=== PATIENT | male | born 1935 | race Caucasian/White ===

== ENCOUNTER 2018-03-12 13:23 | Inpatient (IN) | payer OTHER, BC ==
--- NOTE | 2018-03-12 14:11 | PDOC ---
History of Present Illness <Elysia Thompson - Last Filed: 03/12/18 18:00> - History of Present Illness Initial Comments: Patient is a 82 yo male, with a significant past medical history of GERD, BPH, who presents to the emergency department complaining of one days of myalgias, N/ V and abdominal pain. Pt complaining yesterday of generalized fatigue, poor PO intake. This AM, pt ate eggs for breakfast and after began have multiple episode of NBNB emesis with nausea and persistent midline burning abdominal pain with no radiation. Pt with no hx of other GI conditions, except GERD for which he takes antacid. No other medical conditions. No recent diet changes, sick contact, travel, trauma. Endorses occasional palpitations this AM. Denies f /c, CP, SOB, back pain, dysuria, cough, melena, hematochezia, rashe, LE swelling. Last BM yesterday, normal color and caliber with no blood. Seen at [facility] for symptoms, sent to ED due to elevated WBC 18, hematocrit elevated. Allergies: none Past surgical history: none Social History: No toxic habits PMD: None currently 03/12/18 14:19 <Ken Chowdary - Last Filed: 03/15/18 17:18> - General Chief Complaint: Pain Stated Complaint: NAUSEA Time Seen by Provider: 03/12/18 13:56 Past History <Elysia Thompson - Last Filed: 03/12/18 18:00> - Past Medical History Anemia: No Asthma: No Cancer: No Cardiac Disorders: No CVA: No COPD: No CHF: No Dementia: No Diabetes: No GI Disorders: Yes (acid reflux) Disorders: No HTN: No Hypercholesterolemia: No Liver Disease: No Seizures: No Thyroid Disease: No - Suicide/Smoking/Psychosocial Hx Smoking History: Never smoked Have you smoked in the past 12 months: No Information on smoking cessation initiated: No Hx Alcohol Use: No Drug/Substance Use Hx: No Substance Use Type: None <Ken Chowdary - Last Filed: 03/15/18 17:18> - Past Medical History Allergies/Adverse Reactions: Allergies Allergy/AdvReac Type Severity Reaction Status Date / Time Fish Containing Products Allergy Verified 03/12/18 13:39 Home Medications: Ambulatory Orders Finasteride 5 mg PO DAILY 03/12/18 Omeprazole 20 mg PO DAILY 03/12/18 Tamsulosin HCl 0.4 mg PO DAILY 03/12/18 Review of Systems - Review of Systems Comments:: 03/12/18 14:43 GENERAL/CONSTITUTIONAL: No fever or chills. +weakness. HEAD, EYES, EARS, NOSE AND THROAT: No change in vision. No ear pain or discharge. No sore throat. CARDIOVASCULAR: +palpitations. No chest pain or shortness of breath RESPIRATORY: No cough, wheezing, or hemoptysis. GASTROINTESTINAL: +N/V. No diarrhea or constipation. GENITOURINARY: No dysuria, frequency, or change in urination. MUSCULOSKELETAL: +Diffuse myalgias. No joint pain. No neck or back pain. SKIN: No rash NEUROLOGIC: No headache, vertigo, loss of consciousness, or change in strength/ sensation. ENDOCRINE: No increased thirst. No abnormal weight change HEMATOLOGIC/LYMPHATIC: No anemia, easy bleeding, or history of blood clots. ALLERGIC/IMMUNOLOGIC: No hives or skin allergy. <Ken Chowdary - Last Filed: 03/15/18 17:18> *Physical Exam - Vital Signs Last Vital Signs Temp Pulse Resp BP Pulse Ox 97.8 F 84 18 120/64 92 L 03/12/18 13:39 03/12/18 14:17 03/12/18 13:39 03/12/18 13:39 03/12/18 14:17 <Elysia Thompson - Last Filed: 03/12/18 18:00> - Vital Signs Last Vital Signs Temp Pulse Resp BP Pulse Ox 97.8 F 106 H 18 120/64 84 L 03/12/18 13:39 03/12/18 13:39 03/12/18 13:39 03/12/18 13:39 03/12/18 13:39 - Physical Exam Comments: GENERAL: Eldelry man, Awake, alert, and fully oriented, in mild distress, constant retching during interview HEAD: No signs of trauma, normocephalic, atraumatic EYES: PERRLA, EOMI, sclera anicteric, conjunctiva clear ENT: Auricles normal inspection, hearing grossly normal, nares patent, oropharynx clear without exudates. Moist mucosa NECK: Normal ROM, supple, no lymphadenopathy, JVD, or masses LUNGS: +Bibasilar crackles. No distress, speaks full sentences HEART: Regular rate and rhythm, normal S1 and S2, no murmurs, rubs or gallops, peripheral pulses normal and equal bilaterally. ABDOMEN: Distended, diffusely tender to palpation, primarily in the epigastric region. + murphys. normoactive bowel sounds. voluntary guarding, no rebound. No masses EXTREMITIES : Normal inspection, Normal range of motion, no edema. No clubbing or cyanosis. NEUROLOGICAL: Cranial nerves II through XII grossly intact. Normal speech, normal gait, no focal sensorimotor deficits SKIN: Warm, Dry, normal turgor, no rashes or lesions noted 03/12/18 14:44 <Ken Chowdary - Last Filed: 03/15/18 17:18> ED Treatment Course - LABORATORY CBC & Chemistry Diagram: 03/12/18 14:45 03/12/18 14:45 - ADDITIONAL ORDERS Additional order review: Laboratory Results 03/12/18 03/12/18 03/12/18 15:13 14:45 14:45 Anticoagulation Therapy No Result Required. Puncture Site Right radial ABG pH 7.53 H ABG pCO2 at Pt Temp 44.2 ABG pO2 at Pt Temp 62.5 L ABG HCO3 36.8 H ABG O2 Sat (Measured) 93.2 ABG O2 Content 23.5 H ABG Base Excess 12.2 H Fernando Test Positive Carboxyhemoglobin 1.8 Methemoglobin 1.2 O2 Delivery Device Non-rebreather Oxygen Flow Rate Yes Vent Mode No Result Required. Vent Rate No Result Required. Mechanical Rate No Result Required. Pressure Support Vent No Result Required. Sodium 132 L Potassium 4.1 Chloride 85 L D Carbon Dioxide 35 H D Anion Gap 12 BUN 26 H D Creatinine 1.5 H D Creat Clearance w eGFR 45.03 Random Glucose 191 H D Lactic Acid 3.4 H* Calcium 10.1 Total Bilirubin 3.3 H D AST 79 H D ALT 67 D Alkaline Phosphatase 98 D Creatine Kinase 527 H Creatine Kinase Index 1.0 CK-MB (CK-2) 5.556 H Troponin I 0.02 Total Protein 7.5 Albumin 3.5 Lipase 84 03/12/18 14:45 RBC 6.09 H D MCV 89.7 MCHC 33.7 RDW 12.8 MPV 8.9 Neutrophils % 87.5 H D Lymphocytes % 5.9 L D Monocytes % 6.3 Eosinophils % 0.0 D Basophils % 0.3 - Medications Given in the ED: ED Medications Discontinued Medications Generic Name Dose Route Start Last Admin Trade Name Tushar PRN Reason Stop Dose Admin Ondansetron HCl 4 mg 03/12/18 14:18 03/12/18 15:19 Zofran Injection IVPUSH 03/12/18 14:19 4 mg ONCE ONE Administration <Elysia Thompson - Last Filed: 03/12/18 18:00> - LABORATORY CBC & Chemistry Diagram: 03/15/18 05:55 03/15/18 05:55 <Ken Chowdary - Last Filed: 03/15/18 17:18> Medical Decision Making - Medical Decision Making 82 yo male, with a significant past medical history of GERD, BPH, who presents to the emergency department complaining of one days of myalgias, N/V and abdominal pain. Pt satting 84% on 4LC. PE noted as above. Ddx included PUD, gastritis, SBO, constipation, ileus, boerhaves, ACS, pancreatitis, PE. Plan: - EKG, CXR, ABG - CMP, CBC, lipase, lactid acid, trops, blood cultures - methhemoglobin, carboxyhemoglobin - UA - Will send stool culture, GE panel, O+P - Likely admission - Will order for zofran IV and NRB for O2. 03/12/18 14:49 Pt satting 92% on 100% NRB. No acute respiratory distress at this time. Lung exam notable for BL decreased breath sounds at bases. ABG notable for 7.53/64/ 36. Must consider PE at this point, consider tachycardia and hypoxia on admission, although more likely hypoxia secondary to atelectasis and poor air entry secondary to abdominal distension, splinting, retching. Will bolus 1L given Cr 1.5, consider starting anticoagulation. 03/12/18 17:00 CT confirmed SBO secondary to incarcerated bowel in L inguinal hernia. Pt made NPO, NG tube placed, drained 5L gastric fluid initially. General surgery consulted, spoke with Dr. Clement to discuss case. Surgery recommended icing and attempt at reduction at bedside. Also, mentioned he had two surgeries pending and was over 30 minutes away. Rediscussed case with Attending Dr. Thompson. Given acuity of presentation and imaging results, consulted Dr. Manpreet Fox for surgical consult. Pt seen by Dr. fox, recommend IVF bolus, abx coverage admission to Telemetry and likely OR. [employer] microblog sent, awaiting callback 03/12/18 19:29 <Ken Chowdary - Last Filed: 03/15/18 17:18> *DC/Admit/Observation/Transfer <Elysia Thompson - Last Filed: 03/12/18 18:00> <Ken Chowdary - Last Filed: 03/15/18 17:18> Diagnosis at time of Disposition: Incarcerated left inguinal hernia - Discharge Dispostion Condition at time of disposition: Critical
[2018-03-12] MEDS ORDERED: ONDANSETRON 4 MG/2 ML VIAL IVPUSH PRN ×2 (14:18→21:15)
[2018-03-12] MEDS ORDERED: ONDANSETRON 4 MG/2 ML VIAL IVPUSH ONE ×2 (14:18→22:21)
[2018-03-12 14:58] LABS: BASO % 0.3 % (0-2.0); HEMATOCRIT 54.6 % (35.4-49); HEMOGLOBIN 18.4 GM/dL (11.7-16.9); LYMPH % 5.9 % (8-40); MCH 30.2 pg (25.7-33.7); MCHC 33.7 g/dl (32.0-35.9); MEAN CELL VOLUME 89.7 fl (80-96); MEAN PLT VOLUME 8.9 fl (7.5-11.1); MONO % 6.3 % (3.8-10.2); NEUT % 87.5 % (42.8-82.8); PLATELET COUNT 276 K/MM3 (134-434); RBC 6.09 M/mm3 (4.00-5.60); RDW 12.8 % (11.9-15.9)
[2018-03-12] MEDS ORDERED: ONDANSETRON 4 MG/2 ML VIAL ONE ×3 (15:03→22:05)
[2018-03-12 15:19] LABS: ALBUMIN 3.5 g/dl (3.4-5.0); ANION GAP 12 (8-16); BILIRUBIN,TOTAL 3.3 mg/dL (0.2-1.0); BLOOD UREA NITROGEN 26 mg/dL (7-18); CALCIUM 10.1 mg/dL (8.5-10.1); CHLORIDE 85 mmol/L (98-107); CO2 35 mmol/L (21-32); CREATININE 1.5 mg/dL (0.7-1.3); GLUCOSE,RANDOM 191 mg/dL (74-106); LIPASE 84 U/L (73-393); SGPT/ALT 67 U/L (12-78); SODIUM 132 mmol/L (136-145); TOT PROT 7.5 g/dl (6.4-8.2)
[2018-03-12 15:22] LABS: ALK PHOS 98 U/L (45-117)
[2018-03-12 15:24] LABS: POTASSIUM 4.1 mmol/L (3.5-5.1); SGOT/AST 79 U/L (15-37)
[2018-03-12 16:31] LABS: ARTERIAL BLD GAS O2 SATURATION 93.2 % (90-98.9); ARTERIAL BLOOD GAS BASE EXCESS 12.2 meq/l (-2-2); ARTERIAL BLOOD GAS PCO2 44.2 mmHg (35-45); ARTERIAL BLOOD GAS PO2 62.5 mmHg (68-100); ARTERIAL BLOOD GAS pH 7.53 (7.35-7.45); CARBOXYHEMOGLOBIN 1.8 gm% (0.5-2.0)
[2018-03-12 16:33] LABS: ALLENS TEST POSITIVE
[2018-03-12] MEDS ORDERED: LACTATED RINGERS SOLUTION 1,000 ML/1,000 ML INFUS.BAG IV STA ×2 (17:04→19:49)
[2018-03-12] MEDS ORDERED: PIPERACILLIN/TAZOB 4.5 GM 4.5 GM in DEXTROSE 5%-WATER - 100 ML IVPB ONE (17:46)
[2018-03-12] MEDS ORDERED: PIPERACILLIN/TAZOB 4.5 GM 4.5 GM/100 ML BAG IVPB ONE (17:51)
[2018-03-12] MEDS ORDERED: morphine SULFATE 4 MG/ML VIAL IVPUSH ONE (18:17)
[2018-03-12] MEDS ORDERED: LIDOCAINE HCL 2% JELLY (5 ML/TUBE) ONE (18:22)
--- NOTE | 2018-03-12 19:04 | PDOC ---
Attending Attestation - Resident Resident Name: Ken Chowdary - ED Attending Attestation I have performed the following: I have examined & evaluated the patient, The case was reviewed & discussed with the resident, I agree w/resident's findings & plan, Exceptions are as noted - HPI HPI: 03/12/18 18:52 Mr Guido is a 82-year-old male who presents emergency department from [facility] due to hypoxia, abdominal distention. Patient's states that his symptoms began this morning. He was noted to have epigastric pain, was examined multiple episodes of emesis. His notes that his abdomen is distended. Patient's thought he was suffering from an upper respiratory infection. On examination: Patient is noted to be hypoxic. Decreased breath sounds at the bases. Patient's abdomen is distended, tender to palpation. - Physicial Exam PE: 03/12/18 19:04 GENERAL: The patient is in no acute distress. LUNGS: Decreased breath sounds at the bases. HEART:Regular rate and rhythm, normal S1 and S2 without murmur, rub or gallop. ABDOMEN: Soft, abd distention, epigastric trenderness to palpation EXTREMITIES: Normal range of motion, no edema. NEUROLOGICAL: Cranial nerves II through XII grossly intact. Normal speech. No focal neurological deficits. MUSCULOSKELETAL: Back non-tender to palpation, no CVA tenderness SKIN: Warm, Dry, normal turgor, no rashes or lesions noted. - Medical Decision Making 03/12/18 19:04 Laboratory Tests 03/12/18 03/12/18 03/12/18 14:45 14:45 14:45 WBC 17.0 H D Hgb 18.4 H D Hct 54.6 H D Plt Count 276 D Neutrophils % 87.5 H D Lymphocytes % 5.9 L D ABG pH ABG pCO2 at Pt Temp ABG pO2 at Pt Temp ABG HCO3 Sodium 132 L Potassium 4.1 Chloride 85 L D Carbon Dioxide 35 H D Anion Gap 12 BUN 26 H D Creatinine 1.5 H D Random Glucose 191 H D Lactic Acid 3.4 H* Creatine Kinase 527 H Creatine Kinase Index 1.0 CK-MB (CK-2) 5.556 H Troponin I 0.02 03/12/18 15:13 WBC Hgb Hct Plt Count Neutrophils % Lymphocytes % ABG pH 7.53 H ABG pCO2 at Pt Temp 44.2 ABG pO2 at Pt Temp 62.5 L ABG HCO3 36.8 H Sodium Potassium Chloride Carbon Dioxide Anion Gap BUN Creatinine Random Glucose Lactic Acid Creatine Kinase Creatine Kinase Index CK-MB (CK-2) Troponin I CT unofficially read Demonstrates: Bibasilar infiltrates SBO ? incarcerated left inguinal hernia Pt likely with incarcerated hernia with resulting SBO, emesis with aspiration Critical Care Time/MDM Note Total Critical Care Time: 120 Critical Care Statement: The care of this patient involved high complexity decision making to prevent further life threatening deterioration of the patient 's condition and/or to evaluate & treat vital organ system(s) failure or risk of failure.
[2018-03-12] MEDS ORDERED: CLINDAMYCIN 600MG PREMIX IVPB 600 MG/50 ML BAG IVPB ONE ×2 (19:15→20:44)
[2018-03-12 19:35] LABS: BASO % 0.2 % (0-2.0); EOS % 0.1 % (0-4.5); HEMATOCRIT 52.4 % (35.4-49); HEMOGLOBIN 17.7 GM/dL (11.7-16.9); LYMPH % 25.5 % (8-40); MCH 30.2 pg (25.7-33.7); MCHC 33.7 g/dl (32.0-35.9); MEAN CELL VOLUME 89.7 fl (80-96); MEAN PLT VOLUME 8.6 fl (7.5-11.1); MONO % 9.2 % (3.8-10.2); PLATELET COUNT 214 K/MM3 (134-434); RBC 5.84 M/mm3 (4.00-5.60); RDW 12.8 % (11.9-15.9)
--- NOTE | 2018-03-12 19:55 | CONSULT ---
Consult Consult Specialty:: general surgery Referred by:: Elysia Thompson MD Reason for Consultation:: SBO with incarcerated LIH - History of Present Illness Chief Complaint: abdominal distension and vomiting History of Present Illness: 82 yo male PMH BPH, degernerative disc disease (cervical), diverticulosis, hemorrhoids presented to the ED with abdominal pain and vomiting for on day. He reports that he was weight training yesterday and developed some left groin pain. He awoke this morning with hoarseness and significant abdominal distension. He did not have a history of groin hernia, but may have had an umbilical hernia repair. He reports several episodes of bilious emesis 10 since morning and he has not been passing flatus. Last BM was yesterday and was normal. Previous colonoscopy and EGD revealing diverticulum and a hiatal hernia. No recent weight loss, family history of cancer. In the ED he has been tachycardic 104, had a CT scan that shows a SBO with unclear transition point, His lactic acid on triage was 3.4. He has an NGT (55cm) that put out 5 liters of output since placement. We were called as a second career development consultant, after the other surgeon was unavailable. We were asked to assess. - History Source History Provided By: Patient, Medical Record Limitations to Obtaining History: No Limitations - Past Medical History Renal/: Yes: BPH Musculoskeletal: Yes: Osteoarthritis - Past Surgical History Past Surgical History: Yes: Hernia Repair (umbilcal?) - Alcohol/Substance Use Hx Alcohol Use: No History of Substance Use: reports: None - Smoking History Smoking history: Never smoked Have you smoked in the past 12 months: No - Social History Usual Living Arrangement: With Spouse (49yrs) Occupation: retired [employer] Place of : [facility] History of Recent Travel: No Home Medications - Allergies Allergies/Adverse Reactions: Allergies Allergy/AdvReac Type Severity Reaction Status Date / Time Fish Containing Products Allergy Verified 03/12/18 13:39 - Home Medications Home Medications: Ambulatory Orders Finasteride 5 mg PO DAILY 03/12/18 Omeprazole 20 mg PO DAILY 03/12/18 Tamsulosin HCl 0.4 mg PO DAILY 03/12/18 Review of Systems - Review of Systems Constitutional: denies: Chills, Fever, Unintentional Wgt. Loss, Weakness Eyes: denies: Blind Spots, Recent Change in Vision Neck: reports: Pain on Movement, Stiffness Cardiovascular: denies: Chest Pain, Palpitations Respiratory: denies: Cough, SOB Gastrointestinal: reports: Abdominal Pain, Bloating, Indigestion, Vomiting Genitourinary: reports: Frequency. denies: Burning, Discharge Breasts: reports: No Symptoms Reported. denies: Pain Musculoskeletal: reports: Back Pain Integumentary: denies: Lesions, Rash Neurological: denies: Seizure, Syncope Endocrine: denies: Unexplained Weight Gain, Unexplained Weight Loss Hematology/Lymphatic: denies: Easily Bruised, Excessive Bleeding Psychiatric: denies: Anxiety, Depression Physical Exam Vital Signs: Vital Signs Temperature 97.8 F 03/12/18 13:39 Pulse Rate 84 03/12/18 14:17 Respiratory Rate 18 03/12/18 13:39 Blood Pressure 120/64 03/12/18 13:39 O2 Sat by Pulse Oximetry (%) 92 L 03/12/18 14:17 Vital Signs Period Temp Pulse Resp BP Sys/Ceballos Pulse Ox Last 24 Hr 97.8 F-98.2 F 82-106 16-98 77-142/52-66 84-98 Constitutional: Yes: Well Nourished, No Distress, Calm Eyes: Yes: Conjunctiva Clear, EOM Intact HENT: Yes: Atraumatic, Normocephalic Neck: Yes: Supple, Trachea Midline, Other (NGT left nare) Cardiovascular: Yes: Tachycardia, S1, S2 Respiratory: Yes: Regular, On Nasal O2, Rales (posterolaterally bilaterally) Gastrointestinal: Yes: Normal Bowel Sounds, Soft, Distention, Tenderness, Other (non reducible LIH). No: Tenderness, Epigastrium, Tenderness, Rebound ...Rectal Exam: Yes: Sphincter Tone Normal. No: Hemorrhoids/External, Mass Renal/: No: CVA Tenderness - Left, CVA Tenderness - Right Musculoskeletal: No: Muscle Pain, Muscle Weakness Extremities: No: Calf Tenderness, Cool, Cyanosis Edema: No Peripheral Pulses WNL: Yes Integumentary: No: Jaundice, Rash Neurological: Yes: Alert, Oriented Psychiatric: Yes: Alert, Oriented Labs: CBC, BMP 03/12/18 19:26 Imaging - Results Chest X-ray: Report Reviewed, Image Reviewed (bilateral pleural effusions, RIJ TLC) Cat Scan: Report Reviewed (Transition unclear, bilateral IH, possible bilateral pneumonitis), Image Reviewed Problem List - Problems (1) Incarcerated left inguinal hernia Assessment/Plan: 82yo male MMP relatively healthy with SBO abdominal pain non reducible LIH, Lactic acid 3.4->6.9, Tbili >3, WBC 17->2, CTscan with SBO, unclear transition point and no clear bowel ischemia identified (reviewed in the phone with Dr. Torres). Bibasilar consolidation and hoarsness may be a sequela of an aspiration. Given this presentation decision to proceed with surgical exploration was made, and discussed at length with the patient and family. NPO and IVF hydration NGT decompression empiric IV antibiotics trend lactic acid Discussed with patient risks, benefits and alternatives of exploratory laparotomy, possible bowel ressection, possible ostomy, including but not limited to bleeding, infection, injury to abdominal structures, leak or injury, intraabdominal abscess, need for further procedures, sepsis, ; alternatives include antibiotics, delayed or no surgery - risks of this include failure of nonoperative therapy, perforation, sepsis, recurrence, . Patient desires to proceed with operation - will take to OR for above. Informed consent signed for same. Code(s): K40.30 - UNIL INGUINAL HERNIA, W OBST, W/O GANGR, NOT SPCF RECUR (2) BPH (benign prostatic hyperplasia) Code(s): N40.0 - BENIGN PROSTATIC HYPERPLASIA WITHOUT LOWER URINRY TRACT SYMP Qualifiers: Lower urinary tract symptom presence: symptoms present Lower urinary tract symptom detail: urinary frequency Qualified Code(s): N40.1 - Benign prostatic hyperplasia with lower urinary tract symptoms; R35.0 - Frequency of micturition ; R35.0 - Frequency of micturition (3) DDD (degenerative disc disease), cervical Code(s): M50.30 - OTHER CERVICAL DISC DEGENERATION, UNSP CERVICAL REGION (4) SBO (small bowel obstruction) Code(s): K56.609 - UNSP INTESTNL OBST, UNSP TO PARTIAL VERSUS COMPLETE OBST (5) Aspiration pneumonia of both lower lobes due to gastric secretions Code(s): J69.0 - PNEUMONITIS DUE TO INHALATION OF FOOD AND VOMIT
[2018-03-12 20:04] LABS: ALBUMIN 2.9 g/dl (3.4-5.0); ANION GAP 14 (8-16); BILIRUBIN,TOTAL 3.6 mg/dL (0.2-1.0); BLOOD UREA NITROGEN 33 mg/dL (7-18); CALCIUM 9.9 mg/dL (8.5-10.1); CHLORIDE 88 mmol/L (98-107); CO2 33 mmol/L (21-32); CREATININE 1.9 mg/dL (0.7-1.3); GLUCOSE,RANDOM 160 mg/dL (74-106); POTASSIUM 3.6 mmol/L (3.5-5.1); SGOT/AST 54 U/L (15-37); SGPT/ALT 61 U/L (12-78); SODIUM 135 mmol/L (136-145)
[2018-03-12 20:05] LABS: ALK PHOS 76 U/L (45-117)
[2018-03-12] MEDS ORDERED: ceFAZolin SODIUM 1 GM VIAL ONE (20:26)
[2018-03-12] MEDS ORDERED: VANCOMYCIN 1,000 MG in DEXTROSE 5%-WATER - 250 ML IVPB ONE (20:34)
[2018-03-12] MEDS ORDERED: VANCOMYCIN 1 GRAM (PRE-DOCKED) 1,000 MG/250 ML BAG IVPB ONE (20:44)
[2018-03-12] MEDS ORDERED: PIPERACILLIN/TAZOB 2.25 GM 2.25 GM in DEXTROSE 5%-WATER - 50 ML IVPB SCH (21:00)
--- NOTE | 2018-03-12 21:07 | PDOC ---
*Physical Exam - Vital Signs Last Vital Signs Temp Pulse Resp BP Pulse Ox 98.2 F 84 98 H 99/52 96 03/12/18 13:48 03/12/18 14:17 03/12/18 20:54 03/12/18 20:54 03/12/18 20:54 ED Treatment Course - LABORATORY CBC & Chemistry Diagram: 03/19/18 05:20 03/19/18 05:20 - ADDITIONAL ORDERS Additional order review: Laboratory Results 03/12/18 03/12/18 03/12/18 19:26 19:26 15:13 Anticoagulation Therapy No Result Required. Puncture Site Right radial ABG pH 7.53 H ABG pCO2 at Pt Temp 44.2 ABG pO2 at Pt Temp 62.5 L ABG HCO3 36.8 H ABG O2 Sat (Measured) 93.2 ABG O2 Content 23.5 H ABG Base Excess 12.2 H Fernando Test Positive Carboxyhemoglobin 1.8 Methemoglobin 1.2 O2 Delivery Device Non-rebreather Oxygen Flow Rate Yes Vent Mode No Result Required. Vent Rate No Result Required. Mechanical Rate No Result Required. Pressure Support Vent No Result Required. Sodium 135 L Potassium 3.6 Chloride 88 L Carbon Dioxide 33 H Anion Gap 14 BUN 33 H D Creatinine 1.9 H D Creat Clearance w eGFR 34.28 Random Glucose 160 H Lactic Acid 6.6 H* Calcium 9.9 Total Bilirubin 3.6 H AST 54 H D ALT 61 Alkaline Phosphatase 76 D Creatine Kinase Creatine Kinase Index CK-MB (CK-2) Troponin I Total Protein 6.0 L Albumin 2.9 L Lipase 03/12/18 03/12/18 14:45 14:45 Anticoagulation Therapy Puncture Site ABG pH ABG pCO2 at Pt Temp ABG pO2 at Pt Temp ABG HCO3 ABG O2 Sat (Measured) ABG O2 Content ABG Base Excess Fernando Test Carboxyhemoglobin Methemoglobin O2 Delivery Device Oxygen Flow Rate Vent Mode Vent Rate Mechanical Rate Pressure Support Vent Sodium 132 L Potassium 4.1 Chloride 85 L D Carbon Dioxide 35 H D Anion Gap 12 BUN 26 H D Creatinine 1.5 H D Creat Clearance w eGFR 45.03 Random Glucose 191 H D Lactic Acid 3.4 H* Calcium 10.1 Total Bilirubin 3.3 H D AST 79 H D ALT 67 D Alkaline Phosphatase 98 D Creatine Kinase 527 H Creatine Kinase Index 1.0 CK-MB (CK-2) 5.556 H Troponin I 0.02 Total Protein 7.5 Albumin 3.5 Lipase 84 03/12/18 03/12/18 19:26 14:45 RBC 5.84 H 6.09 H D MCV 89.7 89.7 MCHC 33.7 33.7 RDW 12.8 12.8 MPV 8.6 8.9 Neutrophils % 65.0 D 87.5 H D Lymphocytes % 25.5 D 5.9 L D Monocytes % 9.2 6.3 Eosinophils % 0.1 D 0.0 D Basophils % 0.2 0.3 - Medications Given in the ED: ED Medications Discontinued Medications Generic Name Dose Route Start Last Admin Trade Name Freq PRN Reason Stop Dose Admin Lactated Ringer's 1,000 ml in 1,000 mls @ 1,000 mls/hr 03/12/18 17:04 17:48 Lactated Ringers Solution IV 03/12/18 18:03 1,000 mls/hr ONCE STA Administration Piperacillin Sod/Tazobactam 100 mls @ 200 mls/hr 03/12/18 17:46 03/12/18 18: 00 Sod 4.5 gm/ Dextrose IVPB 03/12/18 18:15 200 mls/hr ONCE ONE Administration Protocol Clindamycin Phosphate 600 mg in 50 mls @ 100 mls/hr 03/12/18 19:15 03/12/18 20:51 Cleocin 600 Mg Premix Ivpb - IVPB 03/12/18 19:44 100 mls/hr ONCE ONE Administration Protocol Lactated Ringer's 1,000 ml in 1,000 mls @ 1,000 mls/hr 03/12/18 19:49 20:51 Lactated Ringers Solution IV 03/12/18 20:48 1,000 mls/hr ONCE STA Administration Morphine Sulfate 2 mg 03/12/18 18:17 03/12/18 19:15 Morphine Sulfate IVPUSH 03/12/18 18:18 Not Given ONCE ONE Ondansetron HCl 4 mg 03/12/18 14:18 03/12/18 15:19 Zofran Injection IVPUSH 03/12/18 14:19 4 mg ONCE ONE Administration Medical Decision Making - Medical Decision Making 03/12/18 21:06 The patient is an 82M who presented with nausea, vomiting and abdominal pain. He 's found to have a high grade obstruction with an incarcerated hernia. WBC initially was 17, now 2.0. Lactate 3.4 and now 6.6. BP is 77/55, 2 fluid boluses are running. Will repeat. Vanc/zosyn ordered. Dr. Fox states he will operate on the patient tonight. Dr. Irwin accepts admission. [employer] Brandi accepts to ICU. Will place central line for pressors and fluids. Consent received from pt and family. 03/12/18 21:54 BP is 110/75. Consent obtained for CL. 03/12/18 22:24 Pt is continuing to spit up. I do not want to lay him flat for a procedure if he is nauseous. Giving 8 of zofran for nausea control. Will assess and monitor closely. 03/12/18 23:21 Central line placed at R IJ at 15 cm. Good blood return was noted on 1 of 3 ports. All ports flushed nicely. Procedure done in sterile technique and pt tolerated the procedure very well. 03/12/18 23:43 Pt set to go to OR with Dr. Fox. *DC/Admit/Observation/Transfer Diagnosis at time of Disposition: Incarcerated left inguinal hernia - Discharge Dispostion Condition at time of disposition: Critical Decision to Admit order: Yes - Referrals - Patient Instructions - Post Discharge Activity Procedures - Central Line Central Line Lumen: triple Central Line Position: internal jugular (R) Anesthesia: 1% Lidocaine Complications: none Post Central Line Insertion: sutured, good blood return (in 1/3 ports)
--- NOTE | 2018-03-12 21:15 | HP ---
CHIEF COMPLAINT: nausea Urology: Dr. Garrett HISTORY OF PRESENT ILLNESS: 82yo man with PMH of GERD, BPH, degenerative disc disease (cervical), diverticulosis, hemorrhoids who p/w abdominal pain and vomiting x 1 day after developing left groin pain during weight training. Following morning (AM of admission), pt woke-up with vocal hoarseness and developed non-radiating, burning, midline abd pain along with nausea and at least 10 episodes of bilious emesis. Aslo endorses productive cough and generalized fatigue for past 2 days. Patient's last meal was breakfast this morning. Reports last BM yesterday , +flatus while in ED. No recent diet changes, sick contact, travel, trauma. Denies fever, chills, and urinary symptoms. No chest pain or chest discomfort. ED course was notable for VS: T 97.8, HR 106, BP 120/64, pSaO2 84% on RA --> 97 % on NRB (1) CXR- bilateral lung infiltrates in bases (2) CT abdomen -SBO, b/l inguinal hernias with left sided hernia with part of sigmoid colon (3) NGT drained 5L bilious fluid (4) s/p 1 x dose Vanco, Zosyn, Clindamycin (5) Lactate 3.4 --> 6 (6) Surgery consulted (Dr. Fox) --> planing for OR tonight Recent Travel: none PAST MEDICAL HISTORY: see HPI PAST SURGICAL HISTORY: ? 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 Smoking: never Alcohol: none Drugs: none Family History: non-contributory Allergies: Fish Containing Products Allergy (Verified 03/12/18 13:39) HOME MEDICATIONS: Home Medications Medication Instructions Recorded Calcium Carbonate [Tums] 1 tab PO DAILY 03/25/13 Multivitamins [Multivit ([facility] 1 each PO DAILY 03/25/13 Formulary)] Psyllium Seed [Metamucil] 1 each PO DAILY 03/25/13 REVIEW OF SYSTEMS CONSTITUTIONAL: +generalized weakness, malaise Absent: fever, chills, diaphoresis, , loss of appetite, weight change HEENT: Absent: rhinorrhea, nasal congestion, throat pain, throat swelling, difficulty swallowing, mouth swelling, ear pain, eye pain, visual changes CARDIOVASCULAR: Absent: chest pain, syncope, palpitations, irregular heart rate, lightheadedness , peripheral edema RESPIRATORY: +cough Absent: , shortness of breath, dyspnea with exertion, orthopnea, wheezing, stridor, hemoptysis GASTROINTESTINAL: +abdominal pain, abdominal distension, nausea, vomiting Absent: diarrhea, constipation, melena, hematochezia GENITOURINARY: Absent: dysuria, frequency, urgency, hesitancy, hematuria, flank pain, genital pain MUSCULOSKELETAL: Absent: myalgia, arthralgia, joint swelling, back pain, neck pain SKIN: Absent: rash, itching, pallor HEMATOLOGIC/IMMUNOLOGIC: Absent: easy bleeding, easy bruising, lymphadenopathy, frequent infections ENDOCRINE: Absent: unexplained weight gain, unexplained weight loss, heat intolerance, cold intolerance NEUROLOGIC: Absent: headache, focal weakness or paresthesias, dizziness, unsteady gait, seizure, mental status changes, bladder or bowel incontinence PSYCHIATRIC: Absent: anxiety, depression, suicidal or homicidal ideation, hallucinations. PHYSICAL EXAMINATION Vital Signs - 24 hr 03/12/18 03/12/18 03/12/18 13:39 13:48 14:00 Temperature 97.8 F 98.2 F Pulse Rate 106 H 82 Pulse Rate [ 102 H Apical] Respiratory 18 25 H 30 H Rate Blood Pressure 120/64 Blood Pressure 142/62 [Right Arm] O2 Sat by Pulse 84 L 84 L 92 L Oximetry (%) 03/12/18 03/12/18 03/12/18 14:17 15:25 20:54 Temperature Pulse Rate 84 Pulse Rate [ Apical] Respiratory 24 98 H Rate Blood Pressure Blood Pressure 99/52 [Right Arm] O2 Sat by Pulse 92 L 91 L 96 Oximetry (%) GENERAL: aaox3, nad, non-toxic, on NRB, +voice hoarseness HEENT: sclera anicteric, conjunctiva clear, oropharynx clear without exudates, + NGT draining bilious fluid, +b/l hearing aids NECK: supple, no cervical LAD LUNGS: bibasilar crackles, no wheezing or rhonchi appreciated, no accessory muscle use HEART: RRR, normal s1/s2, no m/r/g ABDOMEN: soft, distended, ttp in epigastrum, +positive bowel sounds, non- reducible LIH, +umbilical scar UPPER EXTREMITIES: 2+ radial pulses, wwp, no cyanosis, no peripheral edema LOWER EXTREMITIES: 2+ DP pulses, wwp, no calf tenderness, no peripheral edema NEUROLOGICAL: Cranial nerves II-XII intact. Normal speech, +hoarseness PSYCHIATRIC: Cooperative. Good eye contact. Appropriate mood and affect. SKIN: Warm, dry, normal turgor, no rashes or lesions noted, normal capillary refill. CBC, BMP 03/12/18 19:26 03/12/18 19:26 Hepatic Panel Total Bilirubin 3.6 mg/dL (0.2-1.0) H 03/12/18 19:26 AST 54 U/L (15-37) H D 03/12/18 19:26 ALT 61 U/L (12-78) 03/12/18 19: Alkaline Phosphatase 76 U/L (45-117) D 03/12/18 19: Albumin 2.9 g/dl (3.4-5.0) L 03/12/18 19: Troponin, BNP 03/12/18 14:45 Troponin I 0.02 INR, PTT INR 1.19 (0.82-1.09) H 03/12/18 20:01 Urine Test Results Urine Color Liza 03/12/18 22:12 Urine Appearance Slcloudy 03/12/18 22:12 Urine pH 5.0 (5.0-8.0) 03/12/18 22:12 Ur Specific [place] 1.027 (1.001-1.035) 03/12/18 22:12 Urine Protein 1+ (NEGATIVE) H 03/12/18 22:12 Urine Glucose (UA) Negative (NEGATIVE) 03/12/18 22:12 Urine Ketones Negative (NEGATIVE) 03/12/18 22:12 Urine Blood 2+ (NEGATIVE) H 03/12/18 22:12 Urine Nitrite Negative (NEGATIVE) 03/12/18 22:12 Urine Bilirubin Negative (<2.0 mg/dL) 03/12/18 22:12 Ur Leukocyte Esterase Negative (NEGATIVE) 03/12/18 22:12 Ur Epithelial Cells Rare /HPF (FEW) 03/12/18 22:12 Urine Mucus Rare 03/12/18 22:12 EKG: Sinus tachycardia, rate 101, normal axis and internals, no ST/T wave changes, QTc [address]: bilateral consolidation in lower lobes CT A/P: high grade SBO, b/l inguinal hernias, LIH with bowel contents ASSESSMENT/PLAN: 82yo man with PMH of GERD, BPH, degenerative disc disease (cervical), diverticulosis, hemorrhoids who presented with 1 day of abdominal pain with bilious emesis and found to have severe sepsis 2/2 incarcerated LIH, SBO and bilateral PNA. #severe sepsis, likely multifactorial: incarcerated LIH with suspected ischemia (rising lactate), B/L aspiration PNA vs B/L CAP -ID consulted (Dr. Galvan) -Empiric coverage Vanc/Zosyn/Clinda -IVF (s/p 4L LR with 150cc/hr maintenance) -RIJ placed in ED due to concern for developing shock (BP 76/55, but responded to IVF resuscitation) -consider pressor support to maintain MAPs > 60 -Trend Lactate -Trend CBC -F/u Cultures, Urine Legionella #incarcerated L inguinal hernia, SBO -surgery consulted - plan for emergency ex-lap this evening -T&S, coags, EKG -NPO -Trend lactate #acute hypoxic respiratory failure, DDX: PNA vs PE (cannot due CTA due Cr function) -Pulm/Crit care consulted -O2 therapy to maintain SpaO2>90% -aspiration precautions -Empiric antibiotics #ANATOLIY, possibly 2/2 sepsis -Scott, Strict I&Os -Urine studies to calculate FeNa -consider renal u/s -renally dose meds -IVFs #FEN LR @ 150 lytes repleted NPO #PPX DVT - SCD's - hold anticoagulation pre-operatively GI - home PPI #DISPO: admit to ICU FULL code, confirmed with patient in ED, present d/w Dr. Dc Cantrell MD PGY1 - Internal Medicine, Night Sagger Filler Visit type - Emergency Visit Emergency Visit: Yes ED Registration Date: 03/12/18 Care time: The patient presented to the Emergency Department on the above date and was hospitalized for further evaluation of their emergent condition. - New Patient This patient is new to me today: Yes Date on this admission: 03/12/18 - Critical Care Critical Care patient: Yes Total Critical Care Time (in minutes): 60 Critical Care Statement: The care of this patient involved high complexity decision making to prevent further life threatening deterioration of the patient 's condition and/or to evaluate & treat vital organ system(s) failure or risk of failure. Hospitalist Screening - Colonoscopy Questionnaire Colonoscopy Questionnaire: Colonoscopy Questionnaire - Patient: 50 - 75 years old and never had a screening colonoscopy: No History of colon or rectal polyps, or CA: Unknown History of IBD, Crohn's disease or UC: Unknown History of abdominal radiation therapy as a child: Unknown - Relative: 1 with colon or rectal CA, or polyps at age 60 or younger: Unknown Colon or rectal CA diagnosed at age 45 or younger: Unknown Multiple relatives with colon or rectal CA: Unknown - Outcome: Screening Result: Negative Screen
[2018-03-12 21:26] LABS: INR 1.19 (0.82-1.09); PROTHROMBIN TIME (PATIENT) 13.5 SEC (9.7-13.0)
--- NOTE | 2018-03-12 21:27 | PN ---
Teaching Attending Note Name of Resident: Zulay Cantrell ATTENDING PHYSICIAN STATEMENT I saw and evaluated the patient. Chart, data, imaging reviewed. I reviewed the resident's note and discussed the case with the resident. I agree with the resident's findings and plan as documented. SUBJECTIVE: 82 yo male PMH BPH, degernerative disc disease (cervical), diverticulosis, hemorrhoids c/o abdominal pain and vomiting for one day. He also developed productive cough and hoarseness about 2 days ago, associated with some shortness of breath. Patient was found to have b/l lower lung infiltrates on his chest CT. On abdominal CT had SBO, and b/l inguinal hernias with left sided hernia with part of sigmoid colon in it. Pt with BM today. He is passing gas. Received at least 3L IV fluid in ER, clindamycin, and zosyn. Lactic acidosis+. Dr. Fox(surgery) was consulted and is aware of patient. OBJECTIVE: Last Vital Signs Temp Pulse Resp BP Pulse Ox 98.2 F 102 H 20 77/56 94 L 03/12/18 13:48 03/12/18 21:31 03/12/18 21:31 03/12/18 21:31 03/12/18 21:31 general -nad, nontoxic, aaox3 HEENT- ng tube draining green fluid neck- supple cv-s1+s2+ tachycardia chest- b/l lower lung crackles appreciated abdomen -soft, BS+, nt skin -no rashes seen Abnormal Lab Results 03/12/18 03/12/18 03/12/18 14:45 14:45 14:45 WBC 17.0 H D RBC 6.09 H D Hgb 18.4 H D Hct 54.6 H D Neutrophils % 87.5 H D Lymphocytes % 5.9 L D PT with INR INR ABG pH ABG pO2 at Pt Temp ABG HCO3 ABG O2 Content ABG Base Excess Sodium 132 L Chloride 85 L D Carbon Dioxide 35 H D BUN 26 H D Creatinine 1.5 H D Random Glucose 191 H D Lactic Acid 3.4 H* Total Bilirubin 3.3 H D AST 79 H D Creatine Kinase 527 H CK-MB (CK-2) 5.556 H Total Protein Albumin 03/12/18 03/12/18 03/12/18 15:13 19:26 19:26 WBC 2.0 L D RBC 5.84 H Hgb 17.7 H Hct 52.4 H Neutrophils % Lymphocytes % PT with INR INR ABG pH 7.53 H ABG pO2 at Pt Temp 62.5 L ABG HCO3 36.8 H ABG O2 Content 23.5 H ABG Base Excess 12.2 H Sodium 135 L Chloride 88 L Carbon Dioxide 33 H BUN 33 H D Creatinine 1.9 H D Random Glucose 160 H Lactic Acid Total Bilirubin 3.6 H AST 54 H D Creatine Kinase CK-MB (CK-2) Total Protein 6.0 L Albumin 2.9 L 03/12/18 03/12/18 19:26 20:01 WBC RBC Hgb Hct Neutrophils % Lymphocytes % PT with INR 13.50 H INR 1.19 H ABG pH ABG pO2 at Pt Temp ABG HCO3 ABG O2 Content ABG Base Excess Sodium Chloride Carbon Dioxide BUN Creatinine Random Glucose Lactic Acid 6.6 H* Total Bilirubin AST Creatine Kinase CK-MB (CK-2) Total Protein Albumin CT of chest reviewed- bibasilar lung infiltrates Abdomen CT -SBO, b/l inguinal hernias with larger left sided hernia with sigmoid colon caught in it ASSESSMENT AND PLAN: 82yo man with serve sepsis secondary to Community acquired pneumonia with hypoxemic resp failure with incarcerated left inguinal hernia. #Sepsis secondary multilobar PNA with lactic acidosis. -admit to MICU -IV fluid hydration -zosyn -vancomycin IV -sputum culture -blood cultures x2 -urine legionella ag -supplemental oxygen via NR mask -consult Bipap -advanced directives discussed, patient wishes to be full code -if hypotension develops, will place central line #incarcerated left inguinal hernia -surgery consulted -Dr. Fox, aware of case, scheduled for urgent surgery for hernia correction -NPO -intermittent suctioning via NG tube -IV fluid hydration -correct electrolytes -trend lactate level -pain control with IV morphine -PT, PTT, type and screen #ANATOLIY -may be 2/2 sepsis -send urine lytes, osm, serum osm -UA -renal u/s -avoid nephrotoxic meds -i/o -daily weights -quintero catheter #Leukocytosis/leukopenia- may be 2/2 sepsis -trend cbc -antibiotics as above DVT ppx- heparin sc
[2018-03-12] MEDS ORDERED: LACTATED RINGERS SOLUTION 1,000 ML/1,000 ML INFUS.BAG IV SCH (21:30)
[2018-03-12] MEDS ORDERED: SODIUM CHLORIDE 0.9% 1000 ML INFUS.BAG IV ONE (21:33)
[2018-03-12] MEDS ORDERED: MUPIROCIN 2% TOPICAL OINTMENT FOR DECOLONIZATION NS SCH (22:00)
[2018-03-12] MEDS ORDERED: CHLORHEXIDINE GLUCONATE 4% CLEANSER FOR DECOLONIZATION TP SCH (22:00)
[2018-03-12 23:31] LABS: URINE APPEARANCE SLCLOUDY; URINE BILIRUBIN NEGATIVE (<2.0 mg/dL); URINE COLOR AMBER; URINE GLUCOSE (UA) NEGATIVE (NEGATIVE); URINE KETONE NEGATIVE (NEGATIVE); URINE LEUK ESTERASE NEGATIVE (NEGATIVE); URINE NITRITE NEGATIVE (NEGATIVE); URINE UROBILINOGEN NEGATIVE mg/dL (0.2-1.0)
[2018-03-12 23:42] LABS: URINE PROTEIN 1+ (NEGATIVE)
[2018-03-12 23:43] LABS: EPI CELLS RARE /HPF (FEW); URINE HYALINE CAST 9 /lpf; URINE MUCUS RARE
[2018-03-13] MEDS ORDERED: PIPERACILLIN/TAZOB 2.25 GM 2.25 GM in DEXTROSE 5%-WATER - 50 ML IVPB SCH
[2018-03-13] MEDS ORDERED: SUCCINYLCHOLINE CHLORIDE 200 MG/10 ML VIAL ONE (01:36)
[2018-03-13] MEDS ORDERED: ROCURONIUM BROMIDE 50 MG/5 ML VIAL ONE (01:37)
[2018-03-13] MEDS ORDERED: DESFLURANE GAS 240 ML BOTTLE IH ONE (02:02)
[2018-03-13] MEDS ORDERED: PHENYLEPHRINE HCL 10 MG/1 ML SINGLE DOSE VIAL ONE (02:04)
[2018-03-13] MEDS ORDERED: DEXAMETHASONE SOD PHOSPHATE 4 MG/1 ML VIAL ONE (02:35)
--- NOTE | 2018-03-13 03:37 | OP ---
Operative Note - Note: Operative Date: 03/13/18 Pre-Operative Diagnosis: Small Bowel obstruction Operation: Exploratory Laparotomy, segmental terminal ileum ressection with primary anastomosis Findings: infarcted segment of mesentery terminal ileum, right inguinal hernia defect small 1cm, left inguinal hernia defect large 3cm, neither was repared acutely, colon was pale but viable with scattered diverticular disease Post-Operative Diagnosis: Same as Pre-op Surgeon: Manpreet Fox Senior Project Controls Specialist: Devonte Butcher Anesthesiologist/CHAIN SAW OPERATOR: Liz Esteban Anesthesia: General Specimens Removed: segment of terminal ileum Estimated Blood Loss (mls): 10 Drains & Tubes with Location: quintero, NGT Fluid Volume Replaced (mls): 1,000 Operative Report Dictated: Yes
[2018-03-13] MEDS ORDERED: fentaNYL CITRATE 250 MCG/5 ML VIAL ONE ×2 (03:46→13:00)
--- NOTE | 2018-03-13 03:51 | PN ---
Progress Note, Physician Chief Complaint: SBO History of Present Illness: 82 yo male PMH BPH, degernerative disc disease (cervical), diverticulosis, hemorrhoids presented to the ED with abdominal pain and vomiting for on day. He reports that he was weight training yesterday and developed some groin pain. He remains sedated and intubated in the ICU post op give poor saturation preop. He on low dose vasopressor support overnight. - Current Medication List Current Medications: Active Medications Chlorhexidine Gluconate (Hibiclens For Decolonization -) 1 applic TP HS JUDY Chlorhexidine Gluconate (Hibiclens For Decolonization -) 1 applic TP HS JUDY Piperacillin Sod/Tazobactam (Sod 2.25 gm/ Dextrose) 50 mls @ 100 mls/hr IVPB Q6H-IV JUDY PRN Reason: Protocol Piperacillin Sod/Tazobactam (Sod 2.25 gm/ Dextrose) 50 mls @ 100 mls/hr IVPB Q6H-IV JUDY Stop: 03/13/18 06:29 Lactated Ringer's (Lactated Ringers Solution) 1,000 ml in 1,000 mls @ 150 mls/ hr IV ASDIR JUDY Last Admin: 03/12/18 21:31 Dose: 1,000 mls/hr Mupirocin (Bactroban Ointment (For Decolonization) -) 1 applic NS BID JUDY Stop: 03/17/18 21:59 Mupirocin (Bactroban Ointment (For Decolonization) -) 1 applic NS BID JUDY Stop: 03/18/18 09:59 Ondansetron HCl (Zofran Injection) 4 mg IVPUSH Q6H PRN PRN Reason: NAUSEA Last Admin: 03/12/18 22:03 Dose: 4 mg - Objective Vital Signs: Vital Signs Temperature 98.2 F 03/12/18 13:48 Pulse Rate 82 03/12/18 22:02 Respiratory Rate 16 03/13/18 03:35 Blood Pressure 109/66 03/12/18 22:02 O2 Sat by Pulse Oximetry (%) 98 03/12/18 22:02 Vital Signs Period Temp Pulse Resp BP Sys/Ceballos Pulse Ox Last 24 Hr 97.8 F-99.2 F 77-106 13-98 77-142/14-69 84-98 Intake & Output 03/12/18 03/12/18 03/13/18 15:59 23:59 07:59 Intake Total 3057.5 Output Total 4000 835 Balance -4000 2222.5 Weight 174 lb 179 lb 177 lb Intake: IV 2987.5 DIPRIVAN - 1,000,000 mcg 50 In 100 ml @ 10 MCG/KG/MIN 4.736 mls/hr IV TITR JUDY Rx#:[id number] LACTATED RINGERS SOLUTION 1000 1,000 ml In 1,000 ml @ 150 mls/hr IV ASDIR JUDY Rx#:[id number] LACTATED RINGERS SOLUTION 300 1,000 ml In 1,000 ml @ 150 mls/hr IV ASDIR JUDY Rx#:[id number] Levophed - 8,000 Mcg In 37.5 D5w - 492 ml @ 5 MCG/MIN 18.75 mls/hr IV ASDIR JUDY Rx#:[id number] IVPB 70 Output: Gastric Drainage 3500 Urine 500 825 Quintero 500 600 Estimated Blood Loss 10 Other: Bowel Movement No Height 5 ft 9 in 5 ft 9 in Body Mass Index (BMI) 25.7 26.4 Weight Measurement Method Built in [facility] Built in [facility] Weight Measurement Method Est/Stated by Patient Constitutional: Yes: Well Nourished, No Distress, Calm Eyes: Yes: Conjunctiva Clear, EOM Intact HENT: Yes: Atraumatic, Normocephalic, Other (NGT present) Cardiovascular: Yes: Regular Rate and Rhythm, S1, S2, Other (Levophed low dose) Respiratory: Yes: Regular, Diminished, Mechanically Ventilated, Rales Gastrointestinal: Yes: Soft, Distention, Hypoactive Bowel Sounds ...Rectal Exam: Yes: Deferred Genitourinary: Yes: Quintero Present. No: CVA Tenderness - Left, CVA Tenderness - Right Musculoskeletal: No: Muscle Pain, Muscle Weakness Extremities: No: Cool, Cyanosis Edema: No Peripheral Pulses WNL: Yes Peripheral Pulses: Left Doralis Pedis: 2+, Right Dorsalis Pedis: 2+ Wound/Incision: Yes: Clean/Dry, Well Approximated, Dressing Dry and Intact. No : Draining Neurological: Yes: Alert, Oriented Psychiatric: Yes: Alert, Oriented Labs: CBC, BMP 03/12/18 19:26 03/12/18 19:26 INR, PTT INR 1.19 (0.82-1.09) H 03/12/18 20:01 Problem List - Problems (1) Strangulated inguinal hernia Assessment/Plan: 82yo male MMP relatively healthy with SBO abdominal pain non reducible LIH, Lactic acid 3.4->6.9->4.5, Tbili >3, WBC 17->2, CTscan with SBO, unclear transition point and no clear bowel ischemia identified (reviewed in the phone with Dr. Torres). Bibasilar pulmonary consolidation and hoarsness may be a sequela of an aspiration. POD#1 s/p Exploratory Laparotomy, segmental ressection of SB and primary stapled anastomosis for strangulated RIH. He will eventually need elective repair of bilateral inguinal hernia. ICU management NPO and IVF hydration NGT decompression continue quintero empiric IV antibiotics trend lactic acid GI and DVT prophylaxsis Pulmonary evaluation - weaning today? GI Evaluation - Tbili 3.5, 3.6 BP goal MAP 65-70, has a stapled small bowel anastomosis avoid lwo flow states will follow This patient is critically ill. Time spent reviewing chart, examining patient, talking with providers and/or family and documentation is 45 minutes Code(s): K40.30 - UNIL INGUINAL HERNIA, W OBST, W/O GANGR, NOT SPCF RECUR (2) Incarcerated left inguinal hernia Code(s): K40.30 - UNIL INGUINAL HERNIA, W OBST, W/O GANGR, NOT SPCF RECUR (3) BPH (benign prostatic hyperplasia) Code(s): N40.0 - BENIGN PROSTATIC HYPERPLASIA WITHOUT LOWER URINRY TRACT SYMP Qualifiers: Lower urinary tract symptom presence: symptoms present Lower urinary tract symptom detail: urinary frequency Qualified Code(s): N40.1 - Benign prostatic hyperplasia with lower urinary tract symptoms; R35.0 - Frequency of micturition ; R35.0 - Frequency of micturition (4) DDD (degenerative disc disease), cervical Code(s): M50.30 - OTHER CERVICAL DISC DEGENERATION, UNSP CERVICAL REGION (5) SBO (small bowel obstruction) Code(s): K56.609 - UNSP INTESTNL OBST, UNSP TO PARTIAL VERSUS COMPLETE OBST (6) Aspiration pneumonia of both lower lobes due to gastric secretions Code(s): J69.0 - PNEUMONITIS DUE TO INHALATION OF FOOD AND VOMIT
[2018-03-13] MEDS: PROPOFOL 1,000,000 MCG/100 ML VIAL IV SCH ×3 (04:00→12:00)
--- NOTE | 2018-03-13 04:02 | PROC ---
Procedure Note Procedure: Arterial Line Insertion Indication: BP monitoring, routine ABG In OR, pt. under general anesthesia. Sterile prep with chlorhexidine to right wrist. Radial pulse palpated. #20 Arrow catheter inserted over guidewire smoothly, without resistance after pulsatile blood noted in catheter. Transducer line attached, line zeroed, good waveform noted on monitor. Sterile dressing placed. No apparent complications.
[2018-03-13 04:04] LABS: ARTERIAL BLD GAS O2 SATURATION 93.7 % (90-98.9); ARTERIAL BLOOD GAS BASE EXCESS 8.8 meq/l (-2-2); ARTERIAL BLOOD GAS PCO2 46.2 mmHg (35-45); ARTERIAL BLOOD GAS PO2 68.4 mmHg (68-100); ARTERIAL BLOOD GAS pH 7.47 (7.35-7.45)
[2018-03-13 04:05] LABS: ALLENS TEST POSITIVE
--- NOTE | 2018-03-13 04:17 | CONSULT ---
Consult Consult Specialty:: Pulm/CCM Reason for Consultation:: Incarcerated hernia s/p exp lap - History of Present Illness History of Present Illness: 82 yom with PMHx BPH, degenerative disc disease (cervical), diverticulosis, hemorrhoids presented to the ED with abdominal pain and vomiting x1 day after developing left groin pain when weight training. Pt states he woke the next morning with hoarseness, abd distention, N/V x10 bilious fluid. In the ED T 97.8, HR 106, BP 120/64, O2 sat 84% on room air. Labs notable for lactate 3.4->6.6. Placed on 100% NRB. NGT to LWS drained ~5L bilious fluid. On exam had non reducible Lt inguinal hernia. CXR with BLL consolidations c/f aspiration pneumonitis. CTAP showed SBO. Surgery consulted who recommended emergency exp lap. 3L fluid bolus given for hypotension. Zosyn, clindamycin and vanco given empirically. In the OR exp lap done with resection of terminal ileum. 2L fluid for hypotension. EBL 50cc, UOP 75cc. Remained intubated d/t hypoxia. Transferred to ICU for post-op management. Rec'd in ICU intubated and sedated on Propofol and fent drip. HR 88, BP 91/53, O2 sat 92% on 100% FiO2. ABG 7.47, 46,68 on AC/VC 12, 500, 100% PEEP 0. Plt 20. Started on Levo drip for MAP 57. increased PEEP. - History Source History Provided By: Medical Record - Past Medical History Renal/: Yes: BPH Musculoskeletal: Yes: Osteoarthritis - Past Surgical History Past Surgical History: Yes: Hernia Repair (umbilcal?) - Alcohol/Substance Use Hx Alcohol Use: No History of Substance Use: reports: None - Smoking History Smoking history: Never smoked Have you smoked in the past 12 months: No - Social History Usual Living Arrangement: With Spouse (49yrs) Occupation: retired [employer] History of Recent Travel: No Home Medications - Allergies Allergies/Adverse Reactions: Allergies Allergy/AdvReac Type Severity Reaction Status Date / Time Fish Containing Products Allergy Verified 03/12/18 13:39 - Home Medications Home Medications: Ambulatory Orders Finasteride 5 mg PO DAILY 03/12/18 Omeprazole 20 mg PO DAILY 03/12/18 Tamsulosin HCl 0.4 mg PO DAILY 03/12/18 Family Disease History - Family Disease History Family History: Unable to Obtain Review of Systems Unable to obtain ROS, reason: intubated Physical Exam Vital Signs: Vital Signs Temperature 98.3 F 03/12/18 21:11 Pulse Rate 82 03/12/18 22:02 Respiratory Rate 16 03/13/18 03:35 Blood Pressure 109/66 03/12/18 22:02 O2 Sat by Pulse Oximetry (%) 98 03/12/18 22:02 Constitutional: Yes: Well Nourished, Calm Eyes: Yes: WNL, PERRL HENT: Yes: Atraumatic, Normocephalic Neck: Yes: Supple, Trachea Midline Cardiovascular: Yes: Regular Rate and Rhythm, S1, S2 Respiratory: Yes: Regular, CTA Bilaterally, Intubated, Mechanically Ventilated Gastrointestinal: Yes: Soft, Hypoactive Bowel Sounds Renal/: Yes: Quintero Present Extremities: Yes: WNL Edema: No Peripheral Pulses WNL: Yes Wound/Incision: Yes: Dressing Dry and Intact (midline adb incision) Neurological: Yes: Other (sedated) Labs: CBC, BMP 03/12/18 19:26 03/12/18 19:26 CBC,CMP WBC 7.2 K/mm3 (4.0-10.0) D 03/13/18 04:00 RBC 4.76 M/mm3 (4.00-5.60) 03/13/18 04:00 Hgb 14.5 GM/dL (11.7-16.9) D 03/13/18 04:00 Hct 43.2 % (35.4-49) D 03/13/18 04:00 MCV 90.7 fl (80-96) 03/13/18 04:00 MCH 30.5 pg (25.7-33.7) 03/13/18 04:00 MCHC 33.6 g/dl (32.0-35.9) 03/13/18 04:00 RDW 12.9 % (11.9-15.9) 03/13/18 04:00 Plt Count 165 K/MM3 (134-434) D 03/13/18 04:00 MPV 8.9 fl (7.5-11.1) 03/13/18 04:00 Neutrophils % 83.6 % (42.8-82.8) H D 03/13/18 04:00 Lymphocytes % 11.9 % (8-40) D 03/13/18 04:00 Monocytes % 4.4 % (3.8-10.2) 03/13/18 04:00 Eosinophils % 0.0 % (0-4.5) D 03/13/18 04:00 Basophils % 0.1 % (0-2.0) 03/13/18 04:00 Sodium 135 mmol/L (136-145) L 03/12/18 19:26 Potassium 3.6 mmol/L (3.5-5.1) 03/12/18 19:26 Chloride 88 mmol/L (98-107) L 03/12/18 19:26 Carbon Dioxide 33 mmol/L (21-32) H 03/12/18 19:26 Anion Gap 14 (8-16) 03/12/18 19:26 BUN 33 mg/dL (7-18) H D 03/12/18 19:26 Creatinine 1.9 mg/dL (0.7-1.3) H D 03/12/18 19:26 Creat Clearance w eGFR 34.28 (>60) 03/12/18 19:26 Random Glucose 160 mg/dL (74-106) H 03/12/18 19:26 Lactic Acid 6.6 mmol/L (0.0-2.0) H* 03/12/18 19:26 Calcium 9.9 mg/dL (8.5-10.1) 03/12/18 19:26 Total Bilirubin 3.6 mg/dL (0.2-1.0) H 03/12/18 19:26 AST 54 U/L (15-37) H D 03/12/18 19:26 ALT 61 U/L (12-78) 03/12/18 19:26 Alkaline Phosphatase 76 U/L (45-117) D 03/12/18 19:26 Creatine Kinase 527 IU/L (39-308) H 03/12/18 14:45 Creatine Kinase Index 1.0 % (0.0-5.0) 03/12/18 14:45 CK-MB (CK-2) 5.556 ng/mL (0.5-3.6) H 03/12/18 14:45 Troponin I 0.02 ng/ml (0.00-0.05) 03/12/18 14:45 Total Protein 6.0 g/dl (6.4-8.2) L 03/12/18 19:26 Albumin 2.9 g/dl (3.4-5.0) L 03/12/18 19:26 Lipase 84 U/L (73-393) 03/12/18 14:45 Current Medications Chlorhexidine Gluconate (Peridex -) 15 ml MM BID JUDY Chlorhexidine Gluconate (Hibiclens For Decolonization -) 1 applic TP HS JUDY Propofol (Diprivan -) 1,000,000 mcg in 100 mls @ 4.736 mls/hr IV TITR JUDY; 10 MCG/KG/MIN PRN Reason: Protocol Lactated Ringer's (Lactated Ringers Solution) 1,000 ml in 1,000 mls @ 150 mls/ hr IV ASDIR JUDY Last Admin: 03/13/18 04:32 Dose: 150 mls/hr Piperacillin Sod/Tazobactam (Sod 2.25 gm/ Dextrose) 50 mls @ 100 mls/hr IVPB Q6H-IV JUDY Stop: 03/13/18 15:29 Mupirocin (Bactroban Ointment (For Decolonization) -) 1 applic NS BID JUDY Stop: 03/17/18 21:59 Ondansetron HCl (Zofran Injection) 4 mg IVPUSH Q6H PRN PRN Reason: NAUSEA Pneumococcal 13-Valent Conj Vacc (Prevnar 13 Syringe -) 0.5 ml IM .ONCE ONE Stop: 03/13/18 04:25 Imaging - Results Chest X-ray: Report Reviewed Cat Scan: Report Reviewed Problem List - Problems (1) Aspiration pneumonia of both lower lobes due to gastric secretions Code(s): J69.0 - PNEUMONITIS DUE TO INHALATION OF FOOD AND VOMIT (2) Incarcerated left inguinal hernia Code(s): K40.30 - UNIL INGUINAL HERNIA, W OBST, W/O GANGR, NOT SPCF RECUR (3) SBO (small bowel obstruction) Code(s): K56.609 - UNSP INTESTNL OBST, UNSP TO PARTIAL VERSUS COMPLETE OBST (4) Strangulated inguinal hernia Code(s): K40.30 - UNIL INGUINAL HERNIA, W OBST, W/O GANGR, NOT SPCF RECUR Assessment/Plan 82 yom with PMHx BPH, degenerative disc disease, diverticulosis, hemorrhoids admitted with incarcerated LIH and aspiration pneumonitis now in ICU s/p exp lap with resection of terminal ileum and intubated with hypoxic respiratory failure Plan: Pulm/ID: Hypoxic respiratory faulre 2/2 aspiration pneumonitis -LTVV ARDSnet protocol for goal plat,30, ph 7.35-7.45; O2 sat.92 -Pulm toilet -Aspiration precautions -CXR, ABG -Wean FiO2 -Sedation for vent synchrony -Cont Zosyn for empiric coverage -f/u cultures CV: Shock vasodilatory/septic +/- hypovolemic -Fluid boluses -Vasopressor support for MAP>60 -CVP monitoring -MVO2 -TTE -Trend lactate -CBC monitor for post-op bleeding GI: S/p exp lap, incarcerated inguinal hernia -NPO -NGT to int LWS -Monitor for bleeding -PPI proph -Pain management Renal: ANATOLIY m/l pre-renal+/- ATN from sepsis and meds; mixed metabolic alkalosis and acidosis in setting of GI output and lactic acid -Monitor BMP and UOP -IVF -Renal dose meds -replete electrolytes -quintero cath DVT and GI prophylaxis Cleo Paz, RADHAP CC time 35mins
[2018-03-13 04:24] LABS: MCH 30.5 pg (25.7-33.7); MEAN PLT VOLUME 8.9 fl (7.5-11.1); RDW 12.9 % (11.9-15.9)
[2018-03-13] MEDS ORDERED: PIPERACILLIN/TAZOBACTAM 2.25 GM VIAL IVPB ONE ×3 (04:26→15:08)
[2018-03-13] MEDS ORDERED: DEXTROSE 5%-WATER - 50 ML IVPB ONE ×4 (04:26→17:23)
[2018-03-13 04:27] LABS: BASO % 0.1 % (0-2.0); HEMATOCRIT 43.2 % (35.4-49); HEMOGLOBIN 14.5 GM/dL (11.7-16.9); LYMPH % 11.9 % (8-40); MCHC 33.6 g/dl (32.0-35.9); MEAN CELL VOLUME 90.7 fl (80-96); MONO % 4.4 % (3.8-10.2); NEUT % 83.6 % (42.8-82.8); PLATELET COUNT 165 K/MM3 (134-434); RBC 4.76 M/mm3 (4.00-5.60); WHITE BLOOD COUNT 7.2 K/mm3 (4.0-10.0)
[2018-03-13] MEDS ORDERED: ONDANSETRON 4 MG/2 ML VIAL IVPUSH PRN (04:30)
[2018-03-13] MEDS ORDERED: LACTATED RINGERS SOLUTION 1,000 ML/1,000 ML INFUS.BAG IV SCH (04:30)
[2018-03-13] MEDS: PIPERACILLIN/TAZOB 2.25 GM 2.25 GM in DEXTROSE 5%-WATER - 50 ML IVPB SCH ×3 (04:46→15:11)
[2018-03-13 04:52] LABS: ALBUMIN 2.1 g/dl (3.4-5.0); ANION GAP 10 (8-16); BILIRUBIN,TOTAL 3.7 mg/dL (0.2-1.0); BLOOD UREA NITROGEN 34 mg/dL (7-18); CALCIUM 8.3 mg/dL (8.5-10.1); CHLORIDE 93 mmol/L (98-107); CO2 34 mmol/L (21-32); CREATININE 1.5 mg/dL (0.7-1.3); GLUCOSE,RANDOM 167 mg/dL (74-106); POTASSIUM 3.5 mmol/L (3.5-5.1); SGOT/AST 47 U/L (15-37); SGPT/ALT 52 U/L (12-78); SODIUM 137 mmol/L (136-145); TOT PROT 4.5 g/dl (6.4-8.2)
[2018-03-13] MEDS ORDERED: NOREPINEPHRINE BITARTRATE 4 MG/4 ML ML IV ONE (04:52)
[2018-03-13 04:53] LABS: ALK PHOS 52 U/L (45-117)
[2018-03-13] MEDS: FENTANYL INJECTION 500 MCG in DEXTROSE 5%-WATER - 90 ML IVPB SCH ×2 (05:09→13:03)
[2018-03-13] MEDS: NOREPINEPHRINE BITARTRATE 8,000 MCG in DEXTROSE 5%-WATER - 492 ML IV SCH ×2 (05:10→22:11)
[2018-03-13] MEDS ORDERED: NOREPINEPHRINE BITARTRATE 8,000 MCG in DEXTROSE 5%-WATER - 492 ML IV SCH (05:15)
[2018-03-13 05:35] LABS: ARTERIAL BLD GAS O2 SATURATION 97.5 % (90-98.9); ARTERIAL BLOOD GAS BASE EXCESS 9.4 meq/l (-2-2); ARTERIAL BLOOD GAS PCO2 45.9 mmHg (35-45); ARTERIAL BLOOD GAS PO2 90.8 mmHg (68-100); ARTERIAL BLOOD GAS pH 7.48 (7.35-7.45)
[2018-03-13] MEDS ORDERED: PNEUMOC 13-VAL CONJ-DIP CRM/PF 0.5 ML DISP.SYRIN IM ONE (09:00)
[2018-03-13] MEDS: MUPIROCIN 2% TOPICAL OINTMENT FOR DECOLONIZATION NS SCH ×2 (09:20→22:16)
[2018-03-13] MEDS: CHLORHEXIDINE GLUCONATE 0.12% 15ML CUP MM SCH ×2 (09:21→22:16)
[2018-03-13 09:25] LABS: MAGNESIUM 3.6 mg/dL (1.8-2.4); PHOSPHOROUS 4.3 mg/dL (2.5-4.9)
--- NOTE | 2018-03-13 09:57 | PN ---
Progress Note (short form) - Note Progress Note: Anesthesia postop note 82 y/o M s/p GA for emergency exploratory laparotomy, small bowel resection for incarcerated hernia. POD#1, in icu, intubated, vs marginal on pressors, aspiration pneumonia preop. No anesthesia complications.
[2018-03-13] MEDS ORDERED: MUPIROCIN 2% TOPICAL OINTMENT FOR DECOLONIZATION NS SCH (10:00)
--- NOTE | 2018-03-13 10:08 | OP ---
DATE OF OPERATION: 03/13/2018 PREOPERATIVE DIAGNOSIS: Small bowel obstruction. POSTOPERATIVE DIAGNOSIS: Small bowel obstruction secondary to incarcerated and strangulated right inguinal hernia, indirect. PROCEDURE: Exploratory laparotomy, segmental resection of terminal ileum with primary stabled anastomosis. ATTENDING SURGEON: Manpreet Fox MD GREY WASHER: Devonte Butcher MD ANESTHESIOLOGIST: Liz Esteban DO ANESTHESIA: General. ESTIMATED BLOOD LOSS: 10 mL. INTRAVENOUS FLUID: 1000 mL. DRAINS: Remaining Scott and NG tube postoperatively. SPECIMEN: Segment of terminal ileum, 4-5 cm. FINDINGS: Patient had an infarcted segment of mesentery at the terminal ileum which was resected with a wedge. The right inguinal hernia defect was small, narrow-mouthed, approximately 1 cm. He also had a left inguinal hernia which had a large defect, wide-mouthed, approximately 3 cm. Neither hernia was repaired in the acute setting given the bowel resection. Colon appeared pale but viable with scattered diverticular disease. The remainder of the intraabdominal viscera appeared atraumatic and normal. INDICATION: Patient is an 82-year-old male with history of bilateral inguinal hernias, have never been symptomatic. He was weight training 1 day prior, developed some groin pain and abdominal distention overnight. When he awoke, he had hoarse voice and a distended abdomen. He came in for evaluation. A CAT scan reviewed that he had a small bowel obstruction pattern with an unclear transition point but 2 obvious inguinal hernias. He was taken for exploratory laparotomy after being explained the risks, benefits, and alternatives, he signed informed consent and was taken for the precedent procedure. DESCRIPTION OF PROCEDURE: Patient was taken to the operating room, placed in supine position on the operating table with the left arm tucked and right arm extended in 90 degrees perpendicular to the body's axis. Patient had bilateral SCDs placed to compression. Patient was induced with general anesthesia and endotracheally intubated. He received preoperative antibiotics including Zosyn, clindamycin, vancomycin. A formal timeout was completed identifying the procedure. With all parties in agreement, we began with a midline laparotomy entry into the abdomen, was scribed on the skin and opened with a 10 blade scalpel. It was deepened and widened through subcutaneous tissue. That was after clipping, sterile prep and drape of the anterior abdominal wall. After identifying the midline fascia, after deepening and widening incision with Bovie cautery, we were able to identify the median fascia of the rectus. It was entered with Bovie cautery, and then the preperitoneal fat was elevated with clamps and entered with Metzenbaum scissors. Once a finger could be inserted into the abdomen, there was small amount of acidic fluid which a culture was sent. We then opened the remainder of the abdominal wound revealing distended loops of small bowel which immediately became apparent. We, at this time, began with a systematic exploration of the abdomen. The small bowel was eviscerated and protected out of the surgical field. Upon eviscerating the small bowel, we could see that there was an incarcerated loop of small bowel in the right lower quadrant. It appeared to be an indirect inguinal hernia with a narrow mouth of approximately 1 cm. This was reduced. The contents of this inguinal was mid portion of the terminal ileum mesentery which appeared infarcted and black. The bowel above this segment appeared viable. We took care then to explore the remainder of the small bowel and colon. The colon appeared pale but viable with scattered diverticular disease which appeared not acutely inflamed. The remainder of the bowel was ran proximally and appeared to have no additional traumatic site but was dilated. We ran this to the ligament of Trietz. The remainder of the transverse colon and right descending colon and sigmoid colon were also identified as it coursed. The rectum appeared uninvolved with the process. The stomach was slightly distended. The NG tube was checked for position. The liver appeared to have a small cystic mass on the dome. It was palpated but did not appear to be involved in the process. The gallbladder itself appeared long and collapsed and was dana egg blue. The remainder of the abdominal exploration appeared relatively normal except for a large left inguinal hernia, a 3-cm, broad-based, indirect hernia as well. We decided to forego repair of these hernia defects given the fact that we would require segmental resection of small bowel. We turned our attention then to the area of terminal ileum which had compromised mesentery. A section proximal and distal was selected for stapled resection. NANETTE size 60 was used to transect the bowel proximally and distally to the segment, and a wedge of mesentery including the infarcted segment was taken along with its arcade with a LigaSure device. Once it was resected, the specimen was passed for pathologic diagnosis. We then proceed with primary stapled anastomosis of the terminal ileum. Stapled anastomosis was fashioned with a NANETTE-60 and a TA-60 in standard fashion after approximating the arms of the small bowel. The anastomosis was fashioned without incident. The rent in the mesentery of the terminal ileum was then closed with 3-0 Vicryl. The crotch of the anastomosis was protected with additional 3-0 silk stitches. We then proceeded with irrigation of the entire site. We returned the small bowel to the abdomen in anatomic position and covered it with omentum. We then proceeded with closure of the abdomen. The closure of the abdomen in the midline fascia was done with number 1 looped PDS from the cranial and caudal poles of the midline laparotomy incision in standard running fashion and tied just above the umbilicus. The knot was buried, and after irrigation of the incision, skin was closed with panda. The skin was cleaned. Sterile dressings were placed. The patient had the NG tube secured, and Scott remained in place. Plan was to return the patient to ICU for precaution given his preoperative poor saturations and abdominal distention for weaning overnight. He was stable throughout the procedure. Did require some vasopressor support. He was returned to ICU in stable condition. MD CONCEPCION Cotton/[id number]
[2018-03-13] MEDS: PANTOPRAZOLE SODIUM 40 MG VIAL IVPUSH SCH (11:03)
--- NOTE | 2018-03-13 11:18 | EKG ---
Test Reason : Blood Pressure : / mmHG Vent. Rate : 101 BPM Atrial Rate : 101 BPM P-R Int : 180 ms QRS Dur : 080 ms QT Int : 336 ms P-R-T Axes : 053 -16 038 degrees QTc Int : 435 ms SINUS TACHYCARDIA WHEN COMPARED WITH ECG OF 17-NOV-2004 08:52, T WAVE AMPLITUDE HAS DECREASED IN ANTEROLATERAL LEADS Confirmed by JOSE IQBAL MD ([id number]) on 03/13/2018 11:18:23 AM Referred By: Confirmed By:JOSE IQBAL MD
[2018-03-13] MEDS ORDERED: DEXTROSE 5%-NORMAL SALINE 1,000 ML IV SCH (11:45)
--- NOTE | 2018-03-13 12:08 | PN ---
Teaching Attending Note Name of Resident: Luke Drake ATTENDING PHYSICIAN STATEMENT I saw and evaluated the patient. I reviewed the resident's note and discussed the case with the resident. I agree with the resident's findings and plan as documented. SUBJECTIVE: Patient seen and examined in the ICU. Remains intubated and sedated. AC Mode of vent, 80% FiO2. 5 meq NE for hemodynamic support. Poor UO. CXR: bilateral pleural effusions Intake & Output 03/10/18 03/11/18 03/12/18 03/13/18 23:59 23:59 23:59 23:59 Intake Total 3057.5 Output Total 4000 835 Balance -4000 2222.5 Weight 179 lb 177 lb Last Vital Signs Temp Pulse Resp BP Pulse Ox 97.8 F 78 13 107/54 96 03/13/18 10:00 03/13/18 10:00 03/13/18 11:15 03/13/18 10:00 03/13/18 09:00 Active Medications Chlorhexidine Gluconate (Peridex -) 15 ml MM BID JUDY Last Admin: 03/13/18 09:21 Dose: 15 ml Chlorhexidine Gluconate (Hibiclens For Decolonization -) 1 applic TP HS JUDY Propofol (Diprivan -) 1,000,000 mcg in 100 mls @ 4.736 mls/hr IV TITR JUDY; 10 MCG/KG/MIN PRN Reason: Protocol Last Admin: 03/13/18 11:18 Dose: 45 mcg/kg/min, 21.31 mls/hr Piperacillin Sod/Tazobactam (Sod 2.25 gm/ Dextrose) 50 mls @ 100 mls/hr IVPB Q6H-IV JUDY Stop: 03/13/18 15:29 Last Admin: 03/13/18 09:21 Dose: 100 mls/hr Fentanyl 500 mcg/ Dextrose 100 mls @ 10 mls/hr IVPB TITR JUDY; 50 MCG/HR PRN Reason: Protocol Last Admin: 03/13/18 05:09 Dose: 10 mls/hr Norepinephrine Bitartrate 8, (000 mcg/ Dextrose) 500 mls @ 18.75 mls/hr IV ASDIR JUDY; 5 MCG/MIN PRN Reason: Protocol Last Admin: 03/13/18 05:10 Dose: 5 mcg/min, 18.75 mls/hr Dextrose/Sodium Chloride (D5-Ns -) 1,000 mls @ 150 mls/hr IV ASDIR [facility] Mupirocin (Bactroban Ointment (For Decolonization) -) 1 applic NS BID [facility] Stop: 03/17/18 21:59 Last Admin: 03/13/18 09:20 Dose: 1 applic Ondansetron HCl (Zofran Injection) 4 mg IVPUSH Q6H PRN PRN Reason: NAUSEA Pantoprazole Sodium (Protonix Iv) 40 mg IVPUSH DAILY [facility] Last Admin: 03/13/18 11:03 Dose: 40 mg Constitutional: Yes: Intubated and sedated Eyes: Yes: WNL, PERRL HENT: Yes: Atraumatic, Normocephalic Neck: Yes: Supple, Trachea Midline Cardiovascular: Yes: Regular Rate and Rhythm, S1, S2 Respiratory: Yes: Intubated, Mechanically Ventilated, bilateral rhonchi Gastrointestinal: Yes: Soft, Hypoactive Bowel Sounds Renal/: Yes: Scott Present Extremities: Yes: WNL Edema: No Peripheral Pulses WNL: Yes Wound/Incision: Yes: Dressing Dry and Intact (midline abdominal incision) Neurological: Yes: Other (sedated) Labs: Laboratory Results - last 24 hr 03/12/18 03/12/18 03/12/18 14:45 14:45 14:45 WBC 17.0 H D RBC 6.09 H D Hgb 18.4 H D Hct 54.6 H D MCV 89.7 MCH 30.2 MCHC 33.7 RDW 12.8 Plt Count 276 D MPV 8.9 Neutrophils % 87.5 H D Lymphocytes % 5.9 L D Monocytes % 6.3 Eosinophils % 0.0 D Basophils % 0.3 PT with INR INR PTT (Actin FS) Anticoagulation Therapy Puncture Site ABG pH ABG pCO2 at Pt Temp ABG pO2 at Pt Temp ABG HCO3 ABG O2 Sat (Measured) ABG O2 Content ABG Base Excess Fernando Test Carboxyhemoglobin Methemoglobin O2 Delivery Device Oxygen Flow Rate Vent Mode Vent Rate Mechanical Rate PEEP Pressure Support Vent Sodium 132 L Potassium 4.1 Chloride 85 L D Carbon Dioxide 35 H D Anion Gap 12 BUN 26 H D Creatinine 1.5 H D Creat Clearance w eGFR 45.03 Random Glucose 191 H D Lactic Acid 3.4 H* Calcium 10.1 Phosphorus Magnesium Total Bilirubin 3.3 H D AST 79 H D ALT 67 D Alkaline Phosphatase 98 D Creatine Kinase 527 H Creatine Kinase Index 1.0 CK-MB (CK-2) 5.556 H Troponin I 0.02 Total Protein 7.5 Albumin 3.5 Lipase 84 Urine Color Urine Appearance Urine pH Ur Specific Simpson Urine Protein Urine Glucose (UA) Urine Ketones Urine Blood Urine Nitrite Urine Bilirubin Urine Urobilinogen Ur Leukocyte Esterase Urine WBC (Auto) Urine RBC (Auto) Ur Epithelial Cells Hyaline Casts Urine Mucus Ur Random Sodium Urine Creatinine Blood Type Antibody Screen 03/12/18 03/12/18 03/12/18 15:13 19:26 19:26 WBC 2.0 L D RBC 5.84 H Hgb 17.7 H Hct 52.4 H MCV 89.7 MCH 30.2 MCHC 33.7 RDW 12.8 Plt Count 214 D MPV 8.6 Neutrophils % 65.0 D Lymphocytes % 25.5 D Monocytes % 9.2 Eosinophils % 0.1 D Basophils % 0.2 PT with INR INR PTT (Actin FS) Anticoagulation Therapy No Result Required. Puncture Site Right radial ABG pH 7.53 H ABG pCO2 at Pt Temp 44.2 ABG pO2 at Pt Temp 62.5 L ABG HCO3 36.8 H ABG O2 Sat (Measured) 93.2 ABG O2 Content 23.5 H ABG Base Excess 12.2 H Fernando Test Positive Carboxyhemoglobin 1.8 Methemoglobin 1.2 O2 Delivery Device Non-rebreather Oxygen Flow Rate Yes Vent Mode No Result Required. Vent Rate No Result Required. Mechanical Rate No Result Required. PEEP Pressure Support Vent No Result Required. Sodium 135 L Potassium 3.6 Chloride 88 L Carbon Dioxide 33 H Anion Gap 14 BUN 33 H D Creatinine 1.9 H D Creat Clearance w eGFR 34.28 Random Glucose 160 H Lactic Acid Calcium 9.9 Phosphorus Magnesium Total Bilirubin 3.6 H AST 54 H D ALT 61 Alkaline Phosphatase 76 D Creatine Kinase Creatine Kinase Index CK-MB (CK-2) Troponin I Total Protein 6.0 L Albumin 2.9 L Lipase Urine Color Urine Appearance Urine pH Ur Specific Simpson Urine Protein Urine Glucose (UA) Urine Ketones Urine Blood Urine Nitrite Urine Bilirubin Urine Urobilinogen Ur Leukocyte Esterase Urine WBC (Auto) Urine RBC (Auto) Ur Epithelial Cells Hyaline Casts Urine Mucus Ur Random Sodium Urine Creatinine Blood Type Antibody Screen 03/12/18 03/12/18 03/12/18 19:26 20:01 20:01 WBC RBC Hgb Hct MCV MCH MCHC RDW Plt Count MPV Neutrophils % Lymphocytes % Monocytes % Eosinophils % Basophils % PT with INR 13.50 H INR 1.19 H PTT (Actin FS) Anticoagulation Therapy Puncture Site ABG pH ABG pCO2 at Pt Temp ABG pO2 at Pt Temp ABG HCO3 ABG O2 Sat (Measured) ABG O2 Content ABG Base Excess Fernando Test Carboxyhemoglobin Methemoglobin O2 Delivery Device Oxygen Flow Rate Vent Mode Vent Rate Mechanical Rate PEEP Pressure Support Vent Sodium Potassium Chloride Carbon Dioxide Anion Gap BUN Creatinine Creat Clearance w eGFR Random Glucose Lactic Acid 6.6 H* Calcium Phosphorus Magnesium Total Bilirubin AST ALT Alkaline Phosphatase Creatine Kinase Creatine Kinase Index CK-MB (CK-2) Troponin I Total Protein Albumin Lipase Urine Color Urine Appearance Urine pH Ur Specific Simpson Urine Protein Urine Glucose (UA) Urine Ketones Urine Blood Urine Nitrite Urine Bilirubin Urine Urobilinogen Ur Leukocyte Esterase Urine WBC (Auto) Urine RBC (Auto) Ur Epithelial Cells Hyaline Casts Urine Mucus Ur Random Sodium Urine Creatinine Blood Type AB POSITIVE Antibody Screen Negative 03/12/18 03/12/18 03/12/18 21:01 22:12 22:12 WBC RBC Hgb Hct MCV MCH MCHC RDW Plt Count MPV Neutrophils % Lymphocytes % Monocytes % Eosinophils % Basophils % PT with INR INR PTT (Actin FS) 27.3 Anticoagulation Therapy Puncture Site ABG pH ABG pCO2 at Pt Temp ABG pO2 at Pt Temp ABG HCO3 ABG O2 Sat (Measured) ABG O2 Content ABG Base Excess Fernando Test Carboxyhemoglobin Methemoglobin O2 Delivery Device Oxygen Flow Rate Vent Mode Vent Rate Mechanical Rate PEEP Pressure Support Vent Sodium Potassium Chloride Carbon Dioxide Anion Gap BUN Creatinine Creat Clearance w eGFR Random Glucose Lactic Acid Calcium Phosphorus Magnesium Total Bilirubin AST ALT Alkaline Phosphatase Creatine Kinase Creatine Kinase Index CK-MB (CK-2) Troponin I Total Protein Albumin Lipase Urine Color Liza Urine Appearance Slcloudy Urine pH 5.0 Ur Specific Simpson 1.027 Urine Protein 1+ H Urine Glucose (UA) Negative Urine Ketones Negative Urine Blood 2+ H Urine Nitrite Negative Urine Bilirubin Negative Urine Urobilinogen Negative Ur Leukocyte Esterase Negative Urine WBC (Auto) 2 Urine RBC (Auto) 8 Ur Epithelial Cells Rare Hyaline Casts 9 Urine Mucus Rare Ur Random Sodium 6 Urine Creatinine 221.0 Blood Type Antibody Screen 03/12/18 03/13/18 03/13/18 23:51 03:45 04:00 WBC RBC Hgb Hct MCV MCH MCHC RDW Plt Count MPV Neutrophils % Lymphocytes % Monocytes % Eosinophils % Basophils % PT with INR INR PTT (Actin FS) Anticoagulation Therapy No Result Required. Puncture Site Arterial line ABG pH 7.47 H ABG pCO2 at Pt Temp 46.2 H ABG pO2 at Pt Temp 68.4 ABG HCO3 33.5 H ABG O2 Sat (Measured) 93.7 ABG O2 Content 19.5 ABG Base Excess 8.8 H Fernando Test Positive Carboxyhemoglobin Methemoglobin O2 Delivery Device No Result Required. Oxygen Flow Rate 100% Vent Mode Vent Vent Rate 12 Mechanical Rate No Result Required. PEEP Pressure Support Vent 500 Sodium Cancelled Potassium Cancelled Chloride Cancelled Carbon Dioxide Cancelled Anion Gap Cancelled BUN Cancelled Creatinine Cancelled Creat Clearance w eGFR Random Glucose Cancelled Lactic Acid Calcium Cancelled Phosphorus 4.3 Magnesium 3.6 H Total Bilirubin AST ALT Alkaline Phosphatase Creatine Kinase Creatine Kinase Index CK-MB (CK-2) Troponin I Total Protein Albumin Lipase Urine Color Urine Appearance Urine pH Ur Specific Simpson Urine Protein Urine Glucose (UA) Urine Ketones Urine Blood Urine Nitrite Urine Bilirubin Urine Urobilinogen Ur Leukocyte Esterase Urine WBC (Auto) Urine RBC (Auto) Ur Epithelial Cells Hyaline Casts Urine Mucus Ur Random Sodium Urine Creatinine Blood Type AB POSITIVE Antibody Screen 03/13/18 03/13/18 03/13/18 04:00 04:00 04:00 WBC 7.2 D RBC 4.76 Hgb 14.5 D Hct 43.2 D MCV 90.7 MCH 30.5 MCHC 33.6 RDW 12.9 Plt Count 165 D MPV 8.9 Neutrophils % 83.6 H D Lymphocytes % 11.9 D Monocytes % 4.4 Eosinophils % 0.0 D Basophils % 0.1 PT with INR INR PTT (Actin FS) Anticoagulation Therapy Puncture Site ABG pH ABG pCO2 at Pt Temp ABG pO2 at Pt Temp ABG HCO3 ABG O2 Sat (Measured) ABG O2 Content ABG Base Excess Fernando Test Carboxyhemoglobin Methemoglobin O2 Delivery Device Oxygen Flow Rate Vent Mode Vent Rate Mechanical Rate PEEP Pressure Support Vent Sodium 137 Potassium 3.5 Chloride 93 L Carbon Dioxide 34 H Anion Gap 10 BUN 34 H Creatinine 1.5 H D Creat Clearance w eGFR 45.03 Random Glucose 167 H Lactic Acid 4.5 H* Calcium 8.3 L Phosphorus Magnesium Total Bilirubin 3.7 H AST 47 H ALT 52 Alkaline Phosphatase 52 D Creatine Kinase Creatine Kinase Index CK-MB (CK-2) Troponin I Total Protein 4.5 L D Albumin 2.1 L D Lipase Urine Color Urine Appearance Urine pH Ur Specific Simpson Urine Protein Urine Glucose (UA) Urine Ketones Urine Blood Urine Nitrite Urine Bilirubin Urine Urobilinogen Ur Leukocyte Esterase Urine WBC (Auto) Urine RBC (Auto) Ur Epithelial Cells Hyaline Casts Urine Mucus Ur Random Sodium Urine Creatinine Blood Type Antibody Screen 03/13/18 05:30 WBC RBC Hgb Hct MCV MCH MCHC RDW Plt Count MPV Neutrophils % Lymphocytes % Monocytes % Eosinophils % Basophils % PT with INR INR PTT (Actin FS) Anticoagulation Therapy No Result Required. Puncture Site Arterial line ABG pH 7.48 H ABG pCO2 at Pt Temp 45.9 H ABG pO2 at Pt Temp 90.8 D ABG HCO3 34.0 H ABG O2 Sat (Measured) 97.5 ABG O2 Content 19.4 ABG Base Excess 9.4 H Fernando Test Not applicable Carboxyhemoglobin Methemoglobin O2 Delivery Device Vent Oxygen Flow Rate 100% Vent Mode No Result Required. Vent Rate 12 Mechanical Rate No Result Required. PEEP 7.5 Pressure Support Vent 500 Sodium Potassium Chloride Carbon Dioxide Anion Gap BUN Creatinine Creat Clearance w eGFR Random Glucose Lactic Acid Calcium Phosphorus Magnesium Total Bilirubin AST ALT Alkaline Phosphatase Creatine Kinase Creatine Kinase Index CK-MB (CK-2) Troponin I Total Protein Albumin Lipase Urine Color Urine Appearance Urine pH Ur Specific Simpson Urine Protein Urine Glucose (UA) Urine Ketones Urine Blood Urine Nitrite Urine Bilirubin Urine Urobilinogen Ur Leukocyte Esterase Urine WBC (Auto) Urine RBC (Auto) Ur Epithelial Cells Hyaline Casts Urine Mucus Ur Random Sodium Urine Creatinine Blood Type Antibody Screen Problem List - Problems (1) Aspiration pneumonia of both lower lobes due to gastric secretions Code(s): J69.0 - PNEUMONITIS DUE TO INHALATION OF FOOD AND VOMIT (2) Incarcerated left inguinal hernia Code(s): K40.30 - UNIL INGUINAL HERNIA, W OBST, W/O GANGR, NOT SPCF RECUR (3) SBO (small bowel obstruction) Code(s): K56.609 - UNSP INTESTNL OBST, UNSP TO PARTIAL VERSUS COMPLETE OBST (4) Strangulated inguinal hernia Code(s): K40.30 - UNIL INGUINAL HERNIA, W OBST, W/O GANGR, NOT SPCF RECUR Assessment/Plan Acute Respiratory Failure due to Aspiration Pneumonitis At high risk for ARDS POD #1 Exploratory Laparotomy, 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
--- NOTE | 2018-03-13 12:54 | PN ---
Teaching Attending Note Name of Resident: Mukul White ATTENDING PHYSICIAN STATEMENT I saw and evaluated the patient. I reviewed the resident's note and discussed the case with the resident. I agree with the resident's findings and plan as documented. SUBJECTIVE: unable to obtain hx . OBJECTIVE: Intubated , sedated, comfortable., round equal pupils, reactive to light CV: RRR. Lungs; clear anterirly, decreased breath sounds at bases Abd: absent BS. mid line clean surgical dressing. L inguinal hernia with no skin changes , no extension of content to scrotum. Ext: no edema or erythema ASSESSMENT AND PLAN: 82 y/o gentleman with h/o DJD, GERD, diverticulosis and other medical problems who presented with abd pain and was found to have SBO with bowel ischemia and developed acute resp failure and septic shock. 1- Acute hypoxic resp failure. due to severe sepsis and b/l PNA (? aspiration ) - cont zosyn. - follow blood cx - mechanical ventilation and sedation - follow legionella 2- Septic shock form bowel ischemia and PNA . - cont levophed support , rate increased this am - cont zosyn - follow ID Recs - repat lactic acid - cont IVF 3- SBO and bowel ischemia : unclear etiology. - POD0 s/p explaratory laparotomy and partial small bowel resection. - f/u with surgical recs - L inguinal hernia to be repaired at a later time 4- ANATOLIY: likely prerenal due to shock, can't r/o ATN. - cont IVF - urine lytes for FeNA 5- PX: add PPI start heparin SQ if no objection by Surgeon .
--- NOTE | 2018-03-13 13:00 | MSN ---
Progress Note (SOAP) - Subjective Chief Complaint: Severe Sepsis History of Present Illness: Patient is a 82 year old male with past medical hx of GERD, BPH, degenerative joint disease, diverticulitis, and hemorrhoids that presented to the ER after 1 day of n/v, abdominal pain and myalgias. The patient reports that two day prior to presentation he was weight training when he felt a pain in his left lower quadrant. His symptoms progressed yesterday to include as many as ten boughts of NBNB vomiting and abdominal pain. In the ER the patient was not able to maintain O2 saturation (84% on RA), was tachycardia and was found to have a WBC of 2. Abdominal CT imaging that time showed a left SBO in the RLQ secondary to inguinal hernia and chest CT imaging showed extensive bilateral pulmonary consolidation in the lungs. An NG tube was placed (draining 5L of fluid), bolus of of fluid was given, and patient was given a dose of vanc + zosyn + clinda. Surgery was consulted and patient was taken for emergent exploratory laboratory. Today the patient is post op day 0, sedated and intubate in the ICU. The vent is set to FiO2 of 80% and the patient is receiving 7 mcg/min of lephophed to maintain MAP. - Current Medications Current Medications: Active Medications Chlorhexidine Gluconate (Peridex -) 15 ml MM BID JUDY Last Admin: 03/13/18 09:21 Dose: 15 ml Chlorhexidine Gluconate (Hibiclens For Decolonization -) 1 applic TP HS JUDY Propofol (Diprivan -) 1,000,000 mcg in 100 mls @ 4.736 mls/hr IV TITR JUDY; 10 MCG/KG/MIN PRN Reason: Protocol Last Admin: 03/13/18 11:18 Dose: 45 mcg/kg/min, 21.31 mls/hr Piperacillin Sod/Tazobactam (Sod 2.25 gm/ Dextrose) 50 mls @ 100 mls/hr IVPB Q6H-IV JUDY Stop: 03/13/18 15:29 Last Admin: 03/13/18 09:21 Dose: 100 mls/hr Fentanyl 500 mcg/ Dextrose 100 mls @ 10 mls/hr IVPB TITR JUDY; 50 MCG/HR PRN Reason: Protocol Last Admin: 03/13/18 05:09 Dose: 10 mls/hr Norepinephrine Bitartrate 8, (000 mcg/ Dextrose) 500 mls @ 18.75 mls/hr IV ASDIR JUDY; 5 MCG/MIN PRN Reason: Protocol Last Admin: 03/13/18 05:10 Dose: 5 mcg/min, 18.75 mls/hr Dextrose/Sodium Chloride (D5-Ns -) 1,000 mls @ 150 mls/hr IV ASDIR JUDY Mupirocin (Bactroban Ointment (For Decolonization) -) 1 applic NS BID [facility] Stop: 03/17/18 21:59 Last Admin: 03/13/18 09:20 Dose: 1 applic Ondansetron HCl (Zofran Injection) 4 mg IVPUSH Q6H PRN PRN Reason: NAUSEA Pantoprazole Sodium (Protonix Iv) 40 mg IVPUSH DAILY [facility] Last Admin: 03/13/18 11:03 Dose: 40 mg - Objective Vital Signs: Vital Signs Temperature 97.8 F 03/13/18 10:00 Pulse Rate 78 03/13/18 10:00 Respiratory Rate 13 03/13/18 11:15 Blood Pressure 107/54 03/13/18 10:00 O2 Sat by Pulse Oximetry (%) 96 03/13/18 09:00 Constitutional: Yes: Well Nourished, No Distress, Other (Medically sedated ) Eyes: Yes: Other (eyes closed with no reaction to light o accomadation ) Neck: Yes: Supple, Trachea Midline. No: Lymphadenopathy, Thyromegaly Cardiovascular: Yes: Regular Rate and Rhythm, S1, S2 Respiratory: Yes: Diminished (breath sounds diminshed at the bases ), Mechanically Ventilated Gastrointestinal: Yes: Hypoactive Bowel Sounds, Other (midline incisional scar covered with dressing. Serosanguinous discharge draining through the dressing. No signs of infection noted around the dressing ) Peripheral Pulses WNL: Yes Peripheral Pulses: Left Radial: 2+, Right Radial: 2+, Left Doralis Pedis: 2+, Right Dorsalis Pedis: 2+ Edema: No Wound/Incision: Yes: Other (serosanguinous fluid noted through the dressing ) Neurological: Yes: Unresponsive Labs Lab Results: CBC, BMP 03/13/18 04:00 03/13/18 04:00 Assessment/Plan Assessment/Plan: Patient is an 82 year old male with past medical hx of GERD, BPH, degenerative joint disease, diverticulosis, and hemorrhoids that is post op day 0 after an exploratory laporatomy for SBO due two inguinal hernia, that is currently being treated in the ICU for sever sepsis and possible b/l pneumonia. # Severe Sepsis with respiratory failure - Most likely secondary to b/l lower lobe pneumonia vs SBO from right inguinal henria - improving, WBC 7 - monitored in the ICU - Vital signs WNL, O2 sat of 95% on vent and and MAP >60 - ID Dr. Lopez Consulted - Until further recommendation from ID will continue to treat with Zosyn 2.5gm. May need to consider increased aerobic coverage due bowel pathology - continue norepi for BP support with goal of map >70 (due to primary anastomotic site in the bowel) - Continue sedation with Fentyl and propafol for sedation until patient can maintain BP with out pressers - consider weening off of vent ounce patient is showing signs of being able to protect his own airway - continue LR fluid 150 cc/hr - follow up on blood cultures, negative for strep pneumo and legionella antigen # Possible b/l lower lobe pneumonia - possibly secondary to aspiration given the patients precluding symptoms - will continue empiric antibiotics and await ID consultation - continue sedation and intubation at this time # SBO with ischenic segment - post op day 0 - General surgery Dr. sotelo on the case - b/l inguinal hernias present with right incarcerated hernia causing SBO of terminal ilium - removed ischemic terminal ilium segment and primary anastamosis was created - inguinal hernias were not repaired at this time - continue to follow the recommendations of general surgery # ANATOLIY - improving, creatinine 1.5 - most likely secondary to septic shock causing pre-renal ANATOLIY with ATN being possible but less likely - will continue to trend cr, calculated FeNa less than 1% consistent with pre- renal etiology F/E/N - LR fluid 150 cc/hr - electrolytes WNL - NPO DVT - heparin SQ - PPI DISPO- - monitor in ICU
[2018-03-13] MEDS: HEPARIN NA (PORCINE) 5,000 UNITS/ML 1ML VIAL SQ SCH ×2 (13:18→22:14)
--- NOTE | 2018-03-13 13:31 | PN ---
Physical Exam: SUBJECTIVE: Pt currently intubated and sedated. POD 0-1 of hernia reduction with small bowel resection and primary anastomsis. OBJECTIVE: Vital Signs Period Temp Pulse Resp BP Sys/Ceballos Pulse Ox Last 24 Hr 97.8 F-99.2 F 71-106 13-98 77-142/14-69 84-98 GENERAL: NAD, intubated and sedated. HEENT: NC/AT, pinpoint pupils noted, OG and ETT in place, No JVD noted LUNGS: Rhonchorous breath sounds bibasilar, no wheezes, no crackles, AC mode: TV 500/rate 12/PEEP 7.5 HEART: RRR, S1, S2 without murmur ABDOMEN: Soft, nondistended, hypoactive bowel sounds, no hepatosplenomegaly, no masses. Incision with bandage with minimal let-through. No extension of bowel into L or R hernia sac EXTREMITIES: 2+ DP pulses, warm, no edema. NEUROLOGICAL: Could not assess due to sedation SKIN: Warm, dry, no rashes or lesions noted Laboratory Results - last 24 hr 03/12/18 03/12/18 03/12/18 14:45 14:45 14:45 WBC 17.0 H D RBC 6.09 H D Hgb 18.4 H D Hct 54.6 H D MCV 89.7 MCH 30.2 MCHC 33.7 RDW 12.8 Plt Count 276 D MPV 8.9 Neutrophils % 87.5 H D Lymphocytes % 5.9 L D Monocytes % 6.3 Eosinophils % 0.0 D Basophils % 0.3 PT with INR INR PTT (Actin FS) Anticoagulation Therapy Puncture Site ABG pH ABG pCO2 at Pt Temp ABG pO2 at Pt Temp ABG HCO3 ABG O2 Sat (Measured) ABG O2 Content ABG Base Excess Fernando Test Carboxyhemoglobin Methemoglobin O2 Delivery Device Oxygen Flow Rate Vent Mode Vent Rate Mechanical Rate PEEP Pressure Support Vent Sodium 132 L Potassium 4.1 Chloride 85 L D Carbon Dioxide 35 H D Anion Gap 12 BUN 26 H D Creatinine 1.5 H D Creat Clearance w eGFR 45.03 Random Glucose 191 H D Lactic Acid 3.4 H* Calcium 10.1 Phosphorus Magnesium Total Bilirubin 3.3 H D AST 79 H D ALT 67 D Alkaline Phosphatase 98 D Creatine Kinase 527 H Creatine Kinase Index 1.0 CK-MB (CK-2) 5.556 H Troponin I 0.02 Total Protein 7.5 Albumin 3.5 Lipase 84 Urine Color Urine Appearance Urine pH Ur Specific [place] Urine Protein Urine Glucose (UA) Urine Ketones Urine Blood Urine Nitrite Urine Bilirubin Urine Urobilinogen Ur Leukocyte Esterase Urine WBC (Auto) Urine RBC (Auto) Ur Epithelial Cells Hyaline Casts Urine Mucus Ur Random Sodium Urine Creatinine Blood Type Antibody Screen 03/12/18 03/12/18 03/12/18 15:13 19:26 19:26 WBC 2.0 L D RBC 5.84 H Hgb 17.7 H Hct 52.4 H MCV 89.7 MCH 30.2 MCHC 33.7 RDW 12.8 Plt Count 214 D MPV 8.6 Neutrophils % 65.0 D Lymphocytes % 25.5 D Monocytes % 9.2 Eosinophils % 0.1 D Basophils % 0.2 PT with INR INR PTT (Actin FS) Anticoagulation Therapy No Result Required. Puncture Site Right radial ABG pH 7.53 H ABG pCO2 at Pt Temp 44.2 ABG pO2 at Pt Temp 62.5 L ABG HCO3 36.8 H ABG O2 Sat (Measured) 93.2 ABG O2 Content 23.5 H ABG Base Excess 12.2 H Fernando Test Positive Carboxyhemoglobin 1.8 Methemoglobin 1.2 O2 Delivery Device Non-rebreather Oxygen Flow Rate Yes Vent Mode No Result Required. Vent Rate No Result Required. Mechanical Rate No Result Required. PEEP Pressure Support Vent No Result Required. Sodium 135 L Potassium 3.6 Chloride 88 L Carbon Dioxide 33 H Anion Gap 14 BUN 33 H D Creatinine 1.9 H D Creat Clearance w eGFR 34.28 Random Glucose 160 H Lactic Acid Calcium 9.9 Phosphorus Magnesium Total Bilirubin 3.6 H AST 54 H D ALT 61 Alkaline Phosphatase 76 D Creatine Kinase Creatine Kinase Index CK-MB (CK-2) Troponin I Total Protein 6.0 L Albumin 2.9 L Lipase Urine Color Urine Appearance Urine pH Ur Specific [place] Urine Protein Urine Glucose (UA) Urine Ketones Urine Blood Urine Nitrite Urine Bilirubin Urine Urobilinogen Ur Leukocyte Esterase Urine WBC (Auto) Urine RBC (Auto) Ur Epithelial Cells Hyaline Casts Urine Mucus Ur Random Sodium Urine Creatinine Blood Type Antibody Screen 03/12/18 03/12/18 03/12/18 19:26 20:01 20:01 WBC RBC Hgb Hct MCV MCH MCHC RDW Plt Count MPV Neutrophils % Lymphocytes % Monocytes % Eosinophils % Basophils % PT with INR 13.50 H INR 1.19 H PTT (Actin FS) Anticoagulation Therapy Puncture Site ABG pH ABG pCO2 at Pt Temp ABG pO2 at Pt Temp ABG HCO3 ABG O2 Sat (Measured) ABG O2 Content ABG Base Excess Fernando Test Carboxyhemoglobin Methemoglobin O2 Delivery Device Oxygen Flow Rate Vent Mode Vent Rate Mechanical Rate PEEP Pressure Support Vent Sodium Potassium Chloride Carbon Dioxide Anion Gap BUN Creatinine Creat Clearance w eGFR Random Glucose Lactic Acid 6.6 H* Calcium Phosphorus Magnesium Total Bilirubin AST ALT Alkaline Phosphatase Creatine Kinase Creatine Kinase Index CK-MB (CK-2) Troponin I Total Protein Albumin Lipase Urine Color Urine Appearance Urine pH Ur Specific [place] Urine Protein Urine Glucose (UA) Urine Ketones Urine Blood Urine Nitrite Urine Bilirubin Urine Urobilinogen Ur Leukocyte Esterase Urine WBC (Auto) Urine RBC (Auto) Ur Epithelial Cells Hyaline Casts Urine Mucus Ur Random Sodium Urine Creatinine Blood Type AB POSITIVE Antibody Screen Negative 03/12/18 03/12/18 03/12/18 21:01 22:12 22:12 WBC RBC Hgb Hct MCV MCH MCHC RDW Plt Count MPV Neutrophils % Lymphocytes % Monocytes % Eosinophils % Basophils % PT with INR INR PTT (Actin FS) 27.3 Anticoagulation Therapy Puncture Site ABG pH ABG pCO2 at Pt Temp ABG pO2 at Pt Temp ABG HCO3 ABG O2 Sat (Measured) ABG O2 Content ABG Base Excess Fernando Test Carboxyhemoglobin Methemoglobin O2 Delivery Device Oxygen Flow Rate Vent Mode Vent Rate Mechanical Rate PEEP Pressure Support Vent Sodium Potassium Chloride Carbon Dioxide Anion Gap BUN Creatinine Creat Clearance w eGFR Random Glucose Lactic Acid Calcium Phosphorus Magnesium Total Bilirubin AST ALT Alkaline Phosphatase Creatine Kinase Creatine Kinase Index CK-MB (CK-2) Troponin I Total Protein Albumin Lipase Urine Color Liza Urine Appearance Slcloudy Urine pH 5.0 Ur Specific [place] 1.027 Urine Protein 1+ H Urine Glucose (UA) Negative Urine Ketones Negative Urine Blood 2+ H Urine Nitrite Negative Urine Bilirubin Negative Urine Urobilinogen Negative Ur Leukocyte Esterase Negative Urine WBC (Auto) 2 Urine RBC (Auto) 8 Ur Epithelial Cells Rare Hyaline Casts 9 Urine Mucus Rare Ur Random Sodium 6 Urine Creatinine 221.0 Blood Type Antibody Screen 03/12/18 03/13/18 03/13/18 23:51 03:45 04:00 WBC RBC Hgb Hct MCV MCH MCHC RDW Plt Count MPV Neutrophils % Lymphocytes % Monocytes % Eosinophils % Basophils % PT with INR INR PTT (Actin FS) Anticoagulation Therapy No Result Required. Puncture Site Arterial line ABG pH 7.47 H ABG pCO2 at Pt Temp 46.2 H ABG pO2 at Pt Temp 68.4 ABG HCO3 33.5 H ABG O2 Sat (Measured) 93.7 ABG O2 Content 19.5 ABG Base Excess 8.8 H Fernando Test Positive Carboxyhemoglobin Methemoglobin O2 Delivery Device No Result Required. Oxygen Flow Rate 100% Vent Mode Vent Vent Rate 12 Mechanical Rate No Result Required. PEEP Pressure Support Vent 500 Sodium Cancelled Potassium Cancelled Chloride Cancelled Carbon Dioxide Cancelled Anion Gap Cancelled BUN Cancelled Creatinine Cancelled Creat Clearance w eGFR Random Glucose Cancelled Lactic Acid Calcium Cancelled Phosphorus 4.3 Magnesium 3.6 H Total Bilirubin AST ALT Alkaline Phosphatase Creatine Kinase Creatine Kinase Index CK-MB (CK-2) Troponin I Total Protein Albumin Lipase Urine Color Urine Appearance Urine pH Ur Specific [place] Urine Protein Urine Glucose (UA) Urine Ketones Urine Blood Urine Nitrite Urine Bilirubin Urine Urobilinogen Ur Leukocyte Esterase Urine WBC (Auto) Urine RBC (Auto) Ur Epithelial Cells Hyaline Casts Urine Mucus Ur Random Sodium Urine Creatinine Blood Type AB POSITIVE Antibody Screen 03/13/18 03/13/18 03/13/18 04:00 04:00 04:00 WBC 7.2 D RBC 4.76 Hgb 14.5 D Hct 43.2 D MCV 90.7 MCH 30.5 MCHC 33.6 RDW 12.9 Plt Count 165 D MPV 8.9 Neutrophils % 83.6 H D Lymphocytes % 11.9 D Monocytes % 4.4 Eosinophils % 0.0 D Basophils % 0.1 PT with INR INR PTT (Actin FS) Anticoagulation Therapy Puncture Site ABG pH ABG pCO2 at Pt Temp ABG pO2 at Pt Temp ABG HCO3 ABG O2 Sat (Measured) ABG O2 Content ABG Base Excess Fernando Test Carboxyhemoglobin Methemoglobin O2 Delivery Device Oxygen Flow Rate Vent Mode Vent Rate Mechanical Rate PEEP Pressure Support Vent Sodium 137 Potassium 3.5 Chloride 93 L Carbon Dioxide 34 H Anion Gap 10 BUN 34 H Creatinine 1.5 H D Creat Clearance w eGFR 45.03 Random Glucose 167 H Lactic Acid 4.5 H* Calcium 8.3 L Phosphorus Magnesium Total Bilirubin 3.7 H AST 47 H ALT 52 Alkaline Phosphatase 52 D Creatine Kinase Creatine Kinase Index CK-MB (CK-2) Troponin I Total Protein 4.5 L D Albumin 2.1 L D Lipase Urine Color Urine Appearance Urine pH Ur Specific [place] Urine Protein Urine Glucose (UA) Urine Ketones Urine Blood Urine Nitrite Urine Bilirubin Urine Urobilinogen Ur Leukocyte Esterase Urine WBC (Auto) Urine RBC (Auto) Ur Epithelial Cells Hyaline Casts Urine Mucus Ur Random Sodium Urine Creatinine Blood Type Antibody Screen 03/13/18 05:30 WBC RBC Hgb Hct MCV MCH MCHC RDW Plt Count MPV Neutrophils % Lymphocytes % Monocytes % Eosinophils % Basophils % PT with INR INR PTT (Actin FS) Anticoagulation Therapy No Result Required. Puncture Site Arterial line ABG pH 7.48 H ABG pCO2 at Pt Temp 45.9 H ABG pO2 at Pt Temp 90.8 D ABG HCO3 34.0 H ABG O2 Sat (Measured) 97.5 ABG O2 Content 19.4 ABG Base Excess 9.4 H Fernando Test Not applicable Carboxyhemoglobin Methemoglobin O2 Delivery Device Vent Oxygen Flow Rate 100% Vent Mode No Result Required. Vent Rate 12 Mechanical Rate No Result Required. PEEP 7.5 Pressure Support Vent 500 Sodium Potassium Chloride Carbon Dioxide Anion Gap BUN Creatinine Creat Clearance w eGFR Random Glucose Lactic Acid Calcium Phosphorus Magnesium Total Bilirubin AST ALT Alkaline Phosphatase Creatine Kinase Creatine Kinase Index CK-MB (CK-2) Troponin I Total Protein Albumin Lipase Urine Color Urine Appearance Urine pH Ur Specific [place] Urine Protein Urine Glucose (UA) Urine Ketones Urine Blood Urine Nitrite Urine Bilirubin Urine Urobilinogen Ur Leukocyte Esterase Urine WBC (Auto) Urine RBC (Auto) Ur Epithelial Cells Hyaline Casts Urine Mucus Ur Random Sodium Urine Creatinine Blood Type Antibody Screen Active Medications Generic Name Dose Route Start Last Admin Trade Name Freq PRN Reason Stop Dose Admin Chlorhexidine Gluconate 15 ml 03/13/18 10:00 03/13/18 09:21 Peridex - MM 15 ml BID JUDY Administration Chlorhexidine Gluconate 1 applic 03/13/18 22:00 Hibiclens For Decolonization - TP HS JUDY Heparin Sodium (Porcine) 5,000 unit 03/13/18 14:00 03/13/18 13:18 Heparin - SQ 5,000 unit TID JUDY Administration Propofol 1,000,000 mcg in 100 mls @ 4.736 mls/hr 03/13/18 04:00 03/13/18 11: 18 Diprivan - IV 45 mcg/kg/min TITR JUDY 21.31 mls/hr Protocol Administration 10 MCG/KG/MIN Piperacillin Sod/Tazobactam 50 mls @ 100 mls/hr 03/13/18 09:00 03/13/18 09:21 Sod 2.25 gm/ Dextrose IVPB 03/13/18 15:29 100 mls/hr Q6H-IV JUDY Administration Fentanyl 500 mcg/ Dextrose 100 mls @ 10 mls/hr 03/13/18 05:15 03/13/18 13:03 IVPB 10 mls/hr TITR JUDY Administration Protocol 50 MCG/HR Norepinephrine Bitartrate 8, 500 mls @ 18.75 mls/hr 03/13/18 05:15 03/13/18 05:10 000 mcg/ Dextrose IV 5 mcg/min ASDIR JUDY 18.75 mls/hr Protocol Administration 5 MCG/MIN Dextrose/Sodium Chloride 1,000 mls @ 150 mls/hr 03/13/18 11:45 03/13/18 13:07 D5-Ns - IV 150 mls/hr ASDIR JUDY Administration Mupirocin 1 applic 03/13/18 10:00 03/13/18 09:20 Bactroban Ointment (For Decolonization) - NS 03/17/18 21:59 1 applic BID JUDY Administration Ondansetron HCl 4 mg 03/13/18 04:30 Zofran Injection IVPUSH Q6H PRN NAUSEA Pantoprazole Sodium 40 mg 03/13/18 10:00 03/13/18 11:03 Protonix Iv IVPUSH 40 mg DAILY JUDY Administration ASSESSMENT/PLAN: 1) Septic shock 2/2 to bowel ischemia in addition to PNA --Increased levophed to 7mcg/min (from 5mcg); keep MAP goal 65-70 due to anastomosis --PNA suspected to be aspiration from obstruction --Continue Zosyn 2.25gm q6h --ID on board --F/u blood cultures --Repeat lactic acid --IVF - D5LR due to npo and post surgical 2) Acute hypoxic respiratory failure --Likely PNA etiology --Continue AC mode of vent --Not currently a candidate for wean trials --Continue sedation with propofol 3) ANATOLIY --Prerenal in etiology --FENa 0.0% --Continue IVF FEN: Fluids: D5LR @150cc/hr Electrolyte abnormalities: None today Nutrition: NPO; I&S currently PPX: DVT - Heparin Sq GI - Protonix 40mg IVP daily Dispo: Continue ICU monitoring Case discussed with Dr. Mati White, DO - IM PGY-1 Visit type - Emergency Visit Emergency Visit: No - New Patient This patient is new to me today: Yes Date on this admission: 03/13/18 - Critical Care Critical Care patient: Yes Total Critical Care Time (in minutes): 40 Critical Care Statement: The care of this patient involved high complexity decision making to prevent further life threatening deterioration of the patient 's condition and/or to evaluate & treat vital organ system(s) failure or risk of failure.
--- NOTE | 2018-03-13 14:31 | PN ---
Physical Exam: SUBJECTIVE: Patient seen and examined. Intubated and sedated. Levophed 7mcgs, Propofol 45mcgs, Fentanyl 50mcg POD0 s/p explaratory laparotomy and partial small bowel resection. OBJECTIVE: Vital Signs Period Temp Pulse Resp BP Sys/Ceballos Pulse Ox Last 24 Hr 97.8 F-99.2 F 71-102 13-98 77-119/14-69 91-98 GENERAL: intubated, sedated EYES: PERRL,sclera anicteric, conjunctiva clear ENT: oropharynx clear without exudates, moist mucous membranes. LUNGS: mechanically vented, diminished bs bases HEART: Regular rate and rhythm ABDOMEN: midline incisional scar covered with dressing, hypoactive bowel sounds. EXTREMITIES: 2+ pulses, warm, well-perfused, no edema. NEUROLOGICAL: unable to assess cranial nerves Laboratory Results - last 24 hr 03/12/18 03/12/18 03/12/18 14:45 14:45 14:45 WBC 17.0 H D RBC 6.09 H D Hgb 18.4 H D Hct 54.6 H D MCV 89.7 MCH 30.2 MCHC 33.7 RDW 12.8 Plt Count 276 D MPV 8.9 Neutrophils % 87.5 H D Lymphocytes % 5.9 L D Monocytes % 6.3 Eosinophils % 0.0 D Basophils % 0.3 PT with INR INR PTT (Actin FS) Anticoagulation Therapy Puncture Site ABG pH ABG pCO2 at Pt Temp ABG pO2 at Pt Temp ABG HCO3 ABG O2 Sat (Measured) ABG O2 Content ABG Base Excess Fernando Test Carboxyhemoglobin Methemoglobin O2 Delivery Device Oxygen Flow Rate Vent Mode Vent Rate Mechanical Rate PEEP Pressure Support Vent Sodium 132 L Potassium 4.1 Chloride 85 L D Carbon Dioxide 35 H D Anion Gap 12 BUN 26 H D Creatinine 1.5 H D Creat Clearance w eGFR 45.03 Random Glucose 191 H D Lactic Acid 3.4 H* Calcium 10.1 Phosphorus Magnesium Total Bilirubin 3.3 H D AST 79 H D ALT 67 D Alkaline Phosphatase 98 D Creatine Kinase 527 H Creatine Kinase Index 1.0 CK-MB (CK-2) 5.556 H Troponin I 0.02 Total Protein 7.5 Albumin 3.5 Lipase 84 Urine Color Urine Appearance Urine pH Ur Specific [place] Urine Protein Urine Glucose (UA) Urine Ketones Urine Blood Urine Nitrite Urine Bilirubin Urine Urobilinogen Ur Leukocyte Esterase Urine WBC (Auto) Urine RBC (Auto) Ur Epithelial Cells Hyaline Casts Urine Mucus Ur Random Sodium Urine Creatinine Blood Type Antibody Screen 03/12/18 03/12/18 03/12/18 15:13 19:26 19:26 WBC 2.0 L D RBC 5.84 H Hgb 17.7 H Hct 52.4 H MCV 89.7 MCH 30.2 MCHC 33.7 RDW 12.8 Plt Count 214 D MPV 8.6 Neutrophils % 65.0 D Lymphocytes % 25.5 D Monocytes % 9.2 Eosinophils % 0.1 D Basophils % 0.2 PT with INR INR PTT (Actin FS) Anticoagulation Therapy No Result Required. Puncture Site Right radial ABG pH 7.53 H ABG pCO2 at Pt Temp 44.2 ABG pO2 at Pt Temp 62.5 L ABG HCO3 36.8 H ABG O2 Sat (Measured) 93.2 ABG O2 Content 23.5 H ABG Base Excess 12.2 H Fernando Test Positive Carboxyhemoglobin 1.8 Methemoglobin 1.2 O2 Delivery Device Non-rebreather Oxygen Flow Rate Yes Vent Mode No Result Required. Vent Rate No Result Required. Mechanical Rate No Result Required. PEEP Pressure Support Vent No Result Required. Sodium 135 L Potassium 3.6 Chloride 88 L Carbon Dioxide 33 H Anion Gap 14 BUN 33 H D Creatinine 1.9 H D Creat Clearance w eGFR 34.28 Random Glucose 160 H Lactic Acid Calcium 9.9 Phosphorus Magnesium Total Bilirubin 3.6 H AST 54 H D ALT 61 Alkaline Phosphatase 76 D Creatine Kinase Creatine Kinase Index CK-MB (CK-2) Troponin I Total Protein 6.0 L Albumin 2.9 L Lipase Urine Color Urine Appearance Urine pH Ur Specific [place] Urine Protein Urine Glucose (UA) Urine Ketones Urine Blood Urine Nitrite Urine Bilirubin Urine Urobilinogen Ur Leukocyte Esterase Urine WBC (Auto) Urine RBC (Auto) Ur Epithelial Cells Hyaline Casts Urine Mucus Ur Random Sodium Urine Creatinine Blood Type Antibody Screen 03/12/18 03/12/18 03/12/18 19:26 20:01 20:01 WBC RBC Hgb Hct MCV MCH MCHC RDW Plt Count MPV Neutrophils % Lymphocytes % Monocytes % Eosinophils % Basophils % PT with INR 13.50 H INR 1.19 H PTT (Actin FS) Anticoagulation Therapy Puncture Site ABG pH ABG pCO2 at Pt Temp ABG pO2 at Pt Temp ABG HCO3 ABG O2 Sat (Measured) ABG O2 Content ABG Base Excess Fernando Test Carboxyhemoglobin Methemoglobin O2 Delivery Device Oxygen Flow Rate Vent Mode Vent Rate Mechanical Rate PEEP Pressure Support Vent Sodium Potassium Chloride Carbon Dioxide Anion Gap BUN Creatinine Creat Clearance w eGFR Random Glucose Lactic Acid 6.6 H* Calcium Phosphorus Magnesium Total Bilirubin AST ALT Alkaline Phosphatase Creatine Kinase Creatine Kinase Index CK-MB (CK-2) Troponin I Total Protein Albumin Lipase Urine Color Urine Appearance Urine pH Ur Specific [place] Urine Protein Urine Glucose (UA) Urine Ketones Urine Blood Urine Nitrite Urine Bilirubin Urine Urobilinogen Ur Leukocyte Esterase Urine WBC (Auto) Urine RBC (Auto) Ur Epithelial Cells Hyaline Casts Urine Mucus Ur Random Sodium Urine Creatinine Blood Type AB POSITIVE Antibody Screen Negative 03/12/18 03/12/18 03/12/18 21:01 22:12 22:12 WBC RBC Hgb Hct MCV MCH MCHC RDW Plt Count MPV Neutrophils % Lymphocytes % Monocytes % Eosinophils % Basophils % PT with INR INR PTT (Actin FS) 27.3 Anticoagulation Therapy Puncture Site ABG pH ABG pCO2 at Pt Temp ABG pO2 at Pt Temp ABG HCO3 ABG O2 Sat (Measured) ABG O2 Content ABG Base Excess Fernando Test Carboxyhemoglobin Methemoglobin O2 Delivery Device Oxygen Flow Rate Vent Mode Vent Rate Mechanical Rate PEEP Pressure Support Vent Sodium Potassium Chloride Carbon Dioxide Anion Gap BUN Creatinine Creat Clearance w eGFR Random Glucose Lactic Acid Calcium Phosphorus Magnesium Total Bilirubin AST ALT Alkaline Phosphatase Creatine Kinase Creatine Kinase Index CK-MB (CK-2) Troponin I Total Protein Albumin Lipase Urine Color Liza Urine Appearance Slcloudy Urine pH 5.0 Ur Specific [place] 1.027 Urine Protein 1+ H Urine Glucose (UA) Negative Urine Ketones Negative Urine Blood 2+ H Urine Nitrite Negative Urine Bilirubin Negative Urine Urobilinogen Negative Ur Leukocyte Esterase Negative Urine WBC (Auto) 2 Urine RBC (Auto) 8 Ur Epithelial Cells Rare Hyaline Casts 9 Urine Mucus Rare Ur Random Sodium 6 Urine Creatinine 221.0 Blood Type Antibody Screen 03/12/18 03/13/18 03/13/18 23:51 03:45 04:00 WBC RBC Hgb Hct MCV MCH MCHC RDW Plt Count MPV Neutrophils % Lymphocytes % Monocytes % Eosinophils % Basophils % PT with INR INR PTT (Actin FS) Anticoagulation Therapy No Result Required. Puncture Site Arterial line ABG pH 7.47 H ABG pCO2 at Pt Temp 46.2 H ABG pO2 at Pt Temp 68.4 ABG HCO3 33.5 H ABG O2 Sat (Measured) 93.7 ABG O2 Content 19.5 ABG Base Excess 8.8 H Fernando Test Positive Carboxyhemoglobin Methemoglobin O2 Delivery Device No Result Required. Oxygen Flow Rate 100% Vent Mode Vent Vent Rate 12 Mechanical Rate No Result Required. PEEP Pressure Support Vent 500 Sodium Cancelled Potassium Cancelled Chloride Cancelled Carbon Dioxide Cancelled Anion Gap Cancelled BUN Cancelled Creatinine Cancelled Creat Clearance w eGFR Random Glucose Cancelled Lactic Acid Calcium Cancelled Phosphorus 4.3 Magnesium 3.6 H Total Bilirubin AST ALT Alkaline Phosphatase Creatine Kinase Creatine Kinase Index CK-MB (CK-2) Troponin I Total Protein Albumin Lipase Urine Color Urine Appearance Urine pH Ur Specific [place] Urine Protein Urine Glucose (UA) Urine Ketones Urine Blood Urine Nitrite Urine Bilirubin Urine Urobilinogen Ur Leukocyte Esterase Urine WBC (Auto) Urine RBC (Auto) Ur Epithelial Cells Hyaline Casts Urine Mucus Ur Random Sodium Urine Creatinine Blood Type AB POSITIVE Antibody Screen 03/13/18 03/13/18 03/13/18 04:00 04:00 04:00 WBC 7.2 D RBC 4.76 Hgb 14.5 D Hct 43.2 D MCV 90.7 MCH 30.5 MCHC 33.6 RDW 12.9 Plt Count 165 D MPV 8.9 Neutrophils % 83.6 H D Lymphocytes % 11.9 D Monocytes % 4.4 Eosinophils % 0.0 D Basophils % 0.1 PT with INR INR PTT (Actin FS) Anticoagulation Therapy Puncture Site ABG pH ABG pCO2 at Pt Temp ABG pO2 at Pt Temp ABG HCO3 ABG O2 Sat (Measured) ABG O2 Content ABG Base Excess Fernando Test Carboxyhemoglobin Methemoglobin O2 Delivery Device Oxygen Flow Rate Vent Mode Vent Rate Mechanical Rate PEEP Pressure Support Vent Sodium 137 Potassium 3.5 Chloride 93 L Carbon Dioxide 34 H Anion Gap 10 BUN 34 H Creatinine 1.5 H D Creat Clearance w eGFR 45.03 Random Glucose 167 H Lactic Acid 4.5 H* Calcium 8.3 L Phosphorus Magnesium Total Bilirubin 3.7 H AST 47 H ALT 52 Alkaline Phosphatase 52 D Creatine Kinase Creatine Kinase Index CK-MB (CK-2) Troponin I Total Protein 4.5 L D Albumin 2.1 L D Lipase Urine Color Urine Appearance Urine pH Ur Specific [place] Urine Protein Urine Glucose (UA) Urine Ketones Urine Blood Urine Nitrite Urine Bilirubin Urine Urobilinogen Ur Leukocyte Esterase Urine WBC (Auto) Urine RBC (Auto) Ur Epithelial Cells Hyaline Casts Urine Mucus Ur Random Sodium Urine Creatinine Blood Type Antibody Screen 03/13/18 05:30 WBC RBC Hgb Hct MCV MCH MCHC RDW Plt Count MPV Neutrophils % Lymphocytes % Monocytes % Eosinophils % Basophils % PT with INR INR PTT (Actin FS) Anticoagulation Therapy No Result Required. Puncture Site Arterial line ABG pH 7.48 H ABG pCO2 at Pt Temp 45.9 H ABG pO2 at Pt Temp 90.8 D ABG HCO3 34.0 H ABG O2 Sat (Measured) 97.5 ABG O2 Content 19.4 ABG Base Excess 9.4 H Fernando Test Not applicable Carboxyhemoglobin Methemoglobin O2 Delivery Device Vent Oxygen Flow Rate 100% Vent Mode No Result Required. Vent Rate 12 Mechanical Rate No Result Required. PEEP 7.5 Pressure Support Vent 500 Sodium Potassium Chloride Carbon Dioxide Anion Gap BUN Creatinine Creat Clearance w eGFR Random Glucose Lactic Acid Calcium Phosphorus Magnesium Total Bilirubin AST ALT Alkaline Phosphatase Creatine Kinase Creatine Kinase Index CK-MB (CK-2) Troponin I Total Protein Albumin Lipase Urine Color Urine Appearance Urine pH Ur Specific [place] Urine Protein Urine Glucose (UA) Urine Ketones Urine Blood Urine Nitrite Urine Bilirubin Urine Urobilinogen Ur Leukocyte Esterase Urine WBC (Auto) Urine RBC (Auto) Ur Epithelial Cells Hyaline Casts Urine Mucus Ur Random Sodium Urine Creatinine Blood Type Antibody Screen Active Medications Generic Name Dose Route Start Last Admin Trade Name Freq PRN Reason Stop Dose Admin Chlorhexidine Gluconate 15 ml 03/13/18 10:00 03/13/18 09:21 Peridex - MM 15 ml BID JUDY Administration Chlorhexidine Gluconate 1 applic 03/13/18 22:00 Hibiclens For Decolonization - TP HS JUDY Heparin Sodium (Porcine) 5,000 unit 03/13/18 14:00 03/13/18 13:18 Heparin - SQ 5,000 unit TID JUDY Administration Propofol 1,000,000 mcg in 100 mls @ 4.736 mls/hr 03/13/18 04:00 03/13/18 11: 18 Diprivan - IV 45 mcg/kg/min TITR JUDY 21.31 mls/hr Protocol Administration 10 MCG/KG/MIN Piperacillin Sod/Tazobactam 50 mls @ 100 mls/hr 03/13/18 09:00 03/13/18 09:21 Sod 2.25 gm/ Dextrose IVPB 03/13/18 15:29 100 mls/hr Q6H-IV JUDY Administration Fentanyl 500 mcg/ Dextrose 100 mls @ 10 mls/hr 03/13/18 05:15 03/13/18 13:03 IVPB 10 mls/hr TITR JUDY Administration Protocol 50 MCG/HR Norepinephrine Bitartrate 8, 500 mls @ 18.75 mls/hr 03/13/18 05:15 03/13/18 05:10 000 mcg/ Dextrose IV 5 mcg/min ASDIR JUDY 18.75 mls/hr Protocol Administration 5 MCG/MIN Dextrose/Sodium Chloride 1,000 mls @ 150 mls/hr 03/13/18 11:45 03/13/18 13:07 D5-Ns - IV 150 mls/hr ASDIR JUDY Administration Mupirocin 1 applic 03/13/18 10:00 03/13/18 09:20 Bactroban Ointment (For Decolonization) - NS 03/17/18 21:59 1 applic BID JUDY Administration Ondansetron HCl 4 mg 03/13/18 04:30 Zofran Injection IVPUSH Q6H PRN NAUSEA Pantoprazole Sodium 40 mg 03/13/18 10:00 03/13/18 11:03 Protonix Iv IVPUSH 40 mg DAILY JUDY Administration ASSESSMENT/PLAN: 82 year old male with past medical hx of GERD, BPH, degenerative joint disease, presented after an exploratory laporatomy for SBO due to incarcerated inguinal hernia, and is currently being treated in the ICU for sever sepsis and possible b/l pneumonia. #Neuro -sedated for vent synchrony -Propofol, Fentanyl -wean off sedation #Pulm -Acute hypoxic respiratory failure -likely secondary to severe sepsis and aspiration Pneumonitis -FU cultures -ID consulted: Dr. Galvan -IV abx Day 2: Zosyn -Intubated #CV -Septic shock from bowel ischemia and PNA -A-line in place, on pressors: Levophed 7mcg -wean off pressors -FU ID reccs -IV abx -repeat LA -IV fluids #GI -SBO and bowel ischemia -post op day 0 exploratory laporotomy -sx on board -fu sx reccs -L Inguinal hernia to be addressed at a later time once patient is stable. -IV fluids # -ANATOLIY -IV fluids -urine lytes #FEN -IV Fluids d5-LR @125 -replete as needed -NPO PPx: Hep SQ Visit type - Emergency Visit Emergency Visit: Yes ED Registration Date: 03/12/18 Care time: The patient presented to the Emergency Department on the above date and was hospitalized for further evaluation of their emergent condition. - New Patient This patient is new to me today: Yes Date on this admission: 03/13/18 - Critical Care Critical Care patient: Yes Total Critical Care Time (in minutes): 40 Critical Care Statement: The care of this patient involved high complexity decision making to prevent further life threatening deterioration of the patient 's condition and/or to evaluate & treat vital organ system(s) failure or risk of failure.
--- NOTE | 2018-03-13 16:33 | CON.ID ---
Consult Consult Specialty:: infectious diseases Referred by:: Reason for Consultation:: post op - History of Present Illness Chief Complaint: incarcerated hernia History of Present Illness: 82 yo male PMH BPH, degenerative disc disease , diverticulosis, hemorrhoids who was admitted with abd pain and vomiting He reports that he was weight training yesterday and developed some left groin pain. He awoke this morning with hoarseness and significant abdominal distension. patient was worked up and found to have sbo patient was seen by surgery and taken to the operating room and patient underwent surgery and currently is intubated and sedated. patient on abx - History Source History Provided By: Medical Record Limitations to Obtaining History: Clinical Condition - Past Medical History Renal/: Yes: BPH Musculoskeletal: Yes: Osteoarthritis - Past Surgical History Past Surgical History: Yes: Hernia Repair (umbilcal?) - Alcohol/Substance Use Hx Alcohol Use: No History of Substance Use: reports: None - Smoking History Smoking history: Never smoked Have you smoked in the past 12 months: No - Social History Usual Living Arrangement: With Spouse (49yrs) Occupation: retired [employer] History of Recent Travel: No Home Medications - Allergies Allergies/Adverse Reactions: Allergies Allergy/AdvReac Type Severity Reaction Status Date / Time Fish Containing Products Allergy Verified 03/12/18 13:39 - Home Medications Home Medications: Ambulatory Orders Finasteride 5 mg PO DAILY 03/12/18 Omeprazole 20 mg PO DAILY 03/12/18 Tamsulosin HCl 0.4 mg PO DAILY 03/12/18 Review of Systems Unable to obtain ROS, reason: unable intubated Physical Exam Vital Signs: Vital Signs Temperature 98 F 03/13/18 14:00 Pulse Rate 66 03/13/18 16:00 Respiratory Rate 12 03/13/18 16:03 Blood Pressure 99/53 03/13/18 16:00 O2 Sat by Pulse Oximetry (%) 96 03/13/18 09:40 Constitutional: Yes: Calm Cardiovascular: Yes: Regular Rate and Rhythm Respiratory: Yes: Intubated, Mechanically Ventilated Renal/: Yes: Scott Present Musculoskeletal: Yes: WNL Extremities: Yes: WNL Wound/Incision: Yes: Dressing Dry and Intact Neurological: Yes: Other Labs: CBC, BMP 03/13/18 04:00 03/13/18 04:00 Imaging - Results Chest X-ray: Report Reviewed, Image Reviewed Cat Scan: Report Reviewed, Image Reviewed Assessment/Plan Problem List - Problems (1) Strangulated inguinal hernia Pulmonary evaluation - weaning today? GI Evaluation - Tbili 3.5, 3.6 BP goal MAP 65-70, has a stapled small bowel anastomosis avoid lwo flow states will follow Code(s): K40.30 - UNIL INGUINAL HERNIA, W OBST, W/O GANGR, NOT SPCF RECUR (2) Incarcerated left inguinal hernia Code(s): K40.30 - UNIL INGUINAL HERNIA, W OBST, W/O GANGR, NOT SPCF RECUR (3) BPH (benign prostatic hyperplasia) Code(s): N40.0 - BENIGN PROSTATIC HYPERPLASIA WITHOUT LOWER URINRY TRACT SYMP Qualifiers: Lower urinary tract symptom presence: symptoms present Lower urinary tract symptom detail: urinary frequency Qualified Code(s): N40.1 - Benign prostatic hyperplasia with lower urinary tract symptoms; R35.0 - Frequency of micturition ; R35.0 - Frequency of micturition (4) DDD (degenerative disc disease), cervical Code(s): M50.30 - OTHER CERVICAL DISC DEGENERATION, UNSP CERVICAL REGION (5) SBO (small bowel obstruction) Code(s): K56.609 - UNSP INTESTNL OBST, UNSP TO PARTIAL VERSUS COMPLETE OBST (6) Aspiration pneumonia of both lower lobes due to gastric secretions Code(s): J69.0 - PNEUMONITIS DUE TO INHALATION OF FOOD AND VOMIT plan continue close monitoring resp support vent support wean as tolerated continue abx rest as per icu await for final cx report cc time 40 min
[2018-03-13] MEDS ORDERED: PIPERACILLIN/TAZOBACTAM 3.375 GM VIAL IVPB ONE (17:23)
[2018-03-13] MEDS: PIPERACILLIN/TAZOB 3.375 GM 3.375 GM in DEXTROSE 5%-WATER - 50 ML IVPB SCH (18:10)
[2018-03-13] MEDS: DEXTROSE 5%-LACTATED RINGERS 1,000 ML IV SCH (19:00)
[2018-03-13] MEDS ORDERED: CHLORHEXIDINE GLUCONATE 4% CLEANSER FOR DECOLONIZATION TP SCH (22:00)
[2018-03-13] MEDS: CHLORHEXIDINE GLUCONATE 4% CLEANSER FOR DECOLONIZATION TP SCH (22:16)
[2018-03-14] MEDS ORDERED: fentaNYL CITRATE 250 MCG/5 ML VIAL ONE ×2 (01:59→13:58)
[2018-03-14] MEDS ORDERED: DEXTROSE 5%-WATER - 50 ML IVPB ONE ×4 (02:00→18:02)
[2018-03-14] MEDS ORDERED: PIPERACILLIN/TAZOBACTAM 3.375 GM VIAL IVPB ONE ×4 (02:00→18:02)
[2018-03-14] MEDS: PIPERACILLIN/TAZOB 3.375 GM 3.375 GM in DEXTROSE 5%-WATER - 50 ML IVPB SCH ×3 (02:12→18:03)
[2018-03-14] MEDS: FENTANYL INJECTION 500 MCG in DEXTROSE 5%-WATER - 90 ML IVPB SCH ×2 (02:13→05:17)
[2018-03-14] MEDS: PROPOFOL 1,000,000 MCG/100 ML VIAL IV SCH ×2 (05:16→19:00)
[2018-03-14] MEDS: NOREPINEPHRINE BITARTRATE 8,000 MCG in DEXTROSE 5%-WATER - 492 ML IV SCH (05:17)
[2018-03-14] MEDS: HEPARIN NA (PORCINE) 5,000 UNITS/ML 1ML VIAL SQ SCH ×3 (05:47→21:25)
[2018-03-14 06:04] LABS: HEMATOCRIT 40.2 % (35.4-49); HEMOGLOBIN 13.7 GM/dL (11.7-16.9); MCH 31.2 pg (25.7-33.7); MCHC 34.1 g/dl (32.0-35.9); MEAN CELL VOLUME 91.5 fl (80-96); PLATELET COUNT 172 K/MM3 (134-434); RDW 13.1 % (11.9-15.9)
[2018-03-14 06:35] LABS: CALCIUM 7.8 mg/dL (8.5-10.1); CHLORIDE 98 mmol/L (98-107); POTASSIUM 3.6 mmol/L (3.5-5.1); SODIUM 138 mmol/L (136-145)
[2018-03-14 06:40] LABS: ALK PHOS 52 U/L (45-117); ANION GAP 4 (8-16); BILIRUBIN,TOTAL 1.8 mg/dL (0.2-1.0); BLOOD UREA NITROGEN 22 mg/dL (7-18); CO2 36 mmol/L (21-32); CREATININE 1.1 mg/dL (0.7-1.3); GLUCOSE,RANDOM 190 mg/dL (74-106); MAGNESIUM 2.8 mg/dL (1.8-2.4); PHOSPHOROUS 2.2 mg/dL (2.5-4.9); SGOT/AST 31 U/L (15-37); SGPT/ALT 40 U/L (12-78); TOT PROT 4.8 g/dl (6.4-8.2)
--- NOTE | 2018-03-14 08:16 | PN ---
Teaching Attending Note Name of Resident: Norris Lee ATTENDING PHYSICIAN STATEMENT I saw and evaluated the patient. I reviewed the resident's note and discussed the case with the resident. I agree with the resident's findings and plan as documented. SUBJECTIVE: No events over night. unable to obtain hx OBJECTIVE: Intubated , sedated, comfortable., round equal pupils, minimally reactive to light CV: RRR. Lungs; clear anteriorly, decreased breath sounds at bases Abd: absent BS. mid line clean surgical dressing. L inguinal hernia with no skin changes. no extension of content to scrotum. Ext: no edema or erythema ASSESSMENT AND PLAN: 82 y/o gentleman with h/o DJD, GERD, diverticulosis and other medical problems who presented with abd pain and was found to have SBO with bowel ischemia and developed acute resp failure and septic shock. 1- Acute hypoxic resp failure. due to severe sepsis and b/l PNA (? aspiration ) - cont zosyn. - no growth to date on blood and sputum cx, neg legionella and pneumococcal Ag . - mechanical ventilation and sedation ( still requiring 80% FIO2 and 7.5 PEEP) 2- Septic shock form bowel ischemia and PNA . - cont levophed support - cont zosyn -follow lactic 2.4 this am - cont IVF , D5-LR @ 125 cc/hr 3- SBO and bowel ischemia : unclear etiology. - POD 1 s/p exploratory laparotomy and partial small bowel resection. - L inguinal hernia to be repaired at a later time 4- ANATOLIY: likely prerenal due to shock. improved - cont IVF - replete Phos 5- PX: PPI and SQ heparin
[2018-03-14] MEDS ORDERED: POTASSIUM PHOSPHATE 30 MM in SODIUM CHLORIDE 250 ML IVPB ONE (08:30)
[2018-03-14] MEDS: CHLORHEXIDINE GLUCONATE 0.12% 15ML CUP MM SCH ×2 (09:03→21:25)
[2018-03-14] MEDS: PANTOPRAZOLE SODIUM 40 MG VIAL IVPUSH SCH (09:03)
--- NOTE | 2018-03-14 09:24 | PN ---
Physical Exam: SUBJECTIVE: Patient seen and examined at bedside. No events overnight Remains intubated and sedated OBJECTIVE: Vital Signs Period Temp Pulse Resp BP Sys/Ceballos Pulse Ox Last 24 Hr 97.8 F-98.6 F 61-78 12-16 98-149/53-73 96-99 GENERAL: Intubated and sedated EYES: pupils reactive to light NECK: Trachea midline LUNGS: Bronchial breath sounds transmitted from mechanical ventilation HEART: Regular rate and rhythm, S1, S2 without murmur ABDOMEN: Soft, incision C/D/I. no erythema or fluctuance EXTREMITIES: warm, well-perfused, 1+ DP bilaterally, no edema. Laboratory Results - last 24 hr 03/13/18 03/13/18 03/13/18 04:00 13:26 19:30 WBC RBC Hgb Hct MCV MCH MCHC RDW Plt Count MPV Sodium Cancelled Potassium Cancelled Chloride Cancelled Carbon Dioxide Cancelled Anion Gap Cancelled BUN Cancelled Creatinine Cancelled Creat Clearance w eGFR Random Glucose Cancelled Lactic Acid 2.2 H* Calcium Cancelled Phosphorus 4.3 Magnesium 3.6 H Total Bilirubin Direct Bilirubin 0.5 H AST ALT Alkaline Phosphatase Total Protein Albumin 03/13/18 03/14/18 03/14/18 19:30 05:50 05:50 WBC 12.0 H D RBC 4.40 Hgb 13.7 Hct 40.2 MCV 91.5 MCH 31.2 MCHC 34.1 RDW 13.1 Plt Count 172 MPV 9.0 Sodium 138 Potassium 3.6 Chloride 98 Carbon Dioxide 36 H Anion Gap 4 L BUN 22 H D Creatinine 1.1 D Creat Clearance w eGFR > 60 Random Glucose 190 H Lactic Acid 2.6 H* Calcium 7.8 L Phosphorus 2.2 L D Magnesium 2.8 H D Total Bilirubin 1.8 H D Direct Bilirubin AST 31 D ALT 40 D Alkaline Phosphatase 52 Total Protein 4.8 L Albumin 2.0 L 03/14/18 05:50 WBC RBC Hgb Hct MCV MCH MCHC RDW Plt Count MPV Sodium Potassium Chloride Carbon Dioxide Anion Gap BUN Creatinine Creat Clearance w eGFR Random Glucose Lactic Acid 2.4 H* Calcium Phosphorus Magnesium Total Bilirubin Direct Bilirubin AST ALT Alkaline Phosphatase Total Protein Albumin Active Medications Generic Name Dose Route Start Last Admin Trade Name Freq PRN Reason Stop Dose Admin Chlorhexidine Gluconate 15 ml 03/13/18 10:00 03/14/18 09:03 Peridex - MM 15 ml BID JUDY Administration Chlorhexidine Gluconate 1 applic 03/13/18 22:00 03/13/18 22:16 Hibiclens For Decolonization - TP 1 applic HS JUDY Administration Heparin Sodium (Porcine) 5,000 unit 03/13/18 14:00 03/14/18 05:47 Heparin - SQ 5,000 unit TID JUDY Administration Propofol 1,000,000 mcg in 100 mls @ 4.736 mls/hr 03/13/18 04:00 03/14/18 05: 16 Diprivan - IV Not Given TITR JUDY Protocol 10 MCG/KG/MIN Fentanyl 500 mcg/ Dextrose 100 mls @ 10 mls/hr 03/13/18 05:15 03/14/18 05:17 IVPB Not Given TITR JUDY Protocol 50 MCG/HR Norepinephrine Bitartrate 8, 500 mls @ 18.75 mls/hr 03/13/18 05:15 03/14/18 05:17 000 mcg/ Dextrose IV Not Given ASDIR JUDY Protocol 5 MCG/MIN Dextrose/Lactated Ringer's 1,000 mls @ 125 mls/hr 03/13/18 14:30 03/13/18 19: 00 D5-Lr - IV 125 mls/hr ASDIR JUDY Administration Piperacillin Sod/Tazobactam 50 mls @ 100 mls/hr 03/13/18 18:00 03/14/18 09:04 Sod 3.375 gm/ Dextrose IVPB 100 mls/hr Q8H-IV JUDY Administration Protocol Potassium Phosphate 30 mm/ 260 mls @ 43.333 mls/hr 03/14/18 08:30 Sodium Chloride IVPB 03/14/18 14:29 ONCE ONE Mupirocin 1 applic 03/13/18 10:00 03/13/18 22:16 Bactroban Ointment (For Decolonization) - NS 03/17/18 21:59 1 applic BID JUDY Administration Ondansetron HCl 4 mg 03/13/18 04:30 Zofran Injection IVPUSH Q6H PRN NAUSEA Pantoprazole Sodium 40 mg 03/13/18 10:00 03/14/18 09:03 Protonix Iv IVPUSH 40 mg DAILY JUDY Administration ASSESSMENT/PLAN: 82 y/o gentleman with multiple medical problems presents to the hospital with SBO and bowel ischemia s/p ex-lap small bowel resection. Septic shock: secondary to a combination of bowel ischemia and pneumonia POD#1 s /p ex-lap small bowel resection continue Zosyn day 3 f/u Cx- no growth to date f/u surgery service continue levophed currently at 10mcg-wean as tolerated continue ventilatory support still on high ventilatory settings continue IVF trend lactic acid strict I/Os f/u Echo Pneumonia: See above plan ANATOLIY:secondary to hypoperfusion from shock state improved continue IVF treat sepsis BPH: hold flomax and finasteride for now FEN: D5LR @ 125ml/hr replete potassium and phosphorus-hypokalemia and hypophosphatemia NPO PPx: HSQ/SCDs Protonix PT when able to participate Case discussed with attending Dr. Thorne Visit type - Emergency Visit Emergency Visit: Yes ED Registration Date: 03/12/18 Care time: The patient presented to the Emergency Department on the above date and was hospitalized for further evaluation of their emergent condition. - New Patient This patient is new to me today: Yes Date on this admission: 03/14/18 - Critical Care Critical Care patient: Yes Total Critical Care Time (in minutes): 35 Critical Care Statement: The care of this patient involved high complexity decision making to prevent further life threatening deterioration of the patient 's condition and/or to evaluate & treat vital organ system(s) failure or risk of failure.
[2018-03-14] MEDS: MUPIROCIN 2% TOPICAL OINTMENT FOR DECOLONIZATION NS SCH ×2 (09:29→21:24)
--- NOTE | 2018-03-14 10:25 | PN ---
Progress Note (short form) - Note Progress Note: PULMONARY/CCM Pt seen and examined in the ICU. Remains intubated, sedated on levophed gtt. Vented on volume assist control with 80% FiO2, PEEP 7.5. Last Vital Signs Temp Pulse Resp BP Pulse Ox 98.4 F 62 15 116/62 96 03/14/18 08:00 03/14/18 09:30 03/14/18 09:30 03/14/18 08:00 03/14/18 09:30 Intake & Output 03/11/18 03/12/18 03/13/18 03/14/18 23:59 23:59 23:59 23:59 Intake Total 5437.5 2565 Output Total 4000 5435 1100 Balance -4000 2.5 1465 Weight 81.193 kg 80.286 kg 81.193 kg Gen: intubated, sedated Heart: RRR Lung: scattered rhonchi Abd: soft, dressings intact Ext: no edema CBC, BMP 03/14/18 05:50 03/14/18 05:50 ABG Results ABG pH 7.48 (7.35-7.45) H 03/13/18 05:30 ABG pCO2 at Pt Temp 45.9 mmHg (35-45) H 03/13/18 05:30 ABG pO2 at Pt Temp 90.8 mmHg (68-100) D 03/13/18 05:30 ABG HCO3 34.0 meq/L (22-26) H 03/13/18 05:30 ABG O2 Sat (Measured) 97.5 % (90-98.9) 03/13/18 05:30 ABG O2 Content 19.4 % vol (15-22) 03/13/18 05:30 ABG Base Excess 9.4 meq/l (-2-2) H 03/13/18 05:30 Active Medications Chlorhexidine Gluconate (Peridex -) 15 ml MM BID [facility] Last Admin: 03/14/18 09:03 Dose: 15 ml Chlorhexidine Gluconate (Hibiclens For Decolonization -) 1 applic TP HS [facility] Last Admin: 03/13/18 22:16 Dose: 1 applic Heparin Sodium (Porcine) (Heparin -) 5,000 unit SQ TID JUDY Last Admin: 03/14/18 05:47 Dose: 5,000 unit Propofol (Diprivan -) 1,000,000 mcg in 100 mls @ 4.736 mls/hr IV TITR JUDY; 10 MCG/KG/MIN PRN Reason: Protocol Last Admin: 03/14/18 05:16 Dose: Not Given Fentanyl 500 mcg/ Dextrose 100 mls @ 10 mls/hr IVPB TITR JUDY; 50 MCG/HR PRN Reason: Protocol Last Admin: 03/14/18 05:17 Dose: Not Given Norepinephrine Bitartrate 8, (000 mcg/ Dextrose) 500 mls @ 18.75 mls/hr IV ASDIR JUDY; 5 MCG/MIN PRN Reason: Protocol Last Admin: 03/14/18 05:17 Dose: Not Given Dextrose/Lactated Ringer's (D5-Lr -) 1,000 mls @ 125 mls/hr IV ASDIR JUDY Last Admin: 03/13/18 19:00 Dose: 125 mls/hr Piperacillin Sod/Tazobactam (Sod 3.375 gm/ Dextrose) 50 mls @ 100 mls/hr IVPB Q8H-IV JUDY PRN Reason: Protocol Last Admin: 03/14/18 09:04 Dose: 100 mls/hr Potassium Phosphate 30 mm/ (Sodium Chloride) 260 mls @ 43.333 mls/hr IVPB ONCE ONE Stop: 03/14/18 14:29 Last Admin: 03/14/18 10:17 Dose: 43.333 mls/hr Mupirocin (Bactroban Ointment (For Decolonization) -) 1 applic NS BID JUDY Stop: 03/17/18 21:59 Last Admin: 03/14/18 09:29 Dose: 1 applic Ondansetron HCl (Zofran Injection) 4 mg IVPUSH Q6H PRN PRN Reason: NAUSEA Pantoprazole Sodium (Protonix Iv) 40 mg IVPUSH DAILY [facility] Last Admin: 03/14/18 09:03 Dose: 40 mg A/P Acute Hypoxic Respiratory Failure Pneumonia - ?Aspiration ARDS Incarcerated Inguinal Hernia s/p ex-lap/segmental terminal ileum resection/primary anastamosis 03/13 Septic Shock Acute Kidney Injury Lactic Acidosis Diverticulosis BPH - continue antibiotics - f/u cultures - IVF to keep CVP 8-12 - titrate pressors to maintain MAP >65 - adjusted vent settings - low tidal volume ventilation - keep Pplat <30 - replete lytes - trend lactate - monitor urine output, creatinine - sedate for vent synchrony - DVT/GI prophylaxis - continue ICU monitoring - discussed with family at bedside critical care time spent in reviewing chart, evaluating patient and formulating plan 35 min
--- NOTE | 2018-03-14 14:09 | PN ---
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, possibly secondary to incarcerated RIGHT inguinal hernia also with likely aspiration pre-hospital, now with ARDS left intubated postoperatively, in ICU, sedated and on norepinephrine for BP support - not responsive no overnight events CVP 8 yesterday am, 10 this am UOP in [place] decreasing - last 3 recorded 700 (9hrs), 400 (6hrs), 350 (7hrs) NG with 3600ml yesterday Pt's and [id number] in room, answered questions - Current Medication List Current Medications: Active Medications Chlorhexidine Gluconate (Peridex -) 15 ml MM BID [facility]Y Last Admin: 03/14/18 09:03 Dose: 15 ml Chlorhexidine Gluconate (Hibiclens For Decolonization -) 1 applic TP HS [facility] Last Admin: 03/13/18 22:16 Dose: 1 applic Heparin Sodium (Porcine) (Heparin -) 5,000 unit SQ TID [facility] Last Admin: 03/14/18 05:47 Dose: 5,000 unit Propofol (Diprivan -) 1,000,000 mcg in 100 mls @ 4.736 mls/hr IV TITR JUDY; 10 MCG/KG/MIN PRN Reason: Protocol Last Admin: 03/14/18 05:16 Dose: Not Given Fentanyl 500 mcg/ Dextrose 100 mls @ 10 mls/hr IVPB TITR JUDY; 50 MCG/HR PRN Reason: Protocol Last Admin: 03/14/18 05:17 Dose: Not Given Norepinephrine Bitartrate 8, (000 mcg/ Dextrose) 500 mls @ 18.75 mls/hr IV ASDIR JUDY; 5 MCG/MIN PRN Reason: Protocol Last Titration: 03/14/18 07:00 Dose: 10 mcg/min, 37.5 mls/hr Dextrose/Lactated Ringer's (D5-Lr -) 1,000 mls @ 125 mls/hr IV ASDIR JUDY Last Admin: 03/13/18 19:00 Dose: 125 mls/hr Piperacillin Sod/Tazobactam (Sod 3.375 gm/ Dextrose) 50 mls @ 100 mls/hr IVPB Q8H-IV JUDY PRN Reason: Protocol Last Admin: 03/14/18 09:04 Dose: 100 mls/hr Potassium Phosphate 30 mm/ (Sodium Chloride) 260 mls @ 43.333 mls/hr IVPB ONCE ONE Stop: 03/14/18 14:29 Last Admin: 03/14/18 10:17 Dose: 43.333 mls/hr Mupirocin (Bactroban Ointment (For Decolonization) -) 1 applic NS BID [facility] Stop: 03/17/18 21:59 Last Admin: 03/14/18 09:29 Dose: 1 applic Ondansetron HCl (Zofran Injection) 4 mg IVPUSH Q6H PRN PRN Reason: NAUSEA Pantoprazole Sodium (Protonix Iv) 40 mg IVPUSH DAILY [facility] Last Admin: 03/14/18 09:03 Dose: 40 mg - Objective Vital Signs: Vital Signs Temperature 98 F 03/14/18 12:00 Pulse Rate 64 03/14/18 12:00 Respiratory Rate 12 03/14/18 12:00 Blood Pressure 119/59 03/14/18 12:00 O2 Sat by Pulse Oximetry (%) 96 03/14/18 09:30 Vital Signs Period Temp Pulse Resp BP Sys/Ceballos Pulse Ox Last 24 Hr 98 F-98.6 F 61-69 11-16 98-149/53-73 96-99 Intake & Output 03/13/18 03/14/18 03/14/18 23:59 07:59 15:59 Intake Total 2380 2565 Output Total 3600 1100 350 Balance -1220 1465 -350 Weight 179 lb Intake: IV 2160 2465 D5-Lr - 1,000 ml @ 125 1700 mls/hr IV ASDIR JUDY Rx#: [id number] D5-Ns - 1,000 ml @ 150 600 mls/hr IV ASDIR JUDY Rx#: [id number] DIPRIVAN - 1,000,000 mcg 210 245 In 100 ml @ 10 MCG/KG/MIN 4.736 mls/hr IV TITR JUDY Rx#:[id number] LACTATED RINGERS SOLUTION 600 1,000 ml In 1,000 ml @ 150 mls/hr IV ASDIR JUDY Rx#:[id number] LACTATED RINGERS SOLUTION 300 1,000 ml In 1,000 ml @ 150 mls/hr IV ASDIR JUDY Rx#:[id number] Levophed - 8,000 Mcg In 450 400 D5w - 492 ml @ 5 MCG/MIN 18.75 mls/hr IV ASDIR JUDY Rx#:[id number] fentanyl 120 IVPB 220 100 Output: Gastric Drainage 3600 Urine 1100 350 Scott 1100 350 Other: Voiding Method Indwelling Catheter Indwelling Catheter Indwelling Catheter Bowel Movement No No Weight Measurement Method Built in [facility] Constitutional: Yes: Well Nourished, No Distress, Calm HENT: Yes: Other (NG in place with clear/yellowish output) Cardiovascular: Yes: Regular Rate and Rhythm. No: Murmur Respiratory: Yes: Regular, Diminished, Intubated, Mechanically Ventilated, Rhonchi (few scattered? difficult to hear) Gastrointestinal: Yes: Soft, Distention (mild), Hypoactive Bowel Sounds. No: Tenderness (sedated, no response to palpation) Genitourinary: Yes: Scott Present. No: Hematuria Extremities: No: Cool, Cyanosis Integumentary: Yes: Incision (midline, dressed). No: Jaundice, Rash Wound/Incision: Yes: Dressing Dry and Intact (small dried bloody spot visible at edge of lower portion, no strikethrough). No: Dressing Removed Neurological: Yes: Unresponsive. No: Alert (sedated on vent) Labs: CBC, BMP 03/14/18 05:50 03/14/18 05:50 CMP Sodium 138 mmol/L (136-145) 03/14/18 05:50 Potassium 3.6 mmol/L (3.5-5.1) 03/14/18 05:50 Chloride 98 mmol/L (98-107) 03/14/18 05:50 Carbon Dioxide 36 mmol/L (21-32) H 03/14/18 05:50 Anion Gap 4 (8-16) L 03/14/18 05:50 BUN 22 mg/dL (7-18) H D 03/14/18 05:50 Creatinine 1.1 mg/dL (0.7-1.3) D 03/14/18 05:50 Creat Clearance w eGFR > 60 (>60) 03/14/18 05:50 Random Glucose 190 mg/dL (74-106) H 03/14/18 05:50 Lactic Acid 2.4 mmol/L (0.0-2.0) H* 03/14/18 05:50 Calcium 7.8 mg/dL (8.5-10.1) L 03/14/18 05:50 Phosphorus 2.2 mg/dL (2.5-4.9) L D 03/14/18 05:50 Magnesium 2.8 mg/dL (1.8-2.4) H D 03/14/18 05:50 Total Bilirubin 1.8 mg/dL (0.2-1.0) H D 03/14/18 05:50 Direct Bilirubin 0.5 mg/dL (0.0-0.2) H 03/13/18 19:30 AST 31 U/L (15-37) D 03/14/18 05:50 ALT 40 U/L (12-78) D 03/14/18 05:50 Alkaline Phosphatase 52 U/L (45-117) 03/14/18 05:50 Creatine Kinase 527 IU/L (39-308) H 03/12/18 14:45 Creatine Kinase Index 1.0 % (0.0-5.0) 03/12/18 14:45 CK-MB (CK-2) 5.556 ng/mL (0.5-3.6) H 03/12/18 14:45 Troponin I 0.02 ng/ml (0.00-0.05) 03/12/18 14:45 Total Protein 4.8 g/dl (6.4-8.2) L 03/14/18 05:50 Albumin 2.0 g/dl (3.4-5.0) L 03/14/18 05:50 Lipase 84 U/L (73-393) 03/12/18 14:45 lactate down but still 2.4 BUN/Cr coming down K, Phos being replaced Microbiology 03/13/18 02:25 Gram Stain - Final Peritoneal Fluid Body Fluid Culture - Preliminary NO AEROBIC GROWTH, 24 HRS 03/12/18 14:51 Blood Culture - Preliminary Blood - Peripheral Venous NO GROWTH OBTAINED AFTER 24 HOURS, INCUBATION TO CONTINUE FOR 4 DAYS. 03/12/18 14:51 Blood Culture - Preliminary Blood - Peripheral Venous NO GROWTH OBTAINED AFTER 24 HOURS, INCUBATION TO CONTINUE FOR 4 DAYS. 03/12/18 22:12 Legionella Antigen - Final Urine For Antigen Detection Streptococcus pneumoniae Antigen (M - Final GS with no org's, no PMNs - ....Imaging Chest X-ray: Report Reviewed (persistent bilateral pulmonary, pleural changes), Image Reviewed (image personally reviewed, increasing fluffiness in lower lobes , ETT, NG in place, RIJ line in place) Problem List - Problems (1) Aspiration pneumonia of both lower lobes due to gastric secretions Assessment/Plan: remains intubated and sedated postoperatively in ICU with ARDS picture vent support decreasing, now 60% with P10 septic/SIRS with negative blood cultures and negative peritoneal fluid culture on norepinephrine 10mcg/kg - wean as able Scott with UOP decreasing, not in positive fluid balance - will trend CVP q2H and increase IVF continue vent support, sedation with daily holiday antibiotics per ID Code(s): J69.0 - PNEUMONITIS DUE TO INHALATION OF FOOD AND VOMIT (2) Strangulated inguinal hernia Assessment/Plan: POD1 s/p laparotomy with 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, possibly secondary to incarcerated RIGHT inguinal hernia dressing c/d/i NGT/NPO/IVF Code(s): K40.30 - UNIL INGUINAL HERNIA, W OBST, W/O GANGR, NOT SPCF RECUR (3) SBO (small bowel obstruction) Assessment/Plan: secondary to terminal ileal mesenteric infarction, possibly RIGHT inguinal hernia with incarceration of this segment NGT in place continue NPO/IVF no bowel sounds yet await bowel function remains intubated, sedated on pressor Code(s): K56.609 - UNSP INTESTNL OBST, UNSP TO PARTIAL VERSUS COMPLETE OBST (4) Incarcerated left inguinal hernia Assessment/Plan: LEFT inguinal hernia with larger defect/internal ring contents (sigmoid colon by CT) reduced on table after induction of anesthesia not related to small bowel obstruction Code(s): K40.30 - UNIL INGUINAL HERNIA, W OBST, W/O GANGR, NOT SPCF RECUR Assessment/Plan This patient is critically ill. Time spent reviewing chart, examining patient, talking with providers and/or family and documentation is 35 minutes
[2018-03-14] MEDS: DEXTROSE 5%-LACTATED RINGERS 1,000 ML IV SCH (14:23)
[2018-03-14] MEDS ORDERED: SODIUM CHLORIDE 1,000 ML IV STA (14:48)
--- NOTE | 2018-03-14 14:48 | PN ---
Progress Note, Physician History of Present Illness: continues to be sedated and intubated does respond still on levaphed ng tube still draining - Current Medication List Current Medications: Active Medications Chlorhexidine Gluconate (Peridex -) 15 ml MM BID [facility] Last Admin: 03/14/18 09:03 Dose: 15 ml Chlorhexidine Gluconate (Hibiclens For Decolonization -) 1 applic TP HS [facility] Last Admin: 03/13/18 22:16 Dose: 1 applic Heparin Sodium (Porcine) (Heparin -) 5,000 unit SQ TID [facility]Y Last Admin: 03/14/18 14:23 Dose: 5,000 unit Propofol (Diprivan -) 1,000,000 mcg in 100 mls @ 4.736 mls/hr IV TITR JUDY; 10 MCG/KG/MIN PRN Reason: Protocol Last Admin: 03/14/18 05:16 Dose: Not Given Fentanyl 500 mcg/ Dextrose 100 mls @ 10 mls/hr IVPB TITR JUDY; 50 MCG/HR PRN Reason: Protocol Last Admin: 03/14/18 05:17 Dose: Not Given Norepinephrine Bitartrate 8, (000 mcg/ Dextrose) 500 mls @ 18.75 mls/hr IV ASDIR JUDY; 5 MCG/MIN PRN Reason: Protocol Last Titration: 03/14/18 07:00 Dose: 10 mcg/min, 37.5 mls/hr Dextrose/Lactated Ringer's (D5-Lr -) 1,000 mls @ 125 mls/hr IV ASDIR JUDY Last Admin: 03/14/18 14:23 Dose: 125 mls/hr Piperacillin Sod/Tazobactam (Sod 3.375 gm/ Dextrose) 50 mls @ 100 mls/hr IVPB Q8H-IV JUDY PRN Reason: Protocol Last Admin: 03/14/18 09:04 Dose: 100 mls/hr Sodium Chloride (Normal Saline -) 1,000 mls @ 1,000 mls/hr IV ASDIR STA Stop: 03/14/18 15:46 Mupirocin (Bactroban Ointment (For Decolonization) -) 1 applic NS BID JUDY Stop: 03/17/18 21:59 Last Admin: 03/14/18 09:29 Dose: 1 applic Ondansetron HCl (Zofran Injection) 4 mg IVPUSH Q6H PRN PRN Reason: NAUSEA Pantoprazole Sodium (Protonix Iv) 40 mg IVPUSH DAILY [facility] Last Admin: 03/14/18 09:03 Dose: 40 mg - Objective Vital Signs: Vital Signs Temperature 98 F 03/14/18 12:00 Pulse Rate 64 03/14/18 14:00 Respiratory Rate 15 03/14/18 14:00 Blood Pressure 110/59 03/14/18 14:00 O2 Sat by Pulse Oximetry (%) 96 03/14/18 09:30 Constitutional: Yes: No Distress, Other Cardiovascular: Yes: Regular Rate and Rhythm Respiratory: Yes: Intubated, Mechanically Ventilated Gastrointestinal: Yes: Soft, Other (ng tube in place absent bowel sounds) Genitourinary: Yes: Scott Present Musculoskeletal: Yes: WNL Extremities: Yes: WNL Wound/Incision: Yes: Clean/Dry Neurological: Yes: Other Labs: CBC, BMP 03/14/18 05:50 03/14/18 05:50 INR, PTT INR 1.19 (0.82-1.09) H 03/12/18 20:01 Assessment/Plan Problem List - Problems (1) Strangulated inguinal hernia Pulmonary evaluation - weaning today? GI Evaluation - Tbili 3.5, 3.6 BP goal MAP 65-70, has a stapled small bowel anastomosis avoid lwo flow states will follow Code(s): K40.30 - UNIL INGUINAL HERNIA, W OBST, W/O GANGR, NOT SPCF RECUR (2) Incarcerated left inguinal hernia Code(s): K40.30 - UNIL INGUINAL HERNIA, W OBST, W/O GANGR, NOT SPCF RECUR (3) BPH (benign prostatic hyperplasia) Code(s): N40.0 - BENIGN PROSTATIC HYPERPLASIA WITHOUT LOWER URINRY TRACT SYMP Qualifiers: Lower urinary tract symptom presence: symptoms present Lower urinary tract symptom detail: urinary frequency Qualified Code(s): N40.1 - Benign prostatic hyperplasia with lower urinary tract symptoms; R35.0 - Frequency of micturition ; R35.0 - Frequency of micturition (4) DDD (degenerative disc disease), cervical Code(s): M50.30 - OTHER CERVICAL DISC DEGENERATION, UNSP CERVICAL REGION (5) SBO (small bowel obstruction) Code(s): K56.609 - UNSP INTESTNL OBST, UNSP TO PARTIAL VERSUS COMPLETE OBST (6) Aspiration pneumonia of both lower lobes due to gastric secretions Code(s): J69.0 - PNEUMONITIS DUE TO INHALATION OF FOOD AND VOMIT plan continue close monitoring resp support vent support wean as tolerated continue abx rest as per icu await for final cx report continue pressors for now cc time 40 min
[2018-03-14] MEDS: CHLORHEXIDINE GLUCONATE 4% CLEANSER FOR DECOLONIZATION TP SCH (21:25)
--- NOTE | 2018-03-14 22:39 | PN ---
Progress Note, Physician Chief Complaint: SBO History of Present Illness: 82 yo male PMH BPH, degernerative disc disease (cervical), diverticulosis, hemorrhoids presented to the ED with abdominal pain and vomiting for on day. He reports that he was weight training yesterday and developed some groin pain. He remains sedated and intubated in the ICU post op give poor saturation preop. He on low dose vasopressor support overnight. - Current Medication List Current Medications: Active Medications Chlorhexidine Gluconate (Peridex -) 15 ml MM BID JUDY Last Admin: 03/14/18 21:25 Dose: 15 ml Chlorhexidine Gluconate (Hibiclens For Decolonization -) 1 applic TP HS JUDY Last Admin: 03/14/18 21:25 Dose: 1 applic Heparin Sodium (Porcine) (Heparin -) 5,000 unit SQ TID JUDY Last Admin: 03/14/18 21:25 Dose: 5,000 unit Propofol (Diprivan -) 1,000,000 mcg in 100 mls @ 4.736 mls/hr IV TITR JUDY; 10 MCG/KG/MIN PRN Reason: Protocol Last Admin: 03/14/18 19:00 Dose: 35 mcg/kg/min, 16.574 mls/hr Fentanyl 500 mcg/ Dextrose 100 mls @ 10 mls/hr IVPB TITR JUDY; 50 MCG/HR PRN Reason: Protocol Last Admin: 03/14/18 05:17 Dose: Not Given Norepinephrine Bitartrate 8, (000 mcg/ Dextrose) 500 mls @ 18.75 mls/hr IV ASDIR JUDY; 5 MCG/MIN PRN Reason: Protocol Last Titration: 03/14/18 22:13 Dose: 6 mcg/min, 22.5 mls/hr Dextrose/Lactated Ringer's (D5-Lr -) 1,000 mls @ 125 mls/hr IV ASDIR JUDY Last Admin: 03/14/18 14:23 Dose: 125 mls/hr Piperacillin Sod/Tazobactam (Sod 3.375 gm/ Dextrose) 50 mls @ 100 mls/hr IVPB Q8H-IV JUDY PRN Reason: Protocol Last Admin: 03/14/18 18:03 Dose: 100 mls/hr Mupirocin (Bactroban Ointment (For Decolonization) -) 1 applic NS BID JUDY Stop: 03/17/18 21:59 Last Admin: 03/14/18 21:24 Dose: 1 applic Ondansetron HCl (Zofran Injection) 4 mg IVPUSH Q6H PRN PRN Reason: NAUSEA Pantoprazole Sodium (Protonix Iv) 40 mg IVPUSH DAILY [facility] Last Admin: 03/14/18 09:03 Dose: 40 mg - Objective Vital Signs: Vital Signs Temperature 99 F 03/14/18 16:00 Pulse Rate 82 03/14/18 22:13 Respiratory Rate 12 03/14/18 22:00 Blood Pressure 109/57 03/14/18 22:13 O2 Sat by Pulse Oximetry (%) 96 03/14/18 09:30 Vital Signs Period Temp Pulse Resp BP Sys/Ceballos Pulse Ox Last 24 Hr 98 F-99 F 61-83 11-17 102-131/54-69 96-99 Intake & Output 03/14/18 03/14/18 03/14/18 07:59 15:59 23:59 Intake Total 2565 3619 Output Total 1100 350 575 Balance 1465 -350 3044 Weight 179 lb 179 lb Intake: IV 2465 3269 D5-Lr - 1,000 ml @ 125 1700 1500 mls/hr IV ASDIR JUDY Rx#: [id number] DIPRIVAN - 1,000,000 mcg 245 199 In 100 ml @ 10 MCG/KG/MIN 4.736 mls/hr IV TITR JUDY Rx#:[id number] Levophed - 8,000 Mcg In 400 450 D5w - 492 ml @ 5 MCG/MIN 18.75 mls/hr IV ASDIR JUDY Rx#:[id number] Normal Saline - 1,000 ml 1000 @ 1000 mls/hr IV ASDIR STA Rx#:[id number] fentanyl 120 120 IVPB 100 350 Output: Gastric Drainage 100 Urine 1100 350 475 [place] 1100 350 475 Other: Voiding Method Indwelling Catheter Indwelling Catheter Bowel Movement No No Height 5 ft 9 in Body Mass Index (BMI) 26.4 Weight Measurement Method Built in [facility] Constitutional: Yes: Well Nourished, No Distress, Calm Eyes: Yes: Conjunctiva Clear, EOM Intact HENT: Yes: Atraumatic, Normocephalic Neck: Yes: Supple, Trachea Midline Cardiovascular: Yes: Regular Rate and Rhythm, S1, S2 Respiratory: Yes: Regular, CTA Bilaterally, Mechanically Ventilated Gastrointestinal: Yes: Normal Bowel Sounds, Soft. No: Ascites, Distention, Tenderness ...Rectal Exam: Yes: Deferred Genitourinary: No: CVA Tenderness - Left, CVA Tenderness - Right Musculoskeletal: No: Muscle Pain, Muscle Weakness Extremities: No: Cool, Cyanosis Edema: Yes Peripheral Pulses WNL: No Peripheral Pulses: Left Doralis Pedis: 2+, Right Dorsalis Pedis: 2+ Wound/Incision: Yes: Clean/Dry, Well Approximated, [place] Intact. No: Draining , Reddened, Bleeding Neurological: Yes: Alert, Oriented Psychiatric: Yes: Alert, Oriented Labs: CBC, BMP 03/14/18 05:50 03/14/18 05:50 INR, PTT INR 1.19 (0.82-1.09) H 03/12/18 20:01 Problem List - Problems (1) Strangulated inguinal hernia Assessment/Plan: 82yo male MMP relatively healthy with SBO abdominal pain non reducible LIH, Lactic acid 3.4->6.9->1.8, Tbili >3, WBC 17->13, CTscan with SBO, unclear transition point and no clear bowel ischemia identified. Bibasilar pulmonary consolidation and hoarsness may be a sequela of an aspiration. POD#2 s/p Exploratory Laparotomy, segmental ressection of SB and primary stapled anastomosis for strangulated RIH. ICU management Agree with repeat scan of Chest/ Abdomen and pelvis NPO and IVF hydration NGT decompression continue quintero empiric IV antibiotics GI and DVT prophylaxsis will follow This patient is critically ill. Time spent reviewing chart, examining patient, talking with providers and/or family and documentation is 45 minutes Code(s): K40.30 - UNIL INGUINAL HERNIA, W OBST, W/O GANGR, NOT SPCF RECUR (2) Incarcerated left inguinal hernia Code(s): K40.30 - UNIL INGUINAL HERNIA, W OBST, W/O GANGR, NOT SPCF RECUR (3) BPH (benign prostatic hyperplasia) Code(s): N40.0 - BENIGN PROSTATIC HYPERPLASIA WITHOUT LOWER URINRY TRACT SYMP Qualifiers: Lower urinary tract symptom presence: symptoms present Lower urinary tract symptom detail: urinary frequency Qualified Code(s): N40.1 - Benign prostatic hyperplasia with lower urinary tract symptoms; R35.0 - Frequency of micturition ; R35.0 - Frequency of micturition (4) DDD (degenerative disc disease), cervical Code(s): M50.30 - OTHER CERVICAL DISC DEGENERATION, UNSP CERVICAL REGION (5) SBO (small bowel obstruction) Code(s): K56.609 - UNSP INTESTNL OBST, UNSP TO PARTIAL VERSUS COMPLETE OBST (6) Aspiration pneumonia of both lower lobes due to gastric secretions Code(s): J69.0 - PNEUMONITIS DUE TO INHALATION OF FOOD AND VOMIT
[2018-03-14] MEDS ORDERED: ACETAMINOPHEN 1000 MG/100 ML VIAL (NON FORMULARY) IVPB ONE (22:48)
[2018-03-15] MEDS ORDERED: DEXTROSE 5%-WATER - 50 ML IVPB ONE ×3 (00:05→17:28)
[2018-03-15] MEDS ORDERED: PIPERACILLIN/TAZOBACTAM 3.375 GM VIAL IVPB ONE ×3 (00:05→17:28)
[2018-03-15] MEDS ORDERED: fentaNYL CITRATE 250 MCG/5 ML VIAL ONE ×3 (02:10→21:38)
[2018-03-15] MEDS: PIPERACILLIN/TAZOB 3.375 GM 3.375 GM in DEXTROSE 5%-WATER - 50 ML IVPB SCH ×3 (02:53→17:29)
[2018-03-15] MEDS: PROPOFOL 1,000,000 MCG/100 ML VIAL IV SCH ×4 (02:54→22:44)
[2018-03-15] MEDS: FENTANYL INJECTION 500 MCG in DEXTROSE 5%-WATER - 90 ML IVPB SCH ×3 (02:55→12:20)
[2018-03-15] MEDS ORDERED: PROPOFOL 1,000,000 MCG/100 ML VIAL ONE (02:58)
[2018-03-15] MEDS: NOREPINEPHRINE BITARTRATE 8,000 MCG in DEXTROSE 5%-WATER - 492 ML IV SCH (05:00)
[2018-03-15 06:00] LABS: ARTERIAL BLOOD GAS BASE EXCESS 4.6 meq/l (-2-2); ARTERIAL BLOOD GAS PCO2 50.9 mmHg (35-45); ARTERIAL BLOOD GAS PO2 88.7 mmHg (68-100); ARTERIAL BLOOD GAS pH 7.39 (7.35-7.45)
[2018-03-15 06:01] LABS: ALLENS TEST POSITIVE
[2018-03-15 06:07] LABS: HEMATOCRIT 37.9 % (35.4-49); HEMOGLOBIN 12.6 GM/dL (11.7-16.9); MCH 30.8 pg (25.7-33.7); MCHC 33.3 g/dl (32.0-35.9); MEAN CELL VOLUME 92.5 fl (80-96); MEAN PLT VOLUME 9.4 fl (7.5-11.1); PLATELET COUNT 158 K/MM3 (134-434); RBC 4.09 M/mm3 (4.00-5.60); RDW 13.2 % (11.9-15.9); WHITE BLOOD COUNT 11.3 K/mm3 (4.0-10.0)
[2018-03-15] MEDS: HEPARIN NA (PORCINE) 5,000 UNITS/ML 1ML VIAL SQ SCH ×3 (06:21→22:42)
[2018-03-15 06:39] LABS: CHLORIDE 103 mmol/L (98-107); POTASSIUM 3.7 mmol/L (3.5-5.1); SODIUM 140 mmol/L (136-145)
[2018-03-15 06:47] LABS: ALBUMIN 1.8 g/dl (3.4-5.0); ALK PHOS 57 U/L (45-117); ANION GAP 4 (8-16); BILIRUBIN,TOTAL 1.3 mg/dL (0.2-1.0); BLOOD UREA NITROGEN 20 mg/dL (7-18); CALCIUM 7.2 mg/dL (8.5-10.1); CO2 33 mmol/L (21-32); GLUCOSE,RANDOM 124 mg/dL (74-106); MAGNESIUM 2.5 mg/dL (1.8-2.4); PHOSPHOROUS 2.4 mg/dL (2.5-4.9); SGOT/AST 35 U/L (15-37); SGPT/ALT 34 U/L (12-78); TOT PROT 4.5 g/dl (6.4-8.2)
[2018-03-15] MEDS: PANTOPRAZOLE SODIUM 40 MG VIAL IVPUSH SCH (09:12)
[2018-03-15] MEDS: MUPIROCIN 2% TOPICAL OINTMENT FOR DECOLONIZATION NS SCH ×2 (09:13→22:42)
[2018-03-15] MEDS: CHLORHEXIDINE GLUCONATE 0.12% 15ML CUP MM SCH ×2 (09:13→22:43)
[2018-03-15] MEDS ORDERED: ACETAMINOPHEN 1000 MG/100 ML VIAL (NON FORMULARY) IVPB ONE (09:15)
--- NOTE | 2018-03-15 09:50 | PN ---
Progress Note (short form) - Note Progress Note: PULMONARY/CCM Pt seen and examined in the ICU. Remains intubated, sedated on levophed gtt but on lower dose. Vented on volume assist control with 60% FiO2, PEEP 10. CVP this AM 13. Last Vital Signs Temp Pulse Resp BP Pulse Ox 101.2 F H 73 15 95/56 94 L 03/15/18 08:00 03/15/18 08:57 03/15/18 08:57 03/15/18 08:00 03/15/18 08:57 Intake & Output 03/12/18 03/13/18 03/14/18 03/15/18 23:59 23:59 23:59 23:59 Intake Total 5437.5 7025.4 1380.3 Output Total 4000 5435 2085 350 Balance -4000 2.5 4940.4 1030.3 Weight 81.193 kg 80.286 kg 81.193 kg 81.102 kg Gen: intubated, sedated Heart: RRR Lung: scattered rhonchi Abd: soft, dressings intact Ext: + edema CBC, BMP 03/15/18 05:55 03/15/18 05:55 Active Medications Chlorhexidine Gluconate (Peridex -) 15 ml MM BID JUDY Last Admin: 03/15/18 09:13 Dose: 15 ml Chlorhexidine Gluconate (Hibiclens For Decolonization -) 1 applic TP HS JUDY Last Admin: 03/14/18 21:25 Dose: 1 applic Heparin Sodium (Porcine) (Heparin -) 5,000 unit SQ TID JUDY Last Admin: 03/15/18 06:21 Dose: 5,000 unit Propofol (Diprivan -) 1,000,000 mcg in 100 mls @ 4.736 mls/hr IV TITR JUDY; 10 MCG/KG/MIN PRN Reason: Protocol Last Admin: 03/15/18 04:00 Dose: Not Given Fentanyl 500 mcg/ Dextrose 100 mls @ 10 mls/hr IVPB TITR JUDY; 50 MCG/HR PRN Reason: Protocol Last Admin: 03/15/18 06:21 Dose: 10 mls/hr Norepinephrine Bitartrate 8, (000 mcg/ Dextrose) 500 mls @ 18.75 mls/hr IV ASDIR JUDY; 5 MCG/MIN PRN Reason: Protocol Last Admin: 03/15/18 05:00 Dose: Not Given Dextrose/Lactated Ringer's (D5-Lr -) 1,000 mls @ 125 mls/hr IV ASDIR [facility] Last Admin: 03/14/18 14:23 Dose: 125 mls/hr Piperacillin Sod/Tazobactam (Sod 3.375 gm/ Dextrose) 50 mls @ 100 mls/hr IVPB Q8H-IV JUDY PRN Reason: Protocol Last Admin: 03/15/18 09:12 Dose: 100 mls/hr Potassium Phosphate 30 mm/ (Sodium Chloride) 260 mls @ 62.5 mls/hr IVPB ONCE ONE Stop: 03/15/18 14:09 Mupirocin (Bactroban Ointment (For Decolonization) -) 1 applic NS BID [facility] Stop: 03/17/18 21:59 Last Admin: 03/15/18 09:13 Dose: 1 applic Ondansetron HCl (Zofran Injection) 4 mg IVPUSH Q6H PRN PRN Reason: NAUSEA Pantoprazole Sodium (Protonix Iv) 40 mg IVPUSH DAILY [facility] Last Admin: 03/15/18 09:12 Dose: 40 mg A/P Acute Hypoxic Respiratory Failure Pneumonia - ?Aspiration ARDS Incarcerated Inguinal Hernia s/p ex-lap/segmental terminal ileum resection/primary anastamosis 03/13 Septic Shock Acute Kidney Injury improving Lactic Acidosis Diverticulosis BPH - continue antibiotics - f/u cultures - IVF to keep CVP 8-12 - taper pressors to maintain MAP >65 - will likely need lasix once hemodynamically stable - monitor urine output, creatinine - low tidal volume ventilation - keep Pplat <30 - taper FiO2, PEEP to keep SpO2 >90% - DVT/GI prophylaxis - continue ICU monitoring critical care time spent in reviewing chart, evaluating patient and formulating plan 35 min
[2018-03-15] MEDS ORDERED: POTASSIUM PHOSPHATE 30 MM in SODIUM CHLORIDE 250 ML IVPB ONE (10:00)
--- NOTE | 2018-03-15 10:59 | PN ---
Progress Note (short form) - Note Progress Note: Subjective: fever this am. no other events Objective: Vital Signs: Last Vital Signs Temp Pulse Resp BP Pulse Ox 101.2 F H 73 15 95/56 94 L 03/15/18 08:00 03/15/18 08:57 03/15/18 08:57 03/15/18 08:00 03/15/18 08:57 Laboratory Results - last 24 hr 03/14/18 03/15/18 03/15/18 18:00 05:45 05:55 WBC 11.3 H RBC 4.09 Hgb 12.6 Hct 37.9 MCV 92.5 MCH 30.8 MCHC 33.3 RDW 13.2 Plt Count 158 MPV 9.4 Anticoagulation Therapy No Result Required. Puncture Site Arterial line ABG pH 7.39 ABG pCO2 at Pt Temp 50.9 H ABG pO2 at Pt Temp 88.7 ABG HCO3 30.2 H ABG O2 Sat (Measured) 97.0 ABG O2 Content 18.4 ABG Base Excess 4.6 H Fernando Test Positive O2 Delivery Device Mech vent Oxygen Flow Rate 60 Vent Mode No Result Required. Vent Rate 12 Mechanical Rate Yes PEEP 10.0 Pressure Support Vent 420 Sodium Potassium Chloride Carbon Dioxide Anion Gap BUN Creatinine Creat Clearance w eGFR Random Glucose Lactic Acid 1.8 Calcium Phosphorus Magnesium Total Bilirubin AST ALT Alkaline Phosphatase Total Protein Albumin 03/15/18 03/15/18 05:55 05:55 WBC RBC Hgb Hct MCV MCH MCHC RDW Plt Count MPV Anticoagulation Therapy Puncture Site ABG pH ABG pCO2 at Pt Temp ABG pO2 at Pt Temp ABG HCO3 ABG O2 Sat (Measured) ABG O2 Content ABG Base Excess Fernando Test O2 Delivery Device Oxygen Flow Rate Vent Mode Vent Rate Mechanical Rate PEEP Pressure Support Vent Sodium 140 Potassium 3.7 Chloride 103 Carbon Dioxide 33 H Anion Gap 4 L BUN 20 H Creatinine 1.0 Creat Clearance w eGFR > 60 Random Glucose 124 H D Lactic Acid 1.5 Calcium 7.2 L Phosphorus 2.4 L Magnesium 2.5 H Total Bilirubin 1.3 H D AST 35 ALT 34 Alkaline Phosphatase 57 Total Protein 4.5 L Albumin 1.8 L Physical Exam: Intubated , sedated, comfortable., round equal pupils, minimally reactive to light CV: RRR. Lungs; clear anteriorly, decreased breath sounds at bases Abd: absent BS. mid line clean surgical dressing. L inguinal hernia with no skin changes. no extension of content to scrotum. Ext: no edema or erythema ASSESSMENT AND PLAN: 82 y/o gentleman with h/o DJD, GERD, diverticulosis and other medical problems who presented with abd pain and was found to have SBO with bowel ischemia and developed acute resp failure and septic shock. 1- Acute hypoxic resp failure. due to severe sepsis and b/l PNA /ARDS - cont Abx - mechanical ventilation and sedation ( still requiring 60% FIO2 and 10 of PEEP ) 2- Septic shock. currently on 4 mcg of levophed . Map 59-61 . has fevers today - increase Levophed. - send repeat blood cx from central line and periphery - will check US of LE to r/o DVT as cause of fever - co nt zosyn, for now - will ask ID if Abx coverage should be broader. ( ? vanco, meropenema ) - COnt IVF 3- SBO and bowel ischemia: unclear etiology. - POD 2 s/p exploratory laparotomy and partial small bowel resection. - L inguinal hernia to be repaired at a later time - no growth form peritoneal fluid 4- ANATOLIY: likely prerenal due to shock. improved - cont IVF - replete Phos 5- PX: PPI and SQ heparin above d/w family at bed side ( and daughter in law ) Visit type - Emergency Visit Emergency Visit: Yes ED Registration Date: 03/12/18 Care time: The patient presented to the Emergency Department on the above date and was hospitalized for further evaluation of their emergent condition. - New Patient This patient is new to me today: No - Critical Care Critical Care patient: Yes Total Critical Care Time (in minutes): 30 Critical Care Statement: The care of this patient involved high complexity decision making to prevent further life threatening deterioration of the patient 's condition and/or to evaluate & treat vital organ system(s) failure or risk of failure.
--- NOTE | 2018-03-15 12:52 | PN ---
Progress Note, Physician Chief Complaint: SBO History of Present Illness: 82 yo male PMH BPH, degernerative disc disease (cervical), diverticulosis, hemorrhoids presented to the ED with abdominal pain and vomiting for on day. He reports that he was weight training yesterday and developed some groin pain. He remains sedated and intubated in the ICU post op give poor saturation preop. He on low dose vasopressor support overnight. - Current Medication List Current Medications: Active Medications Acetaminophen (Ofirmev Injection -) 1,000 mg IVPB Q8H PRN PRN Reason: FEVER Chlorhexidine Gluconate (Peridex -) 15 ml MM BID JUDY Last Admin: 03/15/18 09:13 Dose: 15 ml Chlorhexidine Gluconate (Hibiclens For Decolonization -) 1 applic TP HS JUDY Last Admin: 03/14/18 21:25 Dose: 1 applic Heparin Sodium (Porcine) (Heparin -) 5,000 unit SQ TID JUDY Last Admin: 03/15/18 06:21 Dose: 5,000 unit Propofol (Diprivan -) 1,000,000 mcg in 100 mls @ 4.736 mls/hr IV TITR JUDY; 10 MCG/KG/MIN PRN Reason: Protocol Last Admin: 03/15/18 09:00 Dose: 35 mcg/kg/min, 16.574 mls/hr Fentanyl 500 mcg/ Dextrose 100 mls @ 10 mls/hr IVPB TITR JUDY; 50 MCG/HR PRN Reason: Protocol Last Admin: 03/15/18 12:20 Dose: 10 mls/hr Norepinephrine Bitartrate 8, (000 mcg/ Dextrose) 500 mls @ 18.75 mls/hr IV ASDIR JUDY; 5 MCG/MIN PRN Reason: Protocol Last Admin: 03/15/18 05:00 Dose: Not Given Dextrose/Lactated Ringer's (D5-Lr -) 1,000 mls @ 125 mls/hr IV ASDIR JUDY Last Admin: 03/14/18 14:23 Dose: 125 mls/hr Piperacillin Sod/Tazobactam (Sod 3.375 gm/ Dextrose) 50 mls @ 100 mls/hr IVPB Q8H-IV JUDY PRN Reason: Protocol Last Admin: 03/15/18 09:12 Dose: 100 mls/hr Potassium Phosphate 30 mm/ (Sodium Chloride) 260 mls @ 62.5 mls/hr IVPB ONCE ONE Stop: 03/15/18 14:09 Last Admin: 03/15/18 10:48 Dose: 62.5 mls/hr Mupirocin (Bactroban Ointment (For Decolonization) -) 1 applic NS BID [facility] Stop: 03/17/18 21:59 Last Admin: 03/15/18 09:13 Dose: 1 applic Ondansetron HCl (Zofran Injection) 4 mg IVPUSH Q6H PRN PRN Reason: NAUSEA Pantoprazole Sodium (Protonix Iv) 40 mg IVPUSH DAILY [facility] Last Admin: 03/15/18 09:12 Dose: 40 mg - Objective Vital Signs: Vital Signs Temperature 100.7 F H 03/15/18 10:00 Pulse Rate 72 03/15/18 10:00 Respiratory Rate 14 03/15/18 11:36 Blood Pressure 94/54 03/15/18 10:00 O2 Sat by Pulse Oximetry (%) 94 L 03/15/18 08:57 Vital Signs Period Temp Pulse Resp BP Sys/Ceballos Pulse Ox Last 24 Hr 99 F-101.5 F 64-83 11-17 94-131/54-69 94-97 Intake & Output 03/14/18 03/15/18 03/15/18 23:59 07:59 15:59 Intake Total 4460.4 1380.3 Output Total 635 350 Balance 3825.4 1030.3 Weight 179 lb 178 lb 12.8 oz Intake: IV 4010.4 1330.3 D5-Lr - 1,000 ml @ 125 2000 937.5 mls/hr IV ASDIR JUDY Rx#: [id number] DIPRIVAN - 1,000,000 mcg 265.4 132.8 In 100 ml @ 10 MCG/KG/MIN 4.736 mls/hr IV TITR JUDY Rx#:[id number] Levophed - 8,000 Mcg In 585 180 D5w - 492 ml @ 5 MCG/MIN 18.75 mls/hr IV ASDIR JUDY Rx#:[id number] Normal Saline - 1,000 ml 1000 @ 1000 mls/hr IV ASDIR STA Rx#:[id number] fentanyl 160 80 IVPB 450 50 Output: Gastric Drainage 100 0 Urine 535 350 Quintero 535 350 Other: Voiding Method Indwelling Catheter Bowel Movement No No Height 5 ft 9 in Body Mass Index (BMI) 26.4 Weight Measurement Method Built in [facility] Constitutional: Yes: Well Nourished, No Distress, Calm Eyes: Yes: Conjunctiva Clear, EOM Intact HENT: Yes: Atraumatic, Normocephalic Neck: Yes: Supple, Trachea Midline Cardiovascular: Yes: Regular Rate and Rhythm, S1, S2 Respiratory: Yes: Regular, CTA Bilaterally, Mechanically Ventilated Gastrointestinal: Yes: Soft, Hypoactive Bowel Sounds. No: Distention ...Rectal Exam: Yes: Deferred Genitourinary: No: CVA Tenderness - Left, CVA Tenderness - Right Extremities: No: Cool, Cyanosis Edema: LUE: 1+, RUE: 1+, LLE: 1+, RLE: 1+ Peripheral Pulses WNL: Yes Peripheral Pulses: Left Radial: 2+, Right Radial: 2+, Left Doralis Pedis: 2+, Right Dorsalis Pedis: 2+, Left Femoral: 2+, Right Femoral: 2+ Integumentary: No: Jaundice, Rash Wound/Incision: Yes: Clean/Dry, Well Approximated, Albino Intact Neurological: Yes: Alert, Oriented Psychiatric: Yes: Alert, Oriented Labs: CBC, BMP 03/15/18 05:55 03/15/18 05:55 INR, PTT INR 1.19 (0.82-1.09) H 03/12/18 20:01 Problem List - Problems (1) Strangulated inguinal hernia Assessment/Plan: 82yo male MMP relatively healthy with SBO abdominal pain non reducible LIH, Lactic acid 3.4->6.9->1.8, Tbili >3, WBC 17->13, CTscan with SBO, unclear transition point and no clear bowel ischemia identified. Bibasilar pulmonary consolidation and hoarsness may be a sequela of an aspiration. POD#3 s/p Exploratory Laparotomy, segmental ressection of SB and primary stapled anastomosis for strangulated RIH. spiking fevers 101, likely worsening pneumonia. ICU management Agree with repeat scan of Chest/ Abdomen and pelvis NPO and IVF hydration NGT decompression continue quintero empiric IV antibiotics GI and DVT prophylaxsis will follow This patient is critically ill. Time spent reviewing chart, examining patient, talking with providers and/or family and documentation is 45 minutes Code(s): K40.30 - UNIL INGUINAL HERNIA, W OBST, W/O GANGR, NOT SPCF RECUR (2) Incarcerated left inguinal hernia Code(s): K40.30 - UNIL INGUINAL HERNIA, W OBST, W/O GANGR, NOT SPCF RECUR (3) BPH (benign prostatic hyperplasia) Code(s): N40.0 - BENIGN PROSTATIC HYPERPLASIA WITHOUT LOWER URINRY TRACT SYMP Qualifiers: Lower urinary tract symptom presence: symptoms present Lower urinary tract symptom detail: urinary frequency Qualified Code(s): N40.1 - Benign prostatic hyperplasia with lower urinary tract symptoms; R35.0 - Frequency of micturition ; R35.0 - Frequency of micturition (4) DDD (degenerative disc disease), cervical Code(s): M50.30 - OTHER CERVICAL DISC DEGENERATION, UNSP CERVICAL REGION (5) SBO (small bowel obstruction) Code(s): K56.609 - UNSP INTESTNL OBST, UNSP TO PARTIAL VERSUS COMPLETE OBST (6) Aspiration pneumonia of both lower lobes due to gastric secretions Code(s): J69.0 - PNEUMONITIS DUE TO INHALATION OF FOOD AND VOMIT
[2018-03-15] MEDS: DEXTROSE 5%-LACTATED RINGERS 1,000 ML IV SCH (14:45)
[2018-03-15] MEDS: ACETAMINOPHEN 1000 MG/100 ML VIAL (NON FORMULARY) IVPB PRN (17:48)
[2018-03-15] MEDS: CHLORHEXIDINE GLUCONATE 4% CLEANSER FOR DECOLONIZATION TP SCH (22:43)
[2018-03-16] MEDS ORDERED: DEXTROSE 5%-WATER - 50 ML IVPB ONE ×4 (00:18→22:58)
[2018-03-16] MEDS ORDERED: PIPERACILLIN/TAZOBACTAM 3.375 GM VIAL IVPB ONE ×4 (00:18→22:58)
[2018-03-16] MEDS: PIPERACILLIN/TAZOB 3.375 GM 3.375 GM in DEXTROSE 5%-WATER - 50 ML IVPB SCH ×3 (01:55→17:11)
[2018-03-16] MEDS: PROPOFOL 1,000,000 MCG/100 ML VIAL IV SCH ×3 (04:00→19:00)
[2018-03-16] MEDS: FENTANYL INJECTION 500 MCG in DEXTROSE 5%-WATER - 90 ML IVPB SCH ×2 (05:00→19:00)
[2018-03-16] MEDS: HEPARIN NA (PORCINE) 5,000 UNITS/ML 1ML VIAL SQ SCH ×2 (06:07→14:20)
[2018-03-16] MEDS: NOREPINEPHRINE BITARTRATE 8,000 MCG in DEXTROSE 5%-WATER - 492 ML IV SCH (06:08)
[2018-03-16 06:11] LABS: ARTERIAL BLD GAS O2 SATURATION 97.3 % (90-98.9); ARTERIAL BLOOD GAS BASE EXCESS 4.1 meq/l (-2-2); ARTERIAL BLOOD GAS PCO2 52.7 mmHg (35-45); ARTERIAL BLOOD GAS PO2 87.7 mmHg (68-100); ARTERIAL BLOOD GAS pH 7.37 (7.35-7.45)
[2018-03-16 06:22] LABS: BASO % 0.2 % (0-2.0); EOS % 2.8 % (0-4.5); HEMATOCRIT 38.8 % (35.4-49); HEMOGLOBIN 12.9 GM/dL (11.7-16.9); LYMPH % 8.3 % (8-40); MCH 30.7 pg (25.7-33.7); MCHC 33.3 g/dl (32.0-35.9); MEAN CELL VOLUME 92.3 fl (80-96); MEAN PLT VOLUME 9.2 fl (7.5-11.1); MONO % 9.1 % (3.8-10.2); NEUT % 79.6 % (42.8-82.8); PLATELET COUNT 157 K/MM3 (134-434); RDW 13.5 % (11.9-15.9); WHITE BLOOD COUNT 13.7 K/mm3 (4.0-10.0)
[2018-03-16] MEDS: ACETAMINOPHEN 1000 MG/100 ML VIAL (NON FORMULARY) IVPB PRN (06:29)
--- NOTE | 2018-03-16 06:34 | PN ---
Physical Exam: SUBJECTIVE: Weekend events: Pt has been spiking fevers to a max of 100.9 over the weekend. Pt's blood cultures from both peripheral and central line sites were drawn. In addition, vascular duplex studies were ordered with report pending to r/o DVT as a cause of fevers. Pt also had an AXR done showing partial SBO patterning remaining. Currently pt is intubated and sedated with propofol and fentanyl and currently remains on pressors. OBJECTIVE: Vital Signs Period Temp Pulse Resp BP Sys/Ceballos Pulse Ox Last 24 Hr 99.9 F-101.2 F 69-78 12-18 93-114/47-63 94-96 GENERAL: NAD, intubated and sedated HEENT: Pupils decreased in size with minimal reactivity, NG in place with draining fluid, dry-moist mucous membranes, ETT noted Neck: R IJ line site C/D/I, minimal JVD noted LUNGS: Vent sounds transmitted with crackles and rhonchi at b/l bases. Air leak noted with each automatic breath. AC mode: TV 450, PEEP 9, FiO2 60%, RR 12 HEART: RRR, S1, S2 without murmur ABDOMEN: Soft, hypoactive BS, nondistended, midline incision C/D/I with closing panda, tenderness could not be assessed, no masses palpated, no bladder distention percussed. EXTREMITIES: 2+ DP pulses, warm, trace ankle edema. SKIN: Warm, dry, no rashes noted Laboratory Results - last 24 hr 03/15/18 03/15/18 03/16/18 05:55 05:55 05:25 WBC 13.7 H RBC 4.20 Hgb 12.9 Hct 38.8 MCV 92.3 MCH 30.7 MCHC 33.3 RDW 13.5 Plt Count 157 MPV 9.2 Neutrophils % 79.6 Lymphocytes % 8.3 D Monocytes % 9.1 D Eosinophils % 2.8 D Basophils % 0.2 Puncture Site ABG pH ABG pCO2 at Pt Temp ABG pO2 at Pt Temp ABG HCO3 ABG O2 Sat (Measured) ABG O2 Content ABG Base Excess Fernando Test O2 Delivery Device Oxygen Flow Rate Vent Rate Mechanical Rate PEEP Pressure Support Vent Sodium 140 Potassium 3.7 Chloride 103 Carbon Dioxide 33 H Anion Gap 4 L BUN 20 H Creatinine 1.0 Creat Clearance w eGFR > 60 Random Glucose 124 H D Lactic Acid 1.5 Calcium 7.2 L Phosphorus 2.4 L Magnesium 2.5 H Total Bilirubin 1.3 H D AST 35 ALT 34 Alkaline Phosphatase 57 Total Protein 4.5 L Albumin 1.8 L 03/16/18 06:00 WBC RBC Hgb Hct MCV MCH MCHC RDW Plt Count MPV Neutrophils % Lymphocytes % Monocytes % Eosinophils % Basophils % Puncture Site Arterial line ABG pH 7.37 ABG pCO2 at Pt Temp 52.7 H ABG pO2 at Pt Temp 87.7 ABG HCO3 30.0 H ABG O2 Sat (Measured) 97.3 ABG O2 Content 18.1 ABG Base Excess 4.1 H Fernando Test No Result Required. O2 Delivery Device Mech vent Oxygen Flow Rate 60 Vent Rate 12 Mechanical Rate Yes PEEP 9.0 Pressure Support Vent 420 Sodium Potassium Chloride Carbon Dioxide Anion Gap BUN Creatinine Creat Clearance w eGFR Random Glucose Lactic Acid Calcium Phosphorus Magnesium Total Bilirubin AST ALT Alkaline Phosphatase Total Protein Albumin Active Medications Generic Name Dose Route Start Last Admin Trade Name Freq PRN Reason Stop Dose Admin Acetaminophen 1,000 mg 03/15/18 10:50 03/16/18 06:29 Ofirmev Injection - IVPB 1,000 mg Q8H PRN Administration FEVER Chlorhexidine Gluconate 15 ml 03/13/18 10:00 03/15/18 22:43 Peridex - MM 15 ml BID JUDY Administration Chlorhexidine Gluconate 1 applic 03/13/18 22:00 03/15/18 22:43 Hibiclens For Decolonization - TP 1 applic HS JUDY Administration Heparin Sodium (Porcine) 5,000 unit 03/13/18 14:00 03/16/18 06:07 Heparin - SQ 5,000 unit TID JUDY Administration Propofol 1,000,000 mcg in 100 mls @ 4.736 mls/hr 03/13/18 04:00 03/16/18 06: 09 Diprivan - IV 30 mcg/kg/min TITR JUDY 14.207 mls/hr Protocol Titration 10 MCG/KG/MIN Fentanyl 500 mcg/ Dextrose 100 mls @ 10 mls/hr 03/13/18 05:15 03/16/18 05:00 IVPB 10 mls/hr TITR JUDY Administration Protocol 50 MCG/HR Norepinephrine Bitartrate 8, 500 mls @ 18.75 mls/hr 03/13/18 05:15 03/16/18 06:08 000 mcg/ Dextrose IV 6 mcg/min ASDIR JUDY 22.5 mls/hr Protocol Administration 5 MCG/MIN Dextrose/Lactated Ringer's 1,000 mls @ 125 mls/hr 03/13/18 14:30 03/15/18 14: 45 D5-Lr - IV 125 mls/hr ASDIR JUDY Administration Piperacillin Sod/Tazobactam 50 mls @ 100 mls/hr 03/13/18 18:00 03/16/18 01:55 Sod 3.375 gm/ Dextrose IVPB 100 mls/hr Q8H-IV JUDY Administration Protocol Mupirocin 1 applic 03/13/18 10:00 03/15/18 22:42 Bactroban Ointment (For Decolonization) - NS 03/17/18 21:59 1 applic BID JUDY Administration Ondansetron HCl 4 mg 03/13/18 04:30 Zofran Injection IVPUSH Q6H PRN NAUSEA Pantoprazole Sodium 40 mg 03/13/18 10:00 03/15/18 09:12 Protonix Iv IVPUSH 40 mg DAILY JUDY Administration ASSESSMENT/PLAN: 1) Septic shock 2/2 to bowel ischemia in addition to PNA --Suspected aspiration PNA as evident from sore throat upon admission --Levophed currently 8mcg/min; MAP goal still 65-70 to prevent relative hypotension --Continue Zosyn 3.375gm q8h (Day 4) --ID on board --F/u repeat cultures --CVP currently high at 16-17 2) Acute hypoxic respiratory failure --3/4 criteria for ARDS met (no echo thus far) --Decrease LR rate; CVP goal should shift lower than 8 at this point --Continue intubation with AC mode vent; would decrease PEEP and TV as tolerated due to increased risk of barotrauma (goal Plateau pressures <30) --SpO2 to be maintained >90% --Not a candidate for wean trials; continue sedation with propofol and fentanyl --Possibility for sedation vacations when more stable 3) Fevers --Recent fever spikes suggesting another infectious process is occurring --f/u Vascular duplex report to r/o DVT --CTAP and CT chest with IV and oral contrast to be performed (r/o pericolonic abscess or anastomosis leak) --f/u repeat peripheral blood cultures and central line cultures --[facility] 3) ANATOLIY --Prerenal in etiology --FENa 0.0% --RESOLVED (BUN/Cr 18/0.9) FEN: Fluids: D5LR @50cc/hr Electrolyte abnormalities: None today Nutrition: NPO; I&S currently PPX: DVT - Heparin Sq GI - Protonix 40mg IVP daily Dispo: Continue ICU monitoring Case discussed with Dr. Thorne and ICU team Mukul White DO - IM PGY-1 Visit type - Emergency Visit Emergency Visit: No - New Patient This patient is new to me today: No - Critical Care Critical Care patient: Yes Total Critical Care Time (in minutes): 35 Critical Care Statement: The care of this patient involved high complexity decision making to prevent further life threatening deterioration of the patient 's condition and/or to evaluate & treat vital organ system(s) failure or risk of failure.
[2018-03-16 06:42] LABS: ALBUMIN 1.7 g/dl (3.4-5.0); ANION GAP 4 (8-16); BILIRUBIN,TOTAL 1.5 mg/dL (0.2-1.0); BLOOD UREA NITROGEN 18 mg/dL (7-18); CALCIUM 7.2 mg/dL (8.5-10.1); CHLORIDE 104 mmol/L (98-107); CO2 32 mmol/L (21-32); CREATININE 0.9 mg/dL (0.7-1.3); GLUCOSE,RANDOM 135 mg/dL (74-106); MAGNESIUM 2.5 mg/dL (1.8-2.4); PHOSPHOROUS 2.7 mg/dL (2.5-4.9); POTASSIUM 3.9 mmol/L (3.5-5.1); SGOT/AST 60 U/L (15-37); SGPT/ALT 57 U/L (12-78); SODIUM 140 mmol/L (136-145); TOT PROT 4.5 g/dl (6.4-8.2)
[2018-03-16 06:43] LABS: ALK PHOS 66 U/L (45-117)
[2018-03-16] MEDS ORDERED: DEXTROSE 5%-LACTATED RINGERS 1,000 ML IV SCH ×2 (08:09→08:12)
--- NOTE | 2018-03-16 08:14 | PN ---
Progress Note (short form) - Note Progress Note: S: -- Low grade temps overnight, will get CT chest/abd -- Readjusted ETT for better seal -- MAP 60s on Levo 8 -- CVP >12 this AM, turned down fluid rate from 125 --> 50 O: Vital Signs Period Temp Pulse Resp BP Sys/Ceballos Pulse Ox Last 24 Hr 99.9 F-100.9 F 69-83 12-18 93-114/47-63 94-96 Tele - No events GEN: Intubated, sedated HEENT: PERRL, no JVD CV: S1, S2, RRR LUNG: CTABL bilateral breath sounds ABD: Soft, NT, ND, normaoctive BS MSK: No edema, no erythema NEURO: Sedated A/P: 82yo relatively healthy M presented w/ SBO from an incarcerated R inguinal hernia after weight training # Septic Shock now w/ recurrent fevers -- Levophed 8. Zosyn day 5 (since ). Sepsis was likely initially caused by infarcted bowel. But continues to have fevers + wbc after surgery. Could be from B/L pna (+sputum cx) vs intra-abdominal collection vs new source like ? line infection. Repeat Bcx. Will get repeat CT abd/chest to check for source. IV Tylenol prn. # Mesenteric Ischemia w/ SBO -- POD2 from partially infarcted terminal ileum resection. This portion of small bowel appears to have indirectly herniated through the R inguinal canal leading to incarceration # Acute Hypoxic RF w/ new ?ARDS -- Presented hypoxic likely from aspiration pneumonia from constant emesis. Has +sputum cx. However, patient continues to require mech vent w/ 60% FiO2. Possible developing ARDS. PF ratio 147. B/L fluffy infiltrate on CXR. Need echo to r/o HF # Prerenal ANATOLIY -- FeNa <0.1 c/w prerenal. Improved w/ IVF. # Indirect Hyperbili -- Likely from low perfusion to liver from hypotension. Will improve w/ IVF and pressors # B/L inguinal hernia -- Likely caused by strenuous activity at home. Avoid this upon d/c to prevent further incarcerations. Hernias were reduced in OR, but will need to fix defect eventually # FEN/PPx -- D5Lr at 50cchr. Can start 10cc/hr feeds if off pressors. HSQ tid. PPI due to septic shock. # Dispo -- Wean off pressors. Remains intubated. Remain in ICU. Hailee Hummel MD pGY1 ICU Resident
[2018-03-16] MEDS: PANTOPRAZOLE SODIUM 40 MG VIAL IVPUSH SCH (09:09)
[2018-03-16] MEDS: CHLORHEXIDINE GLUCONATE 0.12% 15ML CUP MM SCH ×2 (09:14→21:44)
--- NOTE | 2018-03-16 11:19 | PN ---
Teaching Attending Note Name of Resident: Mukul White ATTENDING PHYSICIAN STATEMENT I saw and evaluated the patient. I reviewed the resident's note and discussed the case with the resident. I agree with the resident's findings and plan as documented. SUBJECTIVE: cont to have fevers since yesterday . No events over night . Air leak was fixed this am OBJECTIVE: Intubated, sedated, comfortable., round equal pupils 1 mm in diameter, minimally reactive to light CV: RRR. Lungs; clear anteriorly, decreased breath sounds at bases Abd: absent BS. mid line wound with panda, no discharge. L inguinal hernia with no skin changes. no extension of content to scrotum. Ext: no edema or erythema scrotal edema ASSESSMENT AND PLAN: 82 y/o gentleman with h/o DJD, GERD, diverticulosis and other medical problems who presented with abd pain and was found to have SBO with bowel ischemia and developed acute resp failure and septic shock. 1- Acute hypoxic resp failure. due to severe sepsis and b/l PNA /ARDS - cont Abx - mechanical ventilation and sedation ( still requiring 60% FIO2 and 9 of PEEP ) 2- Septic shock. Currently on 8 mcg of levophed . Map 65. Cont to have fever - check CT of Abd/pelvis with po and IV contrast to r/o leak or abscess - follow repeat blood cx from central line and periphery. - No DVT on US to explain fever - cont zosyn - COnt IVF 3- SBO and bowel ischemia: unclear etiology. - POD 3 s/p exploratory laparotomy and partial small bowel resection. - L inguinal hernia to be repaired at a later time - no growth form peritoneal fluid 4- ANATOLIY:resolved . -monitor renal function with IV contrast. 5- PX: PPI and SQ heparin. Critical Care Total Critical Care Time (in minutes): 30 Critical Care Statement: The care of this patient involved high complexity decision making to prevent further life threatening deterioration of the patient 's condition and/or to evaluate & treat vital organ system(s) failure or risk of failure.
[2018-03-16] MEDS: MUPIROCIN 2% TOPICAL OINTMENT FOR DECOLONIZATION NS SCH ×2 (11:30→21:44)
--- NOTE | 2018-03-16 12:06 | PN ---
Progress Note, Physician Chief Complaint: SBO History of Present Illness: 82 yo male PMH BPH, degernerative disc disease (cervical), diverticulosis, hemorrhoids presented to the ED with abdominal pain and vomiting for on day. He reports that he was weight training yesterday and developed some groin pain. He remains sedated and intubated in the ICU post op give poor saturation preop. He on low dose vasopressor support overnight. - Current Medication List Current Medications: Active Medications Acetaminophen (Ofirmev Injection -) 1,000 mg IVPB Q8H PRN PRN Reason: FEVER Last Admin: 03/16/18 06:29 Dose: 1,000 mg Chlorhexidine Gluconate (Peridex -) 15 ml MM BID JUDY Last Admin: 03/16/18 09:14 Dose: 15 ml Chlorhexidine Gluconate (Hibiclens For Decolonization -) 1 applic TP HS JUDY Last Admin: 03/15/18 22:43 Dose: 1 applic Heparin Sodium (Porcine) (Heparin -) 5,000 unit SQ TID JUDY Last Admin: 03/16/18 06:07 Dose: 5,000 unit Propofol (Diprivan -) 1,000,000 mcg in 100 mls @ 4.736 mls/hr IV TITR JUDY; 10 MCG/KG/MIN PRN Reason: Protocol Last Admin: 03/16/18 10:21 Dose: 25 mcg/kg/min, 11.839 mls/hr Fentanyl 500 mcg/ Dextrose 100 mls @ 10 mls/hr IVPB TITR JUDY; 50 MCG/HR PRN Reason: Protocol Last Admin: 03/16/18 05:00 Dose: 10 mls/hr Norepinephrine Bitartrate 8, (000 mcg/ Dextrose) 500 mls @ 18.75 mls/hr IV ASDIR JUDY; 5 MCG/MIN PRN Reason: Protocol Last Admin: 03/16/18 06:08 Dose: 6 mcg/min, 22.5 mls/hr Piperacillin Sod/Tazobactam (Sod 3.375 gm/ Dextrose) 50 mls @ 100 mls/hr IVPB Q8H-IV JUDY PRN Reason: Protocol Last Admin: 03/16/18 09:13 Dose: 100 mls/hr Dextrose/Lactated Ringer's (D5-Lr -) 1,000 mls @ 100 mls/hr IV ASDIR JUDY Last Admin: 03/16/18 09:03 Dose: 100 mls/hr Mupirocin (Bactroban Ointment (For Decolonization) -) 1 applic NS BID [facility] Stop: 03/17/18 21:59 Last Admin: 03/16/18 11:30 Dose: 1 applic Ondansetron HCl (Zofran Injection) 4 mg IVPUSH Q6H PRN PRN Reason: NAUSEA Pantoprazole Sodium (Protonix Iv) 40 mg IVPUSH DAILY [facility] Last Admin: 03/16/18 09:09 Dose: 40 mg - Objective Vital Signs: Vital Signs Temperature 99.7 F H 03/16/18 10:00 Pulse Rate 69 03/16/18 10:00 Respiratory Rate 14 03/16/18 11:21 Blood Pressure 94/50 03/16/18 10:00 O2 Sat by Pulse Oximetry (%) 94 L 03/16/18 09:14 Vital Signs Period Temp Pulse Resp BP Sys/Ceballos Pulse Ox Last 24 Hr 99.7 F-100.9 F 69-83 11-18 93-114/47-63 94-95 Intake & Output 03/15/18 03/16/18 03/16/18 23:59 07:59 15:59 Intake Total 3049.2 Output Total 750 Balance 2299.2 Weight 183 lb Intake: IV 2699.2 D5-Lr - 1,000 ml @ 125 2000 mls/hr IV ASDIR [facility] Rx#: [id number] DIPRIVAN - 1,000,000 mcg 199.2 In 100 ml @ 10 MCG/KG/MIN 4.736 mls/hr IV TITR [facility] Rx#:[id number] Levophed - 8,000 Mcg In 340 D5w - 492 ml @ 5 MCG/MIN 18.75 mls/hr IV ASDIR [facility] Rx#:[id number] fentanyl 160 IVPB 350 Output: Gastric Drainage 0 Urine 750 Quintero 750 Other: Voiding Method Indwelling Catheter Indwelling Catheter Bowel Movement Yes: soft, small # Bowel Movements 1 Weight Measurement Method Built in Bedscale Constitutional: Yes: Well Nourished, No Distress, Calm Eyes: Yes: Conjunctiva Clear, EOM Intact HENT: Yes: Atraumatic, Normocephalic Neck: Yes: Supple, Trachea Midline Cardiovascular: Yes: Regular Rate and Rhythm, S1, S2 Respiratory: Yes: Regular, Mechanically Ventilated, Rales, Rhonchi Gastrointestinal: Yes: Normal Bowel Sounds, Soft ...Rectal Exam: Yes: Deferred Genitourinary: No: CVA Tenderness - Left, CVA Tenderness - Right Extremities: No: Cool, Cyanosis Edema: Yes Edema: LUE: Trace, RUE: Trace, LLE: 1+, RLE: 1+ Peripheral Pulses WNL: Yes Peripheral Pulses: Left Doralis Pedis: 2+, Right Dorsalis Pedis: 2+ Neurological: Yes: Alert, Oriented Psychiatric: Yes: Alert, Oriented Labs: CBC, BMP 03/16/18 05:25 03/16/18 05:25 INR, PTT INR 1.19 (0.82-1.09) H 03/12/18 20:01 - ....Imaging X-ray: Report Reviewed, Image Reviewed Problem List - Problems (1) Strangulated inguinal hernia Assessment/Plan: 82yo male MMP relatively healthy with SBO abdominal pain non reducible LIH, Lactic acid 3.4->6.9->1.8, Tbili >3, WBC 17->13, CTscan with SBO, unclear transition point and no clear bowel ischemia identified. Bibasilar pulmonary consolidation and hoarsness may be a sequela of an aspiration. POD#4 s/p Exploratory Laparotomy, segmental ressection of SB and primary stapled anastomosis for strangulated RIH. spiking fevers 101, likely worsening pneumonia. Patient had 2 soft bowel movements. ICU management Agree with repeat scan of chest, abdomen and pelvis with PO and IV contrast May trickle feed via NTG after imaging if off vasopressor support continue quintero empiric IV antibiotics GI and DVT prophylaxsis will follow This patient is critically ill. Time spent reviewing chart, examining patient, talking with providers and/or family and documentation is 45 minutes Code(s): K40.30 - UNIL INGUINAL HERNIA, W OBST, W/O GANGR, NOT SPCF RECUR (2) Incarcerated left inguinal hernia Code(s): K40.30 - UNIL INGUINAL HERNIA, W OBST, W/O GANGR, NOT SPCF RECUR (3) BPH (benign prostatic hyperplasia) Code(s): N40.0 - BENIGN PROSTATIC HYPERPLASIA WITHOUT LOWER URINRY TRACT SYMP Qualifiers: Lower urinary tract symptom presence: symptoms present Lower urinary tract symptom detail: urinary frequency Qualified Code(s): N40.1 - Benign prostatic hyperplasia with lower urinary tract symptoms; R35.0 - Frequency of micturition ; R35.0 - Frequency of micturition (4) DDD (degenerative disc disease), cervical Code(s): M50.30 - OTHER CERVICAL DISC DEGENERATION, UNSP CERVICAL REGION (5) SBO (small bowel obstruction) Code(s): K56.609 - UNSP INTESTNL OBST, UNSP TO PARTIAL VERSUS COMPLETE OBST (6) Aspiration pneumonia of both lower lobes due to gastric secretions Code(s): J69.0 - PNEUMONITIS DUE TO INHALATION OF FOOD AND VOMIT
--- NOTE | 2018-03-16 13:49 | PN ---
Teaching Attending Note Name of Resident: Hailee Hummel ATTENDING PHYSICIAN STATEMENT I saw and evaluated the patient. I reviewed the resident's note and discussed the case with the resident. I agree with the resident's findings and plan as documented. SUBJECTIVE: Patient seen and examined in the ICU. Remains intubated, sedated. Currently on NE @ 8 cmq for hemodynamic support. Fevers overnight. For CT evaluation. Intake & Output 03/13/18 03/14/18 03/15/18 03/16/18 23:59 23:59 23:59 23:59 Intake Total 5437.5 7025.4 4429.5 Output Total 5435 2085 1100 Balance 2.5 4940.4 3329.5 Weight 177 lb 179 lb 178 lb 12.8 oz 183 lb Last Vital Signs Temp Pulse Resp BP Pulse Ox 99.5 F 93 H 18 103/53 94 L 03/16/18 12:00 03/16/18 12:00 03/16/18 12:00 03/16/18 12:00 03/16/18 09:14 Active Medications Acetaminophen (Ofirmev Injection -) 1,000 mg IVPB Q8H PRN PRN Reason: FEVER Last Admin: 03/16/18 06:29 Dose: 1,000 mg Chlorhexidine Gluconate (Peridex -) 15 ml MM BID JUDY Last Admin: 03/16/18 09:14 Dose: 15 ml Chlorhexidine Gluconate (Hibiclens For Decolonization -) 1 applic TP HS JUDY Last Admin: 03/15/18 22:43 Dose: 1 applic Heparin Sodium (Porcine) (Heparin -) 5,000 unit SQ TID JUDY Last Admin: 03/16/18 06:07 Dose: 5,000 unit Propofol (Diprivan -) 1,000,000 mcg in 100 mls @ 4.736 mls/hr IV TITR JUDY; 10 MCG/KG/MIN PRN Reason: Protocol Last Admin: 03/16/18 10:21 Dose: 25 mcg/kg/min, 11.839 mls/hr Fentanyl 500 mcg/ Dextrose 100 mls @ 10 mls/hr IVPB TITR JUDY; 50 MCG/HR PRN Reason: Protocol Last Admin: 03/16/18 05:00 Dose: 10 mls/hr Norepinephrine Bitartrate 8, (000 mcg/ Dextrose) 500 mls @ 18.75 mls/hr IV ASDIR JUDY; 5 MCG/MIN PRN Reason: Protocol Last Admin: 03/16/18 06:08 Dose: 6 mcg/min, 22.5 mls/hr Piperacillin Sod/Tazobactam (Sod 3.375 gm/ Dextrose) 50 mls @ 100 mls/hr IVPB Q8H-IV JUDY PRN Reason: Protocol Last Admin: 03/16/18 09:13 Dose: 100 mls/hr Dextrose/Lactated Ringer's (D5-Lr -) 1,000 mls @ 50 mls/hr IV ASDIR JUDY Mupirocin (Bactroban Ointment (For Decolonization) -) 1 applic NS BID [facility] Stop: 03/17/18 21:59 Last Admin: 03/16/18 11:30 Dose: 1 applic Ondansetron HCl (Zofran Injection) 4 mg IVPUSH Q6H PRN PRN Reason: NAUSEA Pantoprazole Sodium (Protonix Iv) 40 mg IVPUSH DAILY [facility] Last Admin: 03/16/18 09:09 Dose: 40 mg Gen: intubated, sedated Heart: RRR Lung: scattered rhonchi Abd: soft, dressings intact, (+) BS Ext: + edema Laboratory Results - last 24 hr 03/16/18 03/16/18 03/16/18 05:25 05:25 06:00 WBC 13.7 H RBC 4.20 Hgb 12.9 Hct 38.8 MCV 92.3 MCH 30.7 MCHC 33.3 RDW 13.5 Plt Count 157 MPV 9.2 Neutrophils % 79.6 Lymphocytes % 8.3 D Monocytes % 9.1 D Eosinophils % 2.8 D Basophils % 0.2 Puncture Site Arterial line ABG pH 7.37 ABG pCO2 at Pt Temp 52.7 H ABG pO2 at Pt Temp 87.7 ABG HCO3 30.0 H ABG O2 Sat (Measured) 97.3 ABG O2 Content 18.1 ABG Base Excess 4.1 H Fernando Test No Result Required. O2 Delivery Device Mech vent Oxygen Flow Rate 60 Vent Rate 12 Mechanical Rate Yes PEEP 9.0 Pressure Support Vent 420 Sodium 140 Potassium 3.9 Chloride 104 Carbon Dioxide 32 Anion Gap 4 L BUN 18 Creatinine 0.9 Creat Clearance w eGFR > 60 Random Glucose 135 H Calcium 7.2 L Phosphorus 2.7 Magnesium 2.5 H Total Bilirubin 1.5 H AST 60 H D ALT 57 D Alkaline Phosphatase 66 Total Protein 4.5 L Albumin 1.7 L IMP: Acute Hypoxic Respiratory Failure Pneumonia - ?Aspiration R/O ARDS Incarcerated Inguinal Hernia s/p ex-lap/segmental terminal ileum resection/primary anastamosis 03/13 Septic Shock Acute Kidney Injury improving Lactic Acidosis Diverticulosis BPH - For CT evaluation - continue antibiotics per ID - f/u cultures - Decrease IVF due to elevated CVP - taper pressors to maintain MAP >65 - will likely need lasix once hemodynamically stable - monitor urine output, creatinine - low tidal volume ventilation - keep Pplat <30 - taper FiO2, PEEP to keep SpO2 >90% - DVT/GI prophylaxis - continue ICU monitoring Dr Moreno Critical care time spent in reviewing chart, evaluating patient and formulating plan 35 min
[2018-03-16] MEDS: DEXTROSE 5%-LACTATED RINGERS 1,000 ML IV SCH (16:20)
--- NOTE | 2018-03-16 17:28 | PN ---
Progress Note, Physician History of Present Illness: patient starting to spike fevers all cx send patient continues to be intubated and sedated moving fevers have been continuos - Current Medication List Current Medications: Active Medications Acetaminophen (Ofirmev Injection -) 1,000 mg IVPB Q8H PRN PRN Reason: FEVER Last Admin: 03/16/18 06:29 Dose: 1,000 mg Chlorhexidine Gluconate (Peridex -) 15 ml MM BID JUDY Last Admin: 03/16/18 09:14 Dose: 15 ml Chlorhexidine Gluconate (Hibiclens For Decolonization -) 1 applic TP HS JUDY Last Admin: 03/15/18 22:43 Dose: 1 applic Heparin Sodium (Porcine) (Heparin -) 5,000 unit SQ TID JUDY Last Admin: 03/16/18 14:20 Dose: 5,000 unit Propofol (Diprivan -) 1,000,000 mcg in 100 mls @ 4.736 mls/hr IV TITR JUDY; 10 MCG/KG/MIN PRN Reason: Protocol Last Admin: 03/16/18 10:21 Dose: 25 mcg/kg/min, 11.839 mls/hr Fentanyl 500 mcg/ Dextrose 100 mls @ 10 mls/hr IVPB TITR JUDY; 50 MCG/HR PRN Reason: Protocol Last Admin: 03/16/18 05:00 Dose: 10 mls/hr Norepinephrine Bitartrate 8, (000 mcg/ Dextrose) 500 mls @ 18.75 mls/hr IV ASDIR JUDY; 5 MCG/MIN PRN Reason: Protocol Last Admin: 03/16/18 06:08 Dose: 6 mcg/min, 22.5 mls/hr Piperacillin Sod/Tazobactam (Sod 3.375 gm/ Dextrose) 50 mls @ 100 mls/hr IVPB Q8H-IV JUDY PRN Reason: Protocol Last Admin: 03/16/18 17:11 Dose: 100 mls/hr Dextrose/Lactated Ringer's (D5-Lr -) 1,000 mls @ 50 mls/hr IV ASDIR JUDY Last Admin: 03/16/18 16:20 Dose: 50 mls/hr Mupirocin (Bactroban Ointment (For Decolonization) -) 1 applic NS BID JUDY Stop: 03/17/18 21:59 Last Admin: 03/16/18 11:30 Dose: 1 applic Ondansetron HCl (Zofran Injection) 4 mg IVPUSH Q6H PRN PRN Reason: NAUSEA Pantoprazole Sodium (Protonix Iv) 40 mg IVPUSH DAILY JUDY Last Admin: 03/16/18 09:09 Dose: 40 mg - Objective Vital Signs: Vital Signs Temperature 99.9 F H 03/16/18 16:00 Pulse Rate 83 03/16/18 16:00 Respiratory Rate 19 03/16/18 16:18 Blood Pressure 86/57 03/16/18 16:00 O2 Sat by Pulse Oximetry (%) 94 L 03/16/18 09:45 Constitutional: Yes: Other Cardiovascular: Yes: Regular Rate and Rhythm, Tachycardia Respiratory: Yes: Intubated, Mechanically Ventilated Gastrointestinal: Yes: Soft, Other (absent bowel sounds) Genitourinary: Yes: Scott Present Musculoskeletal: Yes: WNL Extremities: Yes: WNL Wound/Incision: Yes: Clean/Dry Neurological: Yes: Other Psychiatric: Yes: Other Labs: CBC, BMP 03/16/18 05:25 03/16/18 05:25 INR, PTT INR 1.19 (0.82-1.09) H 03/12/18 20:01 Assessment/Plan Problem List - Problems (1) Strangulated inguinal hernia Pulmonary evaluation - weaning today? GI Evaluation - Tbili 3.5, 3.6 BP goal MAP 65-70, has a stapled small bowel anastomosis avoid lwo flow states will follow Code(s): K40.30 - UNIL INGUINAL HERNIA, W OBST, W/O GANGR, NOT SPCF RECUR (2) Incarcerated left inguinal hernia Code(s): K40.30 - UNIL INGUINAL HERNIA, W OBST, W/O GANGR, NOT SPCF RECUR (3) BPH (benign prostatic hyperplasia) Code(s): N40.0 - BENIGN PROSTATIC HYPERPLASIA WITHOUT LOWER URINRY TRACT SYMP Qualifiers: Lower urinary tract symptom presence: symptoms present Lower urinary tract symptom detail: urinary frequency Qualified Code(s): N40.1 - Benign prostatic hyperplasia with lower urinary tract symptoms; R35.0 - Frequency of micturition ; R35.0 - Frequency of micturition (4) DDD (degenerative disc disease), cervical Code(s): M50.30 - OTHER CERVICAL DISC DEGENERATION, UNSP CERVICAL REGION (5) SBO (small bowel obstruction) Code(s): K56.609 - UNSP INTESTNL OBST, UNSP TO PARTIAL VERSUS COMPLETE OBST (6) Aspiration pneumonia of both lower lobes due to gastric secretions Code(s): J69.0 - PNEUMONITIS DUE TO INHALATION OF FOOD AND VOMIT plan continue close monitoring resp support vent support continue abx rest as per icu await for sputum cx reports if patient continues to spike then tomorrow get a ct scan await for the cx send from today cc time 40 min
--- NOTE | 2018-03-16 17:31 | PN ---
Progress Note, Physician History of Present Illness: patient continues to spike fevers still with intubation and sedation sputum cx noted family in room discussed in detail with the family - Current Medication List Current Medications: Active Medications Acetaminophen (Ofirmev Injection -) 1,000 mg IVPB Q8H PRN PRN Reason: FEVER Last Admin: 03/16/18 06:29 Dose: 1,000 mg Chlorhexidine Gluconate (Peridex -) 15 ml MM BID JUDY Last Admin: 03/16/18 09:14 Dose: 15 ml Chlorhexidine Gluconate (Hibiclens For Decolonization -) 1 applic TP HS JUDY Last Admin: 03/15/18 22:43 Dose: 1 applic Heparin Sodium (Porcine) (Heparin -) 5,000 unit SQ TID JUDY Last Admin: 03/16/18 14:20 Dose: 5,000 unit Propofol (Diprivan -) 1,000,000 mcg in 100 mls @ 4.736 mls/hr IV TITR JUDY; 10 MCG/KG/MIN PRN Reason: Protocol Last Admin: 03/16/18 10:21 Dose: 25 mcg/kg/min, 11.839 mls/hr Fentanyl 500 mcg/ Dextrose 100 mls @ 10 mls/hr IVPB TITR JUDY; 50 MCG/HR PRN Reason: Protocol Last Admin: 03/16/18 05:00 Dose: 10 mls/hr Norepinephrine Bitartrate 8, (000 mcg/ Dextrose) 500 mls @ 18.75 mls/hr IV ASDIR JUDY; 5 MCG/MIN PRN Reason: Protocol Last Admin: 03/16/18 06:08 Dose: 6 mcg/min, 22.5 mls/hr Piperacillin Sod/Tazobactam (Sod 3.375 gm/ Dextrose) 50 mls @ 100 mls/hr IVPB Q8H-IV JUDY PRN Reason: Protocol Last Admin: 03/16/18 17:11 Dose: 100 mls/hr Dextrose/Lactated Ringer's (D5-Lr -) 1,000 mls @ 50 mls/hr IV ASDIR JUDY Last Admin: 03/16/18 16:20 Dose: 50 mls/hr Mupirocin (Bactroban Ointment (For Decolonization) -) 1 applic NS BID JUDY Stop: 03/17/18 21:59 Last Admin: 03/16/18 11:30 Dose: 1 applic Ondansetron HCl (Zofran Injection) 4 mg IVPUSH Q6H PRN PRN Reason: NAUSEA Pantoprazole Sodium (Protonix Iv) 40 mg IVPUSH DAILY JUDY Last Admin: 03/16/18 09:09 Dose: 40 mg - Objective Vital Signs: Vital Signs Temperature 99.9 F H 03/16/18 16:00 Pulse Rate 83 03/16/18 16:00 Respiratory Rate 19 03/16/18 16:18 Blood Pressure 86/57 03/16/18 16:00 O2 Sat by Pulse Oximetry (%) 94 L 03/16/18 09:45 Constitutional: Yes: No Distress Cardiovascular: Yes: Regular Rate and Rhythm, Tachycardia Respiratory: Yes: Intubated, Mechanically Ventilated Gastrointestinal: Yes: Soft, Other (absent bowel sounds) Genitourinary: Yes: Scott Present Musculoskeletal: Yes: WNL Extremities: Yes: WNL Wound/Incision: Yes: Clean/Dry Neurological: Yes: Other (alert when off the sedation) Labs: CBC, BMP 03/16/18 05:25 03/16/18 05:25 INR, PTT INR 1.19 (0.82-1.09) H 03/12/18 20:01 - ....Imaging Cat Scan: Report Reviewed, Image Reviewed Assessment/Plan Problem List - Problems (1) Strangulated inguinal hernia Pulmonary evaluation - weaning today? GI Evaluation - Tbili 3.5, 3.6 BP goal MAP 65-70, has a stapled small bowel anastomosis avoid lwo flow states will follow Code(s): K40.30 - UNIL INGUINAL HERNIA, W OBST, W/O GANGR, NOT SPCF RECUR (2) Incarcerated left inguinal hernia Code(s): K40.30 - UNIL INGUINAL HERNIA, W OBST, W/O GANGR, NOT SPCF RECUR (3) BPH (benign prostatic hyperplasia) Code(s): N40.0 - BENIGN PROSTATIC HYPERPLASIA WITHOUT LOWER URINRY TRACT SYMP Qualifiers: Lower urinary tract symptom presence: symptoms present Lower urinary tract symptom detail: urinary frequency Qualified Code(s): N40.1 - Benign prostatic hyperplasia with lower urinary tract symptoms; R35.0 - Frequency of micturition ; R35.0 - Frequency of micturition (4) DDD (degenerative disc disease), cervical Code(s): M50.30 - OTHER CERVICAL DISC DEGENERATION, UNSP CERVICAL REGION (5) SBO (small bowel obstruction) Code(s): K56.609 - UNSP INTESTNL OBST, UNSP TO PARTIAL VERSUS COMPLETE OBST (6) Aspiration pneumonia of both lower lobes due to gastric secretions Code(s): J69.0 - PNEUMONITIS DUE TO INHALATION OF FOOD AND VOMIT plan continue close monitoring resp support vent support continue abx rest as per icu sputum cx report noted still awaiting identification of the organism rest cx noted cc time [address] scan noted await for final reporting but looking at the ct from before and now patient needs thoracocetesis rest continue current mgmt
[2018-03-16] MEDS ORDERED: fentaNYL CITRATE 250 MCG/5 ML VIAL ONE (20:22)
[2018-03-16] MEDS: CHLORHEXIDINE GLUCONATE 4% CLEANSER FOR DECOLONIZATION TP SCH (21:44)
[2018-03-17] MEDS: PIPERACILLIN/TAZOB 3.375 GM 3.375 GM in DEXTROSE 5%-WATER - 50 ML IVPB SCH ×3 (01:09→12:50)
[2018-03-17] MEDS: ACETAMINOPHEN 1000 MG/100 ML VIAL (NON FORMULARY) IVPB PRN ×3 (01:09→22:39)
[2018-03-17] MEDS: PROPOFOL 1,000,000 MCG/100 ML VIAL IV SCH ×2 (03:00→20:00)
[2018-03-17] MEDS: NOREPINEPHRINE BITARTRATE 8,000 MCG in DEXTROSE 5%-WATER - 492 ML IV SCH ×2 (06:25→09:00)
[2018-03-17] MEDS: FENTANYL INJECTION 500 MCG in DEXTROSE 5%-WATER - 90 ML IVPB SCH (06:26)
[2018-03-17 07:22] LABS: HEMATOCRIT 40.7 % (35.4-49); HEMOGLOBIN 13.5 GM/dL (11.7-16.9); MCH 30.6 pg (25.7-33.7); MCHC 33.1 g/dl (32.0-35.9); MEAN CELL VOLUME 92.2 fl (80-96); MEAN PLT VOLUME 9.2 fl (7.5-11.1); PLATELET COUNT 186 K/MM3 (134-434); RBC 4.41 M/mm3 (4.00-5.60); RDW 13.7 % (11.9-15.9); WHITE BLOOD COUNT 10.9 K/mm3 (4.0-10.0)
[2018-03-17 07:57] LABS: CHLORIDE 105 mmol/L (98-107); POTASSIUM 3.9 mmol/L (3.5-5.1); SODIUM 140 mmol/L (136-145)
[2018-03-17] MEDS ORDERED: DEXTROSE 5%-WATER - 100 ML IVPB ONE (08:00)
[2018-03-17] MEDS ORDERED: PIPERACILLIN/TAZOBACTAM 3.375 GM VIAL IVPB ONE (08:00)
--- NOTE | 2018-03-17 08:12 | PN ---
Progress Note (short form) - Note Progress Note: S: -- Low grade temps continue. -- On low dose levo -- CT chest shows b/l effusions. Going for tap today. 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 POD4 from resection. But continues to have fevers. Repeat CT chest/abd shows likely source is b/l pleural effusions w/ compressed lung. ?Empyema. Plan for pleurocentesis today. IV Tylenol prn. Zosyn day 6 (since ). # Acute Hypoxic RF from bilateral PNA -- Presented hypoxic. Suspected aspiration pneumonia from constant emesis. Has + sputum cx. New CT chest shows possible R sided loculated component. Going for pleural tap today. More likely PNA is bilateral rather than ARDS. # Prerenal ANATOLIY -- FeNa <0.1 c/w prerenal. Improved w/ IVF. # Transaminitis -- Likely from low perfusion to liver. Can get ultrasound of gallbladder to ensure no abnormalities # B/L inguinal hernia -- Likely caused by strenuous activity at home. Avoid this upon d/c to prevent further incarcerations. Hernias were reduced in OR, but will need to fix defect eventually # FEN/PPx -- D5Lr at 50cchr. 10cc/hr feeds. HSQ tid. PPI due to septic shock. # Dispo -- Wean off pressors. Pleural tap. Remain in ICU Hailee Hummel MD [id number] ICU Resident
[2018-03-17 08:25] LABS: ALBUMIN 1.6 g/dl (3.4-5.0); ALK PHOS 69 U/L (45-117); ANION GAP 6 (8-16); BILIRUBIN,TOTAL 1.8 mg/dL (0.2-1.0); BLOOD UREA NITROGEN 23 mg/dL (7-18); CALCIUM 7.1 mg/dL (8.5-10.1); CO2 29 mmol/L (21-32); CREATININE 0.8 mg/dL (0.7-1.3); GLUCOSE,RANDOM 105 mg/dL (74-106); MAGNESIUM 2.3 mg/dL (1.8-2.4); PHOSPHOROUS 2.5 mg/dL (2.5-4.9); SGOT/AST 201 U/L (15-37); SGPT/ALT 147 U/L (12-78); TOT PROT 4.4 g/dl (6.4-8.2)
[2018-03-17 09:22] LABS: URINE APPEARANCE SLCLOUDY; URINE BILIRUBIN NEGATIVE (<2.0 mg/dL); URINE GLUCOSE (UA) NEGATIVE (NEGATIVE); URINE KETONE NEGATIVE (NEGATIVE); URINE LEUK ESTERASE NEGATIVE (NEGATIVE); URINE NITRITE NEGATIVE (NEGATIVE); URINE UROBILINOGEN NEGATIVE mg/dL (0.2-1.0)
[2018-03-17 09:25] LABS: URINE COLOR DK YELLOW; URINE PROTEIN 2+ (NEGATIVE)
[2018-03-17 09:28] LABS: EPI CELLS RARE /HPF (FEW); URINE MUCUS RARE
[2018-03-17] MEDS ORDERED: DEXTROSE 50%-WATER - 25 GM/50 ML VIAL ONE (09:43)
[2018-03-17] MEDS: MUPIROCIN 2% TOPICAL OINTMENT FOR DECOLONIZATION NS SCH (09:46)
[2018-03-17] MEDS: PANTOPRAZOLE SODIUM 40 MG VIAL IVPUSH SCH (09:46)
[2018-03-17] MEDS: CHLORHEXIDINE GLUCONATE 0.12% 15ML CUP MM SCH ×3 (09:47→21:24)
--- NOTE | 2018-03-17 10:43 | PN ---
Progress Note, Physician Chief Complaint: SBO History of Present Illness: 82 yo male PMH BPH, degernerative disc disease (cervical), diverticulosis, hemorrhoids presented to the ED with abdominal pain and vomiting for on day. He reports that he was weight training yesterday and developed some groin pain. He remains sedated and intubated in the ICU post op give poor saturation preop. He on low dose vasopressor support overnight. - Current Medication List Current Medications: Active Medications Acetaminophen (Ofirmev Injection -) 1,000 mg IVPB Q8H PRN PRN Reason: FEVER Last Admin: 03/17/18 01:09 Dose: 1,000 mg Chlorhexidine Gluconate (Peridex -) 15 ml MM BID JUDY Last Admin: 03/17/18 09:48 Dose: 15 ml Chlorhexidine Gluconate (Hibiclens For Decolonization -) 1 applic TP HS JUDY Last Admin: 03/16/18 21:44 Dose: 1 applic Heparin Sodium (Porcine) (Heparin -) 5,000 unit SQ TID JUDY Last Admin: 03/16/18 14:20 Dose: 5,000 unit Propofol (Diprivan -) 1,000,000 mcg in 100 mls @ 4.736 mls/hr IV TITR JUDY; 10 MCG/KG/MIN PRN Reason: Protocol Last Admin: 03/17/18 03:00 Dose: 25 mcg/kg/min, 11.839 mls/hr Fentanyl 500 mcg/ Dextrose 100 mls @ 10 mls/hr IVPB TITR JUDY; 50 MCG/HR PRN Reason: Protocol Last Admin: 03/17/18 06:26 Dose: Not Given Norepinephrine Bitartrate 8, (000 mcg/ Dextrose) 500 mls @ 18.75 mls/hr IV ASDIR JUDY; 5 MCG/MIN PRN Reason: Protocol Last Admin: 03/17/18 09:00 Dose: 6 mcg/min, 22.5 mls/hr Piperacillin Sod/Tazobactam (Sod 3.375 gm/ Dextrose) 50 mls @ 100 mls/hr IVPB Q8H-IV JUDY PRN Reason: Protocol Last Admin: 03/17/18 09:46 Dose: 100 mls/hr Dextrose/Lactated Ringer's (D5-Lr -) 1,000 mls @ 50 mls/hr IV ASDIR JUDY Last Admin: 03/16/18 16:20 Dose: 50 mls/hr Mupirocin (Bactroban Ointment (For Decolonization) -) 1 applic NS BID [facility] Stop: 03/17/18 21:59 Last Admin: 03/17/18 09:46 Dose: 1 applic Ondansetron HCl (Zofran Injection) 4 mg IVPUSH Q6H PRN PRN Reason: NAUSEA Pantoprazole Sodium (Protonix Iv) 40 mg IVPUSH DAILY [facility] Last Admin: 03/17/18 09:46 Dose: 40 mg - Objective Vital Signs: Vital Signs Temperature 100.5 F H 03/17/18 10:00 Pulse Rate 86 03/17/18 10:00 Respiratory Rate 17 03/17/18 10:00 Blood Pressure 92/63 03/17/18 10:00 O2 Sat by Pulse Oximetry (%) 91 L 03/17/18 09:38 Vital Signs Period Temp Pulse Resp BP Sys/Ceballos Pulse Ox Last 24 Hr 99.5 F-100.9 F 71-100 10- 84-116/37-66 91-93 Intake & Output 03/16/18 03/17/18 03/17/18 23:59 07:59 15:59 Intake Total 1488.1 723.7 Output Total 300 200 Balance 1188.1 523.7 Weight 186 lb 8 oz Intake: IV 1328.1 643.7 D5-Lr - 1,000 ml @ 50 mls 200 375 /hr IV ASDIR [facility] Rx#: [id number] DIPRIVAN - 1,000,000 mcg 153.6 95.2 In 100 ml @ 10 MCG/KG/MIN 4.736 mls/hr IV TITR [facility] Rx#:[id number] Levophed - 8,000 Mcg In 78.5 157.5 D5w - 492 ml @ 5 MCG/MIN 18.75 mls/hr IV ASDIR [facility] Rx#:[id number] fentanyl 896 16 IVPB 100 50 Tube Feeding 40 30 Tube Irrigant 20 Output: Urine 300 200 Quintero 300 200 Other: Voiding Method Indwelling Catheter Indwelling Catheter Bowel Movement Yes: moderate Yes: moderate # Bowel Movements 1 1 Weight Measurement Method Built in [facility] Constitutional: Yes: Well Nourished, No Distress, Calm Eyes: Yes: Conjunctiva Clear, EOM Intact HENT: Yes: Atraumatic, Normocephalic Neck: Yes: Supple, Trachea Midline Cardiovascular: Yes: Regular Rate and Rhythm, S1, S2 Respiratory: Yes: Regular, Mechanically Ventilated, Rales, Rhonchi Gastrointestinal: Yes: Normal Bowel Sounds, Soft. No: Tenderness ...Rectal Exam: Yes: Deferred Genitourinary: No: CVA Tenderness - Left, CVA Tenderness - Right Musculoskeletal: No: Muscle Pain, Muscle Weakness Extremities: No: Cool, Cyanosis Edema: Yes Edema: LLE: 2+, RLE: 2+ Peripheral Pulses WNL: Yes Peripheral Pulses: Left Doralis Pedis: 2+, Right Dorsalis Pedis: 2+ Integumentary: No: Jaundice, Rash Wound/Incision: Yes: Clean/Dry, Well Approximated, [place] Intact, Open to air Neurological: Yes: Alert, Oriented Psychiatric: Yes: Alert, Oriented Labs: CBC,CMP WBC 10.9 K/mm3 (4.0-10.0) H 03/17/18 05:40 RBC 4.41 M/mm3 (4.00-5.60) 03/17/18 05:40 Hgb 13.5 GM/dL (11.7-16.9) 03/17/18 05:40 Hct 40.7 % (35.4-49) 03/17/18 05:40 MCV 92.2 fl (80-96) 03/17/18 05:40 MCH 30.6 pg (25.7-33.7) 03/17/18 05:40 MCHC 33.1 g/dl (32.0-35.9) 03/17/18 05:40 RDW 13.7 % (11.9-15.9) 03/17/18 05:40 Plt Count 186 K/MM3 (134-434) 03/17/18 05:40 MPV 9.2 fl (7.5-11.1) 03/17/18 05:40 Neutrophils % 79.6 % (42.8-82.8) 03/16/18 05:25 Lymphocytes % 8.3 % (8-40) D 03/16/18 05:25 Monocytes % 9.1 % (3.8-10.2) D 03/16/18 05:25 Eosinophils % 2.8 % (0-4.5) D 03/16/18 05:25 Basophils % 0.2 % (0-2.0) 03/16/18 05:25 Sodium 140 mmol/L (136-145) 03/17/18 05:40 Potassium 3.9 mmol/L (3.5-5.1) 03/17/18 05:40 Chloride 105 mmol/L (98-107) 03/17/18 05:40 Carbon Dioxide 29 mmol/L (21-32) 03/17/18 05:40 Anion Gap 6 (8-16) L 03/17/18 05:40 BUN 23 mg/dL (7-18) H D 03/17/18 05:40 Creatinine 0.8 mg/dL (0.7-1.3) 03/17/18 05:40 Creat Clearance w eGFR > 60 (>60) 03/17/18 05:40 Random Glucose 105 mg/dL (74-106) D 03/17/18 05:40 Lactic Acid 1.5 mmol/L (0.0-2.0) 03/15/18 05:55 Calcium 7.1 mg/dL (8.5-10.1) L 03/17/18 05:40 Phosphorus 2.5 mg/dL (2.5-4.9) 03/17/18 05:40 Magnesium 2.3 mg/dL (1.8-2.4) 03/17/18 05:40 Total Bilirubin 1.8 mg/dL (0.2-1.0) H 03/17/18 05:40 Direct Bilirubin 0.5 mg/dL (0.0-0.2) H 03/13/18 19:30 AST 201 U/L (15-37) H D 03/17/18 05:40 ALT 147 U/L (12-78) H D 03/17/18 05:40 Alkaline Phosphatase 69 U/L (45-117) 03/17/18 05:40 Creatine Kinase 527 IU/L (39-308) H 03/12/18 14:45 Creatine Kinase Index 1.0 % (0.0-5.0) 03/12/18 14:45 CK-MB (CK-2) 5.556 ng/mL (0.5-3.6) H 03/12/18 14:45 Troponin I 0.02 ng/ml (0.00-0.05) 03/12/18 14:45 Total Protein 4.4 g/dl (6.4-8.2) L 03/17/18 05:40 Albumin 1.6 g/dl (3.4-5.0) L 03/17/18 05:40 Lipase 84 U/L (73-393) 03/12/18 14:45 Microbiology 03/15/18 11:14 Blood - Peripheral Venous Blood Culture - Preliminary NO GROWTH OBTAINED AFTER 48 HOURS, INCUBATION TO CONTINUE FOR 3 DAYS. 03/15/18 11:14 Blood - Peripheral Venous Blood Culture - Preliminary NO GROWTH OBTAINED AFTER 48 HOURS, INCUBATION TO CONTINUE FOR 3 DAYS. 03/15/18 11:00 Sputum - Endotrachea Suction/Ventilator Gram Stain - Final 03/15/18 11:00 Sputum - Endotrachea Suction/Ventilator Sputum Culture - Preliminary Lactose Fermenting Neg Bacilli Non Lactose Fermenting Gnb Pending Organism 03/12/18 14:51 Blood - Peripheral Venous Blood Culture - Preliminary NO GROWTH OBTAINED AFTER 96 HOURS, INCUBATION TO CONTINUE FOR 1 DAYS. 03/12/18 14:51 Blood - Peripheral Venous Blood Culture - Preliminary NO GROWTH OBTAINED AFTER 96 HOURS, INCUBATION TO CONTINUE FOR 1 DAYS. 03/15/18 11:40 Blood - Central Line Blood Culture - Preliminary NO GROWTH OBTAINED AFTER 24 HOURS, INCUBATION TO CONTINUE FOR 4 DAYS. 03/15/18 11:30 Blood - Central Line Blood Culture - Preliminary NO GROWTH OBTAINED AFTER 24 HOURS, INCUBATION TO CONTINUE FOR 4 DAYS. 03/13/18 02:25 Peritoneal Fluid Gram Stain - Final 03/13/18 02:25 Peritoneal Fluid Body Fluid Culture - Final NO GROWTH OF AEROBIC ORGANISMS AFTER 48 HOURS INCUBATION 03/13/18 02:25 Peritoneal Fluid Anaerobic Culture - Final NO ANAEROBES WERE ISOLATED 03/12/18 22:12 Urine For Antigen Detection Legionella Antigen - Final 03/12/18 22:12 Urine For Antigen Detection Streptococcus pneumoniae Antigen (M - Final INR 1.19 (0.82-1.09) H 03/12/18 20:01 Problem List - Problems (1) Strangulated inguinal hernia Assessment/Plan: 82yo male MMP relatively healthy with SBO abdominal pain non reducible LIH, Lactic acid 3.4->6.9->1.8->1.5, Tbili 1.8, WBC 17->10, CTscan with SBO, unclear transition point and no clear bowel ischemia identified. Bibasilar pulmonary consolidation and hoarsness may be a sequela of an aspiration. POD#5 s/p Exploratory Laparotomy, segmental ressection of SB and primary stapled anastomosis for strangulated RIH. spiking fevers 101, likely worsening pneumonia. Patient had [address] scan showed worsening consolidation of the lower lobes, SB anastomosis is intact, obstruction is relieved. IR is considering a thoracentesis. ICU management continue quintero NGT feeds trickle only given vasopressor requirement IV antibiotics per ID GI and DVT prophylaxsis will follow This patient is critically ill. Time spent reviewing chart, examining patient, talking with providers and/or family and documentation is 45 minutes Code(s): K40.30 - UNIL INGUINAL HERNIA, W OBST, W/O GANGR, NOT SPCF RECUR (2) Incarcerated left inguinal hernia Code(s): K40.30 - UNIL INGUINAL HERNIA, W OBST, W/O GANGR, NOT SPCF RECUR (3) BPH (benign prostatic hyperplasia) Code(s): N40.0 - BENIGN PROSTATIC HYPERPLASIA WITHOUT LOWER URINRY TRACT SYMP Qualifiers: Lower urinary tract symptom presence: symptoms present Lower urinary tract symptom detail: urinary frequency Qualified Code(s): N40.1 - Benign prostatic hyperplasia with lower urinary tract symptoms; R35.0 - Frequency of micturition ; R35.0 - Frequency of micturition (4) DDD (degenerative disc disease), cervical Code(s): M50.30 - OTHER CERVICAL DISC DEGENERATION, UNSP CERVICAL REGION (5) SBO (small bowel obstruction) Code(s): K56.609 - UNSP INTESTNL OBST, UNSP TO PARTIAL VERSUS COMPLETE OBST (6) Aspiration pneumonia of both lower lobes due to gastric secretions Code(s): J69.0 - PNEUMONITIS DUE TO INHALATION OF FOOD AND VOMIT
--- NOTE | 2018-03-17 11:56 | PN ---
Teaching Attending Note Name of Resident: Hailee Hummel ATTENDING PHYSICIAN STATEMENT I saw and evaluated the patient. I reviewed the resident's note and discussed the case with the resident. I agree with the resident's findings and plan as documented. SUBJECTIVE: Patient seen and examined in the ICU. Remains intubated, sedated. Currently on NE @ 4 cmq for hemodynamic support. Fevers overnight. Intake & Output 03/14/18 03/15/18 03/16/18 03/17/18 23:59 23:59 23:59 23:59 Intake Total 7025.4 4429.5 2388.1 723.7 Output Total 2085 1100 500 200 Balance 4940.4 3329.5 1888.1 523.7 Weight 179 lb 178 lb 12.8 oz 183 lb 186 lb 8 oz Last Vital Signs Temp Pulse Resp BP Pulse Ox 100.5 F H 86 17 92/63 91 L 03/17/18 10:00 03/17/18 10:00 03/17/18 10:00 03/17/18 10:00 03/17/18 09:38 Active Medications Acetaminophen (Ofirmev Injection -) 1,000 mg IVPB Q8H PRN PRN Reason: FEVER Last Admin: 03/17/18 01:09 Dose: 1,000 mg Chlorhexidine Gluconate (Peridex -) 15 ml MM BID JUDY Last Admin: 03/17/18 09:48 Dose: 15 ml Chlorhexidine Gluconate (Hibiclens For Decolonization -) 1 applic TP HS JUDY Last Admin: 03/16/18 21:44 Dose: 1 applic Heparin Sodium (Porcine) (Heparin -) 5,000 unit SQ TID JUDY Last Admin: 03/16/18 14:20 Dose: 5,000 unit Propofol (Diprivan -) 1,000,000 mcg in 100 mls @ 4.736 mls/hr IV TITR JUDY; 10 MCG/KG/MIN PRN Reason: Protocol Last Admin: 03/17/18 03:00 Dose: 25 mcg/kg/min, 11.839 mls/hr Fentanyl 500 mcg/ Dextrose 100 mls @ 10 mls/hr IVPB TITR JUDY; 50 MCG/HR PRN Reason: Protocol Last Admin: 03/17/18 06:26 Dose: Not Given Norepinephrine Bitartrate 8, (000 mcg/ Dextrose) 500 mls @ 18.75 mls/hr IV ASDIR JUDY; 5 MCG/MIN PRN Reason: Protocol Last Admin: 03/17/18 09:00 Dose: 6 mcg/min, 22.5 mls/hr Piperacillin Sod/Tazobactam (Sod 3.375 gm/ Dextrose) 50 mls @ 100 mls/hr IVPB Q8H-IV JUDY PRN Reason: Protocol Last Admin: 03/17/18 09:46 Dose: 100 mls/hr Dextrose/Lactated Ringer's (D5-Lr -) 1,000 mls @ 50 mls/hr IV ASDIR JUDY Last Admin: 03/16/18 16:20 Dose: 50 mls/hr Mupirocin (Bactroban Ointment (For Decolonization) -) 1 applic NS BID [facility] Stop: 03/17/18 21:59 Last Admin: 03/17/18 09:46 Dose: 1 applic Ondansetron HCl (Zofran Injection) 4 mg IVPUSH Q6H PRN PRN Reason: NAUSEA Pantoprazole Sodium (Protonix Iv) 40 mg IVPUSH DAILY [facility] Last Admin: 03/17/18 09:46 Dose: 40 mg Gen: intubated, sedated Heart: RRR Lung: scattered rhonchi Abd: soft, dressings intact, (+) BS Ext: + edema Laboratory Results - last 24 hr 03/16/18 03/17/18 03/17/18 06:00 05:40 05:40 WBC 10.9 H RBC 4.41 Hgb 13.5 Hct 40.7 MCV 92.2 MCH 30.6 MCHC 33.1 RDW 13.7 Plt Count 186 MPV 9.2 Sodium 140 Potassium 3.9 Chloride 105 Carbon Dioxide 29 Anion Gap 6 L BUN 23 H D Creatinine 0.8 Creat Clearance w eGFR > 60 Random Glucose 105 D Calcium 7.1 L Phosphorus 2.5 Magnesium 2.3 Total Bilirubin 1.8 H AST 201 H D ALT 147 H D Alkaline Phosphatase 69 Total Protein 4.4 L Albumin 1.6 L Urine Color Dk yellow Urine Appearance Slcloudy Urine pH 5.0 Ur Specific [place] 1.056 H Urine Protein 2+ H Urine Glucose (UA) Negative Urine Ketones Negative Urine Blood Negative Urine Nitrite Negative Urine Bilirubin Negative Urine Urobilinogen Negative Ur Leukocyte Esterase Negative Urine WBC (Auto) 7 Urine RBC (Auto) 12 Ur Epithelial Cells Rare Urine Mucus Rare IMP: Acute Hypoxic Respiratory Failure Probable Aspiration Pneumonitis Do not suspect ARDS Incarcerated Inguinal Hernia s/p ex-lap/segmental terminal ileum resection/primary anastamosis 03/13 Septic Shock Acute Kidney Injury improving Lactic Acidosis Diverticulosis BPH - For possible diagnostic thoracentesis - continue antibiotics per ID - f/u cultures - Continue IVF - taper pressors to maintain MAP >65 - monitor urine output, creatinine - low tidal volume ventilation - keep Pplat <30 - taper FiO2, PEEP to keep SpO2 >90% - DVT/GI prophylaxis - continue ICU monitoring Dr Moreno Critical care time spent in reviewing chart, evaluating patient and formulating plan 35 min
[2018-03-17] MEDS: DEXTROSE 5%-LACTATED RINGERS 1,000 ML IV SCH ×2 (12:56→21:28)
--- NOTE | 2018-03-17 13:47 | PN ---
Physical Exam: SUBJECTIVE: Pt remains intubated and sedated. Overnight per staff was able to wean off levophed, however this morning hypotensive and needs more pressor support. pt sedation vacation yesterday was alert and listening to commands OBJECTIVE: Vital Signs Period Temp Pulse Resp BP Sys/Ceballos Pulse Ox Last 24 Hr 99.7 F-100.9 F 71-100 10-21 84-115/37-63 91-93 GENERAL: NAD, intubated and sedated HEENT: Pupils decreased in size with minimal reactivity, NG in place with draining brown fluid, moist mucous membranes, ETT noted Neck: R IJ line site C/D/I, JVD noted LUNGS: Vent sounds transmitted with crackles and rhonchi at b/l bases. AC mode: TV 450, PEEP 9, FiO2 80%?, RR 12 HEART: RRR, S1, S2 without murmur ABDOMEN: Soft, hypoactive BS, nondistended, midline incision C/D/I with closing panda, tenderness could not be assessed, no masses palpated, no bladder distention percussed. EXTREMITIES: 2+ DP pulses, warm, trace ankle and upper extremity edema noted SKIN: Warm, dry, no rashes noted Laboratory Results - last 24 hr 03/16/18 03/17/18 03/17/18 06:00 05:40 05:40 WBC 10.9 H RBC 4.41 Hgb 13.5 Hct 40.7 MCV 92.2 MCH 30.6 MCHC 33.1 RDW 13.7 Plt Count 186 MPV 9.2 Sodium 140 Potassium 3.9 Chloride 105 Carbon Dioxide 29 Anion Gap 6 L BUN 23 H D Creatinine 0.8 Creat Clearance w eGFR > 60 Random Glucose 105 D Calcium 7.1 L Phosphorus 2.5 Magnesium 2.3 Total Bilirubin 1.8 H AST 201 H D ALT 147 H D Alkaline Phosphatase 69 Total Protein 4.4 L Albumin 1.6 L Urine Color Dk yellow Urine Appearance Slcloudy Urine pH 5.0 Ur Specific [place] 1.056 H Urine Protein 2+ H Urine Glucose (UA) Negative Urine Ketones Negative Urine Blood Negative Urine Nitrite Negative Urine Bilirubin Negative Urine Urobilinogen Negative Ur Leukocyte Esterase Negative Urine WBC (Auto) 7 Urine RBC (Auto) 12 Ur Epithelial Cells Rare Urine Mucus Rare Active Medications Generic Name Dose Route Start Last Admin Trade Name Freq PRN Reason Stop Dose Admin Acetaminophen 1,000 mg 03/15/18 10:50 03/17/18 01:09 Ofirmev Injection - IVPB 1,000 mg Q8H PRN Administration FEVER Chlorhexidine Gluconate 15 ml 03/13/18 10:00 03/17/18 09:48 Peridex - MM 15 ml BID JUDY Administration Chlorhexidine Gluconate 1 applic 03/13/18 22:00 03/16/18 21:44 Hibiclens For Decolonization - TP 1 applic HS JUDY Administration Heparin Sodium (Porcine) 5,000 unit 03/13/18 14:00 03/16/18 14:20 Heparin - SQ 5,000 unit TID JUDY Administration Propofol 1,000,000 mcg in 100 mls @ 4.736 mls/hr 03/13/18 04:00 03/17/18 03: 00 Diprivan - IV 25 mcg/kg/min TITR JUDY 11.839 mls/hr Protocol Administration 10 MCG/KG/MIN Fentanyl 500 mcg/ Dextrose 100 mls @ 10 mls/hr 03/13/18 05:15 03/17/18 06:26 IVPB Not Given TITR JUDY Protocol 50 MCG/HR Norepinephrine Bitartrate 8, 500 mls @ 18.75 mls/hr 03/13/18 05:15 03/17/18 09:00 000 mcg/ Dextrose IV 6 mcg/min ASDIR JUDY 22.5 mls/hr Protocol Administration 5 MCG/MIN Piperacillin Sod/Tazobactam 50 mls @ 100 mls/hr 03/13/18 18:00 03/17/18 12:50 Sod 3.375 gm/ Dextrose IVPB 100 mls/hr Q8H-IV JUDY Administration Protocol Dextrose/Lactated Ringer's 1,000 mls @ 50 mls/hr 03/16/18 11:51 03/17/18 12: 56 D5-Lr - IV Not Given ASDIR JUDY Mupirocin 1 applic 03/13/18 10:00 03/17/18 09:46 Bactroban Ointment (For Decolonization) - NS 03/17/18 21:59 1 applic BID JUDY Administration Ondansetron HCl 4 mg 03/13/18 04:30 Zofran Injection IVPUSH Q6H PRN NAUSEA Pantoprazole Sodium 40 mg 03/13/18 10:00 03/17/18 09:46 Protonix Iv IVPUSH 40 mg DAILY JUDY Administration ASSESSMENT/PLAN: 1) Septic shock 2/2 to bowel ischemia in addition to PNA --Suspected aspiration PNA as evident from sore throat upon admission --Levophed tapering up to 4mcg/min this morning; MAP goal still 65-70 to prevent relative hypotension --Increase to Zosyn 4.5gm q8h (Day 5) --ID on board --Adding vancomycin --Spoke with ICU team, Dr. Fox and Dr. Galvan who also spoke to IR - --no thoracentesis; not a large enough collection --chest tube probably too traumatic and pigtail may be clogged with purulence if there --will continue abx for now --cultures showing serratia, group D strep 2) Acute hypoxic respiratory failure --Cont. LR 50cc/hr; CVP goal should shift lower than 8 at this point --Continue intubation with AC mode vent; would decrease PEEP and TV as tolerated due to increased risk of barotrauma (goal Plateau pressures <30) --SpO2 to be maintained >90% --Not a candidate for wean trials; continue sedation with propofol and fentanyl --Possibility for sedation vacations when more stable 3) Fevers --Recent fever spikes suggesting another infectious process is occurring --f/u Vascular duplex report to r/o DVT --CTAP and CT chest with IV and oral contrast to be performed (r/o pericolonic abscess or anastomosis leak) --f/u repeat peripheral blood cultures and central line cultures --Ofirmev on board 4) Elevated LFTs --RUQ US r/o GB process --reveals possibility of acalculous cholecystitis --if LFTs and T. Bili continue to trend up IR can put cholecystostomy 5) ANATOLIY --Prerenal in etiology --FENa 0.0% --RESOLVED (BUN/Cr 18/0.9) FEN: Fluids: D5LR @50cc/hr Electrolyte abnormalities: None today Nutrition: NPO; I&S currently PPX: DVT - Heparin Sq to resume due to no procedures imminent GI - Protonix 40mg IVP daily Dispo: Continue ICU monitoring Case discussed with Dr. Thorne and ICU team Mukul White, DO - IM PGY-1 Visit type - Emergency Visit Emergency Visit: No - New Patient This patient is new to me today: No - Critical Care Critical Care patient: Yes Total Critical Care Time (in minutes): 39 Critical Care Statement: The care of this patient involved high complexity decision making to prevent further life threatening deterioration of the patient 's condition and/or to evaluate & treat vital organ system(s) failure or risk of failure.
--- NOTE | 2018-03-17 14:48 | PATH ---
Surgical Pathology Report Patient Name: BETTY PEDRO [facility]. Rec. #: [id number] /Age/Gender: 1935 (Age: 82) / M Account: [id number] Location: ICU [facility] Taken: 03/13/2018 Received: 03/13/2018 Reported: 03/17/2018 Physicians: Manpreet Fox M.D. Specimen(s) Received BX TERMINAL ILEUM INCARCERATED IN RIGHT INGUINAL HERNIA Clinical History Small bowel obstruction Final Diagnosis TERMINAL ILEUM, RESECTION: PORTION OF TERMINAL ILEUM SHOWING LAMINA PROPRIA HEMORRHAGE, SUPERFICIAL EPITHELIAL NECROSIS, AND VASCULAR CONGESTION. VIABLE MARGINS. COMMENT: FINDINGS ARE CONSISTENT WITH EARLY ISCHEMIC CHANGE OF THE SMALL INTESTINE. Electronically Signed Flakito Angulo M.D. Gross Description Received in formalin labeled "terminal ileum," is an 8.5 cm in length portion of small bowel with 2 stapled mucosal margins and moderate attached fat. The serosa is berry purple and smooth with a dusky appearance. The mucosa is red purple with a dusky appearance and focally flattened folds. No mucosal masses are identified. Churner sections are submitted in 4 cassettes as follows: 6-0-[id number] stapled mucosal margins; 9-9-[id number] mucosa. /03/13/2018 saudi03/13/2018
--- NOTE | 2018-03-17 15:51 | PN ---
Teaching Attending Note Name of Resident: Mukul White ATTENDING PHYSICIAN STATEMENT I saw and evaluated the patient. I reviewed the resident's note and discussed the case with the resident. I agree with the resident's findings and plan as documented. SUBJECTIVE: No events over night seen at 9 :15 am OBJECTIVE: Intubated, sedated, comfortable., round equal pupils 1 mm in diameter, minimally reactive to light CV: RRR. Lungs; clear anteriorly, decreased breath sounds at bases R > L Abd: absent BS. mid line wound with panda, no discharge. Ext: no edema or erythema scrotal edema improved compared to yesterday ASSESSMENT AND PLAN: 82 y/o gentleman with h/o DJD, GERD, diverticulosis and other medical problems who presented with abd pain and was found to have SBO with bowel ischemia and developed acute resp failure and septic shock. 1- Acute hypoxic resp failure. due to severe sepsis and b/l PNA /ARDS - cont Abx - mechanical ventilation and sedation 2- Septic shock. off levo at time of eval. will monitor BP . cont to have fever sputum cx noted - CT Abd/pelvis /chest with loculated R pleural effusion, andno leak in abd \ - order for R paracentesis by IR o r/o empyema - follow repeat blood cx from central line and periphery. - cont zosyn - COnt IVF 3- SBO and bowel ischemia: unclear etiology. - POD 4 s/p exploratory laparotomy and partial small bowel resection. - L inguinal hernia to be repaired at a later time - no growth form peritoneal fluid 4- ANATOLIY:resolved . 5- PX: PPI and SQ heparin.
--- NOTE | 2018-03-17 15:56 | PN ---
Progress Note, Physician History of Present Illness: patient continues to be intubated sedated still with fevers plan is not to tap the patient - Current Medication List Current Medications: Active Medications Chlorhexidine Gluconate (Peridex -) 15 ml MM BID JUDY Last Admin: 03/17/18 09:48 Dose: 15 ml Chlorhexidine Gluconate (Hibiclens For Decolonization -) 1 applic TP HS JUDY Last Admin: 03/16/18 21:44 Dose: 1 applic Heparin Sodium (Porcine) (Heparin -) 5,000 unit SQ TID JUDY Last Admin: 03/16/18 14:20 Dose: 5,000 unit Propofol (Diprivan -) 1,000,000 mcg in 100 mls @ 4.736 mls/hr IV TITR JUDY; 10 MCG/KG/MIN PRN Reason: Protocol Last Admin: 03/17/18 03:00 Dose: 25 mcg/kg/min, 11.839 mls/hr Fentanyl 500 mcg/ Dextrose 100 mls @ 10 mls/hr IVPB TITR JUDY; 50 MCG/HR PRN Reason: Protocol Last Admin: 03/17/18 06:26 Dose: Not Given Norepinephrine Bitartrate 8, (000 mcg/ Dextrose) 500 mls @ 18.75 mls/hr IV ASDIR JUDY; 5 MCG/MIN PRN Reason: Protocol Last Admin: 03/17/18 09:00 Dose: 6 mcg/min, 22.5 mls/hr Dextrose/Lactated Ringer's (D5-Lr -) 1,000 mls @ 50 mls/hr IV ASDIR JUDY Last Admin: 03/17/18 12:56 Dose: Not Given Piperacillin Sod/Tazobactam (Sod 4.5 gm/ Dextrose) 100 mls @ 200 mls/hr IVPB Q8H-IV JUDY PRN Reason: Protocol Vancomycin HCl 1,250 mg/ (Dextrose) 250 mls @ 250 mls/2 hr IVPB Q24H JUDY PRN Reason: Protocol Mupirocin (Bactroban Ointment (For Decolonization) -) 1 applic NS BID [facility] Stop: 03/17/18 21:59 Last Admin: 03/17/18 09:46 Dose: 1 applic Ondansetron HCl (Zofran Injection) 4 mg IVPUSH Q6H PRN PRN Reason: NAUSEA Pantoprazole Sodium (Protonix Iv) 40 mg IVPUSH DAILY JUDY Last Admin: 03/17/18 09:46 Dose: 40 mg - Objective Vital Signs: Vital Signs Temperature 101.3 F H 03/17/18 14:00 Pulse Rate 108 H 03/17/18 14:00 Respiratory Rate 20 03/17/18 14:00 Blood Pressure 110/54 03/17/18 14:00 O2 Sat by Pulse Oximetry (%) 91 L 03/17/18 09:38 Constitutional: Yes: Other Cardiovascular: Yes: Regular Rate and Rhythm Respiratory: Yes: Intubated, Mechanically Ventilated Gastrointestinal: Yes: Soft, Hypoactive Bowel Sounds Musculoskeletal: Yes: WNL Extremities: Yes: WNL Wound/Incision: Yes: Clean/Dry Neurological: Yes: Other Psychiatric: Yes: Alert Labs: CBC, BMP 03/17/18 05:40 03/17/18 05:40 INR, PTT INR 1.19 (0.82-1.09) H 03/12/18 20:01 - ....Imaging Cat Scan: Report Reviewed, Image Reviewed Assessment/Plan Problem List - Problems (1) Strangulated inguinal hernia Pulmonary evaluation - weaning today? GI Evaluation - Tbili 3.5, 3.6 BP goal MAP 65-70, has a stapled small bowel anastomosis avoid lwo flow states will follow Code(s): K40.30 - UNIL INGUINAL HERNIA, W OBST, W/O GANGR, NOT SPCF RECUR (2) Incarcerated left inguinal hernia Code(s): K40.30 - UNIL INGUINAL HERNIA, W OBST, W/O GANGR, NOT SPCF RECUR (3) BPH (benign prostatic hyperplasia) Code(s): N40.0 - BENIGN PROSTATIC HYPERPLASIA WITHOUT LOWER URINRY TRACT SYMP Qualifiers: Lower urinary tract symptom presence: symptoms present Lower urinary tract symptom detail: urinary frequency Qualified Code(s): N40.1 - Benign prostatic hyperplasia with lower urinary tract symptoms; R35.0 - Frequency of micturition ; R35.0 - Frequency of micturition (4) DDD (degenerative disc disease), cervical Code(s): M50.30 - OTHER CERVICAL DISC DEGENERATION, UNSP CERVICAL REGION (5) SBO (small bowel obstruction) Code(s): K56.609 - UNSP INTESTNL OBST, UNSP TO PARTIAL VERSUS COMPLETE OBST (6) Aspiration pneumonia of both lower lobes due to gastric secretions Code(s): J69.0 - PNEUMONITIS DUE TO INHALATION OF FOOD AND VOMIT plan continue close monitoring resp support vent support continue abx rest as per icu sputum cx report noted still awaiting identification of the organism rest cx noted will add vanco to zosyn and increase dose of zosyn cc time 40 min
[2018-03-17] MEDS: VANCOMYCIN 1,250 MG in DEXTROSE 5%-WATER - 250 ML IVPB SCH (17:33)
[2018-03-17] MEDS ORDERED: DEXTROSE 5%-WATER 100 ML IVPB ONE (17:54)
[2018-03-17] MEDS ORDERED: PIPERACILLIN/TAZOBACTAM 4.5 GM VIAL IVPB ONE (17:54)
[2018-03-17] MEDS: PIPERACILLIN/TAZOB 4.5 GM 4.5 GM in DEXTROSE 5%-WATER 100 ML IVPB SCH (19:00)
[2018-03-17] MEDS ORDERED: fentaNYL CITRATE 250 MCG/5 ML VIAL ONE (20:23)
[2018-03-17] MEDS ORDERED: PT OWN MED DRAWER 7, Y5N ONE (21:19)
[2018-03-17] MEDS: CHLORHEXIDINE GLUCONATE 4% CLEANSER FOR DECOLONIZATION TP SCH (21:24)
[2018-03-17] MEDS: HEPARIN NA (PORCINE) 5,000 UNITS/ML 1ML VIAL SQ SCH (21:24)
[2018-03-18] MEDS ORDERED: DEXTROSE 5%-WATER 100 ML IVPB ONE ×4 (01:52→23:52)
[2018-03-18] MEDS ORDERED: PIPERACILLIN/TAZOBACTAM 4.5 GM VIAL IVPB ONE ×4 (01:52→23:52)
[2018-03-18] MEDS: PIPERACILLIN/TAZOB 4.5 GM 4.5 GM in DEXTROSE 5%-WATER 100 ML IVPB SCH ×3 (01:56→18:14)
[2018-03-18] MEDS: PROPOFOL 1,000,000 MCG/100 ML VIAL IV SCH ×3 (02:08→19:30)
[2018-03-18] MEDS: FENTANYL INJECTION 500 MCG in DEXTROSE 5%-WATER - 90 ML IVPB SCH ×3 (02:08→22:57)
[2018-03-18 06:39] LABS: HEMATOCRIT 41.3 % (35.4-49); HEMOGLOBIN 13.6 GM/dL (11.7-16.9); MCH 30.3 pg (25.7-33.7); MCHC 32.9 g/dl (32.0-35.9); MEAN CELL VOLUME 92.2 fl (80-96); MEAN PLT VOLUME 8.9 fl (7.5-11.1); PLATELET COUNT 226 K/MM3 (134-434); RBC 4.48 M/mm3 (4.00-5.60); RDW 13.9 % (11.9-15.9); WHITE BLOOD COUNT 13.2 K/mm3 (4.0-10.0)
[2018-03-18] MEDS: NOREPINEPHRINE BITARTRATE 8,000 MCG in DEXTROSE 5%-WATER - 492 ML IV SCH (06:43)
[2018-03-18] MEDS: HEPARIN NA (PORCINE) 5,000 UNITS/ML 1ML VIAL SQ SCH ×3 (07:00→21:19)
[2018-03-18 07:20] LABS: ALBUMIN 1.3 g/dl (3.4-5.0); ALK PHOS 77 U/L (45-117); ANION GAP 5 (8-16); BILIRUBIN,TOTAL 1.6 mg/dL (0.2-1.0); BLOOD UREA NITROGEN 26 mg/dL (7-18); CHLORIDE 105 mmol/L (98-107); CO2 31 mmol/L (21-32); CREATININE 0.8 mg/dL (0.7-1.3); GLUCOSE,RANDOM 112 mg/dL (74-106); MAGNESIUM 2.4 mg/dL (1.8-2.4); PHOSPHOROUS 3.1 mg/dL (2.5-4.9); POTASSIUM 4.2 mmol/L (3.5-5.1); SGOT/AST 196 U/L (15-37); SGPT/ALT 160 U/L (12-78); SODIUM 141 mmol/L (136-145); TOT PROT 4.1 g/dl (6.4-8.2)
[2018-03-18 07:33] LABS: CALCIUM 6.7 mg/dL (8.5-10.1)
--- NOTE | 2018-03-18 07:35 | PN ---
Progress Note (short form) - Note Progress Note: S: -- Defervesced now after Tylenol and higher dose of Zosyn -- Off levo since 11pm -- Decreased O2 requirement, FiO2 down to 60% but still need high PEEP O: Vital Signs Period Temp Pulse Resp BP Sys/Ceballos Pulse Ox Last 24 Hr 99.9 F-100.9 F 69-83 12-18 93-114/47-63 94-96 Tele - No events GEN: Intubated, sedated HEENT: PERRL, no JVD CV: S1, S2, RRR LUNG: CTABL bilateral breath sounds ABD: Soft, NT, ND, normaoctive BS MSK: No edema, no erythema NEURO: Sedated A/P: 82yo relatively healthy M presented w/ SBO from an incarcerated R inguinal hernia after weight training # Septic 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 POD4 from resection. But continues to have fevers. Repeat CT chest/abd shows likely source is b/l PNA w/ loculated effusion. IR unable to perform pleurocentesis bc loculated R sided effusion is too small. Increased Zosyn (day 7) to 4.5 yesterday w/ improvement in fevers. # Acute Hypoxic RF from bilateral PNA -- Presented hypoxic. Suspected aspiration pneumonia from constant emesis. Has + sputum cx. R sided loculated component on CT. With increased dose of antibiotics , is now requiring less FiO2 # Prerenal ANATOLIY -- FeNa <0.1 c/w prerenal. Improved w/ IVF. # Transaminitis -- Likely from low perfusion to liver. Can get ultrasound of gallbladder to ensure no abnormalities # B/L inguinal hernia -- Likely caused by strenuous activity at home. Avoid this upon d/c to prevent further incarcerations. Hernias were reduced in OR, but will need to fix defect eventually # FEN/PPx -- D5Lr at 50cchr. 10cc/hr feeds. HSQ tid. PPI due to septic shock. # Dispo -- Sedation vacations. Remain in ICU while intubated Hailee Hummel MD [id number] ICU Resident
--- NOTE | 2018-03-18 07:48 | PN ---
Physical Exam: SUBJECTIVE: Overnight events: pt was able to be weaned off of levophed while maintaining MAPs of ~70 due to decreasing sedation with remaining good efficacy. Pt remains intubated and sedated. OBJECTIVE: Vital Signs Period Temp Pulse Resp BP Sys/Ceballos Pulse Ox Last 24 Hr 99 F-101.5 F 78-111 11-23 92-136/50-67 91-99 GENERAL: NAD, intubated and sedated HEENT: Pupils decreased in size with reactivity, NG in place, moist mucous membranes, ETT noted Neck: R IJ line site C/D/I, JVD remains LUNGS: Crackles and rhonchi at b/l bases with diminished breath sounds. AC mode : TV 450, PEEP 11, FiO2 60%, RR 12 HEART: RRR, S1, S2 without murmur ABDOMEN: Soft, hypoactive BS, nondistended, midline incision C/D/I with closing panda, no masses palpated EXTREMITIES: 2+ DP pulses, warm, trace ankle and upper extremity edema noted SKIN: Warm, dry, no rashes noted Laboratory Results - last 24 hr 03/16/18 03/17/18 03/18/18 06:00 05:40 05:00 WBC 13.2 H RBC 4.48 Hgb 13.6 Hct 41.3 MCV 92.2 MCH 30.3 MCHC 32.9 RDW 13.9 Plt Count 226 D MPV 8.9 Sodium 140 Potassium 3.9 Chloride 105 Carbon Dioxide 29 Anion Gap 6 L BUN 23 H D Creatinine 0.8 Creat Clearance w eGFR > 60 Random Glucose 105 D Calcium 7.1 L Phosphorus 2.5 Magnesium 2.3 Total Bilirubin 1.8 H AST 201 H D ALT 147 H D Alkaline Phosphatase 69 Total Protein 4.4 L Albumin 1.6 L Urine Color Dk yellow Urine Appearance Slcloudy Urine pH 5.0 Ur Specific [place] 1.056 H Urine Protein 2+ H Urine Glucose (UA) Negative Urine Ketones Negative Urine Blood Negative Urine Nitrite Negative Urine Bilirubin Negative Urine Urobilinogen Negative Ur Leukocyte Esterase Negative Urine WBC (Auto) 7 Urine RBC (Auto) 12 Ur Epithelial Cells Rare Urine Mucus Rare 03/18/18 05:00 WBC RBC Hgb Hct MCV MCH MCHC RDW Plt Count MPV Sodium 141 Potassium 4.2 Chloride 105 Carbon Dioxide 31 Anion Gap 5 L BUN 26 H Creatinine 0.8 Creat Clearance w eGFR > 60 Random Glucose 112 H Calcium 6.7 L* Phosphorus 3.1 D Magnesium 2.4 Total Bilirubin 1.6 H AST 196 H ALT 160 H Alkaline Phosphatase 77 Total Protein 4.1 L Albumin 1.3 L Urine Color Urine Appearance Urine pH Ur Specific [place] Urine Protein Urine Glucose (UA) Urine Ketones Urine Blood Urine Nitrite Urine Bilirubin Urine Urobilinogen Ur Leukocyte Esterase Urine WBC (Auto) Urine RBC (Auto) Ur Epithelial Cells Urine Mucus Active Medications Generic Name Dose Route Start Last Admin Trade Name Freq PRN Reason Stop Dose Admin Acetaminophen 1,000 mg 03/17/18 18:49 03/17/18 22:39 Ofirmev Injection - IVPB 1,000 mg Q6H PRN Administration FEVER Chlorhexidine Gluconate 15 ml 03/13/18 10:00 03/17/18 21:24 Peridex - MM 15 ml BID JUDY Administration Chlorhexidine Gluconate 1 applic 03/13/18 22:00 03/17/18 21:24 Hibiclens For Decolonization - TP 1 applic HS JUDY Administration Heparin Sodium (Porcine) 5,000 unit 03/13/18 14:00 03/17/18 21:24 Heparin - SQ 5,000 unit TID JUDY Administration Propofol 1,000,000 mcg in 100 mls @ 4.736 mls/hr 03/13/18 04:00 03/18/18 04: 20 Diprivan - IV Not Given TITR JUDY Protocol 10 MCG/KG/MIN Fentanyl 500 mcg/ Dextrose 100 mls @ 10 mls/hr 03/13/18 05:15 03/18/18 06:43 IVPB Not Given TITR JUDY Protocol 50 MCG/HR Norepinephrine Bitartrate 8, 500 mls @ 18.75 mls/hr 03/13/18 05:15 03/18/18 06:43 000 mcg/ Dextrose IV Not Given ASDIR JUDY Protocol 5 MCG/MIN Dextrose/Lactated Ringer's 1,000 mls @ 50 mls/hr 03/16/18 11:51 03/17/18 21: 28 D5-Lr - IV 50 mls/hr ASDIR JUDY Administration Piperacillin Sod/Tazobactam 100 mls @ 200 mls/hr 03/17/18 18:00 03/18/18 01: 56 Sod 4.5 gm/ Dextrose IVPB 200 mls/hr Q8H-IV JUDY Administration Protocol Vancomycin HCl 1,250 mg/ 250 mls @ 250 mls/2 hr 03/17/18 16:00 03/17/18 17:33 Dextrose IVPB 250 mls/2 hr Q24H JUDY Administration Protocol Ondansetron HCl 4 mg 03/13/18 04:30 Zofran Injection IVPUSH Q6H PRN NAUSEA Pantoprazole Sodium 40 mg 03/13/18 10:00 03/17/18 09:46 Protonix Iv IVPUSH 40 mg DAILY JUDY Administration ASSESSMENT/PLAN: 1) Septic shock 2/2 to bowel ischemia in addition to PNA --Suspected aspiration PNA as evident from sore throat upon admission --Off levophed!!; MAP goal still 65-70 to prevent relative hypotension --Most likely due to decreased sedation with good effect still --Continue Zosyn 4.5gm q8h (Day 7) --ID on board --Continue Vancomycin 1.25gm qdaily (day 2) --Afebrile last night; continue antibiotics for now --cultures showing serratia, group D strep 2) Acute hypoxic respiratory failure --Cont. LR 50cc/hr; CVP goal 8-12 --Continue intubation with AC mode vent; would decrease PEEP as tolerated due to increased risk of barotrauma (goal Plateau pressures <30) --SpO2 to be maintained >90% --Sedation vacations to assess mental status and command status 3) Fevers --Chest CT showing R pleural effusion with densities and septum --Not a candidate for thoracentesis per IR --If pt continues to spike fevers will need to assess for possible empyema --Abd CT showing no leak or pericolonic abscess --Rpt cultures negative with continued incubation 4) Elevated LFTs --RUQ US r/o GB process --LFTs trending down --Likely due to relative hypotension to the liver; continue to follow LFTs 5) ANATOLIY --Prerenal in etiology --FENa 0.0% --RESOLVED (BUN/Cr 18/0.9) FEN: Fluids: D5LR @50cc/hr Electrolyte abnormalities: None today Nutrition: Trickle feeds initiated yesterday; to continue PPX: DVT - Heparin Sq GI - Protonix 40mg IVP daily Dispo: Continue ICU monitoring Case discussed with Dr. Madsen and ICU team Mukul White, DO - IM PGY-1 Visit type - Emergency Visit Emergency Visit: No - New Patient This patient is new to me today: No - Critical Care Critical Care patient: Yes Total Critical Care Time (in minutes): 35 Critical Care Statement: The care of this patient involved high complexity decision making to prevent further life threatening deterioration of the patient 's condition and/or to evaluate & treat vital organ system(s) failure or risk of failure.
[2018-03-18] MEDS: PANTOPRAZOLE SODIUM 40 MG VIAL IVPUSH SCH (09:11)
[2018-03-18] MEDS: CHLORHEXIDINE GLUCONATE 0.12% 15ML CUP MM SCH ×2 (09:36→21:19)
--- NOTE | 2018-03-18 11:32 | PN ---
Teaching Attending Note Name of Resident: Hailee Hummel ATTENDING PHYSICIAN STATEMENT I saw and evaluated the patient. I reviewed the resident's note and discussed the case with the resident. I agree with the resident's findings and plan as documented. SUBJECTIVE: Pt seen and examined in the ICU. Remains intubated, sedated. Off pressors. Vented on volume assist control with 60% FiO2, PEEP 11. Persistent fevers overnight but defervesced this AM. OBJECTIVE: Last Vital Signs Temp Pulse Resp BP Pulse Ox 100.0 F H 97 H 22 108/59 92 L 03/18/18 10:00 03/18/18 10:00 03/18/18 11:23 03/18/18 10:00 03/18/18 09:00 Intake & Output 03/15/18 03/16/18 03/17/18 03/18/18 23:59 23:59 23:59 23:59 Intake Total 4429.5 2388.1 2393.6 586.2 Output Total 1100 500 700 300 Balance 3329.5 1888.1 1693.6 286.2 Weight 81.102 kg 83.007 kg 84.595 kg 86.273 kg Gen: intubated, sedated Heart: RRR Lung: scattered rhonchi Abd: soft, nontender Ext: + edema CBC, BMP 03/18/18 05:00 03/18/18 05:00 Active Medications Acetaminophen (Ofirmev Injection -) 1,000 mg IVPB Q6H PRN PRN Reason: FEVER Last Admin: 03/17/18 22:39 Dose: 1,000 mg Chlorhexidine Gluconate (Peridex -) 15 ml MM BID JUDY Last Admin: 03/18/18 09:36 Dose: 15 ml Chlorhexidine Gluconate (Hibiclens For Decolonization -) 1 applic TP HS JUDY Last Admin: 03/17/18 21:24 Dose: 1 applic Heparin Sodium (Porcine) (Heparin -) 5,000 unit SQ TID JUDY Last Admin: 03/18/18 07:00 Dose: 5,000 unit Propofol (Diprivan -) 1,000,000 mcg in 100 mls @ 4.736 mls/hr IV TITR JUDY; Protocol Last Admin: 03/18/18 04:20 Dose: Not Given Fentanyl 500 mcg/ Dextrose 100 mls @ 10 mls/hr IVPB TITR JUDY; Protocol Last Admin: 03/18/18 06:43 Dose: Not Given Norepinephrine Bitartrate 8, (000 mcg/ Dextrose) 500 mls @ 18.75 mls/hr IV ASDIR JUDY; Protocol Last Admin: 03/18/18 06:43 Dose: Not Given Dextrose/Lactated Ringer's (D5-Lr -) 1,000 mls @ 50 mls/hr IV ASDIR JUDY Last Admin: 03/17/18 21:28 Dose: 50 mls/hr Piperacillin Sod/Tazobactam (Sod 4.5 gm/ Dextrose) 100 mls @ 200 mls/hr IVPB Q8H-IV JUDY; Protocol Last Admin: 03/18/18 09:11 Dose: 200 mls/hr Vancomycin HCl 1,250 mg/ (Dextrose) 250 mls @ 250 mls/2 hr IVPB Q24H JUDY; Protocol Last Admin: 03/17/18 17:33 Dose: 250 mls/2 hr Ondansetron HCl (Zofran Injection) 4 mg IVPUSH Q6H PRN PRN Reason: NAUSEA Pantoprazole Sodium (Protonix Iv) 40 mg IVPUSH DAILY [facility] Last Admin: 03/18/18 09:11 Dose: 40 mg ASSESSMENT AND PLAN: Acute Hypoxic Respiratory Failure Pneumonia - ?Aspiration ARDS Incarcerated Inguinal Hernia s/p ex-lap/segmental terminal ileum resection/primary anastamosis 03/13 Septic Shock resolving Acute Kidney Injury improving Lactic Acidosis Diverticulosis BPH - continue antibiotics - f/u cultures - IVF to keep CVP 8-12 - taper pressors to maintain MAP >65 - will likely need lasix once hemodynamically stable - monitor urine output, creatinine - low tidal volume ventilation - keep Pplat <30 - taper FiO2, PEEP to keep SpO2 >90% - DVT/GI prophylaxis - continue ICU monitoring critical care time spent in reviewing chart, evaluating patient and formulating plan 35 min
--- NOTE | 2018-03-18 11:48 | PN ---
Progress Note, Physician Chief Complaint: SBO History of Present Illness: 82 yo male PMH BPH, degernerative disc disease (cervical), diverticulosis, hemorrhoids presented to the ED with abdominal pain and vomiting for on day. He reports that he was weight training yesterday and developed some groin pain. He remains sedated and intubated in the ICU post op give poor saturation preop. He on low dose vasopressor support overnight. - Current Medication List Current Medications: Active Medications Acetaminophen (Ofirmev Injection -) 1,000 mg IVPB Q6H PRN PRN Reason: FEVER Last Admin: 03/17/18 22:39 Dose: 1,000 mg Chlorhexidine Gluconate (Peridex -) 15 ml MM BID JUDY Last Admin: 03/18/18 09:36 Dose: 15 ml Chlorhexidine Gluconate (Hibiclens For Decolonization -) 1 applic TP HS JUDY Last Admin: 03/17/18 21:24 Dose: 1 applic Heparin Sodium (Porcine) (Heparin -) 5,000 unit SQ TID JUDY Last Admin: 03/18/18 07:00 Dose: 5,000 unit Propofol (Diprivan -) 1,000,000 mcg in 100 mls @ 4.736 mls/hr IV TITR JUDY; Protocol Last Admin: 03/18/18 04:20 Dose: Not Given Fentanyl 500 mcg/ Dextrose 100 mls @ 10 mls/hr IVPB TITR JUDY; Protocol Last Admin: 03/18/18 06:43 Dose: Not Given Norepinephrine Bitartrate 8, (000 mcg/ Dextrose) 500 mls @ 18.75 mls/hr IV ASDIR JUDY; Protocol Last Admin: 03/18/18 06:43 Dose: Not Given Dextrose/Lactated Ringer's (D5-Lr -) 1,000 mls @ 50 mls/hr IV ASDIR JUDY Last Admin: 03/17/18 21:28 Dose: 50 mls/hr Piperacillin Sod/Tazobactam (Sod 4.5 gm/ Dextrose) 100 mls @ 200 mls/hr IVPB Q8H-IV JUDY; Protocol Last Admin: 03/18/18 09:11 Dose: 200 mls/hr Vancomycin HCl 1,250 mg/ (Dextrose) 250 mls @ 250 mls/2 hr IVPB Q24H JUDY; Protocol Last Admin: 03/17/18 17:33 Dose: 250 mls/2 hr Ondansetron HCl (Zofran Injection) 4 mg IVPUSH Q6H PRN PRN Reason: NAUSEA Pantoprazole Sodium (Protonix Iv) 40 mg IVPUSH DAILY [facility] Last Admin: 03/18/18 09:11 Dose: 40 mg - Objective Vital Signs: Vital Signs Temperature 100.0 F H 03/18/18 10:00 Pulse Rate 97 H 03/18/18 10:00 Respiratory Rate 22 03/18/18 11:23 Blood Pressure 108/59 03/18/18 10:00 O2 Sat by Pulse Oximetry (%) 92 L 03/18/18 09:00 Vital Signs Period Temp Pulse Resp BP Sys/Ceballos Pulse Ox Last 24 Hr 99 F-101.5 F 79-111 11-26 93-136/50-67 91-99 Intake & Output 03/17/18 03/18/18 03/18/18 23:59 07:59 15:59 Intake Total 993.7 586.2 Output Total 300 300 Balance 693.7 286.2 Weight 190 lb 3.2 oz Intake: IV 593.7 486.2 D5-Lr - 1,000 ml @ 50 mls 400 375 /hr IV ASDIR [facility] Rx#: [id number] DIPRIVAN - 1,000,000 mcg 95.2 95.2 In 100 ml @ 10 MCG/KG/MIN 4.736 mls/hr IV TITR [facility] Rx#:[id number] Levophed - 8,000 Mcg In 82.5 0 D5w - 492 ml @ 5 MCG/MIN 18.75 mls/hr IV ASDIR [facility] Rx#:[id number] fentanyl 16 16 IVPB 400 100 Output: Urine 300 300 Quintero 300 300 Other: Voiding Method Indwelling Catheter Indwelling Catheter Bowel Movement Yes: large, soft Yes: small, soft # Bowel Movements 1 1 Weight Measurement Method Built in [facility] Constitutional: Yes: Well Nourished, No Distress, Calm Eyes: Yes: Conjunctiva Clear, EOM Intact HENT: Yes: Atraumatic, Normocephalic Neck: Yes: Supple, Trachea Midline Cardiovascular: Yes: Regular Rate and Rhythm, S1, S2 Respiratory: Yes: Regular, Diminished, Mechanically Ventilated Gastrointestinal: Yes: Normal Bowel Sounds, Soft, Distention. No: Tenderness ...Rectal Exam: Yes: Deferred Genitourinary: No: CVA Tenderness - Left, CVA Tenderness - Right Musculoskeletal: No: Muscle Pain, Muscle Weakness Extremities: No: Cool, Cyanosis Edema: Yes Edema: LUE: 1+, RUE: 1+, LLE: 1+, RLE: 1+ Peripheral Pulses WNL: Yes Peripheral Pulses: Left Doralis Pedis: 2+, Right Dorsalis Pedis: 2+ Wound/Incision: Yes: Clean/Dry, Well Approximated, [place] Intact, Open to air Neurological: Yes: Alert, Oriented Psychiatric: Yes: Alert, Oriented Labs: CBC, BMP 03/18/18 05:00 03/18/18 05:00 INR, PTT INR 1.19 (0.82-1.09) H 03/12/18 20:01 Problem List - Problems (1) Strangulated inguinal hernia Assessment/Plan: 82yo male MMP relatively healthy with SBO abdominal pain non reducible LIH, Lactic acid 3.4->6.9->1.8->1.5, Tbili 1.8, WBC 17->10, CTscan with SBO, unclear transition point and no clear bowel ischemia identified. Bibasilar pulmonary consolidation and hoarsness may be a sequela of an aspiration. POD#6 s/p Exploratory Laparotomy, segmental ressection of SB and primary stapled anastomosis for strangulated RIH. spiking fevers 101, likely worsening pneumonia. Patient had [address] scan showed worsening consolidation of the lower lobes, SB anastomosis is intact, obstruction is relieved. IR is considering a thoracentesis. ICU management continue quintero NGT feeds trickle IV antibiotics per ID GI and DVT prophylaxsis will follow This patient is critically ill. Time spent reviewing chart, examining patient, talking with providers and/or family and documentation is 45 minutes Code(s): K40.30 - UNIL INGUINAL HERNIA, W OBST, W/O GANGR, NOT SPCF RECUR (2) Incarcerated left inguinal hernia Code(s): K40.30 - UNIL INGUINAL HERNIA, W OBST, W/O GANGR, NOT SPCF RECUR (3) BPH (benign prostatic hyperplasia) Code(s): N40.0 - BENIGN PROSTATIC HYPERPLASIA WITHOUT LOWER URINRY TRACT SYMP Qualifiers: Lower urinary tract symptom presence: symptoms present Lower urinary tract symptom detail: urinary frequency Qualified Code(s): N40.1 - Benign prostatic hyperplasia with lower urinary tract symptoms; R35.0 - Frequency of micturition ; R35.0 - Frequency of micturition (4) DDD (degenerative disc disease), cervical Code(s): M50.30 - OTHER CERVICAL DISC DEGENERATION, UNSP CERVICAL REGION (5) SBO (small bowel obstruction) Code(s): K56.609 - UNSP INTESTNL OBST, UNSP TO PARTIAL VERSUS COMPLETE OBST (6) Aspiration pneumonia of both lower lobes due to gastric secretions Code(s): J69.0 - PNEUMONITIS DUE TO INHALATION OF FOOD AND VOMIT
[2018-03-18] MEDS: DEXTROSE 5%-LACTATED RINGERS 1,000 ML IV SCH (12:00)
[2018-03-18] MEDS: VANCOMYCIN 1,250 MG in DEXTROSE 5%-WATER - 250 ML IVPB SCH (15:36)
--- NOTE | 2018-03-18 15:53 | PN ---
Progress Note, Physician History of Present Illness: patient stable low grade spike but relatively has remained afebrile continues to be intubated and sedated - Current Medication List Current Medications: Active Medications Acetaminophen (Ofirmev Injection -) 1,000 mg IVPB Q6H PRN PRN Reason: FEVER Last Admin: 03/17/18 22:39 Dose: 1,000 mg Chlorhexidine Gluconate (Peridex -) 15 ml MM BID JUDY Last Admin: 03/18/18 09:36 Dose: 15 ml Chlorhexidine Gluconate (Hibiclens For Decolonization -) 1 applic TP HS JUDY Last Admin: 03/17/18 21:24 Dose: 1 applic Heparin Sodium (Porcine) (Heparin -) 5,000 unit SQ TID JUDY Last Admin: 03/18/18 13:31 Dose: 5,000 unit Propofol (Diprivan -) 1,000,000 mcg in 100 mls @ 4.736 mls/hr IV TITR JUDY; Protocol Last Admin: 03/18/18 04:20 Dose: Not Given Fentanyl 500 mcg/ Dextrose 100 mls @ 10 mls/hr IVPB TITR JUDY; Protocol Last Admin: 03/18/18 06:43 Dose: Not Given Norepinephrine Bitartrate 8, (000 mcg/ Dextrose) 500 mls @ 18.75 mls/hr IV ASDIR JUDY; Protocol Last Admin: 03/18/18 06:43 Dose: Not Given Dextrose/Lactated Ringer's (D5-Lr -) 1,000 mls @ 50 mls/hr IV ASDIR JUDY Last Admin: 03/18/18 12:00 Dose: 50 mls/hr Piperacillin Sod/Tazobactam (Sod 4.5 gm/ Dextrose) 100 mls @ 200 mls/hr IVPB Q8H-IV JUDY; Protocol Last Admin: 03/18/18 09:11 Dose: 200 mls/hr Vancomycin HCl 1,250 mg/ (Dextrose) 250 mls @ 250 mls/2 hr IVPB Q24H JUDY; Protocol Last Admin: 03/18/18 15:36 Dose: 250 mls/2 hr Ondansetron HCl (Zofran Injection) 4 mg IVPUSH Q6H PRN PRN Reason: NAUSEA Pantoprazole Sodium (Protonix Iv) 40 mg IVPUSH DAILY JUDY Last Admin: 03/18/18 09:11 Dose: 40 mg - Objective Vital Signs: Vital Signs Temperature 99.0 F 03/18/18 14:00 Pulse Rate 82 03/18/18 14:00 Respiratory Rate 24 03/18/18 15:38 Blood Pressure 120/64 03/18/18 14:00 O2 Sat by Pulse Oximetry (%) 92 L 03/18/18 09:00 Constitutional: Yes: Other Cardiovascular: Yes: Regular Rate and Rhythm Respiratory: Yes: Intubated, Mechanically Ventilated Gastrointestinal: Yes: Soft, Hypoactive Bowel Sounds Musculoskeletal: Yes: WNL Extremities: Yes: WNL Wound/Incision: Yes: Clean/Dry, Other Neurological: Yes: Other Labs: CBC, BMP 03/18/18 05:00 03/18/18 05:00 INR, PTT INR 1.19 (0.82-1.09) H 03/12/18 20:01 Assessment/Plan Problem List - Problems (1) Strangulated inguinal hernia Pulmonary evaluation - weaning today? GI Evaluation - Tbili 3.5, 3.6 BP goal MAP 65-70, has a stapled small bowel anastomosis avoid lwo flow states will follow Code(s): K40.30 - UNIL INGUINAL HERNIA, W OBST, W/O GANGR, NOT SPCF RECUR (2) Incarcerated left inguinal hernia Code(s): K40.30 - UNIL INGUINAL HERNIA, W OBST, W/O GANGR, NOT SPCF RECUR (3) BPH (benign prostatic hyperplasia) Code(s): N40.0 - BENIGN PROSTATIC HYPERPLASIA WITHOUT LOWER URINRY TRACT SYMP Qualifiers: Lower urinary tract symptom presence: symptoms present Lower urinary tract symptom detail: urinary frequency Qualified Code(s): N40.1 - Benign prostatic hyperplasia with lower urinary tract symptoms; R35.0 - Frequency of micturition ; R35.0 - Frequency of micturition (4) DDD (degenerative disc disease), cervical Code(s): M50.30 - OTHER CERVICAL DISC DEGENERATION, UNSP CERVICAL REGION (5) SBO (small bowel obstruction) Code(s): K56.609 - UNSP INTESTNL OBST, UNSP TO PARTIAL VERSUS COMPLETE OBST (6) Aspiration pneumonia of both lower lobes due to gastric secretions Code(s): J69.0 - PNEUMONITIS DUE TO INHALATION OF FOOD AND VOMIT plan continue abx monitor for fevers monitor vent setting rest as per icu patient improving cc 40 min
--- NOTE | 2018-03-18 18:31 | PN ---
Teaching Attending Note Name of Resident: Mukul White ATTENDING PHYSICIAN STATEMENT I saw and evaluated the patient. I reviewed the resident's note and discussed the case with the resident. I agree with the resident's findings and plan as documented. SUBJECTIVE: Patient sedated on vent. OBJECTIVE: Vital Signs Period Temp Pulse Resp BP Sys/Ceballos Pulse Ox Last 24 Hr 99 F-100.6 F 79-111 11-26 93-136/50-67 91-99 HEART: S1S2, RRR LUNGS: Bilateral rhonchi ABDOMEN: Soft, non-distended, normal BS EXTREMITIES: trace edema Laboratory Results - last 24 hr 03/18/18 03/18/18 05:00 05:00 WBC 13.2 H RBC 4.48 Hgb 13.6 Hct 41.3 MCV 92.2 MCH 30.3 MCHC 32.9 RDW 13.9 Plt Count 226 D MPV 8.9 Sodium 141 Potassium 4.2 Chloride 105 Carbon Dioxide 31 Anion Gap 5 L BUN 26 H Creatinine 0.8 Creat Clearance w eGFR > 60 Random Glucose 112 H Calcium 6.7 L* Phosphorus 3.1 D Magnesium 2.4 Total Bilirubin 1.6 H AST 196 H ALT 160 H Alkaline Phosphatase 77 Total Protein 4.1 L Albumin 1.3 L Current Medications Generic Name Dose Route Start Last Admin Trade Name Freq PRN Reason Stop Dose Admin Acetaminophen 1,000 mg 03/17/18 18:49 03/17/18 22:39 Ofirmev Injection - IVPB 1,000 mg Q6H PRN Administration FEVER Chlorhexidine Gluconate 15 ml 03/13/18 10:00 03/18/18 09:36 Peridex - MM 15 ml BID JUDY Administration Chlorhexidine Gluconate 1 applic 03/13/18 22:00 03/17/18 21:24 Hibiclens For Decolonization - TP 1 applic HS JDUY Administration Heparin Sodium (Porcine) 5,000 unit 03/13/18 14:00 03/18/18 13:31 Heparin - SQ 5,000 unit TID JUDY Administration Propofol 1,000,000 mcg in 100 mls @ 4.736 mls/hr 03/13/18 04:00 03/18/18 04: 20 Diprivan - IV Not Given TITR JUDY Protocol 10 MCG/KG/MIN Fentanyl 500 mcg/ Dextrose 100 mls @ 10 mls/hr 03/13/18 05:15 03/18/18 06:43 IVPB Not Given TITR JUDY Protocol 50 MCG/HR Norepinephrine Bitartrate 8, 500 mls @ 18.75 mls/hr 03/13/18 05:15 03/18/18 06:43 000 mcg/ Dextrose IV Not Given ASDIR JUDY Protocol 5 MCG/MIN Dextrose/Lactated Ringer's 1,000 mls @ 50 mls/hr 03/16/18 11:51 03/18/18 12: 00 D5-Lr - IV 50 mls/hr ASDIR JUDY Administration Piperacillin Sod/Tazobactam 100 mls @ 200 mls/hr 03/17/18 18:00 03/18/18 18: 14 Sod 4.5 gm/ Dextrose IVPB 200 mls/hr Q8H-IV JUDY Administration Protocol Vancomycin HCl 1,250 mg/ 250 mls @ 250 mls/2 hr 03/17/18 16:00 03/18/18 15:36 Dextrose IVPB 250 mls/2 hr Q24H JUDY Administration Protocol Ondansetron HCl 4 mg 03/13/18 04:30 Zofran Injection IVPUSH Q6H PRN NAUSEA Pantoprazole Sodium 40 mg 03/13/18 10:00 03/18/18 09:11 Protonix Iv IVPUSH 40 mg DAILY JUDY Administration ASSESSMENT AND PLAN: This is an 82 year old man with a history of DDD, GERD, diverticulosis, BPH who presented to the ED with abdominal pain and vomiting. 1. Acute hypoxic respiratory failure secondary to sepsis, aspiration pneumonia, ARDS - Continue vent support - Continue Zosyn, Vancomycin 2. Septic shock - Resolved - Off pressors - Continue IV fluid 3. SBO with ischemic bowel - s/p exploratory laparotomy, segmental terminal ileum resection with primary anastomosis 03/13 4. Acute kidney injury - Resolved 5. Hypoalbuminemia 6. Hypocalcemia - Corrected calcium is 8.9 7. Stress ulcer prophylaxis - Continue Protonix 8. DVT prophylaxis - Continue heparin subq The care of this patient involved high complexity decision making to prevent further life threatening deterioration of the patient's condition and/or to evaluate & treat vital organ system(s) failure or risk of failure. Critical care time spent in reviewing chart, evaluating patient and formulating plan - 35 minutes.
[2018-03-18] MEDS: CHLORHEXIDINE GLUCONATE 4% CLEANSER FOR DECOLONIZATION TP SCH (21:19)
[2018-03-18] MEDS ORDERED: fentaNYL CITRATE 250 MCG/5 ML VIAL ONE (22:37)
[2018-03-19] MEDS: PIPERACILLIN/TAZOB 4.5 GM 4.5 GM in DEXTROSE 5%-WATER 100 ML IVPB SCH ×3 (01:11→18:08)
[2018-03-19] MEDS: PROPOFOL 1,000,000 MCG/100 ML VIAL IV SCH (04:00)
[2018-03-19] MEDS: FENTANYL INJECTION 500 MCG in DEXTROSE 5%-WATER - 90 ML IVPB SCH ×2 (05:15→20:05)
[2018-03-19] MEDS: HEPARIN NA (PORCINE) 5,000 UNITS/ML 1ML VIAL SQ SCH ×2 (05:39→14:15)
[2018-03-19 06:56] LABS: HEMATOCRIT 39.6 % (35.4-49); HEMOGLOBIN 13.1 GM/dL (11.7-16.9); MCH 30.2 pg (25.7-33.7); MEAN CELL VOLUME 91.6 fl (80-96); MEAN PLT VOLUME 9.2 fl (7.5-11.1); PLATELET COUNT 213 K/MM3 (134-434); RBC 4.33 M/mm3 (4.00-5.60); RDW 13.8 % (11.9-15.9); WHITE BLOOD COUNT 14.9 K/mm3 (4.0-10.0)
[2018-03-19 07:17] LABS: CHLORIDE 104 mmol/L (98-107); POTASSIUM 4.1 mmol/L (3.5-5.1); SODIUM 141 mmol/L (136-145)
--- NOTE | 2018-03-19 07:34 | PN ---
Progress Note (short form) - Note Progress Note: S: -- Continues to have fevers, on high dose abx. Patient not doing well. -- CXR and clinical picture appears to be ARDS -- Going for gallbladder cholecystostomy today O: Vital Signs Period Temp Pulse Resp BP Sys/Ceballos Pulse Ox Last 24 Hr 99.9 F-100.9 F 69-83 12-18 93-114/47-63 94-96 Tele - No events GEN: Intubated, sedated HEENT: PERRL, no JVD CV: S1, S2, RRR LUNG: CTABL bilateral breath sounds ABD: Soft, NT, ND, normaoctive BS MSK: No edema, no erythema NEURO: Sedated A/P: 82yo relatively healthy M presented w/ SBO from an incarcerated R inguinal hernia after weight training # Acute Hypoxic RF from likely ARDS -- Presented hypoxic. Suspected aspiration pneumonia from constant emesis. Has + sputum cx, so was initially treated as bilateral pneumonia. Antibiotics likely improving his PNA, but patient now appears to have ARDS on CXR. [place] body weight is 70kg. Will start TV at 6cc/kg (420). One dose of Lasix 40mg IV. D/c IVF to avoid overflooding lungs. High PEEP. Want some permissive hypercapnea ( CO2 between 60-70). Current ABG is ideal. If respiratory status worsens, consider transfer to tertiary care center for possible ECMO. 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 POD6 from partial resection. -- Off of levophed, but fevers are persisting. Arora scan shows worsening bilateral PNA which was the likely source. On Vanc/Zosyn. Added Meropenem today for double GN coverage. No intraabdominal abscess collection on imaging. Other sources include gallbladder which appears to be distended. Since fevers are persisting, will plan to drain GB today, discussed w/ IR who agrees. # Prerenal ANATOLIY -- Improved w/ IVF # Transaminitis -- Either from low perfusion vs cholestatic from distended gallbladder. Tap GB today # FEN/PPx -- No IVF. Trickle Feeds. HSQ tid. PPI due to septic shock. # Dispo -- Remain in ICU. Prognosis tenuous. Transfer to [facility] if worsens. Hailee Hummel MD [id number] ICU Resident
[2018-03-19 07:35] LABS: ALBUMIN 1.2 g/dl (3.4-5.0); ALK PHOS 81 U/L (45-117); ANION GAP 3 (8-16); BILIRUBIN,TOTAL 1.6 mg/dL (0.2-1.0); BLOOD UREA NITROGEN 29 mg/dL (7-18); CO2 34 mmol/L (21-32); CREATININE 0.7 mg/dL (0.7-1.3); GLUCOSE,RANDOM 104 mg/dL (74-106); MAGNESIUM 2.4 mg/dL (1.8-2.4); PHOSPHOROUS 1.9 mg/dL (2.5-4.9); SGOT/AST 139 U/L (15-37); SGPT/ALT 122 U/L (12-78); TOT PROT 3.8 g/dl (6.4-8.2)
--- NOTE | 2018-03-19 07:50 | PN ---
Progress Note, Physician Chief Complaint: SBO History of Present Illness: 82 yo male PMH BPH, degernerative disc disease (cervical), diverticulosis, hemorrhoids presented to the ED with abdominal pain and vomiting for on day. He reports that he was weight training yesterday and developed some groin pain. He remains sedated and intubated in the ICU post op give poor saturation preop. He on low dose vasopressor support overnight. - Current Medication List Current Medications: Active Medications Acetaminophen (Ofirmev Injection -) 1,000 mg IVPB Q6H PRN PRN Reason: FEVER Last Admin: 03/17/18 22:39 Dose: 1,000 mg Chlorhexidine Gluconate (Peridex -) 15 ml MM BID JUDY Last Admin: 03/18/18 21:19 Dose: 15 ml Chlorhexidine Gluconate (Hibiclens For Decolonization -) 1 applic TP HS JUDY Last Admin: 03/18/18 21:19 Dose: 1 applic Heparin Sodium (Porcine) (Heparin -) 5,000 unit SQ TID JUDY Last Admin: 03/19/18 05:39 Dose: 5,000 unit Propofol (Diprivan -) 1,000,000 mcg in 100 mls @ 4.736 mls/hr IV TITR JUDY; Protocol Last Admin: 03/19/18 04:00 Dose: 25 mcg/kg/min, 11.839 mls/hr Fentanyl 500 mcg/ Dextrose 100 mls @ 10 mls/hr IVPB TITR JUDY; Protocol Last Admin: 03/19/18 05:15 Dose: 10 mls/hr Dextrose/Lactated Ringer's (D5-Lr -) 1,000 mls @ 50 mls/hr IV ASDIR JUDY Last Admin: 03/18/18 12:00 Dose: 50 mls/hr Piperacillin Sod/Tazobactam (Sod 4.5 gm/ Dextrose) 100 mls @ 200 mls/hr IVPB Q8H-IV JUDY; Protocol Last Admin: 03/19/18 01:11 Dose: 200 mls/hr Vancomycin HCl 1,250 mg/ (Dextrose) 250 mls @ 250 mls/2 hr IVPB Q24H JUDY; Protocol Last Admin: 03/18/18 15:36 Dose: 250 mls/2 hr Ondansetron HCl (Zofran Injection) 4 mg IVPUSH Q6H PRN PRN Reason: NAUSEA Pantoprazole Sodium (Protonix Iv) 40 mg IVPUSH DAILY [facility] Last Admin: 03/18/18 09:11 Dose: 40 mg - Objective Vital Signs: Vital Signs Temperature 99.4 F 03/19/18 06:00 Pulse Rate 75 03/19/18 06:00 Respiratory Rate 21 03/19/18 06:51 Blood Pressure 90/54 03/19/18 06:00 O2 Sat by Pulse Oximetry (%) 92 L 03/18/18 21:00 Vital Signs Period Temp Pulse Resp BP Sys/Ceballos Pulse Ox Last 24 Hr 99.0 F-100.5 F 74-105 14-26 90-135/48-67 91-92 Intake & Output 03/18/18 03/18/18 03/19/18 15:59 23:59 07:59 Intake Total 2289.2 742.8 Output Total 300 300 300 Balance -300 1989.2 442.8 Weight 195 lb 3.2 oz Intake: IV 939.2 542.8 D5-Lr - 1,000 ml @ 50 mls 800 400 /hr IV ASDIR JUDY Rx#: [id number] DIPRIVAN - 1,000,000 mcg 139.2 142.8 In 100 ml @ 10 MCG/KG/MIN 4.736 mls/hr IV TITR JUDY Rx#:[id number] Levophed - 8,000 Mcg In 0 D5w - 492 ml @ 5 MCG/MIN 18.75 mls/hr IV ASDIR JUDY Rx#:[id number] IVPB 350 200 Oral 1000 Output: Urine 300 300 300 Quintero 300 300 300 Other: Voiding Method Indwelling Catheter Indwelling Catheter Indwelling Catheter Bowel Movement No No # Bowel Movements 1 Weight Measurement Method Built in [facility] Constitutional: Yes: Well Nourished, No Distress, Calm Eyes: Yes: Conjunctiva Clear, EOM Intact HENT: Yes: Atraumatic, Normocephalic Neck: Yes: Supple, Trachea Midline Cardiovascular: Yes: Regular Rate and Rhythm, S1, S2 Respiratory: Yes: Regular, Diminished, Mechanically Ventilated, Rales, Rhonchi Gastrointestinal: Yes: Normal Bowel Sounds, Soft. No: Tenderness ...Rectal Exam: Yes: Deferred Genitourinary: No: CVA Tenderness - Left, CVA Tenderness - Right Extremities: No: Cool, Cyanosis Edema: Yes Edema: LUE: 1+, RUE: 1+, LLE: 2+, RLE: 2+ Peripheral Pulses WNL: Yes Peripheral Pulses: Left Radial: 2+, Right Radial: 2+, Left Doralis Pedis: 2+, Right Dorsalis Pedis: 2+, Left Femoral: 2+, Right Femoral: 2+ Wound/Incision: Yes: Clean/Dry, Well Approximated, Albino Intact, Open to air Neurological: Yes: Alert, Oriented Psychiatric: Yes: Alert, Oriented Labs: CBC, BMP 03/19/18 05:20 03/19/18 05:20 INR, PTT INR 1.19 (0.82-1.09) H 03/12/18 20:01 Problem List - Problems (1) Strangulated inguinal hernia Assessment/Plan: 82yo male MMP relatively healthy with SBO abdominal pain non reducible LIH, Lactic acid 3.4->6.9->1.8->1.5, Tbili 1.8, WBC 17->10, CTscan with SBO, unclear transition point and no clear bowel ischemia identified. Bibasilar pulmonary consolidation and hoarsness may be a sequela of an aspiration. POD#6 s/p Exploratory Laparotomy, segmental ressection of SB and primary stapled anastomosis for strangulated RIH. spiking fevers 101, likely worsening pneumonia. Patient had [address] scan showed worsening consolidation of the lower lobes, SB anastomosis is intact, obstruction is relieved. IR did a percutaneous cholecystostomy. ICU management continue quintero NGT feeds trickle IV antibiotics per ID GI and DVT prophylaxsis will follow This patient is critically ill. Time spent reviewing chart, examining patient, talking with providers and/or family and documentation is 45 minutes Code(s): K40.30 - UNIL INGUINAL HERNIA, W OBST, W/O GANGR, NOT SPCF RECUR (2) Incarcerated left inguinal hernia Code(s): K40.30 - UNIL INGUINAL HERNIA, W OBST, W/O GANGR, NOT SPCF RECUR (3) BPH (benign prostatic hyperplasia) Code(s): N40.0 - BENIGN PROSTATIC HYPERPLASIA WITHOUT LOWER URINRY TRACT SYMP Qualifiers: Lower urinary tract symptom presence: symptoms present Lower urinary tract symptom detail: urinary frequency Qualified Code(s): N40.1 - Benign prostatic hyperplasia with lower urinary tract symptoms; R35.0 - Frequency of micturition ; R35.0 - Frequency of micturition (4) DDD (degenerative disc disease), cervical Code(s): M50.30 - OTHER CERVICAL DISC DEGENERATION, UNSP CERVICAL REGION (5) SBO (small bowel obstruction) Code(s): K56.609 - UNSP INTESTNL OBST, UNSP TO PARTIAL VERSUS COMPLETE OBST (6) Aspiration pneumonia of both lower lobes due to gastric secretions Code(s): J69.0 - PNEUMONITIS DUE TO INHALATION OF FOOD AND VOMIT
[2018-03-19] MEDS ORDERED: PT OWN MED DRAWER 7, Y5N ONE ×3 (08:17→16:26)
[2018-03-19] MEDS ORDERED: PIPERACILLIN/TAZOBACTAM 4.5 GM VIAL IVPB ONE ×2 (08:18→17:12)
[2018-03-19] MEDS ORDERED: DEXTROSE 5%-WATER 100 ML IVPB ONE ×2 (08:18→17:12)
--- NOTE | 2018-03-19 09:06 | PN ---
Physical Exam: SUBJECTIVE: No acute events overnight. during AM, pt started to develop hypoxia down to 78%. Pt was suctioned and repositioned and had slight increase and ultimately ventilator settings were adjusted to bring pt back to 90% SpO2. Pt currently off levophed gtt at this point; pt remains intubated and sedated. OBJECTIVE: Vital Signs Period Temp Pulse Resp BP Sys/Ceballos Pulse Ox Last 24 Hr 99.0 F-100.5 F 74-105 14-26 90-135/48-64 91-92 GENERAL: NAD, intubated and sedated HEENT: Pupils decreased in size with reactivity, NG in place, moist mucous membranes, ETT noted Neck: R IJ line site C/D/I, JVD remains LUNGS: Crackles and rhonchi at b/l bases with diminished breath sounds. AC mode : TV 450, PEEP 11, FiO2 60%, RR 12 HEART: RRR, S1, S2 without murmur ABDOMEN: Soft, hypoactive BS, nondistended, midline incision C/D/I with closing panda, no masses palpated EXTREMITIES: 2+ DP pulses, warm, trace ankle and upper extremity edema noted SKIN: Warm, dry, no rashes noted Laboratory Results - last 24 hr 03/19/18 03/19/18 05:20 05:20 WBC 14.9 H RBC 4.33 Hgb 13.1 Hct 39.6 MCV 91.6 MCH 30.2 MCHC 33.0 RDW 13.8 Plt Count 213 MPV 9.2 Sodium 141 Potassium 4.1 Chloride 104 Carbon Dioxide 34 H Anion Gap 3 L BUN 29 H Creatinine 0.7 Creat Clearance w eGFR > 60 Random Glucose 104 Calcium 7.0 L Phosphorus 1.9 L D Magnesium 2.4 Total Bilirubin 1.6 H AST 139 H D ALT 122 H D Alkaline Phosphatase 81 Total Protein 3.8 L Albumin 1.2 L Active Medications Generic Name Dose Route Start Last Admin Trade Name Freq PRN Reason Stop Dose Admin Acetaminophen 1,000 mg 03/17/18 18:49 03/17/18 22:39 Ofirmev Injection - IVPB 1,000 mg Q6H PRN Administration FEVER Chlorhexidine Gluconate 15 ml 03/13/18 10:00 03/18/18 21:19 Peridex - MM 15 ml BID JUDY Administration Chlorhexidine Gluconate 1 applic 03/13/18 22:00 03/18/18 21:19 Hibiclens For Decolonization - TP 1 applic HS JUDY Administration Heparin Sodium (Porcine) 5,000 unit 03/13/18 14:00 03/19/18 05:39 Heparin - SQ 5,000 unit TID JUDY Administration Propofol 1,000,000 mcg in 100 mls @ 4.736 mls/hr 03/13/18 04:00 03/19/18 04: 00 Diprivan - IV 25 mcg/kg/min TITR JUDY 11.839 mls/hr Administration Protocol 10 MCG/KG/MIN Fentanyl 500 mcg/ Dextrose 100 mls @ 10 mls/hr 03/13/18 05:15 03/19/18 05:15 IVPB 10 mls/hr TITR JUDY Administration Protocol 50 MCG/HR Dextrose/Lactated Ringer's 1,000 mls @ 50 mls/hr 03/16/18 11:51 03/18/18 12: 00 D5-Lr - IV 50 mls/hr ASDIR JUDY Administration Piperacillin Sod/Tazobactam 100 mls @ 200 mls/hr 03/17/18 18:00 03/19/18 01: 11 Sod 4.5 gm/ Dextrose IVPB 200 mls/hr Q8H-IV JUDY Administration Protocol Vancomycin HCl 1,250 mg/ 250 mls @ 250 mls/2 hr 03/17/18 16:00 03/18/18 15:36 Dextrose IVPB 250 mls/2 hr Q24H JUDY Administration Protocol Ondansetron HCl 4 mg 03/13/18 04:30 Zofran Injection IVPUSH Q6H PRN NAUSEA Pantoprazole Sodium 40 mg 03/13/18 10:00 03/18/18 09:11 Protonix Iv IVPUSH 40 mg DAILY JUDY Administration ASSESSMENT/PLAN: 1) Acute hypoxic respiratory failure --ARDS --CXR showing bilateral patchy infiltrates w/o effusions --Low TV protocol in place; TV 420, PEEP 13 --Maintain SpO2 >90% --Discontinue LR --CVP goal now ~4 2) Septic shock 2/2 to bowel ischemia in addition to PNA --Suspected aspiration PNA as evident from sore throat upon admission -- MAP goal still 65-70 to prevent relative hypotension --Continue Zosyn 4.5gm q8h (Day 8) --ID on board --Continue Vancomycin 1.25gm qdaily (day 3) --cultures showing serratia, group D strep 3) Elevated LFTs --LFTs remain elevated, however given ARDS picture would be prudent to perform percutaneous Cholecystostomy given abnormal GB --Pt received heparin SQ and C-tube could not be placed --Hold heparin overnight --Plan for C-tube tomorrow --Continue to trend 4) ANATOLIY --Prerenal in etiology --FENa 0.0% --RESOLVED (BUN/Cr 18/0.9) FEN: Fluids: None Electrolyte abnormalities: None today Nutrition: Hold feeds PPX: DVT - Heparin Sq on hold GI - Protonix 40mg IVP daily Dispo: Continue ICU monitoring Case discussed with Dr. Madsen and ICU team Mukul White, DO - IM PGY-1 Visit type - Emergency Visit Emergency Visit: No - New Patient This patient is new to me today: No - Critical Care Critical Care patient: Yes Total Critical Care Time (in minutes): 45 Critical Care Statement: The care of this patient involved high complexity decision making to prevent further life threatening deterioration of the patient 's condition and/or to evaluate & treat vital organ system(s) failure or risk of failure.
[2018-03-19] MEDS ORDERED: POTASSIUM PHOSPHATE 20 MM in DEXTROSE 5%-WATER - 250 ML IVPB ONE (09:18)
[2018-03-19] MEDS: PANTOPRAZOLE SODIUM 40 MG VIAL IVPUSH SCH (09:57)
[2018-03-19] MEDS: CHLORHEXIDINE GLUCONATE 0.12% 15ML CUP MM SCH ×2 (09:57→21:36)
[2018-03-19] MEDS: FUROSEMIDE 40 MG/4 ML INJECTABLE VIAL IVPUSH ONE ×2 (12:17→14:12)
[2018-03-19] MEDS: DEXTROSE 5%-LACTATED RINGERS 1,000 ML IV SCH (12:17)
--- NOTE | 2018-03-19 12:24 | PN ---
Teaching Attending Note Name of Resident: Hailee Hummel ATTENDING PHYSICIAN STATEMENT I saw and evaluated the patient. I reviewed the resident's note and discussed the case with the resident. I agree with the resident's findings and plan as documented. SUBJECTIVE: Patient seen and examined in the ICU. Remains intubated, sedated. Off pressors. Increasing oxygenation requirements. CXR: ARDS pattern Intake & Output 03/16/18 03/17/18 03/18/18 03/19/18 23:59 23:59 23:59 23:59 Intake Total 2388.1 2393.6 2875.4 742.8 Output Total 500 700 900 300 Balance 1888.1 1693.6 1975.4 442.8 Weight 183 lb 186 lb 8 oz 190 lb 3.2 oz 195 lb 3.2 oz Last Vital Signs Temp Pulse Resp BP Pulse Ox 99.6 F 85 22 102/52 87 L 03/19/18 10:00 03/19/18 10:59 03/19/18 10:59 03/19/18 10:00 03/19/18 10:59 Active Medications Acetaminophen (Ofirmev Injection -) 1,000 mg IVPB Q6H PRN PRN Reason: FEVER Last Admin: 03/17/18 22:39 Dose: 1,000 mg Chlorhexidine Gluconate (Peridex -) 15 ml MM BID JUDY Last Admin: 03/19/18 09:57 Dose: 15 ml Chlorhexidine Gluconate (Hibiclens For Decolonization -) 1 applic TP HS JUDY Last Admin: 03/18/18 21:19 Dose: 1 applic Furosemide (Lasix Injection -) 40 mg IVPUSH ONCE ONE Stop: 03/19/18 12:13 Heparin Sodium (Porcine) (Heparin -) 5,000 unit SQ TID JUDY Last Admin: 03/19/18 05:39 Dose: 5,000 unit Propofol (Diprivan -) 1,000,000 mcg in 100 mls @ 4.736 mls/hr IV TITR JUDY; Protocol Last Admin: 03/19/18 04:00 Dose: 25 mcg/kg/min, 11.839 mls/hr Fentanyl 500 mcg/ Dextrose 100 mls @ 10 mls/hr IVPB TITR JUDY; Protocol Last Admin: 03/19/18 05:15 Dose: 10 mls/hr Dextrose/Lactated Ringer's (D5-Lr -) 1,000 mls @ 50 mls/hr IV ASDIR JUDY Last Admin: 03/18/18 12:00 Dose: 50 mls/hr Piperacillin Sod/Tazobactam (Sod 4.5 gm/ Dextrose) 100 mls @ 200 mls/hr IVPB Q8H-IV JUDY; Protocol Last Admin: 03/19/18 09:56 Dose: 200 mls/hr Vancomycin HCl 1,250 mg/ (Dextrose) 250 mls @ 250 mls/2 hr IVPB Q24H JUDY; Protocol Last Admin: 03/18/18 15:36 Dose: 250 mls/2 hr Potassium Phosphate 20 mm/ (Dextrose) 256.6667 mls @ 62.5 mls/hr IVPB ONCE ONE Stop: 03/19/18 13:24 Ondansetron HCl (Zofran Injection) 4 mg IVPUSH Q6H PRN PRN Reason: NAUSEA Pantoprazole Sodium (Protonix Iv) 40 mg IVPUSH DAILY [facility] Last Admin: 03/19/18 09:57 Dose: 40 mg Gen: intubated, sedated Heart: RRR Lung: scattered rhonchi Abd: soft, dressings intact, (+) BS Ext: + edema Laboratory Results - last 24 hr 03/19/18 03/19/18 05:20 05:20 WBC 14.9 H RBC 4.33 Hgb 13.1 Hct 39.6 MCV 91.6 MCH 30.2 MCHC 33.0 RDW 13.8 Plt Count 213 MPV 9.2 Sodium 141 Potassium 4.1 Chloride 104 Carbon Dioxide 34 H Anion Gap 3 L BUN 29 H Creatinine 0.7 Creat Clearance w eGFR > 60 Random Glucose 104 Calcium 7.0 L Phosphorus 1.9 L D Magnesium 2.4 Total Bilirubin 1.6 H AST 139 H D ALT 122 H D Alkaline Phosphatase 81 Total Protein 3.8 L Albumin 1.2 L IMP: ARDS Acute Hypoxic Respiratory Failure Probable Aspiration Pneumonitis Incarcerated Inguinal Hernia s/p ex-lap/segmental terminal ileum resection/primary anastamosis 03/13 Septic Shock Acute Kidney Injury improving Lactic Acidosis Diverticulosis BPH (?) Acalculus Cholecystitis - Lung protective ventilation based on 6cc/kg ideal body weight - Lasix - Consult IR for possible perc drain placement - continue antibiotics per ID - f/u cultures - Minimize IVF to avoid worsening capillary leak - Monitor off pressors - monitor urine output, creatinine - keep Pplat <30 - taper FiO2, PEEP to keep SpO2 >90% - DVT/GI prophylaxis - May need to transfer to tertiary care for possible ECMO - continue ICU monitoring Dr Moreno Critical care time spent in reviewing chart, evaluating patient and formulating plan 36 min
[2018-03-19] MEDS ORDERED: fentaNYL CITRATE 250 MCG/5 ML VIAL ONE ×2 (12:28→19:58)
--- NOTE | 2018-03-19 13:17 | PN ---
Progress Note, Physician History of Present Illness: patient not doing well continues to be intubated and sedated requiring a lot of vent support today plan is to to do per cut choley tube family in the room - Current Medication List Current Medications: Active Medications Acetaminophen (Ofirmev Injection -) 1,000 mg IVPB Q6H PRN PRN Reason: FEVER Last Admin: 03/17/18 22:39 Dose: 1,000 mg Chlorhexidine Gluconate (Peridex -) 15 ml MM BID JUDY Last Admin: 03/19/18 09:57 Dose: 15 ml Chlorhexidine Gluconate (Hibiclens For Decolonization -) 1 applic TP HS JUDY Last Admin: 03/18/18 21:19 Dose: 1 applic Heparin Sodium (Porcine) (Heparin -) 5,000 unit SQ TID JUDY Last Admin: 03/19/18 05:39 Dose: 5,000 unit Propofol (Diprivan -) 1,000,000 mcg in 100 mls @ 4.736 mls/hr IV TITR JUDY; Protocol Last Admin: 03/19/18 04:00 Dose: 25 mcg/kg/min, 11.839 mls/hr Fentanyl 500 mcg/ Dextrose 100 mls @ 10 mls/hr IVPB TITR JUDY; Protocol Last Admin: 03/19/18 05:15 Dose: 10 mls/hr Piperacillin Sod/Tazobactam (Sod 4.5 gm/ Dextrose) 100 mls @ 200 mls/hr IVPB Q8H-IV JUDY; Protocol Last Admin: 03/19/18 09:56 Dose: 200 mls/hr Vancomycin HCl 1,250 mg/ (Dextrose) 250 mls @ 250 mls/2 hr IVPB Q24H JUDY; Protocol Last Admin: 03/18/18 15:36 Dose: 250 mls/2 hr Potassium Phosphate 20 mm/ (Dextrose) 256.6667 mls @ 62.5 mls/hr IVPB ONCE ONE Stop: 03/19/18 13:24 Last Admin: 03/19/18 12:52 Dose: 62.5 mls/hr Meropenem 1 gm/ Dextrose 100 mls @ 200 mls/hr IVPB ONCE ONE Stop: 03/19/18 13:41 Ondansetron HCl (Zofran Injection) 4 mg IVPUSH Q6H PRN PRN Reason: NAUSEA Pantoprazole Sodium (Protonix Iv) 40 mg IVPUSH DAILY JUDY Last Admin: 03/19/18 09:57 Dose: 40 mg - Objective Vital Signs: Vital Signs Temperature 99.6 F 03/19/18 10:00 Pulse Rate 95 H 03/19/18 12:00 Respiratory Rate 20 03/19/18 12:00 Blood Pressure 116/57 03/19/18 12:00 O2 Sat by Pulse Oximetry (%) 87 L 03/19/18 10:59 Constitutional: Yes: Other Cardiovascular: Yes: Regular Rate and Rhythm Respiratory: Yes: Intubated, Mechanically Ventilated, Poor Air Entry Gastrointestinal: Yes: Normal Bowel Sounds, Soft Musculoskeletal: Yes: WNL Extremities: Yes: WNL Neurological: Yes: Other Psychiatric: Yes: Other Labs: CBC, BMP 03/19/18 05:20 03/19/18 05:20 INR, PTT INR 1.19 (0.82-1.09) H 03/12/18 20:01 Assessment/Plan Problem List - Problems (1) Strangulated inguinal hernia Pulmonary evaluation - weaning today? GI Evaluation - Tbili 3.5, 3.6 BP goal MAP 65-70, has a stapled small bowel anastomosis avoid lwo flow states will follow Code(s): K40.30 - UNIL INGUINAL HERNIA, W OBST, W/O GANGR, NOT SPCF RECUR (2) Incarcerated left inguinal hernia Code(s): K40.30 - UNIL INGUINAL HERNIA, W OBST, W/O GANGR, NOT SPCF RECUR (3) BPH (benign prostatic hyperplasia) Code(s): N40.0 - BENIGN PROSTATIC HYPERPLASIA WITHOUT LOWER URINRY TRACT SYMP Qualifiers: Lower urinary tract symptom presence: symptoms present Lower urinary tract symptom detail: urinary frequency Qualified Code(s): N40.1 - Benign prostatic hyperplasia with lower urinary tract symptoms; R35.0 - Frequency of micturition ; R35.0 - Frequency of micturition (4) DDD (degenerative disc disease), cervical Code(s): M50.30 - OTHER CERVICAL DISC DEGENERATION, UNSP CERVICAL REGION (5) SBO (small bowel obstruction) Code(s): K56.609 - UNSP INTESTNL OBST, UNSP TO PARTIAL VERSUS COMPLETE OBST (6) Aspiration pneumonia of both lower lobes due to gastric secretions Code(s): J69.0 - PNEUMONITIS DUE TO INHALATION OF FOOD AND VOMIT r/o acalculus choley plan continue abx monitor for fevers monitor vent setting rest as per icu patient improving will give double gram negative coverage for now for choley tube today cc 40 min
[2018-03-19 13:23] LABS: ARTERIAL BLD GAS O2 SATURATION 93.9 % (90-98.9); ARTERIAL BLOOD GAS BASE EXCESS 4.9 meq/l (-2-2); ARTERIAL BLOOD GAS PCO2 62.3 mmHg (35-45); ARTERIAL BLOOD GAS PO2 72.8 mmHg (68-100); ARTERIAL BLOOD GAS pH 7.34 (7.35-7.45)
[2018-03-19 13:25] LABS: ALLENS TEST POSITIVE
[2018-03-19] MEDS ORDERED: MEROPENEM 1 GM in DEXTROSE 5%-WATER 100 ML IVPB ONE (14:00)
[2018-03-19 14:42] LABS: INR 1.36 (0.82-1.09); PROTHROMBIN TIME (PATIENT) 15.4 SEC (9.7-13.0)
[2018-03-19] MEDS: VANCOMYCIN 1,250 MG in DEXTROSE 5%-WATER - 250 ML IVPB SCH (16:28)
--- NOTE | 2018-03-19 17:01 | PROC ---
Central Line Insertion Indication: Poor Venous Access Risks and Benefits Explained: Yes Consent on Chart: Yes Central Line: Triple Lumen Catheter Anesthesia: 1% Lidocaine Sterile Technique: Yes Ultrasound Guided Assistance: Yes Position: Left Internal Jugular Post Insertion: Yes: Chest X-Ray Ordered Sterile Dressing Applied: Yes
[2018-03-19] MEDS ORDERED: MEROPENEM 1 GM in DEXTROSE 5%-WATER 100 ML IVPB SCH ×2 (18:00→22:00)
[2018-03-19] MEDS: MEROPENEM 1 GM in DEXTROSE 5%-WATER 100 ML IVPB SCH (18:08)
--- NOTE | 2018-03-19 18:52 | PN ---
Teaching Attending Note Name of Resident: Mukul White ATTENDING PHYSICIAN STATEMENT I saw and evaluated the patient. I reviewed the resident's note and discussed the case with the resident. I agree with the resident's findings and plan as documented. SUBJECTIVE: Patient is sedated on vent. OBJECTIVE: Vital Signs Period Temp Pulse Resp BP Sys/Ceballos Pulse Ox Last 24 Hr 99.2 F-100.5 F 74-95 14-25 90-123/48-68 87-92 HEART: S1S2, RRR LUNGS: Bilateral rhonchi ABDOMEN: Soft, non-distended, normal BS EXTREMITIES: Trace edema Laboratory Results - last 24 hr 03/19/18 03/19/18 03/19/18 05:20 05:20 13:05 WBC 14.9 H RBC 4.33 Hgb 13.1 Hct 39.6 MCV 91.6 MCH 30.2 MCHC 33.0 RDW 13.8 Plt Count 213 MPV 9.2 PT with INR 15.40 H INR 1.36 H Puncture Site ABG pH ABG pCO2 at Pt Temp ABG pO2 at Pt Temp ABG HCO3 ABG O2 Sat (Measured) ABG O2 Content ABG Base Excess Fernando Test Oxygen Flow Rate Sodium 141 Potassium 4.1 Chloride 104 Carbon Dioxide 34 H Anion Gap 3 L BUN 29 H Creatinine 0.7 Creat Clearance w eGFR > 60 Random Glucose 104 Calcium 7.0 L Phosphorus 1.9 L D Magnesium 2.4 Total Bilirubin 1.6 H AST 139 H D ALT 122 H D Alkaline Phosphatase 81 Total Protein 3.8 L Albumin 1.2 L 03/19/18 13:20 WBC RBC Hgb Hct MCV MCH MCHC RDW Plt Count MPV PT with INR INR Puncture Site Left radial ABG pH 7.34 L ABG pCO2 at Pt Temp 62.3 H* ABG pO2 at Pt Temp 72.8 ABG HCO3 32.6 H ABG O2 Sat (Measured) 93.9 ABG O2 Content 20.6 ABG Base Excess 4.9 H Fernando Test Positive Oxygen Flow Rate Yes Sodium Potassium Chloride Carbon Dioxide Anion Gap BUN Creatinine Creat Clearance w eGFR Random Glucose Calcium Phosphorus Magnesium Total Bilirubin AST ALT Alkaline Phosphatase Total Protein Albumin Current Medications Generic Name Dose Route Start Last Admin Trade Name Freq PRN Reason Stop Dose Admin Acetaminophen 1,000 mg 03/17/18 18:49 03/17/18 22:39 Ofirmev Injection - IVPB 1,000 mg Q6H PRN Administration FEVER Chlorhexidine Gluconate 15 ml 03/13/18 10:00 03/19/18 09:57 Peridex - MM 15 ml BID JUDY Administration Chlorhexidine Gluconate 1 applic 03/13/18 22:00 03/18/18 21:19 Hibiclens For Decolonization - TP 1 applic HS JUDY Administration Heparin Sodium (Porcine) 5,000 unit 03/13/18 14:00 03/19/18 14:15 Heparin - SQ 5,000 unit TID JUDY Administration Propofol 1,000,000 mcg in 100 mls @ 4.736 mls/hr 03/13/18 04:00 03/19/18 04: 00 Diprivan - IV 25 mcg/kg/min TITR JUDY 11.839 mls/hr Administration Protocol 10 MCG/KG/MIN Fentanyl 500 mcg/ Dextrose 100 mls @ 10 mls/hr 03/13/18 05:15 03/19/18 05:15 IVPB 10 mls/hr TITR JUDY Administration Protocol 50 MCG/HR Piperacillin Sod/Tazobactam 100 mls @ 200 mls/hr 03/17/18 18:00 03/19/18 18: 08 Sod 4.5 gm/ Dextrose IVPB 200 mls/hr Q8H-IV JUDY Administration Protocol Vancomycin HCl 1,250 mg/ 250 mls @ 250 mls/2 hr 03/17/18 16:00 03/19/18 16:28 Dextrose IVPB 250 mls/2 hr Q24H JUDY Administration Protocol Meropenem 1 gm/ Dextrose 100 mls @ 200 mls/hr 03/19/18 18:00 03/19/18 18:08 IVPB 200 mls/hr Q8H-IV JUDY Administration Ondansetron HCl 4 mg 03/13/18 04:30 Zofran Injection IVPUSH Q6H PRN NAUSEA Pantoprazole Sodium 40 mg 03/13/18 10:00 03/19/18 09:57 Protonix Iv IVPUSH 40 mg DAILY JUDY Administration ASSESSMENT AND PLAN: This is an 82 year old man with a history of DDD, GERD, diverticulosis, BPH who presented to the ED with abdominal pain and vomiting. 1. Acute hypoxic respiratory failure secondary to sepsis, aspiration pneumonia, ARDS - Continue vent support as per pulmonary/critical care - Continue Zosyn, Vancomycin - Meropenem added - Discontinue IV fluid - Start Lasix 2. Septic shock - Resolved - Off pressors 3. SBO with infarcted bowel - s/p exploratory laparotomy, segmental terminal ileum resection with primary anastomosis 03/13 4. Possible acalculous cholecystitis - Plan for percutaneous drainage by IR 5. Acute kidney injury - Resolved 5. Hypoalbuminemia 6. Pseudohypocalcemia - Corrected calcium is 9.2 7. Hypophosphatemia - Supplement phosphorus 8. Hepatic transaminitis - Improving 9. Stress ulcer prophylaxis - Continue Protonix 10. DVT prophylaxis - Continue heparin subq The care of this patient involved high complexity decision making to prevent further life threatening deterioration of the patient's condition and/or to evaluate & treat vital organ system(s) failure or risk of failure. Critical care time spent in reviewing chart, evaluating patient and formulating plan - 35 minutes.
--- NOTE | 2018-03-19 19:14 | PN ---
Progress Note (short form) - Note Progress Note: Patient with new onset A-fib, rate of 80. currently intubated and sedated. Vital Signs Temperature 99.2 F 03/19/18 14:00 Pulse Rate 84 03/19/18 18:00 Respiratory Rate 20 03/19/18 19:05 Blood Pressure 102/59 03/19/18 18:00 O2 Sat by Pulse Oximetry (%) 87 L 03/19/18 18:00 Orders: Trop EKG ECHO Cardiology consulted. Dr. Nava service called.
[2018-03-19] MEDS ORDERED: NOREPINEPHRINE BITARTRATE 4 MG/4 ML ML IV ONE (21:25)
[2018-03-19] MEDS: NOREPINEPHRINE BITARTRATE 8,000 MCG in DEXTROSE 5%-WATER - 492 ML IV SCH (21:34)
[2018-03-19] MEDS: CHLORHEXIDINE GLUCONATE 4% CLEANSER FOR DECOLONIZATION TP SCH (21:36)
[2018-03-19] MEDS ORDERED: PROPOFOL 1,000,000 MCG/100 ML VIAL ONE (21:51)
[2018-03-20] MEDS ORDERED: PT OWN MED DRAWER 7, Y5N ONE ×3 (00:49→17:31)
[2018-03-20] MEDS ORDERED: PIPERACILLIN/TAZOBACTAM 4.5 GM VIAL IVPB ONE ×3 (00:50→17:31)
[2018-03-20] MEDS ORDERED: DEXTROSE 5%-WATER 100 ML IVPB ONE ×3 (00:50→17:31)
[2018-03-20] MEDS: PIPERACILLIN/TAZOB 4.5 GM 4.5 GM in DEXTROSE 5%-WATER 100 ML IVPB SCH ×4 (01:04→17:38)
[2018-03-20] MEDS: MEROPENEM 1 GM in DEXTROSE 5%-WATER 100 ML IVPB SCH ×3 (01:04→19:57)
[2018-03-20 06:17] LABS: HEMOGLOBIN 14.3 GM/dL (11.7-16.9); MCH 30.6 pg (25.7-33.7); MCHC 33.3 g/dl (32.0-35.9); MEAN CELL VOLUME 91.7 fl (80-96); MEAN PLT VOLUME 8.9 fl (7.5-11.1); PLATELET COUNT 294 K/MM3 (134-434); RBC 4.69 M/mm3 (4.00-5.60); RDW 13.9 % (11.9-15.9); WHITE BLOOD COUNT 25.6 K/mm3 (4.0-10.0)
[2018-03-20 06:23] LABS: INR 1.39 (0.82-1.09); PROTHROMBIN TIME (PATIENT) 15.7 SEC (9.7-13.0)
[2018-03-20 06:30] LABS: ALLENS TEST POSITIVE; ARTERIAL BLD GAS O2 SATURATION 98.4 % (90-98.9); ARTERIAL BLOOD GAS BASE EXCESS 7.4 meq/l (-2-2); ARTERIAL BLOOD GAS PCO2 63.5 mmHg (35-45); ARTERIAL BLOOD GAS pH 7.36 (7.35-7.45)
[2018-03-20 06:38] LABS: ALBUMIN 1.2 g/dl (3.4-5.0); ANION GAP 6 (8-16); BLOOD UREA NITROGEN 26 mg/dL (7-18); CALCIUM 7.1 mg/dL (8.5-10.1); CHLORIDE 99 mmol/L (98-107); CO2 36 mmol/L (21-32); GLUCOSE,RANDOM 128 mg/dL (74-106); MAGNESIUM 2.2 mg/dL (1.8-2.4); POTASSIUM 3.8 mmol/L (3.5-5.1); SODIUM 141 mmol/L (136-145)
[2018-03-20 06:41] LABS: ALK PHOS 100 U/L (45-117); BILIRUBIN,TOTAL 2.3 mg/dL (0.2-1.0); CREATININE 0.8 mg/dL (0.7-1.3); PHOSPHOROUS 2.4 mg/dL (2.5-4.9); SGOT/AST 153 U/L (15-37); SGPT/ALT 114 U/L (12-78); TOT PROT 4.5 g/dl (6.4-8.2)
[2018-03-20] MEDS: FENTANYL INJECTION 500 MCG in DEXTROSE 5%-WATER - 90 ML IVPB SCH ×3 (06:55→17:43)
[2018-03-20] MEDS: PROPOFOL 1,000,000 MCG/100 ML VIAL IV SCH ×4 (06:55→17:35)
--- NOTE | 2018-03-20 06:59 | PN ---
Progress Note (short form) - Note Progress Note: S: -- Still febrile. Restarted levo last night, now up to 14mcg. -- Rhythm Aflutter (new onset) -- De-escalated FiO2 to 90%, still high PEEP -- Going for C tube placement today O: Vital Signs Period Temp Pulse Resp BP Sys/Ceballos Pulse Ox Last 24 Hr 98.9 F-100.0 F 71-95 18-22 74-123/40-68 87-94 Tele - No events GEN: Intubated, sedated HEENT: PERRL, no JVD CV: S1, S2, RRR LUNG: CTABL bilateral breath sounds ABD: Soft, NT, ND, normaoctive BS MSK: No edema, no erythema NEURO: Sedated A/P: 82yo relatively healthy M presented w/ SBO from an incarcerated R inguinal hernia after weight training # Acute Hypoxic RF from likely ARDS -- Presented hypoxic. Suspected aspiration pneumonia from emesis 2/2 strangulated hernia induced SBO. Initially treated as bilateral pna, started on abx. Now appears to have ARDS physiology on CXR. Keep high PEEP, low TV, low CVP , d/c IVF. Want some permissive hypercapnea (CO2 between 60-70). Current ABG shows improvement in oxygenation. 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 POD7 from partial resection. Fevers are persisting postop. Arora scan shows worsening bilateral PNA which was the likely source. On Vanc/Zosyn. Added Meropenem yesterday for double GN coverage. No intraabdominal abscess collection on imaging. Other sources include gallbladder which appears to be distended. GB was drained to r/o as a source. Cultures pending. # New onset Aflutter -- Rate controlled. High CHADSVasc. With cardio approval, will start hep ggt today # Prerenal ANATOLIY -- Improved w/ IVF # Transaminitis -- Likely cholestatic from distended gallbladder. Sludge in LEIF drain. # FEN/PPx -- No IVF. Tube feeds. Hep ggt. PPI # Dispo -- Remain in ICU. Prognosis tenuous. Transfer to [place] if worsens. Hailee Hummel MD pGY1 ICU Resident
[2018-03-20] MEDS ORDERED: NOREPINEPHRINE BITARTRATE 4 MG/4 ML ML IV ONE (08:34)
[2018-03-20] MEDS: NOREPINEPHRINE BITARTRATE 8,000 MCG in DEXTROSE 5%-WATER - 492 ML IV SCH ×3 (08:43→21:41)
[2018-03-20 08:44] LABS: ACANTHOCYTES 1+; PLATELET ESTIMATE NORMAL
[2018-03-20] MEDS ORDERED: fentaNYL CITRATE 250 MCG/5 ML VIAL ONE ×2 (08:49→17:30)
--- NOTE | 2018-03-20 12:00 | PN ---
Teaching Attending Note Name of Resident: Hailee Hummel ATTENDING PHYSICIAN STATEMENT I saw and evaluated the patient. I reviewed the resident's note and discussed the case with the resident. I agree with the resident's findings and plan as documented. SUBJECTIVE: Patient seen and examined in the ICU. New AFlutter overnight, rate controlled. Intubated, sedated. On 14 mcq NE. S/P Perc drain into GB by IR. CXR: Mildly improved ARDS pattern Intake & Output 03/17/18 03/18/18 03/19/18 03/20/18 23:59 23:59 23:59 23:59 Intake Total 2393.6 2875.4 1172.8 336 Output Total 144 791 8976 400 Balance 1693.6 1975.4 -2627.2 -64 Weight 186 lb 8 oz 190 lb 3.2 oz 195 lb 3.2 oz 190 lb 14.4 oz Last Vital Signs Temp Pulse Resp BP Pulse Ox 99.7 F H 95 H 12 125/71 96 03/20/18 10:04 03/20/18 11:27 03/20/18 11:27 03/20/18 11:27 03/20/18 11:27 Active Medications Acetaminophen (Ofirmev Injection -) 1,000 mg IVPB Q6H PRN PRN Reason: FEVER Last Admin: 03/17/18 22:39 Dose: 1,000 mg Chlorhexidine Gluconate (Peridex -) 15 ml MM BID JUDY Last Admin: 03/19/18 21:36 Dose: 15 ml Chlorhexidine Gluconate (Hibiclens For Decolonization -) 1 applic TP HS JUDY Last Admin: 03/19/18 21:36 Dose: 1 applic Heparin Sodium (Porcine) (Heparin -) 5,000 unit SQ TID JUDY Last Admin: 03/19/18 14:15 Dose: 5,000 unit Propofol (Diprivan -) 1,000,000 mcg in 100 mls @ 4.736 mls/hr IV TITR JUDY; Protocol Last Admin: 03/20/18 08:46 Dose: 40 mcg/kg/min, 18.942 mls/hr Fentanyl 500 mcg/ Dextrose 100 mls @ 10 mls/hr IVPB TITR JUDY; Protocol Last Admin: 03/20/18 08:51 Dose: 10 mls/hr Piperacillin Sod/Tazobactam (Sod 4.5 gm/ Dextrose) 100 mls @ 200 mls/hr IVPB Q8H-IV JUDY; Protocol Last Admin: 03/20/18 10:11 Dose: 200 mls/hr Vancomycin HCl 1,250 mg/ (Dextrose) 250 mls @ 250 mls/2 hr IVPB Q24H UJDY; Protocol Last Admin: 03/19/18 16:28 Dose: 250 mls/2 hr Meropenem 1 gm/ Dextrose 100 mls @ 200 mls/hr IVPB Q8H-IV JUDY Last Admin: 03/20/18 09:38 Dose: 200 mls/hr Norepinephrine Bitartrate 8, (000 mcg/ Dextrose) 500 mls @ 18.75 mls/hr IV TITR JUDY; Protocol Last Admin: 03/20/18 08:43 Dose: 14 mcg/min, 52.5 mls/hr Ondansetron HCl (Zofran Injection) 4 mg IVPUSH Q6H PRN PRN Reason: NAUSEA Pantoprazole Sodium (Protonix Iv) 40 mg IVPUSH DAILY JUDY Last Admin: 03/19/18 09:57 Dose: 40 mg Gen: intubated, sedated Heart: RRR Lung: scattered rhonchi Abd: soft, dressings intact, (+) BS Ext: + edema Laboratory Results - last 24 hr 03/19/18 03/19/18 03/19/18 13:05 13:20 20:09 WBC RBC Hgb Hct MCV MCH MCHC RDW Plt Count MPV Neutrophils % (Manual) Band Neutrophils % Lymphocytes % (Manual) Monocytes % (Manual) Eosinophils % (Manual) Basophils % (Manual) Myelocytes % (Man) Promyelocytes % (Man) Blast Cells % (Manual) Nucleated RBC % Metamyelocytes Platelet Estimate Acanthocytes (Spur) PT with INR 15.40 H INR 1.36 H Anticoagulation Therapy Puncture Site Left radial ABG pH 7.34 L ABG pCO2 at Pt Temp 62.3 H* ABG pO2 at Pt Temp 72.8 ABG HCO3 32.6 H ABG O2 Sat (Measured) 93.9 ABG O2 Content 20.6 ABG Base Excess 4.9 H Fernando Test Positive O2 Delivery Device Oxygen Flow Rate Yes Vent Mode Vent Rate Mechanical Rate PEEP Pressure Support Vent Sodium Potassium Chloride Carbon Dioxide Anion Gap BUN Creatinine Creat Clearance w eGFR Random Glucose Calcium Phosphorus Magnesium Total Bilirubin AST ALT Alkaline Phosphatase Creatine Kinase 327 H Creatine Kinase Index 2.0 CK-MB (CK-2) 6.806 H Troponin I 0.03 D Total Protein Albumin Random Vancomycin 03/20/18 03/20/18 03/20/18 05:55 05:55 05:55 WBC 25.6 H D RBC 4.69 Hgb 14.3 Hct 43.0 MCV 91.7 MCH 30.6 MCHC 33.3 RDW 13.9 Plt Count 294 D MPV 8.9 Neutrophils % (Manual) 88.0 H Band Neutrophils % 0.0 Lymphocytes % (Manual) 7.0 L Monocytes % (Manual) 0 L Eosinophils % (Manual) 3.0 Basophils % (Manual) 0.0 Myelocytes % (Man) 1 Promyelocytes % (Man) 0 Blast Cells % (Manual) 0 Nucleated RBC % 0 Metamyelocytes 0 Platelet Estimate Normal Acanthocytes (Spur) 1+ PT with INR INR Anticoagulation Therapy Puncture Site ABG pH ABG pCO2 at Pt Temp ABG pO2 at Pt Temp ABG HCO3 ABG O2 Sat (Measured) ABG O2 Content ABG Base Excess Fernando Test O2 Delivery Device Oxygen Flow Rate Vent Mode Vent Rate Mechanical Rate PEEP Pressure Support Vent Sodium 141 Potassium 3.8 Chloride 99 Carbon Dioxide 36 H Anion Gap 6 L BUN 26 H Creatinine 0.8 Creat Clearance w eGFR > 60 Random Glucose 128 H D Calcium 7.1 L Phosphorus 2.4 L D Magnesium 2.2 Total Bilirubin 2.3 H D AST 153 H ALT 114 H Alkaline Phosphatase 100 D Creatine Kinase Creatine Kinase Index CK-MB (CK-2) Troponin I Total Protein 4.5 L Albumin 1.2 L Random Vancomycin 7.608 03/20/18 03/20/18 05:55 06:15 WBC RBC Hgb Hct MCV MCH MCHC RDW Plt Count MPV Neutrophils % (Manual) Band Neutrophils % Lymphocytes % (Manual) Monocytes % (Manual) Eosinophils % (Manual) Basophils % (Manual) Myelocytes % (Man) Promyelocytes % (Man) Blast Cells % (Manual) Nucleated RBC % Metamyelocytes Platelet Estimate Acanthocytes (Spur) PT with INR 15.70 H INR 1.39 H Anticoagulation Therapy No Result Required. Puncture Site Right radial ABG pH 7.36 ABG pCO2 at Pt Temp 63.5 H* ABG pO2 at Pt Temp 118.0 H D ABG HCO3 34.9 H ABG O2 Sat (Measured) 98.4 ABG O2 Content 20.2 ABG Base Excess 7.4 H Fernando Test Positive O2 Delivery Device Vent Oxygen Flow Rate 100 Vent Mode No Result Required. Vent Rate 12 Mechanical Rate No Result Required. PEEP 13.0 Pressure Support Vent 420 Sodium Potassium Chloride Carbon Dioxide Anion Gap BUN Creatinine Creat Clearance w eGFR Random Glucose Calcium Phosphorus Magnesium Total Bilirubin AST ALT Alkaline Phosphatase Creatine Kinase Creatine Kinase Index CK-MB (CK-2) Troponin I Total Protein Albumin Random Vancomycin IMP: ARDS Acute Hypoxic Respiratory Failure Probable Aspiration Pneumonitis Incarcerated Inguinal Hernia s/p ex-lap/segmental terminal ileum resection/primary anastamosis 03/13 Septic Shock Acute Kidney Injury improving Lactic Acidosis Diverticulosis BPH (?) Acalculus Cholecystitis - Lung protective ventilation based on 6cc/kg ideal body weight (will try to change vent to a device that we can more readily monitor Plateau Pressure) - No further diuresis today - continue antibiotics per ID - Minimize IVF to avoid worsening capillary leak - Wean pressors as tolerated - monitor urine output, creatinine - keep Pplat <30 - taper FiO2, PEEP to keep SpO2 >90% - DVT/GI prophylaxis - May need to transfer to tertiary care for possible ECMO if oxygen requirements worsening - continue ICU monitoring Dr Moreno Critical care time spent in reviewing chart, evaluating patient and formulating plan 36 min
--- NOTE | 2018-03-20 12:15 | CON.CARD ---
Cardiology Consult (text) - Consultation Consultation Note: cc: abd pain , n/v hx from charts, pt intubated, sedated hpi: 82 m hx gerd, bph, here with abd pain. Found to have sbo, now s/p OR. Also with gallstone going for IR today. Has been having septic shock, intubated /pressors and now developed new afib so cardio eval requested. pmh: per hpi psh: per hpi social: no tob fam: unknown ros: unable to obtain 2/2 sedation meds: Home Medications Medication Instructions Recorded Finasteride 5 mg PO DAILY 03/12/18 Omeprazole 20 mg PO DAILY 03/12/18 Tamsulosin HCl 0.4 mg PO DAILY 03/12/18 pe: Vital Signs Temp 99.7 F H 03/20/18 10:04 Pulse 95 H 03/20/18 11:27 Resp 12 03/20/18 11:27 BP 125/71 03/20/18 11:27 Pulse Ox 96 03/20/18 11:27 Intake & Output 03/19/18 03/20/18 03/20/18 23:59 11:59 23:59 Intake Total 430 336 Output Total 3500 400 Balance -3070 -64 Weight 190 lb 14.4 oz Intake: IV 230 336 D5-Lr - 1,000 ml @ 50 mls 25 /hr IV ASDIR JUDY Rx#: [id number] DIPRIVAN - 1,000,000 mcg 95 133 In 100 ml @ 10 MCG/KG/MIN 4.736 mls/hr IV TITR JUDY Rx#:[id number] Levophed - 8,000 Mcg In 60 133 D5w - 492 ml @ 5 MCG/MIN 18.75 mls/hr IV TITR JUDY Rx#:[id number] fentanyl 50 70 IVPB 200 Output: Urine 3500 400 Scott 3500 400 Other: Voiding Method Indwelling Catheter Indwelling Catheter Bowel Movement No No Weight Measurement Method Built in [facility] nad no jvd sedated, intubated irreg, s1s2 no mrg cta bl anteriorly, vented 1+ le edema bl, no c/c pos dp pt no jaundice diaphoresis abd nd pos bs Laboratory Last Values WBC 25.6 K/mm3 (4.0-10.0) H D 03/20/18 05:55 RBC 4.69 M/mm3 (4.00-5.60) 03/20/18 05:55 Hgb 14.3 GM/dL (11.7-16.9) 03/20/18 05:55 Hct 43.0 % (35.4-49) 03/20/18 05:55 MCV 91.7 fl (80-96) 03/20/18 05:55 MCH 30.6 pg (25.7-33.7) 03/20/18 05:55 MCHC 33.3 g/dl (32.0-35.9) 03/20/18 05:55 RDW 13.9 % (11.9-15.9) 03/20/18 05:55 Plt Count 294 K/MM3 (134-434) D 03/20/18 05:55 MPV 8.9 fl (7.5-11.1) 03/20/18 05:55 Neutrophils % 79.6 % (42.8-82.8) 03/16/18 05:25 Neutrophils % (Manual) 88.0 % (42.8-82.8) H 03/20/18 05:55 Band Neutrophils % 0.0 % 03/20/18 05:55 Lymphocytes % 8.3 % (8-40) D 03/16/18 05:25 Lymphocytes % (Manual) 7.0 % (8-40) L 03/20/18 05:55 Monocytes % 9.1 % (3.8-10.2) D 03/16/18 05:25 Monocytes % (Manual) 0 % (3.8-10.2) L 03/20/18 05:55 Eosinophils % 2.8 % (0-4.5) D 03/16/18 05:25 Eosinophils % (Manual) 3.0 % (0-4.5) 03/20/18 05:55 Basophils % 0.2 % (0-2.0) 03/16/18 05:25 Basophils % (Manual) 0.0 % (0-2.0) 03/20/18 05:55 Myelocytes % (Man) 1 % (0-2) 03/20/18 05:55 Promyelocytes % (Man) 0 % (0-2) 03/20/18 05:55 Blast Cells % (Manual) 0 % (0-0) 03/20/18 05:55 Nucleated RBC % 0 % (0-0) 03/20/18 05:55 Metamyelocytes 0 % (0-2) 03/20/18 05:55 Platelet Estimate Normal 03/20/18 05:55 Acanthocytes (Spur) 1+ 03/20/18 05:55 PT with INR 15.70 SEC (9.7-13.0) H 03/20/18 05:55 INR 1.39 (0.82-1.09) H 03/20/18 05:55 PTT (Actin FS) 27.3 SECONDS (26.9-34.4) 03/12/18 21:01 Anticoagulation Therapy No Result Required. 03/20/18 06:15 Puncture Site Right radial 03/20/18 06:15 ABG pH 7.36 (7.35-7.45) 03/20/18 06:15 ABG pCO2 at Pt Temp 63.5 mmHg (35-45) H* 03/20/18 06:15 ABG pO2 at Pt Temp 118.0 mmHg (68-100) H D 03/20/18 06:15 ABG HCO3 34.9 meq/L (22-26) H 03/20/18 06:15 ABG O2 Sat (Measured) 98.4 % (90-98.9) 03/20/18 06:15 ABG O2 Content 20.2 % vol (15-22) 03/20/18 06:15 ABG Base Excess 7.4 meq/l (-2-2) H 03/20/18 06:15 Fernando Test Positive 03/20/18 06:15 Carboxyhemoglobin 1.8 gm% (0.5-2.0) 03/12/18 15:13 Methemoglobin 1.2 % (0.4-1.5) 03/12/18 15:13 O2 Delivery Device Vent 03/20/18 06:15 Oxygen Flow Rate 100 03/20/18 06:15 Vent Mode No Result Required. 03/20/18 06:15 Vent Rate 12 03/20/18 06:15 Mechanical Rate No Result Required. 03/20/18 06:15 PEEP 13.0 cmH2O 03/20/18 06:15 Pressure Support Vent 420 03/20/18 06:15 Sodium 141 mmol/L (136-145) 03/20/18 05:55 Potassium 3.8 mmol/L (3.5-5.1) 03/20/18 05:55 Chloride 99 mmol/L (98-107) 03/20/18 05:55 Carbon Dioxide 36 mmol/L (21-32) H 03/20/18 05:55 Anion Gap 6 (8-16) L 03/20/18 05:55 BUN 26 mg/dL (7-18) H 03/20/18 05:55 Creatinine 0.8 mg/dL (0.7-1.3) 03/20/18 05:55 Creat Clearance w eGFR > 60 (>60) 03/20/18 05:55 Random Glucose 128 mg/dL (74-106) H D 03/20/18 05:55 Lactic Acid 1.5 mmol/L (0.0-2.0) 03/15/18 05:55 Calcium 7.1 mg/dL (8.5-10.1) L 03/20/18 05:55 Phosphorus 2.4 mg/dL (2.5-4.9) L D 03/20/18 05:55 Magnesium 2.2 mg/dL (1.8-2.4) 03/20/18 05:55 Total Bilirubin 2.3 mg/dL (0.2-1.0) H D 03/20/18 05:55 Direct Bilirubin 0.5 mg/dL (0.0-0.2) H 03/13/18 19:30 AST 153 U/L (15-37) H 03/20/18 05:55 ALT 114 U/L (12-78) H 03/20/18 05:55 Alkaline Phosphatase 100 U/L (45-117) D 03/20/18 05:55 Creatine Kinase 327 IU/L (39-308) H 03/19/18 20:09 Creatine Kinase Index 2.0 % (0.0-5.0) 03/19/18 20:09 CK-MB (CK-2) 6.806 ng/mL (0.5-3.6) H 03/19/18 20:09 Troponin I 0.03 ng/ml (0.00-0.05) D 03/19/18 20:09 Total Protein 4.5 g/dl (6.4-8.2) L 03/20/18 05:55 Albumin 1.2 g/dl (3.4-5.0) L 03/20/18 05:55 Lipase 84 U/L (73-393) 03/12/18 14:45 Urine Color Dk yellow 03/16/18 06:00 Urine Appearance Slcloudy 03/16/18 06:00 Urine pH 5.0 (5.0-8.0) 03/16/18 06:00 Ur Specific [place] 1.056 (1.001-1.035) H 03/16/18 06:00 Urine Protein 2+ (NEGATIVE) H 03/16/18 06:00 Urine Glucose (UA) Negative (NEGATIVE) 03/16/18 06:00 Urine Ketones Negative (NEGATIVE) 03/16/18 06:00 Urine Blood Negative (NEGATIVE) 03/16/18 06:00 Urine Nitrite Negative (NEGATIVE) 03/16/18 06:00 Urine Bilirubin Negative (<2.0 mg/dL) 03/16/18 06:00 Urine Urobilinogen Negative mg/dL (0.2-1.0) 03/16/18 06:00 Ur Leukocyte Esterase Negative (NEGATIVE) 03/16/18 06:00 Urine WBC (Auto) 7 /hpf (3-5) 03/16/18 06:00 Urine RBC (Auto) 12 /hpf (0-3) 03/16/18 06:00 Ur Epithelial Cells Rare /HPF (FEW) 03/16/18 06:00 Hyaline Casts 9 /lpf 03/12/18 22:12 Urine Mucus Rare 03/16/18 06:00 Ur Random Sodium 6 MMOL/L 03/12/18 22:12 Urine Creatinine 221.0 mg/dL (20-370) 03/12/18 22:12 Random Vancomycin 7.608 ug/ml 03/20/18 05:55 Blood Type AB POSITIVE 03/12/18 23:51 Antibody Screen Negative 03/12/18 20:01 tele: pafib in 80s, occ sr ecg: sr, nl intervals, no ischemic changes echo 02/2018: nl lv/rv, mild mr/tr/ar cxr: chf, slightly improved est cct 35 mins a/p: 82 m hx gerd, bph, here with abd pain. septic shock: -remains intubated and on levo, titrate off as bp tolerates -cont abx per ID -has signs of vol overload, got lasix iv yesterday and cxr mildly improved today , would give another dose iv lasix later today after ir procedure pafib: -new onset here -rate controlled w/o meds -echo unremarkable -chadsvasc warrants ac. Would start hep gtt if no contraindications -cont tele sbo: -s/p surgery 03/13 -plans per surgery -also with gall stones and having IR drain today
[2018-03-20] MEDS: CHLORHEXIDINE GLUCONATE 0.12% 15ML CUP MM SCH ×2 (12:45→21:54)
[2018-03-20] MEDS: PANTOPRAZOLE SODIUM 40 MG VIAL IVPUSH SCH (13:39)
--- NOTE | 2018-03-20 14:06 | PN ---
Progress Note, Physician History of Present Illness: patient now on pressors though oxygen requirement less had a percut choleycystotomy tube placed still intubated and sedated - Current Medication List Current Medications: Active Medications Acetaminophen (Ofirmev Injection -) 1,000 mg IVPB Q6H PRN PRN Reason: FEVER Last Admin: 03/17/18 22:39 Dose: 1,000 mg Chlorhexidine Gluconate (Peridex -) 15 ml MM BID JUDY Last Admin: 03/20/18 12:45 Dose: 15 ml Chlorhexidine Gluconate (Hibiclens For Decolonization -) 1 applic TP HS JUDY Last Admin: 03/19/18 21:36 Dose: 1 applic Heparin Sodium (Porcine) (Heparin -) 5,000 unit SQ TID JUDY Last Admin: 03/19/18 14:15 Dose: 5,000 unit Propofol (Diprivan -) 1,000,000 mcg in 100 mls @ 4.736 mls/hr IV TITR JUDY; Protocol Last Admin: 03/20/18 13:39 Dose: 40 mcg/kg/min, 18.942 mls/hr Fentanyl 500 mcg/ Dextrose 100 mls @ 10 mls/hr IVPB TITR JUDY; Protocol Last Admin: 03/20/18 08:51 Dose: 10 mls/hr Piperacillin Sod/Tazobactam (Sod 4.5 gm/ Dextrose) 100 mls @ 200 mls/hr IVPB Q8H-IV JUDY; Protocol Last Admin: 03/20/18 10:11 Dose: 200 mls/hr Vancomycin HCl 1,250 mg/ (Dextrose) 250 mls @ 250 mls/2 hr IVPB Q24H JUDY; Protocol Last Admin: 03/19/18 16:28 Dose: 250 mls/2 hr Meropenem 1 gm/ Dextrose 100 mls @ 200 mls/hr IVPB Q8H-IV JUDY Last Admin: 03/20/18 09:38 Dose: 200 mls/hr Norepinephrine Bitartrate 8, (000 mcg/ Dextrose) 500 mls @ 18.75 mls/hr IV TITR JUDY; Protocol Last Admin: 03/20/18 08:43 Dose: 14 mcg/min, 52.5 mls/hr Ondansetron HCl (Zofran Injection) 4 mg IVPUSH Q6H PRN PRN Reason: NAUSEA Pantoprazole Sodium (Protonix Iv) 40 mg IVPUSH DAILY JUDY Last Admin: 03/20/18 13:39 Dose: 40 mg - Objective Vital Signs: Vital Signs Temperature 99.7 F H 03/20/18 10:04 Pulse Rate 95 H 03/20/18 11:27 Respiratory Rate 12 03/20/18 11:27 Blood Pressure 125/71 03/20/18 11:27 O2 Sat by Pulse Oximetry (%) 96 03/20/18 11:27 Constitutional: Yes: Other Cardiovascular: Yes: Pulse Irregular, Other (atrial flutter) Respiratory: Yes: Regular, CTA Bilaterally Gastrointestinal: Yes: Normal Bowel Sounds, Soft, Other (choley tube in place) Musculoskeletal: Yes: Other Extremities: Yes: Other Neurological: Yes: Other Psychiatric: Yes: Other Labs: CBC, BMP 03/20/18 05:55 03/20/18 05:55 INR, PTT INR 1.39 (0.82-1.09) H 03/20/18 05:55 - ....Imaging Chest X-ray: Report Reviewed, Image Reviewed Assessment/Plan Problem List - Problems (1) Strangulated inguinal hernia Pulmonary evaluation - weaning today? GI Evaluation - Tbili 3.5, 3.6 BP goal MAP 65-70, has a stapled small bowel anastomosis avoid lwo flow states will follow Code(s): K40.30 - UNIL INGUINAL HERNIA, W OBST, W/O GANGR, NOT SPCF RECUR (2) Incarcerated left inguinal hernia Code(s): K40.30 - UNIL INGUINAL HERNIA, W OBST, W/O GANGR, NOT SPCF RECUR (3) BPH (benign prostatic hyperplasia) Code(s): N40.0 - BENIGN PROSTATIC HYPERPLASIA WITHOUT LOWER URINRY TRACT SYMP Qualifiers: Lower urinary tract symptom presence: symptoms present Lower urinary tract symptom detail: urinary frequency Qualified Code(s): N40.1 - Benign prostatic hyperplasia with lower urinary tract symptoms; R35.0 - Frequency of micturition ; R35.0 - Frequency of micturition (4) DDD (degenerative disc disease), cervical Code(s): M50.30 - OTHER CERVICAL DISC DEGENERATION, UNSP CERVICAL REGION (5) SBO (small bowel obstruction) Code(s): K56.609 - UNSP INTESTNL OBST, UNSP TO PARTIAL VERSUS COMPLETE OBST (6) Aspiration pneumonia of both lower lobes due to gastric secretions Code(s): J69.0 - PNEUMONITIS DUE TO INHALATION OF FOOD AND VOMIT r/o acalculus choley plan continue abx monitor for fevers monitor vent setting rest as per icu patient improving await for cx reports from the bile suck secretions if any cc 40 min
[2018-03-20] MEDS ORDERED: FUROSEMIDE 40 MG/4 ML INJECTABLE VIAL IVPUSH ONE (14:45)
[2018-03-20] MEDS ORDERED: HEPARIN NA (PORCINE) 5,000 UNITS/ML 1ML VIAL IVPUSH ONE (15:22)
[2018-03-20 15:37] LABS: HEMATOCRIT 45.4 % (35.4-49); HEMOGLOBIN 14.6 GM/dL (11.7-16.9); MCH 29.7 pg (25.7-33.7); MCHC 32.2 g/dl (32.0-35.9); MEAN CELL VOLUME 92.2 fl (80-96); MEAN PLT VOLUME 8.8 fl (7.5-11.1); PLATELET COUNT 309 K/MM3 (134-434); RBC 4.93 M/mm3 (4.00-5.60); RDW 14.1 % (11.9-15.9); WHITE BLOOD COUNT 20.8 K/mm3 (4.0-10.0)
[2018-03-20] MEDS: HEPARIN NA (PORCINE) 5,000 UNITS/ML 1ML VIAL IVPUSH PRN (15:37)
[2018-03-20] MEDS: HEPARIN SOD,PORK IN 0.45% NACL 25,000 UNITS/500 ML INFUS.BAG IVPB SCH (15:39)
--- NOTE | 2018-03-20 16:13 | PN ---
Teaching Attending Note Name of Resident: Mukul White ATTENDING PHYSICIAN STATEMENT I saw and evaluated the patient. I reviewed the resident's note and discussed the case with the resident. I agree with the resident's findings and plan as documented. SUBJECTIVE: Patient sedated. Yesterday, he developed atrial fib/fluter with hypotension. He has been placed back on Levophed. Cholecystostomy tube has been placed by IR and is draining thick dark fluid. OBJECTIVE: Vital Signs Period Temp Pulse Resp BP Sys/Ceballos Pulse Ox Last 24 Hr 98.8 F-100.0 F 71-111 12-22 74-136/40-82 87-96 HEART: Irregular LUNGS: Bilateral rhonchi ABDOMEN: Soft, non-distended, normal BS EXTREMITIES: Trace edema Laboratory Results - last 24 hr 03/19/18 03/20/18 03/20/18 20:09 05:55 05:55 WBC 25.6 H D RBC 4.69 Hgb 14.3 Hct 43.0 MCV 91.7 MCH 30.6 MCHC 33.3 RDW 13.9 Plt Count 294 D MPV 8.9 Neutrophils % (Manual) 88.0 H Band Neutrophils % 0.0 Lymphocytes % (Manual) 7.0 L Monocytes % (Manual) 0 L Eosinophils % (Manual) 3.0 Basophils % (Manual) 0.0 Myelocytes % (Man) 1 Promyelocytes % (Man) 0 Blast Cells % (Manual) 0 Nucleated RBC % 0 Metamyelocytes 0 Platelet Estimate Normal Acanthocytes (Spur) 1+ PT with INR INR Anticoagulation Therapy Puncture Site ABG pH ABG pCO2 at Pt Temp ABG pO2 at Pt Temp ABG HCO3 ABG O2 Sat (Measured) ABG O2 Content ABG Base Excess Fernando Test O2 Delivery Device Oxygen Flow Rate Vent Mode Vent Rate Mechanical Rate PEEP Pressure Support Vent Sodium Potassium Chloride Carbon Dioxide Anion Gap BUN Creatinine Creat Clearance w eGFR Random Glucose Calcium Phosphorus Magnesium Total Bilirubin AST ALT Alkaline Phosphatase Creatine Kinase 327 H Creatine Kinase Index 2.0 CK-MB (CK-2) 6.806 H Troponin I 0.03 D Total Protein Albumin Random Vancomycin 7.608 03/20/18 03/20/18 03/20/18 05:55 05:55 06:15 WBC RBC Hgb Hct MCV MCH MCHC RDW Plt Count MPV Neutrophils % (Manual) Band Neutrophils % Lymphocytes % (Manual) Monocytes % (Manual) Eosinophils % (Manual) Basophils % (Manual) Myelocytes % (Man) Promyelocytes % (Man) Blast Cells % (Manual) Nucleated RBC % Metamyelocytes Platelet Estimate Acanthocytes (Spur) PT with INR 15.70 H INR 1.39 H Anticoagulation Therapy No Result Required. Puncture Site Right radial ABG pH 7.36 ABG pCO2 at Pt Temp 63.5 H* ABG pO2 at Pt Temp 118.0 H D ABG HCO3 34.9 H ABG O2 Sat (Measured) 98.4 ABG O2 Content 20.2 ABG Base Excess 7.4 H Fernando Test Positive O2 Delivery Device Vent Oxygen Flow Rate 100 Vent Mode No Result Required. Vent Rate 12 Mechanical Rate No Result Required. PEEP 13.0 Pressure Support Vent 420 Sodium 141 Potassium 3.8 Chloride 99 Carbon Dioxide 36 H Anion Gap 6 L BUN 26 H Creatinine 0.8 Creat Clearance w eGFR > 60 Random Glucose 128 H D Calcium 7.1 L Phosphorus 2.4 L D Magnesium 2.2 Total Bilirubin 2.3 H D AST 153 H ALT 114 H Alkaline Phosphatase 100 D Creatine Kinase Creatine Kinase Index CK-MB (CK-2) Troponin I Total Protein 4.5 L Albumin 1.2 L Random Vancomycin 03/20/18 15:00 WBC 20.8 H RBC 4.93 Hgb 14.6 Hct 45.4 MCV 92.2 MCH 29.7 MCHC 32.2 RDW 14.1 Plt Count 309 MPV 8.8 Neutrophils % (Manual) Band Neutrophils % Lymphocytes % (Manual) Monocytes % (Manual) Eosinophils % (Manual) Basophils % (Manual) Myelocytes % (Man) Promyelocytes % (Man) Blast Cells % (Manual) Nucleated RBC % Metamyelocytes Platelet Estimate Acanthocytes (Spur) PT with INR INR Anticoagulation Therapy Puncture Site ABG pH ABG pCO2 at Pt Temp ABG pO2 at Pt Temp ABG HCO3 ABG O2 Sat (Measured) ABG O2 Content ABG Base Excess Fernando Test O2 Delivery Device Oxygen Flow Rate Vent Mode Vent Rate Mechanical Rate PEEP Pressure Support Vent Sodium Potassium Chloride Carbon Dioxide Anion Gap BUN Creatinine Creat Clearance w eGFR Random Glucose Calcium Phosphorus Magnesium Total Bilirubin AST ALT Alkaline Phosphatase Creatine Kinase Creatine Kinase Index CK-MB (CK-2) Troponin I Total Protein Albumin Random Vancomycin Current Medications Generic Name Dose Route Start Last Admin Trade Name Freq PRN Reason Stop Dose Admin Acetaminophen 1,000 mg 03/17/18 18:49 03/17/18 22:39 Ofirmev Injection - IVPB 1,000 mg Q6H PRN Administration FEVER Chlorhexidine Gluconate 15 ml 03/13/18 10:00 03/20/18 12:45 Peridex - MM 15 ml BID JUDY Administration Chlorhexidine Gluconate 1 applic 03/13/18 22:00 03/19/18 21:36 Hibiclens For Decolonization - TP 1 applic HS JUDY Administration Heparin Sodium (Porcine) 1,000 unit 03/20/18 14:07 Heparin - IVPUSH PRN PRN Heparin Heparin Sodium (Porcine) 5,000 unit 03/20/18 14:07 Heparin - IVPUSH PRN PRN Heparin Propofol 1,000,000 mcg in 100 mls @ 4.736 mls/hr 03/13/18 04:00 03/20/18 13: 39 Diprivan - IV 40 mcg/kg/min TITR JUDY 18.942 mls/hr Administration Protocol 10 MCG/KG/MIN Fentanyl 500 mcg/ Dextrose 100 mls @ 10 mls/hr 03/13/18 05:15 03/20/18 08:51 IVPB 10 mls/hr TITR JUDY Administration Protocol 50 MCG/HR Piperacillin Sod/Tazobactam 100 mls @ 200 mls/hr 03/17/18 18:00 03/20/18 10: 11 Sod 4.5 gm/ Dextrose IVPB 200 mls/hr Q8H-IV JUDY Administration Protocol Vancomycin HCl 1,250 mg/ 250 mls @ 250 mls/2 hr 03/17/18 16:00 03/19/18 16:28 Dextrose IVPB 250 mls/2 hr Q24H JUDY Administration Protocol Meropenem 1 gm/ Dextrose 100 mls @ 200 mls/hr 03/19/18 18:00 03/20/18 09:38 IVPB 200 mls/hr Q8H-IV JUDY Administration Norepinephrine Bitartrate 8, 500 mls @ 18.75 mls/hr 03/19/18 21:30 03/20/18 08:43 000 mcg/ Dextrose IV 14 mcg/min TITR JUDY 52.5 mls/hr Administration Protocol 5 MCG/MIN HEPARIN SOD,PORK IN 0.45% NACL 25,000 units in 500 mls @ 20 mls/hr 03/20/18 14 :15 03/20/18 15:39 Heparin-1/2ns 25,000 Units/500 IVPB 1,000 units/hr TITR JUDY 20 mls/hr Administration Protocol 1,000 UNITS/HR Ondansetron HCl 4 mg 03/13/18 04:30 Zofran Injection IVPUSH Q6H PRN NAUSEA Pantoprazole Sodium 40 mg 03/13/18 10:00 03/20/18 13:39 Protonix Iv IVPUSH 40 mg DAILY JUDY Administration ASSESSMENT AND PLAN: This is an 82 year old man with a history of DDD, GERD, diverticulosis, BPH who presented to the ED with abdominal pain and vomiting. 1. Acute hypoxic respiratory failure secondary to sepsis, aspiration pneumonia, ARDS - Vent management as per pulmonary/critical care - Continue Zosyn, Merrem, Vancomycin - s/p Lasix and IV fluid has been discontinued 2. Septic shock - Levophed had to be restarted 3. Atrial fibrillation/flutter - Rate is ok - Heparin IV drip started - Echo shows normal LVEF, mild MR, normal RV systolic function 4. SBO with infarcted bowel - s/p exploratory laparotomy, segmental terminal ileum resection with primary anastomosis 03/13 5. Possible acalculous cholecystitis - s/p percutaneous drainage by IR today - Follow up culture 6. Acute kidney injury - Resolved 7. Hypoalbuminemia 8. Pseudohypocalcemia - Corrected calcium is 9.3 9. Hypophosphatemia - Continue to supplement phosphorus 10. Hepatic transaminitis - Total bili and AST increased with hypotension overnight 11. Stress ulcer prophylaxis - Continue Protonix 12. DVT prophylaxis - On heparin IV The care of this patient involved high complexity decision making to prevent further life threatening deterioration of the patient's condition and/or to evaluate & treat vital organ system(s) failure or risk of failure. Critical care time spent in reviewing chart, evaluating patient and formulating plan - 35 minutes.
[2018-03-20] MEDS ORDERED: FUROSEMIDE 40 MG/4 ML INJECTABLE VIAL ONE (17:31)
--- NOTE | 2018-03-20 17:52 | PN ---
Physical Exam: SUBJECTIVE: Overnight pt became tachycardic with atrial flutter rhythm and hypotensive. Levophed gtt was initiated and cardiology was consulted. Pt was givne Remains intubated and sedated and heparin has been held for possible perc. c- tube placement. OBJECTIVE: Vital Signs Period Temp Pulse Resp BP Sys/Ceballos Pulse Ox Last 24 Hr 98.8 F-100.0 F 71-111 12-22 74-136/40-82 87-96 GENERAL: NAD, intubated and sedated HEENT: Pupils decreased in size with reactivity, NG in place, moist mucous membranes, ETT noted Neck: R IJ line site C/D/I, JVD remains LUNGS: Diffuse Crackles with diminished breath sounds. AC mode: TV 450, PEEP 13 , FiO2 100%, RR 12 HEART: RRR, S1, S2 without murmur ABDOMEN: Soft, hypoactive BS, nondistended, midline incision C/D/I with closing panda, no masses palpated EXTREMITIES: 2+ DP pulses, cool, trace ankle and upper extremity edema noted SKIN: Warm, dry, no rashes noted Laboratory Results - last 24 hr 03/19/18 03/20/18 03/20/18 20:09 05:55 05:55 WBC 25.6 H D RBC 4.69 Hgb 14.3 Hct 43.0 MCV 91.7 MCH 30.6 MCHC 33.3 RDW 13.9 Plt Count 294 D MPV 8.9 Neutrophils % (Manual) 88.0 H Band Neutrophils % 0.0 Lymphocytes % (Manual) 7.0 L Monocytes % (Manual) 0 L Eosinophils % (Manual) 3.0 Basophils % (Manual) 0.0 Myelocytes % (Man) 1 Promyelocytes % (Man) 0 Blast Cells % (Manual) 0 Nucleated RBC % 0 Metamyelocytes 0 Platelet Estimate Normal Acanthocytes (Spur) 1+ PT with INR INR Anticoagulation Therapy Puncture Site ABG pH ABG pCO2 at Pt Temp ABG pO2 at Pt Temp ABG HCO3 ABG O2 Sat (Measured) ABG O2 Content ABG Base Excess Fernando Test O2 Delivery Device Oxygen Flow Rate Vent Mode Vent Rate Mechanical Rate PEEP Pressure Support Vent Sodium Potassium Chloride Carbon Dioxide Anion Gap BUN Creatinine Creat Clearance w eGFR Random Glucose Calcium Phosphorus Magnesium Total Bilirubin AST ALT Alkaline Phosphatase Creatine Kinase 327 H Creatine Kinase Index 2.0 CK-MB (CK-2) 6.806 H Troponin I 0.03 D Total Protein Albumin Random Vancomycin 7.608 03/20/18 03/20/18 03/20/18 05:55 05:55 06:15 WBC RBC Hgb Hct MCV MCH MCHC RDW Plt Count MPV Neutrophils % (Manual) Band Neutrophils % Lymphocytes % (Manual) Monocytes % (Manual) Eosinophils % (Manual) Basophils % (Manual) Myelocytes % (Man) Promyelocytes % (Man) Blast Cells % (Manual) Nucleated RBC % Metamyelocytes Platelet Estimate Acanthocytes (Spur) PT with INR 15.70 H INR 1.39 H Anticoagulation Therapy No Result Required. Puncture Site Right radial ABG pH 7.36 ABG pCO2 at Pt Temp 63.5 H* ABG pO2 at Pt Temp 118.0 H D ABG HCO3 34.9 H ABG O2 Sat (Measured) 98.4 ABG O2 Content 20.2 ABG Base Excess 7.4 H Fernando Test Positive O2 Delivery Device Vent Oxygen Flow Rate 100 Vent Mode No Result Required. Vent Rate 12 Mechanical Rate No Result Required. PEEP 13.0 Pressure Support Vent 420 Sodium 141 Potassium 3.8 Chloride 99 Carbon Dioxide 36 H Anion Gap 6 L BUN 26 H Creatinine 0.8 Creat Clearance w eGFR > 60 Random Glucose 128 H D Calcium 7.1 L Phosphorus 2.4 L D Magnesium 2.2 Total Bilirubin 2.3 H D AST 153 H ALT 114 H Alkaline Phosphatase 100 D Creatine Kinase Creatine Kinase Index CK-MB (CK-2) Troponin I Total Protein 4.5 L Albumin 1.2 L Random Vancomycin 03/20/18 15:00 WBC 20.8 H RBC 4.93 Hgb 14.6 Hct 45.4 MCV 92.2 MCH 29.7 MCHC 32.2 RDW 14.1 Plt Count 309 MPV 8.8 Neutrophils % (Manual) Band Neutrophils % Lymphocytes % (Manual) Monocytes % (Manual) Eosinophils % (Manual) Basophils % (Manual) Myelocytes % (Man) Promyelocytes % (Man) Blast Cells % (Manual) Nucleated RBC % Metamyelocytes Platelet Estimate Acanthocytes (Spur) PT with INR INR Anticoagulation Therapy Puncture Site ABG pH ABG pCO2 at Pt Temp ABG pO2 at Pt Temp ABG HCO3 ABG O2 Sat (Measured) ABG O2 Content ABG Base Excess Fernando Test O2 Delivery Device Oxygen Flow Rate Vent Mode Vent Rate Mechanical Rate PEEP Pressure Support Vent Sodium Potassium Chloride Carbon Dioxide Anion Gap BUN Creatinine Creat Clearance w eGFR Random Glucose Calcium Phosphorus Magnesium Total Bilirubin AST ALT Alkaline Phosphatase Creatine Kinase Creatine Kinase Index CK-MB (CK-2) Troponin I Total Protein Albumin Random Vancomycin Active Medications Generic Name Dose Route Start Last Admin Trade Name Freq PRN Reason Stop Dose Admin Acetaminophen 1,000 mg 03/17/18 18:49 03/17/18 22:39 Ofirmev Injection - IVPB 1,000 mg Q6H PRN Administration FEVER Chlorhexidine Gluconate 15 ml 03/13/18 10:00 03/20/18 12:45 Peridex - MM 15 ml BID JUDY Administration Chlorhexidine Gluconate 1 applic 03/13/18 22:00 03/19/18 21:36 Hibiclens For Decolonization - TP 1 applic HS JUDY Administration Heparin Sodium (Porcine) 1,000 unit 03/20/18 14:07 Heparin - IVPUSH PRN PRN Heparin Heparin Sodium (Porcine) 5,000 unit 03/20/18 14:07 Heparin - IVPUSH PRN PRN Heparin Propofol 1,000,000 mcg in 100 mls @ 4.736 mls/hr 03/13/18 04:00 03/20/18 17: 41 Diprivan - IV 0 mcg/kg/min TITR JUDY 0 mls/hr Titration Protocol 10 MCG/KG/MIN Fentanyl 500 mcg/ Dextrose 100 mls @ 10 mls/hr 03/13/18 05:15 03/20/18 17:43 IVPB 10 mls/hr TITR JUDY Administration Protocol 50 MCG/HR Piperacillin Sod/Tazobactam 100 mls @ 200 mls/hr 03/17/18 18:00 03/20/18 17: 38 Sod 4.5 gm/ Dextrose IVPB 200 mls/hr Q8H-IV JUDY Administration Protocol Vancomycin HCl 1,250 mg/ 250 mls @ 250 mls/2 hr 03/17/18 16:00 03/19/18 16:28 Dextrose IVPB 250 mls/2 hr Q24H JUDY Administration Protocol Meropenem 1 gm/ Dextrose 100 mls @ 200 mls/hr 03/19/18 18:00 03/20/18 09:38 IVPB 200 mls/hr Q8H-IV JUDY Administration Norepinephrine Bitartrate 8, 500 mls @ 18.75 mls/hr 03/19/18 21:30 03/20/18 08:43 000 mcg/ Dextrose IV 14 mcg/min TITR JUDY 52.5 mls/hr Administration Protocol 5 MCG/MIN HEPARIN SOD,PORK IN 0.45% NACL 25,000 units in 500 mls @ 20 mls/hr 03/20/18 14 :15 03/20/18 15:39 Heparin-1/2ns 25,000 Units/500 IVPB 1,000 units/hr TITR JUDY 20 mls/hr Administration Protocol 1,000 UNITS/HR Ondansetron HCl 4 mg 03/13/18 04:30 Zofran Injection IVPUSH Q6H PRN NAUSEA Pantoprazole Sodium 40 mg 03/13/18 10:00 03/20/18 13:39 Protonix Iv IVPUSH 40 mg DAILY JUDY Administration ASSESSMENT/PLAN: 1) Acute hypoxic respiratory failure --ARDS --CXR showing bilateral patchy infiltrates w/o effusions --Low TV protocol in place; TV 420, PEEP 13 --Maintain SpO2 >90% --Currently titrated down to 80% --CVP goal now ~4 2) Septic shock 2/2 to bowel ischemia in addition to PNA --Levophed on board; 14mcg/min --titrate for MAP >65 --Suspected aspiration PNA as evident from sore throat upon admission --Continue Zosyn 4.5gm q8h (Day 9) --ID on board --Continue Vancomycin 1.25gm qdaily (day 4) --Meropenem added last night for additional coverage; continue (day 2) --cultures showing serratia, group D strep 3) Elevated LFTs --Increased LFTs today --Perc cholecystostomy performed by IR --Drain with draining black viscous fluid --Monitor outputs --IR okay with hep gtt or AC after procedure for a-flutter 4) Atrial flutter --Cardiology consulted --Heparin gtt initiated post-procedure --Continue to monitor --Currently controlled off of medications --Echo unremarkable 5) Volume overloaded --Lasix 20mg IVP after IR procedure today 6) ANATOLIY --Prerenal in etiology --FENa 0.0% --RESOLVED (BUN/Cr 18/0.9) FEN: Fluids: None Electrolyte abnormalities: Hypophosphatemia; (KPhos repleted) Nutrition: Hold feeds PPX: DVT - Heparin gtt on already GI - Protonix 40mg IVP daily Dispo: Continue ICU monitoring Case discussed with Dr. Madsen and ICU team Mukul White, DO - IM PGY-1 Visit type - Emergency Visit Emergency Visit: No - New Patient This patient is new to me today: No - Critical Care Critical Care patient: Yes Total Critical Care Time (in minutes): 39 Critical Care Statement: The care of this patient involved high complexity decision making to prevent further life threatening deterioration of the patient 's condition and/or to evaluate & treat vital organ system(s) failure or risk of failure.
[2018-03-20] MEDS: VANCOMYCIN 1,250 MG in DEXTROSE 5%-WATER - 250 ML IVPB SCH (18:07)
[2018-03-20] MEDS: CHLORHEXIDINE GLUCONATE 4% CLEANSER FOR DECOLONIZATION TP SCH (21:54)
[2018-03-21] MEDS ORDERED: PT OWN MED DRAWER 7, Y5N ONE ×3 (00:39→17:04)
[2018-03-21] MEDS ORDERED: DEXTROSE 5%-WATER 100 ML IVPB ONE ×2 (00:40→17:05)
[2018-03-21] MEDS ORDERED: PIPERACILLIN/TAZOBACTAM 4.5 GM VIAL IVPB ONE ×2 (00:40→17:05)
[2018-03-21] MEDS: PIPERACILLIN/TAZOB 4.5 GM 4.5 GM in DEXTROSE 5%-WATER 100 ML IVPB SCH ×3 (01:01→17:25)
[2018-03-21] MEDS: MEROPENEM 1 GM in DEXTROSE 5%-WATER 100 ML IVPB SCH ×3 (02:02→17:25)
[2018-03-21] MEDS: ACETAMINOPHEN 1000 MG/100 ML VIAL (NON FORMULARY) IVPB PRN (02:26)
[2018-03-21] MEDS ORDERED: fentaNYL CITRATE 250 MCG/5 ML VIAL ONE (05:48)
[2018-03-21 06:34] LABS: ARTERIAL BLD GAS O2 SATURATION 99.1 % (90-98.9); ARTERIAL BLOOD GAS BASE EXCESS 10.4 meq/l (-2-2); ARTERIAL BLOOD GAS PCO2 50.8 mmHg (35-45)
[2018-03-21 06:35] LABS: ALLENS TEST POSITIVE
[2018-03-21 06:36] LABS: ARTERIAL BLOOD GAS pH 7.46 (7.35-7.45)
[2018-03-21] MEDS: FENTANYL INJECTION 500 MCG in DEXTROSE 5%-WATER - 90 ML IVPB SCH (06:52)
[2018-03-21] MEDS: PROPOFOL 1,000,000 MCG/100 ML VIAL IV SCH (06:52)
[2018-03-21 07:18] LABS: CHLORIDE 97 mmol/L (98-107); POTASSIUM 3.6 mmol/L (3.5-5.1); SODIUM 142 mmol/L (136-145)
[2018-03-21 07:24] LABS: ALK PHOS 91 U/L (45-117); ANION GAP 6 (8-16); BILIRUBIN,TOTAL 2.4 mg/dL (0.2-1.0); BLOOD UREA NITROGEN 23 mg/dL (7-18); CO2 39 mmol/L (21-32); CREATININE 0.7 mg/dL (0.7-1.3); GLUCOSE,RANDOM 136 mg/dL (74-106); MAGNESIUM 2.2 mg/dL (1.8-2.4); PHOSPHOROUS 1.4 mg/dL (2.5-4.9); SGOT/AST 155 U/L (15-37); SGPT/ALT 101 U/L (12-78); TOT PROT 4.1 g/dl (6.4-8.2)
--- NOTE | 2018-03-21 07:47 | PN ---
Progress Note (short form) - Note Progress Note: intubated/sedated levo titrated down to 6mcg Current Medications Generic Name Dose Route Start Last Admin Trade Name Freq PRN Reason Stop Dose Admin Acetaminophen 1,000 mg 03/17/18 18:49 03/21/18 02:26 Ofirmev Injection - IVPB 1,000 mg Q6H PRN Administration FEVER Chlorhexidine Gluconate 15 ml 03/13/18 10:00 03/20/18 21:54 Peridex - MM 15 ml BID JUDY Administration Chlorhexidine Gluconate 1 applic 03/13/18 22:00 03/20/18 21:54 Hibiclens For Decolonization - TP 1 applic HS JUDY Administration Heparin Sodium (Porcine) 1,000 unit 03/20/18 14:07 Heparin - IVPUSH PRN PRN Heparin Heparin Sodium (Porcine) 5,000 unit 03/20/18 14:07 Heparin - IVPUSH PRN PRN Heparin Propofol 1,000,000 mcg in 100 mls @ 4.736 mls/hr 03/13/18 04:00 03/21/18 06: 52 Diprivan - IV 35 mcg/kg/min TITR JUDY 16.574 mls/hr Administration Protocol 10 MCG/KG/MIN Fentanyl 500 mcg/ Dextrose 100 mls @ 10 mls/hr 03/13/18 05:15 03/21/18 06:52 IVPB 10 mls/hr TITR JUDY Administration Protocol 50 MCG/HR Piperacillin Sod/Tazobactam 100 mls @ 200 mls/hr 03/17/18 18:00 03/21/18 01: 01 Sod 4.5 gm/ Dextrose IVPB 200 mls/hr Q8H-IV JUDY Administration Protocol Vancomycin HCl 1,250 mg/ 250 mls @ 250 mls/2 hr 03/17/18 16:00 03/20/18 18:07 Dextrose IVPB 250 mls/2 hr Q24H JUDY Administration Protocol Meropenem 1 gm/ Dextrose 100 mls @ 200 mls/hr 03/19/18 18:00 03/21/18 02:02 IVPB 200 mls/hr Q8H-IV JUDY Administration Norepinephrine Bitartrate 8, 500 mls @ 18.75 mls/hr 03/19/18 21:30 03/21/18 00:37 000 mcg/ Dextrose IV 8 mcg/min TITR JUDY 30 mls/hr Titration Protocol 5 MCG/MIN HEPARIN SOD,PORK IN 0.45% NACL 25,000 units in 500 mls @ 20 mls/hr 03/20/18 14 :15 03/20/18 15:39 Heparin-1/2ns 25,000 Units/500 IVPB 1,000 units/hr TITR JUDY 20 mls/hr Administration Protocol 1,000 UNITS/HR Ondansetron HCl 4 mg 03/13/18 04:30 Zofran Injection IVPUSH Q6H PRN NAUSEA Pantoprazole Sodium 40 mg 03/13/18 10:00 03/20/18 13:39 Protonix Iv IVPUSH 40 mg DAILY JUDY Administration Last Vital Signs Temp Pulse Resp BP Pulse Ox 100.0 F H 68 18 102/48 98 03/21/18 06:00 03/21/18 06:00 03/21/18 07:01 03/21/18 06:00 03/20/18 21:46 Intake & Output 03/18/18 03/19/18 03/20/18 03/21/18 23:59 23:59 23:59 23:59 Intake Total 2875.4 1172.8 336 323 Output Total 900 3800 1440 750 Balance 1975.4 -2627.2 -1104 -427 Weight 190 lb 3.2 oz 195 lb 3.2 oz 190 lb 14.4 oz 191 lb 1.6 oz General resting comfortable CV S1 S2 irregular lungs coarse breath sounds diffusely Abdomen soft NT/ND. midline incision with panda. good approximation. no drainage. +RUQ LEIF drain with black fluid. no BS appreciated Extremities no pedal edema neuro PERRL, no gag reflex CBCD WBC 20.8 K/mm3 (4.0-10.0) H 03/20/18 15:00 RBC 4.93 M/mm3 (4.00-5.60) 03/20/18 15:00 Hgb 14.6 GM/dL (11.7-16.9) 03/20/18 15:00 Hct 45.4 % (35.4-49) 03/20/18 15:00 MCV 92.2 fl (80-96) 03/20/18 15:00 MCHC 32.2 g/dl (32.0-35.9) 03/20/18 15:00 RDW 14.1 % (11.9-15.9) 03/20/18 15:00 Plt Count 309 K/MM3 (134-434) 03/20/18 15:00 MPV 8.8 fl (7.5-11.1) 03/20/18 15:00 CMP Sodium 141 mmol/L (136-145) 03/20/18 05:55 Potassium 3.8 mmol/L (3.5-5.1) 03/20/18 05:55 Chloride 99 mmol/L (98-107) 03/20/18 05:55 Carbon Dioxide 36 mmol/L (21-32) H 03/20/18 05:55 Anion Gap 6 (8-16) L 03/20/18 05:55 BUN 26 mg/dL (7-18) H 03/20/18 05:55 Creatinine 0.8 mg/dL (0.7-1.3) 03/20/18 05:55 Creat Clearance w eGFR > 60 (>60) 03/20/18 05:55 Calcium 7.1 mg/dL (8.5-10.1) L 03/20/18 05:55 Total Bilirubin 2.3 mg/dL (0.2-1.0) H D 03/20/18 05:55 AST 153 U/L (15-37) H 03/20/18 05:55 ALT 114 U/L (12-78) H 03/20/18 05:55 Alkaline Phosphatase 100 U/L (45-117) D 03/20/18 05:55 Total Protein 4.5 g/dl (6.4-8.2) L 03/20/18 05:55 Albumin 1.2 g/dl (3.4-5.0) L 03/20/18 05:55 Microbiology 03/20/18 11:15 LAN Preparation - Preliminary Peritoneal Fluid Fungal Culture - Preliminary 03/15/18 11:40 Blood Culture - Final Blood - Central Line NO GROWTH AFTER 5 DAYS INCUBATION 03/15/18 11:30 Blood Culture - Final Blood - Central Line NO GROWTH AFTER 5 DAYS INCUBATION 03/15/18 11:14 Blood Culture - Final Blood - Peripheral Venous NO GROWTH AFTER 5 DAYS INCUBATION 03/15/18 11:14 Blood Culture - Final Blood - Peripheral Venous NO GROWTH AFTER 5 DAYS INCUBATION Microbiology 03/20/18 11:15 Peritoneal Fluid LAN Preparation - Preliminary 03/20/18 11:15 Peritoneal Fluid Fungal Culture - Preliminary 03/15/18 11:40 Blood - Central Line Blood Culture - Final NO GROWTH AFTER 5 DAYS INCUBATION 03/15/18 11:30 Blood - Central Line Blood Culture - Final NO GROWTH AFTER 5 DAYS INCUBATION 03/15/18 11:14 Blood - Peripheral Venous Blood Culture - Final NO GROWTH AFTER 5 DAYS INCUBATION 03/15/18 11:14 Blood - Peripheral Venous Blood Culture - Final NO GROWTH AFTER 5 DAYS INCUBATION 03/15/18 11:00 Sputum - Endotrachea Suction/Ventilator Gram Stain - Final 03/15/18 11:00 Sputum - Endotrachea Suction/Ventilator Sputum Culture - Final Klebsiella Oxytoca Serratia Marcescens Enterococcus Faecalis 03/16/18 16:00 Urine - Urine Scott Urine Culture - Final NO GROWTH OBTAINED 03/12/18 14:51 Blood - Peripheral Venous Blood Culture - Final NO GROWTH AFTER 5 DAYS INCUBATION 03/12/18 14:51 Blood - Peripheral Venous Blood Culture - Final NO GROWTH AFTER 5 DAYS INCUBATION 03/13/18 02:25 Peritoneal Fluid Gram Stain - Final 03/13/18 02:25 Peritoneal Fluid Body Fluid Culture - Final NO GROWTH OF AEROBIC ORGANISMS AFTER 48 HOURS INCUBATION 03/13/18 02:25 Peritoneal Fluid Anaerobic Culture - Final NO ANAEROBES WERE ISOLATED 03/12/18 22:12 Urine For Antigen Detection Legionella Antigen - Final 03/12/18 22:12 Urine For Antigen Detection Streptococcus pneumoniae Antigen (M - Final Assessment and Plan: 82 year old man with a history of DDD, GERD, diverticulosis, BPH who presented to the ED with abdominal pain and vomiting. 1. Acute hypoxic respiratory failure secondary to sepsis, aspiration pneumonia, ARDS - still on full vent support. further vent management per ICU team. daily sedation vacations. 2 point restraints and sedation. 2. Septic shock due to aspiration PNA- intermittent low grade fevers. lactic acidosis resolved. levo titrated down to 6mcg. on Meropenem/vanco/Zosyn. s/p cholostomy tube placed yesterday draining bile. f/u peritoneal fluid pending. no vegetations seen on echo 3. Atrial fibrillation/flutter- remains in aflutter presently. rate controlled. on heparin ggt. echo reviewed. cardio on board 4. SBO with infarcted bowel- s/p exploratory laparotomy, segmental terminal ileum resection with primary anastomosis 03/13. tolerated Tube feeds. 5. Possible acalculous cholecystitis- s/p percutaneous drainage by IR 03/20. draining bile. does not appear infected. monitor output 50cc 6. Acute kidney injury - Resolved 7. Hypoalbuminemia 8. Pseudohypocalcemia- Corrected calcium is 9.3 9. Hypophosphatemia-labs pending 10. Hepatic transaminitis- total bili increased due to hypotension. awaiting labs for today 11. Stress ulcer prophylaxis- Continue Protonix 12. DVT prophylaxis- On heparin ggt The care of this patient involved high complexity decision making to prevent further life threatening deterioration of the patient's condition and/or to evaluate & treat vital organ system(s) failure or risk of failure. Critical care time spent in reviewing chart, evaluating patient and formulating plan - 38 minutes. Visit type - Emergency Visit Emergency Visit: Yes ED Registration Date: 03/12/18 Care time: The patient presented to the Emergency Department on the above date and was hospitalized for further evaluation of their emergent condition. - New Patient This patient is new to me today: Yes Date on this admission: 03/21/18 - Critical Care Critical Care patient: Yes Total Critical Care Time (in minutes): 38 Critical Care Statement: The care of this patient involved high complexity decision making to prevent further life threatening deterioration of the patient 's condition and/or to evaluate & treat vital organ system(s) failure or risk of failure. - Discharge Referral Referred to [facility] No
--- NOTE | 2018-03-21 08:07 | PN ---
Progress Note (short form) - Note Progress Note: Pulm/CCM Seen and examined in ICU SUBJECTIVE: -no acute events overnight -remains on low dose levophed -Vent requirements slightly downtrending -low grade temp on broad spectrum CXR: R > L diffuse infiltrates c/f ards, small effusions Vital Signs Temp 100.0 F H 03/21/18 06:00 Pulse 68 03/21/18 07:27 Resp 18 03/21/18 07:27 BP 102/48 03/21/18 06:00 Pulse Ox 98 03/21/18 07:27 Intake & Output 03/20/18 03/20/18 03/21/18 11:59 23:59 11:59 Intake Total 336 323 Output Total 400 1040 750 Balance -64 -1040 -427 Weight 86.591 kg 86.682 kg Intake: IV 336 323 DIPRIVAN - 1,000,000 mcg 133 133 In 100 ml @ 10 MCG/KG/MIN 4.736 mls/hr IV TITR JUDY Rx#:[id number] Levophed - 8,000 Mcg In 133 120 D5w - 492 ml @ 5 MCG/MIN 18.75 mls/hr IV TITR JUDY Rx#:[id number] fentanyl 70 70 Output: Drainage 40 50 Right Upper Abdomen 40 50 Urine 400 1000 700 Scott 400 1000 700 Other: Voiding Method Indwelling Catheter Indwelling Catheter Indwelling Catheter Bowel Movement No No Weight Measurement Method Built in Bedscale [facility] Active Medications Acetaminophen (Ofirmev Injection -) 1,000 mg IVPB Q6H PRN PRN Reason: FEVER Last Admin: 03/21/18 02:26 Dose: 1,000 mg Chlorhexidine Gluconate (Peridex -) 15 ml MM BID JUDY Last Admin: 03/20/18 21:54 Dose: 15 ml Chlorhexidine Gluconate (Hibiclens For Decolonization -) 1 applic TP HS JUDY Last Admin: 03/20/18 21:54 Dose: 1 applic Heparin Sodium (Porcine) (Heparin -) 1,000 unit IVPUSH PRN PRN PRN Reason: Heparin Heparin Sodium (Porcine) (Heparin -) 5,000 unit IVPUSH PRN PRN PRN Reason: Heparin Propofol (Diprivan -) 1,000,000 mcg in 100 mls @ 4.736 mls/hr IV TITR JUDY; Protocol Last Admin: 03/21/18 06:52 Dose: 35 mcg/kg/min, 16.574 mls/hr Fentanyl 500 mcg/ Dextrose 100 mls @ 10 mls/hr IVPB TITR JUDY; Protocol Last Admin: 03/21/18 06:52 Dose: 10 mls/hr Piperacillin Sod/Tazobactam (Sod 4.5 gm/ Dextrose) 100 mls @ 200 mls/hr IVPB Q8H-IV JUDY; Protocol Last Admin: 03/21/18 01:01 Dose: 200 mls/hr Vancomycin HCl 1,250 mg/ (Dextrose) 250 mls @ 250 mls/2 hr IVPB Q24H JUDY; Protocol Last Admin: 03/20/18 18:07 Dose: 250 mls/2 hr Meropenem 1 gm/ Dextrose 100 mls @ 200 mls/hr IVPB Q8H-IV JUDY Last Admin: 03/21/18 02:02 Dose: 200 mls/hr Norepinephrine Bitartrate 8, (000 mcg/ Dextrose) 500 mls @ 18.75 mls/hr IV TITR JUDY; Protocol Last Titration: 03/21/18 00:37 Dose: 8 mcg/min, 30 mls/hr HEPARIN SOD,PORK IN 0.45% NACL (Heparin-1/2ns 25,000 Units/500) 25,000 units in 500 mls @ 20 mls/hr IVPB TITR JUDY; Protocol Last Admin: 03/20/18 15:39 Dose: 1,000 units/hr, 20 mls/hr Ondansetron HCl (Zofran Injection) 4 mg IVPUSH Q6H PRN PRN Reason: NAUSEA Pantoprazole Sodium (Protonix Iv) 40 mg IVPUSH DAILY JUDY Last Admin: 03/20/18 13:39 Dose: 40 mg Gen: intubated, sedated Heart: RRR Lung: scattered rhonchi, thin secretions Abd: soft, dressings intact, (+) BS , tolerating feeds Ext: 2+, dependent edema CBCD WBC 20.8 K/mm3 (4.0-10.0) H 03/20/18 15:00 RBC 4.93 M/mm3 (4.00-5.60) 03/20/18 15:00 Hgb 14.6 GM/dL (11.7-16.9) 03/20/18 15:00 Hct 45.4 % (35.4-49) 03/20/18 15:00 MCV 92.2 fl (80-96) 03/20/18 15:00 MCHC 32.2 g/dl (32.0-35.9) 03/20/18 15:00 RDW 14.1 % (11.9-15.9) 03/20/18 15:00 Plt Count 309 K/MM3 (134-434) 03/20/18 15:00 MPV 8.8 fl (7.5-11.1) 03/20/18 15:00 CMP Sodium 141 mmol/L (136-145) 03/20/18 05:55 Potassium 3.8 mmol/L (3.5-5.1) 03/20/18 05:55 Chloride 99 mmol/L (98-107) 03/20/18 05:55 Carbon Dioxide 36 mmol/L (21-32) H 03/20/18 05:55 Anion Gap 6 (8-16) L 03/20/18 05:55 BUN 26 mg/dL (7-18) H 03/20/18 05:55 Creatinine 0.8 mg/dL (0.7-1.3) 03/20/18 05:55 Creat Clearance w eGFR > 60 (>60) 03/20/18 05:55 Random Glucose 128 mg/dL (74-106) H D 03/20/18 05:55 Calcium 7.1 mg/dL (8.5-10.1) L 03/20/18 05:55 Total Bilirubin 2.3 mg/dL (0.2-1.0) H D 03/20/18 05:55 AST 153 U/L (15-37) H 03/20/18 05:55 ALT 114 U/L (12-78) H 03/20/18 05:55 Alkaline Phosphatase 100 U/L (45-117) D 03/20/18 05:55 Total Protein 4.5 g/dl (6.4-8.2) L 03/20/18 05:55 Albumin 1.2 g/dl (3.4-5.0) L 03/20/18 05:55 CARDIAC ENZYMES Creatine Kinase 327 IU/L (39-308) H 03/19/18 20:09 Troponin I 0.03 ng/ml (0.00-0.05) D 03/19/18 20:09 IMP: ARDS Acute Hypoxic Respiratory Failure Probable Aspiration Pneumonitis Incarcerated Inguinal Hernia s/p ex-lap/segmental terminal ileum resection/primary anastamosis 03/13 Septic Shock Acute Kidney Injury improving Lactic Acidosis Diverticulosis BPH (?) Acalculus Cholecystitis - Lung protective ventilation based on 6cc/kg ideal body weight, can try Pressure Control - diuresis as able - continue antibiotics per ID - Minimize IVF to avoid worsening capillary leak - Wean pressors as tolerated - monitor urine output, creatinine - keep Pplat <30 - hep gtt for low therapeutic - taper FiO2, PEEP to keep SpO2 >90% - DVT/GI prophylaxis - continue ICU monitoring Zia Mota ACNP [id number]
--- NOTE | 2018-03-21 08:54 | EKG ---
Test Reason : Blood Pressure : / mmHG Vent. Rate : 080 BPM Atrial Rate : 214 BPM P-R Int : 000 ms QRS Dur : 072 ms QT Int : 358 ms P-R-T Axes : 000 011 025 degrees QTc Int : 412 ms POOR DATA QUALITY, INTERPRETATION MAY BE ADVERSELY AFFECTED ATRIAL FIBRILLATION ABNORMAL ECG WHEN COMPARED WITH ECG OF 12-MAR-2018 15:49, ATRIAL FIBRILLATION HAS REPLACED SINUS RHYTHM Confirmed by JERAMY PEREZ, RM ([id number]) on 03/21/2018 8:54:05 AM Referred By: Confirmed By:RM DESHPANDE MD
[2018-03-21 09:05] LABS: CALCIUM 6.8 mg/dL (8.5-10.1)
[2018-03-21] MEDS: CHLORHEXIDINE GLUCONATE 0.12% 15ML CUP MM SCH ×2 (09:37→21:51)
[2018-03-21] MEDS: PANTOPRAZOLE SODIUM 40 MG VIAL IVPUSH SCH (09:37)
[2018-03-21] MEDS: NOREPINEPHRINE BITARTRATE 8,000 MCG in DEXTROSE 5%-WATER - 492 ML IV SCH ×2 (09:41→21:51)
--- NOTE | 2018-03-21 11:39 | PN ---
Progress Note, Physician Chief Complaint: SBO History of Present Illness: 82 yo male PMH BPH, degernerative disc disease (cervical), diverticulosis, hemorrhoids presented to the ED with abdominal pain and vomiting for on day. He reports that he was weight training yesterday and developed some groin pain. He remains sedated and intubated in the ICU post op give poor saturation preop. He on low dose vasopressor support overnight. - Current Medication List Current Medications: Active Medications Acetaminophen (Ofirmev Injection -) 1,000 mg IVPB Q6H PRN PRN Reason: FEVER Last Admin: 03/21/18 02:26 Dose: 1,000 mg Chlorhexidine Gluconate (Peridex -) 15 ml MM BID JUDY Last Admin: 03/21/18 09:37 Dose: 15 ml Chlorhexidine Gluconate (Hibiclens For Decolonization -) 1 applic TP HS JUDY Last Admin: 03/20/18 21:54 Dose: 1 applic Heparin Sodium (Porcine) (Heparin -) 1,000 unit IVPUSH PRN PRN PRN Reason: Heparin Heparin Sodium (Porcine) (Heparin -) 5,000 unit IVPUSH PRN PRN PRN Reason: Heparin Propofol (Diprivan -) 1,000,000 mcg in 100 mls @ 4.736 mls/hr IV TITR JUDY; Protocol Last Admin: 03/21/18 06:52 Dose: 35 mcg/kg/min, 16.574 mls/hr Fentanyl 500 mcg/ Dextrose 100 mls @ 10 mls/hr IVPB TITR JUDY; Protocol Last Admin: 03/21/18 06:52 Dose: 10 mls/hr Piperacillin Sod/Tazobactam (Sod 4.5 gm/ Dextrose) 100 mls @ 200 mls/hr IVPB Q8H-IV JUDY; Protocol Last Admin: 03/21/18 09:40 Dose: 200 mls/hr Vancomycin HCl 1,250 mg/ (Dextrose) 250 mls @ 250 mls/2 hr IVPB Q24H JUDY; Protocol Last Admin: 03/20/18 18:07 Dose: 250 mls/2 hr Meropenem 1 gm/ Dextrose 100 mls @ 200 mls/hr IVPB Q8H-IV JUDY Last Admin: 03/21/18 09:36 Dose: 200 mls/hr Norepinephrine Bitartrate 8, (000 mcg/ Dextrose) 500 mls @ 18.75 mls/hr IV TITR JUDY; Protocol Last Admin: 03/21/18 09:41 Dose: 6 mcg/min, 22.5 mls/hr HEPARIN SOD,PORK IN 0.45% NACL (Heparin-1/2ns 25,000 Units/500) 25,000 units in 500 mls @ 20 mls/hr IVPB TITR JUDY; Protocol Last Admin: 03/20/18 15:39 Dose: 1,000 units/hr, 20 mls/hr Ondansetron HCl (Zofran Injection) 4 mg IVPUSH Q6H PRN PRN Reason: NAUSEA Pantoprazole Sodium (Protonix Iv) 40 mg IVPUSH DAILY JUDY Last Admin: 03/21/18 09:37 Dose: 40 mg - Objective Vital Signs: Vital Signs Temperature 100.2 F H 03/21/18 10:00 Pulse Rate 77 03/21/18 10:00 Respiratory Rate 19 03/21/18 11:05 Blood Pressure 103/55 03/21/18 10:00 O2 Sat by Pulse Oximetry (%) 96 03/21/18 08:39 Vital Signs Period Temp Pulse Resp BP Sys/Ceballos Pulse Ox Last 24 Hr 98.8 F-100.5 F 67-80 14-21 102-122/42-75 96-98 Intake & Output 03/20/18 03/21/18 03/21/18 23:59 07:59 15:59 Intake Total 323 Output Total 1000 750 Balance -1000 -427 Weight 191 lb 1.6 oz Intake: IV 323 DIPRIVAN - 1,000,000 mcg 133 In 100 ml @ 10 MCG/KG/MIN 4.736 mls/hr IV TITR JUDY Rx#:[id number] Levophed - 8,000 Mcg In 120 D5w - 492 ml @ 5 MCG/MIN 18.75 mls/hr IV TITR JUDY Rx#:[id number] fentanyl 70 Output: Drainage 50 Right Upper Abdomen 50 Urine 1000 700 Scott 1000 700 Other: Voiding Method Indwelling Catheter Indwelling Catheter Bowel Movement No Weight Measurement Method Built in [facility] Constitutional: Yes: Well Nourished, No Distress, Calm Eyes: Yes: Conjunctiva Clear, EOM Intact HENT: Yes: Atraumatic, Normocephalic Neck: Yes: Supple, Trachea Midline Cardiovascular: Yes: Regular Rate and Rhythm, S1, S2 Respiratory: Yes: Regular, Diminished, Dullness (posterolateral bilaterally), Mechanically Ventilated Gastrointestinal: Yes: Normal Bowel Sounds, Soft. No: Tenderness, Tenderness, Epigastrium, Tenderness, Rebound ...Rectal Exam: Yes: Deferred Genitourinary: Yes: Scott Present. No: Bladder Distention, CVA Tenderness - Left, CVA Tenderness - Right Extremities: No: Cool, Cyanosis Edema: Yes Edema: LUE: 1+, RUE: 1+, LLE: 2+, RLE: 2+ Peripheral Pulses WNL: Yes Peripheral Pulses: Left Doralis Pedis: 2+, Right Dorsalis Pedis: 2+ Wound/Incision: Yes: Clean/Dry, Well Approximated, [place] Intact, Open to air. No: Draining, Reddened, Bleeding Neurological: Yes: Alert, Oriented Psychiatric: Yes: Alert, Oriented Labs: CBC, BMP 03/20/18 15:00 03/21/18 05:35 INR, PTT INR 1.39 (0.82-1.09) H 03/20/18 05:55 Microbiology 03/20/18 11:15 Peritoneal Fluid Body Fluid Culture - Preliminary NO AEROBIC GROWTH, 24 HRS 03/20/18 11:15 Peritoneal Fluid LAN Preparation - Preliminary 03/20/18 11:15 Peritoneal Fluid Fungal Culture - Preliminary 03/15/18 11:40 Blood - Central Line Blood Culture - Final NO GROWTH AFTER 5 DAYS INCUBATION 03/15/18 11:30 Blood - Central Line Blood Culture - Final NO GROWTH AFTER 5 DAYS INCUBATION 03/15/18 11:14 Blood - Peripheral Venous Blood Culture - Final NO GROWTH AFTER 5 DAYS INCUBATION 03/15/18 11:14 Blood - Peripheral Venous Blood Culture - Final NO GROWTH AFTER 5 DAYS INCUBATION 03/15/18 11:00 Sputum - Endotrachea Suction/Ventilator Gram Stain - Final 03/15/18 11:00 Sputum - Endotrachea Suction/Ventilator Sputum Culture - Final Klebsiella Oxytoca Serratia Marcescens Enterococcus Faecalis 03/16/18 16:00 Urine - Urine Scott Urine Culture - Final NO GROWTH OBTAINED 03/12/18 14:51 Blood - Peripheral Venous Blood Culture - Final NO GROWTH AFTER 5 DAYS INCUBATION 03/12/18 14:51 Blood - Peripheral Venous Blood Culture - Final NO GROWTH AFTER 5 DAYS INCUBATION 03/13/18 02:25 Peritoneal Fluid Gram Stain - Final 03/13/18 02:25 Peritoneal Fluid Body Fluid Culture - Final NO GROWTH OF AEROBIC ORGANISMS AFTER 48 HOURS INCUBATION 03/13/18 02:25 Peritoneal Fluid Anaerobic Culture - Final NO ANAEROBES WERE ISOLATED 03/12/18 22:12 Urine For Antigen Detection Legionella Antigen - Final 03/12/18 22:12 Urine For Antigen Detection Streptococcus pneumoniae Antigen (M - Final - ....Imaging Chest X-ray: Report Reviewed, Image Reviewed (bilateral consolidation) Problem List - Problems (1) Strangulated inguinal hernia Code(s): K40.30 - UNIL INGUINAL HERNIA, W OBST, W/O GANGR, NOT SPCF RECUR (2) Incarcerated left inguinal hernia Code(s): K40.30 - UNIL INGUINAL HERNIA, W OBST, W/O GANGR, NOT SPCF RECUR (3) BPH (benign prostatic hyperplasia) Code(s): N40.0 - BENIGN PROSTATIC HYPERPLASIA WITHOUT LOWER URINRY TRACT SYMP Qualifiers: Lower urinary tract symptom presence: symptoms present Lower urinary tract symptom detail: urinary frequency Qualified Code(s): N40.1 - Benign prostatic hyperplasia with lower urinary tract symptoms; R35.0 - Frequency of micturition ; R35.0 - Frequency of micturition (4) DDD (degenerative disc disease), cervical Code(s): M50.30 - OTHER CERVICAL DISC DEGENERATION, UNSP CERVICAL REGION (5) SBO (small bowel obstruction) Code(s): K56.609 - UNSP INTESTNL OBST, UNSP TO PARTIAL VERSUS COMPLETE OBST (6) Aspiration pneumonia of both lower lobes due to gastric secretions Code(s): J69.0 - PNEUMONITIS DUE TO INHALATION OF FOOD AND VOMIT
[2018-03-21] MEDS ORDERED: FUROSEMIDE 40 MG/4 ML INJECTABLE VIAL IVPUSH ONE (12:30)
--- NOTE | 2018-03-21 13:35 | PN ---
Progress Note, Physician History of Present Illness: patient stable post choley tube still on vent afebrile o2 requirements lesser - Current Medication List Current Medications: Active Medications Acetaminophen (Ofirmev Injection -) 1,000 mg IVPB Q6H PRN PRN Reason: FEVER Last Admin: 03/21/18 02:26 Dose: 1,000 mg Chlorhexidine Gluconate (Peridex -) 15 ml MM BID JUDY Last Admin: 03/21/18 09:37 Dose: 15 ml Chlorhexidine Gluconate (Hibiclens For Decolonization -) 1 applic TP HS JUDY Last Admin: 03/20/18 21:54 Dose: 1 applic Fentanyl (Sublimaze Injection -) 100 mcg IVPUSH ONCE PRN PRN Reason: PAIN Stop: 03/22/18 12:19 Heparin Sodium (Porcine) (Heparin -) 1,000 unit IVPUSH PRN PRN PRN Reason: Heparin Heparin Sodium (Porcine) (Heparin -) 5,000 unit IVPUSH PRN PRN PRN Reason: Heparin Piperacillin Sod/Tazobactam (Sod 4.5 gm/ Dextrose) 100 mls @ 200 mls/hr IVPB Q8H-IV JUDY; Protocol Last Admin: 03/21/18 09:40 Dose: 200 mls/hr Vancomycin HCl 1,250 mg/ (Dextrose) 250 mls @ 250 mls/2 hr IVPB Q24H JUDY; Protocol Last Admin: 03/20/18 18:07 Dose: 250 mls/2 hr Meropenem 1 gm/ Dextrose 100 mls @ 200 mls/hr IVPB Q8H-IV JUDY Last Admin: 03/21/18 09:36 Dose: 200 mls/hr Norepinephrine Bitartrate 8, (000 mcg/ Dextrose) 500 mls @ 18.75 mls/hr IV TITR JUDY; Protocol Last Admin: 03/21/18 09:41 Dose: 6 mcg/min, 22.5 mls/hr HEPARIN SOD,PORK IN 0.45% NACL (Heparin-1/2ns 25,000 Units/500) 25,000 units in 500 mls @ 20 mls/hr IVPB TITR JUDY; Protocol Last Admin: 03/20/18 15:39 Dose: 1,000 units/hr, 20 mls/hr Midazolam HCl (Versed -) 2 mg IVPUSH Q2H PRN PRN Reason: AGITATION Ondansetron HCl (Zofran Injection) 4 mg IVPUSH Q6H PRN PRN Reason: NAUSEA Pantoprazole Sodium (Protonix Iv) 40 mg IVPUSH DAILY JUDY Last Admin: 03/21/18 09:37 Dose: 40 mg - Objective Vital Signs: Vital Signs Temperature 99.9 F H 03/21/18 12:00 Pulse Rate 86 03/21/18 12:00 Respiratory Rate 16 03/21/18 12:00 Blood Pressure 124/48 03/21/18 12:00 O2 Sat by Pulse Oximetry (%) 96 03/21/18 08:39 Constitutional: Yes: Other Cardiovascular: Yes: Regular Rate and Rhythm Respiratory: Yes: Intubated, Mechanically Ventilated Gastrointestinal: Yes: Soft, Hypoactive Bowel Sounds, Other (choley tube in place) Musculoskeletal: Yes: WNL Extremities: Yes: WNL Neurological: Yes: Other Psychiatric: Yes: Other Labs: CBC, BMP 03/20/18 15:00 03/21/18 05:35 INR, PTT INR 1.39 (0.82-1.09) H 03/20/18 05:55 - ....Imaging Chest X-ray: Report Reviewed, Image Reviewed Assessment/Plan Problem List - Problems (1) Strangulated inguinal hernia Pulmonary evaluation - weaning today? GI Evaluation - Tbili 3.5, 3.6 BP goal MAP 65-70, has a stapled small bowel anastomosis avoid lwo flow states will follow Code(s): K40.30 - UNIL INGUINAL HERNIA, W OBST, W/O GANGR, NOT SPCF RECUR (2) Incarcerated left inguinal hernia Code(s): K40.30 - UNIL INGUINAL HERNIA, W OBST, W/O GANGR, NOT SPCF RECUR (3) BPH (benign prostatic hyperplasia) Code(s): N40.0 - BENIGN PROSTATIC HYPERPLASIA WITHOUT LOWER URINRY TRACT SYMP Qualifiers: Lower urinary tract symptom presence: symptoms present Lower urinary tract symptom detail: urinary frequency Qualified Code(s): N40.1 - Benign prostatic hyperplasia with lower urinary tract symptoms; R35.0 - Frequency of micturition ; R35.0 - Frequency of micturition (4) DDD (degenerative disc disease), cervical Code(s): M50.30 - OTHER CERVICAL DISC DEGENERATION, UNSP CERVICAL REGION (5) SBO (small bowel obstruction) Code(s): K56.609 - UNSP INTESTNL OBST, UNSP TO PARTIAL VERSUS COMPLETE OBST (6) Aspiration pneumonia of both lower lobes due to gastric secretions Code(s): J69.0 - PNEUMONITIS DUE TO INHALATION OF FOOD AND VOMIT r/o acalculus choley plan continue abx monitor for fevers monitor vent setting rest as per icu patient improving await for cx reports from the bile aggressive chest pt cc 40 min
[2018-03-21] MEDS: HEPARIN SOD,PORK IN 0.45% NACL 25,000 UNITS/500 ML INFUS.BAG IVPB SCH ×2 (13:42→17:03)
[2018-03-21] MEDS: VANCOMYCIN 1,250 MG in DEXTROSE 5%-WATER - 250 ML IVPB SCH (16:18)
[2018-03-21] MEDS: MIDAZOLAM HCL 2 MG/2 ML SINGLE DOSE VIAL IVPUSH PRN ×2 (17:35→20:46)
[2018-03-21] MEDS ORDERED: NAPH,MB-DB/K PH,MBDB POWDER PACKET PO ONE (18:52)
--- NOTE | 2018-03-21 19:53 | PN ---
Progress Note (short form) - Note Progress Note: CC: new afib s: remains intubated, off sedation. weaned off levophed today. Current Medications Acetaminophen (Ofirmev Injection -) 1,000 mg IVPB Q6H PRN PRN Reason: FEVER Last Admin: 03/21/18 02:26 Dose: 1,000 mg Chlorhexidine Gluconate (Peridex -) 15 ml MM BID JUDY Last Admin: 03/21/18 09:37 Dose: 15 ml Chlorhexidine Gluconate (Hibiclens For Decolonization -) 1 applic TP HS JUDY Last Admin: 03/20/18 21:54 Dose: 1 applic Fentanyl (Sublimaze Injection -) 100 mcg IVPUSH ONCE PRN PRN Reason: PAIN Stop: 03/22/18 12:19 Last Admin: 03/21/18 17:35 Dose: 100 mcg Heparin Sodium (Porcine) (Heparin -) 1,000 unit IVPUSH PRN PRN PRN Reason: Heparin Heparin Sodium (Porcine) (Heparin -) 5,000 unit IVPUSH PRN PRN PRN Reason: Heparin Piperacillin Sod/Tazobactam (Sod 4.5 gm/ Dextrose) 100 mls @ 200 mls/hr IVPB Q8H-IV JUDY; Protocol Last Admin: 03/21/18 17:25 Dose: 200 mls/hr Vancomycin HCl 1,250 mg/ (Dextrose) 250 mls @ 250 mls/2 hr IVPB Q24H JUDY; Protocol Last Admin: 03/21/18 16:18 Dose: 250 mls/2 hr Meropenem 1 gm/ Dextrose 100 mls @ 200 mls/hr IVPB Q8H-IV JUDY Last Admin: 03/21/18 17:25 Dose: 200 mls/hr Norepinephrine Bitartrate 8, (000 mcg/ Dextrose) 500 mls @ 18.75 mls/hr IV TITR JUDY; Protocol Last Admin: 03/21/18 09:41 Dose: 6 mcg/min, 22.5 mls/hr HEPARIN SOD,PORK IN 0.45% NACL (Heparin-1/2ns 25,000 Units/500) 25,000 units in 500 mls @ 20 mls/hr IVPB TITR JUDY; Protocol Last Admin: 03/21/18 17:03 Dose: Not Given Midazolam HCl (Versed -) 2 mg IVPUSH Q2H PRN PRN Reason: AGITATION Last Admin: 03/21/18 17:35 Dose: 2 mg Ondansetron HCl (Zofran Injection) 4 mg IVPUSH Q6H PRN PRN Reason: NAUSEA Pantoprazole Sodium (Protonix Iv) 40 mg IVPUSH DAILY JUDY Last Admin: 03/21/18 09:37 Dose: 40 mg Vital Signs - 24 hr 03/20/18 03/20/18 03/20/18 19:58 20:05 20:09 Temperature Pulse Rate 71 Respiratory 14 14 Rate Blood Pressure 112/55 O2 Sat by Pulse 97 98 Oximetry (%) 03/20/18 03/20/18 03/21/18 21:41 21:46 00:00 Temperature 100.0 F H Pulse Rate 70 76 69 Respiratory 15 14 Rate Blood Pressure 112/56 106/56 O2 Sat by Pulse 98 Oximetry (%) 03/21/18 03/21/18 03/21/18 00:37 01:00 01:01 Temperature 100.2 F H Pulse Rate 71 76 Respiratory 15 14 Rate Blood Pressure 108/54 107/56 O2 Sat by Pulse Oximetry (%) 03/21/18 03/21/18 03/21/18 02:00 04:00 04:10 Temperature 100.5 F H 100.2 F H Pulse Rate 75 70 Respiratory 18 16 17 Rate Blood Pressure 109/56 102/42 O2 Sat by Pulse Oximetry (%) 03/21/18 03/21/18 03/21/18 06:00 07:00 07:01 Temperature 100.0 F H 100 F H Pulse Rate 68 67 Respiratory 18 16 18 Rate Blood Pressure 102/48 105/54 O2 Sat by Pulse Oximetry (%) 03/21/18 03/21/18 03/21/18 07:27 08:00 08:39 Temperature 100 F H Pulse Rate 68 73 Respiratory 18 21 Rate Blood Pressure 102/49 O2 Sat by Pulse 98 96 96 Oximetry (%) 03/21/18 03/21/18 03/21/18 09:00 09:41 10:00 Temperature 100.2 F H Pulse Rate 72 77 77 Respiratory 16 16 Rate Blood Pressure 104/54 118/55 103/55 O2 Sat by Pulse Oximetry (%) 03/21/18 03/21/18 03/21/18 11:00 11:05 12:00 Temperature 99.9 F H Pulse Rate 85 86 Respiratory 17 19 16 Rate Blood Pressure 121/66 124/48 O2 Sat by Pulse Oximetry (%) 03/21/18 03/21/18 03/21/18 13:00 14:00 14:38 Temperature 100.1 F H 100.3 F H Pulse Rate 93 H 89 Respiratory 17 20 16 Rate Blood Pressure 138/63 138/56 O2 Sat by Pulse Oximetry (%) 03/21/18 03/21/18 03/21/18 15:00 16:00 17:00 Temperature 100.4 F H 100.4 F H Pulse Rate 95 H 97 H 97 H Respiratory 20 20 17 Rate Blood Pressure 119/64 143/60 140/52 O2 Sat by Pulse Oximetry (%) 03/21/18 03/21/18 03/21/18 17:24 18:00 19:00 Temperature Pulse Rate 96 H 97 H Respiratory 16 16 17 Rate Blood Pressure 131/54 138/60 O2 Sat by Pulse Oximetry (%) Intake & Output 03/19/18 03/20/18 03/21/18 03/22/18 07:59 07:59 07:59 07:59 Intake Total 3032.0 766 1577.4 1640 Output Total 900 3900 1790 1400 Balance 2132.0 -3134 -212.6 240 Weight 195 lb 3.2 oz 190 lb 14.4 oz 191 lb 1.6 oz nad no jvd minimally responsive, intubated irreg, s1s2 no mrg cta bl anteriorly, mechanical breath sounds. 1+ le edema bl, no c/c pos dp pt no jaundice diaphoresis abd nd pos bs CBC, BMP 03/20/18 15:00 03/21/18 05:35 tele: rate controlled afib ecg: sr, nl intervals, no ischemic changes echo 02/2018: nl lv/rv, mild mr/tr/ar cxr: chf, slightly improved a/p: 82 m hx gerd, bph, here with abd pain/sepsis - found to have sbo, now s/p OR hospital course c/b new afib. septic shock: -remains intubated, but now off levophed. bp stable. cont abx per ID - + congestion on cxr. s/p IV lasix 03/21 again today. pafib: -new onset here -rate controlled w/o meds -echo unremarkable -chadsvasc warrants ac. on hep gtt -cont tele sbo: -s/p surgery 03/13 -also with gall stones and s/p IR drain 03/20
[2018-03-21] MEDS: CHLORHEXIDINE GLUCONATE 4% CLEANSER FOR DECOLONIZATION TP SCH (21:51)
[2018-03-22] MEDS ORDERED: DEXTROSE 5%-WATER 100 ML IVPB ONE ×3 (02:35→17:02)
[2018-03-22] MEDS ORDERED: PIPERACILLIN/TAZOBACTAM 4.5 GM VIAL IVPB ONE ×3 (02:35→17:01)
[2018-03-22] MEDS ORDERED: PT OWN MED DRAWER 7, Y5N ONE ×3 (02:35→17:01)
[2018-03-22] MEDS: MEROPENEM 1 GM in DEXTROSE 5%-WATER 100 ML IVPB SCH ×3 (02:49→17:09)
[2018-03-22] MEDS: PIPERACILLIN/TAZOB 4.5 GM 4.5 GM in DEXTROSE 5%-WATER 100 ML IVPB SCH ×3 (02:49→17:09)
[2018-03-22] MEDS: MIDAZOLAM HCL 2 MG/2 ML SINGLE DOSE VIAL IVPUSH PRN (03:28)
[2018-03-22 06:34] LABS: BASO % 0.2 % (0-2.0); EOS % 0.3 % (0-4.5); HEMATOCRIT 42.2 % (35.4-49); HEMOGLOBIN 13.8 GM/dL (11.7-16.9); LYMPH % 6.5 % (8-40); MCH 29.6 pg (25.7-33.7); MCHC 32.6 g/dl (32.0-35.9); MEAN CELL VOLUME 90.9 fl (80-96); MEAN PLT VOLUME 9.5 fl (7.5-11.1); PLATELET COUNT 271 K/MM3 (134-434); RBC 4.65 M/mm3 (4.00-5.60); RDW 14.4 % (11.9-15.9); WHITE BLOOD COUNT 18.4 K/mm3 (4.0-10.0)
[2018-03-22 06:52] LABS: CHLORIDE 97 mmol/L (98-107); POTASSIUM 3.7 mmol/L (3.5-5.1); SODIUM 140 mmol/L (136-145)
[2018-03-22 06:58] LABS: ALBUMIN 1.1 g/dl (3.4-5.0); ALK PHOS 116 U/L (45-117); ANION GAP 4 (8-16); BILIRUBIN,TOTAL 3.5 mg/dL (0.2-1.0); BLOOD UREA NITROGEN 27 mg/dL (7-18); CO2 39 mmol/L (21-32); CREATININE 0.8 mg/dL (0.7-1.3); GLUCOSE,RANDOM 275 mg/dL (74-106); PHOSPHOROUS 1.5 mg/dL (2.5-4.9); SGOT/AST 141 U/L (15-37); SGPT/ALT 106 U/L (12-78); TOT PROT 4.8 g/dl (6.4-8.2)
[2018-03-22 07:01] LABS: CALCIUM 6.9 mg/dL (8.5-10.1)
--- NOTE | 2018-03-22 07:22 | PN ---
Teaching Attending Note Name of Resident: Norris Lee ATTENDING PHYSICIAN STATEMENT I saw and evaluated the patient. I reviewed the resident's note and discussed the case with the resident. I agree with the resident's findings and plan as documented. SUBJECTIVE:intubated/sedated OBJECTIVE: Last Vital Signs Temp Pulse Resp BP Pulse Ox 100.1 F H 94 H 14 132/54 95 03/22/18 06:00 03/22/18 06:00 03/22/18 06:08 03/22/18 06:00 03/21/18 22:00 Intake & Output 03/19/18 03/20/18 03/21/18 03/22/18 23:59 23:59 23:59 23:59 Intake Total 1172.8 1590.4 1963 140 Output Total 3800 1440 2850 320 Balance -2627.2 150.4 -887 -180 Weight 195 lb 3.2 oz 190 lb 14.4 oz 191 lb 1.6 oz 192 lb 8 oz General resting comfortable, opens eyes to tactile stimuli CV S1 s2 irregular Lungs CTA anteriorly Abdomen soft distended midline surgical incision with good approximation panda in place. hypoactive BS. RUQ LEIF drain Extremities no pedal edema ASSESSMENT AND PLAN: 82 year old man with a history of DDD, GERD, diverticulosis, BPH who presented to the ED with abdominal pain and vomiting. 1. Acute hypoxic respiratory failure secondary to sepsis, aspiration pneumonia, ARDS - still on full vent support. tolerated cpap trial for 4H yesterday. daily cpap trials, sedation vacation. further vent management per ICU team. 2. Septic shock due to aspiration PNA- intermittent low grade fevers. Tm100.4. lactic acidosis resolved. off pressors since last night. on Meropenem/vanco/ Zosyn. check vanco level. s/p cholostomy tube placed yesterday draining bile. f/ u peritoneal fluid pending. no vegetations seen on echo 3. Atrial fibrillation/flutter- remains in aflutter presently. rate controlled. on heparin ggt. echo reviewed. cardio on board 4. SBO with infarcted bowel- s/p exploratory laparotomy, segmental terminal ileum resection with primary anastomosis 03/13. tolerated Tube feeds. 5. Possible acalculous cholecystitis- s/p percutaneous drainage by IR 03/20. draining bile. does not appear infected. monitor output 50cc 6. Acute kidney injury - Resolved 7. Hypoalbuminemia 8. Pseudohypocalcemia- Corrected calcium is 9.22 9. Hypophosphatemia-kphos IV 10. Hepatic transaminitis- total bili increased due to hypotension. trended up. now off pressors will monitor to see if trends down, has cholostomy in place draining bile. may need to consider stopping zosyn if does not improve. will d/ w ID 11. Stress ulcer prophylaxis- Continue Protonix 12. DVT prophylaxis- On heparin ggt The care of this patient involved high complexity decision making to prevent further life threatening deterioration of the patient's condition and/or to evaluate & treat vital organ system(s) failure or risk of failure. Critical care time spent in reviewing chart, evaluating patient and formulating plan - 35 minutes.
[2018-03-22] MEDS: HEPARIN NA (PORCINE) 5,000 UNITS/ML 1ML VIAL IVPUSH PRN (08:17)
--- NOTE | 2018-03-22 09:35 | PN ---
Progress Note (short form) - Note Progress Note: PULMONARY/CCM Pt seen and examined in the ICU. Remains intubated, sedated. Vented on volume assist control with 60% FiO2, PEEP 12. Vital Signs Period Temp Pulse Resp BP Sys/Ceballos Pulse Ox Last 24 Hr 98.2 F-100.4 F 77-102 12-23 103-144/48-66 95-98 Intake & Output 03/19/18 03/20/18 03/21/18 03/22/18 23:59 23:59 23:59 23:59 Intake Total 1172.8 1590.4 1963 140 Output Total 3800 1440 2850 320 Balance -2627.2 150.4 -887 -180 Weight 88.541 kg 86.591 kg 86.682 kg 87.317 kg Gen: intubated, sedated Heart: RRR Lung: scattered rhonchi Abd: soft, dressings intact Ext: + edema CBC, BMP 03/22/18 05:30 03/22/18 05:30 Active Medications Acetaminophen (Ofirmev Injection -) 1,000 mg IVPB Q6H PRN PRN Reason: FEVER Last Admin: 03/21/18 02:26 Dose: 1,000 mg Chlorhexidine Gluconate (Peridex -) 15 ml MM BID JUDY Last Admin: 03/21/18 21:51 Dose: 15 ml Chlorhexidine Gluconate (Hibiclens For Decolonization -) 1 applic TP HS JUDY Last Admin: 03/21/18 21:51 Dose: 1 applic Fentanyl (Sublimaze Injection -) 100 mcg IVPUSH ONCE PRN PRN Reason: PAIN Stop: 03/22/18 12:19 Last Admin: 03/22/18 04:40 Dose: 100 mcg Heparin Sodium (Porcine) (Heparin -) 1,000 unit IVPUSH PRN PRN PRN Reason: Heparin Last Admin: 03/22/18 08:17 Dose: 1,000 unit Heparin Sodium (Porcine) (Heparin -) 5,000 unit IVPUSH PRN PRN PRN Reason: Heparin Piperacillin Sod/Tazobactam (Sod 4.5 gm/ Dextrose) 100 mls @ 200 mls/hr IVPB Q8H-IV JUDY; Protocol Last Admin: 03/22/18 02:49 Dose: 200 mls/hr Vancomycin HCl 1,250 mg/ (Dextrose) 250 mls @ 250 mls/2 hr IVPB Q24H JUDY; Protocol Last Admin: 03/21/18 16:18 Dose: 250 mls/2 hr Meropenem 1 gm/ Dextrose 100 mls @ 200 mls/hr IVPB Q8H-IV JUDY Last Admin: 03/22/18 02:49 Dose: 200 mls/hr Norepinephrine Bitartrate 8, (000 mcg/ Dextrose) 500 mls @ 18.75 mls/hr IV TITR JUDY; Protocol Last Admin: 03/21/18 21:51 Dose: Not Given HEPARIN SOD,PORK IN 0.45% NACL (Heparin-1/2ns 25,000 Units/500) 25,000 units in 500 mls @ 20 mls/hr IVPB TITR JUDY; Protocol Last Titration: 03/22/18 08:14 Dose: 1,100 units/hr, 22 mls/hr Potassium Phosphate 30 mm/ (Sodium Chloride) 260 mls @ 62.5 mls/hr IVPB ONCE ONE Stop: 03/22/18 14:09 Midazolam HCl (Versed -) 2 mg IVPUSH Q2H PRN PRN Reason: AGITATION Last Admin: 03/22/18 03:28 Dose: 2 mg Ondansetron HCl (Zofran Injection) 4 mg IVPUSH Q6H PRN PRN Reason: NAUSEA Pantoprazole Sodium (Protonix Iv) 40 mg IVPUSH DAILY [facility] Last Admin: 03/21/18 09:37 Dose: 40 mg A/P Acute Hypoxic Respiratory Failure Pneumonia - ?Aspiration ARDS Incarcerated Inguinal Hernia s/p ex-lap/segmental terminal ileum resection/primary anastamosis 03/13 r/o Acalculus Cholecystitis s/p percutaneous cholecystostomy Septic Shock resolving Acute Kidney Injury improving Lactic Acidosis resolved New onset Paroxysmal Atrial Fibrillation Diverticulosis BPH - continue antibiotics - f/u cultures - rate controlled - continue anticoagulation - lasix today - monitor urine output, creatinine - low tidal volume ventilation - keep Pplat <30 - taper FiO2, PEEP to keep SpO2 >90% - enteral feeds - DVT/GI prophylaxis - continue ICU monitoring critical care time spent in reviewing chart, evaluating patient and formulating plan 35 min
[2018-03-22] MEDS ORDERED: FUROSEMIDE 40 MG/4 ML INJECTABLE VIAL IVPUSH ONE (09:38)
[2018-03-22] MEDS ORDERED: POTASSIUM PHOSPHATE 30 MM in SODIUM CHLORIDE 250 ML IVPB ONE (10:00)
[2018-03-22] MEDS: CHLORHEXIDINE GLUCONATE 0.12% 15ML CUP MM SCH ×2 (10:09→21:28)
[2018-03-22] MEDS: PANTOPRAZOLE SODIUM 40 MG VIAL IVPUSH SCH (10:10)
--- NOTE | 2018-03-22 12:16 | PN ---
Physical Exam: SUBJECTIVE: Patient seen and examined at bedside remains intubated and sedated off pressors FiO2 decrease from 100% to 50% and son at bedside- status update given and all questions answered OBJECTIVE: Vital Signs Period Temp Pulse Resp BP Sys/Ceballos Pulse Ox Last 24 Hr 98.2 F-100.4 F 86-102 12-23 119-147/52-64 95-98 GENERAL: Intubated and sedated EYES: PERRLA NECK: Trachea midline. Neck supple. LUNGS: Breath sounds equal, clear to auscultation bilaterally, no wheezes, no crackles, no accessory muscle use. HEART: Irregular S1 S2 soft 3/6 murmur at RUSB ABDOMEN: Soft, no grimace to palpation. slightly distended. staple line C/D/I no drainage, erythema, or fluctuance. cholecystostomy tube drainage dark and bilious EXTREMITIES: warm, well-perfused Laboratory Results - last 24 hr 03/22/18 03/22/18 03/22/18 05:30 05:30 05:30 WBC 18.4 H RBC 4.65 Hgb 13.8 Hct 42.2 MCV 90.9 MCH 29.6 MCHC 32.6 RDW 14.4 Plt Count 271 MPV 9.5 Neutrophils % 88.0 H Lymphocytes % 6.5 L D Monocytes % 5.0 Eosinophils % 0.3 D Basophils % 0.2 Nucleated RBC % 0 PTT (Actin FS) 49.3 H Sodium 140 Potassium 3.7 Chloride 97 L Carbon Dioxide 39 H Anion Gap 4 L BUN 27 H Creatinine 0.8 Creat Clearance w eGFR > 60 Random Glucose 275 H D Calcium 6.9 L* Phosphorus 1.5 L Total Bilirubin 3.5 H D AST 141 H ALT 106 H Alkaline Phosphatase 116 D Total Protein 4.8 L Albumin 1.1 L Active Medications Generic Name Dose Route Start Last Admin Trade Name Freq PRN Reason Stop Dose Admin Acetaminophen 1,000 mg 03/17/18 18:49 03/21/18 02:26 Ofirmev Injection - IVPB 1,000 mg Q6H PRN Administration FEVER Chlorhexidine Gluconate 15 ml 03/13/18 10:00 03/22/18 10:09 Peridex - MM 15 ml BID JUDY Administration Chlorhexidine Gluconate 1 applic 03/13/18 22:00 03/21/18 21:51 Hibiclens For Decolonization - TP 1 applic HS JUDY Administration Fentanyl 100 mcg 03/21/18 12:20 03/22/18 04:40 Sublimaze Injection - IVPUSH 03/22/18 12:19 100 mcg ONCE PRN Administration PAIN Heparin Sodium (Porcine) 1,000 unit 03/20/18 14:07 03/22/18 08:17 Heparin - IVPUSH 1,000 unit PRN PRN Administration Heparin Heparin Sodium (Porcine) 5,000 unit 03/20/18 14:07 Heparin - IVPUSH PRN PRN Heparin Piperacillin Sod/Tazobactam 100 mls @ 200 mls/hr 03/17/18 18:00 03/22/18 10: 10 Sod 4.5 gm/ Dextrose IVPB 200 mls/hr Q8H-IV JUDY Administration Protocol Vancomycin HCl 1,250 mg/ 250 mls @ 250 mls/2 hr 03/17/18 16:00 03/21/18 16:18 Dextrose IVPB 250 mls/2 hr Q24H JUDY Administration Protocol Meropenem 1 gm/ Dextrose 100 mls @ 200 mls/hr 03/19/18 18:00 03/22/18 11:26 IVPB 200 mls/hr Q8H-IV JUDY Administration Norepinephrine Bitartrate 8, 500 mls @ 18.75 mls/hr 03/19/18 21:30 03/21/18 21:51 000 mcg/ Dextrose IV Not Given TITR JUDY Protocol 5 MCG/MIN HEPARIN SOD,PORK IN 0.45% NACL 25,000 units in 500 mls @ 20 mls/hr 03/20/18 14 :15 03/22/18 08:14 Heparin-1/2ns 25,000 Units/500 IVPB 1,100 units/hr TITR JUDY 22 mls/hr Titration Protocol 1,000 UNITS/HR Potassium Phosphate 30 mm/ 260 mls @ 62.5 mls/hr 03/22/18 10:00 03/22/18 10: 09 Sodium Chloride IVPB 03/22/18 14:09 62.5 mls/hr ONCE ONE Administration Midazolam HCl 2 mg 03/21/18 12:20 03/22/18 03:28 Versed - IVPUSH 2 mg Q2H PRN Administration AGITATION Ondansetron HCl 4 mg 03/13/18 04:30 Zofran Injection IVPUSH Q6H PRN NAUSEA Pantoprazole Sodium 40 mg 03/13/18 10:00 03/22/18 10:10 Protonix Iv IVPUSH 40 mg DAILY JUDY Administration ASSESSMENT/PLAN: 82 y/o gentleman with multiple medical problems presents to the hospital with SBO and bowel ischemia s/p ex-lap small bowel resection. Septic shock: secondary to a combination of bowel ischemia. Pneumonia, and acute cholecystitis s/p cholecystosotmy drainage s/p ex-lap small bowel resection septic shock resolved continue vanco meropenem and zosyn f/u vanco level f/u surgery service off levophed continue ventilatory support and wean to minimal vent settings. strict I/Os acute hypoxic respiratory failure: secondary to a combination of ARDS, aspiration PNA, and sepsis. continue ventilatory support low tidal volume with PEEP FiO2 requirement decreased to 50% transaminitis:s/p cholecystotomy tube placement bile is draining pressors stopped will give time for LFTs to eqilibriate from shock and pressor support may be side effect of zosyn. will consider stopping if LFTs and hyperbilirubinemia does not improve. paroxysmal Afib/A flutter: continue heparin gtt currently rate controlled f/u cardiology ANATOLIY:secondary to hypoperfusion from shock state improved lasix for diuresis BPH: hold flomax and finasteride for now FEN: no IVF replete potassium and phosphorus-hypokalemia and hypophosphatemia pseudohypocalcemia corrected is WNL tube feeds PPx: Heparin gtt/SCDs Protonix PT when able to participate case discussed with attending Dr. Jefferson Visit type - Emergency Visit Emergency Visit: Yes ED Registration Date: 03/12/18 Care time: The patient presented to the Emergency Department on the above date and was hospitalized for further evaluation of their emergent condition. - New Patient This patient is new to me today: No - Critical Care Critical Care patient: Yes Total Critical Care Time (in minutes): 35 Critical Care Statement: The care of this patient involved high complexity decision making to prevent further life threatening deterioration of the patient 's condition and/or to evaluate & treat vital organ system(s) failure or risk of failure.
--- NOTE | 2018-03-22 12:17 | PN ---
Progress Note, Physician History of Present Illness: patient stable off of pressors no other issues family in room making good urine still spiking low grade fever - Current Medication List Current Medications: Active Medications Acetaminophen (Ofirmev Injection -) 1,000 mg IVPB Q6H PRN PRN Reason: FEVER Last Admin: 03/21/18 02:26 Dose: 1,000 mg Chlorhexidine Gluconate (Peridex -) 15 ml MM BID JUDY Last Admin: 03/22/18 10:09 Dose: 15 ml Chlorhexidine Gluconate (Hibiclens For Decolonization -) 1 applic TP HS JUDY Last Admin: 03/21/18 21:51 Dose: 1 applic Fentanyl (Sublimaze Injection -) 100 mcg IVPUSH ONCE PRN PRN Reason: PAIN Stop: 03/22/18 12:19 Last Admin: 03/22/18 04:40 Dose: 100 mcg Heparin Sodium (Porcine) (Heparin -) 1,000 unit IVPUSH PRN PRN PRN Reason: Heparin Last Admin: 03/22/18 08:17 Dose: 1,000 unit Heparin Sodium (Porcine) (Heparin -) 5,000 unit IVPUSH PRN PRN PRN Reason: Heparin Piperacillin Sod/Tazobactam (Sod 4.5 gm/ Dextrose) 100 mls @ 200 mls/hr IVPB Q8H-IV JUDY; Protocol Last Admin: 03/22/18 10:10 Dose: 200 mls/hr Vancomycin HCl 1,250 mg/ (Dextrose) 250 mls @ 250 mls/2 hr IVPB Q24H JUDY; Protocol Last Admin: 03/21/18 16:18 Dose: 250 mls/2 hr Meropenem 1 gm/ Dextrose 100 mls @ 200 mls/hr IVPB Q8H-IV JUDY Last Admin: 03/22/18 11:26 Dose: 200 mls/hr Norepinephrine Bitartrate 8, (000 mcg/ Dextrose) 500 mls @ 18.75 mls/hr IV TITR JUDY; Protocol Last Admin: 03/21/18 21:51 Dose: Not Given HEPARIN SOD,PORK IN 0.45% NACL (Heparin-1/2ns 25,000 Units/500) 25,000 units in 500 mls @ 20 mls/hr IVPB TITR JUDY; Protocol Last Titration: 03/22/18 08:14 Dose: 1,100 units/hr, 22 mls/hr Potassium Phosphate 30 mm/ (Sodium Chloride) 260 mls @ 62.5 mls/hr IVPB ONCE ONE Stop: 03/22/18 14:09 Last Admin: 03/22/18 10:09 Dose: 62.5 mls/hr Midazolam HCl (Versed -) 2 mg IVPUSH Q2H PRN PRN Reason: AGITATION Last Admin: 03/22/18 03:28 Dose: 2 mg Ondansetron HCl (Zofran Injection) 4 mg IVPUSH Q6H PRN PRN Reason: NAUSEA Pantoprazole Sodium (Protonix Iv) 40 mg IVPUSH DAILY JUDY Last Admin: 03/22/18 10:10 Dose: 40 mg - Objective Vital Signs: Vital Signs Temperature 99.5 F 03/22/18 10:00 Pulse Rate 96 H 03/22/18 10:00 Respiratory Rate 21 03/22/18 10:00 Blood Pressure 147/59 03/22/18 10:00 O2 Sat by Pulse Oximetry (%) 95 03/22/18 10:00 Constitutional: Yes: Other Cardiovascular: Yes: Tachycardia, S1, S2 Respiratory: Yes: Intubated, Mechanically Ventilated Gastrointestinal: Yes: Normal Bowel Sounds, Soft Musculoskeletal: Yes: Other Extremities: Yes: Other Edema: LLE: Trace, RLE: Trace Neurological: Yes: Other Labs: CBC, BMP 03/22/18 05:30 03/22/18 05:30 INR, PTT INR 1.39 (0.82-1.09) H 03/20/18 05:55 Assessment/Plan Problem List - Problems (1) Strangulated inguinal hernia Pulmonary evaluation - weaning today? GI Evaluation - Tbili 3.5, 3.6 BP goal MAP 65-70, has a stapled small bowel anastomosis avoid lwo flow states will follow Code(s): K40.30 - UNIL INGUINAL HERNIA, W OBST, W/O GANGR, NOT SPCF RECUR (2) Incarcerated left inguinal hernia Code(s): K40.30 - UNIL INGUINAL HERNIA, W OBST, W/O GANGR, NOT SPCF RECUR (3) BPH (benign prostatic hyperplasia) Code(s): N40.0 - BENIGN PROSTATIC HYPERPLASIA WITHOUT LOWER URINRY TRACT SYMP Qualifiers: Lower urinary tract symptom presence: symptoms present Lower urinary tract symptom detail: urinary frequency Qualified Code(s): N40.1 - Benign prostatic hyperplasia with lower urinary tract symptoms; R35.0 - Frequency of micturition ; R35.0 - Frequency of micturition (4) DDD (degenerative disc disease), cervical Code(s): M50.30 - OTHER CERVICAL DISC DEGENERATION, UNSP CERVICAL REGION (5) SBO (small bowel obstruction) Code(s): K56.609 - UNSP INTESTNL OBST, UNSP TO PARTIAL VERSUS COMPLETE OBST (6) Aspiration pneumonia of both lower lobes due to gastric secretions Code(s): J69.0 - PNEUMONITIS DUE TO INHALATION OF FOOD AND VOMIT r/o acalculus choley plan continue abx monitor for fevers monitor vent setting rest as per icu patient improving await for cx reports from the bile aggressive chest pt continue suctioning cc 40 min
--- NOTE | 2018-03-22 15:40 | PN ---
Progress Note, Physician Chief Complaint: SBO History of Present Illness: 82 yo male PMH BPH, degernerative disc disease (cervical), diverticulosis, hemorrhoids presented to the ED with abdominal pain and vomiting for on day. He reports that he was weight training yesterday and developed some groin pain. He remains sedated and intubated in the ICU post op give poor saturation preop. He on low dose vasopressor support overnight. - Current Medication List Current Medications: Active Medications Acetaminophen (Ofirmev Injection -) 1,000 mg IVPB Q6H PRN PRN Reason: FEVER Last Admin: 03/21/18 02:26 Dose: 1,000 mg Chlorhexidine Gluconate (Peridex -) 15 ml MM BID JUDY Last Admin: 03/22/18 10:09 Dose: 15 ml Chlorhexidine Gluconate (Hibiclens For Decolonization -) 1 applic TP HS JUDY Last Admin: 03/21/18 21:51 Dose: 1 applic Heparin Sodium (Porcine) (Heparin -) 1,000 unit IVPUSH PRN PRN PRN Reason: Heparin Last Admin: 03/22/18 08:17 Dose: 1,000 unit Heparin Sodium (Porcine) (Heparin -) 5,000 unit IVPUSH PRN PRN PRN Reason: Heparin Piperacillin Sod/Tazobactam (Sod 4.5 gm/ Dextrose) 100 mls @ 200 mls/hr IVPB Q8H-IV JUDY; Protocol Last Admin: 03/22/18 10:10 Dose: 200 mls/hr Vancomycin HCl 1,250 mg/ (Dextrose) 250 mls @ 250 mls/2 hr IVPB Q24H JUDY; Protocol Last Admin: 03/21/18 16:18 Dose: 250 mls/2 hr Meropenem 1 gm/ Dextrose 100 mls @ 200 mls/hr IVPB Q8H-IV JUDY Last Admin: 03/22/18 11:26 Dose: 200 mls/hr Norepinephrine Bitartrate 8, (000 mcg/ Dextrose) 500 mls @ 18.75 mls/hr IV TITR JUDY; Protocol Last Admin: 03/21/18 21:51 Dose: Not Given HEPARIN SOD,PORK IN 0.45% NACL (Heparin-1/2ns 25,000 Units/500) 25,000 units in 500 mls @ 20 mls/hr IVPB TITR JUDY; Protocol Last Titration: 03/22/18 08:14 Dose: 1,100 units/hr, 22 mls/hr Midazolam HCl (Versed -) 2 mg IVPUSH Q2H PRN PRN Reason: AGITATION Last Admin: 03/22/18 03:28 Dose: 2 mg Ondansetron HCl (Zofran Injection) 4 mg IVPUSH Q6H PRN PRN Reason: NAUSEA Pantoprazole Sodium (Protonix Iv) 40 mg IVPUSH DAILY [facility] Last Admin: 03/22/18 10:10 Dose: 40 mg - Objective Vital Signs: Vital Signs Temperature 99.7 F H 03/22/18 13:58 Pulse Rate 114 H 03/22/18 13:58 Respiratory Rate 21 03/22/18 13:58 Blood Pressure 151/83 03/22/18 13:58 O2 Sat by Pulse Oximetry (%) 95 03/22/18 10:00 Vital Signs Period Temp Pulse Resp BP Sys/Ceballos Pulse Ox Last 24 Hr 98.2 F-100.4 F 86-114 12-23 123-154/52-83 95-98 Intake & Output 03/21/18 03/22/18 03/22/18 23:59 07:59 15:59 Intake Total 738 140 Output Total 739 204 1472 Balance 38 -180 -2300 Weight 192 lb 8 oz Intake: IV 80 140 HEPARIN-1/2NS 25,000 80 140 UNITS/500 25,000 units In 500 ml @ 1,000 UNITS/HR 20 mls/hr IVPB TITR JUDY Rx#:[id number] Levophed - 8,000 Mcg In 0 D5w - 492 ml @ 5 MCG/MIN 18.75 mls/hr IV TITR JUDY Rx#:[id number] IVPB 450 Tube Feeding 168 Tube Irrigant 40 Output: Drainage 20 Right Upper Abdomen 20 Urine 664 508 0637 Quintero [phone] Other: Voiding Method Indwelling Catheter Indwelling Catheter Bowel Movement Yes # Bowel Movements 1 Weight Measurement Method Built in [facility] Constitutional: Yes: Well Nourished, No Distress, Calm Eyes: Yes: Conjunctiva Clear, EOM Intact HENT: Yes: Atraumatic, Normocephalic Neck: Yes: Supple, Trachea Midline Cardiovascular: Yes: Regular Rate and Rhythm, S1, S2 Respiratory: Yes: Regular, Diminished, Mechanically Ventilated Gastrointestinal: Yes: Normal Bowel Sounds, Soft. No: Distention ...Rectal Exam: Yes: Deferred Genitourinary: No: CVA Tenderness - Left, CVA Tenderness - Right Musculoskeletal: No: Muscle Pain, Muscle Weakness Extremities: No: Cool, Cyanosis Edema: Yes Edema: LUE: 1+, RUE: 1+, LLE: 1+, RLE: 1+ Peripheral Pulses WNL: Yes Peripheral Pulses: Left Radial: 2+, Right Radial: 2+, Left Doralis Pedis: 2+, Right Dorsalis Pedis: 2+ Integumentary: No: Jaundice, Rash Wound/Incision: Yes: Clean/Dry, Well Approximated, [place] Intact. No: Draining , Reddened, Bleeding Neurological: Yes: Alert, Oriented Psychiatric: Yes: Alert, Oriented Labs: CBC, BMP 03/22/18 05:30 03/22/18 05:30 INR, PTT INR 1.39 (0.82-1.09) H 03/20/18 05:55 Microbiology 03/20/18 11:15 Peritoneal Fluid Gram Stain - Final 03/20/18 11:15 Peritoneal Fluid Body Fluid Culture - Final NO GROWTH OF AEROBIC ORGANISMS AFTER 48 HOURS INCUBATION 03/20/18 11:15 Peritoneal Fluid Anaerobic Culture - Final NO ANAEROBES WERE ISOLATED 03/20/18 11:15 Peritoneal Fluid LAN Preparation - Preliminary 03/20/18 11:15 Peritoneal Fluid Fungal Culture - Preliminary 03/15/18 11:40 Blood - Central Line Blood Culture - Final NO GROWTH AFTER 5 DAYS INCUBATION 03/15/18 11:30 Blood - Central Line Blood Culture - Final NO GROWTH AFTER 5 DAYS INCUBATION 03/15/18 11:14 Blood - Peripheral Venous Blood Culture - Final NO GROWTH AFTER 5 DAYS INCUBATION 03/15/18 11:14 Blood - Peripheral Venous Blood Culture - Final NO GROWTH AFTER 5 DAYS INCUBATION 03/15/18 11:00 Sputum - Endotrachea Suction/Ventilator Gram Stain - Final 03/15/18 11:00 Sputum - Endotrachea Suction/Ventilator Sputum Culture - Final Klebsiella Oxytoca Serratia Marcescens Enterococcus Faecalis 03/16/18 16:00 Urine - Urine Quintero Urine Culture - Final NO GROWTH OBTAINED 03/12/18 14:51 Blood - Peripheral Venous Blood Culture - Final NO GROWTH AFTER 5 DAYS INCUBATION 03/12/18 14:51 Blood - Peripheral Venous Blood Culture - Final NO GROWTH AFTER 5 DAYS INCUBATION 03/13/18 02:25 Peritoneal Fluid Gram Stain - Final 03/13/18 02:25 Peritoneal Fluid Body Fluid Culture - Final NO GROWTH OF AEROBIC ORGANISMS AFTER 48 HOURS INCUBATION 03/13/18 02:25 Peritoneal Fluid Anaerobic Culture - Final NO ANAEROBES WERE ISOLATED 03/12/18 22:12 Urine For Antigen Detection Legionella Antigen - Final 03/12/18 22:12 Urine For Antigen Detection Streptococcus pneumoniae Antigen (M - Final - ....Imaging Chest X-ray: Report Reviewed, Image Reviewed (no interval change, but extensive consolidation bilaterally) Problem List - Problems (1) Strangulated inguinal hernia Assessment/Plan: 82yo male MMP relatively healthy with SBO abdominal pain non reducible LIH, unclear transition point and no clear bowel ischemia identified. Bibasilar pulmonary consolidation and hoarsness may be a sequela of an aspiration. POD#8 s /p Exploratory Laparotomy, segmental ressection of SB and primary stapled anastomosis for strangulated RIH. low grade fevers persists, pneumonia PF Ratio 300. Patient has soft bowel movements. CT scan showed worsening consolidation of the lower lobes, SB anastomosis is intact, obstruction is relieved. S/p percutaneous cholecystostomy in IR. ICU management continue quintero for I&O NGT feeds to goal for IBW IV antibiotics per ID GI and DVT prophylaxsis will follow This patient is critically ill. Time spent reviewing chart, examining patient, talking with providers and/or family and documentation is 45 minutes Code(s): K40.30 - UNIL INGUINAL HERNIA, W OBST, W/O GANGR, NOT SPCF RECUR (2) Incarcerated left inguinal hernia Code(s): K40.30 - UNIL INGUINAL HERNIA, W OBST, W/O GANGR, NOT SPCF RECUR (3) BPH (benign prostatic hyperplasia) Code(s): N40.0 - BENIGN PROSTATIC HYPERPLASIA WITHOUT LOWER URINRY TRACT SYMP Qualifiers: Lower urinary tract symptom presence: symptoms present Lower urinary tract symptom detail: urinary frequency Qualified Code(s): N40.1 - Benign prostatic hyperplasia with lower urinary tract symptoms; R35.0 - Frequency of micturition ; R35.0 - Frequency of micturition (4) DDD (degenerative disc disease), cervical Code(s): M50.30 - OTHER CERVICAL DISC DEGENERATION, UNSP CERVICAL REGION (5) SBO (small bowel obstruction) Code(s): K56.609 - UNSP INTESTNL OBST, UNSP TO PARTIAL VERSUS COMPLETE OBST (6) Aspiration pneumonia of both lower lobes due to gastric secretions Code(s): J69.0 - PNEUMONITIS DUE TO INHALATION OF FOOD AND VOMIT
[2018-03-22] MEDS: HEPARIN SOD,PORK IN 0.45% NACL 25,000 UNITS/500 ML INFUS.BAG IVPB SCH (15:46)
[2018-03-22] MEDS: VANCOMYCIN 1,250 MG in DEXTROSE 5%-WATER - 250 ML IVPB SCH (15:47)
[2018-03-22] MEDS: ACETAMINOPHEN 1000 MG/100 ML VIAL (NON FORMULARY) IVPB PRN (17:09)
--- NOTE | 2018-03-22 21:10 | PN ---
Progress Note (short form) - Note Progress Note: CC: new afib s: remains intubated, off sedation. off levophed. Current Medications Acetaminophen (Ofirmev Injection -) 1,000 mg IVPB Q6H PRN PRN Reason: FEVER Last Admin: 03/22/18 17:09 Dose: 1,000 mg Chlorhexidine Gluconate (Peridex -) 15 ml MM BID JUDY Last Admin: 03/22/18 10:09 Dose: 15 ml Chlorhexidine Gluconate (Hibiclens For Decolonization -) 1 applic TP HS JUDY Last Admin: 03/21/18 21:51 Dose: 1 applic Heparin Sodium (Porcine) (Heparin -) 1,000 unit IVPUSH PRN PRN PRN Reason: Heparin Last Admin: 03/22/18 08:17 Dose: 1,000 unit Heparin Sodium (Porcine) (Heparin -) 5,000 unit IVPUSH PRN PRN PRN Reason: Heparin Piperacillin Sod/Tazobactam (Sod 4.5 gm/ Dextrose) 100 mls @ 200 mls/hr IVPB Q8H-IV JUDY; Protocol Last Admin: 03/22/18 17:09 Dose: 200 mls/hr Vancomycin HCl 1,250 mg/ (Dextrose) 250 mls @ 250 mls/2 hr IVPB Q24H JUDY; Protocol Last Admin: 03/22/18 15:47 Dose: 250 mls/2 hr Meropenem 1 gm/ Dextrose 100 mls @ 200 mls/hr IVPB Q8H-IV JUDY Last Admin: 03/22/18 17:09 Dose: 200 mls/hr Norepinephrine Bitartrate 8, (000 mcg/ Dextrose) 500 mls @ 18.75 mls/hr IV TITR JUDY; Protocol Last Admin: 03/21/18 21:51 Dose: Not Given HEPARIN SOD,PORK IN 0.45% NACL (Heparin-1/2ns 25,000 Units/500) 25,000 units in 500 mls @ 20 mls/hr IVPB TITR JUDY; Protocol Last Admin: 03/22/18 15:46 Dose: 1,100 units/hr, 22 mls/hr Midazolam HCl (Versed -) 2 mg IVPUSH Q2H PRN PRN Reason: AGITATION Last Admin: 03/22/18 03:28 Dose: 2 mg Ondansetron HCl (Zofran Injection) 4 mg IVPUSH Q6H PRN PRN Reason: NAUSEA Pantoprazole Sodium (Protonix Iv) 40 mg IVPUSH DAILY JUDY Last Admin: 03/22/18 10:10 Dose: 40 mg Vital Signs - 24 hr 03/21/18 03/21/18 03/22/18 22:00 23:51 00:00 Temperature 99.7 F H Pulse Rate 87 98 H Respiratory 18 22 21 Rate Blood Pressure 134/62 137/62 O2 Sat by Pulse 95 Oximetry (%) 03/22/18 03/22/18 03/22/18 02:00 02:39 03:00 Temperature 98.2 F 100.3 F H Pulse Rate 102 H 94 H Respiratory 23 19 20 Rate Blood Pressure 143/58 144/57 O2 Sat by Pulse Oximetry (%) 03/22/18 03/22/18 03/22/18 04:00 06:00 06:08 Temperature 100.1 F H Pulse Rate 93 H 94 H Respiratory 16 14 14 Rate Blood Pressure 123/58 132/54 O2 Sat by Pulse Oximetry (%) 03/22/18 03/22/18 03/22/18 07:00 08:00 09:00 Temperature Pulse Rate 95 H 91 H Respiratory 23 23 Rate Blood Pressure 139/61 136/64 O2 Sat by Pulse 97 97 Oximetry (%) 03/22/18 03/22/18 03/22/18 09:40 10:00 12:00 Temperature 99.5 F Pulse Rate 96 H 98 H Respiratory 21 21 23 Rate Blood Pressure 147/59 154/76 O2 Sat by Pulse 95 Oximetry (%) 03/22/18 03/22/18 03/22/18 12:16 13:58 14:30 Temperature 99.7 F H Pulse Rate 114 H Respiratory 22 21 19 Rate Blood Pressure 151/83 O2 Sat by Pulse Oximetry (%) 03/22/18 03/22/18 03/22/18 15:00 16:00 16:10 Temperature Pulse Rate 112 H Respiratory 22 23 Rate Blood Pressure 145/76 O2 Sat by Pulse 96 Oximetry (%) 03/22/18 03/22/18 03/22/18 18:00 18:26 20:00 Temperature 98.8 F 98.7 F Pulse Rate 102 H 85 Respiratory 21 17 20 Rate Blood Pressure 139/70 159/76 O2 Sat by Pulse Oximetry (%) 03/22/18 03/22/18 20:44 20:48 Temperature Pulse Rate Respiratory 14 Rate Blood Pressure O2 Sat by Pulse 96 96 Oximetry (%) Intake & Output 03/20/18 03/21/18 03/22/18 03/23/18 07:59 07:59 07:59 07:59 Intake Total 766 1577.4 1780 1634 Output Total 3900 1790 2420 2315 Balance -3134 -212.6 -640 -681 Weight 190 lb 14.4 oz 191 lb 1.6 oz 192 lb 8 oz nad no jvd minimally responsive, intubated irreg, s1s2 no mrg cta bl anteriorly, mechanical breath sounds. 1+ le edema bl, no c/c pos dp pt no jaundice diaphoresis abd nd pos bs CBC, BMP 03/22/18 05:30 03/22/18 05:30 tele: rate controlled afib ecg: sr, nl intervals, no ischemic changes echo 02/2018: nl lv/rv, mild mr/tr/ar cxr: chf, slightly improved a/p: 82 m hx gerd, bph, here with abd pain/sepsis - found to have sbo, now s/p OR hospital course c/b new afib. septic shock: -remains intubated, but now off levophed. bp stable. cont abx per ID - s/p IV lasix 03/21, con't again today pafib: -new onset here -rate controlled w/o meds -echo unremarkable -chadsvasc warrants ac. on hep gtt -cont tele, lyte repletion prn. sbo: -s/p surgery 03/13 -also with gall stones and s/p IR drain 03/20
[2018-03-22] MEDS: CHLORHEXIDINE GLUCONATE 4% CLEANSER FOR DECOLONIZATION TP SCH (21:28)
[2018-03-23] MEDS ORDERED: DEXTROSE 5%-WATER 100 ML IVPB ONE (02:41)
[2018-03-23] MEDS ORDERED: PIPERACILLIN/TAZOBACTAM 4.5 GM VIAL IVPB ONE (02:41)
[2018-03-23] MEDS ORDERED: PT OWN MED DRAWER 7, Y5N ONE ×5 (02:41→16:58)
[2018-03-23] MEDS: MEROPENEM 1 GM in DEXTROSE 5%-WATER 100 ML IVPB SCH ×3 (02:46→17:01)
[2018-03-23] MEDS: NOREPINEPHRINE BITARTRATE 8,000 MCG in DEXTROSE 5%-WATER - 492 ML IV SCH (02:46)
[2018-03-23] MEDS: PIPERACILLIN/TAZOB 4.5 GM 4.5 GM in DEXTROSE 5%-WATER 100 ML IVPB SCH (02:46)
[2018-03-23 06:44] LABS: BASO % 0.3 % (0-2.0); EOS % 0.3 % (0-4.5); HEMATOCRIT 40.7 % (35.4-49); HEMOGLOBIN 13.7 GM/dL (11.7-16.9); MCH 30.4 pg (25.7-33.7); MCHC 33.5 g/dl (32.0-35.9); MEAN CELL VOLUME 90.8 fl (80-96); MEAN PLT VOLUME 9.7 fl (7.5-11.1); MONO % 5.7 % (3.8-10.2); NEUT % 87.7 % (42.8-82.8); PLATELET COUNT 311 K/MM3 (134-434); RBC 4.48 M/mm3 (4.00-5.60); WHITE BLOOD COUNT 18.9 K/mm3 (4.0-10.0)
[2018-03-23 07:10] LABS: ALBUMIN 1.2 g/dl (3.4-5.0); ANION GAP 5 (8-16); BLOOD UREA NITROGEN 31 mg/dL (7-18); CHLORIDE 96 mmol/L (98-107); CO2 37 mmol/L (21-32); SODIUM 138 mmol/L (136-145)
[2018-03-23 07:16] LABS: ALK PHOS 129 U/L (45-117); BILIRUBIN,TOTAL 3.7 mg/dL (0.2-1.0); CREATININE 0.7 mg/dL (0.7-1.3); PHOSPHOROUS 1.5 mg/dL (2.5-4.9); SGOT/AST 121 U/L (15-37); SGPT/ALT 105 U/L (12-78)
--- NOTE | 2018-03-23 07:17 | PN ---
Progress Note (short form) - Note Progress Note: intubated/sedated Current Medications Generic Name Dose Route Start Last Admin Trade Name Freq PRN Reason Stop Dose Admin Acetaminophen 1,000 mg 03/17/18 18:49 03/22/18 17:09 Ofirmev Injection - IVPB 1,000 mg Q6H PRN Administration FEVER Chlorhexidine Gluconate 15 ml 03/13/18 10:00 03/22/18 21:28 Peridex - MM 15 ml BID JUDY Administration Chlorhexidine Gluconate 1 applic 03/13/18 22:00 03/22/18 21:28 Hibiclens For Decolonization - TP 1 applic HS JUDY Administration Heparin Sodium (Porcine) 1,000 unit 03/20/18 14:07 03/22/18 08:17 Heparin - IVPUSH 1,000 unit PRN PRN Administration Heparin Heparin Sodium (Porcine) 5,000 unit 03/20/18 14:07 Heparin - IVPUSH PRN PRN Heparin Piperacillin Sod/Tazobactam 100 mls @ 200 mls/hr 03/17/18 18:00 03/23/18 02: 46 Sod 4.5 gm/ Dextrose IVPB 200 mls/hr Q8H-IV JUDY Administration Protocol Vancomycin HCl 1,250 mg/ 250 mls @ 250 mls/2 hr 03/17/18 16:00 03/22/18 15:47 Dextrose IVPB 250 mls/2 hr Q24H JUDY Administration Protocol Meropenem 1 gm/ Dextrose 100 mls @ 200 mls/hr 03/19/18 18:00 03/23/18 02:46 IVPB 200 mls/hr Q8H-IV JUDY Administration Norepinephrine Bitartrate 8, 500 mls @ 18.75 mls/hr 03/19/18 21:30 03/23/18 02:46 000 mcg/ Dextrose IV Not Given TITR JUDY Protocol 5 MCG/MIN HEPARIN SOD,PORK IN 0.45% NACL 25,000 units in 500 mls @ 20 mls/hr 03/20/18 14 :15 03/22/18 15:46 Heparin-1/2ns 25,000 Units/500 IVPB 1,100 units/hr TITR JUDY 22 mls/hr Administration Protocol 1,000 UNITS/HR Midazolam HCl 2 mg 03/21/18 12:20 05/27/18 03:28 Versed - IVPUSH 2 mg Q2H PRN Administration AGITATION Ondansetron HCl 4 mg 03/13/18 04:30 Zofran Injection IVPUSH Q6H PRN NAUSEA Pantoprazole Sodium 40 mg 03/13/18 10:00 03/22/18 10:10 Protonix Iv IVPUSH 40 mg DAILY JUDY Administration Last Vital Signs Temp Pulse Resp BP Pulse Ox 99.3 F 96 H 18 154/85 96 03/23/18 06:00 03/23/18 06:00 03/23/18 06:00 03/23/18 06:00 03/23/18 02:00 Intake & Output 03/20/18 03/21/18 03/22/18 03/23/18 23:59 23:59 23:59 23:59 Intake Total 1590.4 1963 2144 753 Output Total 1440 2850 4135 1120 Balance 150.4 -887 -1991 -367 Weight 190 lb 14.4 oz 191 lb 1.6 oz 192 lb 8 oz 188 lb 8 oz General resting comfortable, opens eyes to tactile stimuli CV S1 s2 irregular Lungs CTA anteriorly Abdomen soft distended midline surgical incision with good approximation panda in place. hypoactive BS. RUQ LEIF drain Extremities no pedal edema CBCD WBC 18.9 K/mm3 (4.0-10.0) H 03/23/18 05:20 RBC 4.48 M/mm3 (4.00-5.60) 03/23/18 05:20 Hgb 13.7 GM/dL (11.7-16.9) 03/23/18 05:20 Hct 40.7 % (35.4-49) 03/23/18 05:20 MCV 90.8 fl (80-96) 03/23/18 05:20 MCHC 33.5 g/dl (32.0-35.9) 03/23/18 05:20 RDW 14.0 % (11.9-15.9) 03/23/18 05:20 Plt Count 311 K/MM3 (134-434) 03/23/18 05:20 MPV 9.7 fl (7.5-11.1) 03/23/18 05:20 CMP Sodium 138 mmol/L (136-145) 03/23/18 05:20 Potassium 4.0 mmol/L (3.5-5.1) 03/23/18 05:20 Chloride 96 mmol/L (98-107) L 03/23/18 05:20 Carbon Dioxide 37 mmol/L (21-32) H 03/23/18 05:20 Anion Gap 5 (8-16) L 03/23/18 05:20 BUN 31 mg/dL (7-18) H 03/23/18 05:20 Creatinine 0.7 mg/dL (0.7-1.3) 03/23/18 05:20 Creat Clearance w eGFR > 60 (>60) 03/23/18 05:20 Calcium 6.8 mg/dL (8.5-10.1) L* 03/23/18 05:20 Total Bilirubin 3.7 mg/dL (0.2-1.0) H 03/23/18 05:20 AST 121 U/L (15-37) H 03/23/18 05:20 ALT 105 U/L (12-78) H 03/23/18 05:20 Alkaline Phosphatase 129 U/L (45-117) H 03/23/18 05:20 Total Protein 5.0 g/dl (6.4-8.2) L 03/23/18 05:20 Albumin 1.2 g/dl (3.4-5.0) L 03/23/18 05:20 Microbiology 03/20/18 11:15 Peritoneal Fluid Gram Stain - Final 03/20/18 11:15 Peritoneal Fluid Body Fluid Culture - Final NO GROWTH OF AEROBIC ORGANISMS AFTER 48 HOURS INCUBATION 03/20/18 11:15 Peritoneal Fluid Anaerobic Culture - Final NO ANAEROBES WERE ISOLATED 03/20/18 11:15 Peritoneal Fluid LAN Preparation - Preliminary 03/20/18 11:15 Peritoneal Fluid Fungal Culture - Preliminary 03/15/18 11:40 Blood - Central Line Blood Culture - Final NO GROWTH AFTER 5 DAYS INCUBATION 03/15/18 11:30 Blood - Central Line Blood Culture - Final NO GROWTH AFTER 5 DAYS INCUBATION 03/15/18 11:14 Blood - Peripheral Venous Blood Culture - Final NO GROWTH AFTER 5 DAYS INCUBATION 03/15/18 11:14 Blood - Peripheral Venous Blood Culture - Final NO GROWTH AFTER 5 DAYS INCUBATION 03/15/18 11:00 Sputum - Endotrachea Suction/Ventilator Gram Stain - Final 03/15/18 11:00 Sputum - Endotrachea Suction/Ventilator Sputum Culture - Final Klebsiella Oxytoca Serratia Marcescens Enterococcus Faecalis 03/16/18 16:00 Urine - Urine Scott Urine Culture - Final NO GROWTH OBTAINED 03/12/18 14:51 Blood - Peripheral Venous Blood Culture - Final NO GROWTH AFTER 5 DAYS INCUBATION 03/12/18 14:51 Blood - Peripheral Venous Blood Culture - Final NO GROWTH AFTER 5 DAYS INCUBATION 03/13/18 02:25 Peritoneal Fluid Gram Stain - Final 03/13/18 02:25 Peritoneal Fluid Body Fluid Culture - Final NO GROWTH OF AEROBIC ORGANISMS AFTER 48 HOURS INCUBATION 03/13/18 02:25 Peritoneal Fluid Anaerobic Culture - Final NO ANAEROBES WERE ISOLATED 03/12/18 22:12 Urine For Antigen Detection Legionella Antigen - Final 03/12/18 22:12 Urine For Antigen Detection Streptococcus pneumoniae Antigen (M - Final ASSESSMENT AND PLAN: 82 year old man with a history of DDD, GERD, diverticulosis, BPH who presented to the ED with abdominal pain and vomiting. 1. Acute hypoxic respiratory failure secondary to sepsis, aspiration pneumonia, ARDS - still on full vent support. cont intermittent diuresis as needed. daily cpap trials, sedation vacation. further vent management per ICU team. 2. Septic shock due to aspiration PNA-afebrile 24H. persistent leukocytosis. no other source at this time. been off pressors >24H. on Meropenem/vanco/Zosyn. check vanco level. will d/c zosyn today due to uptrending lft. s/p cholostomy tube draining bile. f/u peritoneal fluid. no vegetations seen on echo 3. Atrial fibrillation/flutter- remains in aflutter presently. rate controlled. on heparin ggt. echo reviewed. cardio on board 4. SBO with infarcted bowel- s/p exploratory laparotomy, segmental terminal ileum resection with primary anastomosis 03/13. tolerated Tube feeds. 5. Possible acalculous cholecystitis- s/p percutaneous drainage by IR 03/20. draining bile. does not appear infected. low output 6. Acute kidney injury - Resolved 7. Hypoalbuminemia 8. Pseudohypocalcemia- Corrected calcium is 9.22 9. Hypophosphatemia-kphos IV 10. Hepatic transaminitis- total bili increased due to hypotension. trended up. persisting and slow uptrend. will d/c zosyn. and monitor for improvement. 11. Stress ulcer prophylaxis- Continue Protonix 12. DVT/GI prophylaxis- On heparin ggt/protonix The care of this patient involved high complexity decision making to prevent further life threatening deterioration of the patient's condition and/or to evaluate & treat vital organ system(s) failure or risk of failure. Critical care time spent in reviewing chart, evaluating patient and formulating plan - 39 minutes. Visit type - Emergency Visit Emergency Visit: Yes ED Registration Date: 03/12/18 Care time: The patient presented to the Emergency Department on the above date and was hospitalized for further evaluation of their emergent condition. - New Patient This patient is new to me today: No - Critical Care Critical Care patient: Yes Total Critical Care Time (in minutes): 39 Critical Care Statement: The care of this patient involved high complexity decision making to prevent further life threatening deterioration of the patient 's condition and/or to evaluate & treat vital organ system(s) failure or risk of failure. - Discharge Referral Referred to [facility] No
[2018-03-23 07:29] LABS: CALCIUM 6.8 mg/dL (8.5-10.1); GLUCOSE,RANDOM 361 mg/dL (74-106)
[2018-03-23 07:35] LABS: ARTERIAL BLD GAS O2 SATURATION 98.8 % (90-98.9); ARTERIAL BLOOD GAS BASE EXCESS 10.1 meq/l (-2-2); ARTERIAL BLOOD GAS PCO2 46.4 mmHg (35-45); ARTERIAL BLOOD GAS pH 7.49 (7.35-7.45)
[2018-03-23 07:45] LABS: ALLENS TEST POSITIVE
[2018-03-23] MEDS ORDERED: POTASSIUM PHOSPHATE 30 MM in DEXTROSE 5%-WATER - 250 ML IVPB ONE (08:04)
[2018-03-23] MEDS ORDERED: INSULIN REGULAR HUMAN 100 UNITS/ML *VIAL IVPUSH ONE (08:55)
[2018-03-23] MEDS ORDERED: INSULIN (NOVOLOG) ASPART 100 UNITS/ML 10ML VIAL SQ ONE (09:05)
--- NOTE | 2018-03-23 09:09 | PN ---
Progress Note (short form) - Note Progress Note: PULMONARY/CCM Pt seen and examined in the ICU. 24Hr: -Gas exchange improving -Taking good TV on PS 10-12 -slowly waking up -CXR with persistent airspace disease -low grade temp but remains off levo Vital Signs Temp 99.3 F 03/23/18 06:00 Pulse 86 03/23/18 08:00 Resp 19 03/23/18 08:00 BP 138/76 03/23/18 08:00 Pulse Ox 97 03/23/18 08:00 Intake & Output 03/22/18 03/22/18 03/23/18 11:59 23:59 11:59 Intake Total 140 2004 753 Output Total 320 3815 1120 Balance -180 -1811 -367 Weight 87.317 kg 85.502 kg Intake: IV 140 370 154 HEPARIN-1/2NS 25,000 140 370 154 UNITS/500 25,000 units In 500 ml @ 1,000 UNITS/HR 20 mls/hr IVPB TITR JUDY Rx#:[id number] IVPB 750 235 Tube Feeding 714 294 Tube Irrigant 170 70 Output: Drainage 20 15 20 Right Upper Abdomen 20 15 20 Urine 300 3800 1100 Scott 300 3800 1100 Other: Voiding Method Indwelling Catheter Indwelling Catheter Weight Measurement Method Built in [facility] Built in [facility] Gen: intubated, awakens to noxious stimuli, not following Heart: RRR Lung: scattered rhonchi, improved air movement Abd: soft, dressings intact, bilious output to slim drain Ext: trace edema Active Medications Acetaminophen (Ofirmev Injection -) 1,000 mg IVPB Q6H PRN PRN Reason: FEVER Last Admin: 03/21/18 02:26 Dose: 1,000 mg Chlorhexidine Gluconate (Peridex -) 15 ml MM BID [facility] Last Admin: 03/21/18 21:51 Dose: 15 ml Chlorhexidine Gluconate (Hibiclens For Decolonization -) 1 applic TP HS [facility] Last Admin: 03/21/18 21:51 Dose: 1 applic Fentanyl (Sublimaze Injection -) 100 mcg IVPUSH ONCE PRN PRN Reason: PAIN Stop: 03/22/18 12:19 Last Admin: 03/22/18 04:40 Dose: 100 mcg Heparin Sodium (Porcine) (Heparin -) 1,000 unit IVPUSH PRN PRN PRN Reason: Heparin Last Admin: 03/22/18 08:17 Dose: 1,000 unit Heparin Sodium (Porcine) (Heparin -) 5,000 unit IVPUSH PRN PRN PRN Reason: Heparin Piperacillin Sod/Tazobactam (Sod 4.5 gm/ Dextrose) 100 mls @ 200 mls/hr IVPB Q8H-IV JUDY; Protocol Last Admin: 03/22/18 02:49 Dose: 200 mls/hr Vancomycin HCl 1,250 mg/ (Dextrose) 250 mls @ 250 mls/2 hr IVPB Q24H JUDY; Protocol Last Admin: 03/21/18 16:18 Dose: 250 mls/2 hr Meropenem 1 gm/ Dextrose 100 mls @ 200 mls/hr IVPB Q8H-IV JUDY Last Admin: 03/22/18 02:49 Dose: 200 mls/hr Norepinephrine Bitartrate 8, (000 mcg/ Dextrose) 500 mls @ 18.75 mls/hr IV TITR JUDY; Protocol Last Admin: 03/21/18 21:51 Dose: Not Given HEPARIN SOD,PORK IN 0.45% NACL (Heparin-1/2ns 25,000 Units/500) 25,000 units in 500 mls @ 20 mls/hr IVPB TITR JUDY; Protocol Last Titration: 03/22/18 08:14 Dose: 1,100 units/hr, 22 mls/hr Potassium Phosphate 30 mm/ (Sodium Chloride) 260 mls @ 62.5 mls/hr IVPB ONCE ONE Stop: 03/22/18 14:09 Midazolam HCl (Versed -) 2 mg IVPUSH Q2H PRN PRN Reason: AGITATION Last Admin: 03/22/18 03:28 Dose: 2 mg Ondansetron HCl (Zofran Injection) 4 mg IVPUSH Q6H PRN PRN Reason: NAUSEA Pantoprazole Sodium (Protonix Iv) 40 mg IVPUSH DAILY JUDY Last Admin: 03/21/18 09:37 Dose: 40 mg A/P Acute Hypoxic Respiratory Failure Pneumonia - ?Aspiration ARDS Incarcerated Inguinal Hernia s/p ex-lap/segmental terminal ileum resection/primary anastamosis 03/13 r/o Acalculus Cholecystitis s/p percutaneous cholecystostomy Septic Shock resolving Acute Kidney Injury improving Lactic Acidosis resolved New onset Paroxysmal Atrial Fibrillation Diverticulosis BPH - continue antibiotics as per ID - f/u cultures - rate controlled - continue anticoagulation - lasix for O>I as long as Cr not bumping - monitor urine output, creatinine - low tidal volume ventilation - keep Pplat <30 - taper FiO2, PEEP to keep SpO2 >90% - enteral feeds - DVT/GI prophylaxis - continue ICU monitoring Svetlana GARCIAP [id number] 35min CCT
[2018-03-23] MEDS: CHLORHEXIDINE GLUCONATE 0.12% 15ML CUP MM SCH ×2 (09:11→21:15)
[2018-03-23] MEDS: PANTOPRAZOLE SODIUM 40 MG VIAL IVPUSH SCH (09:12)
--- NOTE | 2018-03-23 11:10 | PN ---
Progress Note, Physician Chief Complaint: SBO History of Present Illness: 82 yo male PMH BPH, degernerative disc disease (cervical), diverticulosis, hemorrhoids presented to the ED with abdominal pain and vomiting for on day. He reports that he was weight training yesterday and developed some groin pain. He remains sedated and intubated in the ICU post op given poor saturation preop. He was weaned from vasopressors. - Current Medication List Current Medications: Active Medications Acetaminophen (Ofirmev Injection -) 1,000 mg IVPB Q6H PRN PRN Reason: FEVER Last Admin: 03/22/18 17:09 Dose: 1,000 mg Chlorhexidine Gluconate (Peridex -) 15 ml MM BID JUDY Last Admin: 03/23/18 09:11 Dose: 15 ml Chlorhexidine Gluconate (Hibiclens For Decolonization -) 1 applic TP HS JUDY Last Admin: 03/22/18 21:28 Dose: 1 applic Heparin Sodium (Porcine) (Heparin -) 1,000 unit IVPUSH PRN PRN PRN Reason: Heparin Last Admin: 03/22/18 08:17 Dose: 1,000 unit Heparin Sodium (Porcine) (Heparin -) 5,000 unit IVPUSH PRN PRN PRN Reason: Heparin Vancomycin HCl 1,250 mg/ (Dextrose) 250 mls @ 250 mls/2 hr IVPB Q24H JUDY; Protocol Last Admin: 03/22/18 15:47 Dose: 250 mls/2 hr Meropenem 1 gm/ Dextrose 100 mls @ 200 mls/hr IVPB Q8H-IV JUDY Last Admin: 03/23/18 09:53 Dose: 200 mls/hr HEPARIN SOD,PORK IN 0.45% NACL (Heparin-1/2ns 25,000 Units/500) 25,000 units in 500 mls @ 20 mls/hr IVPB TITR JUDY; Protocol Last Admin: 03/22/18 15:46 Dose: 1,100 units/hr, 22 mls/hr Potassium Phosphate 30 mm/ (Dextrose) 260 mls @ 62.5 mls/hr IVPB ONCE ONE Stop: 03/23/18 12:13 Last Admin: 03/23/18 09:53 Dose: 62.5 mls/hr Insulin Aspart (Novolog Vial Sliding Scale -) 1 vial SQ ACHS JUDY; Protocol Midazolam HCl (Versed -) 2 mg IVPUSH Q2H PRN PRN Reason: AGITATION Last Admin: 03/22/18 03:28 Dose: 2 mg Ondansetron HCl (Zofran Injection) 4 mg IVPUSH Q6H PRN PRN Reason: NAUSEA Pantoprazole Sodium (Protonix Iv) 40 mg IVPUSH DAILY [facility] Last Admin: 03/23/18 09:12 Dose: 40 mg - Objective Vital Signs: Vital Signs Temperature 99.2 F 03/23/18 10:00 Pulse Rate 95 H 03/23/18 11:05 Respiratory Rate 24 03/23/18 11:05 Blood Pressure 141/78 03/23/18 11:05 O2 Sat by Pulse Oximetry (%) 95 03/23/18 11:03 Vital Signs Period Temp Pulse Resp BP Sys/Ceballos Pulse Ox Last 24 Hr 98.5 F-99.7 F 83-114 12-30 138-167/66-85 95-97 Intake & Output 03/22/18 03/23/18 03/23/18 23:59 07:59 15:59 Intake Total 2003 753 Output Total 1515 1120 Balance 489 -367 Weight 188 lb 8 oz Intake: IV 370 154 HEPARIN-1/2NS 25,000 370 154 UNITS/500 25,000 units In 500 ml @ 1,000 UNITS/HR 20 mls/hr IVPB TITR [facility] Rx#:[id number] IVPB 750 235 Tube Feeding 714 294 Tube Irrigant 170 70 Output: Drainage 15 20 Right Upper Abdomen 15 20 Urine 1500 1100 Quintero 1500 1100 Other: Voiding Method Indwelling Catheter Weight Measurement Method Built in [facility] Constitutional: Yes: Well Nourished, No Distress, Calm Eyes: Yes: Conjunctiva Clear, EOM Intact HENT: Yes: Atraumatic, Normocephalic Neck: Yes: Supple, Trachea Midline Cardiovascular: Yes: Regular Rate and Rhythm, S1, S2 Respiratory: Yes: Regular, Diminished, Mechanically Ventilated Gastrointestinal: Yes: Normal Bowel Sounds, Soft. No: Tenderness, Tenderness, Epigastrium, Tenderness, Rebound Genitourinary: Yes: Quintero Present. No: CVA Tenderness - Left, CVA Tenderness - Right Extremities: No: Cool, Cyanosis Edema: Yes Edema: LUE: 1+, RUE: 1+, LLE: 1+, RLE: 1+ Peripheral Pulses WNL: Yes Peripheral Pulses: Left Radial: 2+, Right Radial: 2+, Left Doralis Pedis: 2+, Right Dorsalis Pedis: 2+ Wound/Incision: Yes: Well Approximated, Albino Intact Labs: CBC, BMP 03/23/18 05:20 03/23/18 05:20 INR, PTT INR 1.39 (0.82-1.09) H 03/20/18 05:55 - ....Imaging Chest X-ray: Report Reviewed, Image Reviewed Problem List - Problems (1) Strangulated inguinal hernia Assessment/Plan: 82yo male MMP relatively healthy with SBO abdominal pain non reducible LIH, unclear transition point and no clear bowel ischemia identified. Bibasilar pulmonary consolidation and hoarsness may be a sequela of an aspiration. POD#9 s /p Exploratory Laparotomy, segmental ressection of SB and primary stapled anastomosis for strangulated RIH. low grade fevers persists, pneumonia PF Ratio 300. Patient has soft bowel movements. CT scan showed worsening consolidation of the lower lobes, SB anastomosis is intact, obstruction is relieved. S/p percutaneous cholecystostomy in IR. ICU management continue quintero for I&O NGT feeds to goal for IBW IV antibiotics per ID GI and DVT prophylaxsis will follow This patient is critically ill. Time spent reviewing chart, examining patient, talking with providers and/or family and documentation is 45 minutes Code(s): K40.30 - UNIL INGUINAL HERNIA, W OBST, W/O GANGR, NOT SPCF RECUR (2) Incarcerated left inguinal hernia Code(s): K40.30 - UNIL INGUINAL HERNIA, W OBST, W/O GANGR, NOT SPCF RECUR (3) BPH (benign prostatic hyperplasia) Code(s): N40.0 - BENIGN PROSTATIC HYPERPLASIA WITHOUT LOWER URINRY TRACT SYMP Qualifiers: Qualified Code(s): N40.1 - Benign prostatic hyperplasia with lower urinary tract symptoms; R35.0 - Frequency of micturition (4) DDD (degenerative disc disease), cervical Code(s): M50.30 - OTHER CERVICAL DISC DEGENERATION, UNSP CERVICAL REGION (5) SBO (small bowel obstruction) Code(s): K56.609 - UNSP INTESTNL OBST, UNSP TO PARTIAL VERSUS COMPLETE OBST (6) Aspiration pneumonia of both lower lobes due to gastric secretions Code(s): J69.0 - PNEUMONITIS DUE TO INHALATION OF FOOD AND VOMIT
--- NOTE | 2018-03-23 12:56 | PN ---
Progress Note, Physician History of Present Illness: stable still intubated more responsive afebrile for 24 hours now - Current Medication List Current Medications: Active Medications Acetaminophen (Ofirmev Injection -) 1,000 mg IVPB Q6H PRN PRN Reason: FEVER Last Admin: 03/22/18 17:09 Dose: 1,000 mg Chlorhexidine Gluconate (Peridex -) 15 ml MM BID [facility] Last Admin: 03/23/18 09:11 Dose: 15 ml Chlorhexidine Gluconate (Hibiclens For Decolonization -) 1 applic TP HS [facility]Y Last Admin: 03/22/18 21:28 Dose: 1 applic Fentanyl (Sublimaze Injection -) 50 mcg IVPUSH Q2H PRN PRN Reason: PAIN Stop: 03/24/18 11:29 Heparin Sodium (Porcine) (Heparin -) 1,000 unit IVPUSH PRN PRN PRN Reason: Heparin Last Admin: 03/22/18 08:17 Dose: 1,000 unit Heparin Sodium (Porcine) (Heparin -) 5,000 unit IVPUSH PRN PRN PRN Reason: Heparin Vancomycin HCl 1,250 mg/ (Dextrose) 250 mls @ 250 mls/2 hr IVPB Q24H JUDY; Protocol Last Admin: 03/22/18 15:47 Dose: 250 mls/2 hr Meropenem 1 gm/ Dextrose 100 mls @ 200 mls/hr IVPB Q8H-IV [facility]Y Last Admin: 03/23/18 09:53 Dose: 200 mls/hr HEPARIN SOD,PORK IN 0.45% NACL (Heparin-1/2ns 25,000 Units/500) 25,000 units in 500 mls @ 20 mls/hr IVPB TITR JUDY; Protocol Last Admin: 03/22/18 15:46 Dose: 1,100 units/hr, 22 mls/hr Insulin Aspart (Novolog Vial Sliding Scale -) 1 vial SQ ACHS [facility]; Protocol Midazolam HCl (Versed -) 2 mg IVPUSH Q2H PRN PRN Reason: AGITATION Last Admin: 03/22/18 03:28 Dose: 2 mg Ondansetron HCl (Zofran Injection) 4 mg IVPUSH Q6H PRN PRN Reason: NAUSEA Pantoprazole Sodium (Protonix Iv) 40 mg IVPUSH DAILY [facility] Last Admin: 05/28/18 09:12 Dose: 40 mg - Objective Vital Signs: Vital Signs Temperature 99.2 F 03/23/18 10:00 Pulse Rate 95 H 03/23/18 11:05 Respiratory Rate 21 03/23/18 11:38 Blood Pressure 141/78 03/23/18 11:05 O2 Sat by Pulse Oximetry (%) 95 03/23/18 11:03 Constitutional: Yes: Other Cardiovascular: Yes: Tachycardia, S1, S2 Respiratory: Yes: Intubated, Mechanically Ventilated Gastrointestinal: Yes: Normal Bowel Sounds, Soft Musculoskeletal: Yes: WNL Extremities: Yes: WNL Neurological: Yes: Other Psychiatric: Yes: Other Labs: CBC, BMP 03/23/18 05:20 03/23/18 05:20 INR, PTT INR 1.39 (0.82-1.09) H 03/20/18 05:55 Assessment/Plan Problem List - Problems (1) Strangulated inguinal hernia Pulmonary evaluation - weaning today? GI Evaluation - Tbili 3.5, 3.6 BP goal MAP 65-70, has a stapled small bowel anastomosis avoid lwo flow states will follow Code(s): K40.30 - UNIL INGUINAL HERNIA, W OBST, W/O GANGR, NOT SPCF RECUR (2) Incarcerated left inguinal hernia Code(s): K40.30 - UNIL INGUINAL HERNIA, W OBST, W/O GANGR, NOT SPCF RECUR (3) BPH (benign prostatic hyperplasia) Code(s): N40.0 - BENIGN PROSTATIC HYPERPLASIA WITHOUT LOWER URINRY TRACT SYMP Qualifiers: Lower urinary tract symptom presence: symptoms present Lower urinary tract symptom detail: urinary frequency Qualified Code(s): N40.1 - Benign prostatic hyperplasia with lower urinary tract symptoms; R35.0 - Frequency of micturition ; R35.0 - Frequency of micturition (4) DDD (degenerative disc disease), cervical Code(s): M50.30 - OTHER CERVICAL DISC DEGENERATION, UNSP CERVICAL REGION (5) SBO (small bowel obstruction) Code(s): K56.609 - UNSP INTESTNL OBST, UNSP TO PARTIAL VERSUS COMPLETE OBST (6) Aspiration pneumonia of both lower lobes due to gastric secretions Code(s): J69.0 - PNEUMONITIS DUE TO INHALATION OF FOOD AND VOMIT r/o acalculus choley plan continue abx monitor for fevers monitor vent setting rest as per icu patient improving await for cx reports from the bile aggressive chest pt continue suctioning improving cc 40 min
[2018-03-23] MEDS: INSULIN SLIDING SCALE (NOVOLOG) 1 VIAL SQ SCH ×3 (13:26→21:32)
[2018-03-23] MEDS: HEPARIN SOD,PORK IN 0.45% NACL 25,000 UNITS/500 ML INFUS.BAG IVPB SCH (16:49)
[2018-03-23] MEDS: ACETAMINOPHEN 1000 MG/100 ML VIAL (NON FORMULARY) IVPB PRN (16:52)
[2018-03-23] MEDS: VANCOMYCIN 1,250 MG in DEXTROSE 5%-WATER - 250 ML IVPB SCH (17:00)
--- NOTE | 2018-03-23 20:50 | PN ---
Progress Note (short form) - Note Progress Note: CC: new afib s: remains intubated, off sedation. off levophed. Current Medications Chlorhexidine Gluconate (Peridex -) 15 ml MM BID [facility] Last Admin: 03/23/18 09:11 Dose: 15 ml Chlorhexidine Gluconate (Hibiclens For Decolonization -) 1 applic TP HS [facility] Last Admin: 03/22/18 21:28 Dose: 1 applic Fentanyl (Sublimaze Injection -) 50 mcg IVPUSH Q2H PRN PRN Reason: PAIN Stop: 03/24/18 11:29 Last Admin: 03/23/18 13:39 Dose: 50 mcg Heparin Sodium (Porcine) (Heparin -) 1,000 unit IVPUSH PRN PRN PRN Reason: Heparin Last Admin: 03/22/18 08:17 Dose: 1,000 unit Heparin Sodium (Porcine) (Heparin -) 5,000 unit IVPUSH PRN PRN PRN Reason: Heparin Vancomycin HCl 1,250 mg/ (Dextrose) 250 mls @ 250 mls/2 hr IVPB Q24H [facility]; Protocol Last Admin: 03/23/18 17:00 Dose: 250 mls/2 hr Meropenem 1 gm/ Dextrose 100 mls @ 200 mls/hr IVPB Q8H-IV [facility] Last Admin: 03/23/18 17:01 Dose: 200 mls/hr HEPARIN SOD,PORK IN 0.45% NACL (Heparin-1/2ns 25,000 Units/500) 25,000 units in 500 mls @ 20 mls/hr IVPB TITR [facility]; Protocol Last Admin: 03/23/18 16:49 Dose: 1,100 units/hr, 22 mls/hr Insulin Aspart (Novolog Vial Sliding Scale -) 1 vial SQ ACHS [facility]; Protocol Last Admin: 03/23/18 18:18 Dose: 8 units Midazolam HCl (Versed -) 2 mg IVPUSH Q2H PRN PRN Reason: AGITATION Last Admin: 03/22/18 03:28 Dose: 2 mg Ondansetron HCl (Zofran Injection) 4 mg IVPUSH Q6H PRN PRN Reason: NAUSEA Pantoprazole Sodium (Protonix Iv) 40 mg IVPUSH DAILY [facility] Last Admin: 03/23/18 09:12 Dose: 40 mg Vital Signs - 24 hr 03/22/18 03/22/18 03/22/18 21:02 22:00 23:39 Temperature 98.8 F Pulse Rate 103 H Respiratory 14 18 16 Rate Blood Pressure 157/76 O2 Sat by Pulse Oximetry (%) 03/23/18 03/23/18 03/23/18 01:30 01:49 02:00 Temperature 98.5 F Pulse Rate 99 H Respiratory 16 12 12 Rate Blood Pressure 167/82 O2 Sat by Pulse 96 Oximetry (%) 03/23/18 03/23/18 03/23/18 03:30 04:25 06:00 Temperature 99.3 F Pulse Rate 105 H 96 H Respiratory 18 18 18 Rate Blood Pressure 150/79 154/85 O2 Sat by Pulse Oximetry (%) 03/23/18 03/23/18 03/23/18 07:20 08:00 08:15 Temperature Pulse Rate 86 Respiratory 20 19 22 Rate Blood Pressure 138/76 O2 Sat by Pulse 97 Oximetry (%) 03/23/18 03/23/18 03/23/18 08:20 09:00 09:23 Temperature 99.2 F Pulse Rate 90 83 Respiratory 21 30 H Rate Blood Pressure 155/66 O2 Sat by Pulse 97 96 Oximetry (%) 03/23/18 03/23/18 03/23/18 10:00 10:15 11:03 Temperature 99.2 F Pulse Rate 88 Respiratory 26 H 24 Rate Blood Pressure 145/79 O2 Sat by Pulse 95 95 Oximetry (%) 03/23/18 03/23/18 03/23/18 11:05 11:38 13:00 Temperature Pulse Rate 95 H 109 H Respiratory 24 21 27 H Rate Blood Pressure 141/78 134/70 O2 Sat by Pulse Oximetry (%) 03/23/18 03/23/18 03/23/18 13:48 14:07 16:00 Temperature 99.8 F H Pulse Rate 108 H 110 H Respiratory 26 H 25 H 23 Rate Blood Pressure 133/70 133/67 O2 Sat by Pulse Oximetry (%) 03/23/18 03/23/18 03/23/18 16:07 16:20 17:13 Temperature 99.8 F H Pulse Rate 100 H Respiratory 27 H 23 Rate Blood Pressure 116/61 O2 Sat by Pulse 94 L Oximetry (%) 03/23/18 03/23/18 18:36 20:21 Temperature Pulse Rate Respiratory 25 H Rate Blood Pressure O2 Sat by Pulse 94 L Oximetry (%) Intake & Output 03/21/18 03/22/18 03/23/18 03/24/18 07:59 07:59 07:59 07:59 Intake Total 1577.4 1780 2757 1688 Output Total 1790 2420 4935 1835 Balance -212.6 -640 -2178 -147 Weight 191 lb 1.6 oz 192 lb 8 oz 188 lb 8 oz nad no jvd minimally responsive, intubated irreg, s1s2 no mrg cta bl anteriorly, mechanical breath sounds. 1+ le edema bl, no c/c pos dp pt no jaundice diaphoresis abd nd pos bs CBC, BMP 03/23/18 05:20 03/23/18 05:20 tele: rate controlled afib ecg: sr, nl intervals, no ischemic changes echo 02/2018: nl lv/rv, mild mr/tr/ar cxr: chf, slightly improved a/p: 82 m hx gerd, bph, here with abd pain/sepsis - found to have sbo, now s/p OR hospital course c/b new afib. septic shock: -remains intubated, but now off levophed. bp stable. cont abx per ID - s/p IV lasix 03/21, 03/22. - net negative 4L today 03/23, cxr slightly improved. hold lasix today and reassess need again tomorrow. pafib: -new onset here -rate controlled w/o meds -echo unremarkable -chadsvasc warrants ac. on hep gtt -cont tele sbo: -s/p surgery 03/13 -also with gall stones and s/p IR drain 03/20
[2018-03-23] MEDS: CHLORHEXIDINE GLUCONATE 4% CLEANSER FOR DECOLONIZATION TP SCH (21:10)
[2018-03-24] MEDS ORDERED: PT OWN MED DRAWER 7, Y5N ONE ×3 (01:26→16:26)
[2018-03-24] MEDS: MEROPENEM 1 GM in DEXTROSE 5%-WATER 100 ML IVPB SCH ×3 (01:35→17:53)
[2018-03-24] MEDS: INSULIN SLIDING SCALE (NOVOLOG) 1 VIAL SQ SCH ×4 (06:32→22:26)
[2018-03-24 06:42] LABS: BASO % 0.5 % (0-2.0); EOS % 0.3 % (0-4.5); HEMATOCRIT 39.6 % (35.4-49); HEMOGLOBIN 13.2 GM/dL (11.7-16.9); LYMPH % 8.9 % (8-40); MCH 29.9 pg (25.7-33.7); MCHC 33.2 g/dl (32.0-35.9); MEAN PLT VOLUME 10.1 fl (7.5-11.1); MONO % 7.9 % (3.8-10.2); NEUT % 82.4 % (42.8-82.8); PLATELET COUNT 339 K/MM3 (134-434); RDW 14.3 % (11.9-15.9); WHITE BLOOD COUNT 19.8 K/mm3 (4.0-10.0)
[2018-03-24 06:45] LABS: ALBUMIN 1.1 g/dl (3.4-5.0); ANION GAP 4 (8-16); BLOOD UREA NITROGEN 34 mg/dL (7-18); CALCIUM 7.1 mg/dL (8.5-10.1); CHLORIDE 102 mmol/L (98-107); CO2 36 mmol/L (21-32); GLUCOSE,RANDOM 175 mg/dL (74-106); MAGNESIUM 2.1 mg/dL (1.8-2.4); SODIUM 142 mmol/L (136-145)
[2018-03-24 06:48] LABS: ALK PHOS 109 U/L (45-117); BILIRUBIN,TOTAL 4.7 mg/dL (0.2-1.0); CREATININE 0.6 mg/dL (0.7-1.3); PHOSPHOROUS 2.2 mg/dL (2.5-4.9); SGOT/AST 106 U/L (15-37); SGPT/ALT 99 U/L (12-78); TOT PROT 4.9 g/dl (6.4-8.2)
[2018-03-24] MEDS ORDERED: NAPH,MB-DB/K PH,MBDB POWDER PACKET PO ONE (07:12)
[2018-03-24] MEDS ORDERED: POTASSIUM PHOSPHATE 30 MM in DEXTROSE 5%-WATER - 250 ML IVPB ONE (09:05)
[2018-03-24] MEDS: PANTOPRAZOLE SODIUM 40 MG VIAL IVPUSH SCH (09:25)
[2018-03-24] MEDS: CHLORHEXIDINE GLUCONATE 0.12% 15ML CUP MM SCH ×2 (09:29→21:25)
[2018-03-24] MEDS ORDERED: morphine SULFATE 4 MG/ML VIAL IVPUSH PRN (10:57)
[2018-03-24] MEDS ORDERED: FUROSEMIDE 40 MG/4 ML INJECTABLE VIAL IVPUSH ONE (10:59)
--- NOTE | 2018-03-24 11:11 | PN ---
Teaching Attending Note Name of Resident: Luke Drake ATTENDING PHYSICIAN STATEMENT I saw and evaluated the patient. I reviewed the resident's note and discussed the case with the resident. I agree with the resident's findings and plan as documented. SUBJECTIVE: Pt seen and examined in the ICU. Remains intubated, more awake off sedation. Vented on volume assist control with 45% FiO2, PEEP 8. OBJECTIVE: Vital Signs Period Temp Pulse Resp BP Sys/Ceballos Pulse Ox Last 24 Hr 98.6 F-99.8 F 77-113 12-27 116-151/61-77 94-98 Intake & Output 03/21/18 03/22/18 03/23/18 03/24/18 23:59 23:59 23:59 23:59 Intake Total 1963 2144 2441 337 Output Total 4546 2504 3741 1075 [facility] -887 -1991 -1014 -738 Weight 86.682 kg 87.317 kg 85.502 kg 82.7 kg Gen: intubated, awake but not responsive Heart: RRR LungL: scattered rhonchi Abd: soft, nontender Ext: + edema CBC, BMP 03/24/18 05:35 03/24/18 05:35 Active Medications Artificial Tears (Artificial Tears) 1 drop OU BID PRN PRN Reason: DRY EYES Chlorhexidine Gluconate (Peridex -) 15 ml MM BID [facility] Last Admin: 03/24/18 09:29 Dose: 15 ml Chlorhexidine Gluconate (Hibiclens For Decolonization -) 1 applic TP HS [facility] Last Admin: 03/23/18 21:10 Dose: 1 applic Fentanyl (Sublimaze Injection -) 50 mcg IVPUSH Q2H PRN PRN Reason: PAIN Stop: 03/24/18 11:29 Last Admin: 03/23/18 13:39 Dose: 50 mcg Furosemide (Lasix Injection -) 40 mg IVPUSH ONCE ONE Stop: 03/24/18 11:00 Heparin Sodium (Porcine) (Heparin -) 1,000 unit IVPUSH PRN PRN PRN Reason: Heparin Last Admin: 03/22/18 08:17 Dose: 1,000 unit Heparin Sodium (Porcine) (Heparin -) 5,000 unit IVPUSH PRN PRN PRN Reason: Heparin Vancomycin HCl 1,250 mg/ (Dextrose) 250 mls @ 250 mls/2 hr IVPB Q24H [facility]; Protocol Last Admin: 03/23/18 17:00 Dose: 250 mls/2 hr Meropenem 1 gm/ Dextrose 100 mls @ 200 mls/hr IVPB Q8H-IV [facility] Last Admin: 03/24/18 09:29 Dose: 200 mls/hr HEPARIN SOD,PORK IN 0.45% NACL (Heparin-1/2ns 25,000 Units/500) 25,000 units in 500 mls @ 20 mls/hr IVPB TITR [facility]; Protocol Last Admin: 03/23/18 16:49 Dose: 1,100 units/hr, 22 mls/hr Potassium Phosphate 30 mm/ (Dextrose) 260 mls @ 62.5 mls/hr IVPB ONCE ONE Stop: 03/24/18 13:14 Insulin Aspart (Novolog Vial Sliding Scale -) 1 vial SQ ACHS [facility]; Protocol Last Admin: 03/24/18 06:32 Dose: Not Given Midazolam HCl (Versed -) 2 mg IVPUSH Q2H PRN PRN Reason: AGITATION Last Admin: 03/22/18 03:28 Dose: 2 mg Morphine Sulfate (Morphine Injection -) 3 mg IVPUSH Q2H PRN PRN Reason: PAIN LEVEL 1 - 3 Ondansetron HCl (Zofran Injection) 4 mg IVPUSH Q6H PRN PRN Reason: NAUSEA Pantoprazole Sodium (Protonix Iv) 40 mg IVPUSH DAILY [facility] Last Admin: 03/24/18 09:25 Dose: 40 mg ASSESSMENT AND PLAN: Acute Hypoxic Respiratory Failure Pneumonia - ?Aspiration ARDS Incarcerated Inguinal Hernia s/p ex-lap/segmental terminal ileum resection/primary anastamosis 03/13 r/o Acalculus Cholecystitis s/p percutaneous cholecystostomy Septic Shock resolving Acute Kidney Injury improving Lactic Acidosis resolved New onset Paroxysmal Atrial Fibrillation Diverticulosis BPH - continue antibiotics - rate controlled - continue anticoagulation - lasix again today - monitor urine output, creatinine - low tidal volume ventilation - keep Pplat <30 - taper FiO2, PEEP to keep SpO2 >90% - minimize sedation to assess mental status - spontaneous breathing trials as tolerated when mental status improved - enteral feeds - DVT/GI prophylaxis - continue ICU monitoring critical care time spent in reviewing chart, evaluating patient and formulating plan 35 min
--- NOTE | 2018-03-24 12:31 | PN ---
Progress Note, Physician Chief Complaint: SBO History of Present Illness: 82 yo male PMH BPH, degernerative disc disease (cervical), diverticulosis, hemorrhoids presented to the ED with abdominal pain and vomiting for on day. He reports that he was weight training yesterday and developed some groin pain. He remains sedated and intubated in the ICU post op given poor saturation preop. He was weaned from vasopressors. - Current Medication List Current Medications: Active Medications Artificial Tears (Artificial Tears) 1 drop OU BID PRN PRN Reason: DRY EYES Chlorhexidine Gluconate (Peridex -) 15 ml MM BID [facility] Last Admin: 03/24/18 09:29 Dose: 15 ml Chlorhexidine Gluconate (Hibiclens For Decolonization -) 1 applic TP HS [facility] Last Admin: 03/23/18 21:10 Dose: 1 applic Heparin Sodium (Porcine) (Heparin -) 1,000 unit IVPUSH PRN PRN PRN Reason: Heparin Last Admin: 03/22/18 08:17 Dose: 1,000 unit Heparin Sodium (Porcine) (Heparin -) 5,000 unit IVPUSH PRN PRN PRN Reason: Heparin Vancomycin HCl 1,250 mg/ (Dextrose) 250 mls @ 250 mls/2 hr IVPB Q24H [facility]; Protocol Last Admin: 03/23/18 17:00 Dose: 250 mls/2 hr Meropenem 1 gm/ Dextrose 100 mls @ 200 mls/hr IVPB Q8H-IV [facility] Last Admin: 03/24/18 09:29 Dose: 200 mls/hr HEPARIN SOD,PORK IN 0.45% NACL (Heparin-1/2ns 25,000 Units/500) 25,000 units in 500 mls @ 20 mls/hr IVPB TITR [facility]; Protocol Last Admin: 03/23/18 16:49 Dose: 1,100 units/hr, 22 mls/hr Potassium Phosphate 30 mm/ (Dextrose) 260 mls @ 62.5 mls/hr IVPB ONCE ONE Stop: 03/24/18 13:14 Last Admin: 03/24/18 11:25 Dose: 62.5 mls/hr Insulin Aspart (Novolog Vial Sliding Scale -) 1 vial SQ ACHS [facility]; Protocol Last Admin: 03/24/18 06:32 Dose: Not Given Midazolam HCl (Versed -) 2 mg IVPUSH Q2H PRN PRN Reason: AGITATION Last Admin: 03/22/18 03:28 Dose: 2 mg Morphine Sulfate (Morphine Sulfate) 3 mg IVPUSH Q2H PRN PRN Reason: PAIN LEVEL 1 - 3 Last Admin: 03/24/18 11:53 Dose: 3 mg Ondansetron HCl (Zofran Injection) 4 mg IVPUSH Q6H PRN PRN Reason: NAUSEA Pantoprazole Sodium (Protonix Iv) 40 mg IVPUSH DAILY [facility] Last Admin: 03/24/18 09:25 Dose: 40 mg - Objective Vital Signs: Vital Signs Temperature 98.9 F 03/24/18 06:00 Pulse Rate 85 03/24/18 08:00 Respiratory Rate 29 H 03/24/18 11:15 Blood Pressure 146/77 03/24/18 08:00 O2 Sat by Pulse Oximetry (%) 96 03/24/18 09:00 Constitutional: Yes: Well Nourished, No Distress, Calm Eyes: Yes: Conjunctiva Clear, EOM Intact HENT: Yes: Atraumatic, Normocephalic Neck: Yes: Supple, Trachea Midline Cardiovascular: Yes: Regular Rate and Rhythm, S1, S2 Respiratory: Yes: Regular, CTA Bilaterally Gastrointestinal: Yes: Normal Bowel Sounds, Soft. No: Distention, Tenderness, Tenderness, Epigastrium, Tenderness, Rebound ...Rectal Exam: Yes: Deferred Genitourinary: Yes: Scrotal Edema. No: CVA Tenderness - Left, CVA Tenderness - Right Musculoskeletal: Yes: Muscle Weakness Extremities: No: Cool, Cyanosis Edema: Yes Edema: LUE: 1+, RUE: 1+, LLE: 1+, RLE: 1+ Peripheral Pulses WNL: Yes Peripheral Pulses: Left Radial: 2+, Right Radial: 2+, Left Doralis Pedis: 2+, Right Dorsalis Pedis: 2+ Wound/Incision: Yes: Clean/Dry, Well Approximated, Albino Intact, Open to air Labs: CBC, BMP 03/24/18 05:35 03/24/18 05:35 INR, PTT INR 1.39 (0.82-1.09) H 03/20/18 05:55 Problem List - Problems (1) Strangulated inguinal hernia Assessment/Plan: 82yo male MMP relatively healthy with SBO abdominal pain non reducible LIH, unclear transition point and no clear bowel ischemia identified. Bibasilar pulmonary consolidation and hoarsness may be a sequela of an aspiration. POD#10 s/p Exploratory Laparotomy, segmental ressection of SB and primary stapled anastomosis for strangulated RIH. low grade fevers persists. Patient has soft bowel movements. CT scan showed worsening consolidation of the lower lobes, SB anastomosis is intact, obstruction is relieved. Sedation held, altered mental status. Now weaning on the vent. S/p percutaneous cholecystostomy in IR. ICU management Vent weaning continue quintero for I&O NGT feeds to goal for IBW Add Prostat TID IV antibiotics per ID GI and DVT prophylaxsis will follow This patient is critically ill. Time spent reviewing chart, examining patient, talking with providers and/or family and documentation is 45 minutes Code(s): K40.30 - UNIL INGUINAL HERNIA, W OBST, W/O GANGR, NOT SPCF RECUR (2) Incarcerated left inguinal hernia Code(s): K40.30 - UNIL INGUINAL HERNIA, W OBST, W/O GANGR, NOT SPCF RECUR (3) BPH (benign prostatic hyperplasia) Code(s): N40.0 - BENIGN PROSTATIC HYPERPLASIA WITHOUT LOWER URINRY TRACT SYMP Qualifiers: Qualified Code(s): N40.1 - Benign prostatic hyperplasia with lower urinary tract symptoms; R35.0 - Frequency of micturition (4) DDD (degenerative disc disease), cervical Code(s): M50.30 - OTHER CERVICAL DISC DEGENERATION, UNSP CERVICAL REGION (5) SBO (small bowel obstruction) Code(s): K56.609 - UNSP INTESTNL OBST, UNSP TO PARTIAL VERSUS COMPLETE OBST (6) Aspiration pneumonia of both lower lobes due to gastric secretions Code(s): J69.0 - PNEUMONITIS DUE TO INHALATION OF FOOD AND VOMIT
--- NOTE | 2018-03-24 13:02 | PN ---
Physical Exam: SUBJECTIVE: Patient seen and examined. Vomited significant amount last night per Nurse. Tube feeds were held. OBJECTIVE: Vital Signs Period Temp Pulse Resp BP Sys/Ceballos Pulse Ox Last 24 Hr 98.6 F-99.8 F 77-113 12-27 116-151/61-77 94-98 GENERAL: intubated, arousable to verbal stimuli, not responsive EYES: PERRL, sclera anicteric ENT: dry mucous membranes. LUNGS: scattered rhonchi HEART: Regular rate and rhythm, S1, S2 without murmur, rub or gallop. ABDOMEN: c-tube, +BS, grimaces to palpation EXTREMITIES: 2+ pulses, warm, well-perfused, no edema. Laboratory Results - last 24 hr 03/23/18 03/23/18 03/23/18 13:24 15:50 18:16 WBC RBC Hgb Hct MCV MCH MCHC RDW Plt Count MPV Neutrophils % Lymphocytes % Monocytes % Eosinophils % Basophils % Nucleated RBC % PTT (Actin FS) Sodium Potassium Chloride Carbon Dioxide Anion Gap BUN Creatinine Creat Clearance w eGFR POC Glucometer [phone] Random Glucose Calcium Phosphorus Magnesium Total Bilirubin AST ALT Alkaline Phosphatase Total Protein Albumin Vancomycin Pre-Dose 4.931 L 03/23/18 03/24/18 03/24/18 21:26 05:35 05:35 WBC 19.8 H RBC 4.40 Hgb 13.2 Hct 39.6 MCV 90.0 MCH 29.9 MCHC 33.2 RDW 14.3 Plt Count 339 MPV 10.1 Neutrophils % 82.4 Lymphocytes % 8.9 D Monocytes % 7.9 Eosinophils % 0.3 Basophils % 0.5 Nucleated RBC % 0 PTT (Actin FS) 52.0 H Sodium Potassium Chloride Carbon Dioxide Anion Gap BUN Creatinine Creat Clearance w eGFR POC Glucometer [phone] Random Glucose Calcium Phosphorus Magnesium Total Bilirubin AST ALT Alkaline Phosphatase Total Protein Albumin Vancomycin Pre-Dose 03/24/18 03/24/18 05:35 05:42 WBC RBC Hgb Hct MCV MCH MCHC RDW Plt Count MPV Neutrophils % Lymphocytes % Monocytes % Eosinophils % Basophils % Nucleated RBC % PTT (Actin FS) Sodium 142 Potassium 4.0 Chloride 102 Carbon Dioxide 36 H Anion Gap 4 L BUN 34 H Creatinine 0.6 L Creat Clearance w eGFR > 60 POC Glucometer [phone] Random Glucose 175 H D Calcium 7.1 L Phosphorus 2.2 L D Magnesium 2.1 Total Bilirubin 4.7 H D AST 106 H ALT 99 H Alkaline Phosphatase 109 Total Protein 4.9 L Albumin 1.1 L Vancomycin Pre-Dose Active Medications Generic Name Dose Route Start Last Admin Trade Name Freq PRN Reason Stop Dose Admin Artificial Tears 1 drop 03/24/18 10:59 Artificial Tears OU BID PRN DRY EYES Chlorhexidine Gluconate 15 ml 03/13/18 10:00 03/24/18 09:29 Peridex - MM 15 ml BID [facility] Administration Chlorhexidine Gluconate 1 applic 03/13/18 22:00 03/23/18 21:10 Hibiclens For Decolonization - TP 1 applic HS [facility] Administration Heparin Sodium (Porcine) 1,000 unit 03/20/18 14:07 03/22/18 08:17 Heparin - IVPUSH 1,000 unit PRN PRN Administration Heparin Heparin Sodium (Porcine) 5,000 unit 03/20/18 14:07 Heparin - IVPUSH PRN PRN Heparin Vancomycin HCl 1,250 mg/ 250 mls @ 250 mls/2 hr 03/17/18 16:00 03/23/18 17:00 Dextrose IVPB 250 mls/2 hr Q24H [facility] Administration Protocol Meropenem 1 gm/ Dextrose 100 mls @ 200 mls/hr 03/19/18 18:00 03/24/18 09:29 IVPB 200 mls/hr Q8H-IV [facility] Administration HEPARIN SOD,PORK IN 0.45% NACL 25,000 units in 500 mls @ 20 mls/hr 03/20/18 14 :15 03/23/18 16:49 Heparin-1/2ns 25,000 Units/500 IVPB 1,100 units/hr TITR [facility] 22 mls/hr Administration Protocol 1,000 UNITS/HR Potassium Phosphate 30 mm/ 260 mls @ 62.5 mls/hr 03/24/18 09:05 03/24/18 11: 25 Dextrose IVPB 03/24/18 13:14 62.5 mls/hr ONCE ONE Administration Insulin Aspart 1 vial 03/23/18 11:00 03/24/18 06:32 Novolog Vial Sliding Scale - SQ Not Given ACHS [facility] Protocol Midazolam HCl 2 mg 03/21/18 12:20 03/22/18 03:28 Versed - IVPUSH 2 mg Q2H PRN Administration AGITATION Morphine Sulfate 3 mg 03/24/18 10:57 Morphine Sulfate IVPUSH Q2H PRN PAIN LEVEL 1 - 3 Ondansetron HCl 4 mg 03/13/18 04:30 Zofran Injection IVPUSH Q6H PRN NAUSEA Pantoprazole Sodium 40 mg 03/13/18 10:00 03/24/18 09:25 Protonix Iv IVPUSH 40 mg DAILY [facility] Administration ASSESSMENT/PLAN: 82yo relatively healthy M presented w/ SBO from an incarcerated R inguinal hernia after weight training #PULM -Acute Hypoxic Respiratory Failure, Aspiration PNA, ARDS -low tidal volume ventilation -Taper Fi02, Peep to keep O2 Sat >90% -Will decrease Peep to 5 in afternoon if maintains sat >95% -keep Pplat <30 -minimize sedation to assess mental status -spontaneous breathing trials as tolerated when mental status improved -1x Lasix 40mg #GI Incarcerated Inguinal Hernia s/p ex-lap/segmental terminal ileum resection/primary anastamosis 03/13 r/o Acalculus Cholecystitis s/p percutaneous cholecystostomy, s/p percutaneous drainage by IR 03/20 -vomited last night, had BM -Tube feeds restarted, check residuals -Zofran for nausea -IV abx Meropenem, Vancomycin #CV -Afib/A-flutter -rate controlled -Heparin Ggt -Fu cardio reccs #Neuro -altered mental status likely from previous sedations -will monitor #FEN -No IV fluids -WNL -Tube feeds, prosource #PPx -Protonix -Heparin cont ICU monitoring Visit type - Emergency Visit Emergency Visit: Yes ED Registration Date: 03/12/18 Care time: The patient presented to the Emergency Department on the above date and was hospitalized for further evaluation of their emergent condition. - New Patient This patient is new to me today: No - Critical Care Critical Care patient: Yes Total Critical Care Time (in minutes): 40 Critical Care Statement: The care of this patient involved high complexity decision making to prevent further life threatening deterioration of the patient 's condition and/or to evaluate & treat vital organ system(s) failure or risk of failure.
[2018-03-24] MEDS: ARTIFICIAL TEARS (POLYVINYL ALCOHOL 1.4%) OPTH DROPS OU PRN (13:23)
[2018-03-24] MEDS: MIDAZOLAM HCL 2 MG/2 ML SINGLE DOSE VIAL IVPUSH PRN ×2 (13:28→22:31)
--- NOTE | 2018-03-24 14:12 | PN ---
Progress Note, Physician History of Present Illness: stable starting to improve bili increasing still on vent occasional response vent settings improving - Current Medication List Current Medications: Active Medications Amino Acids (Prosource No Carb Liquid Pkt) 30 ml PO DAILY [facility] Artificial Tears (Artificial Tears) 1 drop OU BID PRN PRN Reason: DRY EYES Last Admin: 03/24/18 13:23 Dose: 1 drop Chlorhexidine Gluconate (Peridex -) 15 ml MM BID [facility] Last Admin: 03/24/18 09:29 Dose: 15 ml Chlorhexidine Gluconate (Hibiclens For Decolonization -) 1 applic TP HS [facility] Last Admin: 03/23/18 21:10 Dose: 1 applic Heparin Sodium (Porcine) (Heparin -) 1,000 unit IVPUSH PRN PRN PRN Reason: Heparin Last Admin: 03/22/18 08:17 Dose: 1,000 unit Heparin Sodium (Porcine) (Heparin -) 5,000 unit IVPUSH PRN PRN PRN Reason: Heparin Vancomycin HCl 1,250 mg/ (Dextrose) 250 mls @ 250 mls/2 hr IVPB Q24H [facility]; Protocol Last Admin: 03/23/18 17:00 Dose: 250 mls/2 hr Meropenem 1 gm/ Dextrose 100 mls @ 200 mls/hr IVPB Q8H-IV [facility] Last Admin: 03/24/18 09:29 Dose: 200 mls/hr HEPARIN SOD,PORK IN 0.45% NACL (Heparin-1/2ns 25,000 Units/500) 25,000 units in 500 mls @ 20 mls/hr IVPB TITR [facility]; Protocol Last Admin: 03/23/18 16:49 Dose: 1,100 units/hr, 22 mls/hr Insulin Aspart (Novolog Vial Sliding Scale -) 1 vial SQ ACHS [facility]; Protocol Last Admin: 03/24/18 12:26 Dose: 4 units Midazolam HCl (Versed -) 2 mg IVPUSH Q2H PRN PRN Reason: AGITATION Last Admin: 03/24/18 13:28 Dose: 2 mg Morphine Sulfate (Morphine Sulfate) 3 mg IVPUSH Q2H PRN PRN Reason: PAIN LEVEL 1 - 3 Last Admin: 03/24/18 11:53 Dose: 3 mg Ondansetron HCl (Zofran Injection) 4 mg IVPUSH Q6H PRN PRN Reason: NAUSEA Pantoprazole Sodium (Protonix Iv) 40 mg IVPUSH DAILY [facility] Last Admin: 03/24/18 09:25 Dose: 40 mg - Objective Vital Signs: Vital Signs Temperature 98.4 F 03/24/18 12:00 Pulse Rate 91 H 03/24/18 14:00 Respiratory Rate 25 H 03/24/18 14:00 Blood Pressure 107/52 03/24/18 14:00 O2 Sat by Pulse Oximetry (%) 96 03/24/18 09:00 Constitutional: Yes: Other Neck: Yes: Supple Cardiovascular: Yes: Regular Rate and Rhythm Respiratory: Yes: Intubated, Mechanically Ventilated Gastrointestinal: Yes: Normal Bowel Sounds, Soft Musculoskeletal: Yes: WNL Extremities: Yes: WNL Wound/Incision: Yes: Clean/Dry Neurological: Yes: Other Psychiatric: Yes: Other Labs: CBC, BMP 03/24/18 05:35 03/24/18 05:35 INR, PTT INR 1.39 (0.82-1.09) H 03/20/18 05:55 - ....Imaging Chest X-ray: Report Reviewed, Image Reviewed Assessment/Plan Problem List - Problems (1) Strangulated inguinal hernia Pulmonary evaluation - weaning today? GI Evaluation - Tbili 3.5, 3.6 BP goal MAP 65-70, has a stapled small bowel anastomosis avoid lwo flow states will follow Code(s): K40.30 - UNIL INGUINAL HERNIA, W OBST, W/O GANGR, NOT SPCF RECUR (2) Incarcerated left inguinal hernia Code(s): K40.30 - UNIL INGUINAL HERNIA, W OBST, W/O GANGR, NOT SPCF RECUR (3) BPH (benign prostatic hyperplasia) Code(s): N40.0 - BENIGN PROSTATIC HYPERPLASIA WITHOUT LOWER URINRY TRACT SYMP Qualifiers: Lower urinary tract symptom presence: symptoms present Lower urinary tract symptom detail: urinary frequency Qualified Code(s): N40.1 - Benign prostatic hyperplasia with lower urinary tract symptoms; R35.0 - Frequency of micturition ; R35.0 - Frequency of micturition (4) DDD (degenerative disc disease), cervical Code(s): M50.30 - OTHER CERVICAL DISC DEGENERATION, UNSP CERVICAL REGION (5) SBO (small bowel obstruction) Code(s): K56.609 - UNSP INTESTNL OBST, UNSP TO PARTIAL VERSUS COMPLETE OBST (6) Aspiration pneumonia of both lower lobes due to gastric secretions Code(s): J69.0 - PNEUMONITIS DUE TO INHALATION OF FOOD AND VOMIT r/o acalculus choley plan continue abx zosyn on hold monitor for fevers monitor vent setting rest as per icu monitor bilrubin levels increase dose of vanco to 1500 aggressive chest pt continue suctioning improving cc 40 min
[2018-03-24] MEDS: HEPARIN SOD,PORK IN 0.45% NACL 25,000 UNITS/500 ML INFUS.BAG IVPB SCH (14:32)
[2018-03-24] MEDS: AMINO ACIDS/PROTEIN HYDROLYS 30 ML LIQUID.PKT PO SCH (14:32)
--- NOTE | 2018-03-24 14:42 | PN ---
Teaching Attending Note Name of Resident: Mukul White ATTENDING PHYSICIAN STATEMENT I saw and evaluated the patient. I reviewed the resident's note and discussed the case with the resident. I agree with the resident's findings and plan as documented. SUBJECTIVE: Patient is off sedation. He remains on vent. He appears comfortabe. OBJECTIVE: Vital Signs Period Temp Pulse Resp BP Sys/Ceballos Pulse Ox Last 24 Hr 98.4 F-99.8 F 77-113 12-37 107-151/52-77 94-98 HEART: S1S2, RRR LUNGS: Bilateral rhonchi ABDOMEN: Soft, non-distended, normal BS EXTREMITIES: Trace edema Laboratory Results - last 24 hr 03/23/18 03/23/18 03/23/18 13:24 15:50 18:16 WBC RBC Hgb Hct MCV MCH MCHC RDW Plt Count MPV Neutrophils % Lymphocytes % Monocytes % Eosinophils % Basophils % Nucleated RBC % PTT (Actin FS) Sodium Potassium Chloride Carbon Dioxide Anion Gap BUN Creatinine Creat Clearance w eGFR POC Glucometer 360.28193 [phone] Random Glucose Calcium Phosphorus Magnesium Total Bilirubin AST ALT Alkaline Phosphatase Total Protein Albumin Vancomycin Pre-Dose 4.931 L 03/23/18 03/24/18 03/24/18 21:26 05:35 05:35 WBC 19.8 H RBC 4.40 Hgb 13.2 Hct 39.6 MCV 90.0 MCH 29.9 MCHC 33.2 RDW 14.3 Plt Count 339 MPV 10.1 Neutrophils % 82.4 Lymphocytes % 8.9 D Monocytes % 7.9 Eosinophils % 0.3 Basophils % 0.5 Nucleated RBC % 0 PTT (Actin FS) 52.0 H Sodium Potassium Chloride Carbon Dioxide Anion Gap BUN Creatinine Creat Clearance w eGFR POC Glucometer [phone] Random Glucose Calcium Phosphorus Magnesium Total Bilirubin AST ALT Alkaline Phosphatase Total Protein Albumin Vancomycin Pre-Dose 03/24/18 03/24/18 05:35 05:42 WBC RBC Hgb Hct MCV MCH MCHC RDW Plt Count MPV Neutrophils % Lymphocytes % Monocytes % Eosinophils % Basophils % Nucleated RBC % PTT (Actin FS) Sodium 142 Potassium 4.0 Chloride 102 Carbon Dioxide 36 H Anion Gap 4 L BUN 34 H Creatinine 0.6 L Creat Clearance w eGFR > 60 POC Glucometer [phone] Random Glucose 175 H D Calcium 7.1 L Phosphorus 2.2 L D Magnesium 2.1 Total Bilirubin 4.7 H D AST 106 H ALT 99 H Alkaline Phosphatase 109 Total Protein 4.9 L Albumin 1.1 L Vancomycin Pre-Dose Current Medications Generic Name Dose Route Start Last Admin Trade Name Freq PRN Reason Stop Dose Admin Amino Acids 30 ml 03/24/18 13:00 03/24/18 14:32 Prosource No Carb Liquid Pkt PO 30 ml DAILY JUDY Administration Artificial Tears 1 drop 03/24/18 10:59 03/24/18 13:23 Artificial Tears OU 1 drop BID PRN Administration DRY EYES Chlorhexidine Gluconate 15 ml 03/13/18 10:00 03/24/18 09:29 Peridex - MM 15 ml BID JUDY Administration Chlorhexidine Gluconate 1 applic 03/13/18 22:00 03/23/18 21:10 Hibiclens For Decolonization - TP 1 applic HS JUDY Administration Heparin Sodium (Porcine) 1,000 unit 03/20/18 14:07 03/22/18 08:17 Heparin - IVPUSH 1,000 unit PRN PRN Administration Heparin Heparin Sodium (Porcine) 5,000 unit 03/20/18 14:07 Heparin - IVPUSH PRN PRN Heparin Vancomycin HCl 1,250 mg/ 250 mls @ 250 mls/2 hr 03/17/18 16:00 03/23/18 17:00 Dextrose IVPB 250 mls/2 hr Q24H JUDY Administration Protocol Meropenem 1 gm/ Dextrose 100 mls @ 200 mls/hr 03/19/18 18:00 03/24/18 09:29 IVPB 200 mls/hr Q8H-IV JUDY Administration HEPARIN SOD,PORK IN 0.45% NACL 25,000 units in 500 mls @ 20 mls/hr 03/20/18 14 :15 03/24/18 14:32 Heparin-1/2ns 25,000 Units/500 IVPB 1,100 units/hr TITR JUDY 22 mls/hr Administration Protocol 1,000 UNITS/HR Insulin Aspart 1 vial 03/23/18 11:00 03/24/18 12:26 Novolog Vial Sliding Scale - SQ 4 units ACHS JUDY Administration Protocol Midazolam HCl 2 mg 03/21/18 12:20 03/24/18 13:28 Versed - IVPUSH 2 mg Q2H PRN Administration AGITATION Morphine Sulfate 3 mg 03/24/18 10:57 03/24/18 11:53 Morphine Sulfate IVPUSH 3 mg Q2H PRN Administration PAIN LEVEL 1 - 3 Ondansetron HCl 4 mg 03/13/18 04:30 Zofran Injection IVPUSH Q6H PRN NAUSEA Pantoprazole Sodium 40 mg 03/13/18 10:00 03/24/18 09:25 Protonix Iv IVPUSH 40 mg DAILY JUDY Administration ASSESSMENT AND PLAN: This is an 82 year old man with a history of DDD, GERD, diverticulosis, BPH who presented to the ED with abdominal pain and vomiting. 1. Acute hypoxic respiratory failure secondary to sepsis, aspiration pneumonia, ARDS - Remains intubated - Off sedation - Vent management as per pulmonary/critical care - Continue Merrem, Vancomycin - Zosyn discontinued secondary to worsening LFTs - s/p Lasix and IV fluid has been discontinued 2. Septic shock - Off pressors 3. Atrial fibrillation/flutter - Remains in atrial flutter, rate is ok - Continue heparin IV drip - Echo shows normal LVEF, mild MR, normal RV systolic function 4. SBO with infarcted bowel - s/p exploratory laparotomy, segmental terminal ileum resection with primary anastomosis 03/13 5. Possible acalculous cholecystitis - s/p percutaneous drainage by IR 03/20 - Follow up culture 6. Acute kidney injury - Resolved 7. Hypoalbuminemia 8. Pseudohypocalcemia - Corrected calcium is 9.4 9. Hypophosphatemia - Improving - Continue to supplement phosphorus 10. Hepatic transaminitis - Possibly secondary to hypotension, Zosyn - Zosyn discontinued - AST and ALT improving 11. Hyperbilirubinemia - Total bili worsening 12. Stress ulcer prophylaxis - Continue Protonix 13. DVT prophylaxis - On heparin IV 14. Nutrition - Continue Pivot 1.5 via NGT - Continue Prosource
[2018-03-24] MEDS ORDERED: VANCOMYCIN 250 MG in DEXTROSE 5%-WATER - 100 ML IVPB ONE (14:54)
[2018-03-24] MEDS: VANCOMYCIN 1,250 MG in DEXTROSE 5%-WATER - 250 ML IVPB SCH (17:02)
--- NOTE | 2018-03-24 17:51 | PN ---
Physical Exam: SUBJECTIVE: Pt currently intubated without sedation. Pt is opens eyes to voice, however does not listen to commands or tracks voice across room at the present time. Of note pt had multiple episodes of NB/NB emesis and NGT feeds were held. Currently pt is in minimal distress on AC mode of vent without sedation. OBJECTIVE: Vital Signs Period Temp Pulse Resp BP Sys/Ceballos Pulse Ox Last 24 Hr 98.4 F-98.9 F 77-113 12-37 107-151/52-81 94-98 GENERAL: NAD, intubated, arousal to voice, unresponsive to commands HEENT: KITTY, NG in place, dry mucous membranes, ETT noted Neck: R IJ line site C/D/I, no JVD LUNGS: Diminshed b/l breath sounds at bases. AC mode: TV 450, PEEP 8, FiO2 45%, RR 12 HEART: RRR, S1, S2 without murmur ABDOMEN: Soft, nondistended, facial grimmacing with palpation (unsure of tenderness), Midline incision C/D/I, C-tube draining dark fluid w/o purulence. EXTREMITIES: 2+ DP pulses, warm, 1+ ankle and upper extremity edema noted SKIN: Warm, dry, no rashes noted Laboratory Results - last 24 hr 03/23/18 03/23/18 03/24/18 18:16 21:26 05:35 WBC RBC Hgb Hct MCV MCH MCHC RDW Plt Count MPV Neutrophils % Lymphocytes % Monocytes % Eosinophils % Basophils % Nucleated RBC % PTT (Actin FS) 52.0 H Sodium Potassium Chloride Carbon Dioxide Anion Gap BUN Creatinine Creat Clearance w eGFR POC Glucometer 335.23307 253.05711 Random Glucose Calcium Phosphorus Magnesium Total Bilirubin AST ALT Alkaline Phosphatase Total Protein Albumin 03/24/18 03/24/18 03/24/18 05:35 05:35 05:42 WBC 19.8 H RBC 4.40 Hgb 13.2 Hct 39.6 MCV 90.0 MCH 29.9 MCHC 33.2 RDW 14.3 Plt Count 339 MPV 10.1 Neutrophils % 82.4 Lymphocytes % 8.9 D Monocytes % 7.9 Eosinophils % 0.3 Basophils % 0.5 Nucleated RBC % 0 PTT (Actin FS) Sodium 142 Potassium 4.0 Chloride 102 Carbon Dioxide 36 H Anion Gap 4 L BUN 34 H Creatinine 0.6 L Creat Clearance w eGFR > 60 POC Glucometer 163.92469 Random Glucose 175 H D Calcium 7.1 L Phosphorus 2.2 L D Magnesium 2.1 Total Bilirubin 4.7 H D AST 106 H ALT 99 H Alkaline Phosphatase 109 Total Protein 4.9 L Albumin 1.1 L 03/24/18 17:02 WBC RBC Hgb Hct MCV MCH MCHC RDW Plt Count MPV Neutrophils % Lymphocytes % Monocytes % Eosinophils % Basophils % Nucleated RBC % PTT (Actin FS) Sodium Potassium Chloride Carbon Dioxide Anion Gap BUN Creatinine Creat Clearance w eGFR POC Glucometer [phone] Random Glucose Calcium Phosphorus Magnesium Total Bilirubin AST ALT Alkaline Phosphatase Total Protein Albumin Active Medications Generic Name Dose Route Start Last Admin Trade Name Freq PRN Reason Stop Dose Admin Amino Acids 30 ml 03/24/18 13:00 03/24/18 14:32 Prosource No Carb Liquid Pkt PO 30 ml DAILY JUDY Administration Artificial Tears 1 drop 03/24/18 10:59 03/24/18 13:23 Artificial Tears OU 1 drop BID PRN Administration DRY EYES Chlorhexidine Gluconate 15 ml 03/13/18 10:00 03/24/18 09:29 Peridex - MM 15 ml BID JUDY Administration Chlorhexidine Gluconate 1 applic 03/13/18 22:00 03/23/18 21:10 Hibiclens For Decolonization - TP 1 applic HS JUDY Administration Heparin Sodium (Porcine) 1,000 unit 03/20/18 14:07 03/22/18 08:17 Heparin - IVPUSH 1,000 unit PRN PRN Administration Heparin Heparin Sodium (Porcine) 5,000 unit 03/20/18 14:07 Heparin - IVPUSH PRN PRN Heparin Meropenem 1 gm/ Dextrose 100 mls @ 200 mls/hr 03/19/18 18:00 03/24/18 09:29 IVPB 200 mls/hr Q8H-IV JUDY Administration HEPARIN SOD,PORK IN 0.45% NACL 25,000 units in 500 mls @ 20 mls/hr 03/20/18 14 :15 03/24/18 14:32 Heparin-1/2ns 25,000 Units/500 IVPB 1,100 units/hr TITR JUDY 22 mls/hr Administration Protocol 1,000 UNITS/HR Vancomycin HCl 1,500 mg/ 500 mls @ 250 mls/hr 03/25/18 15:00 Dextrose IVPB Q24H [facility] Protocol Insulin Aspart 1 vial 03/23/18 11:00 03/24/18 17:30 Novolog Vial Sliding Scale - SQ 4 units ACHS JUDY Administration Protocol Midazolam HCl 2 mg 03/21/18 12:20 03/24/18 13:28 Versed - IVPUSH 2 mg Q2H PRN Administration AGITATION Morphine Sulfate 3 mg 03/24/18 10:57 03/24/18 11:53 Morphine Sulfate IVPUSH 3 mg Q2H PRN Administration PAIN LEVEL 1 - 3 Ondansetron HCl 4 mg 03/13/18 04:30 Zofran Injection IVPUSH Q6H PRN NAUSEA Pantoprazole Sodium 40 mg 03/13/18 10:00 03/24/18 09:25 Protonix Iv IVPUSH 40 mg DAILY JUDY Administration ASSESSMENT/PLAN: 1) Acute hypoxic respiratory failure --Prior ARDS picture now slightly improving --CXR improving today; may lag a couple of days though so cautious about finding --Vent settings decreasing as tolerated --Hold sedation until better baseline mental status can be assessed --Maintain SpO2 >90% 2) Septic shock 2/2 to bowel ischemia in addition to aspiration PNA --Remains off pressors --Zosyn discontinued over weekend due to rising bilirubin and LFTs --ID on board --Meropenem day 6 to continue --Vancomycin 1.25gm qDaily (day 9) 3) Elevated LFTs --Bilirubin remains elevated --C-tube in place draining bile --Monitor output and if decreased in day-to-day comparison possibility of having to reposition C-tube 4) Atrial flutter --Cardiology consulted --Heparin gtt remains; monitor aPtt --Echo unremarkable FEN: Fluids: Avoid Electrolyte abnormalities: Hypophosphatemia; (KPhos 30mm repleted) Nutrition: Will attempt to restart feeds; added prosource for hypoalbumin state PPX: DVT - Heparin gtt on already GI - Protonix 40mg IVP daily Dispo: Continue ICU monitoring Case discussed with Dr. Madsen and ICU team Mukul White, DO - IM PGY-1 Visit type - Emergency Visit Emergency Visit: No - New Patient This patient is new to me today: No - Critical Care Critical Care patient: Yes Total Critical Care Time (in minutes): 35 Critical Care Statement: The care of this patient involved high complexity decision making to prevent further life threatening deterioration of the patient 's condition and/or to evaluate & treat vital organ system(s) failure or risk of failure.
[2018-03-24] MEDS: CHLORHEXIDINE GLUCONATE 4% CLEANSER FOR DECOLONIZATION TP SCH (21:24)
[2018-03-25] MEDS ORDERED: PT OWN MED DRAWER 7, Y5N ONE ×5 (02:52→19:33)
[2018-03-25] MEDS: MEROPENEM 1 GM in DEXTROSE 5%-WATER 100 ML IVPB SCH ×3 (02:57→19:32)
[2018-03-25] MEDS: INSULIN SLIDING SCALE (NOVOLOG) 1 VIAL SQ SCH ×4 (06:17→21:21)
[2018-03-25 06:28] LABS: HEMATOCRIT 38.7 % (35.4-49); MCH 30.3 pg (25.7-33.7); MCHC 33.6 g/dl (32.0-35.9); MEAN CELL VOLUME 90.2 fl (80-96); MEAN PLT VOLUME 10.4 fl (7.5-11.1); PLATELET COUNT 366 K/MM3 (134-434); RBC 4.29 M/mm3 (4.00-5.60); RDW 13.8 % (11.9-15.9); WHITE BLOOD COUNT 14.9 K/mm3 (4.0-10.0)
[2018-03-25 06:49] LABS: CHLORIDE 103 mmol/L (98-107); POTASSIUM 4.1 mmol/L (3.5-5.1); SODIUM 140 mmol/L (136-145)
[2018-03-25 06:58] LABS: ALBUMIN 1.1 g/dl (3.4-5.0); ALK PHOS 107 U/L (45-117); ANION GAP 5 (8-16); BILIRUBIN,TOTAL 5.3 mg/dL (0.2-1.0); BLOOD UREA NITROGEN 35 mg/dL (7-18); CALCIUM 7.2 mg/dL (8.5-10.1); CO2 32 mmol/L (21-32); CREATININE 0.6 mg/dL (0.7-1.3); GLUCOSE,RANDOM 233 mg/dL (74-106); MAGNESIUM 2.4 mg/dL (1.8-2.4); PHOSPHOROUS 2.2 mg/dL (2.5-4.9); SGOT/AST 93 U/L (15-37); SGPT/ALT 87 U/L (12-78)
--- NOTE | 2018-03-25 07:54 | PN ---
Physical Exam: SUBJECTIVE: No acute events overnight. Pt sinus tachycardia on monitor currently. Remains off sedation. OBJECTIVE: Vital Signs Period Temp Pulse Resp BP Sys/Ceballos Pulse Ox Last 24 Hr 98.4 F-99.3 F 82-91 16-37 107-146/52-81 96-98 GENERAL: NAD, intubated, arousal to voice, unresponsive to commands HEENT: KITTY, NG in place, dry mucous membranes, ETT noted Neck: L IJ line site C/D/I, no JVD LUNGS: Diminshed b/l breath sounds at bases. AC mode: TV 450, PEEP 8, FiO2 45%, RR 12 HEART: RRR, S1, S2 without murmur ABDOMEN: Soft, nondistended, facial grimmacing with palpation (unsure of tenderness), Midline incision C/D/I, C-tube draining dark fluid w/o purulence. EXTREMITIES: 2+ DP pulses, warm, 1+ ankle and upper extremity edema noted SKIN: Warm, dry, erythematous streaking rash noted on R upper extremity originating from scab to mid biceps. No palpable cord felt. No excessive warmth of rash. Laboratory Results - last 24 hr 03/24/18 03/25/18 03/25/18 17:02 05:30 05:30 WBC 14.9 H RBC 4.29 Hgb 13.0 Hct 38.7 MCV 90.2 MCH 30.3 MCHC 33.6 RDW 13.8 Plt Count 366 MPV 10.4 PTT (Actin FS) Sodium 140 Potassium 4.1 Chloride 103 Carbon Dioxide 32 Anion Gap 5 L BUN 35 H Creatinine 0.6 L Creat Clearance w eGFR > 60 POC Glucometer 214.46929 Random Glucose 233 H D Calcium 7.2 L Phosphorus 2.2 L Magnesium 2.4 Total Bilirubin 5.3 H AST 93 H ALT 87 H Alkaline Phosphatase 107 Total Protein 5.0 L Albumin 1.1 L 03/25/18 03/25/18 05:30 05:52 WBC RBC Hgb Hct MCV MCH MCHC RDW Plt Count MPV PTT (Actin FS) 43.1 H Sodium Potassium Chloride Carbon Dioxide Anion Gap BUN Creatinine Creat Clearance w eGFR POC Glucometer [phone] Random Glucose Calcium Phosphorus Magnesium Total Bilirubin AST ALT Alkaline Phosphatase Total Protein Albumin Active Medications Generic Name Dose Route Start Last Admin Trade Name Freq PRN Reason Stop Dose Admin Amino Acids 30 ml 03/24/18 13:00 03/24/18 14:32 Prosource No Carb Liquid Pkt PO 30 ml DAILY JUDY Administration Artificial Tears 1 drop 03/24/18 10:59 03/24/18 13:23 Artificial Tears OU 1 drop BID PRN Administration DRY EYES Chlorhexidine Gluconate 15 ml 03/13/18 10:00 03/24/18 21:25 Peridex - MM 15 ml BID JUDY Administration Chlorhexidine Gluconate 1 applic 03/13/18 22:00 03/24/18 21:24 Hibiclens For Decolonization - TP 1 applic HS JUDY Administration Heparin Sodium (Porcine) 1,000 unit 03/20/18 14:07 03/22/18 08:17 Heparin - IVPUSH 1,000 unit PRN PRN Administration Heparin Heparin Sodium (Porcine) 5,000 unit 03/20/18 14:07 Heparin - IVPUSH PRN PRN Heparin Meropenem 1 gm/ Dextrose 100 mls @ 200 mls/hr 03/19/18 18:00 03/25/18 02:57 IVPB 200 mls/hr Q8H-IV JUDY Administration HEPARIN SOD,PORK IN 0.45% NACL 25,000 units in 500 mls @ 20 mls/hr 03/20/18 14 :15 03/24/18 14:32 Heparin-1/2ns 25,000 Units/500 IVPB 1,100 units/hr TITR JUDY 22 mls/hr Administration Protocol 1,000 UNITS/HR Vancomycin HCl 1,500 mg/ 500 mls @ 250 mls/hr 03/25/18 15:00 Dextrose IVPB Q24H JUDY Protocol Insulin Aspart 1 vial 03/23/18 11:00 03/25/18 06:17 Novolog Vial Sliding Scale - SQ 6 units ACHS JUDY Administration Protocol Midazolam HCl 2 mg 03/21/18 12:20 03/24/18 22:31 Versed - IVPUSH 2 mg Q2H PRN Administration AGITATION Morphine Sulfate 3 mg 03/24/18 10:57 03/24/18 11:53 Morphine Sulfate IVPUSH 3 mg Q2H PRN Administration PAIN LEVEL 1 - 3 Ondansetron HCl 4 mg 03/13/18 04:30 Zofran Injection IVPUSH Q6H PRN NAUSEA Pantoprazole Sodium 40 mg 03/13/18 10:00 03/24/18 09:25 Protonix Iv IVPUSH 40 mg DAILY JUDY Administration ASSESSMENT/PLAN: 1) Acute hypoxic respiratory failure --Prior ARDS picture now slightly improving --CXR improving today; may lag a couple of days though so cautious about finding --Vent settings decreasing as tolerated --Hold sedation until better baseline mental status can be assessed --HEAD CT noncontrast in lieu of not regaining mental status --Maintain SpO2 >90% 2) Septic shock 2/2 to bowel ischemia in addition to aspiration PNA --Remains off pressors --ID on board --Meropenem day 7 to continue --Vancomycin 1.25gm qDaily (day 10) 3) Elevated LFTs --Bilirubin remains elevated from 4.7 to 5.3 today --C-tube in place draining bile --OUtput of 145cc today; monitor 24h; most likely adequate, but unsure of etiology behind rise 4) Atrial flutter --Cardiology consulted --Heparin gtt remains; monitor aPtt --Echo unremarkable FEN: Fluids: Avoid Electrolyte abnormalities: Hypophosphatemia; (KPhos 30mm again repleted); pseudohypocalcemia Nutrition: NGT feeds ongoing; rate 40 with prosource on board PPX: DVT - Heparin gtt on already GI - Protonix 40mg IVP daily Dispo: Continue ICU monitoring Case discussed with Dr. Mati White, DO - IM PGY-1 Visit type - Emergency Visit Emergency Visit: No - New Patient This patient is new to me today: No - Critical Care Critical Care patient: Yes Total Critical Care Time (in minutes): 35 Critical Care Statement: The care of this patient involved high complexity decision making to prevent further life threatening deterioration of the patient 's condition and/or to evaluate & treat vital organ system(s) failure or risk of failure.
[2018-03-25] MEDS: HEPARIN SOD,PORK IN 0.45% NACL 25,000 UNITS/500 ML INFUS.BAG IVPB SCH ×2 (08:59→17:00)
[2018-03-25] MEDS: HEPARIN NA (PORCINE) 5,000 UNITS/ML 1ML VIAL IVPUSH PRN ×2 (08:59→17:00)
[2018-03-25] MEDS ORDERED: POTASSIUM PHOSPHATE 30 MM in DEXTROSE 5%-WATER - 250 ML IVPB ONE (09:09)
[2018-03-25] MEDS: CHLORHEXIDINE GLUCONATE 0.12% 15ML CUP MM SCH (09:44)
[2018-03-25] MEDS: PANTOPRAZOLE SODIUM 40 MG VIAL IVPUSH SCH (09:44)
[2018-03-25] MEDS: AMINO ACIDS/PROTEIN HYDROLYS 30 ML LIQUID.PKT PO SCH (09:44)
--- NOTE | 2018-03-25 09:49 | PN ---
Progress Note, Physician Chief Complaint: SBO History of Present Illness: 82 yo male PMH BPH, degernerative disc disease (cervical), diverticulosis, hemorrhoids presented to the ED with abdominal pain and vomiting for on day. He reports that he was weight training yesterday and developed some groin pain. He remains intubated with altered sensorium after being sedated for an extended period. He was weaned from vasopressors. - Current Medication List Current Medications: Active Medications Amino Acids (Prosource No Carb Liquid Pkt) 30 ml PO DAILY JUDY Last Admin: 03/25/18 09:44 Dose: 30 ml Artificial Tears (Artificial Tears) 1 drop OU BID PRN PRN Reason: DRY EYES Last Admin: 03/24/18 13:23 Dose: 1 drop Chlorhexidine Gluconate (Peridex -) 15 ml MM BID JUDY Last Admin: 03/25/18 09:44 Dose: 15 ml Chlorhexidine Gluconate (Hibiclens For Decolonization -) 1 applic TP HS JUDY Last Admin: 03/24/18 21:24 Dose: 1 applic Heparin Sodium (Porcine) (Heparin -) 1,000 unit IVPUSH PRN PRN PRN Reason: Heparin Last Admin: 03/25/18 08:59 Dose: 1,000 unit Heparin Sodium (Porcine) (Heparin -) 5,000 unit IVPUSH PRN PRN PRN Reason: Heparin Meropenem 1 gm/ Dextrose 100 mls @ 200 mls/hr IVPB Q8H-IV JUDY Last Admin: 03/25/18 09:44 Dose: 200 mls/hr HEPARIN SOD,PORK IN 0.45% NACL (Heparin-1/2ns 25,000 Units/500) 25,000 units in 500 mls @ 20 mls/hr IVPB TITR JUDY; Protocol Last Admin: 03/25/18 08:59 Dose: 1,200 units/hr, 24 mls/hr Vancomycin HCl 1,500 mg/ (Dextrose) 500 mls @ 250 mls/hr IVPB Q24H JUDY; Protocol Potassium Phosphate 30 mm/ (Dextrose) 260 mls @ 43.333 mls/hr IVPB ONCE ONE Stop: 03/25/18 15:08 Insulin Aspart (Novolog Vial Sliding Scale -) 1 vial SQ ACHS JUDY; Protocol Last Admin: 03/25/18 06:17 Dose: 6 units Midazolam HCl (Versed -) 2 mg IVPUSH Q2H PRN PRN Reason: AGITATION Last Admin: 03/24/18 22:31 Dose: 2 mg Morphine Sulfate (Morphine Sulfate) 3 mg IVPUSH Q2H PRN PRN Reason: PAIN LEVEL 1 - 3 Last Admin: 03/24/18 11:53 Dose: 3 mg Ondansetron HCl (Zofran Injection) 4 mg IVPUSH Q6H PRN PRN Reason: NAUSEA Pantoprazole Sodium (Protonix Iv) 40 mg IVPUSH DAILY [facility] Last Admin: 03/25/18 09:44 Dose: 40 mg - Objective Vital Signs: Vital Signs Temperature 98.8 F 03/25/18 06:00 Pulse Rate 113 H 03/25/18 08:00 Respiratory Rate 29 H 03/25/18 08:00 Blood Pressure 119/56 03/25/18 06:00 O2 Sat by Pulse Oximetry (%) 95 03/25/18 08:00 Vital Signs Period Temp Pulse Resp BP Sys/Ceballos Pulse Ox Last 24 Hr 98.4 F-99.3 F 82-113 20-37 107-132/52-81 95-98 Intake & Output 03/24/18 03/25/18 03/25/18 23:59 07:59 15:59 Intake Total 794 884 Output Total 920 800 Balance -126 84 Weight 176 lb 5.917 oz Intake: IV 264 264 HEPARIN-1/2NS 25,000 264 264 UNITS/500 25,000 units In 500 ml @ 1,000 UNITS/HR 20 mls/hr IVPB TITR JUDY Rx#:[id number] IVPB 350 100 Tube Feeding 180 400 Tube Irrigant 120 Output: Drainage 70 50 Right Upper Abdomen 70 50 Urine 850 750 Quintero 850 750 Other: Voiding Method Indwelling Catheter Weight Measurement Method Built in [facility] Constitutional: Yes: Well Nourished, No Distress, Calm Eyes: Yes: Conjunctiva Clear, EOM Intact HENT: Yes: Atraumatic, Normocephalic Neck: Yes: Supple, Trachea Midline Cardiovascular: Yes: Regular Rate and Rhythm, S1, S2 Respiratory: Yes: Regular, CTA Bilaterally, Diminished, Mechanically Ventilated Gastrointestinal: Yes: Normal Bowel Sounds, Soft Musculoskeletal: Yes: Muscle Weakness Extremities: No: Cool, Cyanosis Edema: Yes Edema: LUE: 1+, RUE: 1+, LLE: 1+, RLE: 1+ Peripheral Pulses WNL: Yes Peripheral Pulses: Left Radial: 2+, Right Radial: 2+, Left Doralis Pedis: 2+, Right Dorsalis Pedis: 2+, Left Femoral: 2+, Right Femoral: 2+ Integumentary: No: Jaundice, Rash Labs: CBC, BMP 03/25/18 05:30 03/25/18 05:30 INR, PTT INR 1.39 (0.82-1.09) H 03/20/18 05:55 Microbiology 03/20/18 11:15 Peritoneal Fluid AFB Smear Concentration - Preliminary 03/20/18 11:15 Peritoneal Fluid Mycobacterial Culture - Preliminary 03/20/18 11:15 Peritoneal Fluid Gram Stain - Final 03/20/18 11:15 Peritoneal Fluid Body Fluid Culture - Final NO GROWTH OF AEROBIC ORGANISMS AFTER 48 HOURS INCUBATION 03/20/18 11:15 Peritoneal Fluid Anaerobic Culture - Final NO ANAEROBES WERE ISOLATED 03/20/18 11:15 Peritoneal Fluid LAN Preparation - Preliminary 03/20/18 11:15 Peritoneal Fluid Fungal Culture - Preliminary 03/15/18 11:40 Blood - Central Line Blood Culture - Final NO GROWTH AFTER 5 DAYS INCUBATION 03/15/18 11:30 Blood - Central Line Blood Culture - Final NO GROWTH AFTER 5 DAYS INCUBATION 03/15/18 11:14 Blood - Peripheral Venous Blood Culture - Final NO GROWTH AFTER 5 DAYS INCUBATION 03/15/18 11:14 Blood - Peripheral Venous Blood Culture - Final NO GROWTH AFTER 5 DAYS INCUBATION 03/15/18 11:00 Sputum - Endotrachea Suction/Ventilator Gram Stain - Final 03/15/18 11:00 Sputum - Endotrachea Suction/Ventilator Sputum Culture - Final Klebsiella Oxytoca Serratia Marcescens Enterococcus Faecalis 03/16/18 16:00 Urine - Urine Quinetro Urine Culture - Final NO GROWTH OBTAINED 03/12/18 14:51 Blood - Peripheral Venous Blood Culture - Final NO GROWTH AFTER 5 DAYS INCUBATION 03/12/18 14:51 Blood - Peripheral Venous Blood Culture - Final NO GROWTH AFTER 5 DAYS INCUBATION 03/13/18 02:25 Peritoneal Fluid Gram Stain - Final 03/13/18 02:25 Peritoneal Fluid Body Fluid Culture - Final NO GROWTH OF AEROBIC ORGANISMS AFTER 48 HOURS INCUBATION 03/13/18 02:25 Peritoneal Fluid Anaerobic Culture - Final NO ANAEROBES WERE ISOLATED 03/12/18 22:12 Urine For Antigen Detection Legionella Antigen - Final 03/12/18 22:12 Urine For Antigen Detection Streptococcus pneumoniae Antigen (M - Final Problem List - Problems (1) Strangulated inguinal hernia Assessment/Plan: 82yo male MMP relatively healthy with SBO abdominal pain non reducible LIH, unclear transition point and no clear bowel ischemia identified. Bibasilar pulmonary consolidation and hoarsness may be a sequela of an aspiration. POD#10 s/p Exploratory Laparotomy, segmental ressection of SB and primary stapled anastomosis for strangulated RIH. low grade fevers persists. Patient has soft bowel movements. CT scan showed worsening consolidation of the lower lobes, SB anastomosis is intact, obstruction is relieved. Sedation held, altered mental status. Now weaning on the vent. S/p percutaneous cholecystostomy in IR. ICU management Vent weaning continue quintero for I&O NGT feeds to goal for IBW Add Prostat TID IV antibiotics per ID GI and DVT prophylaxsis will follow This patient is critically ill. Time spent reviewing chart, examining patient, talking with providers and/or family and documentation is 45 minutes Code(s): K40.30 - UNIL INGUINAL HERNIA, W OBST, W/O GANGR, NOT SPCF RECUR (2) Incarcerated left inguinal hernia Code(s): K40.30 - UNIL INGUINAL HERNIA, W OBST, W/O GANGR, NOT SPCF RECUR (3) BPH (benign prostatic hyperplasia) Code(s): N40.0 - BENIGN PROSTATIC HYPERPLASIA WITHOUT LOWER URINRY TRACT SYMP Qualifiers: Lower urinary tract symptom presence: symptoms present Lower urinary tract symptom detail: urinary frequency Qualified Code(s): N40.1 - Benign prostatic hyperplasia with lower urinary tract symptoms; R35.0 - Frequency of micturition ; R35.0 - Frequency of micturition (4) DDD (degenerative disc disease), cervical Code(s): M50.30 - OTHER CERVICAL DISC DEGENERATION, UNSP CERVICAL REGION (5) SBO (small bowel obstruction) Code(s): K56.609 - UNSP INTESTNL OBST, UNSP TO PARTIAL VERSUS COMPLETE OBST (6) Aspiration pneumonia of both lower lobes due to gastric secretions Code(s): J69.0 - PNEUMONITIS DUE TO INHALATION OF FOOD AND VOMIT
--- NOTE | 2018-03-25 11:37 | PN ---
Teaching Attending Note Name of Resident: Luke Drake ATTENDING PHYSICIAN STATEMENT I saw and evaluated the patient. I reviewed the resident's note and discussed the case with the resident. I agree with the resident's findings and plan as documented. SUBJECTIVE: Pt seen and examined in the ICU. Remains intubated, poorly responsive. Received PRN versed and morphine yesterday. Opens eyes to name but no other response. OBJECTIVE: Vital Signs Period Temp Pulse Resp BP Sys/Cbeallos Pulse Ox Last 24 Hr 98.4 F-99.3 F 82-113 20-37 107-133/52-81 95-98 Intake & Output 03/22/18 03/23/18 03/24/18 03/25/18 23:59 23:59 23:59 23:59 Intake Total 2144 2441 1131 884 Output Total 4131 9595 3595 800 [facility] -1990 -1014 -2464 84 Weight 87.317 kg 85.502 kg 82.7 kg 80 kg Gen: intubated, poorly responsive Heart: irregular Lung: scattered rhonch Abd: soft, nontender Ext: no edema CBC, BMP 03/25/18 05:30 03/25/18 05:30 Active Medications Amino Acids (Prosource No Carb Liquid Pkt) 30 ml PO DAILY JUDY Last Admin: 03/25/18 09:44 Dose: 30 ml Artificial Tears (Artificial Tears) 1 drop OU BID PRN PRN Reason: DRY EYES Last Admin: 03/24/18 13:23 Dose: 1 drop Chlorhexidine Gluconate (Peridex -) 15 ml MM BID JUDY Last Admin: 03/25/18 09:44 Dose: 15 ml Chlorhexidine Gluconate (Hibiclens For Decolonization -) 1 applic TP HS JUDY Last Admin: 03/24/18 21:24 Dose: 1 applic Heparin Sodium (Porcine) (Heparin -) 1,000 unit IVPUSH PRN PRN PRN Reason: Heparin Last Admin: 03/25/18 08:59 Dose: 1,000 unit Heparin Sodium (Porcine) (Heparin -) 5,000 unit IVPUSH PRN PRN PRN Reason: Heparin Meropenem 1 gm/ Dextrose 100 mls @ 200 mls/hr IVPB Q8H-IV JUDY Last Admin: 03/25/18 09:44 Dose: 200 mls/hr HEPARIN SOD,PORK IN 0.45% NACL (Heparin-1/2ns 25,000 Units/500) 25,000 units in 500 mls @ 20 mls/hr IVPB TITR [facility]; Protocol Last Admin: 03/25/18 08:59 Dose: 1,200 units/hr, 24 mls/hr Vancomycin HCl 1,500 mg/ (Dextrose) 500 mls @ 250 mls/hr IVPB Q24H [facility]; Protocol Potassium Phosphate 30 mm/ (Dextrose) 260 mls @ 43.333 mls/hr IVPB ONCE ONE Stop: 03/25/18 15:08 Last Admin: 03/25/18 10:43 Dose: 43.333 mls/hr Insulin Aspart (Novolog Vial Sliding Scale -) 1 vial SQ ACHS [facility]; Protocol Last Admin: 03/25/18 06:17 Dose: 6 units Midazolam HCl (Versed -) 2 mg IVPUSH Q2H PRN PRN Reason: AGITATION Last Admin: 03/24/18 22:31 Dose: 2 mg Morphine Sulfate (Morphine Sulfate) 3 mg IVPUSH Q2H PRN PRN Reason: PAIN LEVEL 1 - 3 Last Admin: 03/24/18 11:53 Dose: 3 mg Ondansetron HCl (Zofran Injection) 4 mg IVPUSH Q6H PRN PRN Reason: NAUSEA Pantoprazole Sodium (Protonix Iv) 40 mg IVPUSH DAILY [facility] Last Admin: 03/25/18 09:44 Dose: 40 mg ASSESSMENT AND PLAN: Acute Hypoxic Respiratory Failure Pneumonia - ?Aspiration ARDS Incarcerated Inguinal Hernia s/p ex-lap/segmental terminal ileum resection/primary anastamosis 03/13 r/o Acalculus Cholecystitis s/p percutaneous cholecystostomy Septic Shock resolving Acute Kidney Injury improving Lactic Acidosis resolved New onset Paroxysmal Atrial Fibrillation Diverticulosis BPH r/o Critical Illness Polyneuropathy/Myopathy - antibiotics per ID - rate controlled - continue anticoagulation - hold lasix today - monitor urine output, creatinine - low tidal volume ventilation - keep Pplat <30 - taper FiO2, PEEP to keep SpO2 >90% - minimize sedation to assess mental status - spontaneous breathing trials as tolerated when mental status improved - physiatry eval for EMG to rule out critical illness polyneuropathy/myopathy - enteral feeds - DVT/GI prophylaxis - continue ICU monitoring - discussed with family at bedside potential tracheostomy if unable to wean critical care time spent in reviewing chart, evaluating patient and formulating plan 35 min
--- NOTE | 2018-03-25 11:39 | PN ---
Physical Exam: SUBJECTIVE: Patient seen and examined. No acute events overnight. Patient awake but unresponsive. RUE swelling reported. OBJECTIVE: Vital Signs Period Temp Pulse Resp BP Sys/Ceballos Pulse Ox Last 24 Hr 98.4 F-99.3 F 82-113 20-37 107-133/52-81 95-98 GENERAL: intubated, arousable to verbal stimuli, not responsive EYES: PERRL, sclera anicteric ENT: dry mucous membranes. Neck: R IJ line site C/D/I LUNGS: scattered rhonchi HEART: Regular rate and rhythm, S1, S2 without murmur, rub or gallop. ABDOMEN: c-tube, +BS EXTREMITIES: 2+ pulses throughout. RUE swelling and erythema. Laboratory Results - last 24 hr 03/24/18 03/25/18 03/25/18 17:02 05:30 05:30 WBC 14.9 H RBC 4.29 Hgb 13.0 Hct 38.7 MCV 90.2 MCH 30.3 MCHC 33.6 RDW 13.8 Plt Count 366 MPV 10.4 PTT (Actin FS) Sodium 140 Potassium 4.1 Chloride 103 Carbon Dioxide 32 Anion Gap 5 L BUN 35 H Creatinine 0.6 L Creat Clearance w eGFR > 60 POC Glucometer 214.96889 Random Glucose 233 H D Calcium 7.2 L Phosphorus 2.2 L Magnesium 2.4 Total Bilirubin 5.3 H AST 93 H ALT 87 H Alkaline Phosphatase 107 Total Protein 5.0 L Albumin 1.1 L 03/25/18 03/25/18 05:30 05:52 WBC RBC Hgb Hct MCV MCH MCHC RDW Plt Count MPV PTT (Actin FS) 43.1 H Sodium Potassium Chloride Carbon Dioxide Anion Gap BUN Creatinine Creat Clearance w eGFR POC Glucometer [phone] Random Glucose Calcium Phosphorus Magnesium Total Bilirubin AST ALT Alkaline Phosphatase Total Protein Albumin Active Medications Generic Name Dose Route Start Last Admin Trade Name Freq PRN Reason Stop Dose Admin Amino Acids 30 ml 03/24/18 13:00 03/25/18 09:44 Prosource No Carb Liquid Pkt PO 30 ml DAILY JUDY Administration Artificial Tears 1 drop 03/24/18 10:59 03/24/18 13:23 Artificial Tears OU 1 drop BID PRN Administration DRY EYES Chlorhexidine Gluconate 15 ml 03/13/18 10:00 03/25/18 09:44 Peridex - MM 15 ml BID JUDY Administration Chlorhexidine Gluconate 1 applic 03/13/18 22:00 03/24/18 21:24 Hibiclens For Decolonization - TP 1 applic HS JUDY Administration Heparin Sodium (Porcine) 1,000 unit 03/20/18 14:07 03/25/18 08:59 Heparin - IVPUSH 1,000 unit PRN PRN Administration Heparin Heparin Sodium (Porcine) 5,000 unit 03/20/18 14:07 Heparin - IVPUSH PRN PRN Heparin Meropenem 1 gm/ Dextrose 100 mls @ 200 mls/hr 03/19/18 18:00 03/25/18 09:44 IVPB 200 mls/hr Q8H-IV JUDY Administration HEPARIN SOD,PORK IN 0.45% NACL 25,000 units in 500 mls @ 20 mls/hr 03/20/18 14 :15 03/25/18 08:59 Heparin-1/2ns 25,000 Units/500 IVPB 1,200 units/hr TITR JUDY 24 mls/hr Administration Protocol 1,000 UNITS/HR Vancomycin HCl 1,500 mg/ 500 mls @ 250 mls/hr 03/25/18 15:00 Dextrose IVPB Q24H JUDY Protocol Potassium Phosphate 30 mm/ 260 mls @ 43.333 mls/hr 03/25/18 09:09 03/25/18 10 :43 Dextrose IVPB 03/25/18 15:08 43.333 mls/hr ONCE ONE Administration Insulin Aspart 1 vial 03/23/18 11:00 03/25/18 06:17 Novolog Vial Sliding Scale - SQ 6 units ACHS JUDY Administration Protocol Midazolam HCl 2 mg 03/21/18 12:20 03/24/18 22:31 Versed - IVPUSH 2 mg Q2H PRN Administration AGITATION Morphine Sulfate 3 mg 03/24/18 10:57 03/24/18 11:53 Morphine Sulfate IVPUSH 3 mg Q2H PRN Administration PAIN LEVEL 1 - 3 Ondansetron HCl 4 mg 03/13/18 04:30 Zofran Injection IVPUSH Q6H PRN NAUSEA Pantoprazole Sodium 40 mg 03/13/18 10:00 03/25/18 09:44 Protonix Iv IVPUSH 40 mg DAILY JUDY Administration ASSESSMENT/PLAN: 82yo relatively healthy M presented w/ SBO from an incarcerated R inguinal hernia after weight training #PULM -Acute Hypoxic Respiratory Failure, Aspiration PNA, ARDS -CXR improving -low tidal volume ventilation -Taper Fi02, Peep to keep O2 Sat >90% -keep Pplat <30 -minimize sedation to assess mental status -spontaneous breathing trials as tolerated when mental status improved #GI Incarcerated Inguinal Hernia s/p ex-lap/segmental terminal ileum resection/primary anastamosis 03/13 r/o Acalculus Cholecystitis s/p percutaneous cholecystostomy, s/p percutaneous drainage by IR 03/20 -vomited last night, had BM -Tube feeds restarted, check residuals -Zofran for nausea -IV abx Meropenem, Vancomycin -T.Bili elevation. Will consider U/S. #CV -Afib/A-flutter -rate controlled -Heparin Ggt -echo unremarkable -Fu cardio reccs -R IJ nonocclusive clot. Already on heparin ggt #Neuro -altered mental status likely from previous sedations. Critical illness polyneuropathy and myopathy -CT head without contrast ordered -will monitor #FEN -Avoid -Phosphorus repleted -Tube feeds, prosource #PPx -Protonix -Heparin ggt cont ICU monitoring Visit type - Emergency Visit Emergency Visit: Yes ED Registration Date: 03/12/18 Care time: The patient presented to the Emergency Department on the above date and was hospitalized for further evaluation of their emergent condition. - New Patient This patient is new to me today: No - Critical Care Critical Care patient: Yes Total Critical Care Time (in minutes): 40 Critical Care Statement: The care of this patient involved high complexity decision making to prevent further life threatening deterioration of the patient 's condition and/or to evaluate & treat vital organ system(s) failure or risk of failure.
--- NOTE | 2018-03-25 15:14 | PN ---
Teaching Attending Note Name of Resident: Mukul White ATTENDING PHYSICIAN STATEMENT I saw and evaluated the patient. I reviewed the resident's note and discussed the case with the resident. I agree with the resident's findings and plan as documented. SUBJECTIVE: no events over night OBJECTIVE: Intubated, opens eyes randomly.round equal pupils 2 mm in diameter, reactive to light CV: RRR. Lungs; clear anteriorly, decreased breath sounds at bases R > L Abd: + BS. mid line surgical scar . dark green liquid in LEIF drain Ext: R forearm with a streak of erythema extending to lower part or upper arm. ASSESSMENT AND PLAN: 82 y/o gentleman with h/o DJD, GERD, diverticulosis and other medical problems who presented with abd pain and was found to have SBO with bowel ischemia and developed acute resp failure and septic shock. 1- Acute hypoxic resp failure. due to severe sepsis and b/l PNA /ARDS sputum cx with multiple organisms - cont Abx , meropenem and vanco - mechanical ventilation. weaning trials 2- Septic shock. improved - cont meropenem and vanco - vanco trough on 3- Ischemic bowel and incarcerated inguinal hernia : s/p exploratory laparotomy and partial small bowel resection. 4- Possible acalculus cholecystitis : s/p cholecystostomy tube -monitor LFTS . 5- A flutter: now in sinus rhythm on tele - cont heparin gtt - rate controlled - echo reviewed. 6- R IJ thrombus /DVT: - cont heparin gtt 7- decreased level of consciousness : CT reviewed. monitor off sedation . can't do MRI on vent 8- PX: PPI and on heparin gtt
[2018-03-25] MEDS: VANCOMYCIN 1,500 MG in DEXTROSE 5%-WATER - 500 ML IVPB SCH (17:00)
--- NOTE | 2018-03-25 20:11 | PN ---
Progress Note (short form) - Note Progress Note: CC: new afib s: still poory responsive, remains intubated. head ct without acute pathology. converted to sr today. Current Medications Amino Acids (Prosource No Carb Liquid Pkt) 30 ml PO DAILY JUDY Last Admin: 03/25/18 09:44 Dose: 30 ml Artificial Tears (Artificial Tears) 1 drop OU BID PRN PRN Reason: DRY EYES Last Admin: 03/24/18 13:23 Dose: 1 drop Chlorhexidine Gluconate (Peridex -) 15 ml MM BID [facility]Y Last Admin: 03/25/18 09:44 Dose: 15 ml Chlorhexidine Gluconate (Hibiclens For Decolonization -) 1 applic TP HS [facility]Y Last Admin: 03/24/18 21:24 Dose: 1 applic Heparin Sodium (Porcine) (Heparin -) 1,000 unit IVPUSH PRN PRN PRN Reason: Heparin Last Admin: 03/25/18 17:00 Dose: 1,000 unit Heparin Sodium (Porcine) (Heparin -) 5,000 unit IVPUSH PRN PRN PRN Reason: Heparin Meropenem 1 gm/ Dextrose 100 mls @ 200 mls/hr IVPB Q8H-IV [facility] Last Admin: 03/25/18 19:32 Dose: 200 mls/hr HEPARIN SOD,PORK IN 0.45% NACL (Heparin-1/2ns 25,000 Units/500) 25,000 units in 500 mls @ 20 mls/hr IVPB TITR [facility]; Protocol Last Admin: 03/25/18 17:00 Dose: 1,300 units/hr, 26 mls/hr Vancomycin HCl 1,500 mg/ (Dextrose) 500 mls @ 250 mls/hr IVPB Q24H [facility]; Protocol Last Admin: 03/25/18 17:00 Dose: 250 mls/hr Insulin Aspart (Novolog Vial Sliding Scale -) 1 vial SQ ACHS [facility]; Protocol Last Admin: 03/25/18 18:19 Dose: 6 units Midazolam HCl (Versed -) 2 mg IVPUSH Q2H PRN PRN Reason: AGITATION Last Admin: 03/24/18 22:31 Dose: 2 mg Morphine Sulfate (Morphine Sulfate) 3 mg IVPUSH Q2H PRN PRN Reason: PAIN LEVEL 1 - 3 Last Admin: 03/24/18 11:53 Dose: 3 mg Ondansetron HCl (Zofran Injection) 4 mg IVPUSH Q6H PRN PRN Reason: NAUSEA Pantoprazole Sodium (Protonix Iv) 40 mg IVPUSH DAILY JUDY Last Admin: 03/25/18 09:44 Dose: 40 mg Vital Signs - 24 hr 03/24/18 03/24/18 03/24/18 21:18 21:20 22:00 Temperature 99.3 F Pulse Rate 86 82 Respiratory 24 24 Rate Blood Pressure 126/65 O2 Sat by Pulse Oximetry (%) 03/24/18 03/25/18 03/25/18 23:41 00:00 00:08 Temperature Pulse Rate 86 Respiratory 26 H 20 Rate Blood Pressure 116/56 O2 Sat by Pulse 97 Oximetry (%) 03/25/18 03/25/18 03/25/18 02:00 03:04 04:00 Temperature 98.4 F Pulse Rate 85 87 Respiratory 26 H 27 H 26 H Rate Blood Pressure 132/60 127/53 O2 Sat by Pulse Oximetry (%) 03/25/18 03/25/18 03/25/18 06:00 08:00 09:00 Temperature 98.8 F Pulse Rate 82 110 H Respiratory 22 36 H Rate Blood Pressure 119/56 128/69 O2 Sat by Pulse 95 95 Oximetry (%) 03/25/18 03/25/18 03/25/18 10:00 10:57 13:47 Temperature 99.2 F Pulse Rate 103 H Respiratory 36 H 27 H 26 H Rate Blood Pressure 133/64 O2 Sat by Pulse Oximetry (%) 03/25/18 03/25/18 03/25/18 14:00 16:00 16:06 Temperature 98.4 F Pulse Rate 102 H 106 H Respiratory 30 H 30 H 27 H Rate Blood Pressure 120/54 120/52 O2 Sat by Pulse Oximetry (%) 03/25/18 03/25/18 03/25/18 18:00 18:45 19:00 Temperature 99.7 F H Pulse Rate 108 H Respiratory 24 27 H Rate Blood Pressure 129/51 O2 Sat by Pulse 97 Oximetry (%) 03/25/18 03/25/18 03/25/18 20:03 20:04 20:06 Temperature 100.1 F H Pulse Rate 95 H Respiratory 24 24 Rate Blood Pressure 123/52 O2 Sat by Pulse 96 96 Oximetry (%) Intake & Output 03/23/18 03/24/18 03/25/18 03/26/18 07:59 07:59 07:59 07:59 Intake Total 2757 2025 1678 1658 Output Total 4935 3410 3320 730 Balance -2178 -1385 -1642 928 Weight 188 lb 8 oz 182 lb 5.156 oz 176 lb 5.917 oz nad no jvd minimally responsive, intubated irreg, s1s2 no mrg cta bl anteriorly, mechanical breath sounds. 1+ dependent edema bl, no c/c pos dp pt no jaundice diaphoresis abd nd pos bs CBC, BMP 03/25/18 05:30 03/25/18 05:30 tele: this morning converted to sr/sinus tach ecg: sr, nl intervals, no ischemic changes head ct: no acute pathology echo 02/2018: nl lv/rv, mild mr/tr/ar cxr: chf, slightly improved cxr 03/25: no sig change non-occlusive peripheral thrombus in the right internal jugular vein. otherwise no RUE thrombosis. RUE lipoma. a/p: 82 m hx gerd, bph, here with abd pain/sepsis - found to have sbo, now s/p OR hospital course c/b new afib. septic shock: -remains intubated, but now off levophed. bp stable. cont abx per ID - s/p IV lasix 03/21, 03/22, 03/24 - net negative 4L today 03/23, cxr slightly improved. hold lasix today and reassess need again tomorrow. - 03/25: holding lasix today. new pafib --> conversion to sr: -new onset here -rate controlled w/o meds. 03/25 converted to sr. -echo unremarkable -chadsvasc warrants ac. on hep gtt -cont tele sbo: -s/p surgery 03/13 -also with gall stones and s/p IR drain 03/20
--- NOTE | 2018-03-25 21:30 | PN ---
Progress Note, Physician History of Present Illness: continues to improve in the room more awake wbc decreasing remaining afebrile - Current Medication List Current Medications: Active Medications Amino Acids (Prosource No Carb Liquid Pkt) 30 ml PO DAILY JUDY Last Admin: 03/25/18 09:44 Dose: 30 ml Artificial Tears (Artificial Tears) 1 drop OU BID PRN PRN Reason: DRY EYES Last Admin: 03/24/18 13:23 Dose: 1 drop Chlorhexidine Gluconate (Peridex -) 15 ml MM BID JUDY Last Admin: 03/25/18 09:44 Dose: 15 ml Chlorhexidine Gluconate (Hibiclens For Decolonization -) 1 applic TP HS JUDY Last Admin: 03/24/18 21:24 Dose: 1 applic Heparin Sodium (Porcine) (Heparin -) 1,000 unit IVPUSH PRN PRN PRN Reason: Heparin Last Admin: 03/25/18 17:00 Dose: 1,000 unit Heparin Sodium (Porcine) (Heparin -) 5,000 unit IVPUSH PRN PRN PRN Reason: Heparin Meropenem 1 gm/ Dextrose 100 mls @ 200 mls/hr IVPB Q8H-IV [facility]Y Last Admin: 03/25/18 19:32 Dose: 200 mls/hr HEPARIN SOD,PORK IN 0.45% NACL (Heparin-1/2ns 25,000 Units/500) 25,000 units in 500 mls @ 20 mls/hr IVPB TITR [facility]; Protocol Last Admin: 03/25/18 17:00 Dose: 1,300 units/hr, 26 mls/hr Vancomycin HCl 1,500 mg/ (Dextrose) 500 mls @ 250 mls/hr IVPB Q24H [facility]; Protocol Last Admin: 03/25/18 17:00 Dose: 250 mls/hr Insulin Aspart (Novolog Vial Sliding Scale -) 1 vial SQ ACHS [facility]; Protocol Last Admin: 03/25/18 21:21 Dose: 4 units Midazolam HCl (Versed -) 2 mg IVPUSH Q2H PRN PRN Reason: AGITATION Last Admin: 03/24/18 22:31 Dose: 2 mg Morphine Sulfate (Morphine Sulfate) 3 mg IVPUSH Q2H PRN PRN Reason: PAIN LEVEL 1 - 3 Last Admin: 03/24/18 11:53 Dose: 3 mg Ondansetron HCl (Zofran Injection) 4 mg IVPUSH Q6H PRN PRN Reason: NAUSEA Pantoprazole Sodium (Protonix Iv) 40 mg IVPUSH DAILY JUDY Last Admin: 03/25/18 09:44 Dose: 40 mg - Objective Vital Signs: Vital Signs Temperature 100.1 F H 03/25/18 20:06 Pulse Rate 95 H 03/25/18 20:06 Respiratory Rate 24 03/25/18 20:06 Blood Pressure 123/52 03/25/18 20:06 O2 Sat by Pulse Oximetry (%) 96 03/25/18 20:04 Constitutional: Yes: No Distress, Calm Cardiovascular: Yes: Regular Rate and Rhythm Respiratory: Yes: Intubated, Mechanically Ventilated Gastrointestinal: Yes: Normal Bowel Sounds, Soft Genitourinary: Yes: Scott Present Extremities: Yes: WNL Edema: LLE: Trace, RLE: Trace Wound/Incision: Yes: Clean/Dry Neurological: Yes: Other Psychiatric: Yes: Other Labs: CBC, BMP 03/25/18 05:30 03/25/18 05:30 INR, PTT INR 1.39 (0.82-1.09) H 03/20/18 05:55 Assessment/Plan Problem List - Problems (1) Strangulated inguinal hernia Pulmonary evaluation - weaning today? GI Evaluation - Tbili 3.5, 3.6 BP goal MAP 65-70, has a stapled small bowel anastomosis avoid lwo flow states will follow Code(s): K40.30 - UNIL INGUINAL HERNIA, W OBST, W/O GANGR, NOT SPCF RECUR (2) Incarcerated left inguinal hernia Code(s): K40.30 - UNIL INGUINAL HERNIA, W OBST, W/O GANGR, NOT SPCF RECUR (3) BPH (benign prostatic hyperplasia) Code(s): N40.0 - BENIGN PROSTATIC HYPERPLASIA WITHOUT LOWER URINRY TRACT SYMP Qualifiers: Lower urinary tract symptom presence: symptoms present Lower urinary tract symptom detail: urinary frequency Qualified Code(s): N40.1 - Benign prostatic hyperplasia with lower urinary tract symptoms; R35.0 - Frequency of micturition ; R35.0 - Frequency of micturition (4) DDD (degenerative disc disease), cervical Code(s): M50.30 - OTHER CERVICAL DISC DEGENERATION, UNSP CERVICAL REGION (5) SBO (small bowel obstruction) Code(s): K56.609 - UNSP INTESTNL OBST, UNSP TO PARTIAL VERSUS COMPLETE OBST (6) Aspiration pneumonia of both lower lobes due to gastric secretions Code(s): J69.0 - PNEUMONITIS DUE TO INHALATION OF FOOD AND VOMIT r/o acalculus choley plan continue abx stop zosyn monitor for fevers monitor vent setting rest as per icu monitor bilrubin levels increase dose of vanco to 1500 aggressive chest pt continue suctioning improving if patient continues to remain stable will deescalte vanco monitor wbc cc 40 min
[2018-03-26] MEDS ORDERED: PT OWN MED DRAWER 7, Y5N ONE ×4 (01:38→18:35)
[2018-03-26] MEDS: MEROPENEM 1 GM in DEXTROSE 5%-WATER 100 ML IVPB SCH ×3 (01:39→18:37)
[2018-03-26] MEDS: INSULIN SLIDING SCALE (NOVOLOG) 1 VIAL SQ SCH ×4 (06:01→22:06)
[2018-03-26 06:22] LABS: HEMATOCRIT 34.9 % (35.4-49); HEMOGLOBIN 11.6 GM/dL (11.7-16.9); MCH 29.9 pg (25.7-33.7); MCHC 33.3 g/dl (32.0-35.9); MEAN PLT VOLUME 10.6 fl (7.5-11.1); PLATELET COUNT 372 K/MM3 (134-434); RBC 3.88 M/mm3 (4.00-5.60); RDW 13.9 % (11.9-15.9); WHITE BLOOD COUNT 14.4 K/mm3 (4.0-10.0)
[2018-03-26 06:59] LABS: CHLORIDE 104 mmol/L (98-107); SODIUM 139 mmol/L (136-145)
--- NOTE | 2018-03-26 08:31 | PN ---
Physical Exam: SUBJECTIVE: Afebrile overnight with no events on monitors. Unfortunately while examining pt he has a temperature of 101.4. Otherwise pt still remains off of sedation and continues to be sedated. OBJECTIVE: Vital Signs Period Temp Pulse Resp BP Sys/Ceballos Pulse Ox Last 24 Hr 98.4 F-100.1 F 95-108 22-36 120-136/51-64 95-97 GENERAL: NAD, intubated, opens eyes and tracks around room, no commands listened to HEENT: KITTY, NG in place, dry mucous membranes, ETT noted Neck: L IJ line site C/D/I, no JVD LUNGS: Coarse b/l breath sounds at bases. AC mode: TV 420, PEEP 5, FiO2 40%, RR 12 HEART: RRR, S1, S2 without murmur ABDOMEN: Soft, nondistended, nontender, Midline incision C/D/I, C-tube draining dark fluid w/o purulence. EXTREMITIES: 2+ DP pulses, warm, 1+ ankle and upper extremity edema noted SKIN: Warm, dry, no rash or lesions currently Laboratory Results - last 24 hr 03/24/18 03/24/18 03/25/18 12:20 22:06 13:54 WBC RBC Hgb Hct MCV MCH MCHC RDW Plt Count MPV PTT (Actin FS) Sodium Potassium Chloride POC Glucometer 229.05345 232.49381 320.01497 03/25/18 03/25/18 03/25/18 14:50 18:10 21:14 WBC RBC Hgb Hct MCV MCH MCHC RDW Plt Count MPV PTT (Actin FS) 48.2 H Sodium Potassium Chloride POC Glucometer 269.04586 236.96904 03/25/18 03/26/18 03/26/18 22:50 05:20 05:20 WBC 14.4 H RBC 3.88 L Hgb 11.6 L D Hct 34.9 L MCV 90.0 MCH 29.9 MCHC 33.3 RDW 13.9 Plt Count 372 MPV 10.6 PTT (Actin FS) 54.3 H Sodium 139 Potassium 4.0 Chloride 104 POC Glucometer 03/26/18 03/26/18 05:20 05:48 WBC RBC Hgb Hct MCV MCH MCHC RDW Plt Count MPV PTT (Actin FS) 55.1 H Sodium Potassium Chloride POC Glucometer 241.07344 Active Medications Generic Name Dose Route Start Last Admin Trade Name Freq PRN Reason Stop Dose Admin Amino Acids 30 ml 03/24/18 13:00 03/25/18 09:44 Prosource No Carb Liquid Pkt PO 30 ml DAILY JUDY Administration Artificial Tears 1 drop 03/24/18 10:59 03/24/18 13:23 Artificial Tears OU 1 drop BID PRN Administration DRY EYES Chlorhexidine Gluconate 15 ml 03/13/18 10:00 03/26/18 00:00 Peridex - MM 15 ml BID JUDY Administration Chlorhexidine Gluconate 1 applic 03/13/18 22:00 03/26/18 00:00 Hibiclens For Decolonization - TP 1 applic HS JUDY Administration Heparin Sodium (Porcine) 1,000 unit 03/20/18 14:07 03/25/18 17:00 Heparin - IVPUSH 1,000 unit PRN PRN Administration Heparin Heparin Sodium (Porcine) 5,000 unit 03/20/18 14:07 Heparin - IVPUSH PRN PRN Heparin Meropenem 1 gm/ Dextrose 100 mls @ 200 mls/hr 03/19/18 18:00 03/26/18 01:39 IVPB 200 mls/hr Q8H-IV JUDY Administration HEPARIN SOD,PORK IN 0.45% NACL 25,000 units in 500 mls @ 20 mls/hr 03/20/18 14 :15 03/25/18 17:00 Heparin-1/2ns 25,000 Units/500 IVPB 1,300 units/hr TITR JUDY 26 mls/hr Administration Protocol 1,000 UNITS/HR Vancomycin HCl 1,500 mg/ 500 mls @ 250 mls/hr 03/25/18 15:00 03/25/18 17:00 Dextrose IVPB 250 mls/hr Q24H JUDY Administration Protocol Insulin Aspart 1 vial 03/23/18 11:00 03/26/18 06:01 Novolog Vial Sliding Scale - SQ 4 units ACHS JUDY Administration Protocol Midazolam HCl 2 mg 03/21/18 12:20 03/24/18 22:31 Versed - IVPUSH 2 mg Q2H PRN Administration AGITATION Morphine Sulfate 3 mg 03/24/18 10:57 03/24/18 11:53 Morphine Sulfate IVPUSH 3 mg Q2H PRN Administration PAIN LEVEL 1 - 3 Ondansetron HCl 4 mg 03/13/18 04:30 Zofran Injection IVPUSH Q6H PRN NAUSEA Pantoprazole Sodium 40 mg 03/13/18 10:00 03/25/18 09:44 Protonix Iv IVPUSH 40 mg DAILY JUDY Administration ASSESSMENT/PLAN: 1) Acute hypoxic respiratory failure --Prior ARDS picture now slightly improving --CXR improving today; may lag a couple of days though so cautious about finding --Vent settings decreasing as tolerated --Head CT negative --EMG performed today with preliminary report of peripheral nerve EMG shows findings consistent with ICU neuropathy! --? need possible LTAC in future --Maintain SpO2 >90% 2) Septic shock 2/2 to bowel ischemia in addition to aspiration PNA --Remains off pressors --ID on board --Meropenem day 7 to continue --Vancomycin 1.25gm qDaily --Will keep on board due to fever spike this morning 3) Elevated LFTs --Bilirubin downtrending today --C-tube in place draining bile --OUtput of 80cc today; 4) Atrial flutter --Cardiology consulted --Heparin gtt remains; monitor aPtt --Echo unremarkable FEN: Fluids: Avoid Electrolyte abnormalities: Hypophosphatemia; (repleted); pseudohypocalcemia Nutrition: NGT feeds ongoing; rate 40 with prosource on board PPX: DVT - Heparin gtt on already GI - Protonix 40mg IVP daily Dispo: Continue ICU monitoring Case discussed with Dr. Mati White, DO - IM PGY-1 Visit type - Emergency Visit Emergency Visit: No - New Patient This patient is new to me today: No - Critical Care Critical Care patient: Yes Total Critical Care Time (in minutes): 37 Critical Care Statement: The care of this patient involved high complexity decision making to prevent further life threatening deterioration of the patient 's condition and/or to evaluate & treat vital organ system(s) failure or risk of failure.
[2018-03-26 08:47] LABS: ALK PHOS 118 U/L (45-117); ANION GAP 4 (8-16); BILIRUBIN,TOTAL 4.2 mg/dL (0.2-1.0); CALCIUM 7.1 mg/dL (8.5-10.1); CO2 31 mmol/L (21-32); CREATININE 0.5 mg/dL (0.7-1.3); GLUCOSE,RANDOM 217 mg/dL (74-106); PHOSPHOROUS 2.2 mg/dL (2.5-4.9); SGOT/AST 91 U/L (15-37); SGPT/ALT 83 U/L (12-78); TOT PROT 4.9 g/dl (6.4-8.2)
[2018-03-26] MEDS: AMINO ACIDS/PROTEIN HYDROLYS 30 ML LIQUID.PKT PO SCH (10:35)
[2018-03-26] MEDS: PANTOPRAZOLE SODIUM 40 MG VIAL IVPUSH SCH (10:35)
[2018-03-26] MEDS: CHLORHEXIDINE GLUCONATE 0.12% 15ML CUP MM SCH ×3 (10:36→21:57)
--- NOTE | 2018-03-26 11:56 | PN ---
Teaching Attending Note Name of Resident: Mukul White ATTENDING PHYSICIAN STATEMENT I saw and evaluated the patient. I reviewed the resident's note and discussed the case with the resident. I agree with the resident's findings and plan as documented. SUBJECTIVE: No events over night . OBJECTIVE: Intubated, opens eyes to verbal commands.round equal pupils 2 mm in diameter, reactive to light . does not follow other commands CV: RRR. Lungs; clear anteriorly, decreased breath sounds at bases Abd: + BS. mid line surgical wound with panda . dark green liquid in RUQ LEIF drain Ext: 2+ edema on LE ASSESSMENT AND PLAN: Unfortunate 82 y/o gentleman with h/o DJD, GERD, diverticulosis and other medical problems who presented with abd pain and was found to have SBO with bowel ischemia , and incarcerated hernia and developed acute resp failure and septic shock. 1- Acute hypoxic resp failure. due to severe sepsis and b/l PNA /ARDS cxray reviewed - cont Abx , meropenem and vanco - mechanical ventilation. weaning trials 2- Septic shock. improved - cont meropenem and vanco - vanco dose increased - next vanco trough on 03/28 at 14:30 3- Ischemic bowel and incarcerated inguinal hernia : s/p exploratory laparotomy and partial small bowel resection. + bowel sounds and a BM this am 4- Possible acalculus cholecystitis : s/p cholecystostomy tube -monitor LFTS .( stable ) 5-new onset A flutter/A fib : now in sinus rhythm. Likely stress induced but can't r/o PAF - cont heparin gtt . will switch to po AC once no further surgical intervention is indicated or planned - rate controlled 6- R IJ thrombus /DVT: - cont heparin gtt 7- Decreased level of consciousness : no CT changes. more awake tomoday monitor off sedation bring hearing aids form home 8- PX: PPI and on heparin gtt
--- NOTE | 2018-03-26 12:11 | PN ---
Teaching Attending Note Name of Resident: Luke Drake ATTENDING PHYSICIAN STATEMENT I saw and evaluated the patient. I reviewed the resident's note and discussed the case with the resident. I agree with the resident's findings and plan as documented. SUBJECTIVE: Pt seen and examined in the ICU. Remains intubated, poorly responsive. Opens eyes but not interactive. OBJECTIVE: Vital Signs Period Temp Pulse Resp BP Sys/Ceballos Pulse Ox Last 24 Hr 98.4 F-100.1 F 95-108 22-30 120-136/51-62 95-97 Intake & Output 03/23/18 03/24/18 03/25/18 03/26/18 23:59 23:59 23:59 23:59 Intake Total 2441 1131 2542 1012 Output Total 3455 3595 2130 740 Balance -1014 -5504 412 272 Weight 85.502 kg 82.7 kg 80 kg 79.6 kg Gen: intubated, poorly responsive Heart: RRR Lung: scattered rhonchi Abd: soft, nontender Ext: + dependent edema CBC, BMP 03/26/18 05:20 03/26/18 05:20 Active Medications Amino Acids (Prosource No Carb Liquid Pkt) 30 ml PO DAILY JUDY Last Admin: 03/26/18 10:35 Dose: 30 ml Artificial Tears (Artificial Tears) 1 drop OU BID PRN PRN Reason: DRY EYES Last Admin: 03/24/18 13:23 Dose: 1 drop Chlorhexidine Gluconate (Peridex -) 15 ml MM BID JUDY Last Admin: 03/26/18 10:36 Dose: 15 ml Chlorhexidine Gluconate (Hibiclens For Decolonization -) 1 applic TP HS JUDY Last Admin: 03/26/18 00:00 Dose: 1 applic Furosemide (Lasix Injection -) 40 mg IVPUSH ONCE ONE Stop: 03/26/18 12:31 Heparin Sodium (Porcine) (Heparin -) 1,000 unit IVPUSH PRN PRN PRN Reason: Heparin Last Admin: 03/25/18 17:00 Dose: 1,000 unit Heparin Sodium (Porcine) (Heparin -) 5,000 unit IVPUSH PRN PRN PRN Reason: Heparin Meropenem 1 gm/ Dextrose 100 mls @ 200 mls/hr IVPB Q8H-IV JUDY Last Admin: 05/31/18 10:35 Dose: 200 mls/hr HEPARIN SOD,PORK IN 0.45% NACL (Heparin-1/2ns 25,000 Units/500) 25,000 units in 500 mls @ 20 mls/hr IVPB TITR [facility]; Protocol Last Admin: 03/25/18 17:00 Dose: 1,300 units/hr, 26 mls/hr Vancomycin HCl 1,500 mg/ (Dextrose) 500 mls @ 250 mls/hr IVPB Q24H [facility]; Protocol Last Admin: 03/25/18 17:00 Dose: 250 mls/hr Insulin Aspart (Novolog Vial Sliding Scale -) 1 vial SQ ACHS [facility]; Protocol Last Admin: 03/26/18 06:01 Dose: 4 units Midazolam HCl (Versed -) 2 mg IVPUSH Q2H PRN PRN Reason: AGITATION Last Admin: 03/24/18 22:31 Dose: 2 mg Morphine Sulfate (Morphine Sulfate) 3 mg IVPUSH Q2H PRN PRN Reason: PAIN LEVEL 1 - 3 Last Admin: 03/24/18 11:53 Dose: 3 mg Ondansetron HCl (Zofran Injection) 4 mg IVPUSH Q6H PRN PRN Reason: NAUSEA Pantoprazole Sodium (Protonix Iv) 40 mg IVPUSH DAILY [facility] Last Admin: 03/26/18 10:35 Dose: 40 mg ASSESSMENT AND PLAN: Acute Hypoxic Respiratory Failure Pneumonia - ?Aspiration ARDS resolving Incarcerated Inguinal Hernia s/p ex-lap/segmental terminal ileum resection/primary anastamosis 03/13 r/o Acalculus Cholecystitis s/p percutaneous cholecystostomy Septic Shock resolving Acute Kidney Injury improving Lactic Acidosis resolved New onset Paroxysmal Atrial Fibrillation Diverticulosis BPH r/o Critical Illness Polyneuropathy/Myopathy - antibiotics per ID - rate controlled - continue anticoagulation - dose lasix today - monitor urine output, creatinine - low tidal volume ventilation - keep Pplat <30 - taper FiO2, PEEP to keep SpO2 >90% - minimize sedation to assess mental status - spontaneous breathing trials as tolerated but would not extubate until mental status better - physiatry eval for EMG to rule out critical illness polyneuropathy/myopathy - enteral feeds - DVT/GI prophylaxis - continue ICU monitoring - discussed with family at bedside potential tracheostomy if unable to wean, likely by early next week critical care time spent in reviewing chart, evaluating patient and formulating plan 35 min
[2018-03-26] MEDS ORDERED: FUROSEMIDE 40 MG/4 ML INJECTABLE VIAL IVPUSH ONE (12:30)
[2018-03-26 12:32] LABS: BLOOD UREA NITROGEN 31 mg/dL (7-18)
--- NOTE | 2018-03-26 13:29 | PN ---
Physical Exam: SUBJECTIVE: Patient seen and examined. Patient more awake today but unresponsive to commands. Tmax 100.1 OBJECTIVE: Vital Signs Period Temp Pulse Resp BP Sys/Ceballos Pulse Ox Last 24 Hr 98.4 F-100.1 F 95-108 20-30 120-136/51-62 95-97 GENERAL: intubated, opens eyes, awake, no responsive or following commands. EYES: PERRL, sclera anicteric ENT: dry mucous membranes. Neck: R IJ line site C/D/I LUNGS: scattered rhonchi HEART: Regular rate and rhythm, S1, S2 without murmur, rub or gallop. ABDOMEN: c-tube, +BS EXTREMITIES: 2+ pulses throughout. RUE swelling and erythema. Laboratory Results - last 24 hr 03/24/18 03/24/18 03/25/18 12:20 22:06 13:54 WBC RBC Hgb Hct MCV MCH MCHC RDW Plt Count MPV PTT (Actin FS) Sodium Potassium Chloride Carbon Dioxide Anion Gap BUN Creatinine Creat Clearance w eGFR POC Glucometer [phone] [phone] Random Glucose Calcium Phosphorus Magnesium Total Bilirubin AST ALT Alkaline Phosphatase Total Protein Albumin 03/25/18 03/25/18 03/25/18 14:50 18:10 21:14 WBC RBC Hgb Hct MCV MCH MCHC RDW Plt Count MPV PTT (Actin FS) 48.2 H Sodium Potassium Chloride Carbon Dioxide Anion Gap BUN Creatinine Creat Clearance w eGFR POC Glucometer [phone] Random Glucose Calcium Phosphorus Magnesium Total Bilirubin AST ALT Alkaline Phosphatase Total Protein Albumin 03/25/18 03/26/18 03/26/18 22:50 05:20 05:20 WBC 14.4 H RBC 3.88 L Hgb 11.6 L D Hct 34.9 L MCV 90.0 MCH 29.9 MCHC 33.3 RDW 13.9 Plt Count 372 MPV 10.6 PTT (Actin FS) 54.3 H Sodium 139 Potassium 4.0 Chloride 104 Carbon Dioxide 31 Anion Gap 4 L BUN 31 H Creatinine 0.5 L Creat Clearance w eGFR > 60 POC Glucometer Random Glucose 217 H Calcium 7.1 L Phosphorus 2.2 L Magnesium 2.0 Total Bilirubin 4.2 H D AST 91 H ALT 83 H Alkaline Phosphatase 118 H Total Protein 4.9 L Albumin 1.0 L 03/26/18 03/26/18 03/26/18 05:20 05:48 12:35 WBC RBC Hgb Hct MCV MCH MCHC RDW Plt Count MPV PTT (Actin FS) 55.1 H Sodium Potassium Chloride Carbon Dioxide Anion Gap BUN Creatinine Creat Clearance w eGFR POC Glucometer [phone] Random Glucose Calcium Phosphorus Magnesium Total Bilirubin AST ALT Alkaline Phosphatase Total Protein Albumin Active Medications Generic Name Dose Route Start Last Admin Trade Name Freq PRN Reason Stop Dose Admin Amino Acids 30 ml 03/24/18 13:00 03/26/18 10:35 Prosource No Carb Liquid Pkt PO 30 ml DAILY JUDY Administration Artificial Tears 1 drop 03/24/18 10:59 03/24/18 13:23 Artificial Tears OU 1 drop BID PRN Administration DRY EYES Chlorhexidine Gluconate 15 ml 03/13/18 10:00 03/26/18 10:36 Peridex - MM 15 ml BID JUDY Administration Chlorhexidine Gluconate 1 applic 03/13/18 22:00 03/26/18 00:00 Hibiclens For Decolonization - TP 1 applic HS JUDY Administration Heparin Sodium (Porcine) 1,000 unit 03/20/18 14:07 03/25/18 17:00 Heparin - IVPUSH 1,000 unit PRN PRN Administration Heparin Heparin Sodium (Porcine) 5,000 unit 03/20/18 14:07 Heparin - IVPUSH PRN PRN Heparin Meropenem 1 gm/ Dextrose 100 mls @ 200 mls/hr 03/19/18 18:00 03/26/18 10:35 IVPB 200 mls/hr Q8H-IV JUDY Administration HEPARIN SOD,PORK IN 0.45% NACL 25,000 units in 500 mls @ 20 mls/hr 03/20/18 14 :15 03/25/18 17:00 Heparin-1/2ns 25,000 Units/500 IVPB 1,300 units/hr TITR JUDY 26 mls/hr Administration Protocol 1,000 UNITS/HR Vancomycin HCl 1,500 mg/ 500 mls @ 250 mls/hr 03/25/18 15:00 03/25/18 17:00 Dextrose IVPB 250 mls/hr Q24H JUDY Administration Protocol Insulin Aspart 1 vial 03/23/18 11:00 03/26/18 12:40 Novolog Vial Sliding Scale - SQ 6 units ACHS JUDY Administration Protocol Midazolam HCl 2 mg 03/21/18 12:20 03/24/18 22:31 Versed - IVPUSH 2 mg Q2H PRN Administration AGITATION Morphine Sulfate 3 mg 03/24/18 10:57 03/24/18 11:53 Morphine Sulfate IVPUSH 3 mg Q2H PRN Administration PAIN LEVEL 1 - 3 Ondansetron HCl 4 mg 03/13/18 04:30 Zofran Injection IVPUSH Q6H PRN NAUSEA Pantoprazole Sodium 40 mg 03/13/18 10:00 03/26/18 10:35 Protonix Iv IVPUSH 40 mg DAILY JUDY Administration ASSESSMENT/PLAN: 82yo relatively healthy M presented w/ SBO from an incarcerated R inguinal hernia after weight training #PULM -Acute Hypoxic Respiratory Failure, Aspiration PNA, ARDS -low tidal volume ventilation -Taper Fi02, Peep to keep O2 Sat >90% -keep Pplat <30 -minimize sedation to assess mental status -spontaneous breathing trials as tolerated when mental status improved -tolerating weaning trials but cannot extubate due to mental status. -discussed with family the possibility of trach next week. -1x dose lasix 40mg #GI Incarcerated Inguinal Hernia s/p ex-lap/segmental terminal ileum resection/primary anastamosis 03/13 r/o Acalculus Cholecystitis s/p percutaneous cholecystostomy, s/p percutaneous drainage by IR 03/20 -Tube feeds -Zofran for nausea -IV abx Meropenem, Vancomycin -monitor LFTs #CV -Afib/A-flutter -sinus rhythm today -rate controlled -Heparin Ggt -echo unremarkable -Fu cardio reccs -R IJ nonocclusive clot. Already on heparin ggt #Neuro -altered mental status likely from previous sedations. Critical illness polyneuropathy and myopathy -physiatry eval for EMG to rule out critical illness polyneuropathy/myopathy -CT head unremarkable -will monitor #FEN -Avoid -Replete as needed -Tube feeds, prosource #PPx -Protonix -Heparin ggt cont ICU monitoring Visit type - Emergency Visit Emergency Visit: Yes ED Registration Date: 03/12/18 Care time: The patient presented to the Emergency Department on the above date and was hospitalized for further evaluation of their emergent condition. - New Patient This patient is new to me today: No - Critical Care Critical Care patient: Yes Total Critical Care Time (in minutes): 40 Critical Care Statement: The care of this patient involved high complexity decision making to prevent further life threatening deterioration of the patient 's condition and/or to evaluate & treat vital organ system(s) failure or risk of failure.
[2018-03-26] MEDS: VANCOMYCIN 1,500 MG in DEXTROSE 5%-WATER - 500 ML IVPB SCH (14:27)
--- NOTE | 2018-03-26 16:44 | PN ---
Progress Note, Physician History of Present Illness: stable emg being done patient opening eyes seems to track wbc stable sill intubated - Current Medication List Current Medications: Active Medications Amino Acids (Prosource No Carb Liquid Pkt) 30 ml PO DAILY JUDY Last Admin: 03/26/18 10:35 Dose: 30 ml Artificial Tears (Artificial Tears) 1 drop OU BID PRN PRN Reason: DRY EYES Last Admin: 03/24/18 13:23 Dose: 1 drop Chlorhexidine Gluconate (Peridex -) 15 ml MM BID JUDY Last Admin: 03/26/18 10:36 Dose: 15 ml Chlorhexidine Gluconate (Hibiclens For Decolonization -) 1 applic TP HS JUDY Last Admin: 03/26/18 00:00 Dose: 1 applic Heparin Sodium (Porcine) (Heparin -) 1,000 unit IVPUSH PRN PRN PRN Reason: Heparin Last Admin: 03/25/18 17:00 Dose: 1,000 unit Heparin Sodium (Porcine) (Heparin -) 5,000 unit IVPUSH PRN PRN PRN Reason: Heparin Meropenem 1 gm/ Dextrose 100 mls @ 200 mls/hr IVPB Q8H-IV JUDY Last Admin: 03/26/18 10:35 Dose: 200 mls/hr HEPARIN SOD,PORK IN 0.45% NACL (Heparin-1/2ns 25,000 Units/500) 25,000 units in 500 mls @ 20 mls/hr IVPB TITR JUDY; Protocol Last Admin: 03/25/18 17:00 Dose: 1,300 units/hr, 26 mls/hr Vancomycin HCl 1,500 mg/ (Dextrose) 500 mls @ 250 mls/hr IVPB Q24H JUDY; Protocol Last Admin: 03/26/18 14:27 Dose: 250 mls/hr Insulin Aspart (Novolog Vial Sliding Scale -) 1 vial SQ ACHS [facility]; Protocol Last Admin: 03/26/18 12:40 Dose: 6 units Midazolam HCl (Versed -) 2 mg IVPUSH Q2H PRN PRN Reason: AGITATION Last Admin: 03/24/18 22:31 Dose: 2 mg Morphine Sulfate (Morphine Sulfate) 3 mg IVPUSH Q2H PRN PRN Reason: PAIN LEVEL 1 - 3 Last Admin: 03/24/18 11:53 Dose: 3 mg Ondansetron HCl (Zofran Injection) 4 mg IVPUSH Q6H PRN PRN Reason: NAUSEA Pantoprazole Sodium (Protonix Iv) 40 mg IVPUSH DAILY JUDY Last Admin: 03/26/18 10:35 Dose: 40 mg - Objective Vital Signs: Vital Signs Temperature 99.2 F 03/26/18 16:04 Pulse Rate 104 H 03/26/18 16:04 Respiratory Rate 27 H 03/26/18 16:16 Blood Pressure 134/64 03/26/18 16:04 O2 Sat by Pulse Oximetry (%) 95 03/26/18 08:00 Constitutional: Yes: Other Cardiovascular: Yes: Regular Rate and Rhythm, Other Respiratory: Yes: Intubated, Mechanically Ventilated Gastrointestinal: Yes: Normal Bowel Sounds, Soft Musculoskeletal: Yes: WNL Extremities: Yes: WNL Edema: LLE: Trace, RLE: Trace Neurological: Yes: Other Labs: CBC, BMP 03/26/18 05:20 03/26/18 05:20 INR, PTT INR 1.39 (0.82-1.09) H 03/20/18 05:55 Assessment/Plan Problem List - Problems (1) Strangulated inguinal hernia Pulmonary evaluation - weaning today? GI Evaluation - Tbili 3.5, 3.6 BP goal MAP 65-70, has a stapled small bowel anastomosis avoid lwo flow states will follow Code(s): K40.30 - UNIL INGUINAL HERNIA, W OBST, W/O GANGR, NOT SPCF RECUR (2) Incarcerated left inguinal hernia Code(s): K40.30 - UNIL INGUINAL HERNIA, W OBST, W/O GANGR, NOT SPCF RECUR (3) BPH (benign prostatic hyperplasia) Code(s): N40.0 - BENIGN PROSTATIC HYPERPLASIA WITHOUT LOWER URINRY TRACT SYMP Qualifiers: Lower urinary tract symptom presence: symptoms present Lower urinary tract symptom detail: urinary frequency Qualified Code(s): N40.1 - Benign prostatic hyperplasia with lower urinary tract symptoms; R35.0 - Frequency of micturition ; R35.0 - Frequency of micturition (4) DDD (degenerative disc disease), cervical Code(s): M50.30 - OTHER CERVICAL DISC DEGENERATION, UNSP CERVICAL REGION (5) SBO (small bowel obstruction) Code(s): K56.609 - UNSP INTESTNL OBST, UNSP TO PARTIAL VERSUS COMPLETE OBST (6) Aspiration pneumonia of both lower lobes due to gastric secretions Code(s): J69.0 - PNEUMONITIS DUE TO INHALATION OF FOOD AND VOMIT r/o acalculus choley plan continue abx monitor vent setting rest as per icu aggressive chest pt continue suctioning improving monitor wbc cc 40 min
--- NOTE | 2018-03-26 18:05 | CONS ---
PHYSICAL MEDICINE REHABILITATION AND ELECTRODIAGNOSTIC CONSULTATION DATE OF CONSULTATION AND ELECTRODIAGNOSTIC STUDY: 03/26/2018 HISTORY OF PRESENT ILLNESS: The patient is an 82-year-old man who was admitted on March 12 and subsequently was taken to the operating room for an exploratory laparotomy and resection of the terminal ileum after he was found to have an incarcerated hernia. His hospital course has been complicated by sepsis, respiratory failure , and he is currently in the ICU. He is unable to move his upper or lower extremities except for perhaps a little bit of toe movement which it is uncertain whether this is spontaneous. Patient opens his eyes but is not able to follow any commands. He slightly reportedly tracks per the physical therapist but has flaccid paralysis or near paralysis of the upper and lower limbs. CT of the head on March 25 showed no acute intracranial pathology. Most recent blood work showed WBC 14.4, hemoglobin 11.6, platelet count 372; BUN 35, creatinine 0.6; sodium 140, potassium 4.1, chloride 103, CO2 of 31. Patient had a slight elevation of AST and ALT. Because of the ongoing weakness, I was asked to see the patient in regards to electrodiagnostic evaluation to assess for possible critical illness myopathy versus critical illness polyneuropathy. Other diagnoses include ARDS; resolving pneumonia, possibly aspiration; acute hypoxic respiratory failure; benign prostatic hypertrophy; new-onset paroxysmal atrial fibrillation; acute kidney injury, improving. PAST MEDICAL AND SURGICAL HISTORY: Taken from his intake as the patient is not able to answer any questions at this time, mainly significant for cervical degenerative disk disease, gastroesophageal reflux disease, benign prostatic hypertrophy, diverticulosis, and hemorrhoids, possible umbilical hernia repair. SOCIAL HISTORY: Lives with his . Premorbidly completely independent. 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 Unlimited exercise tolerance prior to admission. No tobacco. No alcohol. FAMILY HISTORY: Noncontributory. ALLERGIES: FISH-CONTAINING PRODUCTS but no known drug allergies. REVIEW OF SYSTEMS: Impossible due to the patient's mental status. PHYSICAL EXAMINATION: General: Patient gazes to the right. He does track slightly with his eyes, but he is intubated and otherwise nonresponsive. Once when asked to move his toes, his toes did move after a delay. It is uncertain whether this was spontaneous or volitional. He has flaccid paralysis of the upper and probably the lower. Again, his toes and foot move slightly. He has depressed reflexes, but he does seem to grimace to pinprick distally in the lower extremities. Again, this is uncertain whether he is struggling with respiration. He does have some edema, more in the upper than the lower extremities, +1 to +2 in the uppers and trace to +1 in the lower limbs. Skin: No diffuse rash. Difficult to assess for atrophy. No definite profound atrophy. RESULTS OF EMG NERVE CONDUCTION STUDIES OF THE UPPER AND LOWER EXTREMITIES: Please refer to report for details. OVERALL IMPRESSION: 1. Patient has lower amplitude motor conduction studies with relatively preserved sensory amplitude conduction studies and abundant muscle membrane instability, most consistent with critical illness polyneuropathy. 2. Preserved conduction velocities and distal latencies reveal no evidence of any demyelinating polyneuropathy. 3. With inability to recruit motor units and cannot entirely rule out some component of axonal polyneuropathy but doubt this given the fairly well-preserved sensory nerve action potentials despite edema. 4. Tetraplegia. 5. Acute hypoxic respiratory failure. 6. Status post sepsis. 7. Status post pneumonia. 8. Acute respiratory distress syndrome, improving. 9. Acute kidney injury, improving. 10. Exploratory laparotomy and resection of terminal ileum due to incarcerated hernia. 11. History of cervical disk disease. PLAN/SUGGESTION: 1. Follow up with critical care team. 2. Supportive care. 3. Daily range of motion. 4. Skin protection. 5. DVT prophylaxis. 6. Will need extensive rehab if his hopefully his mental status improves. 7. Consider MRI of the brain if and when able. Thank you very much for this consultation. Findings were discussed with family. NGOC KAMINSKI M.D. [id number] MTDD
--- NOTE | 2018-03-26 18:50 | PN ---
Progress Note, Physician Chief Complaint: SBO History of Present Illness: 82 yo male PMH BPH, degernerative disc disease (cervical), diverticulosis, hemorrhoids presented to the ED with abdominal pain and vomiting for on day. He reports that he was weight training yesterday and developed some groin pain. He remains intubated with altered sensorium after being sedated for an extended period. He was weaned from vasopressors. - Current Medication List Current Medications: Active Medications Amino Acids (Prosource No Carb Liquid Pkt) 30 ml PO DAILY JUDY Last Admin: 03/26/18 10:35 Dose: 30 ml Artificial Tears (Artificial Tears) 1 drop OU BID PRN PRN Reason: DRY EYES Last Admin: 03/24/18 13:23 Dose: 1 drop Chlorhexidine Gluconate (Peridex -) 15 ml MM BID JUDY Last Admin: 03/26/18 10:36 Dose: 15 ml Chlorhexidine Gluconate (Hibiclens For Decolonization -) 1 applic TP HS JUDY Last Admin: 03/26/18 00:00 Dose: 1 applic Heparin Sodium (Porcine) (Heparin -) 1,000 unit IVPUSH PRN PRN PRN Reason: Heparin Last Admin: 03/25/18 17:00 Dose: 1,000 unit Heparin Sodium (Porcine) (Heparin -) 5,000 unit IVPUSH PRN PRN PRN Reason: Heparin Meropenem 1 gm/ Dextrose 100 mls @ 200 mls/hr IVPB Q8H-IV JUDY Last Admin: 03/26/18 18:37 Dose: 200 mls/hr HEPARIN SOD,PORK IN 0.45% NACL (Heparin-1/2ns 25,000 Units/500) 25,000 units in 500 mls @ 20 mls/hr IVPB TITR JUDY; Protocol Last Admin: 03/25/18 17:00 Dose: 1,300 units/hr, 26 mls/hr Vancomycin HCl 1,500 mg/ (Dextrose) 500 mls @ 250 mls/hr IVPB Q24H JUDY; Protocol Last Admin: 03/26/18 14:27 Dose: 250 mls/hr Insulin Aspart (Novolog Vial Sliding Scale -) 1 vial SQ ACHS [facility]; Protocol Last Admin: 03/26/18 18:37 Dose: 6 units Midazolam HCl (Versed -) 2 mg IVPUSH Q2H PRN PRN Reason: AGITATION Last Admin: 03/24/18 22:31 Dose: 2 mg Morphine Sulfate (Morphine Sulfate) 3 mg IVPUSH Q2H PRN PRN Reason: PAIN LEVEL 1 - 3 Last Admin: 03/24/18 11:53 Dose: 3 mg Ondansetron HCl (Zofran Injection) 4 mg IVPUSH Q6H PRN PRN Reason: NAUSEA Pantoprazole Sodium (Protonix Iv) 40 mg IVPUSH DAILY JUDY Last Admin: 03/26/18 10:35 Dose: 40 mg - Objective Vital Signs: Vital Signs Temperature 99.2 F 03/26/18 16:04 Pulse Rate 96 H 03/26/18 18:00 Respiratory Rate 22 03/26/18 18:00 Blood Pressure 144/76 03/26/18 18:00 O2 Sat by Pulse Oximetry (%) 95 03/26/18 08:00 Constitutional: Yes: Well Nourished, No Distress, Calm Eyes: Yes: Conjunctiva Clear, EOM Intact HENT: Yes: Atraumatic, Normocephalic Neck: Yes: Supple, Trachea Midline Cardiovascular: Yes: Regular Rate and Rhythm, S1, S2 Respiratory: Yes: Regular, CTA Bilaterally Gastrointestinal: Yes: Normal Bowel Sounds, Soft. No: Tenderness Genitourinary: No: CVA Tenderness - Left, CVA Tenderness - Right Extremities: No: Cool, Cyanosis Edema: Yes Edema: LUE: 1+, RUE: 1+, LLE: 1+, RLE: 1+ Peripheral Pulses WNL: Yes Peripheral Pulses: Left Radial: 2+, Right Radial: 2+, Left Doralis Pedis: 2+, Right Dorsalis Pedis: 2+, Left Femoral: 2+, Right Femoral: 2+ Labs: CBC, BMP 03/26/18 05:20 03/26/18 05:20 INR, PTT INR 1.39 (0.82-1.09) H 03/20/18 05:55 Problem List - Problems (1) Strangulated inguinal hernia Assessment/Plan: 82yo male MMP relatively healthy with SBO abdominal pain non reducible LIH, unclear transition point and no clear bowel ischemia identified. Bibasilar pulmonary consolidation and hoarsness may be a sequela of an aspiration. POD#12 s/p Exploratory Laparotomy, segmental ressection of SB and primary stapled anastomosis for strangulated RIH. low grade fevers persists. Patient has soft bowel movements. CT scan showed worsening consolidation of the lower lobes, SB anastomosis is intact, obstruction is relieved. CIP on EMG. Now weaning on the vent. S/p percutaneous cholecystostomy in IR. Tracheostomy friday ICU management Vent weaning continue quintero for I&O NGT feeds to goal for IBW Add Prostat TID IV antibiotics per ID GI and DVT prophylaxsis will follow This patient is critically ill. Time spent reviewing chart, examining patient, talking with providers and/or family and documentation is 45 minutes Code(s): K40.30 - UNIL INGUINAL HERNIA, W OBST, W/O GANGR, NOT SPCF RECUR (2) Incarcerated left inguinal hernia Code(s): K40.30 - UNIL INGUINAL HERNIA, W OBST, W/O GANGR, NOT SPCF RECUR (3) BPH (benign prostatic hyperplasia) Code(s): N40.0 - BENIGN PROSTATIC HYPERPLASIA WITHOUT LOWER URINRY TRACT SYMP Qualifiers: Lower urinary tract symptom presence: symptoms present Lower urinary tract symptom detail: urinary frequency Qualified Code(s): N40.1 - Benign prostatic hyperplasia with lower urinary tract symptoms; R35.0 - Frequency of micturition ; R35.0 - Frequency of micturition (4) DDD (degenerative disc disease), cervical Code(s): M50.30 - OTHER CERVICAL DISC DEGENERATION, UNSP CERVICAL REGION (5) SBO (small bowel obstruction) Code(s): K56.609 - UNSP INTESTNL OBST, UNSP TO PARTIAL VERSUS COMPLETE OBST (6) Aspiration pneumonia of both lower lobes due to gastric secretions Code(s): J69.0 - PNEUMONITIS DUE TO INHALATION OF FOOD AND VOMIT
[2018-03-26] MEDS: CHLORHEXIDINE GLUCONATE 4% CLEANSER FOR DECOLONIZATION TP SCH ×2 (21:57)
[2018-03-27] MEDS: MEROPENEM 1 GM in DEXTROSE 5%-WATER 100 ML IVPB SCH ×3 (03:17→18:13)
[2018-03-27] MEDS ORDERED: PT OWN MED DRAWER 7, Y5N ONE ×3 (04:17→18:09)
[2018-03-27 06:20] LABS: HEMATOCRIT 32.3 % (35.4-49); HEMOGLOBIN 10.8 GM/dL (11.7-16.9); MCH 30.3 pg (25.7-33.7); MCHC 33.6 g/dl (32.0-35.9); MEAN CELL VOLUME 90.3 fl (80-96); MEAN PLT VOLUME 10.8 fl (7.5-11.1); PLATELET COUNT 406 K/MM3 (134-434); RBC 3.58 M/mm3 (4.00-5.60); WHITE BLOOD COUNT 15.1 K/mm3 (4.0-10.0)
[2018-03-27] MEDS: INSULIN SLIDING SCALE (NOVOLOG) 1 VIAL SQ SCH ×4 (06:28→22:10)
[2018-03-27 06:49] LABS: CHLORIDE 103 mmol/L (98-107); POTASSIUM 4.2 mmol/L (3.5-5.1); SODIUM 139 mmol/L (136-145)
[2018-03-27 06:53] LABS: ALK PHOS 136 U/L (45-117); ANION GAP 6 (8-16); BILIRUBIN,TOTAL 2.7 mg/dL (0.2-1.0); BLOOD UREA NITROGEN 29 mg/dL (7-18); CALCIUM 7.4 mg/dL (8.5-10.1); CO2 30 mmol/L (21-32); CREATININE 0.4 mg/dL (0.7-1.3); GLUCOSE,RANDOM 234 mg/dL (74-106); MAGNESIUM 1.8 mg/dL (1.8-2.4); PHOSPHOROUS 2.1 mg/dL (2.5-4.9); SGOT/AST 74 U/L (15-37); SGPT/ALT 80 U/L (12-78)
[2018-03-27] MEDS ORDERED: SODIUM PHOSPHATE - 30 MM in DEXTROSE 5%-WATER - 250 ML IVPB ONE (09:00)
[2018-03-27] MEDS: AMINO ACIDS/PROTEIN HYDROLYS 30 ML LIQUID.PKT PO SCH (10:36)
[2018-03-27] MEDS: PANTOPRAZOLE SODIUM 40 MG VIAL IVPUSH SCH (10:37)
[2018-03-27] MEDS: CHLORHEXIDINE GLUCONATE 0.12% 15ML CUP MM SCH ×2 (10:37→22:02)
[2018-03-27] MEDS: morphine SULFATE 4 MG/ML VIAL IVPUSH PRN ×2 (11:56→22:40)
--- NOTE | 2018-03-27 12:07 | PN ---
Teaching Attending Note Name of Resident: Luke Drake ATTENDING PHYSICIAN STATEMENT I saw and evaluated the patient. I reviewed the resident's note and discussed the case with the resident. I agree with the resident's findings and plan as documented. SUBJECTIVE: Patient seen and examined in the ICU. CIP on EMG study. Remains intubated and lightly sedated. No pressors. CXR: ETT in good position / no gross change in bilateral infiltrates OBJECTIVE: Intake & Output 03/24/18 03/25/18 03/26/18 03/27/18 23:59 23:59 23:59 23:59 Intake Total 1131 2542 1392 652 Output Total 3595 2130 4040 650 Balance -4591 380 -5425 2 Weight 182 lb 5.156 oz 176 lb 5.917 oz 175 lb 7.807 oz 173 lb Last Vital Signs Temp Pulse Resp BP Pulse Ox 100.2 F H 97 H 32 H 123/53 96 03/27/18 10:00 03/27/18 10:10 03/27/18 11:20 03/27/18 10:00 03/27/18 10:10 Active Medications Amino Acids (Prosource No Carb Liquid Pkt) 30 ml PO DAILY JUDY Last Admin: 03/27/18 10:36 Dose: 30 ml Artificial Tears (Artificial Tears) 1 drop OU BID PRN PRN Reason: DRY EYES Last Admin: 03/24/18 13:23 Dose: 1 drop Chlorhexidine Gluconate (Peridex -) 15 ml MM BID JUDY Last Admin: 03/27/18 10:37 Dose: 15 ml Chlorhexidine Gluconate (Hibiclens For Decolonization -) 1 applic TP HS JDUY Last Admin: 03/26/18 21:57 Dose: 1 applic Heparin Sodium (Porcine) (Heparin -) 1,000 unit IVPUSH PRN PRN PRN Reason: Heparin Last Admin: 03/25/18 17:00 Dose: 1,000 unit Heparin Sodium (Porcine) (Heparin -) 5,000 unit IVPUSH PRN PRN PRN Reason: Heparin Meropenem 1 gm/ Dextrose 100 mls @ 200 mls/hr IVPB Q8H-IV JUDY Last Admin: 03/27/18 10:37 Dose: 200 mls/hr HEPARIN SOD,PORK IN 0.45% NACL (Heparin-1/2ns 25,000 Units/500) 25,000 units in 500 mls @ 20 mls/hr IVPB TITR JUDY; Protocol Last Admin: 03/25/18 17:00 Dose: 1,300 units/hr, 26 mls/hr Vancomycin HCl 1,500 mg/ (Dextrose) 500 mls @ 250 mls/hr IVPB Q24H JUDY; Protocol Last Admin: 03/26/18 14:27 Dose: 250 mls/hr Sodium Phosphate 30 mm/ (Dextrose) 260 mls @ 52 mls/hr IVPB ONCE ONE Stop: 03/27/18 13:59 Insulin Aspart (Novolog Vial Sliding Scale -) 1 vial SQ ACHS [facility]; Protocol Last Admin: 03/27/18 06:28 Dose: 6 units Morphine Sulfate (Morphine Sulfate) 3 mg IVPUSH Q2H PRN PRN Reason: PAIN LEVEL 4 - 6 Last Admin: 03/27/18 11:56 Dose: 3 mg Ondansetron HCl (Zofran Injection) 4 mg IVPUSH Q6H PRN PRN Reason: NAUSEA Pantoprazole Sodium (Protonix Iv) 40 mg IVPUSH DAILY [facility] Last Admin: 03/27/18 10:37 Dose: 40 mg Gen: Intubated, sedated Heart: RRR Lung: scattered rhonchi Abd: soft, nontender Ext: + dependent edema Laboratory Results - last 24 hr 03/26/18 03/26/18 03/26/18 05:20 12:35 18:23 WBC RBC Hgb Hct MCV MCH MCHC RDW Plt Count MPV PTT (Actin FS) Sodium Potassium Chloride Carbon Dioxide Anion Gap BUN 31 H Creatinine Creat Clearance w eGFR POC Glucometer 289.96209 260.96850 Random Glucose Calcium Phosphorus Magnesium Total Bilirubin AST ALT Alkaline Phosphatase Total Protein Albumin 03/26/18 03/27/18 03/27/18 22:02 05:15 05:15 WBC 15.1 H RBC 3.58 L Hgb 10.8 L Hct 32.3 L MCV 90.3 MCH 30.3 MCHC 33.6 RDW 14.0 Plt Count 406 MPV 10.8 PTT (Actin FS) Sodium 139 Potassium 4.2 Chloride 103 Carbon Dioxide 30 Anion Gap 6 L BUN 29 H Creatinine 0.4 L Creat Clearance w eGFR > 60 POC Glucometer [phone] Random Glucose 234 H Calcium 7.4 L Phosphorus 2.1 L Magnesium 1.8 Total Bilirubin 2.7 H D AST 74 H ALT 80 H Alkaline Phosphatase 136 H Total Protein 5.0 L Albumin 1.0 L 03/27/18 03/27/18 05:15 05:54 WBC RBC Hgb Hct MCV MCH MCHC RDW Plt Count MPV PTT (Actin FS) 54.6 H Sodium Potassium Chloride Carbon Dioxide Anion Gap BUN Creatinine Creat Clearance w eGFR POC Glucometer 252.51125 Random Glucose Calcium Phosphorus Magnesium Total Bilirubin AST ALT Alkaline Phosphatase Total Protein Albumin ASSESSMENT AND PLAN: CIP Acute Hypoxic Respiratory Failure Aspiration Pneumonia ARDS resolving Incarcerated Inguinal Hernia s/p ex-lap/segmental terminal ileum resection/primary anastamosis 03/13 Suspected Acalculus Cholecystitis s/p percutaneous cholecystostomy Septic Shock resolving Acute Kidney Injury improving Lactic Acidosis resolved New onset Paroxysmal Atrial Fibrillation Diverticulosis BPH - antibiotics per ID - rate controlled - continue anticoagulation - Daily assessment for need for lasix - monitor urine output, creatinine - Maintain low tidal volume ventilation - keep Pplat <30 (today 15) - taper FiO2, PEEP to keep SpO2 >90% - minimize sedation to assess mental status - enteral feeds - DVT/GI prophylaxis - continue ICU monitoring - Will need Trach Dr Moreno Critical care time spent in reviewing chart, evaluating patient and formulating plan 35 min
--- NOTE | 2018-03-27 13:49 | PN ---
Teaching Attending Note Name of Resident: Mukul White ATTENDING PHYSICIAN STATEMENT I saw and evaluated the patient. I reviewed the resident's note and discussed the case with the resident. I agree with the resident's findings and plan as documented. SUBJECTIVE: No events over night. OBJECTIVE: Intubated, tracks , but does not follow commands .round equal pupils 2 mm in diameter, reactive to light . CV: RRR. Lungs; clear anteriorly, decreased breath sounds at bases Abd: + BS. mid line surgical wound with panda. dark green liquid in RUQ LEIF drain Ext: 1+ edema on LE ASSESSMENT AND PLAN: Unfortunate 82 y/o gentleman with h/o DJD, GERD, diverticulosis and other medical problems who presented with abd pain and was found to have SBO with bowel ischemia , and incarcerated hernia and developed acute resp failure and septic shock. 1- Acute hypoxic resp failure. due to severe sepsis and b/l PNA /ARDS. still not able to wean off vent - possible trach - cont mechanical ventilation and weaning trials 2- Septic shock. improved - cont Abx - next vanco trough on 03/28 at 14:30 - WBC increaed. if cont to increase , might need to re-image abd 3- Ischemic bowel and incarcerated inguinal hernia : s/p exploratory laparotomy and partial small bowel resection. 4- Possible acalculus cholecystitis : s/p cholecystostomy tube -monitor LFTS .improved 5-new onset A flutter/A fib : now in sinus rhythm. Likely stress induced but can't r/o PAF - cont heparin gtt . will switch to po AC once no further surgical intervention is indicated or planned - rate controlled 6- R IJ thrombus /DVT: - cont heparin gtt 7- Decreased level of consciousness : no CT changes. monitor off sedation 8- ICU neuropathy. PT and monitor PX: PPI and on heparin gtt
--- NOTE | 2018-03-27 13:57 | PN ---
Physical Exam: SUBJECTIVE: Patient seen and examined. Awake, still not responsive. s/p EMG yesterday consistent with Critical illness polyneuropathy. OBJECTIVE: Vital Signs Period Temp Pulse Resp BP Sys/Ceballos Pulse Ox Last 24 Hr 98.8 F-100.2 F 93-104 16-32 120-144/53-76 96-99 GENERAL: intubated, opens eyes, awake, no responsive or following commands. EYES: PERRL, sclera anicteric ENT: dry mucous membranes. Neck: L IJ line site C/D/I LUNGS: scattered rhonchi HEART: Regular rate and rhythm, S1, S2 without murmur, rub or gallop. ABDOMEN: c-tube, +BS EXTREMITIES: 2+ pulses throughout. RUE swelling and erythema. Laboratory Results - last 24 hr 03/26/18 03/26/18 03/27/18 18:23 22:02 05:15 WBC 15.1 H RBC 3.58 L Hgb 10.8 L Hct 32.3 L MCV 90.3 MCH 30.3 MCHC 33.6 RDW 14.0 Plt Count 406 MPV 10.8 PTT (Actin FS) Sodium Potassium Chloride Carbon Dioxide Anion Gap BUN Creatinine Creat Clearance w eGFR POC Glucometer 260.80085 219.65869 Random Glucose Calcium Phosphorus Magnesium Total Bilirubin AST ALT Alkaline Phosphatase Total Protein Albumin 03/27/18 03/27/18 03/27/18 05:15 05:15 05:54 WBC RBC Hgb Hct MCV MCH MCHC RDW Plt Count MPV PTT (Actin FS) 54.6 H Sodium 139 Potassium 4.2 Chloride 103 Carbon Dioxide 30 Anion Gap 6 L BUN 29 H Creatinine 0.4 L Creat Clearance w eGFR > 60 POC Glucometer [phone] Random Glucose 234 H Calcium 7.4 L Phosphorus 2.1 L Magnesium 1.8 Total Bilirubin 2.7 H D AST 74 H ALT 80 H Alkaline Phosphatase 136 H Total Protein 5.0 L Albumin 1.0 L 03/27/18 12:15 WBC RBC Hgb Hct MCV MCH MCHC RDW Plt Count MPV PTT (Actin FS) Sodium Potassium Chloride Carbon Dioxide Anion Gap BUN Creatinine Creat Clearance w eGFR POC Glucometer [phone] Random Glucose Calcium Phosphorus Magnesium Total Bilirubin AST ALT Alkaline Phosphatase Total Protein Albumin Active Medications Generic Name Dose Route Start Last Admin Trade Name Freq PRN Reason Stop Dose Admin Acetaminophen 650 mg 03/27/18 13:00 Tylenol Oral Solution - PO Q6H PRN FEVER Amino Acids 30 ml 03/24/18 13:00 03/27/18 10:36 Prosource No Carb Liquid Pkt PO 30 ml DAILY JUDY Administration Artificial Tears 1 drop 03/24/18 10:59 03/24/18 13:23 Artificial Tears OU 1 drop BID PRN Administration DRY EYES Chlorhexidine Gluconate 15 ml 03/13/18 10:00 03/27/18 10:37 Peridex - MM 15 ml BID JUDY Administration Chlorhexidine Gluconate 1 applic 03/13/18 22:00 03/26/18 21:57 Hibiclens For Decolonization - TP 1 applic HS JUDY Administration Heparin Sodium (Porcine) 1,000 unit 03/20/18 14:07 03/25/18 17:00 Heparin - IVPUSH 1,000 unit PRN PRN Administration Heparin Heparin Sodium (Porcine) 5,000 unit 03/20/18 14:07 Heparin - IVPUSH PRN PRN Heparin Meropenem 1 gm/ Dextrose 100 mls @ 200 mls/hr 03/19/18 18:00 03/27/18 10:37 IVPB 200 mls/hr Q8H-IV JUDY Administration HEPARIN SOD,PORK IN 0.45% NACL 25,000 units in 500 mls @ 20 mls/hr 03/20/18 14 :15 03/25/18 17:00 Heparin-1/2ns 25,000 Units/500 IVPB 1,300 units/hr TITR JUDY 26 mls/hr Administration Protocol 1,000 UNITS/HR Vancomycin HCl 1,500 mg/ 500 mls @ 250 mls/hr 03/25/18 15:00 03/26/18 14:27 Dextrose IVPB 250 mls/hr Q24H JUDY Administration Protocol Sodium Phosphate 30 mm/ 260 mls @ 52 mls/hr 03/27/18 09:00 03/27/18 12:07 Dextrose IVPB 03/27/18 13:59 52 mls/hr ONCE ONE Administration Insulin Aspart 1 vial 03/23/18 11:00 03/27/18 06:28 Novolog Vial Sliding Scale - SQ 6 units ACHS JUDY Administration Protocol Morphine Sulfate 3 mg 03/27/18 11:25 03/27/18 11:56 Morphine Sulfate IVPUSH 3 mg Q2H PRN Administration PAIN LEVEL 4 - 6 Ondansetron HCl 4 mg 03/13/18 04:30 Zofran Injection IVPUSH Q6H PRN NAUSEA Pantoprazole Sodium 40 mg 03/13/18 10:00 03/27/18 10:37 Protonix Iv IVPUSH 40 mg DAILY JUDY Administration ASSESSMENT/PLAN: 82yo relatively healthy M presented w/ SBO from an incarcerated R inguinal hernia after weight training #PULM -Acute Hypoxic Respiratory Failure, Aspiration PNA, ARDS -low tidal volume ventilation -Taper Fi02, Peep to keep O2 Sat >90% -keep Pplat <30. 15 today -minimize sedation to assess mental status -spontaneous breathing trials as tolerated when mental status improved -tolerating weaning trials but cannot extubate due to mental status. -Daily assess the need for Lasix -Discuss Tracheostomy placement with family. #GI Incarcerated Inguinal Hernia s/p ex-lap/segmental terminal ileum resection/primary anastamosis 03/13 r/o Acalculus Cholecystitis s/p percutaneous cholecystostomy, s/p percutaneous drainage by IR 03/20 -Tube feeds -Zofran for nausea -IV abx Meropenem, Vancomycin -monitor LFTs #CV -Afib/A-flutter -sinus rhythm today -rate controlled -Heparin ggt -echo unremarkable -Fu cardio reccs -R IJ nonocclusive clot. Already on heparin ggt #Neuro -altered mental status likely from Critical illness polyneuropathy -EMG consistent with critical illness polyneuropathy -CT head unremarkable -will monitor #FEN -Avoid -Replete as needed -Tube feeds, prosource #PPx -Protonix -Heparin ggt cont ICU monitoring Visit type - Emergency Visit Emergency Visit: Yes ED Registration Date: 03/12/18 Care time: The patient presented to the Emergency Department on the above date and was hospitalized for further evaluation of their emergent condition. - New Patient This patient is new to me today: No - Critical Care Critical Care patient: Yes Total Critical Care Time (in minutes): 40 Critical Care Statement: The care of this patient involved high complexity decision making to prevent further life threatening deterioration of the patient 's condition and/or to evaluate & treat vital organ system(s) failure or risk of failure.
--- NOTE | 2018-03-27 13:58 | PN ---
Progress Note (short form) - Note Progress Note: Spoke with regarding tracheostomy. Plan for 10:30am Friday. family will sign consent this weekend keep patient NPO Friday hold heparin for 6hr pre procedure
--- NOTE | 2018-03-27 14:22 | PN ---
Progress Note (short form) - Note Progress Note: Thoracic Surgery: Chart reviewed. Possible tracheostomy Friday (~10AM). Please hold feeds Friday MN. Please hold heparin 6 hours prior to procedure.
--- NOTE | 2018-03-27 15:17 | PN ---
Physical Exam: SUBJECTIVE: No acute events overnight. Pt afebrile since yesterday morning. Pt remain intubated. OBJECTIVE: Vital Signs Period Temp Pulse Resp BP Sys/Ceballos Pulse Ox Last 24 Hr 98.8 F-100.2 F 93-104 16-32 120-144/53-76 96-99 GENERAL: NAD, intubated, opens eyes and tracks around room, no commands listened to HEENT: KITTY, NG in place, dry mucous membranes, ETT noted Neck: L IJ line site C/D/I, no JVD LUNGS: Coarse b/l breath sounds at bases. AC mode: TV 420, PEEP 5, FiO2 40%, RR 12 HEART: RRR, S1, S2 without murmur ABDOMEN: Soft, nondistended, nontender, Midline incision C/D/I, C-tube draining dark fluid EXTREMITIES: 2+ DP pulses, warm, 1+ ankle edema improved SKIN: Warm, dry, no rash or lesions currently Laboratory Results - last 24 hr 03/26/18 03/26/18 03/27/18 18:23 22:02 05:15 WBC 15.1 H RBC 3.58 L Hgb 10.8 L Hct 32.3 L MCV 90.3 MCH 30.3 MCHC 33.6 RDW 14.0 Plt Count 406 MPV 10.8 PTT (Actin FS) Sodium Potassium Chloride Carbon Dioxide Anion Gap BUN Creatinine Creat Clearance w eGFR POC Glucometer 260.15028 219.65467 Random Glucose Calcium Phosphorus Magnesium Total Bilirubin AST ALT Alkaline Phosphatase Total Protein Albumin 03/27/18 03/27/18 03/27/18 05:15 05:15 05:54 WBC RBC Hgb Hct MCV MCH MCHC RDW Plt Count MPV PTT (Actin FS) 54.6 H Sodium 139 Potassium 4.2 Chloride 103 Carbon Dioxide 30 Anion Gap 6 L BUN 29 H Creatinine 0.4 L Creat Clearance w eGFR > 60 POC Glucometer 252.87046 Random Glucose 234 H Calcium 7.4 L Phosphorus 2.1 L Magnesium 1.8 Total Bilirubin 2.7 H D AST 74 H ALT 80 H Alkaline Phosphatase 136 H Total Protein 5.0 L Albumin 1.0 L 03/27/18 12:15 WBC RBC Hgb Hct MCV MCH MCHC RDW Plt Count MPV PTT (Actin FS) Sodium Potassium Chloride Carbon Dioxide Anion Gap BUN Creatinine Creat Clearance w eGFR POC Glucometer 279.08621 Random Glucose Calcium Phosphorus Magnesium Total Bilirubin AST ALT Alkaline Phosphatase Total Protein Albumin Active Medications Generic Name Dose Route Start Last Admin Trade Name Freq PRN Reason Stop Dose Admin Acetaminophen 650 mg 03/27/18 13:00 Tylenol Oral Solution - PO Q6H PRN FEVER Amino Acids 30 ml 03/24/18 13:00 03/27/18 10:36 Prosource No Carb Liquid Pkt PO 30 ml DAILY JUDY Administration Artificial Tears 1 drop 03/24/18 10:59 03/24/18 13:23 Artificial Tears OU 1 drop BID PRN Administration DRY EYES Chlorhexidine Gluconate 15 ml 03/13/18 10:00 03/27/18 10:37 Peridex - MM 15 ml BID JUDY Administration Chlorhexidine Gluconate 1 applic 03/13/18 22:00 03/26/18 21:57 Hibiclens For Decolonization - TP 1 applic HS JUDY Administration Heparin Sodium (Porcine) 1,000 unit 03/20/18 14:07 03/25/18 17:00 Heparin - IVPUSH 1,000 unit PRN PRN Administration Heparin Heparin Sodium (Porcine) 5,000 unit 03/20/18 14:07 Heparin - IVPUSH PRN PRN Heparin Meropenem 1 gm/ Dextrose 100 mls @ 200 mls/hr 03/19/18 18:00 03/27/18 10:37 IVPB 200 mls/hr Q8H-IV JUDY Administration HEPARIN SOD,PORK IN 0.45% NACL 25,000 units in 500 mls @ 20 mls/hr 03/20/18 14 :15 03/25/18 17:00 Heparin-1/2ns 25,000 Units/500 IVPB 1,300 units/hr TITR JUDY 26 mls/hr Administration Protocol 1,000 UNITS/HR Vancomycin HCl 1,500 mg/ 500 mls @ 250 mls/hr 03/25/18 15:00 03/26/18 14:27 Dextrose IVPB 250 mls/hr Q24H JUDY Administration Protocol Insulin Aspart 1 vial 03/23/18 11:00 03/27/18 06:28 Novolog Vial Sliding Scale - SQ 6 units ACHS JUDY Administration Protocol Morphine Sulfate 3 mg 03/27/18 11:25 03/27/18 11:56 Morphine Sulfate IVPUSH 3 mg Q2H PRN Administration PAIN LEVEL 4 - 6 Ondansetron HCl 4 mg 03/13/18 04:30 Zofran Injection IVPUSH Q6H PRN NAUSEA Pantoprazole Sodium 40 mg 03/13/18 10:00 03/27/18 10:37 Protonix Iv IVPUSH 40 mg DAILY JUDY Administration ASSESSMENT/PLAN: 1) Acute hypoxic respiratory failure --Vent settings decreasing as tolerated --Head CT negative --EMG performed consistent with ICU neuropathy making it difficult to wean currently --Consult cardiothoracic: Dr. Calhoun --Potential trach Friday @10; stop feeds Friday night; hold heparin 6 hours prior --Maintain SpO2 >90% 2) Septic shock 2/2 to bowel ischemia in addition to aspiration PNA --Remains off pressors --ID on board --Meropenem to continue --Vancomycin 1.25gm qDaily --WBC slight increase; discuss with Dr. Fox/ICU team about potential CT scan 3) Elevated LFTs --Bilirubin downtrending dramatically today --C-tube in place draining bile 4) Atrial flutter --Cardiology consulted --Heparin gtt remains; monitor aPtt --Echo unremarkable FEN: Fluids: Avoid Electrolyte abnormalities: Hypophosphatemia; (repleted NaPhos); pseudohypocalcemia Nutrition: NGT feeds ongoing; rate 50 with prosource on board PPX: DVT - Heparin gtt on already GI - Protonix 40mg IVP daily Dispo: Continue ICU monitoring Case discussed with Dr. Mati White, DO - IM PGY-1 Visit type - Emergency Visit Emergency Visit: No - New Patient This patient is new to me today: No - Critical Care Critical Care patient: No
--- NOTE | 2018-03-27 15:35 | PN ---
Progress Note, Physician Chief Complaint: SBO History of Present Illness: 82 yo male PMH BPH, degernerative disc disease (cervical), diverticulosis, hemorrhoids presented to the ED with abdominal pain and vomiting for on day. He reports that he was weight training yesterday and developed some groin pain. He remains intubated with critical illness polyneuropathy. intermittent clinical improvement. - Current Medication List Current Medications: Active Medications Acetaminophen (Tylenol Oral Solution -) 650 mg PO Q6H PRN PRN Reason: FEVER Amino Acids (Prosource No Carb Liquid Pkt) 30 ml PO DAILY [facility] Last Admin: 03/27/18 10:36 Dose: 30 ml Artificial Tears (Artificial Tears) 1 drop OU BID PRN PRN Reason: DRY EYES Last Admin: 03/24/18 13:23 Dose: 1 drop Chlorhexidine Gluconate (Peridex -) 15 ml MM BID [facility] Last Admin: 03/27/18 10:37 Dose: 15 ml Chlorhexidine Gluconate (Hibiclens For Decolonization -) 1 applic TP HS [facility] Last Admin: 03/26/18 21:57 Dose: 1 applic Heparin Sodium (Porcine) (Heparin -) 1,000 unit IVPUSH PRN PRN PRN Reason: Heparin Last Admin: 03/25/18 17:00 Dose: 1,000 unit Heparin Sodium (Porcine) (Heparin -) 5,000 unit IVPUSH PRN PRN PRN Reason: Heparin Meropenem 1 gm/ Dextrose 100 mls @ 200 mls/hr IVPB Q8H-IV [facility] Last Admin: 03/27/18 10:37 Dose: 200 mls/hr HEPARIN SOD,PORK IN 0.45% NACL (Heparin-1/2ns 25,000 Units/500) 25,000 units in 500 mls @ 20 mls/hr IVPB TITR [facility]; Protocol Last Admin: 03/25/18 17:00 Dose: 1,300 units/hr, 26 mls/hr Vancomycin HCl 1,500 mg/ (Dextrose) 500 mls @ 250 mls/hr IVPB Q24H [facility]; Protocol Last Admin: 03/26/18 14:27 Dose: 250 mls/hr Insulin Aspart (Novolog Vial Sliding Scale -) 1 vial SQ ACHS [facility]; Protocol Last Admin: 03/27/18 06:28 Dose: 6 units Morphine Sulfate (Morphine Sulfate) 3 mg IVPUSH Q2H PRN PRN Reason: PAIN LEVEL 4 - 6 Last Admin: 03/27/18 11:56 Dose: 3 mg Ondansetron HCl (Zofran Injection) 4 mg IVPUSH Q6H PRN PRN Reason: NAUSEA Pantoprazole Sodium (Protonix Iv) 40 mg IVPUSH DAILY [facility] Last Admin: 03/27/18 10:37 Dose: 40 mg - Objective Vital Signs: Vital Signs Temperature 100.2 F H 03/27/18 14:00 Pulse Rate 102 H 03/27/18 14:00 Respiratory Rate 29 H 03/27/18 14:15 Blood Pressure 139/64 03/27/18 14:00 O2 Sat by Pulse Oximetry (%) 96 03/27/18 10:10 Vital Signs Period Temp Pulse Resp BP Sys/Ceballos Pulse Ox Last 24 Hr 98.8 F-100.2 F 93-104 16-32 120-144/53-76 96-99 Intake & Output 03/26/18 03/27/18 03/27/18 23:59 07:59 15:59 Intake Total 380 652 Output Total 3300 650 Balance -2920 2 Weight 173 lb Intake: IV 130 182 HEPARIN-1/2NS 25,000 130 182 UNITS/500 25,000 units In 500 ml @ 1,000 UNITS/HR 20 mls/hr IVPB TITR [facility] Rx#:[id number] IVPB 100 Tube Feeding 200 300 Tube Irrigant 50 70 Output: Drainage 50 Right Upper Abdomen 50 Urine 3300 600 Quintero 3300 600 Other: Voiding Method Indwelling Catheter Indwelling Catheter Bowel Movement Yes Weight Measurement Method Built in [facility] Constitutional: Yes: Well Nourished, No Distress, Calm Eyes: Yes: Conjunctiva Clear, EOM Intact HENT: Yes: Atraumatic, Normocephalic Neck: Yes: Supple, Trachea Midline Cardiovascular: Yes: Regular Rate and Rhythm, S1, S2 Respiratory: Yes: Regular, CTA Bilaterally Gastrointestinal: Yes: Normal Bowel Sounds, Soft. No: Tenderness Genitourinary: No: CVA Tenderness - Left, CVA Tenderness - Right Extremities: No: Cool, Cyanosis Edema: Yes Edema: LUE: 2+, RUE: 2+, LLE: 2+, RLE: 2+ Peripheral Pulses WNL: Yes Peripheral Pulses: Left Radial: 2+, Right Radial: 2+, Left Doralis Pedis: 2+, Right Dorsalis Pedis: 2+, Left Femoral: 2+, Right Femoral: 2+ Neurological: Yes: Weakness Labs: CBC, BMP 03/27/18 05:15 03/27/18 05:15 INR, PTT INR 1.39 (0.82-1.09) H 03/20/18 05:55 Problem List - Problems (1) Strangulated inguinal hernia Assessment/Plan: 82yo male MMP relatively healthy with SBO abdominal pain non reducible LIH, unclear transition point and no clear bowel ischemia identified. Bibasilar pulmonary consolidation and hoarsness may be a sequela of an aspiration. POD#13 s/p Exploratory Laparotomy, segmental ressection of SB and primary stapled anastomosis for strangulated RIH. low grade fevers persists. Patient has soft bowel movements. CT scan showed worsening consolidation of the lower lobes, SB anastomosis is intact, obstruction is relieved. CIP on EMG. Now weaning on the vent. S/p percutaneous cholecystostomy in IR. Agree with plan for tracheostomy Friday. No indication for repeat CTscan abdomen, feeds at goal, no distension, wound healing well, passing soft stool. ICU management Vent weaning continue quintero for I&O NGT feeds to goal for IBW Add Prostat TID IV antibiotics per ID GI and DVT prophylaxsis will follow peripherally This patient is critically ill. Time spent reviewing chart, examining patient, talking with providers and/or family and documentation is 45 minutes Code(s): K40.30 - UNIL INGUINAL HERNIA, W OBST, W/O GANGR, NOT SPCF RECUR (2) Incarcerated left inguinal hernia Code(s): K40.30 - UNIL INGUINAL HERNIA, W OBST, W/O GANGR, NOT SPCF RECUR (3) BPH (benign prostatic hyperplasia) Code(s): N40.0 - BENIGN PROSTATIC HYPERPLASIA WITHOUT LOWER URINRY TRACT SYMP Qualifiers: Lower urinary tract symptom presence: symptoms present Lower urinary tract symptom detail: urinary frequency Qualified Code(s): N40.1 - Benign prostatic hyperplasia with lower urinary tract symptoms; R35.0 - Frequency of micturition ; R35.0 - Frequency of micturition (4) DDD (degenerative disc disease), cervical Code(s): M50.30 - OTHER CERVICAL DISC DEGENERATION, UNSP CERVICAL REGION (5) SBO (small bowel obstruction) Code(s): K56.609 - UNSP INTESTNL OBST, UNSP TO PARTIAL VERSUS COMPLETE OBST (6) Aspiration pneumonia of both lower lobes due to gastric secretions Code(s): J69.0 - PNEUMONITIS DUE TO INHALATION OF FOOD AND VOMIT
[2018-03-27] MEDS: HEPARIN SOD,PORK IN 0.45% NACL 25,000 UNITS/500 ML INFUS.BAG IVPB SCH ×3 (15:50→15:52)
[2018-03-27] MEDS: ACETAMINOPHEN 650 MG/20.3 ML ORAL SOLUTION (CUPS) PO PRN ×2 (15:50→22:39)
[2018-03-27] MEDS: VANCOMYCIN 1,500 MG in DEXTROSE 5%-WATER - 500 ML IVPB SCH (15:54)
--- NOTE | 2018-03-27 16:11 | PN ---
Progress Note, Physician History of Present Illness: low grade fever still on vent tracheostomy wbc has increased opens eyes more tracking - Current Medication List Current Medications: Active Medications Acetaminophen (Tylenol Oral Solution -) 650 mg PO Q6H PRN PRN Reason: FEVER Last Admin: 03/27/18 15:50 Dose: 650 mg Amino Acids (Prosource No Carb Liquid Pkt) 30 ml PO DAILY [facility] Last Admin: 03/27/18 10:36 Dose: 30 ml Artificial Tears (Artificial Tears) 1 drop OU BID PRN PRN Reason: DRY EYES Last Admin: 03/24/18 13:23 Dose: 1 drop Chlorhexidine Gluconate (Peridex -) 15 ml MM BID [facility] Last Admin: 03/27/18 10:37 Dose: 15 ml Chlorhexidine Gluconate (Hibiclens For Decolonization -) 1 applic TP HS [facility] Last Admin: 03/26/18 21:57 Dose: 1 applic Heparin Sodium (Porcine) (Heparin -) 1,000 unit IVPUSH PRN PRN PRN Reason: Heparin Last Admin: 03/25/18 17:00 Dose: 1,000 unit Heparin Sodium (Porcine) (Heparin -) 5,000 unit IVPUSH PRN PRN PRN Reason: Heparin Meropenem 1 gm/ Dextrose 100 mls @ 200 mls/hr IVPB Q8H-IV [facility] Last Admin: 03/27/18 10:37 Dose: 200 mls/hr HEPARIN SOD,PORK IN 0.45% NACL (Heparin-1/2ns 25,000 Units/500) 25,000 units in 500 mls @ 20 mls/hr IVPB TITR [facility]; Protocol Last Admin: 03/27/18 15:52 Dose: Not Given Vancomycin HCl 1,500 mg/ (Dextrose) 500 mls @ 250 mls/hr IVPB Q24H [facility]; Protocol Last Admin: 03/27/18 15:54 Dose: 250 mls/hr Insulin Aspart (Novolog Vial Sliding Scale -) 1 vial SQ ACHS [facility]; Protocol Last Admin: 03/27/18 06:28 Dose: 6 units Morphine Sulfate (Morphine Sulfate) 3 mg IVPUSH Q2H PRN PRN Reason: PAIN LEVEL 4 - 6 Last Admin: 03/27/18 11:56 Dose: 3 mg Ondansetron HCl (Zofran Injection) 4 mg IVPUSH Q6H PRN PRN Reason: NAUSEA Pantoprazole Sodium (Protonix Iv) 40 mg IVPUSH DAILY [facility] Last Admin: 03/27/18 10:37 Dose: 40 mg - Objective Vital Signs: Vital Signs Temperature 100.2 F H 03/27/18 14:00 Pulse Rate 102 H 03/27/18 14:00 Respiratory Rate 29 H 03/27/18 14:15 Blood Pressure 139/64 03/27/18 14:00 O2 Sat by Pulse Oximetry (%) 96 03/27/18 10:10 Constitutional: Yes: Other Cardiovascular: Yes: S1, S2 Respiratory: Yes: Mechanically Ventilated, Poor Air Entry Gastrointestinal: Yes: Normal Bowel Sounds, Soft Musculoskeletal: Yes: WNL Extremities: Yes: Other Edema: LLE: 1+, RLE: 1+ Wound/Incision: Yes: Clean/Dry Neurological: Yes: Other Labs: CBC, BMP 03/27/18 05:15 03/27/18 05:15 INR, PTT INR 1.39 (0.82-1.09) H 03/20/18 05:55 Assessment/Plan Problem List - Problems (1) Strangulated inguinal hernia Pulmonary evaluation - weaning today? GI Evaluation - Tbili 3.5, 3.6 BP goal MAP 65-70, has a stapled small bowel anastomosis avoid lwo flow states will follow Code(s): K40.30 - UNIL INGUINAL HERNIA, W OBST, W/O GANGR, NOT SPCF RECUR (2) Incarcerated left inguinal hernia Code(s): K40.30 - UNIL INGUINAL HERNIA, W OBST, W/O GANGR, NOT SPCF RECUR (3) BPH (benign prostatic hyperplasia) Code(s): N40.0 - BENIGN PROSTATIC HYPERPLASIA WITHOUT LOWER URINRY TRACT SYMP Qualifiers: Lower urinary tract symptom presence: symptoms present Lower urinary tract symptom detail: urinary frequency Qualified Code(s): N40.1 - Benign prostatic hyperplasia with lower urinary tract symptoms; R35.0 - Frequency of micturition ; R35.0 - Frequency of micturition (4) DDD (degenerative disc disease), cervical Code(s): M50.30 - OTHER CERVICAL DISC DEGENERATION, UNSP CERVICAL REGION (5) SBO (small bowel obstruction) Code(s): K56.609 - UNSP INTESTNL OBST, UNSP TO PARTIAL VERSUS COMPLETE OBST (6) Aspiration pneumonia of both lower lobes due to gastric secretions Code(s): J69.0 - PNEUMONITIS DUE TO INHALATION OF FOOD AND VOMIT r/o acalculus choley plan continue abx monitor vent setting rest as per icu aggressive chest pt continue suctioning improving monitor wbc if patient continues to spike fever will need scanning of chest/abd cc 40 min
[2018-03-27] MEDS ORDERED: BENZOIN/ALOE VERA/STORAX/TOLU 58 ML BOTTLE ONE (16:59)
[2018-03-27] MEDS: CHLORHEXIDINE GLUCONATE 4% CLEANSER FOR DECOLONIZATION TP SCH (22:02)
[2018-03-28] MEDS: MEROPENEM 1 GM in DEXTROSE 5%-WATER 100 ML IVPB SCH ×3 (01:06→18:26)
[2018-03-28] MEDS: morphine SULFATE 4 MG/ML VIAL IVPUSH PRN (03:11)
[2018-03-28] MEDS: INSULIN SLIDING SCALE (NOVOLOG) 1 VIAL SQ SCH ×4 (06:10→21:42)
[2018-03-28 06:37] LABS: HEMATOCRIT 32.3 % (35.4-49); HEMOGLOBIN 10.7 GM/dL (11.7-16.9); MCH 29.9 pg (25.7-33.7); MCHC 33.1 g/dl (32.0-35.9); MEAN CELL VOLUME 90.5 fl (80-96); PLATELET COUNT 428 K/MM3 (134-434); RBC 3.57 M/mm3 (4.00-5.60); RDW 14.5 % (11.9-15.9); WHITE BLOOD COUNT 12.9 K/mm3 (4.0-10.0)
[2018-03-28 07:09] LABS: ANION GAP 6 (8-16); BLOOD UREA NITROGEN 31 mg/dL (7-18); CALCIUM 7.3 mg/dL (8.5-10.1); CHLORIDE 104 mmol/L (98-107); CO2 29 mmol/L (21-32); GLUCOSE,RANDOM 237 mg/dL (74-106); POTASSIUM 4.1 mmol/L (3.5-5.1); SODIUM 139 mmol/L (136-145)
[2018-03-28 07:14] LABS: ALK PHOS 159 U/L (45-117); BILIRUBIN,TOTAL 2.2 mg/dL (0.2-1.0); CREATININE 0.5 mg/dL (0.7-1.3); PHOSPHOROUS 2.2 mg/dL (2.5-4.9); SGOT/AST 68 U/L (15-37); SGPT/ALT 78 U/L (12-78); TOT PROT 4.9 g/dl (6.4-8.2)
--- NOTE | 2018-03-28 07:23 | PN ---
Physical Exam: SUBJECTIVE: No acute events overnight. No events noted on monitor. Pt remains intubated without sedation. Does not respond to commands but alert to spontaneous stimuli by opening eyes OBJECTIVE: Vital Signs Period Temp Pulse Resp BP Sys/Ceballos Pulse Ox Last 24 Hr 99.5 F-100.3 F 78-102 24-32 98-139/49-64 95-99 GENERAL: NAD, intubated, opens eyes and tracks around room, no commands listened to HEENT: KITTY, pupil size 3-4mm, NG in place, dry-moist MM, ETT noted Neck: L IJ line site C/D/I, no JVD LUNGS: Coarse b/l breath sounds at base remains. AC mode: TV 420, PEEP 5, FiO2 40%, RR 12 HEART: RRR, S1, S2 without murmur ABDOMEN: Soft, nondistended, nontender, Midline incision C/D/I, C-tube draining dark fluid EXTREMITIES: 2+ DP pulses, warm, 1+ ankle edema improved SKIN: Warm, dry, no rash or lesions currently Laboratory Results - last 24 hr 03/27/18 03/27/18 03/28/18 12:15 16:06 05:15 WBC RBC Hgb Hct MCV MCH MCHC RDW Plt Count MPV PTT (Actin FS) 57.1 H Sodium Potassium Chloride Carbon Dioxide Anion Gap BUN Creatinine Creat Clearance w eGFR POC Glucometer [phone] Random Glucose Calcium Phosphorus Magnesium Total Bilirubin AST ALT Alkaline Phosphatase Total Protein Albumin 03/28/18 03/28/18 05:15 05:15 WBC 12.9 H RBC 3.57 L Hgb 10.7 L Hct 32.3 L MCV 90.5 MCH 29.9 MCHC 33.1 RDW 14.5 Plt Count 428 MPV 11.0 PTT (Actin FS) Sodium 139 Potassium 4.1 Chloride 104 Carbon Dioxide 29 Anion Gap 6 L BUN 31 H Creatinine 0.5 L D Creat Clearance w eGFR > 60 POC Glucometer Random Glucose 237 H Calcium 7.3 L Phosphorus 2.2 L Magnesium 2.0 Total Bilirubin 2.2 H AST 68 H ALT 78 Alkaline Phosphatase 159 H Total Protein 4.9 L Albumin 1.0 L Active Medications Generic Name Dose Route Start Last Admin Trade Name Freq PRN Reason Stop Dose Admin Acetaminophen 650 mg 03/27/18 13:00 03/27/18 22:39 Tylenol Oral Solution - PO 650 mg Q6H PRN Administration FEVER Amino Acids 30 ml 03/24/18 13:00 03/27/18 10:36 Prosource No Carb Liquid Pkt PO 30 ml DAILY [facility] Administration Artificial Tears 1 drop 03/24/18 10:59 03/24/18 13:23 Artificial Tears OU 1 drop BID PRN Administration DRY EYES Chlorhexidine Gluconate 15 ml 03/13/18 10:00 03/27/18 22:02 Peridex - MM 15 ml BID [facility]Y Administration Chlorhexidine Gluconate 1 applic 03/13/18 22:00 03/27/18 22:02 Hibiclens For Decolonization - TP 1 applic HS JUDY Administration Heparin Sodium (Porcine) 1,000 unit 03/20/18 14:07 03/25/18 17:00 Heparin - IVPUSH 1,000 unit PRN PRN Administration Heparin Heparin Sodium (Porcine) 5,000 unit 03/20/18 14:07 Heparin - IVPUSH PRN PRN Heparin Meropenem 1 gm/ Dextrose 100 mls @ 200 mls/hr 03/19/18 18:00 03/28/18 01:06 IVPB 200 mls/hr Q8H-IV [facility] Administration HEPARIN SOD,PORK IN 0.45% NACL 25,000 units in 500 mls @ 20 mls/hr 03/20/18 14 :15 03/27/18 15:52 Heparin-1/2ns 25,000 Units/500 IVPB Not Given TITR JUDY Protocol 1,000 UNITS/HR Vancomycin HCl 1,500 mg/ 500 mls @ 250 mls/hr 03/25/18 15:00 03/27/18 15:54 Dextrose IVPB 250 mls/hr Q24H [facility] Administration Protocol Insulin Aspart 1 vial 03/23/18 11:00 03/28/18 06:10 Novolog Vial Sliding Scale - SQ 6 units ACHS [facility] Administration Protocol Morphine Sulfate 3 mg 03/27/18 11:25 03/28/18 03:11 Morphine Sulfate IVPUSH 3 mg Q2H PRN Administration PAIN LEVEL 4 - 6 Ondansetron HCl 4 mg 03/13/18 04:30 Zofran Injection IVPUSH Q6H PRN NAUSEA Pantoprazole Sodium 40 mg 03/13/18 10:00 03/27/18 10:37 Protonix Iv IVPUSH 40 mg DAILY [facility] Administration ASSESSMENT/PLAN: 1) Acute hypoxic respiratory failure --Vent settings unchanged --Head CT negative --EMG performed consistent with ICU neuropathy making it difficult to wean currently --Consult cardiothoracic: Dr. Calhoun --Potential trach Friday @10; stop feeds Friday night; hold heparin 6 hours prior --Discussed with ICU team who will attempt weaning trial today --Lasix 40mg IVP once per ICU team --Maintain SpO2 >90% 2) Septic shock 2/2 to bowel ischemia in addition to aspiration PNA --Remains off pressors --ID on board --Meropenem to continue --Vancomycin 1.25gm qDaily --WBC decreased today; continue to monitor --May be possible to descalate antibiotics due to lack of fevers for 48hrs ? 3) Elevated LFTs --Bilirubin downtrending dramatically today --C-tube in place draining bile 4) Atrial flutter/fib --Cardiology consulted --Heparin gtt remains; monitor aPtt --Echo unremarkable FEN: Fluids: Avoid Electrolyte abnormalities: Hypophosphatemia; (repleted NaPhos); pseudohypocalcemia Nutrition: NGT feeds ongoing; rate 50 with prosource on board PPX: DVT - Heparin gtt on already GI - Protonix 40mg IVP daily Dispo: Continue ICU monitoring Case discussed with Dr. Mati White, DO - IM PGY-1 Visit type - Emergency Visit Emergency Visit: No - New Patient This patient is new to me today: No - Critical Care Critical Care patient: Yes Total Critical Care Time (in minutes): 40 Critical Care Statement: The care of this patient involved high complexity decision making to prevent further life threatening deterioration of the patient 's condition and/or to evaluate & treat vital organ system(s) failure or risk of failure.
[2018-03-28] MEDS: HEPARIN SOD,PORK IN 0.45% NACL 25,000 UNITS/500 ML INFUS.BAG IVPB SCH ×3 (07:47→16:26)
--- NOTE | 2018-03-28 08:25 | PN ---
Teaching Attending Note Name of Resident: Mukul White ATTENDING PHYSICIAN STATEMENT I saw and evaluated the patient. I reviewed the resident's note and discussed the case with the resident. I agree with the resident's findings and plan as documented. SUBJECTIVE: no events over night . unable to obtain hx OBJECTIVE: Intubated, opens eye to verbal stimuli , but does not follow commands .round equal pupils 3 mm in diameter, reactive to light . CV: RRR. Lungs; clear anteriorly, decreased breath sounds at bases Abd: + BS. mid line surgical wound with panda. Ext: 1+ edema on LE ASSESSMENT AND PLAN: Unfortunate 82 y/o gentleman with h/o DJD, GERD, diverticulosis and other medical problems who presented with abd pain and was found to have SBO with bowel ischemia , and incarcerated hernia and developed acute resp failure and septic shock. 1- Acute hypoxic resp failure. due to severe sepsis and b/l PNA /ARDS. still not able to wean off vent - possible trach on Friday - cont mechanical ventilation and weaning trials 2- Septic shock. improved - cont Abx - next vanco trough today at 2:10 om - WBC improved . cont to monitor . No fever 3- Ischemic bowel and incarcerated inguinal hernia : s/p exploratory laparotomy and partial small bowel resection. 4- Possible acalculus cholecystitis : s/p cholecystostomy tube -monitor LFTS .stable 5-New onset A flutter/A fib : now in sinus rhythm. Likely stress induced but can't r/o PAF - cont heparin gtt . will switch to po AC once no further surgical intervention is indicated or planned - rate controlled 6- R IJ thrombus /DVT: - cont heparin gtt 7- Decreased level of consciousness : no CT changes. monitor off sedation 8- ICU neuropathy. PT and monitor PX: PPI and on heparin gtt ASSESSMENT AND PLAN: Critical Care Total Critical Care Time (in minutes): 35 Critical Care Statement: The care of this patient involved high complexity decision making to prevent further life threatening deterioration of the patient 's condition and/or to evaluate & treat vital organ system(s) failure or risk of failure.
[2018-03-28] MEDS ORDERED: SODIUM PHOSPHATE - 30 MM in DEXTROSE 5%-WATER - 250 ML IVPB ONE (09:15)
--- NOTE | 2018-03-28 09:26 | PN ---
Progress Note (short form) - Note Progress Note: SUBJECTIVE: Patient seen and examined in the ICU. 24Hr: -more awake -respirations improving -low grade temp 99 CXR: diffuse airspace disease c/w resolving ARDs OBJECTIVE: Vital Signs Temp 99.7 F H 03/28/18 08:00 Pulse 93 H 03/28/18 08:26 Resp 27 H 03/28/18 08:33 BP 127/62 03/28/18 08:00 Pulse Ox 97 03/28/18 08:33 Intake & Output 03/27/18 03/27/18 03/28/18 11:59 23:59 11:59 Intake Total 652 1922 1132 Output Total 650 1462 660 Balance 2 460 472 Weight 78.471 kg 77.02 kg Intake: IV 182 312 312 HEPARIN-1/2NS 25,000 182 312 312 UNITS/500 25,000 units In 500 ml @ 1,000 UNITS/HR 20 mls/hr IVPB TITR [facility] Rx#:[id number] IVPB 100 950 100 Tube Feeding 300 550 600 Tube Irrigant 70 110 120 Output: Drainage 50 62 60 Right Upper Abdomen 50 62 60 Urine 600 1400 600 Scott 600 1400 600 Other: Voiding Method Indwelling Catheter Indwelling Catheter Indwelling Catheter Bowel Movement No Weight Measurement Method Built in Bedscale Built in Bedscale Active Medications Amino Acids (Prosource No Carb Liquid Pkt) 30 ml PO DAILY [facility] Last Admin: 03/27/18 10:36 Dose: 30 ml Artificial Tears (Artificial Tears) 1 drop OU BID PRN PRN Reason: DRY EYES Last Admin: 03/24/18 13:23 Dose: 1 drop Chlorhexidine Gluconate (Peridex -) 15 ml MM BID [facility] Last Admin: 03/27/18 10:37 Dose: 15 ml Chlorhexidine Gluconate (Hibiclens For Decolonization -) 1 applic TP HS [facility] Last Admin: 03/26/18 21:57 Dose: 1 applic Heparin Sodium (Porcine) (Heparin -) 1,000 unit IVPUSH PRN PRN PRN Reason: Heparin Last Admin: 03/25/18 17:00 Dose: 1,000 unit Heparin Sodium (Porcine) (Heparin -) 5,000 unit IVPUSH PRN PRN PRN Reason: Heparin Meropenem 1 gm/ Dextrose 100 mls @ 200 mls/hr IVPB Q8H-IV [facility] Last Admin: 03/27/18 10:37 Dose: 200 mls/hr HEPARIN SOD,PORK IN 0.45% NACL (Heparin-1/2ns 25,000 Units/500) 25,000 units in 500 mls @ 20 mls/hr IVPB TITR [facility]; Protocol Last Admin: 03/25/18 17:00 Dose: 1,300 units/hr, 26 mls/hr Vancomycin HCl 1,500 mg/ (Dextrose) 500 mls @ 250 mls/hr IVPB Q24H [facility]; Protocol Last Admin: 03/26/18 14:27 Dose: 250 mls/hr Sodium Phosphate 30 mm/ (Dextrose) 260 mls @ 52 mls/hr IVPB ONCE ONE Stop: 03/27/18 13:59 Insulin Aspart (Novolog Vial Sliding Scale -) 1 vial SQ ACHS [facility]; Protocol Last Admin: 03/27/18 06:28 Dose: 6 units Morphine Sulfate (Morphine Sulfate) 3 mg IVPUSH Q2H PRN PRN Reason: PAIN LEVEL 4 - 6 Last Admin: 03/27/18 11:56 Dose: 3 mg Ondansetron HCl (Zofran Injection) 4 mg IVPUSH Q6H PRN PRN Reason: NAUSEA Pantoprazole Sodium (Protonix Iv) 40 mg IVPUSH DAILY [facility] Last Admin: 03/27/18 10:37 Dose: 40 mg Gen: Intubated, awake, intermittent follow Heart: RRR Lung: scattered rhonchi, TV 400 on PS 8 Abd: soft, nontender Ext: + dependent edema, much improved CBCD WBC 12.9 K/mm3 (4.0-10.0) H 03/28/18 05:15 RBC 3.57 M/mm3 (4.00-5.60) L 03/28/18 05:15 Hgb 10.7 GM/dL (11.7-16.9) L 03/28/18 05:15 Hct 32.3 % (35.4-49) L 03/28/18 05:15 MCV 90.5 fl (80-96) 03/28/18 05:15 MCHC 33.1 g/dl (32.0-35.9) 03/28/18 05:15 RDW 14.5 % (11.9-15.9) 03/28/18 05:15 Plt Count 428 K/MM3 (134-434) 03/28/18 05:15 MPV 11.0 fl (7.5-11.1) 03/28/18 05:15 CMP Sodium 139 mmol/L (136-145) 03/28/18 05:15 Potassium 4.1 mmol/L (3.5-5.1) 03/28/18 05:15 Chloride 104 mmol/L (98-107) 03/28/18 05:15 Carbon Dioxide 29 mmol/L (21-32) 03/28/18 05:15 Anion Gap 6 (8-16) L 03/28/18 05:15 BUN 31 mg/dL (7-18) H 03/28/18 05:15 Creatinine 0.5 mg/dL (0.7-1.3) L D 03/28/18 05:15 Creat Clearance w eGFR > 60 (>60) 03/28/18 05:15 Calcium 7.3 mg/dL (8.5-10.1) L 03/28/18 05:15 Total Bilirubin 2.2 mg/dL (0.2-1.0) H 03/28/18 05:15 AST 68 U/L (15-37) H 03/28/18 05:15 ALT 78 U/L (12-78) 03/28/18 05:15 Alkaline Phosphatase 159 U/L (45-117) H 03/28/18 05:15 Total Protein 4.9 g/dl (6.4-8.2) L 03/28/18 05:15 Albumin 1.0 g/dl (3.4-5.0) L 03/28/18 05:15 ASSESSMENT AND PLAN: CIP Acute Hypoxic Respiratory Failure Aspiration Pneumonia ARDS resolving Incarcerated Inguinal Hernia s/p ex-lap/segmental terminal ileum resection/primary anastamosis 03/13 Suspected Acalculus Cholecystitis s/p percutaneous cholecystostomy Septic Shock resolving Acute Kidney Injury improving Lactic Acidosis resolved New onset Paroxysmal Atrial Fibrillation Diverticulosis BPH - antibiotics per ID - rate controlled - continue anticoagulation - Daily assessment for need for lasix - monitor urine output, creatinine - Maintain low tidal volume ventilation - keep Pplat <30 (today 15) - taper FiO2, PEEP to keep SpO2 >90% - minimize sedation to assess mental status - enteral feeds - DVT/GI prophylaxis - continue ICU monitoring - Will attempt trial of extubation based on ABG 7.5/36/96 on PS 6 and 40%, TV 450, discussed risks with family extensively, they are very interested in giving pt a chance at avoiding Trach. Discussed possibility of reintubation, cardiac arrest, . They understand risks and were able to reiterate. ABG Results ABG pH 7.51 (7.35-7.45) H 03/28/18 10:50 ABG pCO2 at Pt Temp 36.4 mmHg (35-45) D 03/28/18 10:50 ABG pO2 at Pt Temp 96.3 mmHg (68-100) 03/28/18 10:50 ABG HCO3 28.6 meq/L (22-26) H 03/28/18 10:50 ABG O2 Sat (Measured) 98.4 % (90-98.9) 03/28/18 10:50 ABG O2 Content 14.2 % vol (15-22) L 03/28/18 10:50 ABG Base Excess 5.5 meq/l (-2-2) H 03/28/18 10:50 Svetlana [facility] [id number]
[2018-03-28] MEDS ORDERED: FUROSEMIDE 40 MG/4 ML INJECTABLE VIAL IVPUSH ONE (10:15)
[2018-03-28] MEDS ORDERED: PT OWN MED DRAWER 7, Y5N ONE ×2 (10:30→17:10)
[2018-03-28] MEDS: PANTOPRAZOLE SODIUM 40 MG VIAL IVPUSH SCH (10:32)
[2018-03-28] MEDS: CHLORHEXIDINE GLUCONATE 0.12% 15ML CUP MM SCH ×2 (10:32→21:43)
[2018-03-28] MEDS: AMINO ACIDS/PROTEIN HYDROLYS 30 ML LIQUID.PKT PO SCH (10:40)
[2018-03-28 10:54] LABS: ARTERIAL BLD GAS O2 SATURATION 98.4 % (90-98.9); ARTERIAL BLOOD GAS BASE EXCESS 5.5 meq/l (-2-2); ARTERIAL BLOOD GAS PCO2 36.4 mmHg (35-45); ARTERIAL BLOOD GAS PO2 96.3 mmHg (68-100); ARTERIAL BLOOD GAS pH 7.51 (7.35-7.45)
[2018-03-28 11:00] LABS: ALLENS TEST POSITIVE
--- NOTE | 2018-03-28 11:42 | PN ---
Progress Note, Physician History of Present Illness: No Events Tele: Sinus tach to 100 - Current Medication List Current Medications: Active Medications Acetaminophen (Tylenol Oral Solution -) 650 mg PO Q6H PRN PRN Reason: FEVER Last Admin: 03/27/18 22:39 Dose: 650 mg Amino Acids (Prosource No Carb Liquid Pkt) 30 ml PO DAILY JUDY Last Admin: 03/28/18 10:40 Dose: 30 ml Artificial Tears (Artificial Tears) 1 drop OU BID PRN PRN Reason: DRY EYES Last Admin: 03/24/18 13:23 Dose: 1 drop Chlorhexidine Gluconate (Peridex -) 15 ml MM BID JUDY Last Admin: 03/28/18 10:32 Dose: 15 ml Chlorhexidine Gluconate (Hibiclens For Decolonization -) 1 applic TP HS JUDY Last Admin: 03/27/18 22:02 Dose: 1 applic Heparin Sodium (Porcine) (Heparin -) 1,000 unit IVPUSH PRN PRN PRN Reason: Heparin Last Admin: 03/25/18 17:00 Dose: 1,000 unit Heparin Sodium (Porcine) (Heparin -) 5,000 unit IVPUSH PRN PRN PRN Reason: Heparin Meropenem 1 gm/ Dextrose 100 mls @ 200 mls/hr IVPB Q8H-IV JUDY Last Admin: 03/28/18 10:31 Dose: 200 mls/hr HEPARIN SOD,PORK IN 0.45% NACL (Heparin-1/2ns 25,000 Units/500) 25,000 units in 500 mls @ 20 mls/hr IVPB TITR JUDY; Protocol Last Admin: 03/28/18 10:51 Dose: 1,300 units/hr, 26 mls/hr Vancomycin HCl 1,500 mg/ (Dextrose) 500 mls @ 250 mls/hr IVPB Q24H [facility]Y; Protocol Last Admin: 03/27/18 15:54 Dose: 250 mls/hr Sodium Phosphate 30 mm/ (Dextrose) 260 mls @ 43.333 mls/hr IVPB ONCE ONE Stop: 03/28/18 15:14 Last Admin: 03/28/18 10:37 Dose: 43.333 mls/hr Insulin Aspart (Novolog Vial Sliding Scale -) 1 vial SQ ACHS JUDY; Protocol Last Admin: 03/28/18 06:10 Dose: 6 units Morphine Sulfate (Morphine Sulfate) 3 mg IVPUSH Q2H PRN PRN Reason: PAIN LEVEL 4 - 6 Last Admin: 03/28/18 03:11 Dose: 3 mg Ondansetron HCl (Zofran Injection) 4 mg IVPUSH Q6H PRN PRN Reason: NAUSEA Pantoprazole Sodium (Protonix Iv) 40 mg IVPUSH DAILY JUDY Last Admin: 03/28/18 10:32 Dose: 40 mg - Objective Vital Signs: Vital Signs Temperature 99.7 F H 03/28/18 08:00 Pulse Rate 90 03/28/18 10:00 Respiratory Rate 27 H 03/28/18 11:29 Blood Pressure 98/57 03/28/18 10:00 O2 Sat by Pulse Oximetry (%) 97 03/28/18 09:00 Constitutional: Yes: No Distress, Calm, Other (Intubated, awake) Eyes: Yes: WNL HENT: Yes: WNL Neck: Yes: WNL Cardiovascular: Yes: Regular Rate and Rhythm, Tachycardia Respiratory: Yes: CTA Bilaterally Gastrointestinal: Yes: Normal Bowel Sounds Extremities: Yes: WNL Edema: No Labs: CBC, BMP 03/28/18 05:15 03/28/18 05:15 INR, PTT INR 1.39 (0.82-1.09) H 03/20/18 05:55 Assessment/Plan a/p: 82 m hx gerd, bph, here with abd pain/sepsis - found to have sbo, now s/p OR hospital course c/b new afib. septic shock: -remains intubated, but now off levophed. bp stable. cont abx per ID - s/p IV lasix 03/21, 03/22, 03/24 - net negative 4L today 03/23, cxr slightly improved. hold lasix today and reassess need again tomorrow. - 03/25: holding lasix today. -03/28: Given lasix 40mg IV this AM, aiming for extubation today new pafib --> conversion to sr: -new onset here -rate controlled w/o meds. 03/25 converted to sr. -echo unremarkable -chadsvasc warrants ac. on hep gtt. -cont tele 03/28: Remains in NSR. on IV Heparin with therapeutic PTT at 57 sbo: -s/p surgery 03/13 -also with gall stones and s/p IR drain 03/20
--- NOTE | 2018-03-28 14:50 | PN ---
Progress Note, Physician History of Present Illness: Pt seen and examined, chart reviewed, results noted. Pt is more alert as per at bedside. Off levophed, extubated. Mild temp elevations. No acute distress noted. - Current Medication List Current Medications: Active Medications Acetaminophen (Tylenol Oral Solution -) 650 mg PO Q6H PRN PRN Reason: FEVER Last Admin: 03/27/18 22:39 Dose: 650 mg Amino Acids (Prosource No Carb Liquid Pkt) 30 ml PO DAILY JUDY Last Admin: 03/28/18 10:40 Dose: 30 ml Artificial Tears (Artificial Tears) 1 drop OU BID PRN PRN Reason: DRY EYES Last Admin: 03/24/18 13:23 Dose: 1 drop Chlorhexidine Gluconate (Peridex -) 15 ml MM BID JUDY Last Admin: 03/28/18 10:32 Dose: 15 ml Chlorhexidine Gluconate (Hibiclens For Decolonization -) 1 applic TP HS JUDY Last Admin: 03/27/18 22:02 Dose: 1 applic Heparin Sodium (Porcine) (Heparin -) 1,000 unit IVPUSH PRN PRN PRN Reason: Heparin Last Admin: 03/25/18 17:00 Dose: 1,000 unit Heparin Sodium (Porcine) (Heparin -) 5,000 unit IVPUSH PRN PRN PRN Reason: Heparin Meropenem 1 gm/ Dextrose 100 mls @ 200 mls/hr IVPB Q8H-IV JUDY Last Admin: 03/28/18 10:31 Dose: 200 mls/hr HEPARIN SOD,PORK IN 0.45% NACL (Heparin-1/2ns 25,000 Units/500) 25,000 units in 500 mls @ 20 mls/hr IVPB TITR JUDY; Protocol Last Admin: 03/28/18 10:51 Dose: 1,300 units/hr, 26 mls/hr Vancomycin HCl 1,500 mg/ (Dextrose) 500 mls @ 250 mls/hr IVPB Q24H [facility]; Protocol Last Admin: 03/27/18 15:54 Dose: 250 mls/hr Sodium Phosphate 30 mm/ (Dextrose) 260 mls @ 43.333 mls/hr IVPB ONCE ONE Stop: 03/28/18 15:14 Last Admin: 03/28/18 10:37 Dose: 43.333 mls/hr Insulin Aspart (Novolog Vial Sliding Scale -) 1 vial SQ ACHS [facility]; Protocol Last Admin: 03/28/18 12:25 Dose: 4 units Morphine Sulfate (Morphine Sulfate) 3 mg IVPUSH Q2H PRN PRN Reason: PAIN LEVEL 4 - 6 Last Admin: 03/28/18 03:11 Dose: 3 mg Ondansetron HCl (Zofran Injection) 4 mg IVPUSH Q6H PRN PRN Reason: NAUSEA Pantoprazole Sodium (Protonix Iv) 40 mg IVPUSH DAILY [facility] Last Admin: 03/28/18 10:32 Dose: 40 mg - Objective Vital Signs: Vital Signs Temperature 99.9 F H 03/28/18 12:00 Pulse Rate 97 H 03/28/18 12:30 Respiratory Rate 27 H 03/28/18 12:00 Blood Pressure 117/64 03/28/18 12:00 O2 Sat by Pulse Oximetry (%) 97 03/28/18 14:29 Constitutional: Yes: No Distress HENT: Yes: Other (+NGT) Cardiovascular: Yes: Tachycardia Respiratory: Yes: Regular Gastrointestinal: Yes: Normal Bowel Sounds, Soft Genitourinary: Yes: Scott Present Neurological: Yes: Other (arousable, weak, responsive) Labs: CBC, BMP 03/28/18 05:15 03/28/18 05:15 INR, PTT INR 1.39 (0.82-1.09) H 03/20/18 05:55 Microbiology 03/20/18 11:15 Peritoneal Fluid AFB Smear Concentration - Final 03/20/18 11:15 Peritoneal Fluid Mycobacterial Culture - Preliminary 03/20/18 11:15 Peritoneal Fluid Gram Stain - Final 03/20/18 11:15 Peritoneal Fluid Body Fluid Culture - Final NO GROWTH OF AEROBIC ORGANISMS AFTER 48 HOURS INCUBATION 03/20/18 11:15 Peritoneal Fluid Anaerobic Culture - Final NO ANAEROBES WERE ISOLATED 03/20/18 11:15 Peritoneal Fluid LAN Preparation - Preliminary 03/20/18 11:15 Peritoneal Fluid Fungal Culture - Preliminary 03/15/18 11:40 Blood - Central Line Blood Culture - Final NO GROWTH AFTER 5 DAYS INCUBATION 03/15/18 11:30 Blood - Central Line Blood Culture - Final NO GROWTH AFTER 5 DAYS INCUBATION 03/15/18 11:14 Blood - Peripheral Venous Blood Culture - Final NO GROWTH AFTER 5 DAYS INCUBATION 03/15/18 11:14 Blood - Peripheral Venous Blood Culture - Final NO GROWTH AFTER 5 DAYS INCUBATION 03/15/18 11:00 Sputum - Endotrachea Suction/Ventilator Gram Stain - Final 03/15/18 11:00 Sputum - Endotrachea Suction/Ventilator Sputum Culture - Final Klebsiella Oxytoca Serratia Marcescens Enterococcus Faecalis 03/16/18 16:00 Urine - Urine Scott Urine Culture - Final NO GROWTH OBTAINED 03/12/18 14:51 Blood - Peripheral Venous Blood Culture - Final NO GROWTH AFTER 5 DAYS INCUBATION 03/12/18 14:51 Blood - Peripheral Venous Blood Culture - Final NO GROWTH AFTER 5 DAYS INCUBATION 03/13/18 02:25 Peritoneal Fluid Gram Stain - Final 03/13/18 02:25 Peritoneal Fluid Body Fluid Culture - Final NO GROWTH OF AEROBIC ORGANISMS AFTER 48 HOURS INCUBATION 03/13/18 02:25 Peritoneal Fluid Anaerobic Culture - Final NO ANAEROBES WERE ISOLATED 03/12/18 22:12 Urine For Antigen Detection Legionella Antigen - Final 03/12/18 22:12 Urine For Antigen Detection Streptococcus pneumoniae Antigen (M - Final Problem List - Problems (1) Aspiration pneumonia of both lower lobes due to gastric secretions Code(s): J69.0 - PNEUMONITIS DUE TO INHALATION OF FOOD AND VOMIT (2) BPH (benign prostatic hyperplasia) Code(s): N40.0 - BENIGN PROSTATIC HYPERPLASIA WITHOUT LOWER URINRY TRACT SYMP Qualifiers: Lower urinary tract symptom presence: symptoms present Lower urinary tract symptom detail: urinary frequency Qualified Code(s): N40.1 - Benign prostatic hyperplasia with lower urinary tract symptoms; R35.0 - Frequency of micturition ; R35.0 - Frequency of micturition (3) DDD (degenerative disc disease), cervical Code(s): M50.30 - OTHER CERVICAL DISC DEGENERATION, UNSP CERVICAL REGION (4) Incarcerated left inguinal hernia Code(s): K40.30 - UNIL INGUINAL HERNIA, W OBST, W/O GANGR, NOT SPCF RECUR (5) SBO (small bowel obstruction) Code(s): K56.609 - UNSP INTESTNL OBST, UNSP TO PARTIAL VERSUS COMPLETE OBST (6) Strangulated inguinal hernia Code(s): K40.30 - UNIL INGUINAL HERNIA, W OBST, W/O GANGR, NOT SPCF RECUR Assessment/Plan s/p cholecystectomy septic shock leukocytosis fever -- pt now extubated, off levophed -- remains weak but more responsive -- wbc improved, mild temp elevations -- continue current antibiotics rest of care per ICU monitor closely cc time: 40 min
[2018-03-28] MEDS: VANCOMYCIN 1,500 MG in DEXTROSE 5%-WATER - 500 ML IVPB SCH (15:29)
[2018-03-28] MEDS: ACETAMINOPHEN 650 MG/20.3 ML ORAL SOLUTION (CUPS) PO PRN (18:26)
[2018-03-28] MEDS: CHLORHEXIDINE GLUCONATE 4% CLEANSER FOR DECOLONIZATION TP SCH (21:42)
[2018-03-29] MEDS: MEROPENEM 1 GM in DEXTROSE 5%-WATER 100 ML IVPB SCH ×3 (01:08→17:52)
[2018-03-29] MEDS ORDERED: VANCOMYCIN 1,000 MG in DEXTROSE 5%-WATER - 250 ML IVPB SCH (04:00)
[2018-03-29] MEDS ORDERED: VANCOMYCIN 1 GM PREMIX - 1 GM/200 ML BAG IVPB ONE (04:00)
[2018-03-29] MEDS: INSULIN SLIDING SCALE (NOVOLOG) 1 VIAL SQ SCH ×4 (06:06→23:50)
[2018-03-29 06:57] LABS: HEMOGLOBIN 10.6 GM/dL (11.7-16.9); MCH 30.5 pg (25.7-33.7); MCHC 34.2 g/dl (32.0-35.9); MEAN CELL VOLUME 89.2 fl (80-96); MEAN PLT VOLUME 10.4 fl (7.5-11.1); PLATELET COUNT 499 K/MM3 (134-434); RBC 3.48 M/mm3 (4.00-5.60); RDW 14.2 % (11.9-15.9); WHITE BLOOD COUNT 12.5 K/mm3 (4.0-10.0)
[2018-03-29 07:24] LABS: ANION GAP 9 (8-16); BLOOD UREA NITROGEN 30 mg/dL (7-18); CALCIUM 7.4 mg/dL (8.5-10.1); CHLORIDE 104 mmol/L (98-107); CO2 25 mmol/L (21-32); CREATININE 0.5 mg/dL (0.7-1.3); GLUCOSE,RANDOM 188 mg/dL (74-106); MAGNESIUM 2.1 mg/dL (1.8-2.4); POTASSIUM 3.7 mmol/L (3.5-5.1); SGOT/AST 53 U/L (15-37); SGPT/ALT 67 U/L (12-78); SODIUM 138 mmol/L (136-145)
[2018-03-29 07:27] LABS: ALK PHOS 150 U/L (45-117); BILIRUBIN,TOTAL 2.2 mg/dL (0.2-1.0); TOT PROT 4.9 g/dl (6.4-8.2)
--- NOTE | 2018-03-29 07:50 | PN ---
Progress Note (short form) - Note Progress Note: SUBJECTIVE: Patient seen and examined in the ICU. 24Hr: -extubated -negaive fluid balance -awake, following simple commands CXR: iimproving diffuse infiltrates OBJECTIVE: Active Medications Acetaminophen (Tylenol Oral Solution -) 650 mg PO Q6H PRN PRN Reason: FEVER Last Admin: 03/28/18 18:26 Dose: 650 mg Amino Acids (Prosource No Carb Liquid Pkt) 30 ml PO DAILY JUDY Last Admin: 03/28/18 10:40 Dose: 30 ml Artificial Tears (Artificial Tears) 1 drop OU BID PRN PRN Reason: DRY EYES Last Admin: 03/24/18 13:23 Dose: 1 drop Chlorhexidine Gluconate (Peridex -) 15 ml MM BID JUDY Last Admin: 03/28/18 21:43 Dose: Not Given Chlorhexidine Gluconate (Hibiclens For Decolonization -) 1 applic TP HS JUDY Last Admin: 03/28/18 21:42 Dose: 1 applic Heparin Sodium (Porcine) (Heparin -) 1,000 unit IVPUSH PRN PRN PRN Reason: Heparin Last Admin: 03/25/18 17:00 Dose: 1,000 unit Heparin Sodium (Porcine) (Heparin -) 5,000 unit IVPUSH PRN PRN PRN Reason: Heparin Meropenem 1 gm/ Dextrose 100 mls @ 200 mls/hr IVPB Q8H-IV JUDY Last Admin: 03/29/18 01:08 Dose: 200 mls/hr HEPARIN SOD,PORK IN 0.45% NACL (Heparin-1/2ns 25,000 Units/500) 25,000 units in 500 mls @ 20 mls/hr IVPB TITR JUDY; Protocol Last Titration: 03/29/18 07:37 Dose: 1,300 units/hr, 26 mls/hr Vancomycin HCl 1,000 mg/ (Dextrose) 250 mls @ 166.667 mls/hr IVPB Q12H [facility]; Protocol Insulin Aspart (Novolog Vial Sliding Scale -) 1 vial SQ ACHS JUDY; Protocol Last Admin: 03/29/18 06:06 Dose: 4 units Morphine Sulfate (Morphine Sulfate) 3 mg IVPUSH Q2H PRN PRN Reason: PAIN LEVEL 4 - 6 Last Admin: 03/28/18 03:11 Dose: 3 mg Ondansetron HCl (Zofran Injection) 4 mg IVPUSH Q6H PRN PRN Reason: NAUSEA Pantoprazole Sodium (Protonix Iv) 40 mg IVPUSH DAILY [facility] Last Admin: 03/28/18 10:32 Dose: 40 mg Active Medications Acetaminophen (Tylenol Oral Solution -) 650 mg PO Q6H PRN PRN Reason: FEVER Last Admin: 03/28/18 18:26 Dose: 650 mg Amino Acids (Prosource No Carb Liquid Pkt) 30 ml PO DAILY [facility] Last Admin: 03/28/18 10:40 Dose: 30 ml Artificial Tears (Artificial Tears) 1 drop OU BID PRN PRN Reason: DRY EYES Last Admin: 03/24/18 13:23 Dose: 1 drop Chlorhexidine Gluconate (Peridex -) 15 ml MM BID [facility] Last Admin: 03/28/18 21:43 Dose: Not Given Chlorhexidine Gluconate (Hibiclens For Decolonization -) 1 applic TP HS [facility] Last Admin: 03/28/18 21:42 Dose: 1 applic Heparin Sodium (Porcine) (Heparin -) 1,000 unit IVPUSH PRN PRN PRN Reason: Heparin Last Admin: 03/25/18 17:00 Dose: 1,000 unit Heparin Sodium (Porcine) (Heparin -) 5,000 unit IVPUSH PRN PRN PRN Reason: Heparin Meropenem 1 gm/ Dextrose 100 mls @ 200 mls/hr IVPB Q8H-IV JUDY Last Admin: 03/29/18 01:08 Dose: 200 mls/hr HEPARIN SOD,PORK IN 0.45% NACL (Heparin-1/2ns 25,000 Units/500) 25,000 units in 500 mls @ 20 mls/hr IVPB TITR [facility]; Protocol Last Titration: 03/29/18 07:37 Dose: 1,300 units/hr, 26 mls/hr Vancomycin HCl 1,000 mg/ (Dextrose) 250 mls @ 166.667 mls/hr IVPB Q12H [facility]; Protocol Insulin Aspart (Novolog Vial Sliding Scale -) 1 vial SQ ACHS [facility]; Protocol Last Admin: 03/29/18 06:06 Dose: 4 units Morphine Sulfate (Morphine Sulfate) 3 mg IVPUSH Q2H PRN PRN Reason: PAIN LEVEL 4 - 6 Last Admin: 03/28/18 03:11 Dose: 3 mg Ondansetron HCl (Zofran Injection) 4 mg IVPUSH Q6H PRN PRN Reason: NAUSEA Pantoprazole Sodium (Protonix Iv) 40 mg IVPUSH DAILY JUDY Last Admin: 03/28/18 10:32 Dose: 40 mg Gen: Extubated, RSB but not in distress Heart: RRR Lung: scattered rhonchi, strong cough, no wheezes Abd: soft, nontender, ND, +BS Ext: + dependent edema, much improved Neuro: follows simple commands, non focal, does not phonate (extremely hoarse) CBCD WBC 12.9 K/mm3 (4.0-10.0) H 03/28/18 05:15 RBC 3.57 M/mm3 (4.00-5.60) L 03/28/18 05:15 Hgb 10.7 GM/dL (11.7-16.9) L 03/28/18 05:15 Hct 32.3 % (35.4-49) L 03/28/18 05:15 MCV 90.5 fl (80-96) 03/28/18 05:15 MCHC 33.1 g/dl (32.0-35.9) 03/28/18 05:15 RDW 14.5 % (11.9-15.9) 03/28/18 05:15 Plt Count 428 K/MM3 (134-434) 03/28/18 05:15 MPV 11.0 fl (7.5-11.1) 03/28/18 05:15 CMP Sodium 139 mmol/L (136-145) 03/28/18 05:15 Potassium 4.1 mmol/L (3.5-5.1) 03/28/18 05:15 Chloride 104 mmol/L (98-107) 03/28/18 05:15 Carbon Dioxide 29 mmol/L (21-32) 03/28/18 05:15 Anion Gap 6 (8-16) L 03/28/18 05:15 BUN 31 mg/dL (7-18) H 03/28/18 05:15 Creatinine 0.5 mg/dL (0.7-1.3) L D 03/28/18 05:15 Creat Clearance w eGFR > 60 (>60) 03/28/18 05:15 Calcium 7.3 mg/dL (8.5-10.1) L 03/28/18 05:15 Total Bilirubin 2.2 mg/dL (0.2-1.0) H 03/28/18 05:15 AST 68 U/L (15-37) H 03/28/18 05:15 ALT 78 U/L (12-78) 03/28/18 05:15 Alkaline Phosphatase 159 U/L (45-117) H 03/28/18 05:15 Total Protein 4.9 g/dl (6.4-8.2) L 03/28/18 05:15 Albumin 1.0 g/dl (3.4-5.0) L 03/28/18 05:15 ASSESSMENT AND PLAN: CIP Acute Hypoxic Respiratory Failure Aspiration Pneumonia ARDS resolving Incarcerated Inguinal Hernia s/p ex-lap/segmental terminal ileum resection/primary anastamosis 03/13 Suspected Acalculus Cholecystitis s/p percutaneous cholecystostomy Septic Shock resolving Acute Kidney Injury improving Lactic Acidosis resolved New onset Paroxysmal Atrial Fibrillation Diverticulosis BPH - antibiotics per ID - rate controlled - continue anticoagulation - goal net neg 500 - monitor urine output, creatinine - HFNC to provide small amount of PEEP and decrease WOB - taper FiO2 - minimize sedation to assess mental status - enteral feeds, will need speech and swallow, possible FEES as unable to phonate after prolonged intubation - DVT/GI prophylaxis - continue ICU monitoring - Attempting trial of extubation based on ABG 7.5/36/96 on PS 6 and 40%, TV 450 , discussed risks with family extensively, they are very interested in giving pt a chance at avoiding Trach. Discussed possibility of reintubation, cardiac arrest, . They understand risks and were able to reiterate. Svetlana ACNP [id number]
[2018-03-29] MEDS ORDERED: HEMOQUE TEST 1 EACH EACH ONE (07:53)
[2018-03-29] MEDS ORDERED: FUROSEMIDE 40 MG/4 ML INJECTABLE VIAL IVPUSH ONE (08:30)
[2018-03-29] MEDS ORDERED: PT OWN MED DRAWER 7, Y5N ONE (08:49)
[2018-03-29] MEDS ORDERED: POTASSIUM PHOSPHATE 30 MM in SODIUM CHLORIDE 250 ML IVPB ONE (09:00)
--- NOTE | 2018-03-29 09:02 | PN ---
Progress Note (short form) - Note Progress Note: Subjective: unable to obtain hx as pt is not verbal yet . no events over night . was extubated yesterday . Objective: Vital Signs: Last Vital Signs Temp Pulse Resp BP Pulse Ox 99.9 F H 98 H 34 H 103/53 94 L 03/29/18 06:00 03/29/18 06:00 03/29/18 06:00 03/29/18 06:00 03/29/18 07:05 Laboratory Results - last 24 hr 03/28/18 03/28/18 03/28/18 10:50 12:00 14:50 WBC RBC Hgb Hct MCV MCH MCHC RDW Plt Count MPV PTT (Actin FS) ABG pH 7.51 H ABG pCO2 at Pt Temp 36.4 D ABG pO2 at Pt Temp 96.3 ABG HCO3 28.6 H ABG O2 Sat (Measured) 98.4 ABG O2 Content 14.2 L ABG Base Excess 5.5 H Fernando Test Positive O2 Delivery Device Other Oxygen Flow Rate 40% Vent Mode Spont psv +8 Mechanical Rate 840 PEEP 5.0 Sodium Potassium Chloride Carbon Dioxide Anion Gap BUN Creatinine Creat Clearance w eGFR POC Glucometer [phone] Random Glucose Calcium Phosphorus Magnesium Total Bilirubin AST ALT Alkaline Phosphatase Total Protein Albumin Vancomycin Pre-Dose 7.163 D 03/28/18 03/29/18 03/29/18 16:21 05:00 05:00 WBC 12.5 H RBC 3.48 L Hgb 10.6 L Hct 31.0 L MCV 89.2 MCH 30.5 MCHC 34.2 RDW 14.2 Plt Count 499 H MPV 10.4 PTT (Actin FS) ABG pH ABG pCO2 at Pt Temp ABG pO2 at Pt Temp ABG HCO3 ABG O2 Sat (Measured) ABG O2 Content ABG Base Excess Fernando Test O2 Delivery Device Oxygen Flow Rate Vent Mode Mechanical Rate PEEP Sodium 138 Potassium 3.7 Chloride 104 Carbon Dioxide 25 Anion Gap 9 BUN 30 H Creatinine 0.5 L Creat Clearance w eGFR > 60 POC Glucometer [phone] Random Glucose 188 H D Calcium 7.4 L Phosphorus 2.0 L Magnesium 2.1 Total Bilirubin 2.2 H AST 53 H D ALT 67 Alkaline Phosphatase 150 H Total Protein 4.9 L Albumin 1.0 L Vancomycin Pre-Dose 03/29/18 05:00 WBC RBC Hgb Hct MCV MCH MCHC RDW Plt Count MPV PTT (Actin FS) 57.6 H ABG pH ABG pCO2 at Pt Temp ABG pO2 at Pt Temp ABG HCO3 ABG O2 Sat (Measured) ABG O2 Content ABG Base Excess Fernando Test O2 Delivery Device Oxygen Flow Rate Vent Mode Mechanical Rate PEEP Sodium Potassium Chloride Carbon Dioxide Anion Gap BUN Creatinine Creat Clearance w eGFR POC Glucometer Random Glucose Calcium Phosphorus Magnesium Total Bilirubin AST ALT Alkaline Phosphatase Total Protein Albumin Vancomycin Pre-Dose Physical Exam: awake , follows some commands .wiggle toes, can't squeeze. tracks .round equal pupils 3 mm in diameter, reactive to light . CV: RRR. Lungs; clear anteriorly Abd: + BS. mid line surgical wound with panda. RUQ LEIF drain with brown fluid Ext: 1+ edema on LE ASSESSMENT AND PLAN: Unfortunate 82 y/o gentleman with h/o DJD, GERD, diverticulosis and other medical problems who presented with abd pain and was found to have SBO with bowel ischemia , and incarcerated hernia and developed acute resp failure and septic shock. 1- Acute hypoxic resp failure. due to severe sepsis and b/l PNA /ARDS. extubated yesterday - lasix today 2- Septic shock. resolved - cont Abx meropenem , and vanco - increased vanco dose due to low trough - follow ID Recs for possible deescalation 3- Ischemic bowel and incarcerated inguinal hernia : s/p exploratory laparotomy and partial small bowel resection. staple removal per Sx 4- Possible acalculus cholecystitis : s/p cholecystostomy tube -monitor LFTS .stable 5-New onset A flutter/A fib : now in sinus rhythm. - cont heparin gtt. will switch to po AC once no further surgical intervention is indicated or planned - rate controlled 6- R IJ thrombus /DVT: - cont heparin gtt 7- S/P extubation. non verbal yet. possible vocal cord paralysis or granulation tissue. risk fo raspiration - if no improvement , might need ENT eval - speech and swallow eval 8- ICU neuropathy. PT and monitor PX: PPI and on heparin gtt TF Visit type - Emergency Visit Emergency Visit: Yes ED Registration Date: 03/12/18 Care time: The patient presented to the Emergency Department on the above date and was hospitalized for further evaluation of their emergent condition. - New Patient This patient is new to me today: No - Critical Care Critical Care patient: Yes Total Critical Care Time (in minutes): 30 Critical Care Statement: The care of this patient involved high complexity decision making to prevent further life threatening deterioration of the patient 's condition and/or to evaluate & treat vital organ system(s) failure or risk of failure.
[2018-03-29] MEDS: PANTOPRAZOLE SODIUM 40 MG VIAL IVPUSH SCH (09:13)
[2018-03-29] MEDS: AMINO ACIDS/PROTEIN HYDROLYS 30 ML LIQUID.PKT PO SCH (09:14)
[2018-03-29] MEDS: ARTIFICIAL TEARS (POLYVINYL ALCOHOL 1.4%) OPTH DROPS OU PRN (09:14)
[2018-03-29] MEDS: CHLORHEXIDINE GLUCONATE 0.12% 15ML CUP MM SCH ×2 (09:17→22:12)
--- NOTE | 2018-03-29 09:54 | PN ---
Progress Note, Physician Chief Complaint: SBO History of Present Illness: 82 yo male PMH BPH, degernerative disc disease (cervical), diverticulosis, hemorrhoids presented to the ED with abdominal pain and vomiting for on day. He reports that he was weight training yesterday and developed some groin pain. 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 intermittent clinical improvement. - Current Medication List Current Medications: Active Medications Acetaminophen (Tylenol Oral Solution -) 650 mg PO Q6H PRN PRN Reason: FEVER Last Admin: 03/28/18 18:26 Dose: 650 mg Amino Acids (Prosource No Carb Liquid Pkt) 30 ml PO DAILY JUDY Last Admin: 03/29/18 09:14 Dose: 30 ml Artificial Tears (Artificial Tears) 1 drop OU BID PRN PRN Reason: DRY EYES Last Admin: 03/29/18 09:14 Dose: 1 drop Chlorhexidine Gluconate (Peridex -) 15 ml MM BID JUDY Last Admin: 03/29/18 09:17 Dose: Not Given Chlorhexidine Gluconate (Hibiclens For Decolonization -) 1 applic TP HS JUDY Last Admin: 03/28/18 21:42 Dose: 1 applic Heparin Sodium (Porcine) (Heparin -) 1,000 unit IVPUSH PRN PRN PRN Reason: Heparin Last Admin: 03/25/18 17:00 Dose: 1,000 unit Heparin Sodium (Porcine) (Heparin -) 5,000 unit IVPUSH PRN PRN PRN Reason: Heparin Meropenem 1 gm/ Dextrose 100 mls @ 200 mls/hr IVPB Q8H-IV JUDY Last Admin: 03/29/18 09:11 Dose: 200 mls/hr HEPARIN SOD,PORK IN 0.45% NACL (Heparin-1/2ns 25,000 Units/500) 25,000 units in 500 mls @ 20 mls/hr IVPB TITR JUDY; Protocol Last Titration: 03/29/18 07:37 Dose: 1,300 units/hr, 26 mls/hr Vancomycin HCl 1,000 mg/ (Dextrose) 250 mls @ 166.667 mls/hr IVPB Q12H JUDY; Protocol Potassium Phosphate 30 mm/ (Sodium Chloride) 260 mls @ 43.333 mls/hr IVPB ONCE ONE Stop: 03/29/18 14:59 Last Admin: 03/29/18 09:28 Dose: 43.333 mls/hr Insulin Aspart (Novolog Vial Sliding Scale -) 1 vial SQ ACHS [facility]; Protocol Last Admin: 03/29/18 06:06 Dose: 4 units Morphine Sulfate (Morphine Sulfate) 3 mg IVPUSH Q2H PRN PRN Reason: PAIN LEVEL 4 - 6 Last Admin: 03/28/18 03:11 Dose: 3 mg Ondansetron HCl (Zofran Injection) 4 mg IVPUSH Q6H PRN PRN Reason: NAUSEA Pantoprazole Sodium (Protonix Iv) 40 mg IVPUSH DAILY [facility] Last Admin: 03/29/18 09:13 Dose: 40 mg - Objective Vital Signs: Vital Signs Temperature 99.9 F H 03/29/18 06:00 Pulse Rate 98 H 03/29/18 06:00 Respiratory Rate 34 H 03/29/18 06:00 Blood Pressure 103/53 03/29/18 06:00 O2 Sat by Pulse Oximetry (%) 94 L 03/29/18 07:05 Vital Signs Period Temp Pulse Resp BP Sys/Ceballos Pulse Ox Last 24 Hr 99.6 F-100.2 F 90-101 19-34 98-119/50-64 92-97 Intake & Output 03/28/18 03/29/18 03/29/18 23:59 07:59 15:59 Intake Total 722 1142 Output Total 920 560 Balance -198 582 Weight 164 lb 9.6 oz Intake: IV 562 312 HEPARIN-1/2NS 25,000 312 312 UNITS/500 25,000 units In 500 ml @ 1,000 UNITS/HR 20 mls/hr IVPB TITR [facility] Rx#:[id number] Right forearm 250 IVPB 100 350 Tube Feeding 40 360 Tube Irrigant 20 120 Output: Drainage 120 60 Right Upper Abdomen 120 60 Urine 800 500 Quintero 800 500 Other: Voiding Method Indwelling Catheter Indwelling Catheter Bowel Movement No No Weight Measurement Method Built in [facility] Constitutional: Yes: Well Nourished, No Distress, Calm Eyes: Yes: Conjunctiva Clear, EOM Intact HENT: Yes: Atraumatic, Normocephalic Neck: Yes: Supple, Trachea Midline Cardiovascular: Yes: Regular Rate and Rhythm, S1, S2 Respiratory: Yes: Regular, CTA Bilaterally, On Nasal O2 (High flow NC), Rales Gastrointestinal: Yes: Normal Bowel Sounds, Soft. No: Tenderness ...Rectal Exam: Yes: Deferred Genitourinary: Yes: Quintero Present. No: CVA Tenderness - Left, CVA Tenderness - Right Musculoskeletal: Yes: Muscle Weakness Extremities: No: Cool, Cyanosis Edema: Yes Edema: LUE: 1+, RUE: 1+, LLE: 1+, RLE: 1+ Peripheral Pulses WNL: Yes Peripheral Pulses: Left Radial: 2+, Right Radial: 2+, Left Doralis Pedis: 2+, Right Dorsalis Pedis: 2+ Integumentary: No: Jaundice, Rash Wound/Incision: Yes: Clean/Dry, Well Approximated Neurological: Yes: Alert Psychiatric: Yes: Alert Labs: CBC, BMP 03/29/18 05:00 03/29/18 05:00 INR, PTT INR 1.39 (0.82-1.09) H 03/20/18 05:55 Problem List - Problems (1) Strangulated inguinal hernia Assessment/Plan: 82yo male MMP relatively healthy with SBO abdominal pain non reducible LIH, unclear transition point and no clear bowel ischemia identified. Bibasilar pulmonary consolidation and hoarsness may be a sequela of an aspiration. POD#17 s/p Exploratory Laparotomy, segmental ressection of SB and primary stapled anastomosis for strangulated RIH. low grade fevers persists. Patient has soft bowel movements. CT scan showed worsening consolidation of the lower lobes, SB anastomosis is intact, obstruction is relieved. CIP on EMG. Extubate on high flow NC. S/p percutaneous cholecystostomy in IR. No indication for repeat CTscan abdomen, feeds at goal, no distension, wound healing well, passing soft stool. ICU management continue quintero for I&O NGT feeds to goal for IBW Add Prostat TID IV antibiotics per ID GI and DVT prophylaxsis will follow peripherally This patient is critically ill. Time spent reviewing chart, examining patient, talking with providers and/or family and documentation is 45 minutes Code(s): K40.30 - UNIL INGUINAL HERNIA, W OBST, W/O GANGR, NOT SPCF RECUR (2) Incarcerated left inguinal hernia Code(s): K40.30 - UNIL INGUINAL HERNIA, W OBST, W/O GANGR, NOT SPCF RECUR (3) BPH (benign prostatic hyperplasia) Code(s): N40.0 - BENIGN PROSTATIC HYPERPLASIA WITHOUT LOWER URINRY TRACT SYMP Qualifiers: Lower urinary tract symptom presence: symptoms present Lower urinary tract symptom detail: urinary frequency Qualified Code(s): N40.1 - Benign prostatic hyperplasia with lower urinary tract symptoms; R35.0 - Frequency of micturition ; R35.0 - Frequency of micturition (4) DDD (degenerative disc disease), cervical Code(s): M50.30 - OTHER CERVICAL DISC DEGENERATION, UNSP CERVICAL REGION (5) SBO (small bowel obstruction) Code(s): K56.609 - UNSP INTESTNL OBST, UNSP TO PARTIAL VERSUS COMPLETE OBST (6) Aspiration pneumonia of both lower lobes due to gastric secretions Code(s): J69.0 - PNEUMONITIS DUE TO INHALATION OF FOOD AND VOMIT
--- NOTE | 2018-03-29 10:51 | PN ---
Progress Note, Physician History of Present Illness: Extubated yesterdat Tele: NSR to 100. (no AF) - Current Medication List Current Medications: Active Medications Acetaminophen (Tylenol Oral Solution -) 650 mg PO Q6H PRN PRN Reason: FEVER Last Admin: 03/28/18 18:26 Dose: 650 mg Amino Acids (Prosource No Carb Liquid Pkt) 30 ml PO DAILY JUDY Last Admin: 03/29/18 09:14 Dose: 30 ml Artificial Tears (Artificial Tears) 1 drop OU BID PRN PRN Reason: DRY EYES Last Admin: 03/29/18 09:14 Dose: 1 drop Chlorhexidine Gluconate (Peridex -) 15 ml MM BID JUDY Last Admin: 03/29/18 09:17 Dose: Not Given Chlorhexidine Gluconate (Hibiclens For Decolonization -) 1 applic TP HS JUDY Last Admin: 03/28/18 21:42 Dose: 1 applic Heparin Sodium (Porcine) (Heparin -) 1,000 unit IVPUSH PRN PRN PRN Reason: Heparin Last Admin: 03/25/18 17:00 Dose: 1,000 unit Heparin Sodium (Porcine) (Heparin -) 5,000 unit IVPUSH PRN PRN PRN Reason: Heparin Meropenem 1 gm/ Dextrose 100 mls @ 200 mls/hr IVPB Q8H-IV JUDY Last Admin: 03/29/18 09:11 Dose: 200 mls/hr HEPARIN SOD,PORK IN 0.45% NACL (Heparin-1/2ns 25,000 Units/500) 25,000 units in 500 mls @ 20 mls/hr IVPB TITR JUDY; Protocol Last Titration: 03/29/18 07:37 Dose: 1,300 units/hr, 26 mls/hr Vancomycin HCl 1,000 mg/ (Dextrose) 250 mls @ 166.667 mls/hr IVPB Q12H JUDY; Protocol Potassium Phosphate 30 mm/ (Sodium Chloride) 260 mls @ 43.333 mls/hr IVPB ONCE ONE Stop: 03/29/18 14:59 Last Admin: 03/29/18 09:28 Dose: 43.333 mls/hr Insulin Aspart (Novolog Vial Sliding Scale -) 1 vial SQ ACHS JUDY; Protocol Last Admin: 03/29/18 06:06 Dose: 4 units Morphine Sulfate (Morphine Sulfate) 3 mg IVPUSH Q2H PRN PRN Reason: PAIN LEVEL 4 - 6 Last Admin: 03/28/18 03:11 Dose: 3 mg Ondansetron HCl (Zofran Injection) 4 mg IVPUSH Q6H PRN PRN Reason: NAUSEA Pantoprazole Sodium (Protonix Iv) 40 mg IVPUSH DAILY JUDY Last Admin: 03/29/18 09:13 Dose: 40 mg - Objective Vital Signs: Vital Signs Temperature 99.9 F H 03/29/18 06:00 Pulse Rate 98 H 03/29/18 06:00 Respiratory Rate 34 H 03/29/18 09:00 Blood Pressure 103/53 03/29/18 06:00 O2 Sat by Pulse Oximetry (%) 91 L 03/29/18 10:47 Constitutional: Yes: Mild Distress, Other (On HFNC) Eyes: Yes: WNL HENT: Yes: WNL Neck: Yes: WNL Cardiovascular: Yes: Regular Rate and Rhythm, Tachycardia Respiratory: Yes: Rhonchi Gastrointestinal: Yes: Normal Bowel Sounds Musculoskeletal: Yes: WNL Extremities: Yes: WNL Edema: Yes Edema: LLE: 1+, RLE: 1+ Labs: CBC, BMP 03/29/18 05:00 03/29/18 05:00 INR, PTT INR 1.39 (0.82-1.09) H 03/20/18 05:55 Assessment/Plan a/p: 82 m hx gerd, bph, here with abd pain/sepsis - found to have sbo, now s/p OR hospital course c/b new afib. septic shock: -remains intubated, but now off levophed. bp stable. cont abx per ID - s/p IV lasix 03/21, 03/22, 03/24 - net negative 4L today 03/23, cxr slightly improved. hold lasix today and reassess need again tomorrow. - 03/25: holding lasix today. -03/28: Given lasix 40mg IV this AM, aiming for extubation today -03/29: Would continue Lasix 40mg IV QD as CXR appears with venous congestion new pafib --> conversion to sr: -new onset here -rate controlled w/o meds. 03/25 converted to sr. -echo unremarkable -chadsvasc warrants ac. on hep gtt. -cont tele 03/28: Remains in NSR. on IV Heparin with therapeutic PTT at 57 03/29: Remains in NSR. on IV Heparin with therapeutic PTT, would transition to NOAC (Eliquis 5mg PO BID) once more stable. sbo: -s/p surgery 03/13 -also with gall stones and s/p IR drain 03/20
--- NOTE | 2018-03-29 12:02 | PN ---
Progress Note, Physician History of Present Illness: Pt remains weak but more responsive. Still with mild temp elevations/ leukocytosis. - Current Medication List Current Medications: Active Medications Acetaminophen (Tylenol Oral Solution -) 650 mg PO Q6H PRN PRN Reason: FEVER Last Admin: 03/28/18 18:26 Dose: 650 mg Amino Acids (Prosource No Carb Liquid Pkt) 30 ml PO DAILY JUDY Last Admin: 03/29/18 09:14 Dose: 30 ml Artificial Tears (Artificial Tears) 1 drop OU BID PRN PRN Reason: DRY EYES Last Admin: 03/29/18 09:14 Dose: 1 drop Chlorhexidine Gluconate (Peridex -) 15 ml MM BID JUDY Last Admin: 03/29/18 09:17 Dose: Not Given Chlorhexidine Gluconate (Hibiclens For Decolonization -) 1 applic TP HS JUDY Last Admin: 03/28/18 21:42 Dose: 1 applic Furosemide (Lasix Injection -) 40 mg IVPUSH DAILY JUDY Heparin Sodium (Porcine) (Heparin -) 1,000 unit IVPUSH PRN PRN PRN Reason: Heparin Last Admin: 03/25/18 17:00 Dose: 1,000 unit Heparin Sodium (Porcine) (Heparin -) 5,000 unit IVPUSH PRN PRN PRN Reason: Heparin Meropenem 1 gm/ Dextrose 100 mls @ 200 mls/hr IVPB Q8H-IV JUDY Last Admin: 03/29/18 09:11 Dose: 200 mls/hr HEPARIN SOD,PORK IN 0.45% NACL (Heparin-1/2ns 25,000 Units/500) 25,000 units in 500 mls @ 20 mls/hr IVPB TITR JUDY; Protocol Last Titration: 03/29/18 07:37 Dose: 1,300 units/hr, 26 mls/hr Vancomycin HCl 1,000 mg/ (Dextrose) 250 mls @ 166.667 mls/hr IVPB Q12H JUDY; Protocol Potassium Phosphate 30 mm/ (Sodium Chloride) 260 mls @ 43.333 mls/hr IVPB ONCE ONE Stop: 03/29/18 14:59 Last Admin: 03/29/18 09:28 Dose: 43.333 mls/hr Insulin Aspart (Novolog Vial Sliding Scale -) 1 vial SQ ACHS JUDY; Protocol Last Admin: 03/29/18 06:06 Dose: 4 units Morphine Sulfate (Morphine Sulfate) 3 mg IVPUSH Q2H PRN PRN Reason: PAIN LEVEL 4 - 6 Last Admin: 03/28/18 03:11 Dose: 3 mg Ondansetron HCl (Zofran Injection) 4 mg IVPUSH Q6H PRN PRN Reason: NAUSEA Pantoprazole Sodium (Protonix Iv) 40 mg IVPUSH DAILY JUDY Last Admin: 03/29/18 09:13 Dose: 40 mg - Objective Vital Signs: Vital Signs Temperature 99.9 F H 03/29/18 10:00 Pulse Rate 102 H 03/29/18 10:00 Respiratory Rate 34 H 03/29/18 10:00 Blood Pressure 103/52 03/29/18 10:00 O2 Sat by Pulse Oximetry (%) 91 L 03/29/18 10:47 Constitutional: Yes: No Distress, Other (weak) Cardiovascular: Yes: Tachycardia Respiratory: Yes: Rhonchi Gastrointestinal: Yes: Normal Bowel Sounds, Soft (Rt cholecysotomy drain/ bilious fluid) Wound/Incision: Yes: Dressing Dry and Intact Neurological: Yes: Weakness Labs: CBC, BMP 03/29/18 05:00 03/29/18 05:00 INR, PTT INR 1.39 (0.82-1.09) H 03/20/18 05:55 Microbiology 03/20/18 11:15 Peritoneal Fluid AFB Smear Concentration - Final 03/20/18 11:15 Peritoneal Fluid Mycobacterial Culture - Preliminary 03/20/18 11:15 Peritoneal Fluid Gram Stain - Final 03/20/18 11:15 Peritoneal Fluid Body Fluid Culture - Final NO GROWTH OF AEROBIC ORGANISMS AFTER 48 HOURS INCUBATION 03/20/18 11:15 Peritoneal Fluid Anaerobic Culture - Final NO ANAEROBES WERE ISOLATED 03/20/18 11:15 Peritoneal Fluid LAN Preparation - Preliminary 03/20/18 11:15 Peritoneal Fluid Fungal Culture - Preliminary 03/15/18 11:40 Blood - Central Line Blood Culture - Final NO GROWTH AFTER 5 DAYS INCUBATION 03/15/18 11:30 Blood - Central Line Blood Culture - Final NO GROWTH AFTER 5 DAYS INCUBATION 03/15/18 11:14 Blood - Peripheral Venous Blood Culture - Final NO GROWTH AFTER 5 DAYS INCUBATION 03/15/18 11:14 Blood - Peripheral Venous Blood Culture - Final NO GROWTH AFTER 5 DAYS INCUBATION 03/15/18 11:00 Sputum - Endotrachea Suction/Ventilator Gram Stain - Final 03/15/18 11:00 Sputum - Endotrachea Suction/Ventilator Sputum Culture - Final Klebsiella Oxytoca Serratia Marcescens Enterococcus Faecalis 03/16/18 16:00 Urine - Urine Scott Urine Culture - Final NO GROWTH OBTAINED 03/12/18 14:51 Blood - Peripheral Venous Blood Culture - Final NO GROWTH AFTER 5 DAYS INCUBATION 03/12/18 14:51 Blood - Peripheral Venous Blood Culture - Final NO GROWTH AFTER 5 DAYS INCUBATION 03/13/18 02:25 Peritoneal Fluid Gram Stain - Final 03/13/18 02:25 Peritoneal Fluid Body Fluid Culture - Final NO GROWTH OF AEROBIC ORGANISMS AFTER 48 HOURS INCUBATION 03/13/18 02:25 Peritoneal Fluid Anaerobic Culture - Final NO ANAEROBES WERE ISOLATED 03/12/18 22:12 Urine For Antigen Detection Legionella Antigen - Final 03/12/18 22:12 Urine For Antigen Detection Streptococcus pneumoniae Antigen (M - Final Problem List - Problems (1) Aspiration pneumonia of both lower lobes due to gastric secretions Code(s): J69.0 - PNEUMONITIS DUE TO INHALATION OF FOOD AND VOMIT (2) BPH (benign prostatic hyperplasia) Code(s): N40.0 - BENIGN PROSTATIC HYPERPLASIA WITHOUT LOWER URINRY TRACT SYMP Qualifiers: Lower urinary tract symptom presence: symptoms present Lower urinary tract symptom detail: urinary frequency Qualified Code(s): N40.1 - Benign prostatic hyperplasia with lower urinary tract symptoms; R35.0 - Frequency of micturition ; R35.0 - Frequency of micturition (3) DDD (degenerative disc disease), cervical Code(s): M50.30 - OTHER CERVICAL DISC DEGENERATION, UNSP CERVICAL REGION (4) Incarcerated left inguinal hernia Code(s): K40.30 - UNIL INGUINAL HERNIA, W OBST, W/O GANGR, NOT SPCF RECUR (5) SBO (small bowel obstruction) Code(s): K56.609 - UNSP INTESTNL OBST, UNSP TO PARTIAL VERSUS COMPLETE OBST (6) Strangulated inguinal hernia Code(s): K40.30 - UNIL INGUINAL HERNIA, W OBST, W/O GANGR, NOT SPCF RECUR Assessment/Plan s/p cholecystomy drainage septic shock - improving, off pressors acute respiratory failure s/p extubation leukocytosis fever - still with low grade fevers, tachypneic - continue current antibiotics for now, will de-escalate if vitals stable - vitals being closely monitored -- continue current antibiotics rest of care per ICU, case discussed monitor closely cc time: 40 min
[2018-03-29] MEDS: HEPARIN SOD,PORK IN 0.45% NACL 25,000 UNITS/500 ML INFUS.BAG IVPB SCH (16:37)
[2018-03-29] MEDS: CHLORHEXIDINE GLUCONATE 4% CLEANSER FOR DECOLONIZATION TP SCH (22:12)
[2018-03-30] MEDS ORDERED: PT OWN MED DRAWER 7, Y5N ONE ×4 (01:13→19:02)
[2018-03-30] MEDS: MEROPENEM 1 GM in DEXTROSE 5%-WATER 100 ML IVPB SCH ×3 (01:19→18:05)
[2018-03-30] MEDS: INSULIN SLIDING SCALE (NOVOLOG) 1 VIAL SQ SCH ×4 (06:19→22:00)
[2018-03-30] MEDS: HEPARIN SOD,PORK IN 0.45% NACL 25,000 UNITS/500 ML INFUS.BAG IVPB SCH ×2 (06:20→18:49)
[2018-03-30 07:07] LABS: BASO % 1.1 % (0-2.0); EOS % 1.8 % (0-4.5); HEMATOCRIT 33.3 % (35.4-49); LYMPH % 19.6 % (8-40); MCH 29.9 pg (25.7-33.7); MCHC 33.1 g/dl (32.0-35.9); MEAN CELL VOLUME 90.3 fl (80-96); MEAN PLT VOLUME 10.9 fl (7.5-11.1); MONO % 6.8 % (3.8-10.2); NEUT % 70.7 % (42.8-82.8); PLATELET COUNT 495 K/MM3 (134-434); RBC 3.69 M/mm3 (4.00-5.60); RDW 14.3 % (11.9-15.9); WHITE BLOOD COUNT 11.8 K/mm3 (4.0-10.0)
--- NOTE | 2018-03-30 08:28 | PN ---
Physical Exam: SUBJECTIVE: Patient seen and examined by me at bedside. Remains extubated. No overnight events noted. Patient is awake and following commands, Was able to move his fingers. Patient currently on high flow oxygen 50% and saturating well. Lasix given yesterday with 2L output. Will hold Lasix for now and give PRN depending on daily chest x-rays. Family at bedside and had long discussion about physical therapy and where he will be going once patient is stable. With much discussion we decided to give [facility] facility a call out for possible transfer there. OBJECTIVE: Vital Signs Period Temp Pulse Resp BP Sys/Ceballos Pulse Ox Last 24 Hr 99.2 F-100.0 F 89-102 28-35 101-120/50-97 91-100 GENERAL: The patient is awake, Lethargic, following commands EYES: PERRL, sclera anicteric, conjunctiva clear. No ptosis. ENT: NG Tube placed LUNGS: Diffuse scattered rhonchi bilaterally with high flow 02 HEART: Regular rate and rhythm, S1, S2 without murmur, rub or gallop. ABDOMEN: Midline vertical surgical wound. Soft, nontender, nondistended, (+) bowel sounds. RUQ LEIF draining EXTREMITIES: 1+ pitting edema of LE bilaterally. NEUROLOGICAL: Unable to assess Laboratory Results - last 24 hr CBC, BMP 03/30/18 06:00 03/30/18 07:55 Active Medications Generic Name Dose Route Start Last Admin Trade Name Freq PRN Reason Stop Dose Admin Acetaminophen 650 mg 03/27/18 13:00 03/28/18 18:26 Tylenol Oral Solution - PO 650 mg Q6H PRN Administration FEVER Amino Acids 30 ml 03/24/18 13:00 03/29/18 09:14 Prosource No Carb Liquid Pkt PO 30 ml DAILY JUDY Administration Artificial Tears 1 drop 03/24/18 10:59 03/29/18 09:14 Artificial Tears OU 1 drop BID PRN Administration DRY EYES Chlorhexidine Gluconate 15 ml 03/13/18 10:00 03/29/18 22:12 Peridex - MM Not Given BID JUDY Chlorhexidine Gluconate 1 applic 03/13/18 22:00 03/29/18 22:12 Hibiclens For Decolonization - TP 1 applic HS JUDY Administration Furosemide 40 mg 03/30/18 10:00 Lasix Injection - IVPUSH DAILY JUDY Heparin Sodium (Porcine) 1,000 unit 03/20/18 14:07 03/25/18 17:00 Heparin - IVPUSH 1,000 unit PRN PRN Administration Heparin Heparin Sodium (Porcine) 5,000 unit 03/20/18 14:07 Heparin - IVPUSH PRN PRN Heparin Meropenem 1 gm/ Dextrose 100 mls @ 200 mls/hr 03/19/18 18:00 03/30/18 01:19 IVPB 200 mls/hr Q8H-IV JUDY Administration HEPARIN SOD,PORK IN 0.45% NACL 25,000 units in 500 mls @ 20 mls/hr 03/20/18 14 :15 03/30/18 06:20 Heparin-1/2ns 25,000 Units/500 IVPB 1,300 units/hr TITR JUDY 26 mls/hr Administration Protocol 1,000 UNITS/HR Vancomycin HCl 1,000 mg/ 250 mls @ 166.667 mls/hr 03/29/18 04:00 Dextrose IVPB Q12H JUDY Protocol Insulin Aspart 1 vial 03/23/18 11:00 03/30/18 06:19 Novolog Vial Sliding Scale - SQ 4 units ACHS JUDY Administration Protocol Morphine Sulfate 3 mg 03/27/18 11:25 03/28/18 03:11 Morphine Sulfate IVPUSH 3 mg Q2H PRN Administration PAIN LEVEL 4 - 6 Ondansetron HCl 4 mg 03/13/18 04:30 Zofran Injection IVPUSH Q6H PRN NAUSEA Pantoprazole Sodium 40 mg 03/13/18 10:00 03/29/18 09:13 Protonix Iv IVPUSH 40 mg DAILY JUDY Administration ASSESSMENT/PLAN: Patient is an 82 year old male who presented with abdominal pain and was found to have SBO with bowel ischemia from incarcerated hernia and developed acute respiratory failure from septic shock. Patient admitted for further monitoring and management. Pulm: #Acute Hypoxic Respiratory Failure -Likely secondary to Septic shock from Bowel ischemia and Aspiration PNA -Patient s/p extubation (03/28) and saturating well on high flow volume 50%. Patient remains non-verbal possibly due to vocal cord paralysis/Laryngeal edema/ scar or granluation tissue. Speech and Swallow recommend NPO -Will hold Lasix for now as patients x-ray does not show congestion. Give Lasix PRN -Maintain SpO2 >90% -Incentive spirometer ordered ID: #Septic Shock secondary to SBO and bowel Ischemia -WBC trending down. Afebrile -Patient remains off pressors -Continue Meropenem 1gm Q8H (DAY #11) and vancomycin 1gm daily. -Will follow up with ID for deescalation of Abx GI: #Ischemic bowel and incarcerated inguinal Hernia -s/p ex lap and partial bowel resection (03/13) -Stables removed today by [facility] #Elevated LFT's -Bilirubin slightly elevated today. Will continue to monitor -C-TUBE in place and continues to drain bile -Continue to monitor LFT's Cardio: #New onset Atrial Flutter/Atrial Fibrillation -Currently rate controlled and in normal sinus rhythm -Will continue Heparin drip with future plans to bridge with oral AC Vascular: #Right IJ thrombus -Patient currently on Heparin Drip Neuro: #Critical Illness Neuropathy -Continue physical therapy F/E/N -On no fluids -Electrolytes wnl -NPO on NGT feeds Prophylaxis -Heparin drip for DVT -Protonix 40mg IVP daily for GI Disposition -Full code -Will call [facility] for evaluation and possible transfer there for extensive PT Case Discussed with Dr. Josh Drake [id number] Visit type - Emergency Visit Emergency Visit: Yes ED Registration Date: 03/12/18 Care time: The patient presented to the Emergency Department on the above date and was hospitalized for further evaluation of their emergent condition. - New Patient This patient is new to me today: Yes Date on this admission: 03/30/18 - Critical Care Critical Care patient: Yes Total Critical Care Time (in minutes): 45 Critical Care Statement: The care of this patient involved high complexity decision making to prevent further life threatening deterioration of the patient 's condition and/or to evaluate & treat vital organ system(s) failure or risk of failure.
--- NOTE | 2018-03-30 08:45 | PN ---
Progress Note, Physician Chief Complaint: SBO History of Present Illness: 82 yo male PMH BPH, degernerative disc disease (cervical), diverticulosis, hemorrhoids presented to the ED with abdominal pain and vomiting for on day. He reports that he was weight training yesterday and developed some groin pain. 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 intermittent clinical improvement. - Current Medication List Current Medications: Active Medications Acetaminophen (Tylenol Oral Solution -) 650 mg PO Q6H PRN PRN Reason: FEVER Last Admin: 03/28/18 18:26 Dose: 650 mg Amino Acids (Prosource No Carb Liquid Pkt) 30 ml PO DAILY JUDY Last Admin: 03/29/18 09:14 Dose: 30 ml Artificial Tears (Artificial Tears) 1 drop OU BID PRN PRN Reason: DRY EYES Last Admin: 03/29/18 09:14 Dose: 1 drop Chlorhexidine Gluconate (Peridex -) 15 ml MM BID JUDY Last Admin: 03/29/18 22:12 Dose: Not Given Chlorhexidine Gluconate (Hibiclens For Decolonization -) 1 applic TP HS JUDY Last Admin: 03/29/18 22:12 Dose: 1 applic Furosemide (Lasix Injection -) 40 mg IVPUSH DAILY JUDY Heparin Sodium (Porcine) (Heparin -) 1,000 unit IVPUSH PRN PRN PRN Reason: Heparin Last Admin: 03/25/18 17:00 Dose: 1,000 unit Heparin Sodium (Porcine) (Heparin -) 5,000 unit IVPUSH PRN PRN PRN Reason: Heparin Meropenem 1 gm/ Dextrose 100 mls @ 200 mls/hr IVPB Q8H-IV JUDY Last Admin: 03/30/18 01:19 Dose: 200 mls/hr HEPARIN SOD,PORK IN 0.45% NACL (Heparin-1/2ns 25,000 Units/500) 25,000 units in 500 mls @ 20 mls/hr IVPB TITR JUDY; Protocol Last Admin: 03/30/18 06:20 Dose: 1,300 units/hr, 26 mls/hr Vancomycin HCl 1,000 mg/ (Dextrose) 250 mls @ 166.667 mls/hr IVPB Q12H JUDY; Protocol Insulin Aspart (Novolog Vial Sliding Scale -) 1 vial SQ ACHS JUDY; Protocol Last Admin: 03/30/18 06:19 Dose: 4 units Morphine Sulfate (Morphine Sulfate) 3 mg IVPUSH Q2H PRN PRN Reason: PAIN LEVEL 4 - 6 Last Admin: 03/28/18 03:11 Dose: 3 mg Ondansetron HCl (Zofran Injection) 4 mg IVPUSH Q6H PRN PRN Reason: NAUSEA Pantoprazole Sodium (Protonix Iv) 40 mg IVPUSH DAILY [facility] Last Admin: 03/29/18 09:13 Dose: 40 mg - Objective Vital Signs: Vital Signs Temperature 99.4 F 03/30/18 08:00 Pulse Rate 95 H 03/30/18 08:00 Respiratory Rate 29 H 03/30/18 08:00 Blood Pressure 115/55 03/30/18 08:00 O2 Sat by Pulse Oximetry (%) 100 03/30/18 05:08 Vital Signs Period Temp Pulse Resp BP Sys/Ceballos Pulse Ox Last 24 Hr 99.2 F-100.0 F 89-102 28-35 101-120/50-97 91-100 Intake & Output 03/29/18 03/30/18 03/30/18 23:59 07:59 15:59 Intake Total 1092 1116 Output Total 360 1025 Balance 732 91 Weight 160 lb 4 oz Intake: IV 312 296 HEPARIN-1/2NS 25,000 312 296 UNITS/500 25,000 units In 500 ml @ 1,000 UNITS/HR 20 mls/hr IVPB TITR JUDY Rx#:[id number] IVPB 100 100 Tube Feeding 560 600 Tube Irrigant 120 120 Output: Drainage 60 25 Right Upper Abdomen 60 25 Urine 300 1000 Quintero 300 1000 Other: Voiding Method Indwelling Catheter Bowel Movement Yes Yes # Bowel Movements 1 1 Weight Measurement Method Built in [facility] Constitutional: Yes: Well Nourished, No Distress, Calm Eyes: Yes: Conjunctiva Clear, EOM Intact HENT: Yes: Atraumatic, Normocephalic Neck: Yes: Supple, Trachea Midline Cardiovascular: Yes: Regular Rate and Rhythm, S1, S2 Respiratory: Yes: Regular, CTA Bilaterally, On Nasal O2 Gastrointestinal: Yes: Normal Bowel Sounds, Soft, Other (RUQ IR Drain). No: Tenderness, Tenderness, Rebound Genitourinary: No: CVA Tenderness - Left, CVA Tenderness - Right Musculoskeletal: Yes: Muscle Weakness (upper and lower extremities) Extremities: No: Cool, Cyanosis Edema: Yes Edema: LUE: 1+, RUE: 1+, LLE: 1+, RLE: 1+ Peripheral Pulses WNL: Yes Peripheral Pulses: Left Radial: 2+, Right Radial: 2+, Left Doralis Pedis: 2+, Right Dorsalis Pedis: 2+ Integumentary: No: Jaundice, Rash Wound/Incision: Yes: Clean/Dry, Well Approximated, Open to air, [place] Removed. No: [place] Intact Neurological: Yes: Alert Psychiatric: Yes: Alert Labs: CBC, BMP 03/30/18 06:00 INR, PTT INR 1.39 (0.82-1.09) H 03/20/18 05:55 Microbiology 03/20/18 11:15 Peritoneal Fluid AFB Smear Concentration - Final 03/20/18 11:15 Peritoneal Fluid Mycobacterial Culture - Preliminary 03/20/18 11:15 Peritoneal Fluid Gram Stain - Final 03/20/18 11:15 Peritoneal Fluid Body Fluid Culture - Final NO GROWTH OF AEROBIC ORGANISMS AFTER 48 HOURS INCUBATION 03/20/18 11:15 Peritoneal Fluid Anaerobic Culture - Final NO ANAEROBES WERE ISOLATED 03/20/18 11:15 Peritoneal Fluid LAN Preparation - Preliminary 03/20/18 11:15 Peritoneal Fluid Fungal Culture - Preliminary 03/15/18 11:40 Blood - Central Line Blood Culture - Final NO GROWTH AFTER 5 DAYS INCUBATION 03/15/18 11:30 Blood - Central Line Blood Culture - Final NO GROWTH AFTER 5 DAYS INCUBATION 03/15/18 11:14 Blood - Peripheral Venous Blood Culture - Final NO GROWTH AFTER 5 DAYS INCUBATION 03/15/18 11:14 Blood - Peripheral Venous Blood Culture - Final NO GROWTH AFTER 5 DAYS INCUBATION 03/15/18 11:00 Sputum - Endotrachea Suction/Ventilator Gram Stain - Final 03/15/18 11:00 Sputum - Endotrachea Suction/Ventilator Sputum Culture - Final Klebsiella Oxytoca Serratia Marcescens Enterococcus Faecalis 03/16/18 16:00 Urine - Urine Quintero Urine Culture - Final NO GROWTH OBTAINED 03/12/18 14:51 Blood - Peripheral Venous Blood Culture - Final NO GROWTH AFTER 5 DAYS INCUBATION 03/12/18 14:51 Blood - Peripheral Venous Blood Culture - Final NO GROWTH AFTER 5 DAYS INCUBATION 03/13/18 02:25 Peritoneal Fluid Gram Stain - Final 03/13/18 02:25 Peritoneal Fluid Body Fluid Culture - Final NO GROWTH OF AEROBIC ORGANISMS AFTER 48 HOURS INCUBATION 03/13/18 02:25 Peritoneal Fluid Anaerobic Culture - Final NO ANAEROBES WERE ISOLATED 03/12/18 22:12 Urine For Antigen Detection Legionella Antigen - Final 03/12/18 22:12 Urine For Antigen Detection Streptococcus pneumoniae Antigen (M - Final - ....Imaging Chest X-ray: Report Reviewed, Image Reviewed Problem List - Problems (1) Strangulated inguinal hernia Assessment/Plan: 82yo male MMP relatively healthy with SBO abdominal pain non reducible LIH, unclear transition point and no clear bowel ischemia identified. Bibasilar pulmonary consolidation and hoarsness may be a sequela of an aspiration. POD#18 s/p Exploratory Laparotomy, segmental ressection of SB and primary stapled anastomosis for strangulated RIH. low grade fevers persists. Patient has soft bowel movements. Extubated on high flow NC. S/p percutaneous cholecystostomy. ICU management continue quintero for I&O NGT feeds to goal for IBW Add Prostat TID IV antibiotics per ID Cholecystostomy management per IR Physical Therapy followup GI and DVT prophylaxsis will follow peripherally This patient is critically ill. Time spent reviewing chart, examining patient, talking with providers and/or family and documentation is 35 minutes Code(s): K40.30 - UNIL INGUINAL HERNIA, W OBST, W/O GANGR, NOT SPCF RECUR (2) Incarcerated left inguinal hernia Code(s): K40.30 - UNIL INGUINAL HERNIA, W OBST, W/O GANGR, NOT SPCF RECUR (3) BPH (benign prostatic hyperplasia) Code(s): N40.0 - BENIGN PROSTATIC HYPERPLASIA WITHOUT LOWER URINRY TRACT SYMP Qualifiers: Lower urinary tract symptom presence: symptoms present Lower urinary tract symptom detail: urinary frequency Qualified Code(s): N40.1 - Benign prostatic hyperplasia with lower urinary tract symptoms; R35.0 - Frequency of micturition ; R35.0 - Frequency of micturition (4) DDD (degenerative disc disease), cervical Code(s): M50.30 - OTHER CERVICAL DISC DEGENERATION, UNSP CERVICAL REGION (5) SBO (small bowel obstruction) Code(s): K56.609 - UNSP INTESTNL OBST, UNSP TO PARTIAL VERSUS COMPLETE OBST (6) Aspiration pneumonia of both lower lobes due to gastric secretions Code(s): J69.0 - PNEUMONITIS DUE TO INHALATION OF FOOD AND VOMIT
[2018-03-30 08:59] LABS: ALBUMIN 1.1 g/dl (3.4-5.0); ANION GAP 8 (8-16); BLOOD UREA NITROGEN 29 mg/dL (7-18); CALCIUM 7.1 mg/dL (8.5-10.1); CHLORIDE 109 mmol/L (98-107); CO2 23 mmol/L (21-32); CREATININE 0.6 mg/dL (0.7-1.3); GLUCOSE,RANDOM 190 mg/dL (74-106); MAGNESIUM 2.1 mg/dL (1.8-2.4); PHOSPHOROUS 2.6 mg/dL (2.5-4.9); POTASSIUM 4.1 mmol/L (3.5-5.1); SGOT/AST 59 U/L (15-37); SGPT/ALT 70 U/L (12-78); SODIUM 140 mmol/L (136-145)
[2018-03-30 09:00] LABS: ALK PHOS 187 U/L (45-117); BILIRUBIN,TOTAL 1.6 mg/dL (0.2-1.0); TOT PROT 4.9 g/dl (6.4-8.2)
[2018-03-30] MEDS ORDERED: FUROSEMIDE 40 MG/4 ML INJECTABLE VIAL IVPUSH SCH (10:00)
--- NOTE | 2018-03-30 10:11 | CONSULT ---
Admitting History and Physical - Primary Care Physician PCP: Caio Thorne (.) - Admission History of Present Illness: Unfortunate 82 y/o gentleman with h/o DJD, GERD, diverticulosis and other medical problems who presented with abd pain and was found to have SBO with bowel ischemia , and incarcerated hernia and developed acute resp failure and septic shock -Intubated 03/13. Pt was being considered for tracheotomy today. Extubated 03/28. Pt on High flow nasal cannula with o2 sat 96 at present. Pt was fully independent, physically active premorbidly. 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 Rare y/n responses. Rarely following commands but establishes eye contact briefly, with weak responsive smile.) Attention: Moderate Impairment Ability to Follow Directions: Poor Head/Neck Control: Needs Assist - Hearing Hearing: Impaired, Both (in bag above bed. Family educated in how to change ALFONSO batteries) Speech Evaluation - Communication Primary Language: DANISH Communication: Yes: Non-Communicable (lethargic but arousable. Not mouthing words. Rare head nod/shake.No audible voice but limited attempt.) - Language/Auditory Comprehension Observation: Able to respond to yes/no queries: No (rare), Benefits from Slow Speech: Yes, Benefits from Repetiton: Yes, Benefits from Increased Volume of Speech: Yes - Swallow Evaluation/Bedside Assessment Current Nutritional Intake: NG Tube Dentition: Yes: Adequate Smile: Weak Lingual Movement: Unable to Perform Laryngeal Elevation: Impaired Laryngeal Movement: Unable to Palpate Coughing/Throat Clear: Yes (without POI trial. Unable to expectorate.) Recommendations - Speech Evaluation, Impression/Plan Impression: Prolonged intubation, extubated 6/2. lethargic but arousable.No audible voice but limited attempt. May understand but not mouthing words and rare head nod/shake. High risk of aspiration at this time. Suspect attention deficits, impaired memory and awareness. - Disposition Discharge to: To be Determined (Consider LTACH, once appropriate) - Dysphagia Impressions/Plan Dysphagia Impressions: Severe Impairment, Ongoing Evaluation, Suspect Aspiration *Silent aspiration: cannot be R/O at bedside Recommendations: Modified Barium Swallow (when appropriate), Other (Family educated on repeatedly orienting pt,encouraging y/n response, vocalization, deep breathing, cough response, swallowing saliva.) - Recommendations Diet Consistency: NPO, Other (Continue NGT for now) Liquids: NPO
[2018-03-30] MEDS: PANTOPRAZOLE SODIUM 40 MG VIAL IVPUSH SCH (10:29)
[2018-03-30] MEDS: AMINO ACIDS/PROTEIN HYDROLYS 30 ML LIQUID.PKT PO SCH (10:32)
[2018-03-30] MEDS: CHLORHEXIDINE GLUCONATE 0.12% 15ML CUP MM SCH (10:32)
[2018-03-30] MEDS: ARTIFICIAL TEARS (POLYVINYL ALCOHOL 1.4%) OPTH DROPS OU PRN (10:34)
--- NOTE | 2018-03-30 10:44 | PN ---
Progress Note, Physician Chief Complaint: septic shock History of Present Illness: extubated hi flow nasal in. not communicative, appears weak - Current Medication List Current Medications: Active Medications Acetaminophen (Tylenol Oral Solution -) 650 mg PO Q6H PRN PRN Reason: FEVER Last Admin: 03/28/18 18:26 Dose: 650 mg Amino Acids (Prosource No Carb Liquid Pkt) 30 ml PO DAILY JUDY Last Admin: 03/30/18 10:32 Dose: 30 ml Artificial Tears (Artificial Tears) 1 drop OU BID PRN PRN Reason: DRY EYES Last Admin: 03/30/18 10:34 Dose: 1 drop Chlorhexidine Gluconate (Peridex -) 15 ml MM BID JUDY Last Admin: 03/30/18 10:32 Dose: Not Given Chlorhexidine Gluconate (Hibiclens For Decolonization -) 1 applic TP HS JUDY Last Admin: 03/29/18 22:12 Dose: 1 applic Furosemide (Lasix Injection -) 40 mg IVPUSH DAILY JUDY Heparin Sodium (Porcine) (Heparin -) 1,000 unit IVPUSH PRN PRN PRN Reason: Heparin Last Admin: 03/25/18 17:00 Dose: 1,000 unit Heparin Sodium (Porcine) (Heparin -) 5,000 unit IVPUSH PRN PRN PRN Reason: Heparin Meropenem 1 gm/ Dextrose 100 mls @ 200 mls/hr IVPB Q8H-IV JUDY Last Admin: 03/30/18 10:29 Dose: 200 mls/hr HEPARIN SOD,PORK IN 0.45% NACL (Heparin-1/2ns 25,000 Units/500) 25,000 units in 500 mls @ 20 mls/hr IVPB TITR JUDY; Protocol Last Admin: 03/30/18 06:20 Dose: 1,300 units/hr, 26 mls/hr Vancomycin HCl 1,000 mg/ (Dextrose) 250 mls @ 166.667 mls/hr IVPB Q12H JUDY; Protocol Insulin Aspart (Novolog Vial Sliding Scale -) 1 vial SQ ACHS [facility]; Protocol Last Admin: 03/30/18 06:19 Dose: 4 units Morphine Sulfate (Morphine Sulfate) 3 mg IVPUSH Q2H PRN PRN Reason: PAIN LEVEL 4 - 6 Last Admin: 03/28/18 03:11 Dose: 3 mg Ondansetron HCl (Zofran Injection) 4 mg IVPUSH Q6H PRN PRN Reason: NAUSEA Pantoprazole Sodium (Protonix Iv) 40 mg IVPUSH DAILY JUDY Last Admin: 03/30/18 10:29 Dose: 40 mg - Objective Vital Signs: Vital Signs Temperature 99.2 F 03/30/18 10:00 Pulse Rate 92 H 03/30/18 10:00 Respiratory Rate 31 H 03/30/18 10:00 Blood Pressure 101/70 03/30/18 10:00 O2 Sat by Pulse Oximetry (%) 100 03/30/18 05:08 Constitutional: Yes: Well Nourished, No Distress, Calm Cardiovascular: Yes: Regular Rate and Rhythm, S1, S2. No: Gallop, Murmur Respiratory: Yes: Regular, CTA Bilaterally (anteriorly). No: Accessory Muscle Use, Wheezes Extremities: No: Cold Edema: No Neurological: Yes: Alert. No: Seizure Psychiatric: No: Agitated Labs: CBC, BMP 03/30/18 06:00 03/30/18 07:55 INR, PTT INR 1.39 (0.82-1.09) H 03/20/18 05:55 Assessment/Plan ecg: sr, nl intervals, no ischemic changes head ct: no acute pathology echo 02/2018: nl lv/rv, mild mr/tr/ar cxr: chf, slightly improved cxr 03/25: no sig change tele: NSR a/p: 82 m hx gerd, bph, here with abd pain/sepsis - found to have sbo, now s/p OR hospital course c/b new afib. septic shock: -now extubated, off pressors. bp stable. cont abx per ID -receiving IV lasix prn per CXR appearing congested -same plan new pafib --> conversion to sr: -new onset here -rate controlled w/o meds. 03/25 converted to sr-->remains in sinus -echo unremarkable -chadsvasc warrants ac. continue UFH gtt while observe for recovery--? NOAC once stable -cont tele sbo: -s/p surgery 03/13 -also with gall stones and s/p IR drain 03/20
--- NOTE | 2018-03-30 12:33 | PN ---
Teaching Attending Note Name of Resident: Mukul White ATTENDING PHYSICIAN STATEMENT I saw and evaluated the patient. I reviewed the resident's note and discussed the case with the resident. I agree with the resident's findings and plan as documented. SUBJECTIVE: limited hx. no events over night . minimal response to questions OBJECTIVE: Awake , follows some commands .wiggle toes, can't squeeze. tracks. CV: RRR. Lungs; clear anteriorly Abd: + BS. mid line surgical wound with panda. RUQ LEIF drain with brown fluid Ext: 1+ edema on LE ASSESSMENT AND PLAN: Unfortunate 82 y/o gentleman with h/o DJD, GERD, diverticulosis and other medical problems who presented with abd pain and was found to have SBO with bowel ischemia , and incarcerated hernia and developed acute resp failure and septic shock. 1- Acute hypoxic resp failure. due to severe sepsis and b/l PNA /ARDS. - s/p lasix 2- Septic shock. resolved - cont Abx meropenem , and vanco - follow ID Recs for possible deescalation 3- Ischemic bowel and incarcerated inguinal hernia : s/p exploratory laparotomy and partial small bowel resection. staple removal per Sx 4- Possible acalculus cholecystitis : s/p cholecystostomy tube -d/w Dr. Nance. to determine plan for tube 5-New onset A flutter/A fib : now in sinus rhythm. - Cont heparin gtt. will switch to po AC once no further surgical intervention is indicated or planned - rate controlled 6- R IJ thrombus /DVT: - cont heparin gtt 7- S/P extubation. non verbal yet. possible vocal cord paralysis or granulation tissue. risk for aspiration - if no improvement , might need ENT eval - speech and swallow eval. MBS 8- ICU neuropathy. PT and monitor PX: PPI and on heparin gtt TF Critical Care Total Critical Care Time (in minutes): 35 Critical Care Statement: The care of this patient involved high complexity decision making to prevent further life threatening deterioration of the patient 's condition and/or to evaluate & treat vital organ system(s) failure or risk of failure.
--- NOTE | 2018-03-30 12:38 | PN ---
Teaching Attending Note Name of Resident: Patricia Drake ATTENDING PHYSICIAN STATEMENT I saw and evaluated the patient. I reviewed the resident's note and discussed the case with the resident. I agree with the resident's findings and plan as documented. SUBJECTIVE: Patient seen and examined in the ICU. Remains extubated, on HFNCO2. Lethargic but arousable and able to interact. Falls asleep very easily. No pressors. Intake & Output 03/27/18 03/28/18 03/29/18 03/30/18 23:59 23:59 23:59 23:59 Intake Total 2574 2384 2584 1116 Output Total 2112 4360 2775 1025 Balance 462 -1976 -191 91 Weight 173 lb 169 lb 12.8 oz 164 lb 9.6 oz 160 lb 4 oz Last Vital Signs Temp Pulse Resp BP Pulse Ox 99.2 F 92 H 31 H 101/70 98 03/30/18 10:00 03/30/18 10:00 03/30/18 10:00 03/30/18 10:00 03/30/18 12:20 Active Medications Acetaminophen (Tylenol Oral Solution -) 650 mg PO Q6H PRN PRN Reason: FEVER Last Admin: 03/28/18 18:26 Dose: 650 mg Amino Acids (Prosource No Carb Liquid Pkt) 30 ml PO DAILY JUDY Last Admin: 03/30/18 10:32 Dose: 30 ml Artificial Tears (Artificial Tears) 1 drop OU BID PRN PRN Reason: DRY EYES Last Admin: 03/30/18 10:34 Dose: 1 drop Chlorhexidine Gluconate (Peridex -) 15 ml MM BID JUDY Last Admin: 03/30/18 10:32 Dose: Not Given Chlorhexidine Gluconate (Hibiclens For Decolonization -) 1 applic TP HS JUDY Last Admin: 03/29/18 22:12 Dose: 1 applic Heparin Sodium (Porcine) (Heparin -) 1,000 unit IVPUSH PRN PRN PRN Reason: Heparin Last Admin: 03/25/18 17:00 Dose: 1,000 unit Heparin Sodium (Porcine) (Heparin -) 5,000 unit IVPUSH PRN PRN PRN Reason: Heparin Meropenem 1 gm/ Dextrose 100 mls @ 200 mls/hr IVPB Q8H-IV JUDY Last Admin: 03/30/18 10:29 Dose: 200 mls/hr HEPARIN SOD,PORK IN 0.45% NACL (Heparin-1/2ns 25,000 Units/500) 25,000 units in 500 mls @ 20 mls/hr IVPB TITR JUDY; Protocol Last Admin: 03/30/18 06:20 Dose: 1,300 units/hr, 26 mls/hr Vancomycin HCl 1,000 mg/ (Dextrose) 250 mls @ 166.667 mls/hr IVPB Q12H JUDY; Protocol Insulin Aspart (Novolog Vial Sliding Scale -) 1 vial SQ ACHS JUDY; Protocol Last Admin: 03/30/18 06:19 Dose: 4 units Ondansetron HCl (Zofran Injection) 4 mg IVPUSH Q6H PRN PRN Reason: NAUSEA Pantoprazole Sodium (Protonix Iv) 40 mg IVPUSH DAILY [facility] Last Admin: 03/30/18 10:29 Dose: 40 mg Gen: Extubated, sleepy Heart: RRR Lung: scattered rhonchi Abd: soft, nontender, (+) BS Ext: Less edema Laboratory Results - last 24 hr 03/27/18 03/28/18 03/29/18 22:07 05:34 16:18 WBC RBC Hgb Hct MCV MCH MCHC RDW Plt Count MPV Neutrophils % Lymphocytes % Monocytes % Eosinophils % Basophils % Nucleated RBC % PTT (Actin FS) Sodium Potassium Chloride Carbon Dioxide Anion Gap BUN Creatinine Creat Clearance w eGFR POC Glucometer [phone] [phone] Random Glucose Calcium Phosphorus Magnesium Total Bilirubin AST ALT Alkaline Phosphatase Total Protein Albumin 03/29/18 03/30/18 03/30/18 22:36 05:35 06:00 WBC 11.8 H RBC 3.69 L Hgb 11.0 L Hct 33.3 L MCV 90.3 MCH 29.9 MCHC 33.1 RDW 14.3 Plt Count 495 H MPV 10.9 Neutrophils % 70.7 Lymphocytes % 19.6 D Monocytes % 6.8 Eosinophils % 1.8 D Basophils % 1.1 Nucleated RBC % 0 PTT (Actin FS) Sodium Potassium Chloride Carbon Dioxide Anion Gap BUN Creatinine Creat Clearance w eGFR POC Glucometer 173.11944 [phone] Random Glucose Calcium Phosphorus Magnesium Total Bilirubin AST ALT Alkaline Phosphatase Total Protein Albumin 03/30/18 03/30/18 03/30/18 06:00 07:55 07:55 WBC RBC Hgb Hct MCV MCH MCHC RDW Plt Count MPV Neutrophils % Lymphocytes % Monocytes % Eosinophils % Basophils % Nucleated RBC % PTT (Actin FS) 75.7 H D Sodium Cancelled 140 Potassium Cancelled 4.1 Chloride Cancelled 109 H Carbon Dioxide Cancelled 23 Anion Gap Cancelled 8 BUN Cancelled 29 H Creatinine Cancelled 0.6 L Creat Clearance w eGFR Cancelled > 60 POC Glucometer Random Glucose Cancelled 190 H Calcium Cancelled 7.1 L Phosphorus Cancelled 2.6 D Magnesium Cancelled 2.1 Total Bilirubin Cancelled 1.6 H D AST Cancelled 59 H ALT Cancelled 70 Alkaline Phosphatase Cancelled 187 H D Total Protein Cancelled 4.9 L Albumin Cancelled 1.1 L 03/30/18 12:15 WBC RBC Hgb Hct MCV MCH MCHC RDW Plt Count MPV Neutrophils % Lymphocytes % Monocytes % Eosinophils % Basophils % Nucleated RBC % PTT (Actin FS) Sodium Potassium Chloride Carbon Dioxide Anion Gap BUN Creatinine Creat Clearance w eGFR POC Glucometer [phone] Random Glucose Calcium Phosphorus Magnesium Total Bilirubin AST ALT Alkaline Phosphatase Total Protein Albumin ASSESSMENT AND PLAN: CIP Acute Hypoxic Respiratory Failure Aspiration Pneumonia ARDS resolving Incarcerated Inguinal Hernia s/p ex-lap/segmental terminal ileum resection/primary anastamosis 03/13 Suspected Acalculus Cholecystitis s/p percutaneous cholecystostomy Septic Shock resolving Acute Kidney Injury improving Lactic Acidosis resolved New onset Paroxysmal Atrial Fibrillation Diverticulosis BPH - Maintain on HFNC O2 - antibiotics per ID - rate controlled - continue anticoagulation - Daily assessment for need for lasix - monitor urine output, creatinine - Follow mental status and Neuro exam - enteral feeds - DVT/GI prophylaxis - Low threshold for re-intubation - continue ICU monitoring Dr Moreno Critical care time spent in reviewing chart, evaluating patient and formulating plan 35 min
--- NOTE | 2018-03-30 14:08 | PN ---
Progress Note, Physician History of Present Illness: patient looking better extubated more awake and alert family in room according tot family patient recognizes them - Current Medication List Current Medications: Active Medications Acetaminophen (Tylenol Oral Solution -) 650 mg PO Q6H PRN PRN Reason: FEVER Last Admin: 03/28/18 18:26 Dose: 650 mg Amino Acids (Prosource No Carb Liquid Pkt) 30 ml PO DAILY JUDY Last Admin: 03/30/18 10:32 Dose: 30 ml Artificial Tears (Artificial Tears) 1 drop OU BID PRN PRN Reason: DRY EYES Last Admin: 03/30/18 10:34 Dose: 1 drop Chlorhexidine Gluconate (Peridex -) 15 ml MM BID JUDY Last Admin: 03/30/18 10:32 Dose: Not Given Chlorhexidine Gluconate (Hibiclens For Decolonization -) 1 applic TP HS JUDY Last Admin: 03/29/18 22:12 Dose: 1 applic Heparin Sodium (Porcine) (Heparin -) 1,000 unit IVPUSH PRN PRN PRN Reason: Heparin Last Admin: 03/25/18 17:00 Dose: 1,000 unit Heparin Sodium (Porcine) (Heparin -) 5,000 unit IVPUSH PRN PRN PRN Reason: Heparin Meropenem 1 gm/ Dextrose 100 mls @ 200 mls/hr IVPB Q8H-IV JUDY Last Admin: 03/30/18 10:29 Dose: 200 mls/hr HEPARIN SOD,PORK IN 0.45% NACL (Heparin-1/2ns 25,000 Units/500) 25,000 units in 500 mls @ 20 mls/hr IVPB TITR JUDY; Protocol Last Admin: 03/30/18 06:20 Dose: 1,300 units/hr, 26 mls/hr Vancomycin HCl 1,000 mg/ (Dextrose) 250 mls @ 166.667 mls/hr IVPB Q12H JUDY; Protocol Insulin Aspart (Novolog Vial Sliding Scale -) 1 vial SQ ACHS [facility]; Protocol Last Admin: 03/30/18 12:46 Dose: 6 units Ondansetron HCl (Zofran Injection) 4 mg IVPUSH Q6H PRN PRN Reason: NAUSEA Pantoprazole Sodium (Protonix Iv) 40 mg IVPUSH DAILY [facility] Last Admin: 03/30/18 10:29 Dose: 40 mg - Objective Vital Signs: Vital Signs Temperature 99.4 F 03/30/18 12:00 Pulse Rate 95 H 03/30/18 12:00 Respiratory Rate 29 H 03/30/18 12:00 Blood Pressure 107/53 03/30/18 12:00 O2 Sat by Pulse Oximetry (%) 98 03/30/18 12:20 Constitutional: Yes: No Distress, Calm Cardiovascular: Yes: Regular Rate and Rhythm Respiratory: Yes: Poor Air Entry, Rhonchi, Other (on hig flow nasal canula) Gastrointestinal: Yes: Normal Bowel Sounds, Soft Musculoskeletal: Yes: WNL Extremities: Yes: WNL Edema: LLE: 1+, RLE: 1+ Wound/Incision: Yes: Clean/Dry Neurological: Yes: Alert Psychiatric: Yes: Alert Labs: CBC, BMP 03/30/18 06:00 03/30/18 07:55 INR, PTT INR 1.39 (0.82-1.09) H 03/20/18 05:55 Assessment/Plan Problem List - Problems (1) Strangulated inguinal hernia Pulmonary evaluation - weaning today? GI Evaluation - Tbili 3.5, 3.6 BP goal MAP 65-70, has a stapled small bowel anastomosis avoid lwo flow states will follow Code(s): K40.30 - UNIL INGUINAL HERNIA, W OBST, W/O GANGR, NOT SPCF RECUR (2) Incarcerated left inguinal hernia Code(s): K40.30 - UNIL INGUINAL HERNIA, W OBST, W/O GANGR, NOT SPCF RECUR (3) BPH (benign prostatic hyperplasia) Code(s): N40.0 - BENIGN PROSTATIC HYPERPLASIA WITHOUT LOWER URINRY TRACT SYMP Qualifiers: Lower urinary tract symptom presence: symptoms present Lower urinary tract symptom detail: urinary frequency Qualified Code(s): N40.1 - Benign prostatic hyperplasia with lower urinary tract symptoms; R35.0 - Frequency of micturition ; R35.0 - Frequency of micturition (4) DDD (degenerative disc disease), cervical Code(s): M50.30 - OTHER CERVICAL DISC DEGENERATION, UNSP CERVICAL REGION (5) SBO (small bowel obstruction) Code(s): K56.609 - UNSP INTESTNL OBST, UNSP TO PARTIAL VERSUS COMPLETE OBST (6) Aspiration pneumonia of both lower lobes due to gastric secretions Code(s): J69.0 - PNEUMONITIS DUE TO INHALATION OF FOOD AND VOMIT r/o acalculus choley plan continue abx monitor vent setting rest as per icu aggressive chest pt continue suctioning improving monitor wbc monitor for fever xray labs noted cc 40 min
--- NOTE | 2018-03-30 18:50 | PN ---
Physical Exam: SUBJECTIVE: No acute events overnight. Was given IVP Lasix 40mg yesterday with good diuresis effect. Pt is more alert and mouthing words, however still can't make audible sound. Pt making efforts to move his L hand when asked to and can move toes only at this point. OBJECTIVE: Vital Signs Period Temp Pulse Resp BP Sys/Ceballos Pulse Ox Last 24 Hr 99.2 F-99.9 F 89-98 28-33 101-120/46-70 96-100 GENERAL: NAD, alert to spontaneous stimuli, attempts to listen to commands but limited due to weakness HEENT: KITTY, EOMI, NG in place, dry MM Neck: L IJ line site C/D/I, minimal JVD LUNGS: Scattered rhonchi throughout lung duncan, bibasilar rales noted. On high flow O2 50L/min HEART: RRR, S1, S2 without murmur ABDOMEN: Soft, nondistended, nontender, Midline incision C/D/I, C-tube draining brown fluid EXTREMITIES: 2+ DP pulses, warm, 1+ ankle edema SKIN: Warm, dry, no rash or lesions currently Laboratory Results - last 24 hr 03/27/18 03/28/18 03/29/18 22:07 05:34 22:36 WBC RBC Hgb Hct MCV MCH MCHC RDW Plt Count MPV Neutrophils % Lymphocytes % Monocytes % Eosinophils % Basophils % Nucleated RBC % PTT (Actin FS) Sodium Potassium Chloride Carbon Dioxide Anion Gap BUN Creatinine Creat Clearance w eGFR POC Glucometer [phone] [phone] Random Glucose Calcium Phosphorus Magnesium Total Bilirubin AST ALT Alkaline Phosphatase Total Protein Albumin 03/30/18 03/30/18 03/30/18 05:35 06:00 06:00 WBC 11.8 H RBC 3.69 L Hgb 11.0 L Hct 33.3 L MCV 90.3 MCH 29.9 MCHC 33.1 RDW 14.3 Plt Count 495 H MPV 10.9 Neutrophils % 70.7 Lymphocytes % 19.6 D Monocytes % 6.8 Eosinophils % 1.8 D Basophils % 1.1 Nucleated RBC % 0 PTT (Actin FS) Sodium Cancelled Potassium Cancelled Chloride Cancelled Carbon Dioxide Cancelled Anion Gap Cancelled BUN Cancelled Creatinine Cancelled Creat Clearance w eGFR Cancelled POC Glucometer [phone] Random Glucose Cancelled Calcium Cancelled Phosphorus Cancelled Magnesium Cancelled Total Bilirubin Cancelled AST Cancelled ALT Cancelled Alkaline Phosphatase Cancelled Total Protein Cancelled Albumin Cancelled 03/30/18 03/30/18 03/30/18 07:55 07:55 12:15 WBC RBC Hgb Hct MCV MCH MCHC RDW Plt Count MPV Neutrophils % Lymphocytes % Monocytes % Eosinophils % Basophils % Nucleated RBC % PTT (Actin FS) 75.7 H D Sodium 140 Potassium 4.1 Chloride 109 H Carbon Dioxide 23 Anion Gap 8 BUN 29 H Creatinine 0.6 L Creat Clearance w eGFR > 60 POC Glucometer [phone] Random Glucose 190 H Calcium 7.1 L Phosphorus 2.6 D Magnesium 2.1 Total Bilirubin 1.6 H D AST 59 H ALT 70 Alkaline Phosphatase 187 H D Total Protein 4.9 L Albumin 1.1 L 03/30/18 16:57 WBC RBC Hgb Hct MCV MCH MCHC RDW Plt Count MPV Neutrophils % Lymphocytes % Monocytes % Eosinophils % Basophils % Nucleated RBC % PTT (Actin FS) Sodium Potassium Chloride Carbon Dioxide Anion Gap BUN Creatinine Creat Clearance w eGFR POC Glucometer [phone] Random Glucose Calcium Phosphorus Magnesium Total Bilirubin AST ALT Alkaline Phosphatase Total Protein Albumin Active Medications Generic Name Dose Route Start Last Admin Trade Name Freq PRN Reason Stop Dose Admin Acetaminophen 650 mg 03/27/18 13:00 03/28/18 18:26 Tylenol Oral Solution - PO 650 mg Q6H PRN Administration FEVER Amino Acids 30 ml 03/24/18 13:00 03/30/18 10:32 Prosource No Carb Liquid Pkt PO 30 ml DAILY JUDY Administration Artificial Tears 1 drop 03/24/18 10:59 03/30/18 10:34 Artificial Tears OU 1 drop BID PRN Administration DRY EYES Chlorhexidine Gluconate 15 ml 03/13/18 10:00 03/30/18 10:32 Peridex - MM Not Given BID JUDY Chlorhexidine Gluconate 1 applic 03/13/18 22:00 03/29/18 22:12 Hibiclens For Decolonization - TP 1 applic HS JUDY Administration Heparin Sodium (Porcine) 1,000 unit 03/20/18 14:07 03/25/18 17:00 Heparin - IVPUSH 1,000 unit PRN PRN Administration Heparin Heparin Sodium (Porcine) 5,000 unit 03/20/18 14:07 Heparin - IVPUSH PRN PRN Heparin Meropenem 1 gm/ Dextrose 100 mls @ 200 mls/hr 03/19/18 18:00 03/30/18 18:05 IVPB 200 mls/hr Q8H-IV JUDY Administration HEPARIN SOD,PORK IN 0.45% NACL 25,000 units in 500 mls @ 20 mls/hr 03/20/18 14 :15 03/30/18 06:20 Heparin-1/2ns 25,000 Units/500 IVPB 1,300 units/hr TITR JUDY 26 mls/hr Administration Protocol 1,000 UNITS/HR Vancomycin HCl 1,000 mg/ 250 mls @ 166.667 mls/hr 03/29/18 04:00 Dextrose IVPB Q12H JUDY Protocol Insulin Aspart 1 vial 03/23/18 11:00 03/30/18 12:46 Novolog Vial Sliding Scale - SQ 6 units ACHS JUDY Administration Protocol Ondansetron HCl 4 mg 03/13/18 04:30 Zofran Injection IVPUSH Q6H PRN NAUSEA Pantoprazole Sodium 40 mg 03/13/18 10:00 03/30/18 10:29 Protonix Iv IVPUSH 40 mg DAILY JUDY Administration ASSESSMENT/PLAN: 1) Acute hypoxic respiratory failure --Resolving, extubated; 6/2 --Continue High flow O2 and maintain maintain SpO2 >90% ==Lasix 40mg IVP once today to continue further diagnosis 2) Septic shock 2/2 to bowel ischemia in addition to aspiration PNA --ID on board --Meropenem to continue --Vancomycin 1.25gm qDaily --WBC continue to normalize --May be possible to descalate antibiotics due to lack of fevers 3) Elevated LFTs --Continues downtrend --Discussed with Dr. Fox and will need to keep C-tube for long duration before pulling 4) Atrial flutter/fib --Cardiology consulted --Heparin gtt remains; monitor aPtt --Echo unremarkable FEN: Fluids: Avoid Electrolyte abnormalities: pseudohypocalcemia Nutrition: NGT feeds ongoing; rate 50 with prosource on board; increase from 1.5 protein to 2.0 PPX: DVT - Heparin gtt on already GI - Protonix 40mg IVP daily Dispo: Continue ICU monitoring Case discussed with Dr. Mati White, DO - IM PGY-1 Visit type - Emergency Visit Emergency Visit: No - New Patient This patient is new to me today: No - Critical Care Critical Care patient: Yes Total Critical Care Time (in minutes): 35 Critical Care Statement: The care of this patient involved high complexity decision making to prevent further life threatening deterioration of the patient 's condition and/or to evaluate & treat vital organ system(s) failure or risk of failure.
[2018-03-30] MEDS: CHLORHEXIDINE GLUCONATE 4% CLEANSER FOR DECOLONIZATION TP SCH (22:00)
[2018-03-31] MEDS: CHLORHEXIDINE GLUCONATE 0.12% 15ML CUP MM SCH ×2 (01:43→10:22)
[2018-03-31] MEDS ORDERED: PT OWN MED DRAWER 7, Y5N ONE ×2 (01:46→10:02)
[2018-03-31] MEDS: MEROPENEM 1 GM in DEXTROSE 5%-WATER 100 ML IVPB SCH ×3 (01:48→18:22)
[2018-03-31] MEDS: HEPARIN SOD,PORK IN 0.45% NACL 25,000 UNITS/500 ML INFUS.BAG IVPB SCH ×4 (02:07→20:11)
[2018-03-31] MEDS: INSULIN SLIDING SCALE (NOVOLOG) 1 VIAL SQ SCH ×4 (06:10→23:16)
[2018-03-31 06:43] LABS: BASO % 1.5 % (0-2.0); EOS % 1.9 % (0-4.5); HEMATOCRIT 30.5 % (35.4-49); HEMOGLOBIN 10.2 GM/dL (11.7-16.9); LYMPH % 18.4 % (8-40); MCH 30.3 pg (25.7-33.7); MCHC 33.6 g/dl (32.0-35.9); MEAN CELL VOLUME 90.1 fl (80-96); MEAN PLT VOLUME 10.3 fl (7.5-11.1); MONO % 9.9 % (3.8-10.2); NEUT % 68.3 % (42.8-82.8); PLATELET COUNT 533 K/MM3 (134-434); RBC 3.38 M/mm3 (4.00-5.60); RDW 14.8 % (11.9-15.9); WHITE BLOOD COUNT 12.6 K/mm3 (4.0-10.0)
[2018-03-31 06:57] LABS: INR 1.22 (0.82-1.09); PROTHROMBIN TIME (PATIENT) 13.8 SEC (9.7-13.0)
[2018-03-31 06:59] LABS: ACTIVATED PTT 27.4 SECONDS (26.9-34.4)
[2018-03-31 07:07] LABS: ALBUMIN 1.2 g/dl (3.4-5.0); CALCIUM 7.3 mg/dL (8.5-10.1); CHLORIDE 111 mmol/L (98-107); POTASSIUM 4.7 mmol/L (3.5-5.1); SODIUM 138 mmol/L (136-145)
[2018-03-31 07:13] LABS: ALK PHOS 202 U/L (45-117); ANION GAP 5 (8-16); BILIRUBIN,TOTAL 1.4 mg/dL (0.2-1.0); BLOOD UREA NITROGEN 25 mg/dL (7-18); CO2 22 mmol/L (21-32); CREATININE 0.4 mg/dL (0.7-1.3); GLUCOSE,RANDOM 137 mg/dL (74-106); MAGNESIUM 2.2 mg/dL (1.8-2.4); PHOSPHOROUS 2.3 mg/dL (2.5-4.9); SGOT/AST 49 U/L (15-37); SGPT/ALT 66 U/L (12-78); TOT PROT 5.1 g/dl (6.4-8.2)
[2018-03-31] MEDS: HEPARIN NA (PORCINE) 5,000 UNITS/ML 1ML VIAL IVPUSH PRN (07:56)
--- NOTE | 2018-03-31 09:36 | PN ---
Progress Note, Physician Chief Complaint: SBO History of Present Illness: 82 yo male PMH BPH, degernerative disc disease (cervical), diverticulosis, hemorrhoids presented to the ED with abdominal pain and vomiting for on day. He reports that he was weight training yesterday and developed some groin pain. 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 gradually more responsive, intermittent clinical improvement. - Current Medication List Current Medications: Active Medications Acetaminophen (Tylenol Oral Solution -) 650 mg PO Q6H PRN PRN Reason: FEVER Last Admin: 03/28/18 18:26 Dose: 650 mg Amino Acids (Prosource No Carb Liquid Pkt) 30 ml PO DAILY JUDY Last Admin: 03/30/18 10:32 Dose: 30 ml Artificial Tears (Artificial Tears) 1 drop OU BID PRN PRN Reason: DRY EYES Last Admin: 03/30/18 10:34 Dose: 1 drop Chlorhexidine Gluconate (Peridex -) 15 ml MM BID JUDY Last Admin: 03/31/18 01:43 Dose: Not Given Chlorhexidine Gluconate (Hibiclens For Decolonization -) 1 applic TP HS JUDY Last Admin: 03/30/18 22:00 Dose: 1 applic Heparin Sodium (Porcine) (Heparin -) 1,000 unit IVPUSH PRN PRN PRN Reason: Heparin Last Admin: 03/25/18 17:00 Dose: 1,000 unit Heparin Sodium (Porcine) (Heparin -) 5,000 unit IVPUSH PRN PRN PRN Reason: Heparin Last Admin: 03/31/18 07:56 Dose: 5,000 unit Meropenem 1 gm/ Dextrose 100 mls @ 200 mls/hr IVPB Q8H-IV JUDY Last Admin: 03/31/18 01:48 Dose: 200 mls/hr HEPARIN SOD,PORK IN 0.45% NACL (Heparin-1/2ns 25,000 Units/500) 25,000 units in 500 mls @ 20 mls/hr IVPB TITR JUDY; Protocol Last Admin: 03/31/18 07:57 Dose: 1,450 units/hr, 29 mls/hr Vancomycin HCl 1,000 mg/ (Dextrose) 250 mls @ 166.667 mls/hr IVPB Q12H JUDY; Protocol Sodium Phosphate 30 mm/ (Dextrose) 260 mls @ 62.5 mls/hr IVPB ONCE ONE Stop: 03/31/18 11:33 Insulin Aspart (Novolog Vial Sliding Scale -) 1 vial SQ [facility]; Protocol Last Admin: 03/31/18 06:10 Dose: 2 units Ondansetron HCl (Zofran Injection) 4 mg IVPUSH Q6H PRN PRN Reason: NAUSEA Pantoprazole Sodium (Protonix Iv) 40 mg IVPUSH DAILY [facility] Last Admin: 03/30/18 10:29 Dose: 40 mg - Objective Vital Signs: Vital Signs Temperature 100 F H 03/31/18 06:00 Pulse Rate 94 H 03/31/18 08:01 Respiratory Rate 24 03/31/18 06:00 Blood Pressure 106/56 03/31/18 06:00 O2 Sat by Pulse Oximetry (%) 96 03/31/18 08:02 Vital Signs Period Temp Pulse Resp BP Sys/Ceballos Pulse Ox Last 24 Hr 99 F-100 F 92-99 24-33 101-125/46-70 96-99 Intake & Output 03/30/18 03/31/18 03/31/18 23:59 07:59 15:59 Intake Total 1132 1132 Output Total 665 825 Balance 467 307 Weight 162 lb 1 oz Intake: IV 312 312 HEPARIN-1/2NS 25,000 312 312 UNITS/500 25,000 units In 500 ml @ 1,000 UNITS/HR 20 mls/hr IVPB TITR [facility] Rx#:[id number] IVPB 100 100 Tube Feeding 600 600 Tube Irrigant 120 120 Output: Drainage 65 25 Right Upper Abdomen 65 25 Urine 600 800 Quintero 600 800 Other: Voiding Method Indwelling Catheter Bowel Movement Yes No # Bowel Movements 1 Weight Measurement Method Built in [facility] Constitutional: Yes: Well Nourished, No Distress, Calm Eyes: Yes: Conjunctiva Clear, EOM Intact HENT: Yes: Atraumatic, Normocephalic Cardiovascular: Yes: Regular Rate and Rhythm, S1, S2 Respiratory: Yes: Regular, CTA Bilaterally, On Nasal O2 Gastrointestinal: Yes: Normal Bowel Sounds, Soft. No: Distention, Tenderness ...Rectal Exam: No: Deferred Genitourinary: No: CVA Tenderness - Left, CVA Tenderness - Right Extremities: No: Cool, Cyanosis Edema: Yes Edema: LUE: 1+, RUE: 1+, LLE: 1+, RLE: 1+ Peripheral Pulses WNL: Yes Peripheral Pulses: Left Radial: 2+, Right Radial: 2+, Left Doralis Pedis: 2+, Right Dorsalis Pedis: 2+ Integumentary: No: Jaundice, Rash Wound/Incision: Yes: Clean/Dry, Well Approximated, Open to air Neurological: Yes: Alert, Oriented Psychiatric: Yes: Alert Labs: CBC, BMP 03/31/18 05:20 03/31/18 05:20 INR, PTT INR 1.22 (0.82-1.09) H 03/31/18 05:20 Problem List - Problems (1) Strangulated inguinal hernia Assessment/Plan: 82yo male MMP relatively healthy with SBO abdominal pain non reducible LIH, unclear transition point and no clear bowel ischemia identified. Bibasilar pulmonary consolidation and hoarsness may be a sequela of an aspiration. POD#18 s/p Exploratory Laparotomy, segmental ressection of SB and primary stapled anastomosis for strangulated RIH. low grade fevers persists. Patient has soft bowel movements. Extubated on high flow NC. S/p percutaneous cholecystostomy. ICU management continue quintero for I&O NGT feeds to goal for IBW Add Prostat TID IV antibiotics per ID Cholecystostomy management per IR Physical Therapy followup Surgical gastrostomy being discussed GI and DVT prophylaxsis D/C planning to [facility] in [place] will follow peripherally This patient is critically ill. Time spent reviewing chart, examining patient, talking with providers and/or family and documentation is 35 minutes Code(s): K40.30 - UNIL INGUINAL HERNIA, W OBST, W/O GANGR, NOT SPCF RECUR (2) Incarcerated left inguinal hernia Code(s): K40.30 - UNIL INGUINAL HERNIA, W OBST, W/O GANGR, NOT SPCF RECUR (3) BPH (benign prostatic hyperplasia) Code(s): N40.0 - BENIGN PROSTATIC HYPERPLASIA WITHOUT LOWER URINRY TRACT SYMP Qualifiers: Lower urinary tract symptom presence: symptoms present Lower urinary tract symptom detail: urinary frequency Qualified Code(s): N40.1 - Benign prostatic hyperplasia with lower urinary tract symptoms; R35.0 - Frequency of micturition ; R35.0 - Frequency of micturition (4) DDD (degenerative disc disease), cervical Code(s): M50.30 - OTHER CERVICAL DISC DEGENERATION, UNSP CERVICAL REGION (5) SBO (small bowel obstruction) Code(s): K56.609 - UNSP INTESTNL OBST, UNSP TO PARTIAL VERSUS COMPLETE OBST (6) Aspiration pneumonia of both lower lobes due to gastric secretions Code(s): J69.0 - PNEUMONITIS DUE TO INHALATION OF FOOD AND VOMIT
[2018-03-31] MEDS: AMINO ACIDS/PROTEIN HYDROLYS 30 ML LIQUID.PKT PO SCH (10:08)
[2018-03-31] MEDS: PANTOPRAZOLE SODIUM 40 MG VIAL IVPUSH SCH (10:09)
[2018-03-31] MEDS ORDERED: SODIUM PHOSPHATE - 30 MM in DEXTROSE 5%-WATER - 250 ML IVPB ONE (10:15)
--- NOTE | 2018-03-31 10:45 | PN ---
Teaching Attending Note Name of Resident: Luke Drake ATTENDING PHYSICIAN STATEMENT I saw and evaluated the patient. I reviewed the resident's note and discussed the case with the resident. I agree with the resident's findings and plan as documented. SUBJECTIVE: Patient seen and examined in the ICU. Remains extubated, on HFNC O2. More awake today, but still not able to phonate. No pressors. Intake & Output 03/28/18 03/29/18 03/30/18 03/31/18 23:59 23:59 23:59 23:59 Intake Total 2384 2584 2348 1132 Output Total 4360 2775 2420 825 Balance -1975 -191 -72 307 Weight 169 lb 12.8 oz 164 lb 9.6 oz 160 lb 4 oz 162 lb 1 oz Last Vital Signs Temp Pulse Resp BP Pulse Ox 100 F H 94 H 24 106/56 96 03/31/18 06:00 03/31/18 08:01 03/31/18 06:00 03/31/18 06:00 03/31/18 08:02 Active Medications Acetaminophen (Tylenol Oral Solution -) 650 mg PO Q6H PRN PRN Reason: FEVER Last Admin: 03/28/18 18:26 Dose: 650 mg Amino Acids (Prosource No Carb Liquid Pkt) 30 ml PO DAILY JUDY Last Admin: 03/31/18 10:08 Dose: 30 ml Artificial Tears (Artificial Tears) 1 drop OU BID PRN PRN Reason: DRY EYES Last Admin: 03/30/18 10:34 Dose: 1 drop Chlorhexidine Gluconate (Peridex -) 15 ml MM BID JUDY Last Admin: 03/31/18 10:22 Dose: Not Given Chlorhexidine Gluconate (Hibiclens For Decolonization -) 1 applic TP HS JUDY Last Admin: 03/30/18 22:00 Dose: 1 applic Heparin Sodium (Porcine) (Heparin -) 1,000 unit IVPUSH PRN PRN PRN Reason: Heparin Last Admin: 03/25/18 17:00 Dose: 1,000 unit Heparin Sodium (Porcine) (Heparin -) 5,000 unit IVPUSH PRN PRN PRN Reason: Heparin Last Admin: 03/31/18 07:56 Dose: 5,000 unit Meropenem 1 gm/ Dextrose 100 mls @ 200 mls/hr IVPB Q8H-IV JUDY Last Admin: 03/31/18 10:09 Dose: 200 mls/hr HEPARIN SOD,PORK IN 0.45% NACL (Heparin-1/2ns 25,000 Units/500) 25,000 units in 500 mls @ 20 mls/hr IVPB TITR JUDY; Protocol Last Admin: 03/31/18 07:57 Dose: 1,450 units/hr, 29 mls/hr Vancomycin HCl 1,000 mg/ (Dextrose) 250 mls @ 166.667 mls/hr IVPB Q12H JUDY; Protocol Sodium Phosphate 30 mm/ (Dextrose) 260 mls @ 62.5 mls/hr IVPB ONCE ONE Stop: 03/31/18 14:24 Insulin Aspart (Novolog Vial Sliding Scale -) 1 vial SQ ACHS [facility]; Protocol Last Admin: 03/31/18 06:10 Dose: 2 units Ondansetron HCl (Zofran Injection) 4 mg IVPUSH Q6H PRN PRN Reason: NAUSEA Pantoprazole Sodium (Protonix Iv) 40 mg IVPUSH DAILY [facility] Last Admin: 03/31/18 10:09 Dose: 40 mg Gen: Awake and interactive in HFNC O2 Heart: RRR Lung: scattered rhonchi Abd: soft, nontender, (+) BS Ext: Less edema Laboratory Results - last 24 hr 03/30/18 03/30/18 03/30/18 12:15 16:57 21:04 WBC RBC Hgb Hct MCV MCH MCHC RDW Plt Count MPV Absolute Neuts (auto) Neutrophils % Lymphocytes % Monocytes % Eosinophils % Basophils % Nucleated RBC % PT with INR INR PTT (Actin FS) Sodium Potassium Chloride Carbon Dioxide Anion Gap BUN Creatinine Creat Clearance w eGFR POC Glucometer 254.48143 185.49000 [phone] Random Glucose Calcium Phosphorus Magnesium Total Bilirubin AST ALT Alkaline Phosphatase Total Protein Albumin 03/31/18 03/31/18 03/31/18 05:20 05:20 05:20 WBC 12.6 H RBC 3.38 L Hgb 10.2 L Hct 30.5 L MCV 90.1 MCH 30.3 MCHC 33.6 RDW 14.8 Plt Count 533 H MPV 10.3 Absolute Neuts (auto) 8.6 Neutrophils % 68.3 Lymphocytes % 18.4 Monocytes % 9.9 Eosinophils % 1.9 Basophils % 1.5 Nucleated RBC % 0 PT with INR 13.80 H INR 1.22 H PTT (Actin FS) 27.4 D Sodium 138 Potassium 4.7 Chloride 111 H Carbon Dioxide 22 Anion Gap 5 L BUN 25 H Creatinine 0.4 L D Creat Clearance w eGFR > 60 POC Glucometer Random Glucose 137 H D Calcium 7.3 L Phosphorus 2.3 L Magnesium 2.2 Total Bilirubin 1.4 H AST 49 H ALT 66 Alkaline Phosphatase 202 H Total Protein 5.1 L Albumin 1.2 L 03/31/18 05:39 WBC RBC Hgb Hct MCV MCH MCHC RDW Plt Count MPV Absolute Neuts (auto) Neutrophils % Lymphocytes % Monocytes % Eosinophils % Basophils % Nucleated RBC % PT with INR INR PTT (Actin FS) Sodium Potassium Chloride Carbon Dioxide Anion Gap BUN Creatinine Creat Clearance w eGFR POC Glucometer [phone] Random Glucose Calcium Phosphorus Magnesium Total Bilirubin AST ALT Alkaline Phosphatase Total Protein Albumin ASSESSMENT AND PLAN: CIP Acute Hypoxic Respiratory Failure Aspiration Pneumonia ARDS resolving Incarcerated Inguinal Hernia s/p ex-lap/segmental terminal ileum resection/primary anastamosis 03/13 Suspected Acalculus Cholecystitis s/p percutaneous cholecystostomy Septic Shock resolving Acute Kidney Injury improving Lactic Acidosis resolved New onset Paroxysmal Atrial Fibrillation Diverticulosis BPH - Maintain on HFNC O2 - antibiotics per ID - rate controlled - continue anticoagulation - Daily assessment for need for lasix: hold today - monitor urine output, creatinine - Check CXR - Follow mental status and Neuro exam - enteral feeds : Will need PEG - DVT/GI prophylaxis - Low threshold for re-intubation - LTAC evaluation - continue ICU monitoring Dr Moreno Critical care time spent in reviewing chart, evaluating patient and formulating plan 35 min
[2018-03-31] MEDS ORDERED: FUROSEMIDE 40 MG/4 ML INJECTABLE VIAL IVPUSH ONE (11:45)
--- NOTE | 2018-03-31 12:13 | PN ---
Progress Note, [employer] - Note Progress Note: Slight gains in cognition, with intermittent head nod/head shake appropriately. Pt with high distractibility and impaired attention span. Pt needs cues to establish eye contact, fleeting with poor maintainance. Very weak swallow, with very depressed excursion. Vocal quality Aphonic/ hypophonic. Weak cough. Nursing reports pt can bring secretions up from pharynx, but unable to expectorate from mouth. Impaired tongue protrusion, weal labial retraction/ pursing and swollen. Prognosis for functionally swallowing is quite guarded over the short term . Reviewed with Critical Med who placed consult this am for PEG insertion.
--- NOTE | 2018-03-31 13:10 | PN ---
Progress Note (short form) - Note Progress Note: Chief Complaint: septic shock History of Present Illness: s/p lasix 40 mg IV today. On high flow NC. awake, but minimally interactive. unclear if he can follow commands. still not taking po. Current Medications Acetaminophen (Tylenol Oral Solution -) 650 mg PO Q6H PRN PRN Reason: FEVER Last Admin: 03/28/18 18:26 Dose: 650 mg Amino Acids (Prosource No Carb Liquid Pkt) 30 ml PO DAILY JUDY Last Admin: 03/31/18 10:08 Dose: 30 ml Artificial Tears (Artificial Tears) 1 drop OU BID PRN PRN Reason: DRY EYES Last Admin: 03/30/18 10:34 Dose: 1 drop Heparin Sodium (Porcine) (Heparin -) 1,000 unit IVPUSH PRN PRN PRN Reason: Heparin Last Admin: 03/25/18 17:00 Dose: 1,000 unit Heparin Sodium (Porcine) (Heparin -) 5,000 unit IVPUSH PRN PRN PRN Reason: Heparin Last Admin: 03/31/18 07:56 Dose: 5,000 unit Meropenem 1 gm/ Dextrose 100 mls @ 200 mls/hr IVPB Q8H-IV JUDY Last Admin: 03/31/18 10:09 Dose: 200 mls/hr HEPARIN SOD,PORK IN 0.45% NACL (Heparin-1/2ns 25,000 Units/500) 25,000 units in 500 mls @ 20 mls/hr IVPB TITR JUDY; Protocol Last Admin: 03/31/18 07:57 Dose: 1,450 units/hr, 29 mls/hr Vancomycin HCl 1,000 mg/ (Dextrose) 250 mls @ 166.667 mls/hr IVPB Q12H [facility]; Protocol Sodium Phosphate 30 mm/ (Dextrose) 260 mls @ 62.5 mls/hr IVPB ONCE ONE Stop: 03/31/18 14:24 Last Admin: 03/31/18 10:56 Dose: 62.5 mls/hr Insulin Aspart (Novolog Vial Sliding Scale -) 1 vial SQ ACHS [facility]; Protocol Last Admin: 03/31/18 12:55 Dose: 6 units Ondansetron HCl (Zofran Injection) 4 mg IVPUSH Q6H PRN PRN Reason: NAUSEA Pantoprazole Sodium (Protonix Iv) 40 mg IVPUSH DAILY JUDY Last Admin: 03/31/18 10:09 Dose: 40 mg Vital Signs - 24 hr 03/30/18 03/30/18 03/30/18 14:00 16:00 18:00 Temperature 99.9 F H 99.9 F H 99.5 F Pulse Rate 94 H 95 H 94 H Respiratory 33 H 33 H 32 H Rate Blood Pressure 101/46 104/53 120/57 O2 Sat by Pulse Oximetry (%) 03/30/18 03/30/18 03/30/18 18:45 20:00 20:40 Temperature Pulse Rate 92 H 95 H Respiratory 31 H Rate Blood Pressure 115/54 O2 Sat by Pulse 99 99 Oximetry (%) 03/30/18 03/30/18 03/31/18 21:00 22:00 00:00 Temperature 99 F Pulse Rate 95 H 96 H Respiratory 30 H 28 H Rate Blood Pressure 124/64 119/64 O2 Sat by Pulse 97 Oximetry (%) 03/31/18 03/31/18 03/31/18 00:25 02:00 04:00 Temperature 100 F H Pulse Rate 96 H 99 H Respiratory 30 H 27 H Rate Blood Pressure 125/63 121/61 O2 Sat by Pulse 96 Oximetry (%) 03/31/18 03/31/18 03/31/18 06:00 08:00 08:01 Temperature 100 F H Pulse Rate 94 H 94 H 94 H Respiratory 24 29 H Rate Blood Pressure 106/56 119/59 O2 Sat by Pulse 99 96 Oximetry (%) 03/31/18 03/31/18 03/31/18 08:02 09:00 10:00 Temperature 99.5 F Pulse Rate 92 H Respiratory 30 H Rate Blood Pressure 115/56 O2 Sat by Pulse 96 95 Oximetry (%) 03/31/18 11:10 Temperature Pulse Rate Respiratory Rate Blood Pressure O2 Sat by Pulse 95 Oximetry (%) Intake & Output 03/29/18 03/30/18 03/31/18 04/01/18 07:59 07:59 07:59 07:59 Intake Total 2394 2558 2364 100 Output Total 4260 3240 2220 600 Balance -8306 -872 144 -500 Weight 164 lb 9.6 oz 160 lb 4 oz 162 lb 1 oz nad no jvd trace bibasilar rales rrr nl s1s2 no mrg + bs soft nt nd 1+ dependent edema bl, no c/c pos dp pt no jaundice diaphoresis alert Labs: CBC, BMP 03/31/18 05:20 03/31/18 05:20 Laboratory Tests 03/31/18 03/31/18 05:20 05:20 INR 1.22 H Magnesium 2.2 Total Bilirubin 1.4 H AST 49 H ALT 66 Alkaline Phosphatase 202 H Albumin 1.2 L tele: NSR ecg: sr, nl intervals, no ischemic changes head ct: no acute pathology echo 02/2018: nl lv/rv, mild mr/tr/ar cxr: chf, slightly improved cxr 03/25: no sig change Assessment/Plan a/p: 82 m hx gerd, bph, here with abd pain/sepsis - found to have sbo, now s/p OR hospital course c/b new afib. septic shock/sbo/cholecystitis/asp pna: -s/p ex-lap/segmental terminal ileum resection/primary anastamosis 03/13 -Suspected Acalculus Cholecystitis s/p percutaneous cholecystostomy 03/20 - asp pna -now extubated, off pressors. bp stable. cont abx per ID -receiving IV lasix prn per CXR appearing congested. 03/22, 03/24, 03/26, 03/28, 03/29 , 03/31. -same plan new pafib --> conversion to sr: -new onset here. rate controlled w/o meds. 03/25 converted to sr-->remains in sinus -echo unremarkable -chadsvasc warrants ac. continue UFH gtt --> NOAC once able to take po
--- NOTE | 2018-03-31 13:19 | PN ---
Physical Exam: SUBJECTIVE: No acute events overnight. Pt to be seen by [facility] rep to assess for potential LTAC acceptance. Today pt is more alert and moves his ankle and toes more than previously seen. He has nodding and can smile, but is still quite weak. OBJECTIVE: Vital Signs Period Temp Pulse Resp BP Sys/Ceballos Pulse Ox Last 24 Hr 99 F-100 F 91-99 24-33 101-125/46-64 95-99 GENERAL: NAD, alert to spontaneous stimuli, listens to commands (more alert than yesterday) HEENT: KITTY, EOMI, NG in place, dry MM, swollen lips Neck: L IJ line site C/D/I, minimal JVD LUNGS: Improved lung sounds with faint scattered coarse sounds. On high flow O2 50L/min. 40% FiO2 HEART: RRR, S1, S2 without murmur ABDOMEN: Soft, nondistended, nontender, Midline incision C/D/I, C-tube draining brown fluid EXTREMITIES: 2+ DP pulses, warm, 1+ ankle edema SKIN: Warm, dry, no rash or lesions currently Laboratory Results - last 24 hr 03/30/18 03/30/18 03/31/18 16:57 21:04 05:20 WBC 12.6 H RBC 3.38 L Hgb 10.2 L Hct 30.5 L MCV 90.1 MCH 30.3 MCHC 33.6 RDW 14.8 Plt Count 533 H MPV 10.3 Absolute Neuts (auto) 8.6 Neutrophils % 68.3 Lymphocytes % 18.4 Monocytes % 9.9 Eosinophils % 1.9 Basophils % 1.5 Nucleated RBC % 0 PT with INR INR PTT (Actin FS) Sodium Potassium Chloride Carbon Dioxide Anion Gap BUN Creatinine Creat Clearance w eGFR POC Glucometer 185.24422 243.62313 Random Glucose Calcium Phosphorus Magnesium Total Bilirubin AST ALT Alkaline Phosphatase Total Protein Albumin 03/31/18 03/31/18 03/31/18 05:20 05:20 05:39 WBC RBC Hgb Hct MCV MCH MCHC RDW Plt Count MPV Absolute Neuts (auto) Neutrophils % Lymphocytes % Monocytes % Eosinophils % Basophils % Nucleated RBC % PT with INR 13.80 H INR 1.22 H PTT (Actin FS) 27.4 D Sodium 138 Potassium 4.7 Chloride 111 H Carbon Dioxide 22 Anion Gap 5 L BUN 25 H Creatinine 0.4 L D Creat Clearance w eGFR > 60 POC Glucometer 168.50734 Random Glucose 137 H D Calcium 7.3 L Phosphorus 2.3 L Magnesium 2.2 Total Bilirubin 1.4 H AST 49 H ALT 66 Alkaline Phosphatase 202 H Total Protein 5.1 L Albumin 1.2 L Active Medications Generic Name Dose Route Start Last Admin Trade Name Freq PRN Reason Stop Dose Admin Acetaminophen 650 mg 03/27/18 13:00 03/28/18 18:26 Tylenol Oral Solution - PO 650 mg Q6H PRN Administration FEVER Amino Acids 30 ml 03/24/18 13:00 03/31/18 10:08 Prosource No Carb Liquid Pkt PO 30 ml DAILY JUDY Administration Artificial Tears 1 drop 03/24/18 10:59 03/30/18 10:34 Artificial Tears OU 1 drop BID PRN Administration DRY EYES Heparin Sodium (Porcine) 1,000 unit 03/20/18 14:07 03/25/18 17:00 Heparin - IVPUSH 1,000 unit PRN PRN Administration Heparin Heparin Sodium (Porcine) 5,000 unit 03/20/18 14:07 03/31/18 07:56 Heparin - IVPUSH 5,000 unit PRN PRN Administration Heparin Meropenem 1 gm/ Dextrose 100 mls @ 200 mls/hr 03/19/18 18:00 03/31/18 10:09 IVPB 200 mls/hr Q8H-IV JUDY Administration HEPARIN SOD,PORK IN 0.45% NACL 25,000 units in 500 mls @ 20 mls/hr 03/20/18 14 :15 03/31/18 07:57 Heparin-1/2ns 25,000 Units/500 IVPB 1,450 units/hr TITR JUDY 29 mls/hr Administration Protocol 1,000 UNITS/HR Vancomycin HCl 1,000 mg/ 250 mls @ 166.667 mls/hr 03/29/18 04:00 Dextrose IVPB Q12H JUDY Protocol Sodium Phosphate 30 mm/ 260 mls @ 62.5 mls/hr 03/31/18 10:15 03/31/18 10:56 Dextrose IVPB 03/31/18 14:24 62.5 mls/hr ONCE ONE Administration Insulin Aspart 1 vial 03/23/18 11:00 03/31/18 12:55 Novolog Vial Sliding Scale - SQ 6 units ACHS JUDY Administration Protocol Ondansetron HCl 4 mg 03/13/18 04:30 Zofran Injection IVPUSH Q6H PRN NAUSEA Pantoprazole Sodium 40 mg 03/13/18 10:00 03/31/18 10:09 Protonix Iv IVPUSH 40 mg DAILY JUDY Administration ASSESSMENT/PLAN: 1) Acute hypoxic respiratory failure --Resolving, extubated; 03/28 --Continue High flow O2 and maintain maintain SpO2 >90% --Aspiration precautions: HOB elevated 2) Septic shock 2/2 to bowel ischemia in addition to aspiration PNA --ID on board --Meropenem to continue --Vancomycin discontinued 3) Toxic metabolic neuropathy --Continue PT --Awaiting evaluation for LTAC at [facility] for intensive physical therapy --Will have to wait to engage in oral medications (can most likely switch to NOACs once able to swallow) 4) Elevated LFTs --Stable --Discussed with Dr. Fox and will need to keep C-tube for long duration before pulling 5) Atrial flutter/fib --Cardiology consulted --Heparin gtt remains; monitor aPtt; see above regarding NOACs --Echo unremarkable FEN: Fluids: Avoid Electrolyte abnormalities: pseudohypocalcemia Nutrition: NGT feeds ongoing; rate 50 with prosource on board; increase from 1.5 protein to 2.0; discuss PEG? PPX: DVT - Heparin gtt on already GI - Protonix 40mg IVP daily Dispo: Continue ICU monitoring; awaiting LTAC decision Case discussed with Dr. Mati White, DO - IM PGY-1 Visit type - Emergency Visit Emergency Visit: No - New Patient This patient is new to me today: No - Critical Care Critical Care patient: Yes Total Critical Care Time (in minutes): 40 Critical Care Statement: The care of this patient involved high complexity decision making to prevent further life threatening deterioration of the patient 's condition and/or to evaluate & treat vital organ system(s) failure or risk of failure.
--- NOTE | 2018-03-31 13:20 | PN ---
Physical Exam: SUBJECTIVE: Patient seen and examined. More awake and alert today. Still not able to phonate. High flow nasal cannula. OBJECTIVE: Vital Signs Period Temp Pulse Resp BP Sys/Ceballos Pulse Ox Last 24 Hr 99 F-100 F 91-99 24-33 101-125/46-64 95-99 GENERAL: The patient is awake, alert. follows commands. unable to phonate. EYES: PERRL, sclera anicteric, conjunctiva clear. No ptosis. ENT: NG Tube placed LUNGS: Diffuse scattered rhonchi bilaterally with high flow 02 HEART: Regular rate and rhythm, S1, S2 without murmur, rub or gallop. ABDOMEN: Midline vertical surgical wound. Soft, nontender, nondistended, (+) bowel sounds. RUQ LEIF draining EXTREMITIES: 1+ pitting edema of LE bilaterally. NEUROLOGICAL: Unable to assess Laboratory Results - last 24 hr 03/30/18 03/30/18 03/31/18 16:57 21:04 05:20 WBC 12.6 H RBC 3.38 L Hgb 10.2 L Hct 30.5 L MCV 90.1 MCH 30.3 MCHC 33.6 RDW 14.8 Plt Count 533 H MPV 10.3 Absolute Neuts (auto) 8.6 Neutrophils % 68.3 Lymphocytes % 18.4 Monocytes % 9.9 Eosinophils % 1.9 Basophils % 1.5 Nucleated RBC % 0 PT with INR INR PTT (Actin FS) Sodium Potassium Chloride Carbon Dioxide Anion Gap BUN Creatinine Creat Clearance w eGFR POC Glucometer 185.82485 243.11067 Random Glucose Calcium Phosphorus Magnesium Total Bilirubin AST ALT Alkaline Phosphatase Total Protein Albumin 03/31/18 03/31/18 03/31/18 05:20 05:20 05:39 WBC RBC Hgb Hct MCV MCH MCHC RDW Plt Count MPV Absolute Neuts (auto) Neutrophils % Lymphocytes % Monocytes % Eosinophils % Basophils % Nucleated RBC % PT with INR 13.80 H INR 1.22 H PTT (Actin FS) 27.4 D Sodium 138 Potassium 4.7 Chloride 111 H Carbon Dioxide 22 Anion Gap 5 L BUN 25 H Creatinine 0.4 L D Creat Clearance w eGFR > 60 POC Glucometer 168.06218 Random Glucose 137 H D Calcium 7.3 L Phosphorus 2.3 L Magnesium 2.2 Total Bilirubin 1.4 H AST 49 H ALT 66 Alkaline Phosphatase 202 H Total Protein 5.1 L Albumin 1.2 L Active Medications Generic Name Dose Route Start Last Admin Trade Name Freq PRN Reason Stop Dose Admin Acetaminophen 650 mg 03/27/18 13:00 03/28/18 18:26 Tylenol Oral Solution - PO 650 mg Q6H PRN Administration FEVER Amino Acids 30 ml 03/24/18 13:00 03/31/18 10:08 Prosource No Carb Liquid Pkt PO 30 ml DAILY JUDY Administration Artificial Tears 1 drop 03/24/18 10:59 03/30/18 10:34 Artificial Tears OU 1 drop BID PRN Administration DRY EYES Heparin Sodium (Porcine) 1,000 unit 03/20/18 14:07 03/25/18 17:00 Heparin - IVPUSH 1,000 unit PRN PRN Administration Heparin Heparin Sodium (Porcine) 5,000 unit 03/20/18 14:07 03/31/18 07:56 Heparin - IVPUSH 5,000 unit PRN PRN Administration Heparin Meropenem 1 gm/ Dextrose 100 mls @ 200 mls/hr 03/19/18 18:00 03/31/18 10:09 IVPB 200 mls/hr Q8H-IV JUDY Administration HEPARIN SOD,PORK IN 0.45% NACL 25,000 units in 500 mls @ 20 mls/hr 03/20/18 14 :15 03/31/18 07:57 Heparin-1/2ns 25,000 Units/500 IVPB 1,450 units/hr TITR JUDY 29 mls/hr Administration Protocol 1,000 UNITS/HR Vancomycin HCl 1,000 mg/ 250 mls @ 166.667 mls/hr 03/29/18 04:00 Dextrose IVPB Q12H JUDY Protocol Sodium Phosphate 30 mm/ 260 mls @ 62.5 mls/hr 03/31/18 10:15 03/31/18 10:56 Dextrose IVPB 03/31/18 14:24 62.5 mls/hr ONCE ONE Administration Insulin Aspart 1 vial 03/23/18 11:00 03/31/18 12:55 Novolog Vial Sliding Scale - SQ 6 units ACHS JUDY Administration Protocol Ondansetron HCl 4 mg 03/13/18 04:30 Zofran Injection IVPUSH Q6H PRN NAUSEA Pantoprazole Sodium 40 mg 03/13/18 10:00 03/31/18 10:09 Protonix Iv IVPUSH 40 mg DAILY JUDY Administration ASSESSMENT/PLAN: Patient is an 82 year old male who presented with abdominal pain and was found to have SBO with bowel ischemia from incarcerated hernia and developed acute respiratory failure from septic shock. Patient admitted for further monitoring and management. Pulm: #Acute Hypoxic Respiratory Failure -Likely secondary to Septic shock from Bowel ischemia and Aspiration PNA -Patient s/p extubation (03/28) and saturating well on high flow volume 50%. Patient remains non-verbal possibly due to vocal cord paralysis/Laryngeal edema/ scar or granluation tissue. -Lasix PRN. 1x dose today. -Maintain SpO2 >90% -Incentive spirometry ordered ID: #Septic Shock secondary to SBO and bowel Ischemia - Afebrile -Patient remains off pressors -Continue Meropenem 1gm Q8H (DAY #12) and vancomycin 1gm daily. -Will follow up with ID for deescalation of Abx GI: #Ischemic bowel and incarcerated inguinal Hernia -s/p ex lap and partial bowel resection (03/13) -Stables removed today by Surgery -C-TUBE in place and continues to drain bile -Continue to monitor LFT's -GI consulted for PEG tube placement. Cardio: #New onset Atrial Flutter/Atrial Fibrillation -Currently rate controlled and in normal sinus rhythm -Will continue Heparin drip with future plans to bridge with oral AC Vascular: #Right IJ thrombus -Patient currently on Heparin Drip Neuro: #Critical Illness Neuropathy -Continue physical therapy F/E/N -On no fluids -Electrolytes wnl -NPO on NGT feeds Prophylaxis -Heparin drip for DVT -Protonix 40mg IVP daily for GI Dispo -Full code -[facility] notified for evaluation and possible transfer for extensive PT Visit type - Emergency Visit Emergency Visit: Yes ED Registration Date: 03/12/18 Care time: The patient presented to the Emergency Department on the above date and was hospitalized for further evaluation of their emergent condition. - New Patient This patient is new to me today: No - Critical Care Critical Care patient: Yes Total Critical Care Time (in minutes): 40 Critical Care Statement: The care of this patient involved high complexity decision making to prevent further life threatening deterioration of the patient 's condition and/or to evaluate & treat vital organ system(s) failure or risk of failure.
--- NOTE | 2018-03-31 13:22 | PN ---
Progress Note, Physician History of Present Illness: continues to improve more awake and alert family in room tolerating ng feeds - Current Medication List Current Medications: Active Medications Acetaminophen (Tylenol Oral Solution -) 650 mg PO Q6H PRN PRN Reason: FEVER Last Admin: 03/28/18 18:26 Dose: 650 mg Amino Acids (Prosource No Carb Liquid Pkt) 30 ml PO DAILY JUDY Last Admin: 03/31/18 10:08 Dose: 30 ml Artificial Tears (Artificial Tears) 1 drop OU BID PRN PRN Reason: DRY EYES Last Admin: 03/30/18 10:34 Dose: 1 drop Heparin Sodium (Porcine) (Heparin -) 1,000 unit IVPUSH PRN PRN PRN Reason: Heparin Last Admin: 03/25/18 17:00 Dose: 1,000 unit Heparin Sodium (Porcine) (Heparin -) 5,000 unit IVPUSH PRN PRN PRN Reason: Heparin Last Admin: 03/31/18 07:56 Dose: 5,000 unit Meropenem 1 gm/ Dextrose 100 mls @ 200 mls/hr IVPB Q8H-IV JUDY Last Admin: 03/31/18 10:09 Dose: 200 mls/hr HEPARIN SOD,PORK IN 0.45% NACL (Heparin-1/2ns 25,000 Units/500) 25,000 units in 500 mls @ 20 mls/hr IVPB TITR JUDY; Protocol Last Admin: 03/31/18 07:57 Dose: 1,450 units/hr, 29 mls/hr Vancomycin HCl 1,000 mg/ (Dextrose) 250 mls @ 166.667 mls/hr IVPB Q12H JUDY; Protocol Sodium Phosphate 30 mm/ (Dextrose) 260 mls @ 62.5 mls/hr IVPB ONCE ONE Stop: 03/31/18 14:24 Last Admin: 03/31/18 10:56 Dose: 62.5 mls/hr Insulin Aspart (Novolog Vial Sliding Scale -) 1 vial SQ ACHS JUDY; Protocol Last Admin: 03/31/18 12:55 Dose: 6 units Ondansetron HCl (Zofran Injection) 4 mg IVPUSH Q6H PRN PRN Reason: NAUSEA Pantoprazole Sodium (Protonix Iv) 40 mg IVPUSH DAILY [facility] Last Admin: 03/31/18 10:09 Dose: 40 mg - Objective Vital Signs: Vital Signs Temperature 99.4 F 03/31/18 12:00 Pulse Rate 91 H 03/31/18 12:00 Respiratory Rate 26 H 03/31/18 12:00 Blood Pressure 123/60 03/31/18 12:00 O2 Sat by Pulse Oximetry (%) 95 03/31/18 11:10 Constitutional: Yes: Calm, Mild Distress Neck: Yes: Supple Cardiovascular: Yes: Regular Rate and Rhythm Respiratory: Yes: Regular, Poor Air Entry Gastrointestinal: Yes: Normal Bowel Sounds, Soft Musculoskeletal: Yes: WNL Edema: LLE: 1+, RLE: 1+ Neurological: Yes: Alert Labs: CBC, BMP 03/31/18 05:20 03/31/18 05:20 INR, PTT INR 1.22 (0.82-1.09) H 03/31/18 05:20 Assessment/Plan Problem List - Problems (1) Strangulated inguinal hernia Pulmonary evaluation - weaning today? GI Evaluation - Tbili 3.5, 3.6 BP goal MAP 65-70, has a stapled small bowel anastomosis avoid lwo flow states will follow Code(s): K40.30 - UNIL INGUINAL HERNIA, W OBST, W/O GANGR, NOT SPCF RECUR (2) Incarcerated left inguinal hernia Code(s): K40.30 - UNIL INGUINAL HERNIA, W OBST, W/O GANGR, NOT SPCF RECUR (3) BPH (benign prostatic hyperplasia) Code(s): N40.0 - BENIGN PROSTATIC HYPERPLASIA WITHOUT LOWER URINRY TRACT SYMP Qualifiers: Lower urinary tract symptom presence: symptoms present Lower urinary tract symptom detail: urinary frequency Qualified Code(s): N40.1 - Benign prostatic hyperplasia with lower urinary tract symptoms; R35.0 - Frequency of micturition ; R35.0 - Frequency of micturition (4) DDD (degenerative disc disease), cervical Code(s): M50.30 - OTHER CERVICAL DISC DEGENERATION, UNSP CERVICAL REGION (5) SBO (small bowel obstruction) Code(s): K56.609 - UNSP INTESTNL OBST, UNSP TO PARTIAL VERSUS COMPLETE OBST (6) Aspiration pneumonia of both lower lobes due to gastric secretions Code(s): J69.0 - PNEUMONITIS DUE TO INHALATION OF FOOD AND VOMIT r/o acalculus choley plan continue abx on hig flow nasal canula rest as per icu aggressive chest pt improving monitor wbc monitor for fever will consider deescalating vanco tomorrow xray labs noted cc 40 min
--- NOTE | 2018-03-31 13:52 | PN ---
Teaching Attending Note Name of Resident: Mukul White ATTENDING PHYSICIAN STATEMENT I saw and evaluated the patient. I reviewed the resident's note and discussed the case with the resident. I agree with the resident's findings and plan as documented. SUBJECTIVE: No events over night , shakes his head no to pain and discomfort . OBJECTIVE: Awake , follows some commands .wiggle toes , moves ankles , can't squeeze. tracks. CV: RRR. Lungs; clear anteriorly Abd: + BS. mid line surgical wound. RUQ LEIF drain with brown fluid. Ext: 1+ edema on LE ASSESSMENT AND PLAN: Unfortunate 82 y/o gentleman with h/o DJD, GERD, diverticulosis and other medical problems who presented with abd pain and was found to have SBO with bowel ischemia , and incarcerated hernia and developed acute resp failure and septic shock. 1- Acute hypoxic resp failure. due to severe sepsis and b/l PNA /ARDS. - Lasix as needed 2- Septic shock. resolved - did not receive vanco since 03/29. will d/w ID . 3- Ischemic bowel and incarcerated inguinal hernia : s/p exploratory laparotomy and partial small bowel resection. 4- Possible acalculus cholecystitis : s/p cholecystostomy tube -d/w Dr. Nance. to determine plan for tube 5-New onset A flutter/A fib : now in sinus rhythm. - Cont heparin gtt. will switch to po AC if can take po , or through NG if unable to feed and ready for transfer - rate controlled 6- R IJ thrombus /DVT: - cont heparin gtt . PO as above 7- S/P extubation. non verbal yet. possible vocal cord paralysis or granulation tissue. risk for aspiration - if no improvement , might need ENT eval - speech and swallow eval. MBS when possible 8- ICU neuropathy. PT and monitor dispo : to be evaluated by [facility] for a transfer to LTAC .
--- NOTE | 2018-03-31 17:20 | CON.GI ---
Consult Consult Specialty:: GI: Dr. Rodriguez covering for Dr. Johnston Referred by:: Hospitalist Service Reason for Consultation:: Dysphagia - History of Present Illness Chief Complaint: Dysphagia History of Present Illness: 82M admitted initially for N/V and groin pain, underwent Ex Lap 03/13/18 leading to resection of terminal ileum that was incarcerated in a inguinal hernia. He developed ARDS secondary to severe aspiration PNA. He subsequently developed a.fib/flutter, is on heparin deip and had a cholecystostomy tube placed 03/20 secondary to fevers and sludge in bile duct. He was recently extubated and is now maintgained on high flow nasal O2. He is tolerating tube feeds. Per critical care team he has critical illness polyneuropathy and failed swallow eval today. Aksed to evaluate for PEG. and Son present at bedside. - History Source History Provided By: Family Member - Past Medical History Renal/: Yes: BPH Musculoskeletal: Yes: Osteoarthritis Additional Medical History: Denies per family - Past Surgical History Past Surgical History: Yes: Hernia Repair (umbilcal?) - Alcohol/Substance Use Hx Alcohol Use: No History of Substance Use: reports: None - Smoking History Smoking history: Never smoked Have you smoked in the past 12 months: No - Social History Usual Living Arrangement: With Spouse (49yrs) Occupation: Retired [employer] Place of : [facility] History of Recent Travel: No Home Medications - Allergies Allergies/Adverse Reactions: Allergies Allergy/AdvReac Type Severity Reaction Status Date / Time Fish Containing Products Allergy Verified 03/12/18 13:39 - Home Medications Home Medications: Ambulatory Orders Finasteride 5 mg PO DAILY 03/12/18 Omeprazole 20 mg PO DAILY 03/12/18 Tamsulosin HCl 0.4 mg PO DAILY 03/12/18 Family Disease History - Family Disease History Other Family History: Non-Contribuatory Review of Systems - Review of Systems Cardiovascular: denies: Chest Pain Respiratory: reports: Cough, SOB Gastrointestinal: denies: Abdominal Pain, Vomiting Physical Exam-GI Vital Signs: Vital Signs Temperature 99.7 F H 03/31/18 16:00 Pulse Rate 94 H 03/31/18 16:00 Respiratory Rate 30 H 03/31/18 16:00 Blood Pressure 122/59 03/31/18 16:00 O2 Sat by Pulse Oximetry (%) 96 03/31/18 16:21 Constitutional: Yes: Calm, Other Eyes: No: Sclera Icterus Cardiovascular: Yes: Regular Rate and Rhythm (difficult. heart sounds obscured somewhat by respiratory noise and noise from oxygen supplemntation) Respiratory: Yes: Diminished (at bases bilaterally with poor insp effort) Gastrointestinal Inspection: Yes: Scars (midline vertical surgical scar extending to upper abdomen.). No: Distention ...Auscultate: Yes: Normoactive Bowel Sounds ...Palpate: No: Hepatomegaly, Splenomegaly, Tenderness ...Percussion: No: Tympanitic Edema: No (No LE edema) Neurological: Yes: Alert Labs: CBC, BMP 03/31/18 05:20 03/31/18 05:20 INR, PTT INR 1.22 (0.82-1.09) H 03/31/18 05:20 Hepatic Panel Total Bilirubin 1.4 mg/dL (0.2-1.0) H 03/31/18 05:20 Direct Bilirubin 0.5 mg/dL (0.0-0.2) H 03/13/18 19:30 AST 49 U/L (15-37) H 03/31/18 05:20 ALT 66 U/L (12-78) 03/31/18 05:20 Alkaline Phosphatase 202 U/L (45-117) H 03/31/18 05:20 Albumin 1.2 g/dl (3.4-5.0) L 03/31/18 05:20 Problem List - Problems (1) Dysphagia Assessment/Plan: Discussed the needs for enteral feeding in the setting of Mr. Guido being unable to safely swallow. I discussed PEG with both his and Son. Discussed potential risks of the procedure like but not limited to bleeding, perforation requiring surgery to repair, infection, sedation medication effetcs , perotinitis if the tube was prematurely dislodged, all of which could be potentially liufe threatening. If it is felt that respiratory status does not allow for EGD/PEG, we also discussed alternative means of gastrostomy placement such as by interventional radiology. Both Mrs. Guido and her son would like to think about these options in the hope that Mr. Guido will begin to swallow on his own. They understand that NGT feeding is usually not recommended more than 30 days given potential risk for complications such as sinusitis, esophageal trauma. Aspiration Pecautions Code(s): R13.10 - DYSPHAGIA, UNSPECIFIED Qualifiers: Dysphagia type: unspecified Qualified Code(s): R13.10 - Dysphagia, unspecified
[2018-03-31] MEDS: ACETAMINOPHEN 650 MG/20.3 ML ORAL SOLUTION (CUPS) PO PRN (23:08)
[2018-04-01] MEDS ORDERED: PT OWN MED DRAWER 7, Y5N ONE ×4 (02:13→18:23)
[2018-04-01] MEDS: MEROPENEM 1 GM in DEXTROSE 5%-WATER 100 ML IVPB SCH ×3 (02:16→18:24)
[2018-04-01 06:22] LABS: HEMATOCRIT 32.2 % (35.4-49); HEMOGLOBIN 10.9 GM/dL (11.7-16.9); MCH 30.6 pg (25.7-33.7); MCHC 33.8 g/dl (32.0-35.9); MEAN CELL VOLUME 90.7 fl (80-96); MEAN PLT VOLUME 10.3 fl (7.5-11.1); PLATELET COUNT 630 K/MM3 (134-434); RBC 3.55 M/mm3 (4.00-5.60); RDW 14.9 % (11.9-15.9); WHITE BLOOD COUNT 14.8 K/mm3 (4.0-10.0)
[2018-04-01] MEDS: INSULIN SLIDING SCALE (NOVOLOG) 1 VIAL SQ SCH ×4 (06:34→21:45)
[2018-04-01 06:50] LABS: CHLORIDE 108 mmol/L (98-107); POTASSIUM 4.5 mmol/L (3.5-5.1); SODIUM 136 mmol/L (136-145)
[2018-04-01 06:57] LABS: ALBUMIN 1.3 g/dl (3.4-5.0); ALK PHOS 260 U/L (45-117); ANION GAP 7 (8-16); BILIRUBIN,TOTAL 1.4 mg/dL (0.2-1.0); BLOOD UREA NITROGEN 26 mg/dL (7-18); CALCIUM 7.6 mg/dL (8.5-10.1); CO2 21 mmol/L (21-32); CREATININE 0.4 mg/dL (0.7-1.3); GLUCOSE,RANDOM 179 mg/dL (74-106); MAGNESIUM 2.2 mg/dL (1.8-2.4); PHOSPHOROUS 2.5 mg/dL (2.5-4.9); SGOT/AST 61 U/L (15-37); SGPT/ALT 77 U/L (12-78); TOT PROT 5.7 g/dl (6.4-8.2)
--- NOTE | 2018-04-01 09:22 | PN ---
Progress Note, Physician Chief Complaint: SBO History of Present Illness: 82 yo male PMH BPH, degernerative disc disease (cervical), diverticulosis, hemorrhoids presented to the ED with abdominal pain and vomiting for on day. He reports that he was weight training yesterday and developed some groin pain. 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 gradually more responsive, intermittent clinical improvement. - Current Medication List Current Medications: Active Medications Acetaminophen (Tylenol Oral Solution -) 650 mg PO Q6H PRN PRN Reason: FEVER Last Admin: 03/31/18 23:08 Dose: 650 mg Amino Acids (Prosource No Carb Liquid Pkt) 30 ml PO DAILY JUDY Last Admin: 03/31/18 10:08 Dose: 30 ml Artificial Tears (Artificial Tears) 1 drop OU BID PRN PRN Reason: DRY EYES Last Admin: 03/30/18 10:34 Dose: 1 drop Heparin Sodium (Porcine) (Heparin -) 1,000 unit IVPUSH PRN PRN PRN Reason: Heparin Last Admin: 03/25/18 17:00 Dose: 1,000 unit Heparin Sodium (Porcine) (Heparin -) 5,000 unit IVPUSH PRN PRN PRN Reason: Heparin Last Admin: 03/31/18 07:56 Dose: 5,000 unit Meropenem 1 gm/ Dextrose 100 mls @ 200 mls/hr IVPB Q8H-IV JUDY Last Admin: 04/01/18 02:16 Dose: 200 mls/hr HEPARIN SOD,PORK IN 0.45% NACL (Heparin-1/2ns 25,000 Units/500) 25,000 units in 500 mls @ 20 mls/hr IVPB TITR JUDY; Protocol Last Admin: 03/31/18 20:11 Dose: 1,400 units/hr, 28 mls/hr Vancomycin HCl 1,000 mg/ (Dextrose) 250 mls @ 166.667 mls/hr IVPB Q12H JUDY; Protocol Insulin Aspart (Novolog Vial Sliding Scale -) 1 vial SQ ACHS JUDY; Protocol Last Admin: 04/01/18 06:34 Dose: 2 units Ondansetron HCl (Zofran Injection) 4 mg IVPUSH Q6H PRN PRN Reason: NAUSEA Pantoprazole Sodium (Protonix Iv) 40 mg IVPUSH DAILY JUDY Last Admin: 03/31/18 10:09 Dose: 40 mg - Objective Vital Signs: Vital Signs Temperature 99.5 F 04/01/18 06:00 Pulse Rate 93 H 04/01/18 09:15 Respiratory Rate 28 H 04/01/18 06:00 Blood Pressure 123/64 04/01/18 06:00 O2 Sat by Pulse Oximetry (%) 100 04/01/18 09:15 Vital Signs Period Temp Pulse Resp BP Sys/Ceballos Pulse Ox Last 24 Hr 99.2 F-100.2 F 84-103 26-32 111-131/54-67 95-100 Intake & Output 03/31/18 04/01/18 04/01/18 23:59 07:59 15:59 Intake Total 446 1156 Output Total 1040 750 Balance -594 406 Weight 154 lb 2 oz Intake: IV 346 336 HEPARIN-1/2NS 25,000 346 336 UNITS/500 25,000 units In 500 ml @ 1,000 UNITS/HR 20 mls/hr IVPB TITR JUDY Rx#:[id number] IVPB 100 100 Tube Feeding 600 Tube Irrigant 120 Output: Drainage 40 50 Right Upper Abdomen 40 50 Urine 1000 700 Quintero 1000 700 Other: Voiding Method Indwelling Catheter Bowel Movement Yes No # Bowel Movements 1 Weight Measurement Method Built in [facility] Constitutional: Yes: Well Nourished, No Distress, Calm Eyes: Yes: Conjunctiva Clear, EOM Intact HENT: Yes: Atraumatic, Normocephalic Neck: Yes: Supple, Trachea Midline Cardiovascular: Yes: Regular Rate and Rhythm, S1, S2 Respiratory: Yes: Regular, CTA Bilaterally Gastrointestinal: Yes: Normal Bowel Sounds, Soft. No: Tenderness ...Rectal Exam: Yes: Deferred Genitourinary: No: CVA Tenderness - Left, CVA Tenderness - Right Integumentary: Yes: WNL Wound/Incision: Yes: Clean/Dry, Well Approximated Neurological: Yes: Alert Psychiatric: Yes: Alert Labs: CBC, BMP 04/01/18 05:30 04/01/18 05:30 INR, PTT INR 1.22 (0.82-1.09) H 03/31/18 05:20 Problem List - Problems (1) Strangulated inguinal hernia Assessment/Plan: 82yo male MMP relatively healthy with SBO abdominal pain non reducible LIH, unclear transition point and no clear bowel ischemia identified. Bibasilar pulmonary consolidation and hoarsness may be a sequela of an aspiration. POD#18 s/p Exploratory Laparotomy, segmental ressection of SB and primary stapled anastomosis for strangulated RIH. low grade fevers persists. Patient has soft bowel movements. Extubated on high flow NC. S/p percutaneous cholecystostomy. Surgical gastrostomy being discussed ICU management continue quintero for I&O NGT feeds to goal for IBW Add Prostat TID IV antibiotics per ID Cholecystostomy management per IR Physical Therapy followup GI and DVT prophylaxsis D/C planning to [facility] in [place] will follow peripherally This patient is critically ill. Time spent reviewing chart, examining patient, talking with providers and/or family and documentation is 35 minutes Code(s): K40.30 - UNIL INGUINAL HERNIA, W OBST, W/O GANGR, NOT SPCF RECUR (2) Incarcerated left inguinal hernia Code(s): K40.30 - UNIL INGUINAL HERNIA, W OBST, W/O GANGR, NOT SPCF RECUR (3) BPH (benign prostatic hyperplasia) Code(s): N40.0 - BENIGN PROSTATIC HYPERPLASIA WITHOUT LOWER URINRY TRACT SYMP Qualifiers: Lower urinary tract symptom presence: symptoms present Lower urinary tract symptom detail: urinary frequency Qualified Code(s): N40.1 - Benign prostatic hyperplasia with lower urinary tract symptoms; R35.0 - Frequency of micturition ; R35.0 - Frequency of micturition (4) DDD (degenerative disc disease), cervical Code(s): M50.30 - OTHER CERVICAL DISC DEGENERATION, UNSP CERVICAL REGION (5) SBO (small bowel obstruction) Code(s): K56.609 - UNSP INTESTNL OBST, UNSP TO PARTIAL VERSUS COMPLETE OBST (6) Aspiration pneumonia of both lower lobes due to gastric secretions Code(s): J69.0 - PNEUMONITIS DUE TO INHALATION OF FOOD AND VOMIT
[2018-04-01] MEDS: AMINO ACIDS/PROTEIN HYDROLYS 30 ML LIQUID.PKT PO SCH (10:24)
[2018-04-01] MEDS: PANTOPRAZOLE SODIUM 40 MG VIAL IVPUSH SCH (10:24)
--- NOTE | 2018-04-01 10:40 | PN ---
Progress Note (short form) - Note Progress Note: Chief Complaint: septic shock History of Present Illness: awake, but minimally interactive. not communicating. no overnight events. Current Medications Generic Name Dose Route Start Last Admin Trade Name Freq PRN Reason Stop Dose Admin Acetaminophen 650 mg 03/27/18 13:00 03/31/18 23:08 Tylenol Oral Solution - PO 650 mg Q6H PRN Administration FEVER Amino Acids 30 ml 03/24/18 13:00 04/01/18 10:24 Prosource No Carb Liquid Pkt PO 30 ml DAILY JUDY Administration Artificial Tears 1 drop 03/24/18 10:59 03/30/18 10:34 Artificial Tears OU 1 drop BID PRN Administration DRY EYES Heparin Sodium (Porcine) 1,000 unit 03/20/18 14:07 03/25/18 17:00 Heparin - IVPUSH 1,000 unit PRN PRN Administration Heparin Heparin Sodium (Porcine) 5,000 unit 03/20/18 14:07 03/31/18 07:56 Heparin - IVPUSH 5,000 unit PRN PRN Administration Heparin Meropenem 1 gm/ Dextrose 100 mls @ 200 mls/hr 03/19/18 18:00 04/01/18 10:18 IVPB 200 mls/hr Q8H-IV JUDY Administration HEPARIN SOD,PORK IN 0.45% NACL 25,000 units in 500 mls @ 20 mls/hr 03/20/18 14 :15 04/01/18 09:56 Heparin-1/2ns 25,000 Units/500 IVPB 1,300 units/hr TITR JUDY 26 mls/hr Titration Protocol 1,000 UNITS/HR Vancomycin HCl 1,000 mg/ 250 mls @ 166.667 mls/hr 03/29/18 04:00 Dextrose IVPB Q12H JUDY Protocol Insulin Aspart 1 vial 03/23/18 11:00 04/01/18 06:34 Novolog Vial Sliding Scale - SQ 2 units ACHS JUDY Administration Protocol Ondansetron HCl 4 mg 03/13/18 04:30 Zofran Injection IVPUSH Q6H PRN NAUSEA Pantoprazole Sodium 40 mg 03/13/18 10:00 04/01/18 10:24 Protonix Iv IVPUSH 40 mg DAILY JUDY Administration Vital Signs Period Temp Pulse Resp BP Sys/Ceballos Pulse Ox Last 24 Hr 99.2 F-100.2 F 84-103 24-32 111-131/54-67 95-100 nad no jvd trace bibasilar rales, poor eff rrr nl s1s2 no mrg + bs soft nt nd 1+ dependent edema bl, no c/c no jaundice diaphoresis lethargic Labs: CBC, BMP 04/01/18 05:30 04/01/18 05:30 tele: SR ecg: sr, nl intervals, no ischemic changes head ct: no acute pathology echo 02/2018: nl lv/rv, mild mr/tr/ar cxr: chf, slightly improved cxr 03/25: no sig change Assessment/Plan a/p: 82 m hx gerd, bph, here with abd pain/sepsis - found to have sbo, now s/p OR hospital course c/b new afib. septic shock/sbo/cholecystitis/asp pna: -s/p ex-lap/segmental terminal ileum resection/primary anastamosis 03/13 -Suspected Acalculus Cholecystitis s/p percutaneous cholecystostomy 03/20 - asp pna -now extubated, off pressors. bp stable. cont abx per ID -receiving IV lasix prn per CXR appearing congested. cxr today improved. new pafib --> conversion to sr: -new onset here. rate controlled w/o meds. 03/25 converted to sr-->remains in sinus -echo unremarkable -chadsvasc warrants ac. continue UFH gtt --> NOAC once able to take po
--- NOTE | 2018-04-01 11:23 | PN ---
Teaching Attending Note Name of Resident: Mukul White ATTENDING PHYSICIAN STATEMENT I saw and evaluated the patient. I reviewed the resident's note and discussed the case with the resident. I agree with the resident's findings and plan as documented. SUBJECTIVE: Patient has no new complains, no shortness of breath, no chest pain or shortness of breath. OBJECTIVE: Vital Signs Temperature 99.5 F 04/01/18 08:00 Pulse Rate 93 H 04/01/18 09:15 Respiratory Rate 24 04/01/18 08:00 Blood Pressure 125/64 04/01/18 08:00 O2 Sat by Pulse Oximetry (%) 100 04/01/18 09:15 CBCD WBC 14.8 K/mm3 (4.0-10.0) H 04/01/18 05:30 RBC 3.55 M/mm3 (4.00-5.60) L 04/01/18 05:30 Hgb 10.9 GM/dL (11.7-16.9) L 04/01/18 05:30 Hct 32.2 % (35.4-49) L 04/01/18 05:30 MCV 90.7 fl (80-96) 04/01/18 05:30 MCHC 33.8 g/dl (32.0-35.9) 04/01/18 05:30 RDW 14.9 % (11.9-15.9) 04/01/18 05:30 Plt Count 630 K/MM3 (134-434) H 04/01/18 05:30 MPV 10.3 fl (7.5-11.1) 04/01/18 05:30 CMP Sodium 136 mmol/L (136-145) 04/01/18 05:30 Potassium 4.5 mmol/L (3.5-5.1) 04/01/18 05:30 Chloride 108 mmol/L (98-107) H 04/01/18 05:30 Carbon Dioxide 21 mmol/L (21-32) 04/01/18 05:30 Anion Gap 7 (8-16) L 04/01/18 05:30 BUN 26 mg/dL (7-18) H 04/01/18 05:30 Creatinine 0.4 mg/dL (0.7-1.3) L 04/01/18 05:30 Creat Clearance w eGFR > 60 (>60) 04/01/18 05:30 Random Glucose 179 mg/dL (74-106) H D 04/01/18 05:30 Calcium 7.6 mg/dL (8.5-10.1) L 04/01/18 05:30 Total Bilirubin 1.4 mg/dL (0.2-1.0) H 04/01/18 05:30 AST 61 U/L (15-37) H D 04/01/18 05:30 ALT 77 U/L (12-78) 04/01/18 05:30 Alkaline Phosphatase 260 U/L (45-117) H D 04/01/18 05:30 Total Protein 5.7 g/dl (6.4-8.2) L 04/01/18 05:30 Albumin 1.3 g/dl (3.4-5.0) L 04/01/18 05:30 CARDIAC ENZYMES Creatine Kinase 327 IU/L (39-308) H 03/19/18 20:09 Troponin I 0.03 ng/ml (0.00-0.05) D 03/19/18 20:09 Current Medications Generic Name Dose Route Start Last Admin Trade Name Freq PRN Reason Stop Dose Admin Acetaminophen 650 mg 03/27/18 13:00 03/31/18 23:08 Tylenol Oral Solution - PO 650 mg Q6H PRN Administration FEVER Amino Acids 30 ml 03/24/18 13:00 04/01/18 10:24 Prosource No Carb Liquid Pkt PO 30 ml DAILY JUDY Administration Artificial Tears 1 drop 03/24/18 10:59 03/30/18 10:34 Artificial Tears OU 1 drop BID PRN Administration DRY EYES Heparin Sodium (Porcine) 1,000 unit 03/20/18 14:07 03/25/18 17:00 Heparin - IVPUSH 1,000 unit PRN PRN Administration Heparin Heparin Sodium (Porcine) 5,000 unit 03/20/18 14:07 03/31/18 07:56 Heparin - IVPUSH 5,000 unit PRN PRN Administration Heparin Meropenem 1 gm/ Dextrose 100 mls @ 200 mls/hr 03/19/18 18:00 04/01/18 10:18 IVPB 200 mls/hr Q8H-IV JUDY Administration HEPARIN SOD,PORK IN 0.45% NACL 25,000 units in 500 mls @ 20 mls/hr 03/20/18 14 :15 04/01/18 09:56 Heparin-1/2ns 25,000 Units/500 IVPB 1,300 units/hr TITR JUDY 26 mls/hr Titration Protocol 1,000 UNITS/HR Vancomycin HCl 1,000 mg/ 250 mls @ 166.667 mls/hr 03/29/18 04:00 Dextrose IVPB Q12H JUDY Protocol Insulin Aspart 1 vial 03/23/18 11:00 04/01/18 06:34 Novolog Vial Sliding Scale - SQ 2 units ACHS JUDY Administration Protocol Ondansetron HCl 4 mg 03/13/18 04:30 Zofran Injection IVPUSH Q6H PRN NAUSEA Pantoprazole Sodium 40 mg 03/13/18 10:00 04/01/18 10:24 Protonix Iv IVPUSH 40 mg DAILY JUDY Administration PE: per resident's note ASSESSMENT AND PLAN: Patient is an 82 y/o gentleman with h/o DJD, GERD, diverticulosis who presented with abd pain and was found to have SBO with bowel ischemia , and incarcerated hernia and developed acute resp failure and septic shock. # Acute hypoxic resp failure. due to severe sepsis and b/l PNA /ARDS. Lasix as needed # Septic shock. resolved off vanco sincw 03/29 . # Ischemic bowel and incarcerated inguinal hernia : s/p exploratory laparotomy and partial small bowel resection. # Possible acalculus cholecystitis : s/p cholecystostomy tube ,surgery on the case Dr. Nance. to determine plan for tube #New onset A flutter/A fib : now in sinus rhythm. Cont heparin gtt. will switch to po AC if can take po , # R IJ thrombus /DVT: on heparin gtt continue # S/P extubation. non verbal yet.ENT evaluated the patient and suggested on # ICU neuropathy. PT and monitor dispo : to be evaluated by [facility] for a transfer to LTAC . DVT Px: heparin
--- NOTE | 2018-04-01 11:55 | PN ---
Physical Exam: SUBJECTIVE: No acute events overnight. Pt more active today. Can hear some audible noises when pt phonates. Awaiting LTAC assessment. Pt and family seen by GI for PEG tube, however family wishes to think about it and requests Dr. Mahoney as he has seen the pt prior. OBJECTIVE: Vital Signs Period Temp Pulse Resp BP Sys/Ceballos Pulse Ox Last 24 Hr 99.2 F-100.2 F 84-103 24-32 111-131/54-67 96-100 GENERAL: NAD, alert to spontaneous stimuli, listens to commands; some phonation of voice subtley heard, able to squeeze hands weakly HEENT: KITTY, EOMI, NG in place, dry MM, swollen lips Neck: No central, site remains w/o erythema, no JVD LUNGS: Improved lung sounds with better aeration. On high flow O2 50L/min. 40% FiO2 HEART: RRR, S1, S2 without murmur ABDOMEN: Soft, nondistended, nontender, Midline incision C/D/I, C-tube draining brown fluid EXTREMITIES: 2+ DP pulses, warm, 1+ ankle edema SKIN: Warm, dry, no rash or lesions currently Laboratory Results - last 24 hr 03/31/18 03/31/18 03/31/18 12:52 13:50 18:07 WBC RBC Hgb Hct MCV MCH MCHC RDW Plt Count MPV PTT (Actin FS) 81.2 H D Sodium Potassium Chloride Carbon Dioxide Anion Gap BUN Creatinine Creat Clearance w eGFR POC Glucometer 258.50886 202.54722 Random Glucose Calcium Phosphorus Magnesium Total Bilirubin AST ALT Alkaline Phosphatase Total Protein Albumin 03/31/18 04/01/18 04/01/18 20:38 05:30 05:30 WBC 14.8 H RBC 3.55 L Hgb 10.9 L Hct 32.2 L MCV 90.7 MCH 30.6 MCHC 33.8 RDW 14.9 Plt Count 630 H MPV 10.3 PTT (Actin FS) Sodium 136 Potassium 4.5 Chloride 108 H Carbon Dioxide 21 Anion Gap 7 L BUN 26 H Creatinine 0.4 L Creat Clearance w eGFR > 60 POC Glucometer 158.03451 Random Glucose 179 H D Calcium 7.6 L Phosphorus 2.5 Magnesium 2.2 Total Bilirubin 1.4 H AST 61 H D ALT 77 Alkaline Phosphatase 260 H D Total Protein 5.7 L Albumin 1.3 L 04/01/18 08:50 WBC RBC Hgb Hct MCV MCH MCHC RDW Plt Count MPV PTT (Actin FS) 89.8 H Sodium Potassium Chloride Carbon Dioxide Anion Gap BUN Creatinine Creat Clearance w eGFR POC Glucometer Random Glucose Calcium Phosphorus Magnesium Total Bilirubin AST ALT Alkaline Phosphatase Total Protein Albumin Active Medications Generic Name Dose Route Start Last Admin Trade Name Freq PRN Reason Stop Dose Admin Acetaminophen 650 mg 03/27/18 13:00 03/31/18 23:08 Tylenol Oral Solution - PO 650 mg Q6H PRN Administration FEVER Amino Acids 30 ml 03/24/18 13:00 04/01/18 10:24 Prosource No Carb Liquid Pkt PO 30 ml DAILY JUDY Administration Artificial Tears 1 drop 03/24/18 10:59 03/30/18 10:34 Artificial Tears OU 1 drop BID PRN Administration DRY EYES Heparin Sodium (Porcine) 1,000 unit 03/20/18 14:07 03/25/18 17:00 Heparin - IVPUSH 1,000 unit PRN PRN Administration Heparin Heparin Sodium (Porcine) 5,000 unit 03/20/18 14:07 03/31/18 07:56 Heparin - IVPUSH 5,000 unit PRN PRN Administration Heparin Meropenem 1 gm/ Dextrose 100 mls @ 200 mls/hr 03/19/18 18:00 04/01/18 10:18 IVPB 200 mls/hr Q8H-IV JUDY Administration HEPARIN SOD,PORK IN 0.45% NACL 25,000 units in 500 mls @ 20 mls/hr 03/20/18 14 :15 04/01/18 09:56 Heparin-1/2ns 25,000 Units/500 IVPB 1,300 units/hr TITR JUDY 26 mls/hr Titration Protocol 1,000 UNITS/HR Vancomycin HCl 1,000 mg/ 250 mls @ 166.667 mls/hr 03/29/18 04:00 Dextrose IVPB Q12H JUDY Protocol Insulin Aspart 1 vial 03/23/18 11:00 04/01/18 06:34 Novolog Vial Sliding Scale - SQ 2 units ACHS JUDY Administration Protocol Ondansetron HCl 4 mg 03/13/18 04:30 Zofran Injection IVPUSH Q6H PRN NAUSEA Pantoprazole Sodium 40 mg 03/13/18 10:00 04/01/18 10:24 Protonix Iv IVPUSH 40 mg DAILY JUDY Administration ASSESSMENT/PLAN: 1) Acute hypoxic respiratory failure --Resolving, extubated; 6/ --Continue High flow O2 and maintain maintain SpO2 >90% --Aspiration precautions: HOB elevated 2) Septic shock 2/2 to bowel ischemia in addition to aspiration PNA --ID on board --Meropenem to continue 3) Toxic metabolic neuropathy --Continue PT --Awaiting evaluation for LTAC at [place] for intensive physical therapy --Will have to wait to engage in oral medications (can most likely switch to NOACs once able to swallow) --Family wishes to switch GI consult to Dr. Mahoney; seen by Dr. Rodriguez and they wish to wait to decide about PEG tube 4) Elevated LFTs --Stable --Discussed with Dr. Fox and will need to keep C-tube for long duration before pulling 5) Atrial flutter/fib --Cardiology consulted --Heparin gtt remains; monitor aPtt; see above regarding NOACs --Echo unremarkable FEN: Fluids: Avoid Electrolyte abnormalities: pseudohypocalcemia Nutrition: NGT feeds ongoing; rate 50 with prosource on board; increase from 1.5 protein to 2.0; discuss PEG? PPX: DVT - Heparin gtt on already GI - Protonix 40mg IVP daily Dispo: Continue ICU monitoring; awaiting LTAC decision Case discussed with Dr. Soni White, DO - IM PGY-1 Visit type - Emergency Visit Emergency Visit: No - New Patient This patient is new to me today: No - Critical Care Critical Care patient: Yes Total Critical Care Time (in minutes): 35 Critical Care Statement: The care of this patient involved high complexity decision making to prevent further life threatening deterioration of the patient 's condition and/or to evaluate & treat vital organ system(s) failure or risk of failure.
--- NOTE | 2018-04-01 12:05 | PN ---
Teaching Attending Note Name of Resident: Luke Drake ATTENDING PHYSICIAN STATEMENT I saw and evaluated the patient. I reviewed the resident's note and discussed the case with the resident. I agree with the resident's findings and plan as documented. SUBJECTIVE: Pt seen and examined in the ICU. Remains on HFOT with 50L, 40% FiO2. Voice stronger per at bedside. Moving fingers and toes. OBJECTIVE: Vital Signs Period Temp Pulse Resp BP Sys/Ceballos Pulse Ox Last 24 Hr 99.2 F-100.2 F 84-103 24-32 111-131/54-67 96-100 Intake & Output 03/29/18 03/30/18 03/31/18 04/01/18 23:59 23:59 23:59 23:59 Intake Total 2584 2348 2028 1156 Output Total 2776 2420 4225 750 Balance - 406 Weight 74.661 kg 72.688 kg 73.51 kg 69.91 kg Gen: mildly tachypneic at rest Heart: RRR Lung: decreased breath sounds at the bases Abd: soft, nontender Ext: trace edema CBC, BMP 04/01/18 05:30 04/01/18 05:30 Active Medications Acetaminophen (Tylenol Oral Solution -) 650 mg PO Q6H PRN PRN Reason: FEVER Last Admin: 03/31/18 23:08 Dose: 650 mg Amino Acids (Prosource No Carb Liquid Pkt) 30 ml PO DAILY JUDY Last Admin: 04/01/18 10:24 Dose: 30 ml Artificial Tears (Artificial Tears) 1 drop OU BID PRN PRN Reason: DRY EYES Last Admin: 03/30/18 10:34 Dose: 1 drop Heparin Sodium (Porcine) (Heparin -) 1,000 unit IVPUSH PRN PRN PRN Reason: Heparin Last Admin: 03/25/18 17:00 Dose: 1,000 unit Heparin Sodium (Porcine) (Heparin -) 5,000 unit IVPUSH PRN PRN PRN Reason: Heparin Last Admin: 03/31/18 07:56 Dose: 5,000 unit Meropenem 1 gm/ Dextrose 100 mls @ 200 mls/hr IVPB Q8H-IV JUDY Last Admin: 04/01/18 10:18 Dose: 200 mls/hr HEPARIN SOD,PORK IN 0.45% NACL (Heparin-1/2ns 25,000 Units/500) 25,000 units in 500 mls @ 20 mls/hr IVPB TITR [facility]; Protocol Last Titration: 04/01/18 09:56 Dose: 1,300 units/hr, 26 mls/hr Vancomycin HCl 1,000 mg/ (Dextrose) 250 mls @ 166.667 mls/hr IVPB Q12H [facility]; Protocol Insulin Aspart (Novolog Vial Sliding Scale -) 1 vial SQ ACHS [facility]; Protocol Last Admin: 04/01/18 06:34 Dose: 2 units Ondansetron HCl (Zofran Injection) 4 mg IVPUSH Q6H PRN PRN Reason: NAUSEA Pantoprazole Sodium (Protonix Iv) 40 mg IVPUSH DAILY [facility] Last Admin: 04/01/18 10:24 Dose: 40 mg ASSESSMENT AND PLAN: Acute Hypoxic Respiratory Failure Pneumonia - ?Aspiration ARDS Incarcerated Inguinal Hernia s/p ex-lap/segmental terminal ileum resection/primary anastamosis 03/13 r/o Acalculus Cholecystitis s/p percutaneous cholecystostomy Septic Shock resolving Acute Kidney Injury improving Lactic Acidosis resolved New onset Paroxysmal Atrial Fibrillation Diverticulosis BPH Critical Illness Polyneuropathy - antibiotics per ID - rate controlled - continue anticoagulation - monitor urine output, creatinine - taper FiO2, flow rate to keep SpO2 >90% - enteral feeds, will need G tube - DVT/GI prophylaxis - continue ICU monitoring critical care time spent in reviewing chart, evaluating patient and formulating plan 35 min
--- NOTE | 2018-04-01 12:51 | PN ---
GI Progress Note Subjective: GI NOte: The family has asked that I assume Jurgen's GI care as I have followed him for years. Dr Rodriguez's consultation with Dr Drake is appreciated. I have discussed the pulmonary situation with Dr. Kwong. Given pulmonary reservations of giving anesthesia for the endocopic PEG procedure, I have instead proposed the the G tube be placed by the interventional radiologist as there is already a NG tube in place to Mrs. Guido as Jurgen is not currently capable of the decisions. I reiterated the complications already discussed with her by Dr Rodriguez and answered her questions. - Objective Vital Signs: Vital Signs Temperature 99.5 F 04/01/18 08:00 Pulse Rate 93 H 04/01/18 09:15 Respiratory Rate 24 04/01/18 08:00 Blood Pressure 125/64 04/01/18 08:00 O2 Sat by Pulse Oximetry (%) 100 04/01/18 12:23 Constitutional: Other (Lethargia, not communicative) Respiratory: Yes: Rhonchi Gastrointestinal Inspection: Yes: Other (RUQ drain in place) ...Auscultate: Yes: Normoactive Bowel Sounds ...Palpate: Yes: Soft, Other (nontender) Labs: CBC, BMP 04/01/18 05:30 04/01/18 05:30 INR, PTT INR 1.22 (0.82-1.09) H 03/31/18 05:20 Problem List - Problems (1) Dysphagia Assessment/Plan: Unable to swallow given current mental state and other maladies including neuropathy. Would arrange G tube insertion with Dr Bran. Communicated to Dr White Code(s): R13.10 - DYSPHAGIA, UNSPECIFIED Qualifiers: Dysphagia type: unspecified Qualified Code(s): R13.10 - Dysphagia, unspecified
--- NOTE | 2018-04-01 13:09 | PN ---
Physical Exam: SUBJECTIVE: Patient seen and examined. More awake and alert. Able to move fingers and toes. Voice stronger today. Remains on HFNC 40% Fio2 Tmax 100.2 Last night. Now afebrile OBJECTIVE: Vital Signs Period Temp Pulse Resp BP Sys/Ceballos Pulse Ox Last 24 Hr 99.2 F-100.2 F 84-103 24-32 111-131/54-67 96-100 GENERAL: The patient is awake, alert. follows commands. tachypneic at rest EYES: PERRL, sclera anicteric, conjunctiva clear. No ptosis. ENT: NG Tube in place LUNGS: decreased breath sounds at the bases HEART: Regular rate and rhythm, S1, S2 without murmur, rub or gallop. ABDOMEN: Midline vertical surgical wound. Soft, nontender, nondistended, (+) bowel sounds. RUQ LEIF draining EXTREMITIES: 1+ pitting edema of LE bilaterally Laboratory Results - last 24 hr 03/31/18 03/31/18 03/31/18 12:52 13:50 18:07 WBC RBC Hgb Hct MCV MCH MCHC RDW Plt Count MPV PTT (Actin FS) 81.2 H D Sodium Potassium Chloride Carbon Dioxide Anion Gap BUN Creatinine Creat Clearance w eGFR POC Glucometer 258.37134 202.72833 Random Glucose Calcium Phosphorus Magnesium Total Bilirubin AST ALT Alkaline Phosphatase Total Protein Albumin 03/31/18 04/01/18 04/01/18 20:38 05:30 05:30 WBC 14.8 H RBC 3.55 L Hgb 10.9 L Hct 32.2 L MCV 90.7 MCH 30.6 MCHC 33.8 RDW 14.9 Plt Count 630 H MPV 10.3 PTT (Actin FS) Sodium 136 Potassium 4.5 Chloride 108 H Carbon Dioxide 21 Anion Gap 7 L BUN 26 H Creatinine 0.4 L Creat Clearance w eGFR > 60 POC Glucometer 158.44161 Random Glucose 179 H D Calcium 7.6 L Phosphorus 2.5 Magnesium 2.2 Total Bilirubin 1.4 H AST 61 H D ALT 77 Alkaline Phosphatase 260 H D Total Protein 5.7 L Albumin 1.3 L 04/01/18 08:50 WBC RBC Hgb Hct MCV MCH MCHC RDW Plt Count MPV PTT (Actin FS) 89.8 H Sodium Potassium Chloride Carbon Dioxide Anion Gap BUN Creatinine Creat Clearance w eGFR POC Glucometer Random Glucose Calcium Phosphorus Magnesium Total Bilirubin AST ALT Alkaline Phosphatase Total Protein Albumin Active Medications Generic Name Dose Route Start Last Admin Trade Name Freq PRN Reason Stop Dose Admin Acetaminophen 650 mg 03/27/18 13:00 03/31/18 23:08 Tylenol Oral Solution - PO 650 mg Q6H PRN Administration FEVER Amino Acids 30 ml 03/24/18 13:00 04/01/18 10:24 Prosource No Carb Liquid Pkt PO 30 ml DAILY JUDY Administration Artificial Tears 1 drop 03/24/18 10:59 03/30/18 10:34 Artificial Tears OU 1 drop BID PRN Administration DRY EYES Heparin Sodium (Porcine) 1,000 unit 03/20/18 14:07 03/25/18 17:00 Heparin - IVPUSH 1,000 unit PRN PRN Administration Heparin Heparin Sodium (Porcine) 5,000 unit 03/20/18 14:07 03/31/18 07:56 Heparin - IVPUSH 5,000 unit PRN PRN Administration Heparin Meropenem 1 gm/ Dextrose 100 mls @ 200 mls/hr 03/19/18 18:00 04/01/18 10:18 IVPB 200 mls/hr Q8H-IV JUDY Administration HEPARIN SOD,PORK IN 0.45% NACL 25,000 units in 500 mls @ 20 mls/hr 03/20/18 14 :15 04/01/18 09:56 Heparin-1/2ns 25,000 Units/500 IVPB 1,300 units/hr TITR JUDY 26 mls/hr Titration Protocol 1,000 UNITS/HR Vancomycin HCl 1,000 mg/ 250 mls @ 166.667 mls/hr 03/29/18 04:00 Dextrose IVPB Q12H [facility]Y Protocol Insulin Aspart 1 vial 03/23/18 11:00 04/01/18 06:34 Novolog Vial Sliding Scale - SQ 2 units ACHS JUDY Administration Protocol Ondansetron HCl 4 mg 03/13/18 04:30 Zofran Injection IVPUSH Q6H PRN NAUSEA Pantoprazole Sodium 40 mg 03/13/18 10:00 04/01/18 10:24 Protonix Iv IVPUSH 40 mg DAILY JUDY Administration ASSESSMENT/PLAN: Patient is an 82 year old male who presented with abdominal pain and was found to have SBO with bowel ischemia from incarcerated hernia and developed acute respiratory failure from septic shock. Patient admitted for further monitoring and management. Pulm: #Acute Hypoxic Respiratory Failure -Likely secondary to Septic shock from Bowel ischemia and Aspiration PNA -Patient s/p extubation (03/28) and saturating well on high flow volume 40%. Patient remains non-verbal possibly due to vocal cord paralysis/Laryngeal edema/ scar or granluation tissue. -Maintain SpO2 >90% -Incentive spirometry ID: #Septic Shock secondary to SBO and bowel Ischemia - Afebrile -Patient remains off pressors -Continue Meropenem 1gm Q8H (DAY #13) and vancomycin 1gm daily. -Will follow up with ID for deescalation of Abx GI: #Ischemic bowel and incarcerated inguinal Hernia -s/p ex lap and partial bowel resection (03/13) -Stables removed today by Surgery -C-TUBE in place and continues to drain bile -GI consulted -Dr. Mahoney discussed IR guided G-tube placement with family. Family in agreement. Cardio: #New onset Atrial Flutter/Atrial Fibrillation -Currently rate controlled and in normal sinus rhythm -Will continue Heparin drip with future plans to bridge with oral AC Vascular: #Right IJ thrombus -Patient currently on Heparin Drip Neuro: #Critical Illness Neuropathy -Continue physical therapy F/E/N -no fluids -monitor lytes -NGT feeds Prophylaxis -Heparin drip for DVT -Protonix 40mg IVP daily for GI Dispo -Full code -Awaiting elodia approval. Visit type - Emergency Visit Emergency Visit: Yes ED Registration Date: 03/12/18 Care time: The patient presented to the Emergency Department on the above date and was hospitalized for further evaluation of their emergent condition. - New Patient This patient is new to me today: No - Critical Care Critical Care patient: Yes Total Critical Care Time (in minutes): 40 Critical Care Statement: The care of this patient involved high complexity decision making to prevent further life threatening deterioration of the patient 's condition and/or to evaluate & treat vital organ system(s) failure or risk of failure.
--- NOTE | 2018-04-01 15:07 | PN ---
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 Headshake response for most questions. Not mouthing words of vocalizing for me. Unable to close lips upon command. Swallow not functional at this time. Guarded prognosis. Reflexive cough noted Selected Entries 03/31/18 03/31/18 03/31/18 02:00 06:00 10:00 Temperature 100 F H 100 F H 99.5 F 03/31/18 03/31/18 03/31/18 12:00 14:00 16:00 Temperature 99.4 F 99.7 F H 99.7 F H 03/31/18 04/01/18 04/01/18 22:00 02:00 04:00 Temperature 100.2 F H 99.4 F 99.2 F 04/01/18 04/01/18 06:00 08:00 Temperature 99.5 F 99.5 F Laboratory Tests 03/29/18 03/30/18 03/31/18 05:00 06:00 05:20 WBC 12.5 H 11.8 H 12.6 H 04/01/18 05:30 WBC 14.8 H Decision pending GT via IR/ LTACH
[2018-04-01] MEDS: HEPARIN SOD,PORK IN 0.45% NACL 25,000 UNITS/500 ML INFUS.BAG IVPB SCH (15:20)
--- NOTE | 2018-04-01 17:05 | PN ---
Progress Note, Physician History of Present Illness: continues to improve has been relatively afebrile wbc has increased according to family doing well - Current Medication List Current Medications: Active Medications Acetaminophen (Tylenol Oral Solution -) 650 mg PO Q6H PRN PRN Reason: FEVER Last Admin: 03/31/18 23:08 Dose: 650 mg Amino Acids (Prosource No Carb Liquid Pkt) 30 ml PO DAILY JUDY Last Admin: 04/01/18 10:24 Dose: 30 ml Artificial Tears (Artificial Tears) 1 drop OU BID PRN PRN Reason: DRY EYES Last Admin: 03/30/18 10:34 Dose: 1 drop Heparin Sodium (Porcine) (Heparin -) 1,000 unit IVPUSH PRN PRN PRN Reason: Heparin Last Admin: 03/25/18 17:00 Dose: 1,000 unit Heparin Sodium (Porcine) (Heparin -) 5,000 unit IVPUSH PRN PRN PRN Reason: Heparin Last Admin: 03/31/18 07:56 Dose: 5,000 unit Meropenem 1 gm/ Dextrose 100 mls @ 200 mls/hr IVPB Q8H-IV [facility] Last Admin: 04/01/18 10:18 Dose: 200 mls/hr HEPARIN SOD,PORK IN 0.45% NACL (Heparin-1/2ns 25,000 Units/500) 25,000 units in 500 mls @ 20 mls/hr IVPB TITR [facility]; Protocol Last Admin: 04/01/18 15:20 Dose: 1,300 units/hr, 26 mls/hr Vancomycin HCl 1,000 mg/ (Dextrose) 250 mls @ 166.667 mls/hr IVPB Q12H [facility]; Protocol Insulin Aspart (Novolog Vial Sliding Scale -) 1 vial SQ ACHS [facility]; Protocol Last Admin: 04/01/18 13:49 Dose: 4 units Ondansetron HCl (Zofran Injection) 4 mg IVPUSH Q6H PRN PRN Reason: NAUSEA Pantoprazole Sodium (Protonix Iv) 40 mg IVPUSH DAILY JUDY Last Admin: 04/01/18 10:24 Dose: 40 mg - Objective Vital Signs: Vital Signs Temperature 99.6 F 04/01/18 16:00 Pulse Rate 82 04/01/18 16:00 Respiratory Rate 22 04/01/18 16:00 Blood Pressure 117/60 04/01/18 16:00 O2 Sat by Pulse Oximetry (%) 98 04/01/18 16:06 Constitutional: Yes: No Distress, Calm Cardiovascular: Yes: Regular Rate and Rhythm Respiratory: Yes: On Nasal O2, Poor Air Entry, Rhonchi Gastrointestinal: Yes: Normal Bowel Sounds, Soft, Other (ng in place) Musculoskeletal: Yes: WNL Extremities: Yes: WNL Neurological: Yes: Alert Psychiatric: Yes: Alert Labs: CBC, BMP 04/01/18 05:30 04/01/18 05:30 INR, PTT INR 1.22 (0.82-1.09) H 03/31/18 05:20 Assessment/Plan Problem List - Problems (1) Strangulated inguinal hernia Pulmonary evaluation - weaning today? GI Evaluation - Tbili 3.5, 3.6 BP goal MAP 65-70, has a stapled small bowel anastomosis avoid lwo flow states will follow Code(s): K40.30 - UNIL INGUINAL HERNIA, W OBST, W/O GANGR, NOT SPCF RECUR (2) Incarcerated left inguinal hernia Code(s): K40.30 - UNIL INGUINAL HERNIA, W OBST, W/O GANGR, NOT SPCF RECUR (3) BPH (benign prostatic hyperplasia) Code(s): N40.0 - BENIGN PROSTATIC HYPERPLASIA WITHOUT LOWER URINRY TRACT SYMP Qualifiers: Lower urinary tract symptom presence: symptoms present Lower urinary tract symptom detail: urinary frequency Qualified Code(s): N40.1 - Benign prostatic hyperplasia with lower urinary tract symptoms; R35.0 - Frequency of micturition ; R35.0 - Frequency of micturition (4) DDD (degenerative disc disease), cervical Code(s): M50.30 - OTHER CERVICAL DISC DEGENERATION, UNSP CERVICAL REGION (5) SBO (small bowel obstruction) Code(s): K56.609 - UNSP INTESTNL OBST, UNSP TO PARTIAL VERSUS COMPLETE OBST (6) Aspiration pneumonia of both lower lobes due to gastric secretions Code(s): J69.0 - PNEUMONITIS DUE TO INHALATION OF FOOD AND VOMIT r/o acalculus choley plan continue abx jackson top vanco and monitor monitor wbc if wbc increases will ahve to reinstitute abx close watch chest pt rest as per icu xray labs noted cc 40 min
[2018-04-01] MEDS ORDERED: HEMOQUE TEST 1 EACH EACH ONE (18:08)
[2018-04-01] MEDS: HEPARIN NA (PORCINE) 5,000 UNITS/ML 1ML VIAL IVPUSH PRN (19:20)
[2018-04-02] MEDS: MEROPENEM 1 GM in DEXTROSE 5%-WATER 100 ML IVPB SCH ×3 (03:00→17:22)
[2018-04-02] MEDS ORDERED: PT OWN MED DRAWER 7, Y5N ONE ×3 (03:32→16:55)
[2018-04-02] MEDS: ACETAMINOPHEN 650 MG/20.3 ML ORAL SOLUTION (CUPS) PO PRN (04:25)
[2018-04-02 06:26] LABS: HEMATOCRIT 31.8 % (35.4-49); HEMOGLOBIN 10.6 GM/dL (11.7-16.9); MCH 30.5 pg (25.7-33.7); MCHC 33.3 g/dl (32.0-35.9); MEAN CELL VOLUME 91.6 fl (80-96); MEAN PLT VOLUME 10.1 fl (7.5-11.1); PLATELET COUNT 572 K/MM3 (134-434); RBC 3.47 M/mm3 (4.00-5.60); RDW 15.1 % (11.9-15.9); WHITE BLOOD COUNT 12.6 K/mm3 (4.0-10.0)
[2018-04-02] MEDS: INSULIN SLIDING SCALE (NOVOLOG) 1 VIAL SQ SCH ×4 (06:40→21:25)
[2018-04-02 06:50] LABS: CHLORIDE 105 mmol/L (98-107); SODIUM 136 mmol/L (136-145)
[2018-04-02 07:01] LABS: ALBUMIN 1.3 g/dl (3.4-5.0); ALK PHOS 231 U/L (45-117); ANION GAP 10 (8-16); BILIRUBIN,TOTAL 1.2 mg/dL (0.2-1.0); BLOOD UREA NITROGEN 26 mg/dL (7-18); CALCIUM 7.9 mg/dL (8.5-10.1); CO2 21 mmol/L (21-32); CREATININE 0.5 mg/dL (0.7-1.3); GLUCOSE,RANDOM 212 mg/dL (74-106); PHOSPHOROUS 2.4 mg/dL (2.5-4.9); SGPT/ALT 77 U/L (12-78); TOT PROT 5.6 g/dl (6.4-8.2)
[2018-04-02 07:40] LABS: MAGNESIUM 2.4 mg/dL (1.8-2.4); POTASSIUM 4.8 mmol/L (3.5-5.1); SGOT/AST 62 U/L (15-37)
[2018-04-02] MEDS: PANTOPRAZOLE SODIUM 40 MG VIAL IVPUSH SCH (10:16)
--- NOTE | 2018-04-02 11:24 | PN ---
Progress Note (short form) - Note Progress Note: Chief Complaint: septic shock History of Present Illness: awake, but minimally interactive. not communicating. no overnight events. Current Medications Acetaminophen (Tylenol Oral Solution -) 650 mg PO Q6H PRN PRN Reason: FEVER Last Admin: 04/02/18 04:25 Dose: 650 mg Amino Acids (Prosource No Carb Liquid Pkt) 30 ml PO DAILY JUDY Last Admin: 04/01/18 10:24 Dose: 30 ml Artificial Tears (Artificial Tears) 1 drop OU BID PRN PRN Reason: DRY EYES Last Admin: 03/30/18 10:34 Dose: 1 drop Heparin Sodium (Porcine) (Heparin -) 1,000 unit IVPUSH PRN PRN PRN Reason: Heparin Last Admin: 04/01/18 19:20 Dose: 1,000 unit Heparin Sodium (Porcine) (Heparin -) 5,000 unit IVPUSH PRN PRN PRN Reason: Heparin Last Admin: 03/31/18 07:56 Dose: 5,000 unit Meropenem 1 gm/ Dextrose 100 mls @ 200 mls/hr IVPB Q8H-IV [facility] Last Admin: 04/02/18 10:15 Dose: 200 mls/hr HEPARIN SOD,PORK IN 0.45% NACL (Heparin-1/2ns 25,000 Units/500) 25,000 units in 500 mls @ 20 mls/hr IVPB TITR [facility]; Protocol Last Titration: 04/01/18 19:20 Dose: 1,400 units/hr, 28 mls/hr Insulin Aspart (Novolog Vial Sliding Scale -) 1 vial SQ ACHS [facility]; Protocol Last Admin: 04/02/18 06:40 Dose: 4 units Ondansetron HCl (Zofran Injection) 4 mg IVPUSH Q6H PRN PRN Reason: NAUSEA Pantoprazole Sodium (Protonix Iv) 40 mg IVPUSH DAILY JUDY Last Admin: 04/02/18 10:16 Dose: 40 mg Vital Signs Period Temp Pulse Resp BP Sys/Ceballos Pulse Ox Last 24 Hr 99.3 F-100.6 F 82-108 18-30 86-129/47-69 96-100 nad no jvd trace bibasilar rales, poor eff rrr nl s1s2 no mrg + bs soft nt nd trace dependent edema bl, no c/c no jaundice diaphoresis lethargic Labs: CBC, BMP 04/02/18 05:30 04/02/18 05:30 tele: SR ecg: sr, nl intervals, no ischemic changes head ct: no acute pathology echo 02/2018: nl lv/rv, mild mr/tr/ar cxr: chf, slightly improved cxr 03/25: no sig change Assessment/Plan a/p: 82 m hx gerd, bph, here with abd pain/sepsis - found to have sbo, now s/p OR hospital course c/b new afib. septic shock/sbo/cholecystitis/asp pna: -s/p ex-lap/segmental terminal ileum resection/primary anastamosis 03/13 -Suspected Acalculus Cholecystitis s/p percutaneous cholecystostomy 03/20 -asp pna -now extubated, off pressors. bp stable. cont abx per ID -receiving IV lasix prn per CXR appearing congested. cxr today improved. new pafib --> conversion to sr: -new onset here. rate controlled w/o meds. 03/25 converted to sr-->remains in sinus -echo unremarkable -chadsvasc warrants ac. continue UFH gtt --> NOAC once able to take po
--- NOTE | 2018-04-02 11:27 | PN ---
Teaching Attending Note Name of Resident: Luke Drake ATTENDING PHYSICIAN STATEMENT I saw and evaluated the patient. I reviewed the resident's note and discussed the case with the resident. I agree with the resident's findings and plan as documented. SUBJECTIVE: I saw and evaluated the patient. I reviewed the resident's note and discussed the case with the resident. I agree with the resident's findings and plan as documented. SUBJECTIVE: Patient seen and examined in the ICU. Remains extubated, on HFNC O2 (50 liters / 40% FiO2). Awake and interactive, voice is still very weak. No pressors. Intake & Output 03/30/18 03/31/18 04/01/18 04/02/18 23:59 23:59 23:59 23:59 Intake Total 2348 2028 2268 442 Output Total 2420 4225 2310 1200 Balance -72 -2197 -42 -758 Weight 160 lb 4 oz 162 lb 1 oz 154 lb 2 oz 154 lb 5.177 oz Last Vital Signs Temp Pulse Resp BP Pulse Ox 99.3 F 89 24 129/65 100 04/02/18 06:00 04/02/18 09:03 04/02/18 06:00 04/02/18 06:00 04/02/18 09:03 Active Medications Acetaminophen (Tylenol Oral Solution -) 650 mg PO Q6H PRN PRN Reason: FEVER Last Admin: 04/02/18 04:25 Dose: 650 mg Amino Acids (Prosource No Carb Liquid Pkt) 30 ml PO DAILY JUDY Last Admin: 04/01/18 10:24 Dose: 30 ml Artificial Tears (Artificial Tears) 1 drop OU BID PRN PRN Reason: DRY EYES Last Admin: 03/30/18 10:34 Dose: 1 drop Heparin Sodium (Porcine) (Heparin -) 1,000 unit IVPUSH PRN PRN PRN Reason: Heparin Last Admin: 04/01/18 19:20 Dose: 1,000 unit Heparin Sodium (Porcine) (Heparin -) 5,000 unit IVPUSH PRN PRN PRN Reason: Heparin Last Admin: 03/31/18 07:56 Dose: 5,000 unit Meropenem 1 gm/ Dextrose 100 mls @ 200 mls/hr IVPB Q8H-IV JUDY Last Admin: 04/02/18 10:15 Dose: 200 mls/hr HEPARIN SOD,PORK IN 0.45% NACL (Heparin-1/2ns 25,000 Units/500) 25,000 units in 500 mls @ 20 mls/hr IVPB TITR [facility]; Protocol Last Titration: 04/01/18 19:20 Dose: 1,400 units/hr, 28 mls/hr Insulin Aspart (Novolog Vial Sliding Scale -) 1 vial SQ ACHS [facility]; Protocol Last Admin: 04/02/18 06:40 Dose: 4 units Ondansetron HCl (Zofran Injection) 4 mg IVPUSH Q6H PRN PRN Reason: NAUSEA Pantoprazole Sodium (Protonix Iv) 40 mg IVPUSH DAILY [facility] Last Admin: 04/02/18 10:16 Dose: 40 mg Gen: Awake and interactive in HFNC O2 Heart: RRR Lung: scattered rhonchi Abd: soft, nontender, (+) BS Ext: Less edema Laboratory Results - last 24 hr 04/01/18 04/01/18 04/01/18 04:56 13:41 16:00 WBC RBC Hgb Hct MCV MCH MCHC RDW Plt Count MPV PTT (Actin FS) 48.2 H D Sodium Potassium Chloride Carbon Dioxide Anion Gap BUN Creatinine Creat Clearance w eGFR POC Glucometer 181.93556 202.34133 Random Glucose Calcium Phosphorus Magnesium Total Bilirubin AST ALT Alkaline Phosphatase Total Protein Albumin 04/01/18 04/01/18 04/02/18 18:12 21:44 01:00 WBC RBC Hgb Hct MCV MCH MCHC RDW Plt Count MPV PTT (Actin FS) 89.4 H D Sodium Potassium Chloride Carbon Dioxide Anion Gap BUN Creatinine Creat Clearance w eGFR POC Glucometer 234.75187 189.71111 Random Glucose Calcium Phosphorus Magnesium Total Bilirubin AST ALT Alkaline Phosphatase Total Protein Albumin 04/02/18 04/02/18 04/02/18 05:30 05:30 06:03 WBC 12.6 H RBC 3.47 L Hgb 10.6 L Hct 31.8 L MCV 91.6 MCH 30.5 MCHC 33.3 RDW 15.1 Plt Count 572 H MPV 10.1 PTT (Actin FS) Sodium 136 Potassium 4.8 Chloride 105 Carbon Dioxide 21 Anion Gap 10 BUN 26 H Creatinine 0.5 L D Creat Clearance w eGFR > 60 POC Glucometer 245.06025 Random Glucose 212 H Calcium 7.9 L Phosphorus 2.4 L Magnesium 2.4 Total Bilirubin 1.2 H AST 62 H ALT 77 Alkaline Phosphatase 231 H Total Protein 5.6 L Albumin 1.3 L ASSESSMENT AND PLAN: CIP Acute Hypoxic Respiratory Failure Aspiration Pneumonia ARDS resolving Incarcerated Inguinal Hernia s/p ex-lap/segmental terminal ileum resection/primary anastamosis 03/13 Suspected Acalculus Cholecystitis s/p percutaneous cholecystostomy Septic Shock resolving Acute Kidney Injury improving Lactic Acidosis resolved New onset Paroxysmal Atrial Fibrillation Diverticulosis BPH - Pulmonary toilet / Chest PT - Maintain on HFNC O2 - antibiotics per ID - continue anticoagulation - Daily assessment for need for lasix: hold today - monitor urine output, creatinine - Follow CXR - enteral feeds : Will need PEG - DVT/GI prophylaxis - Low threshold for re-intubation - LTAC evaluation - continue ICU monitoring Dr Moreno Critical care time spent in reviewing chart, evaluating patient and formulating plan 35 min
--- NOTE | 2018-04-02 11:35 | PN ---
Progress Note, Physician Chief Complaint: SBO History of Present Illness: 82 yo male PMH BPH, degernerative disc disease (cervical), diverticulosis, hemorrhoids presented to the ED with abdominal pain and vomiting for on day. He reports that he was weight training yesterday and developed some groin pain. 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 gradually more responsive, intermittent clinical improvement. - Current Medication List Current Medications: Active Medications Acetaminophen (Tylenol Oral Solution -) 650 mg PO Q6H PRN PRN Reason: FEVER Last Admin: 04/02/18 04:25 Dose: 650 mg Amino Acids (Prosource No Carb Liquid Pkt) 30 ml PO DAILY JUDY Last Admin: 04/01/18 10:24 Dose: 30 ml Artificial Tears (Artificial Tears) 1 drop OU BID PRN PRN Reason: DRY EYES Last Admin: 03/30/18 10:34 Dose: 1 drop Heparin Sodium (Porcine) (Heparin -) 1,000 unit IVPUSH PRN PRN PRN Reason: Heparin Last Admin: 04/01/18 19:20 Dose: 1,000 unit Heparin Sodium (Porcine) (Heparin -) 5,000 unit IVPUSH PRN PRN PRN Reason: Heparin Last Admin: 03/31/18 07:56 Dose: 5,000 unit Meropenem 1 gm/ Dextrose 100 mls @ 200 mls/hr IVPB Q8H-IV JUDY Last Admin: 04/02/18 10:15 Dose: 200 mls/hr HEPARIN SOD,PORK IN 0.45% NACL (Heparin-1/2ns 25,000 Units/500) 25,000 units in 500 mls @ 20 mls/hr IVPB TITR JUDY; Protocol Last Titration: 04/01/18 19:20 Dose: 1,400 units/hr, 28 mls/hr Insulin Aspart (Novolog Vial Sliding Scale -) 1 vial SQ ACHS [facility]; Protocol Last Admin: 04/02/18 06:40 Dose: 4 units Ondansetron HCl (Zofran Injection) 4 mg IVPUSH Q6H PRN PRN Reason: NAUSEA Pantoprazole Sodium (Protonix Iv) 40 mg IVPUSH DAILY JUDY Last Admin: 04/02/18 10:16 Dose: 40 mg - Objective Vital Signs: Vital Signs Temperature 99.3 F 04/02/18 06:00 Pulse Rate 89 04/02/18 09:03 Respiratory Rate 24 04/02/18 06:00 Blood Pressure 129/65 04/02/18 06:00 O2 Sat by Pulse Oximetry (%) 100 04/02/18 09:03 Vital Signs Period Temp Pulse Resp BP Sys/Ceballos Pulse Ox Last 24 Hr 99.3 F-100.6 F 82-108 18-30 86-129/47-69 96-100 Intake & Output 04/01/18 04/02/18 04/02/18 23:59 07:59 15:59 Intake Total 1112 442 Output Total 1500 1200 Balance -388 -758 Weight 154 lb 5.177 oz Intake: IV 312 295 HEPARIN-1/2NS 25,000 312 295 UNITS/500 25,000 units In 500 ml @ 1,000 UNITS/HR 20 mls/hr IVPB TITR JUDY Rx#:[id number] IVPB 200 147 Tube Feeding 500 Tube Irrigant 100 Output: Drainage 100 Right Upper Abdomen 100 Urine 1500 1100 Scott 1500 1100 Other: Voiding Method Indwelling Catheter Bowel Movement No Weight Measurement Method Built in [facility] Constitutional: Yes: Well Nourished, No Distress, Calm Eyes: Yes: Conjunctiva Clear, EOM Intact HENT: Yes: Atraumatic, Normocephalic Neck: Yes: Supple, Trachea Midline Cardiovascular: Yes: Regular Rate and Rhythm, S2, S3 Respiratory: Yes: Regular, CTA Bilaterally, On Nasal O2 Gastrointestinal: Yes: Normal Bowel Sounds, Soft, Other (RUQ IR drain) ...Rectal Exam: Yes: Deferred Genitourinary: No: CVA Tenderness - Left, CVA Tenderness - Right Extremities: No: Cool, Cyanosis Edema: Yes Edema: LUE: Trace, RUE: Trace, LLE: Trace, RLE: Trace Peripheral Pulses WNL: Yes Peripheral Pulses: Left Radial: 2+, Right Radial: 2+, Left Doralis Pedis: 2+, Right Dorsalis Pedis: 2+ Wound/Incision: Yes: Clean/Dry, Well Approximated, Albino Removed. No: Draining, Reddened Neurological: Yes: Alert, Oriented Psychiatric: Yes: Alert, Oriented Labs: CBC, BMP 04/02/18 05:30 04/02/18 05:30 INR, PTT INR 1.22 (0.82-1.09) H 03/31/18 05:20 Problem List - Problems (1) Strangulated inguinal hernia Assessment/Plan: 82yo male MMP relatively healthy with SBO abdominal pain non reducible LIH, unclear transition point and no clear bowel ischemia identified. Bibasilar pulmonary consolidation and hoarsness may be a sequela of an aspiration. POD#19 s/p Exploratory Laparotomy, segmental ressection of SB and primary stapled anastomosis for strangulated RIH. low grade fevers persists. Patient has soft bowel movements. Extubated on high flow NC. S/p percutaneous cholecystostomy. 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 Time spent reviewing chart, examining patient, talking with providers and/or family and documentation is 35 minutes Code(s): K40.30 - UNIL INGUINAL HERNIA, W OBST, W/O GANGR, NOT SPCF RECUR (2) Incarcerated left inguinal hernia Code(s): K40.30 - UNIL INGUINAL HERNIA, W OBST, W/O GANGR, NOT SPCF RECUR (3) BPH (benign prostatic hyperplasia) Code(s): N40.0 - BENIGN PROSTATIC HYPERPLASIA WITHOUT LOWER URINRY TRACT SYMP Qualifiers: Lower urinary tract symptom presence: symptoms present Lower urinary tract symptom detail: urinary frequency Qualified Code(s): N40.1 - Benign prostatic hyperplasia with lower urinary tract symptoms; R35.0 - Frequency of micturition ; R35.0 - Frequency of micturition (4) DDD (degenerative disc disease), cervical Code(s): M50.30 - OTHER CERVICAL DISC DEGENERATION, UNSP CERVICAL REGION (5) SBO (small bowel obstruction) Code(s): K56.609 - UNSP INTESTNL OBST, UNSP TO PARTIAL VERSUS COMPLETE OBST (6) Aspiration pneumonia of both lower lobes due to gastric secretions Code(s): J69.0 - PNEUMONITIS DUE TO INHALATION OF FOOD AND VOMIT
--- NOTE | 2018-04-02 11:55 | PN ---
Physical Exam: SUBJECTIVE: Patient seen and examined. No acute events overnight. Awake, interactive. Still weak voice. HFNC 40% FIO2 Afebrile OBJECTIVE: Vital Signs Period Temp Pulse Resp BP Sys/Ceballos Pulse Ox Last 24 Hr 99.3 F-100.6 F 82-108 18-30 86-129/47-69 96-100 GENERAL: The patient is awake, alert. follows commands. EYES: PERRL, sclera anicteric, conjunctiva clear. No ptosis. ENT: NG Tube in place LUNGS: decreased breath sounds at the bases HEART: Regular rate and rhythm, S1, S2 without murmur, rub or gallop. ABDOMEN: Midline vertical surgical wound. Soft, nontender, nondistended, (+) bowel sounds. RUQ LEIF draining EXTREMITIES: 1+ pitting edema of LE bilaterally Laboratory Results - last 24 hr 04/01/18 04/01/18 04/01/18 04:56 13:41 16:00 WBC RBC Hgb Hct MCV MCH MCHC RDW Plt Count MPV PTT (Actin FS) 48.2 H D Sodium Potassium Chloride Carbon Dioxide Anion Gap BUN Creatinine Creat Clearance w eGFR POC Glucometer 181.93584 202.58517 Random Glucose Calcium Phosphorus Magnesium Total Bilirubin AST ALT Alkaline Phosphatase Total Protein Albumin 04/01/18 04/01/18 04/02/18 18:12 21:44 01:00 WBC RBC Hgb Hct MCV MCH MCHC RDW Plt Count MPV PTT (Actin FS) 89.4 H D Sodium Potassium Chloride Carbon Dioxide Anion Gap BUN Creatinine Creat Clearance w eGFR POC Glucometer 234.58969 189.94218 Random Glucose Calcium Phosphorus Magnesium Total Bilirubin AST ALT Alkaline Phosphatase Total Protein Albumin 04/02/18 04/02/18 04/02/18 05:30 05:30 06:03 WBC 12.6 H RBC 3.47 L Hgb 10.6 L Hct 31.8 L MCV 91.6 MCH 30.5 MCHC 33.3 RDW 15.1 Plt Count 572 H MPV 10.1 PTT (Actin FS) Sodium 136 Potassium 4.8 Chloride 105 Carbon Dioxide 21 Anion Gap 10 BUN 26 H Creatinine 0.5 L D Creat Clearance w eGFR > 60 POC Glucometer [phone] Random Glucose 212 H Calcium 7.9 L Phosphorus 2.4 L Magnesium 2.4 Total Bilirubin 1.2 H AST 62 H ALT 77 Alkaline Phosphatase 231 H Total Protein 5.6 L Albumin 1.3 L Active Medications Generic Name Dose Route Start Last Admin Trade Name Freq PRN Reason Stop Dose Admin Acetaminophen 650 mg 03/27/18 13:00 04/02/18 04:25 Tylenol Oral Solution - PO 650 mg Q6H PRN Administration FEVER Amino Acids 30 ml 03/24/18 13:00 04/01/18 10:24 Prosource No Carb Liquid Pkt PO 30 ml DAILY JUDY Administration Artificial Tears 1 drop 03/24/18 10:59 03/30/18 10:34 Artificial Tears OU 1 drop BID PRN Administration DRY EYES Heparin Sodium (Porcine) 1,000 unit 03/20/18 14:07 04/01/18 19:20 Heparin - IVPUSH 1,000 unit PRN PRN Administration Heparin Heparin Sodium (Porcine) 5,000 unit 03/20/18 14:07 03/31/18 07:56 Heparin - IVPUSH 5,000 unit PRN PRN Administration Heparin Meropenem 1 gm/ Dextrose 100 mls @ 200 mls/hr 03/19/18 18:00 04/02/18 10:15 IVPB 200 mls/hr Q8H-IV JUDY Administration HEPARIN SOD,PORK IN 0.45% NACL 25,000 units in 500 mls @ 20 mls/hr 03/20/18 14 :15 04/01/18 19:20 Heparin-1/2ns 25,000 Units/500 IVPB 1,400 units/hr TITR JUDY 28 mls/hr Titration Protocol 1,000 UNITS/HR Insulin Aspart 1 vial 03/23/18 11:00 04/02/18 06:40 Novolog Vial Sliding Scale - SQ 4 units ACHS JUDY Administration Protocol Ondansetron HCl 4 mg 03/13/18 04:30 Zofran Injection IVPUSH Q6H PRN NAUSEA Pantoprazole Sodium 40 mg 03/13/18 10:00 04/02/18 10:16 Protonix Iv IVPUSH 40 mg DAILY JUDY Administration ASSESSMENT/PLAN: Patient is an 82 year old male who presented with abdominal pain and was found to have SBO with bowel ischemia from incarcerated hernia and developed acute respiratory failure from septic shock. Patient admitted for further monitoring and management. Pulm: #Acute Hypoxic Respiratory Failure -Likely secondary to Septic shock from Bowel ischemia and Aspiration PNA -Patient s/p extubation (03/28) and saturating well on high flow volume 40%. Patient remains non-verbal possibly due to vocal cord paralysis/Laryngeal edema/ scar or granluation tissue. -Maintain SpO2 >90% -Incentive spirometry ID: #Septic Shock secondary to SBO and bowel Ischemia -Afebrile -Patient remains off pressors -Continue Meropenem 1gm Q8H (DAY #14). -Vancomycin stopped -Will follow up with ID for deescalation of Abx GI: #Ischemic bowel and incarcerated inguinal Hernia -s/p ex lap and partial bowel resection (03/13) -Stables removed today by Surgery -C-TUBE in place and continues to drain bile -GI consulted -Dr. Mahoney discussed IR guided G-tube placement with family. Family in agreement. -Plan for IR guided PEG on Friday once patient improves more. Cardio: #New onset Atrial Flutter/Atrial Fibrillation -Currently rate controlled and in normal sinus rhythm -Will continue Heparin drip with future plans to bridge with oral AC Vascular: #Right IJ thrombus -Patient currently on Heparin Drip Neuro: #Critical Illness Neuropathy -Continue physical therapy F/E/N -no fluids -monitor lytes -NGT feeds Prophylaxis -Heparin drip for DVT -Protonix 40mg IVP daily for GI Dispo -Full code -Awaiting elodia approval. Visit type - Emergency Visit Emergency Visit: Yes ED Registration Date: 03/12/18 Care time: The patient presented to the Emergency Department on the above date and was hospitalized for further evaluation of their emergent condition. - New Patient This patient is new to me today: No - Critical Care Critical Care patient: Yes Total Critical Care Time (in minutes): 40 Critical Care Statement: The care of this patient involved high complexity decision making to prevent further life threatening deterioration of the patient 's condition and/or to evaluate & treat vital organ system(s) failure or risk of failure.
--- NOTE | 2018-04-02 13:23 | PN ---
Teaching Attending Note Name of Resident: Mukul White ATTENDING PHYSICIAN STATEMENT I saw and evaluated the patient. I reviewed the resident's note and discussed the case with the resident. I agree with the resident's findings and plan as documented. SUBJECTIVE: Patient is feeling better in ICU, No fever or chills, answers to questions by nodding or blinking his eyes OBJECTIVE: Vital Signs Temperature 99.6 F 04/02/18 12:00 Pulse Rate 88 04/02/18 12:00 Respiratory Rate 22 04/02/18 12:00 Blood Pressure 134/81 04/02/18 12:00 O2 Sat by Pulse Oximetry (%) 100 04/02/18 09:03 CBCD WBC 12.6 K/mm3 (4.0-10.0) H 04/02/18 05:30 RBC 3.47 M/mm3 (4.00-5.60) L 04/02/18 05:30 Hgb 10.6 GM/dL (11.7-16.9) L 04/02/18 05:30 Hct 31.8 % (35.4-49) L 04/02/18 05:30 MCV 91.6 fl (80-96) 04/02/18 05:30 MCHC 33.3 g/dl (32.0-35.9) 04/02/18 05:30 RDW 15.1 % (11.9-15.9) 04/02/18 05:30 Plt Count 572 K/MM3 (134-434) H 04/02/18 05:30 MPV 10.1 fl (7.5-11.1) 04/02/18 05:30 CMP Sodium 136 mmol/L (136-145) 04/02/18 05:30 Potassium 4.8 mmol/L (3.5-5.1) 04/02/18 05:30 Chloride 105 mmol/L (98-107) 04/02/18 05:30 Carbon Dioxide 21 mmol/L (21-32) 04/02/18 05:30 Anion Gap 10 (8-16) 04/02/18 05:30 BUN 26 mg/dL (7-18) H 04/02/18 05:30 Creatinine 0.5 mg/dL (0.7-1.3) L D 04/02/18 05:30 Creat Clearance w eGFR > 60 (>60) 04/02/18 05:30 Random Glucose 212 mg/dL (74-106) H 04/02/18 05:30 Calcium 7.9 mg/dL (8.5-10.1) L 04/02/18 05:30 Total Bilirubin 1.2 mg/dL (0.2-1.0) H 04/02/18 05:30 AST 62 U/L (15-37) H 04/02/18 05:30 ALT 77 U/L (12-78) 04/02/18 05:30 Alkaline Phosphatase 231 U/L (45-117) H 04/02/18 05:30 Total Protein 5.6 g/dl (6.4-8.2) L 04/02/18 05:30 Albumin 1.3 g/dl (3.4-5.0) L 04/02/18 05:30 CARDIAC ENZYMES Creatine Kinase 327 IU/L (39-308) H 03/19/18 20:09 Troponin I 0.03 ng/ml (0.00-0.05) D 03/19/18 20:09 Current Medications Generic Name Dose Route Start Last Admin Trade Name Freq PRN Reason Stop Dose Admin Acetaminophen 650 mg 03/27/18 13:00 04/02/18 04:25 Tylenol Oral Solution - PO 650 mg Q6H PRN Administration FEVER Amino Acids 30 ml 03/24/18 13:00 04/01/18 10:24 Prosource No Carb Liquid Pkt PO 30 ml DAILY JUDY Administration Artificial Tears 1 drop 03/24/18 10:59 03/30/18 10:34 Artificial Tears OU 1 drop BID PRN Administration DRY EYES Heparin Sodium (Porcine) 1,000 unit 03/20/18 14:07 04/01/18 19:20 Heparin - IVPUSH 1,000 unit PRN PRN Administration Heparin Heparin Sodium (Porcine) 5,000 unit 03/20/18 14:07 03/31/18 07:56 Heparin - IVPUSH 5,000 unit PRN PRN Administration Heparin Meropenem 1 gm/ Dextrose 100 mls @ 200 mls/hr 03/19/18 18:00 04/02/18 10:15 IVPB 200 mls/hr Q8H-IV JUDY Administration HEPARIN SOD,PORK IN 0.45% NACL 25,000 units in 500 mls @ 20 mls/hr 03/20/18 14 :15 04/01/18 19:20 Heparin-1/2ns 25,000 Units/500 IVPB 1,400 units/hr TITR JUDY 28 mls/hr Titration Protocol 1,000 UNITS/HR Insulin Aspart 1 vial 03/23/18 11:00 04/02/18 06:40 Novolog Vial Sliding Scale - SQ 4 units ACHS JUDY Administration Protocol Ondansetron HCl 4 mg 03/13/18 04:30 Zofran Injection IVPUSH Q6H PRN NAUSEA Pantoprazole Sodium 40 mg 03/13/18 10:00 04/02/18 10:16 Protonix Iv IVPUSH 40 mg DAILY JUDY Administration Home Medications Medication Instructions Recorded Finasteride 5 mg PO DAILY 03/12/18 Omeprazole 20 mg PO DAILY 03/12/18 Tamsulosin HCl 0.4 mg PO DAILY 03/12/18 PE: per resident's note positive for NG tube feeding positive for LEIF drainage ASSESSMENT AND PLAN: Patient is an 82 y/o male with h/o DJD, GERD, diverticulosis who presented with abdominal pain and was found to have SBO with bowel ischemia , with incarcerated hernia and developed acute respiratory failure and septic shock. # Acute hypoxic respirstory failure s/p extubation due to severe sepsis and b/l PNA /ARDS. Lasix as needed , on IV antibiotic. # Septic shock. resolved on Iv Mereponem continue as per ID # S/p Exploratory Laparotomy, segmental terminal ileum ressection with primary anastomosis. on 03/13/2018. Ischemic bowel and incarcerated inguinal hernia repair. # s/p cholecystostomy tube ,surgery on the case Dr. Nance.and as per Radiology to keep it for 6-8 weeks, still draining. Also Peg tube placement ; radiology is consulted , earliest will be on Friday. #New onset A flutter/A fib : now in sinus rhythm. On heparin gtt. continue. will switch to po AC once patient is able to take po , # R IJ thrombus /DVT: on heparin gtt continue # NG-tube feeding ,patient is going for Peg tube feeding on Friday by IR. discussed with . dispo : to be evaluated by [facility] for a transfer to LTAC . DVT Px: heparin
[2018-04-02] MEDS: AMINO ACIDS/PROTEIN HYDROLYS 30 ML LIQUID.PKT PO SCH (14:20)
[2018-04-02] MEDS: HEPARIN SOD,PORK IN 0.45% NACL 25,000 UNITS/500 ML INFUS.BAG IVPB SCH (16:30)
--- NOTE | 2018-04-02 18:08 | PN ---
Physical Exam: SUBJECTIVE: No acute events overnight. No new concerns surfacing today. OBJECTIVE: Vital Signs Period Temp Pulse Resp BP Sys/Ceballos Pulse Ox Last 24 Hr 99.0 F-100.6 F 85-108 18-30 86-134/53-81 96-100 GENERAL: NAD, alert to spontaneous stimuli, listens to commands; some phonation of voice subtley heard, able to squeeze hands weakly HEENT: KITTY, EOMI, NG in place, MMM, swollen lips Neck: No central, site remains w/o erythema, no JVD LUNGS: Improved lung sounds with better aeration. On high flow O2 50L/min. 40% FiO2 HEART: RRR, S1, S2 without murmur ABDOMEN: Soft, nondistended, nontender, Midline incision C/D/I, C-tube draining brown fluid EXTREMITIES: 2+ DP pulses, warm, 1+ ankle edema SKIN: Warm, dry, no rash or lesions currently Laboratory Results - last 24 hr 04/01/18 04/01/18 04/02/18 18:12 21:44 01:00 WBC RBC Hgb Hct MCV MCH MCHC RDW Plt Count MPV PTT (Actin FS) 89.4 H D Sodium Potassium Chloride Carbon Dioxide Anion Gap BUN Creatinine Creat Clearance w eGFR POC Glucometer 234.80706 189.94339 Random Glucose Calcium Phosphorus Magnesium Total Bilirubin AST ALT Alkaline Phosphatase Total Protein Albumin 04/02/18 04/02/18 04/02/18 05:30 05:30 06:03 WBC 12.6 H RBC 3.47 L Hgb 10.6 L Hct 31.8 L MCV 91.6 MCH 30.5 MCHC 33.3 RDW 15.1 Plt Count 572 H MPV 10.1 PTT (Actin FS) Sodium 136 Potassium 4.8 Chloride 105 Carbon Dioxide 21 Anion Gap 10 BUN 26 H Creatinine 0.5 L D Creat Clearance w eGFR > 60 POC Glucometer [phone] Random Glucose 212 H Calcium 7.9 L Phosphorus 2.4 L Magnesium 2.4 Total Bilirubin 1.2 H AST 62 H ALT 77 Alkaline Phosphatase 231 H Total Protein 5.6 L Albumin 1.3 L 04/02/18 04/02/18 04/02/18 12:12 12:14 16:42 WBC RBC Hgb Hct MCV MCH MCHC RDW Plt Count MPV PTT (Actin FS) Sodium Potassium Chloride Carbon Dioxide Anion Gap BUN Creatinine Creat Clearance w eGFR POC Glucometer 100.32672 124.62688 169.59990 Random Glucose Calcium Phosphorus Magnesium Total Bilirubin AST ALT Alkaline Phosphatase Total Protein Albumin Active Medications Generic Name Dose Route Start Last Admin Trade Name Freq PRN Reason Stop Dose Admin Acetaminophen 650 mg 03/27/18 13:00 04/02/18 04:25 Tylenol Oral Solution - PO 650 mg Q6H PRN Administration FEVER Amino Acids 30 ml 03/24/18 13:00 04/02/18 14:20 Prosource No Carb Liquid Pkt PO Not Given DAILY JUDY Artificial Tears 1 drop 03/24/18 10:59 03/30/18 10:34 Artificial Tears OU 1 drop BID PRN Administration DRY EYES Heparin Sodium (Porcine) 1,000 unit 03/20/18 14:07 04/01/18 19:20 Heparin - IVPUSH 1,000 unit PRN PRN Administration Heparin Heparin Sodium (Porcine) 5,000 unit 03/20/18 14:07 03/31/18 07:56 Heparin - IVPUSH 5,000 unit PRN PRN Administration Heparin Meropenem 1 gm/ Dextrose 100 mls @ 200 mls/hr 03/19/18 18:00 04/02/18 17:22 IVPB 200 mls/hr Q8H-IV JUDY Administration HEPARIN SOD,PORK IN 0.45% NACL 25,000 units in 500 mls @ 20 mls/hr 03/20/18 14 :15 04/02/18 16:30 Heparin-1/2ns 25,000 Units/500 IVPB 1,350 units/hr TITR JUDY 27 mls/hr Administration Protocol 1,000 UNITS/HR Insulin Aspart 1 vial 03/23/18 11:00 04/02/18 17:22 Novolog Vial Sliding Scale - SQ 2 units ACHS JUDY Administration Protocol Ondansetron HCl 4 mg 03/13/18 04:30 Zofran Injection IVPUSH Q6H PRN NAUSEA Pantoprazole Sodium 40 mg 03/13/18 10:00 04/02/18 10:16 Protonix Iv IVPUSH 40 mg DAILY JUDY Administration ASSESSMENT/PLAN: 1) Acute hypoxic respiratory failure --Resolving, extubated; 6 --Continue High flow O2 and maintain maintain SpO2 >90% --Aspiration precautions: HOB elevated 2) Septic shock 2/2 to bowel ischemia in addition to aspiration PNA --ID on board --Meropenem to continue 3) Toxic metabolic neuropathy --Continue PT --Awaiting evaluation for LTAC at [place] for intensive physical therapy --Will have to wait to engage in oral medications (can most likely switch to NOACs once able to swallow) --Family decided to go ahead with IR guided PEG tube --Anticipated to be placed on Friday coming up 4) Elevated LFTs --Stable --Discussed with Dr. Fox and will need to keep C-tube for long duration before pulling 5) Atrial flutter/fib --Cardiology consulted --Heparin gtt remains; monitor aPtt; see above regarding NOACs --Echo unremarkable FEN: Fluids: Avoid Electrolyte abnormalities: pseudohypocalcemia Nutrition: NGT feeds ongoing; rate 50 with prosource on board; increase from 1.5 protein to 2.0; discuss PEG? PPX: DVT - Heparin gtt on already GI - Protonix 40mg IVP daily Dispo: Continue ICU monitoring; awaiting LTAC; awaiting PEG tube placement Case discussed with Dr. Soni White, DO - IM PGY-1 Visit type - Emergency Visit Emergency Visit: No - New Patient This patient is new to me today: No - Critical Care Critical Care patient: Yes Total Critical Care Time (in minutes): 35 Critical Care Statement: The care of this patient involved high complexity decision making to prevent further life threatening deterioration of the patient 's condition and/or to evaluate & treat vital organ system(s) failure or risk of failure.
--- NOTE | 2018-04-02 18:42 | PN ---
Progress Note, Physician History of Present Illness: stable no issues improving remaining stable plan for feeding tube family in room - Current Medication List Current Medications: Active Medications Acetaminophen (Tylenol Oral Solution -) 650 mg PO Q6H PRN PRN Reason: FEVER Last Admin: 04/02/18 04:25 Dose: 650 mg Amino Acids (Prosource No Carb Liquid Pkt) 30 ml PO DAILY JUDY Last Admin: 04/02/18 14:20 Dose: Not Given Artificial Tears (Artificial Tears) 1 drop OU BID PRN PRN Reason: DRY EYES Last Admin: 03/30/18 10:34 Dose: 1 drop Heparin Sodium (Porcine) (Heparin -) 1,000 unit IVPUSH PRN PRN PRN Reason: Heparin Last Admin: 04/01/18 19:20 Dose: 1,000 unit Heparin Sodium (Porcine) (Heparin -) 5,000 unit IVPUSH PRN PRN PRN Reason: Heparin Last Admin: 03/31/18 07:56 Dose: 5,000 unit Meropenem 1 gm/ Dextrose 100 mls @ 200 mls/hr IVPB Q8H-IV JUDY Last Admin: 04/02/18 17:22 Dose: 200 mls/hr HEPARIN SOD,PORK IN 0.45% NACL (Heparin-1/2ns 25,000 Units/500) 25,000 units in 500 mls @ 20 mls/hr IVPB TITR JUDY; Protocol Last Admin: 04/02/18 16:30 Dose: 1,350 units/hr, 27 mls/hr Insulin Aspart (Novolog Vial Sliding Scale -) 1 vial SQ ACHS [facility]; Protocol Last Admin: 04/02/18 17:22 Dose: 2 units Ondansetron HCl (Zofran Injection) 4 mg IVPUSH Q6H PRN PRN Reason: NAUSEA Pantoprazole Sodium (Protonix Iv) 40 mg IVPUSH DAILY JUDY Last Admin: 04/02/18 10:16 Dose: 40 mg - Objective Vital Signs: Vital Signs Temperature 100.0 F H 04/02/18 18:00 Pulse Rate 91 H 04/02/18 18:00 Respiratory Rate 21 04/02/18 18:00 Blood Pressure 127/55 04/02/18 18:00 O2 Sat by Pulse Oximetry (%) 98 04/02/18 18:08 Constitutional: Yes: No Distress, Calm Cardiovascular: Yes: Regular Rate and Rhythm Respiratory: Yes: On Nasal O2, Poor Air Entry, Other Gastrointestinal: Yes: Normal Bowel Sounds, Soft, Other (ng tube with feeds) Musculoskeletal: Yes: WNL Edema: LLE: Trace, RLE: Trace Neurological: Yes: Alert, Oriented Psychiatric: Yes: Alert Labs: CBC, BMP 04/02/18 05:30 04/02/18 05:30 INR, PTT INR 1.22 (0.82-1.09) H 03/31/18 05:20 Assessment/Plan Problem List - Problems (1) Strangulated inguinal hernia Pulmonary evaluation - weaning today? GI Evaluation - Tbili 3.5, 3.6 BP goal MAP 65-70, has a stapled small bowel anastomosis avoid lwo flow states will follow Code(s): K40.30 - UNIL INGUINAL HERNIA, W OBST, W/O GANGR, NOT SPCF RECUR (2) Incarcerated left inguinal hernia Code(s): K40.30 - UNIL INGUINAL HERNIA, W OBST, W/O GANGR, NOT SPCF RECUR (3) BPH (benign prostatic hyperplasia) Code(s): N40.0 - BENIGN PROSTATIC HYPERPLASIA WITHOUT LOWER URINRY TRACT SYMP Qualifiers: Lower urinary tract symptom presence: symptoms present Lower urinary tract symptom detail: urinary frequency Qualified Code(s): N40.1 - Benign prostatic hyperplasia with lower urinary tract symptoms; R35.0 - Frequency of micturition ; R35.0 - Frequency of micturition (4) DDD (degenerative disc disease), cervical Code(s): M50.30 - OTHER CERVICAL DISC DEGENERATION, UNSP CERVICAL REGION (5) SBO (small bowel obstruction) Code(s): K56.609 - UNSP INTESTNL OBST, UNSP TO PARTIAL VERSUS COMPLETE OBST (6) Aspiration pneumonia of both lower lobes due to gastric secretions Code(s): J69.0 - PNEUMONITIS DUE TO INHALATION OF FOOD AND VOMIT r/o acalculus choley plan continue abx monitor wbc close watch chest pt rest as per icu xray labs noted patient improving cc 40 min
[2018-04-02] MEDS ORDERED: SODIUM PHOSPHATE - 30 MM in DEXTROSE 5%-WATER - 250 ML IVPB ONE (23:15)
[2018-04-03] MEDS: MEROPENEM 1 GM in DEXTROSE 5%-WATER 100 ML IVPB SCH ×3 (01:16→17:19)
[2018-04-03 06:19] LABS: HEMATOCRIT 30.6 % (35.4-49); HEMOGLOBIN 10.3 GM/dL (11.7-16.9); MCH 30.9 pg (25.7-33.7); MCHC 33.8 g/dl (32.0-35.9); MEAN CELL VOLUME 91.4 fl (80-96); MEAN PLT VOLUME 9.6 fl (7.5-11.1); PLATELET COUNT 527 K/MM3 (134-434); RBC 3.35 M/mm3 (4.00-5.60); WHITE BLOOD COUNT 10.1 K/mm3 (4.0-10.0)
[2018-04-03 06:42] LABS: CALCIUM 7.5 mg/dL (8.5-10.1); CHLORIDE 106 mmol/L (98-107); POTASSIUM 4.3 mmol/L (3.5-5.1); SODIUM 138 mmol/L (136-145)
[2018-04-03 06:48] LABS: ALBUMIN 1.2 g/dl (3.4-5.0); ALK PHOS 213 U/L (45-117); ANION GAP 9 (8-16); BLOOD UREA NITROGEN 29 mg/dL (7-18); CO2 23 mmol/L (21-32); CREATININE 0.6 mg/dL (0.7-1.3); GLUCOSE,RANDOM 188 mg/dL (74-106); MAGNESIUM 2.3 mg/dL (1.8-2.4); PHOSPHOROUS 4.1 mg/dL (2.5-4.9); SGOT/AST 78 U/L (15-37); SGPT/ALT 85 U/L (12-78); TOT PROT 5.2 g/dl (6.4-8.2)
[2018-04-03] MEDS: INSULIN SLIDING SCALE (NOVOLOG) 1 VIAL SQ SCH ×4 (06:52→23:31)
[2018-04-03] MEDS ORDERED: PT OWN MED DRAWER 7, Y5N ONE ×2 (09:28→15:44)
[2018-04-03] MEDS: PANTOPRAZOLE SODIUM 40 MG VIAL IVPUSH SCH (09:42)
[2018-04-03] MEDS: AMINO ACIDS/PROTEIN HYDROLYS 30 ML LIQUID.PKT PO SCH (09:43)
--- NOTE | 2018-04-03 10:39 | PN ---
<RajivdarrinMukul - Last Filed: 04/03/18 10:53> Physical Exam: SUBJECTIVE: No acute events overnight. Pt remains on high flow with increasing movement, however still weak. OBJECTIVE: Vital Signs Period Temp Pulse Resp BP Sys/Ceballos Pulse Ox Last 24 Hr 99 F-100.3 F 86-104 20-30 97-134/50-81 96-100 GENERAL: NAD, alert to spontaneous stimuli, listens to commands; some phonation of voice subtley heard HEENT: KITTY, EOMI, NG in place, MMM, swollen lips Neck: no JVD LUNGS: Improved lung sounds with better aeration. On high flow O2 50L/min. 40% FiO2 HEART: RRR, S1, S2 without murmur ABDOMEN: Soft, nondistended, nontender, Midline incision C/D/I, C-tube draining brown fluid NEURO: Strength increasing in all limbs, however still 4/5 in lower extremities and 2-3/5 in hand perfume and toilet water maker. EXTREMITIES: 2+ DP pulses, warm, minimal ankle edema SKIN: Warm, dry, no rash or lesions currently Laboratory Results - last 24 hr 04/02/18 04/02/18 04/02/18 12:12 12:14 16:42 WBC RBC Hgb Hct MCV MCH MCHC RDW Plt Count MPV PTT (Actin FS) Sodium Potassium Chloride Carbon Dioxide Anion Gap BUN Creatinine Creat Clearance w eGFR POC Glucometer 100.20414 124.44843 [phone] Random Glucose Calcium Phosphorus Magnesium Total Bilirubin AST ALT Alkaline Phosphatase Total Protein Albumin 04/02/18 04/03/18 04/03/18 21:22 06:00 06:00 WBC 10.1 H RBC 3.35 L Hgb 10.3 L Hct 30.6 L MCV 91.4 MCH 30.9 MCHC 33.8 RDW 16.0 H Plt Count 527 H MPV 9.6 PTT (Actin FS) Sodium 138 Potassium 4.3 Chloride 106 Carbon Dioxide 23 Anion Gap 9 BUN 29 H Creatinine 0.6 L Creat Clearance w eGFR > 60 POC Glucometer [phone] Random Glucose 188 H Calcium 7.5 L Phosphorus 4.1 D Magnesium 2.3 Total Bilirubin 1.0 AST 78 H D ALT 85 H Alkaline Phosphatase 213 H Total Protein 5.2 L Albumin 1.2 L 04/03/18 06:00 WBC RBC Hgb Hct MCV MCH MCHC RDW Plt Count MPV PTT (Actin FS) 74.9 H Sodium Potassium Chloride Carbon Dioxide Anion Gap BUN Creatinine Creat Clearance w eGFR POC Glucometer Random Glucose Calcium Phosphorus Magnesium Total Bilirubin AST ALT Alkaline Phosphatase Total Protein Albumin Active Medications Generic Name Dose Route Start Last Admin Trade Name Franklinq PRN Reason Stop Dose Admin Acetaminophen 650 mg 03/27/18 13:00 04/02/18 04:25 Tylenol Oral Solution - PO 650 mg Q6H PRN Administration FEVER Amino Acids 30 ml 03/24/18 13:00 04/03/18 09:43 Prosource No Carb Liquid Pkt PO 30 ml DAILY JUDY Administration Artificial Tears 1 drop 03/24/18 10:59 03/30/18 10:34 Artificial Tears OU 1 drop BID PRN Administration DRY EYES Meropenem 1 gm/ Dextrose 100 mls @ 200 mls/hr 03/19/18 18:00 04/03/18 09:42 IVPB 200 mls/hr Q8H-IV JUDY Administration HEPARIN SOD,PORK IN 0.45% NACL 25,000 units in 500 mls @ 20 mls/hr 03/20/18 14 :15 04/02/18 16:30 Heparin-1/2ns 25,000 Units/500 IVPB 1,350 units/hr TITR JUDY 27 mls/hr Administration Protocol 1,000 UNITS/HR Insulin Aspart 1 vial 03/23/18 11:00 04/03/18 06:52 Novolog Vial Sliding Scale - SQ 2 units ACHS JUDY Administration Protocol Ondansetron HCl 4 mg 03/13/18 04:30 Zofran Injection IVPUSH Q6H PRN NAUSEA Pantoprazole Sodium 40 mg 03/13/18 10:00 04/03/18 09:42 Protonix Iv IVPUSH 40 mg DAILY JUDY Administration ASSESSMENT/PLAN: 1) Acute hypoxic respiratory failure --Resolving, extubated; 6/2 --Continue High flow O2 and maintain maintain SpO2 >90% --Aspiration precautions: HOB elevated 2) Septic shock 2/2 to bowel ischemia in addition to aspiration PNA --ID on board --Meropenem to continue 3) Toxic metabolic neuropathy --Continue PT --Awaiting evaluation for LTAC at [facility] for intensive physical therapy --Will have to wait to engage in oral medications (can most likely switch to NOACs once able to swallow) --Family decided to go ahead with IR guided PEG tube --Anticipated to be placed on Friday coming up 4) Elevated LFTs --Stable --Discussed with IR and will need to keep C-tube for long duration before pulling 5) Atrial flutter/fib --Cardiology consulted --Heparin gtt remains; monitor aPtt; see above regarding NOACs --Echo unremarkable FEN: Fluids: Avoid Electrolyte abnormalities: pseudohypocalcemia (cCa 9.74) Nutrition: NGT feeds ongoing; rate 50 with prosource on board; increase from 1.5 protein to 2.0; discuss PEG? PPX: DVT - Heparin gtt on already GI - Protonix 40mg IVP daily Dispo: Continue ICU monitoring; awaiting LTAC; awaiting PEG tube placement Case discussed with Dr. Soni White, DO - IM PGY-1 Visit type - Emergency Visit Emergency Visit: No - New Patient This patient is new to me today: No - Critical Care Critical Care patient: Yes Total Critical Care Time (in minutes): 35 Critical Care Statement: The care of this patient involved high complexity decision making to prevent further life threatening deterioration of the patient 's condition and/or to evaluate & treat vital organ system(s) failure or risk of failure. <Amber Shafer - Last Filed: 04/03/18 15:13> Physical Exam: Vital Signs Temperature 99 F 04/03/18 10:00 Pulse Rate 88 04/03/18 10:00 Respiratory Rate 24 04/03/18 10:00 Blood Pressure 115/55 04/03/18 10:00 O2 Sat by Pulse Oximetry (%) 98 04/03/18 13:40 CBCD WBC 10.1 K/mm3 (4.0-10.0) H 04/03/18 06:00 RBC 3.35 M/mm3 (4.00-5.60) L 04/03/18 06:00 Hgb 10.3 GM/dL (11.7-16.9) L 04/03/18 06:00 Hct 30.6 % (35.4-49) L 04/03/18 06:00 MCV 91.4 fl (80-96) 04/03/18 06:00 MCHC 33.8 g/dl (32.0-35.9) 04/03/18 06:00 RDW 16.0 % (11.9-15.9) H 04/03/18 06:00 Plt Count 527 K/MM3 (134-434) H 04/03/18 06:00 MPV 9.6 fl (7.5-11.1) 04/03/18 06:00 CMP Sodium 138 mmol/L (136-145) 04/03/18 06:00 Potassium 4.3 mmol/L (3.5-5.1) 04/03/18 06:00 Chloride 106 mmol/L (98-107) 04/03/18 06:00 Carbon Dioxide 23 mmol/L (21-32) 04/03/18 06:00 Anion Gap 9 (8-16) 04/03/18 06:00 BUN 29 mg/dL (7-18) H 04/03/18 06:00 Creatinine 0.6 mg/dL (0.7-1.3) L 04/03/18 06:00 Creat Clearance w eGFR > 60 (>60) 04/03/18 06:00 Random Glucose 188 mg/dL (74-106) H 04/03/18 06:00 Calcium 7.5 mg/dL (8.5-10.1) L 04/03/18 06:00 Total Bilirubin 1.0 mg/dL (0.2-1.0) 04/03/18 06:00 AST 78 U/L (15-37) H D 04/03/18 06:00 ALT 85 U/L (12-78) H 04/03/18 06:00 Alkaline Phosphatase 213 U/L (45-117) H 04/03/18 06:00 Total Protein 5.2 g/dl (6.4-8.2) L 04/03/18 06:00 Albumin 1.2 g/dl (3.4-5.0) L 04/03/18 06:00 CARDIAC ENZYMES Creatine Kinase 327 IU/L (39-308) H 03/19/18 20:09 Troponin I 0.03 ng/ml (0.00-0.05) D 03/19/18 20:09 Current Medications Generic Name Dose Route Start Last Admin Trade Name Freq PRN Reason Stop Dose Admin Acetaminophen 650 mg 03/27/18 13:00 04/02/18 04:25 Tylenol Oral Solution - PO 650 mg Q6H PRN Administration FEVER Amino Acids 30 ml 03/24/18 13:00 04/03/18 09:43 Prosource No Carb Liquid Pkt PO 30 ml DAILY JUDY Administration Artificial Tears 1 drop 03/24/18 10:59 03/30/18 10:34 Artificial Tears OU 1 drop BID PRN Administration DRY EYES Meropenem 1 gm/ Dextrose 100 mls @ 200 mls/hr 03/19/18 18:00 04/03/18 09:42 IVPB 200 mls/hr Q8H-IV JUDY Administration HEPARIN SOD,PORK IN 0.45% NACL 25,000 units in 500 mls @ 20 mls/hr 03/20/18 14 :15 04/02/18 16:30 Heparin-1/2ns 25,000 Units/500 IVPB 1,350 units/hr TITR JUDY 27 mls/hr Administration Protocol 1,000 UNITS/HR Insulin Aspart 1 vial 03/23/18 11:00 04/03/18 11:56 Novolog Vial Sliding Scale - SQ 4 units ACHS JUDY Administration Protocol Ondansetron HCl 4 mg 03/13/18 04:30 Zofran Injection IVPUSH Q6H PRN NAUSEA Ranitidine HCl 150 mg 04/03/18 11:45 04/03/18 11:57 Zantac Oral Solution - NGT Not Given DAILY JUDY patient is comfortable will go for peg tube placement on Friday by IR. Continue current management.
--- NOTE | 2018-04-03 11:30 | PN ---
Teaching Attending Note Name of Resident: Luke Drake ATTENDING PHYSICIAN STATEMENT I saw and evaluated the patient. I reviewed the resident's note and discussed the case with the resident. I agree with the resident's findings and plan as documented. SUBJECTIVE: Patient seen and examined in the ICU. Remains extubated, on HFNC O2 (50 liters / 40% FiO2). Awake and interactive, voice is still very weak. No pressors. CXR: Improving atelectasis Intake & Output 03/31/18 04/01/18 04/02/18 04/03/18 23:59 23:59 23:59 23:59 Intake Total 2027 2268 1177 959 Output Total 4225 2310 2885 800 Balance -2197 -42 -1708 159 Weight 162 lb 1 oz 154 lb 2 oz 154 lb 5.177 oz 149 lb 9.6 oz Last Vital Signs Temp Pulse Resp BP Pulse Ox 99 F 88 24 115/55 99 04/03/18 10:00 04/03/18 10:00 04/03/18 10:00 04/03/18 10:00 04/03/18 10:59 Active Medications Acetaminophen (Tylenol Oral Solution -) 650 mg PO Q6H PRN PRN Reason: FEVER Last Admin: 04/02/18 04:25 Dose: 650 mg Amino Acids (Prosource No Carb Liquid Pkt) 30 ml PO DAILY JUDY Last Admin: 04/03/18 09:43 Dose: 30 ml Artificial Tears (Artificial Tears) 1 drop OU BID PRN PRN Reason: DRY EYES Last Admin: 03/30/18 10:34 Dose: 1 drop Meropenem 1 gm/ Dextrose 100 mls @ 200 mls/hr IVPB Q8H-IV JUDY Last Admin: 04/03/18 09:42 Dose: 200 mls/hr HEPARIN SOD,PORK IN 0.45% NACL (Heparin-1/2ns 25,000 Units/500) 25,000 units in 500 mls @ 20 mls/hr IVPB TITR JUDY; Protocol Last Admin: 04/02/18 16:30 Dose: 1,350 units/hr, 27 mls/hr Insulin Aspart (Novolog Vial Sliding Scale -) 1 vial SQ ACHS JUDY; Protocol Last Admin: 04/03/18 06:52 Dose: 2 units Ondansetron HCl (Zofran Injection) 4 mg IVPUSH Q6H PRN PRN Reason: NAUSEA Pantoprazole Sodium (Protonix Iv) 40 mg IVPUSH DAILY JUDY Last Admin: 04/03/18 09:42 Dose: 40 mg Gen: Awake and interactive in HFNC O2 Heart: RRR Lung: scattered rhonchi Abd: soft, nontender, (+) BS Ext: Less edema Laboratory Results - last 24 hr 04/02/18 04/02/18 04/02/18 12:12 12:14 16:42 WBC RBC Hgb Hct MCV MCH MCHC RDW Plt Count MPV PTT (Actin FS) Sodium Potassium Chloride Carbon Dioxide Anion Gap BUN Creatinine Creat Clearance w eGFR POC Glucometer 100.01001 124.12819 169.97383 Random Glucose Calcium Phosphorus Magnesium Total Bilirubin AST ALT Alkaline Phosphatase Total Protein Albumin 04/02/18 04/03/18 04/03/18 21:22 06:00 06:00 WBC 10.1 H RBC 3.35 L Hgb 10.3 L Hct 30.6 L MCV 91.4 MCH 30.9 MCHC 33.8 RDW 16.0 H Plt Count 527 H MPV 9.6 PTT (Actin FS) Sodium 138 Potassium 4.3 Chloride 106 Carbon Dioxide 23 Anion Gap 9 BUN 29 H Creatinine 0.6 L Creat Clearance w eGFR > 60 POC Glucometer 183.74056 Random Glucose 188 H Calcium 7.5 L Phosphorus 4.1 D Magnesium 2.3 Total Bilirubin 1.0 AST 78 H D ALT 85 H Alkaline Phosphatase 213 H Total Protein 5.2 L Albumin 1.2 L 04/03/18 06:00 WBC RBC Hgb Hct MCV MCH MCHC RDW Plt Count MPV PTT (Actin FS) 74.9 H Sodium Potassium Chloride Carbon Dioxide Anion Gap BUN Creatinine Creat Clearance w eGFR POC Glucometer Random Glucose Calcium Phosphorus Magnesium Total Bilirubin AST ALT Alkaline Phosphatase Total Protein Albumin ASSESSMENT AND PLAN: CIP Acute Hypoxic Respiratory Failure Aspiration Pneumonia ARDS resolving Incarcerated Inguinal Hernia s/p ex-lap/segmental terminal ileum resection/primary anastamosis 03/13 Suspected Acalculus Cholecystitis s/p percutaneous cholecystostomy Septic Shock resolving Acute Kidney Injury improving Lactic Acidosis resolved New onset Paroxysmal Atrial Fibrillation Diverticulosis BPH - Pulmonary toilet / Chest PT - Wean HFNC O2 if possible - antibiotics per ID - continue anticoagulation - Daily assessment for need for lasix: hold today - monitor urine output, creatinine - Follow CXR - enteral feeds : Will need PEG - DVT/GI prophylaxis - LTAC evaluation - continue ICU monitoring Dr Moreno Critical care time spent in reviewing chart, evaluating patient and formulating plan 35 min
[2018-04-03] MEDS ORDERED: HEMOQUE TEST 1 EACH EACH ONE ×2 (11:35→11:36)
--- NOTE | 2018-04-03 11:49 | PN ---
Physical Exam: SUBJECTIVE: Patient seen and examined. Awake, alert, with no change since yesterday. HFNC O2 (50 liters / 40% FiO2) CXR: atelectasis improving OBJECTIVE: Vital Signs Period Temp Pulse Resp BP Sys/Ceballos Pulse Ox Last 24 Hr 99 F-100.3 F 86-104 20-30 97-134/50-81 96-100 GENERAL: The patient is awake, alert. follows commands. EYES: PERRL, sclera anicteric, conjunctiva clear. No ptosis. ENT: NG Tube in place LUNGS: decreased breath sounds at the bases HEART: Regular rate and rhythm, S1, S2 without murmur, rub or gallop. ABDOMEN: Midline vertical surgical wound. Soft, nontender, nondistended, (+) bowel sounds. RUQ LEIF draining EXTREMITIES: 1+ pitting edema of b/l LE, less today Laboratory Results - last 24 hr 04/02/18 04/02/18 04/02/18 12:12 12:14 16:42 WBC RBC Hgb Hct MCV MCH MCHC RDW Plt Count MPV PTT (Actin FS) Sodium Potassium Chloride Carbon Dioxide Anion Gap BUN Creatinine Creat Clearance w eGFR POC Glucometer 100.41929 124.80896 169.84093 Random Glucose Calcium Phosphorus Magnesium Total Bilirubin AST ALT Alkaline Phosphatase Total Protein Albumin 04/02/18 04/03/18 04/03/18 21:22 06:00 06:00 WBC 10.1 H RBC 3.35 L Hgb 10.3 L Hct 30.6 L MCV 91.4 MCH 30.9 MCHC 33.8 RDW 16.0 H Plt Count 527 H MPV 9.6 PTT (Actin FS) Sodium 138 Potassium 4.3 Chloride 106 Carbon Dioxide 23 Anion Gap 9 BUN 29 H Creatinine 0.6 L Creat Clearance w eGFR > 60 POC Glucometer 183.81161 Random Glucose 188 H Calcium 7.5 L Phosphorus 4.1 D Magnesium 2.3 Total Bilirubin 1.0 AST 78 H D ALT 85 H Alkaline Phosphatase 213 H Total Protein 5.2 L Albumin 1.2 L 04/03/18 06:00 WBC RBC Hgb Hct MCV MCH MCHC RDW Plt Count MPV PTT (Actin FS) 74.9 H Sodium Potassium Chloride Carbon Dioxide Anion Gap BUN Creatinine Creat Clearance w eGFR POC Glucometer Random Glucose Calcium Phosphorus Magnesium Total Bilirubin AST ALT Alkaline Phosphatase Total Protein Albumin Active Medications Generic Name Dose Route Start Last Admin Trade Name Freq PRN Reason Stop Dose Admin Acetaminophen 650 mg 03/27/18 13:00 04/02/18 04:25 Tylenol Oral Solution - PO 650 mg Q6H PRN Administration FEVER Amino Acids 30 ml 03/24/18 13:00 04/03/18 09:43 Prosource No Carb Liquid Pkt PO 30 ml DAILY JUDY Administration Artificial Tears 1 drop 03/24/18 10:59 03/30/18 10:34 Artificial Tears OU 1 drop BID PRN Administration DRY EYES Meropenem 1 gm/ Dextrose 100 mls @ 200 mls/hr 03/19/18 18:00 04/03/18 09:42 IVPB 200 mls/hr Q8H-IV JUDY Administration HEPARIN SOD,PORK IN 0.45% NACL 25,000 units in 500 mls @ 20 mls/hr 03/20/18 14 :15 04/02/18 16:30 Heparin-1/2ns 25,000 Units/500 IVPB 1,350 units/hr TITR JUDY 27 mls/hr Administration Protocol 1,000 UNITS/HR Insulin Aspart 1 vial 03/23/18 11:00 04/03/18 06:52 Novolog Vial Sliding Scale - SQ 2 units ACHS JUDY Administration Protocol Ondansetron HCl 4 mg 03/13/18 04:30 Zofran Injection IVPUSH Q6H PRN NAUSEA Ranitidine HCl 150 mg 04/03/18 11:45 Zantac Oral Solution - NGT DAILY JUDY ASSESSMENT/PLAN: Patient is an 82 year old male who presented with abdominal pain and was found to have SBO with bowel ischemia from incarcerated hernia and developed acute respiratory failure from septic shock. Patient admitted for further monitoring and management. Pulm: #Acute Hypoxic Respiratory Failure -Likely secondary to Septic shock from Bowel ischemia and Aspiration PNA -Patient s/p extubation (03/28) and saturating well on high flow volume 40%. Patient remains non-verbal possibly due to vocal cord paralysis/Laryngeal edema/ scar or granluation tissue. -Decrease flow to 30, FIO2 to 35% -Maintain SpO2 >90% -Incentive spirometry -AM CXR ID: #Septic Shock secondary to SBO and bowel Ischemia -Afebrile -Patient remains off pressors -Continue Meropenem 1gm Q8H (DAY #15). -Vancomycin stopped -Will follow up with ID for deescalation of Abx GI: #Ischemic bowel and incarcerated inguinal Hernia -s/p ex lap and partial bowel resection (03/13) -Stables removed today by Surgery -C-TUBE in place and continues to drain bile -GI consulted -Dr. Mahoney discussed IR guided G-tube placement with family. Family in agreement. -Plan for IR guided PEG on Friday once patient improves more. Cardio: #New onset Atrial Flutter/Atrial Fibrillation -Currently rate controlled and in normal sinus rhythm -Will continue Heparin drip with future plans to bridge with oral AC Vascular: #Right IJ thrombus -Cont. Heparin Drip Neuro: #Critical Illness Neuropathy -Continue physical therapy F/E/N -no fluids -monitor lytes -NGT feeds Prophylaxis -Heparin drip for DVT -Zantac 150 daily Dispo -Full code -Family not interested in [place]. seo manager looking into other options of LTACH placement. Visit type - Emergency Visit Emergency Visit: Yes ED Registration Date: 03/12/18 Care time: The patient presented to the Emergency Department on the above date and was hospitalized for further evaluation of their emergent condition. - New Patient This patient is new to me today: No - Critical Care Critical Care patient: Yes Total Critical Care Time (in minutes): 40 Critical Care Statement: The care of this patient involved high complexity decision making to prevent further life threatening deterioration of the patient 's condition and/or to evaluate & treat vital organ system(s) failure or risk of failure.
--- NOTE | 2018-04-03 11:55 | PN ---
Progress Note (short form) - Note Progress Note: Chief Complaint: septic shock History of Present Illness: awake, but minimally interactive. not communicating well. no overnight events. Current Medications Generic Name Dose Route Start Last Admin Trade Name Tushar PRN Reason Stop Dose Admin Acetaminophen 650 mg 03/27/18 13:00 04/02/18 04:25 Tylenol Oral Solution - PO 650 mg Q6H PRN Administration FEVER Amino Acids 30 ml 03/24/18 13:00 04/03/18 09:43 Prosource No Carb Liquid Pkt PO 30 ml DAILY JUDY Administration Artificial Tears 1 drop 03/24/18 10:59 03/30/18 10:34 Artificial Tears OU 1 drop BID PRN Administration DRY EYES Meropenem 1 gm/ Dextrose 100 mls @ 200 mls/hr 03/19/18 18:00 04/03/18 09:42 IVPB 200 mls/hr Q8H-IV JUDY Administration HEPARIN SOD,PORK IN 0.45% NACL 25,000 units in 500 mls @ 20 mls/hr 03/20/18 14 :15 04/02/18 16:30 Heparin-1/2ns 25,000 Units/500 IVPB 1,350 units/hr TITR JUDY 27 mls/hr Administration Protocol 1,000 UNITS/HR Insulin Aspart 1 vial 03/23/18 11:00 04/03/18 06:52 Novolog Vial Sliding Scale - SQ 2 units ACHS JUDY Administration Protocol Ondansetron HCl 4 mg 03/13/18 04:30 Zofran Injection IVPUSH Q6H PRN NAUSEA Ranitidine HCl 150 mg 04/03/18 11:45 Zantac Oral Solution - NGT DAILY JUDY Vital Signs Period Temp Pulse Resp BP Sys/Ceballos Pulse Ox Last 24 Hr 99 F-100.3 F 86-104 20-30 97-134/50-81 96-100 nad no jvd trace bibasilar rales, poor eff rrr nl s1s2 no mrg + bs soft nt nd trace dependent edema bl, no c/c no jaundice diaphoresis lethargic Labs: CBC, BMP 04/03/18 06:00 04/03/18 06:00 tele: SR ecg: sr, nl intervals, no ischemic changes head ct: no acute pathology echo 02/2018: nl lv/rv, mild mr/tr/ar cxr: chf, slightly improved cxr 03/25: no sig change Assessment/Plan a/p: 82 m hx gerd, bph, here with abd pain/sepsis - found to have sbo, now s/p OR hospital course c/b new afib. septic shock/sbo/cholecystitis/asp pna: -s/p ex-lap/segmental terminal ileum resection/primary anastamosis 03/13 -Suspected Acalculus Cholecystitis s/p percutaneous cholecystostomy 03/20 -asp pna -now extubated, off pressors. bp stable. cont abx per ID -receiving IV lasix prn per CXR appearing congested. new pafib --> conversion to sr: -new onset here. rate controlled w/o meds. 03/25 converted to sr-->remains in sinus -echo unremarkable -chadsvasc warrants ac. continue UFH gtt --> NOAC once able to take po
[2018-04-03] MEDS: RANITIDINE HCL 150 MG/10 ML UNIT-DOSE NGT SCH (11:57)
[2018-04-03 13:01] VITALS: BMI 34.4
--- NOTE | 2018-04-03 13:18 | PN ---
Progress Note, Physician Chief Complaint: SBO History of Present Illness: 82 yo male PMH BPH, degernerative disc disease (cervical), diverticulosis, hemorrhoids presented to the ED with abdominal pain and vomiting for on day. He reports that he was weight training yesterday and developed some groin pain. 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 gradually more responsive, intermittent clinical improvement. - Current Medication List Current Medications: Active Medications Acetaminophen (Tylenol Oral Solution -) 650 mg PO Q6H PRN PRN Reason: FEVER Last Admin: 04/02/18 04:25 Dose: 650 mg Amino Acids (Prosource No Carb Liquid Pkt) 30 ml PO DAILY JUDY Last Admin: 04/03/18 09:43 Dose: 30 ml Artificial Tears (Artificial Tears) 1 drop OU BID PRN PRN Reason: DRY EYES Last Admin: 03/30/18 10:34 Dose: 1 drop Meropenem 1 gm/ Dextrose 100 mls @ 200 mls/hr IVPB Q8H-IV JUDY Last Admin: 04/03/18 09:42 Dose: 200 mls/hr HEPARIN SOD,PORK IN 0.45% NACL (Heparin-1/2ns 25,000 Units/500) 25,000 units in 500 mls @ 20 mls/hr IVPB TITR JUDY; Protocol Last Admin: 04/02/18 16:30 Dose: 1,350 units/hr, 27 mls/hr Insulin Aspart (Novolog Vial Sliding Scale -) 1 vial SQ ACHS JUDY; Protocol Last Admin: 04/03/18 11:56 Dose: 4 units Ondansetron HCl (Zofran Injection) 4 mg IVPUSH Q6H PRN PRN Reason: NAUSEA Ranitidine HCl (Zantac Oral Solution -) 150 mg NGT DAILY JUDY Last Admin: 04/03/18 11:57 Dose: Not Given - Objective Vital Signs: Vital Signs Temperature 99 F 04/03/18 10:00 Pulse Rate 88 04/03/18 10:00 Respiratory Rate 24 04/03/18 10:00 Blood Pressure 115/55 04/03/18 10:00 O2 Sat by Pulse Oximetry (%) 99 04/03/18 10:59 Vital Signs Period Temp Pulse Resp BP Sys/Ceballos Pulse Ox Last 24 Hr 99 F-100.3 F 86-104 20-30 97-127/50-64 96-100 Intake & Output 04/02/18 04/03/18 04/03/18 23:59 07:59 15:59 Intake Total 635 959 Output Total 660 800 Balance -25 159 Weight 149 lb 9.6 oz Intake: IV 135 189 HEPARIN-1/2NS 25,000 135 189 UNITS/500 25,000 units In 500 ml @ 1,000 UNITS/HR 20 mls/hr IVPB TITR JUDY Rx#:[id number] IVPB 140 350 Tube Feeding 300 350 Tube Irrigant 60 70 Output: Drainage 60 50 Right Upper Abdomen 60 50 Urine 600 750 Scott 600 750 Other: Voiding Method Indwelling Catheter Indwelling Catheter Bowel Movement Yes # Bowel Movements 1 Body Mass Index (BMI) 34.4 Weight Measurement Method Built in [facility] Constitutional: Yes: No Distress, Calm Eyes: Yes: Conjunctiva Clear, EOM Intact HENT: Yes: Atraumatic, Normocephalic Neck: Yes: Supple, Trachea Midline Cardiovascular: Yes: Regular Rate and Rhythm, S1, S2 Respiratory: Yes: Regular, CTA Bilaterally, On Nasal O2 Gastrointestinal: Yes: Normal Bowel Sounds, Soft Labs: CBC, BMP 04/03/18 06:00 04/03/18 06:00 INR, PTT INR 1.22 (0.82-1.09) H 18 05:20 Problem List - Problems (1) Strangulated inguinal hernia Assessment/Plan: 82yo male MMP relatively healthy with SBO abdominal pain non reducible LIH, unclear transition point and no clear bowel ischemia identified. Bibasilar pulmonary consolidation and hoarsness may be a sequela of an aspiration. POD#20 s/p Exploratory Laparotomy, segmental ressection of SB and primary stapled anastomosis for strangulated RIH. low grade fevers persists. Patient has soft bowel movements. Extubated on high flow NC. S/p percutaneous cholecystostomy. Surgical gastrostomy being discussed ICU management NGT feeds to goal for IBW Antibiotics per ID Cholecystostomy management per IR Physical Therapy followup GI and DVT prophylaxsis D/C planning to senior living acute care facility to be determined will follow peripherally This patient is critically ill. Time spent reviewing chart, examining patient, talking with providers and/or family and documentation is 35 minutes Code(s): K40.30 - UNIL INGUINAL HERNIA, W OBST, W/O GANGR, NOT SPCF RECUR (2) Incarcerated left inguinal hernia Code(s): K40.30 - UNIL INGUINAL HERNIA, W OBST, W/O GANGR, NOT SPCF RECUR (3) BPH (benign prostatic hyperplasia) Code(s): N40.0 - BENIGN PROSTATIC HYPERPLASIA WITHOUT LOWER URINRY TRACT SYMP Qualifiers: Lower urinary tract symptom presence: symptoms present Lower urinary tract symptom detail: urinary frequency Qualified Code(s): N40.1 - Benign prostatic hyperplasia with lower urinary tract symptoms; R35.0 - Frequency of micturition ; R35.0 - Frequency of micturition (4) DDD (degenerative disc disease), cervical Code(s): M50.30 - OTHER CERVICAL DISC DEGENERATION, UNSP CERVICAL REGION (5) SBO (small bowel obstruction) Code(s): K56.609 - UNSP INTESTNL OBST, UNSP TO PARTIAL VERSUS COMPLETE OBST (6) Aspiration pneumonia of both lower lobes due to gastric secretions Code(s): J69.0 - PNEUMONITIS DUE TO INHALATION OF FOOD AND VOMIT
--- NOTE | 2018-04-03 15:30 | PN ---
Progress Note, RADIOLOGY TRANSPORTER - Note Progress Note: Improving with intermittent voicing now. Delayed response but producing occasional words and phrases! Pt able to protrude tongue now. Weak swallow. Plan is for GT in IR on Friday. Prognosis for swallowing function is improving. Pt will benefit from intensive rehabilitation. Discussed with nursing. Consider Lady Jasso?
[2018-04-03] MEDS: HEPARIN SOD,PORK IN 0.45% NACL 25,000 UNITS/500 ML INFUS.BAG IVPB SCH (17:18)
--- NOTE | 2018-04-03 17:53 | PN ---
Progress Note, Physician History of Present Illness: patient continues to improve still on nasal canula in room stable - Current Medication List Current Medications: Active Medications Acetaminophen (Tylenol Oral Solution -) 650 mg PO Q6H PRN PRN Reason: FEVER Last Admin: 04/02/18 04:25 Dose: 650 mg Amino Acids (Prosource No Carb Liquid Pkt) 30 ml PO DAILY [facility] Last Admin: 04/03/18 09:43 Dose: 30 ml Artificial Tears (Artificial Tears) 1 drop OU BID PRN PRN Reason: DRY EYES Last Admin: 03/30/18 10:34 Dose: 1 drop Meropenem 1 gm/ Dextrose 100 mls @ 200 mls/hr IVPB Q8H-IV [facility]Y Last Admin: 04/03/18 17:19 Dose: 200 mls/hr HEPARIN SOD,PORK IN 0.45% NACL (Heparin-1/2ns 25,000 Units/500) 25,000 units in 500 mls @ 20 mls/hr IVPB TITR [facility]; Protocol Last Admin: 04/03/18 17:18 Dose: 1,300 units/hr, 26 mls/hr Insulin Aspart (Novolog Vial Sliding Scale -) 1 vial SQ ACHS [facility]; Protocol Last Admin: 04/03/18 17:18 Dose: 4 units Ondansetron HCl (Zofran Injection) 4 mg IVPUSH Q6H PRN PRN Reason: NAUSEA Ranitidine HCl (Zantac Oral Solution -) 150 mg NGT DAILY [facility] Last Admin: 04/03/18 11:57 Dose: Not Given - Objective Vital Signs: Vital Signs Temperature 99 F 04/03/18 10:00 Pulse Rate 88 04/03/18 10:00 Respiratory Rate 24 04/03/18 10:00 Blood Pressure 115/55 04/03/18 10:00 O2 Sat by Pulse Oximetry (%) 99 04/03/18 16:10 Constitutional: Yes: No Distress, Calm Cardiovascular: Yes: Regular Rate and Rhythm Respiratory: Yes: Regular, On Nasal O2, Other Gastrointestinal: Yes: Normal Bowel Sounds, Soft Musculoskeletal: Yes: WNL Extremities: Yes: Other Neurological: Yes: Alert Psychiatric: Yes: Alert Labs: CBC, BMP 04/03/18 06:00 04/03/18 06:00 INR, PTT INR 1.22 (0.82-1.09) H 03/31/18 05:20 Assessment/Plan Problem List - Problems (1) Strangulated inguinal hernia Pulmonary evaluation - weaning today? GI Evaluation - Tbili 3.5, 3.6 BP goal MAP 65-70, has a stapled small bowel anastomosis avoid lwo flow states will follow Code(s): K40.30 - UNIL INGUINAL HERNIA, W OBST, W/O GANGR, NOT SPCF RECUR (2) Incarcerated left inguinal hernia Code(s): K40.30 - UNIL INGUINAL HERNIA, W OBST, W/O GANGR, NOT SPCF RECUR (3) BPH (benign prostatic hyperplasia) Code(s): N40.0 - BENIGN PROSTATIC HYPERPLASIA WITHOUT LOWER URINRY TRACT SYMP Qualifiers: Lower urinary tract symptom presence: symptoms present Lower urinary tract symptom detail: urinary frequency Qualified Code(s): N40.1 - Benign prostatic hyperplasia with lower urinary tract symptoms; R35.0 - Frequency of micturition ; R35.0 - Frequency of micturition (4) DDD (degenerative disc disease), cervical Code(s): M50.30 - OTHER CERVICAL DISC DEGENERATION, UNSP CERVICAL REGION (5) SBO (small bowel obstruction) Code(s): K56.609 - UNSP INTESTNL OBST, UNSP TO PARTIAL VERSUS COMPLETE OBST (6) Aspiration pneumonia of both lower lobes due to gastric secretions Code(s): J69.0 - PNEUMONITIS DUE TO INHALATION OF FOOD AND VOMIT r/o acalculus choley plan continue abx monitor wbc close watch chest pt rest as per icu xray labs noted patient improving cc 40 min
[2018-04-04] MEDS: MEROPENEM 1 GM in DEXTROSE 5%-WATER 100 ML IVPB SCH ×3 (01:01→18:13)
[2018-04-04 06:10] LABS: HEMATOCRIT 31.4 % (35.4-49); HEMOGLOBIN 10.4 GM/dL (11.7-16.9); MCH 30.1 pg (25.7-33.7); MCHC 33.1 g/dl (32.0-35.9); MEAN PLT VOLUME 9.7 fl (7.5-11.1); PLATELET COUNT 541 K/MM3 (134-434); RBC 3.45 M/mm3 (4.00-5.60); RDW 15.5 % (11.9-15.9); WHITE BLOOD COUNT 11.7 K/mm3 (4.0-10.0)
[2018-04-04] MEDS: INSULIN SLIDING SCALE (NOVOLOG) 1 VIAL SQ SCH ×4 (06:35→21:46)
[2018-04-04 06:43] LABS: ALBUMIN 1.3 g/dl (3.4-5.0); ALK PHOS 204 U/L (45-117); ANION GAP 8 (8-16); BILIRUBIN,TOTAL 0.9 mg/dL (0.2-1.0); BLOOD UREA NITROGEN 26 mg/dL (7-18); CALCIUM 7.9 mg/dL (8.5-10.1); CHLORIDE 106 mmol/L (98-107); CO2 23 mmol/L (21-32); CREATININE 0.4 mg/dL (0.7-1.3); GLUCOSE,RANDOM 182 mg/dL (74-106); MAGNESIUM 2.4 mg/dL (1.8-2.4); PHOSPHOROUS 2.4 mg/dL (2.5-4.9); POTASSIUM 4.5 mmol/L (3.5-5.1); SGOT/AST 37 U/L (15-37); SGPT/ALT 70 U/L (12-78); SODIUM 137 mmol/L (136-145); TOT PROT 5.6 g/dl (6.4-8.2)
--- NOTE | 2018-04-04 09:03 | PN ---
Progress Note (short form) - Note Progress Note: Patient seen and examined in the ICU. Remains extubated, on HFNC O2 (50 liters / 35% FiO2). Awake and interactive, voice is still very weak. No pressors. CXR: Left base not included in the film / no gross change Intake & Output 04/01/18 04/02/18 04/03/18 04/04/18 23:59 23:59 23:59 23:59 Intake Total 2268 1177 2510 732 Output Total 2310 2885 2520 1010 Balance -42 -1708 -10 -278 Weight 154 lb 2 oz 154 lb 5.177 oz 149 lb 9.6 oz 148 lb Last Vital Signs Temp Pulse Resp BP Pulse Ox 98.4 F 102 H 18 117/63 98 04/04/18 06:00 04/04/18 08:00 04/04/18 08:08 04/04/18 08:00 04/04/18 08:08 Active Medications Acetaminophen (Tylenol Oral Solution -) 650 mg PO Q6H PRN PRN Reason: FEVER Last Admin: 04/02/18 04:25 Dose: 650 mg Amino Acids (Prosource No Carb Liquid Pkt) 30 ml PO DAILY [facility] Last Admin: 04/03/18 09:43 Dose: 30 ml Artificial Tears (Artificial Tears) 1 drop OU BID PRN PRN Reason: DRY EYES Last Admin: 03/30/18 10:34 Dose: 1 drop Meropenem 1 gm/ Dextrose 100 mls @ 200 mls/hr IVPB Q8H-IV [facility] Last Admin: 04/04/18 01:01 Dose: 200 mls/hr HEPARIN SOD,PORK IN 0.45% NACL (Heparin-1/2ns 25,000 Units/500) 25,000 units in 500 mls @ 20 mls/hr IVPB TITR [facility]; Protocol Last Admin: 04/03/18 17:18 Dose: 1,300 units/hr, 26 mls/hr Insulin Aspart (Novolog Vial Sliding Scale -) 1 vial SQ ACHS [facility]; Protocol Last Admin: 04/04/18 06:35 Dose: 2 units Ondansetron HCl (Zofran Injection) 4 mg IVPUSH Q6H PRN PRN Reason: NAUSEA Ranitidine HCl (Zantac Oral Solution -) 150 mg NGT DAILY [facility] Last Admin: 04/03/18 11:57 Dose: Not Given Gen: Awake and interactive in HFNC O2 Heart: RRR Lung: scattered rhonchi Abd: soft, nontender, (+) BS Ext: less edema LE / LUE > RUE Laboratory Results - last 24 hr 04/03/18 04/03/18 04/03/18 11:40 17:15 23:23 WBC RBC Hgb Hct MCV MCH MCHC RDW Plt Count MPV PTT (Actin FS) Sodium Potassium Chloride Carbon Dioxide Anion Gap BUN Creatinine Creat Clearance w eGFR POC Glucometer [phone] 185.13505 Random Glucose Calcium Phosphorus Magnesium Total Bilirubin AST ALT Alkaline Phosphatase Total Protein Albumin 04/04/18 04/04/18 04/04/18 05:30 05:30 05:30 WBC 11.7 H RBC 3.45 L Hgb 10.4 L Hct 31.4 L MCV 91.0 MCH 30.1 MCHC 33.1 RDW 15.5 Plt Count 541 H MPV 9.7 PTT (Actin FS) 56.1 H Sodium 137 Potassium 4.5 Chloride 106 Carbon Dioxide 23 Anion Gap 8 BUN 26 H Creatinine 0.4 L D Creat Clearance w eGFR > 60 POC Glucometer Random Glucose 182 H Calcium 7.9 L Phosphorus 2.4 L D Magnesium 2.4 Total Bilirubin 0.9 AST 37 D ALT 70 Alkaline Phosphatase 204 H Total Protein 5.6 L Albumin 1.3 L ASSESSMENT AND PLAN: CIP Acute Hypoxic Respiratory Failure Aspiration Pneumonia ARDS resolving Incarcerated Inguinal Hernia s/p ex-lap/segmental terminal ileum resection/primary anastamosis 03/13 Suspected Acalculus Cholecystitis s/p percutaneous cholecystostomy Septic Shock resolving Acute Kidney Injury improving Lactic Acidosis resolved New onset Paroxysmal Atrial Fibrillation Diverticulosis BPH - Pulmonary toilet / Chest PT - Wean HFNC O2 as tolerated - antibiotics per ID - continue anticoagulation - Daily assessment for need for lasix: hold today - monitor urine output, creatinine - Follow CXR - enteral feeds : Will need PEG - DVT/GI prophylaxis - LTAC evaluation - Cool compresses LLUE - continue ICU monitoring Dr Mroeno Critical care time spent in reviewing chart, evaluating patient and formulating plan 35 min
[2018-04-04] MEDS ORDERED: PT OWN MED DRAWER 7, Y5N ONE ×2 (09:26→14:54)
[2018-04-04] MEDS: RANITIDINE HCL 150 MG/10 ML UNIT-DOSE NGT SCH (09:36)
[2018-04-04] MEDS: AMINO ACIDS/PROTEIN HYDROLYS 30 ML LIQUID.PKT PO SCH (09:36)
--- NOTE | 2018-04-04 11:32 | PN ---
Progress Note, Physician Chief Complaint: SBO History of Present Illness: 82 yo male PMH BPH, degernerative disc disease (cervical), diverticulosis, hemorrhoids presented to the ED with abdominal pain and vomiting for on day. He reports that he was weight training yesterday and developed some groin pain. 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 gradually more responsive, intermittent clinical improvement. - Current Medication List Current Medications: Active Medications Acetaminophen (Tylenol Oral Solution -) 650 mg PO Q6H PRN PRN Reason: FEVER Last Admin: 04/02/18 04:25 Dose: 650 mg Amino Acids (Prosource No Carb Liquid Pkt) 30 ml PO DAILY [facility] Last Admin: 04/04/18 09:36 Dose: 30 ml Artificial Tears (Artificial Tears) 1 drop OU BID PRN PRN Reason: DRY EYES Last Admin: 03/30/18 10:34 Dose: 1 drop Meropenem 1 gm/ Dextrose 100 mls @ 200 mls/hr IVPB Q8H-IV [facility] Last Admin: 04/04/18 09:35 Dose: 200 mls/hr HEPARIN SOD,PORK IN 0.45% NACL (Heparin-1/2ns 25,000 Units/500) 25,000 units in 500 mls @ 20 mls/hr IVPB TITR [facility]; Protocol Last Admin: 04/03/18 17:18 Dose: 1,300 units/hr, 26 mls/hr Insulin Aspart (Novolog Vial Sliding Scale -) 1 vial SQ ACHS [facility]; Protocol Last Admin: 04/04/18 06:35 Dose: 2 units Ondansetron HCl (Zofran Injection) 4 mg IVPUSH Q6H PRN PRN Reason: NAUSEA Potassium Phos/Sodium Phos (Phos-Nak Packet -) 1 packet PO TID [facility] Stop: 04/05/18 06:01 Ranitidine HCl (Zantac Oral Solution -) 150 mg NGT DAILY [facility] Last Admin: 04/04/18 09:36 Dose: 150 mg - Objective Vital Signs: Vital Signs Temperature 98.4 F 04/04/18 06:00 Pulse Rate 102 H 04/04/18 08:00 Respiratory Rate 18 04/04/18 08:08 Blood Pressure 117/63 04/04/18 08:00 O2 Sat by Pulse Oximetry (%) 98 04/04/18 08:08 Vital Signs Period Temp Pulse Resp BP Sys/Ceballos Pulse Ox Last 24 Hr 98.4 F-99.7 F 69-102 18-28 100-121/53-63 97-99 Intake & Output 04/03/18 04/04/18 04/04/18 23:59 07:59 15:59 Intake Total 1551 732 Output Total 820 1010 Balance 731 -278 Weight 148 lb Intake: IV 431 212 HEPARIN-1/2NS 25,000 406 182 UNITS/500 25,000 units In 500 ml @ 1,000 UNITS/HR 20 mls/hr IVPB TITR [facility]Y Rx#:[id number] lfa 25 30 IVPB 200 100 Tube Feeding 750 350 Tube Irrigant 170 70 Output: Drainage 120 60 Right Upper Abdomen 120 60 Urine 700 950 Scott 700 950 Other: Voiding Method Indwelling Catheter Indwelling Catheter Weight Measurement Method Built in [facility] Constitutional: Yes: No Distress, Calm, Thin Eyes: Yes: Conjunctiva Clear HENT: Yes: Atraumatic, Normocephalic Neck: Yes: Supple, Trachea Midline Cardiovascular: Yes: Regular Rate and Rhythm, S1, S2 Respiratory: Yes: Regular, CTA Bilaterally, On Nasal O2 Gastrointestinal: Yes: Normal Bowel Sounds, Soft ...Rectal Exam: Yes: Deferred Edema: No Edema: LUE: Trace, RUE: Trace, LLE: Trace, RLE: Trace Peripheral Pulses WNL: Yes Peripheral Pulses: Left Doralis Pedis: 2+, Right Dorsalis Pedis: 2+ Wound/Incision: Yes: Clean/Dry, Well Approximated, Open to air Neurological: Yes: Alert Labs: CBC, BMP 04/04/18 05:30 04/04/18 05:30 INR, PTT INR 1.22 (0.82-1.09) H 03/31/18 05:20 Problem List - Problems (1) Strangulated inguinal hernia Assessment/Plan: 82yo male MMP relatively healthy with SBO abdominal pain non reducible LIH, unclear transition point and no clear bowel ischemia identified. Bibasilar pulmonary consolidation and hoarsness may be a sequela of an aspiration. POD#21 s/p Exploratory Laparotomy, segmental ressection of SB and primary stapled anastomosis for strangulated RIH. low grade fevers persists. Patient has soft bowel movements. Extubated on high flow NC. S/p percutaneous cholecystostomy. Surgical gastrostomy being discussed ICU management NGT feeds to goal for IBW Antibiotics per ID Cholecystostomy management per IR Physical Therapy followup GI and DVT prophylaxsis D/C planning to technician terminal and repeater acute care facility to be determined will follow peripherally This patient is critically ill. Time spent reviewing chart, examining patient, talking with providers and/or family and documentation is 35 minutes Code(s): K40.30 - UNIL INGUINAL HERNIA, W OBST, W/O GANGR, NOT SPCF RECUR (2) Incarcerated left inguinal hernia Code(s): K40.30 - UNIL INGUINAL HERNIA, W OBST, W/O GANGR, NOT SPCF RECUR (3) BPH (benign prostatic hyperplasia) Code(s): N40.0 - BENIGN PROSTATIC HYPERPLASIA WITHOUT LOWER URINRY TRACT SYMP Qualifiers: Lower urinary tract symptom presence: symptoms present Lower urinary tract symptom detail: urinary frequency Qualified Code(s): N40.1 - Benign prostatic hyperplasia with lower urinary tract symptoms; R35.0 - Frequency of micturition ; R35.0 - Frequency of micturition (4) DDD (degenerative disc disease), cervical Code(s): M50.30 - OTHER CERVICAL DISC DEGENERATION, UNSP CERVICAL REGION (5) SBO (small bowel obstruction) Code(s): K56.609 - UNSP INTESTNL OBST, UNSP TO PARTIAL VERSUS COMPLETE OBST (6) Aspiration pneumonia of both lower lobes due to gastric secretions Code(s): J69.0 - PNEUMONITIS DUE TO INHALATION OF FOOD AND VOMIT
[2018-04-04] MEDS: HEPARIN SOD,PORK IN 0.45% NACL 25,000 UNITS/500 ML INFUS.BAG IVPB SCH (14:58)
[2018-04-04] MEDS: NAPH,MB-DB/K PH,MBDB POWDER PACKET PO SCH ×2 (14:58→21:41)
--- NOTE | 2018-04-04 15:29 | PN ---
Progress Note, Physician History of Present Illness: Pt seen and examined. Chart reviewed, events noted. Currently afebrile, remains weak. - Current Medication List Current Medications: Active Medications Acetaminophen (Tylenol Oral Solution -) 650 mg PO Q6H PRN PRN Reason: FEVER Last Admin: 04/02/18 04:25 Dose: 650 mg Amino Acids (Prosource No Carb Liquid Pkt) 30 ml PO DAILY [facility] Last Admin: 04/04/18 09:36 Dose: 30 ml Artificial Tears (Artificial Tears) 1 drop OU BID PRN PRN Reason: DRY EYES Last Admin: 03/30/18 10:34 Dose: 1 drop Meropenem 1 gm/ Dextrose 100 mls @ 200 mls/hr IVPB Q8H-IV [facility] Last Admin: 04/04/18 09:35 Dose: 200 mls/hr HEPARIN SOD,PORK IN 0.45% NACL (Heparin-1/2ns 25,000 Units/500) 25,000 units in 500 mls @ 20 mls/hr IVPB TITR [facility]; Protocol Last Admin: 04/04/18 14:58 Dose: 1,300 units/hr, 26 mls/hr Insulin Aspart (Novolog Vial Sliding Scale -) 1 vial SQ ACHS [facility]; Protocol Last Admin: 04/04/18 11:57 Dose: 2 units Ondansetron HCl (Zofran Injection) 4 mg IVPUSH Q6H PRN PRN Reason: NAUSEA Potassium Phos/Sodium Phos (Phos-Nak Packet -) 1 packet PO TID [facility] Stop: 04/05/18 06:01 Last Admin: 04/04/18 14:58 Dose: 1 packet Ranitidine HCl (Zantac Oral Solution -) 150 mg NGT DAILY [facility] Last Admin: 04/04/18 09:36 Dose: 150 mg - Objective Vital Signs: Vital Signs Temperature 98.4 F 04/04/18 06:00 Pulse Rate 102 H 04/04/18 12:00 Respiratory Rate 30 H 04/04/18 12:00 Blood Pressure 116/60 04/04/18 12:00 O2 Sat by Pulse Oximetry (%) 98 04/04/18 08:08 Constitutional: Yes: No Distress Cardiovascular: Yes: Tachycardia Respiratory: Yes: Rhonchi Gastrointestinal: Yes: Normal Bowel Sounds, Soft, Other (Rt cholecystostomy drain with bilious fluid) Genitourinary: Yes: Scott Present Wound/Incision: Yes: Clean/Dry (Abd midline wound healed) Neurological: Yes: Weakness, Other (arousable) Labs: CBC, BMP 04/04/18 05:30 04/04/18 05:30 INR, PTT INR 1.22 (0.82-1.09) H 03/31/18 05:20 Microbiology 03/30/18 16:31 Stool Clostridium difficile Antigen (SHANE) - Final 03/30/18 16:31 Stool Clostridium difficile Toxin Assay - Final 03/20/18 11:15 Peritoneal Fluid AFB Smear Concentration - Final 03/20/18 11:15 Peritoneal Fluid Mycobacterial Culture - Preliminary 03/20/18 11:15 Peritoneal Fluid Gram Stain - Final 03/20/18 11:15 Peritoneal Fluid Body Fluid Culture - Final NO GROWTH OF AEROBIC ORGANISMS AFTER 48 HOURS INCUBATION 03/20/18 11:15 Peritoneal Fluid Anaerobic Culture - Final NO ANAEROBES WERE ISOLATED 03/20/18 11:15 Peritoneal Fluid LAN Preparation - Preliminary 03/20/18 11:15 Peritoneal Fluid Fungal Culture - Preliminary 03/15/18 11:40 Blood - Central Line Blood Culture - Final NO GROWTH AFTER 5 DAYS INCUBATION 03/15/18 11:30 Blood - Central Line Blood Culture - Final NO GROWTH AFTER 5 DAYS INCUBATION 03/15/18 11:14 Blood - Peripheral Venous Blood Culture - Final NO GROWTH AFTER 5 DAYS INCUBATION 03/15/18 11:14 Blood - Peripheral Venous Blood Culture - Final NO GROWTH AFTER 5 DAYS INCUBATION 03/15/18 11:00 Sputum - Endotrachea Suction/Ventilator Gram Stain - Final 03/15/18 11:00 Sputum - Endotrachea Suction/Ventilator Sputum Culture - Final Klebsiella Oxytoca Serratia Marcescens Enterococcus Faecalis 03/16/18 16:00 Urine - Urine Scott Urine Culture - Final NO GROWTH OBTAINED 03/12/18 14:51 Blood - Peripheral Venous Blood Culture - Final NO GROWTH AFTER 5 DAYS INCUBATION 03/12/18 14:51 Blood - Peripheral Venous Blood Culture - Final NO GROWTH AFTER 5 DAYS INCUBATION 03/13/18 02:25 Peritoneal Fluid Gram Stain - Final 03/13/18 02:25 Peritoneal Fluid Body Fluid Culture - Final NO GROWTH OF AEROBIC ORGANISMS AFTER 48 HOURS INCUBATION 03/13/18 02:25 Peritoneal Fluid Anaerobic Culture - Final NO ANAEROBES WERE ISOLATED 03/12/18 22:12 Urine For Antigen Detection Legionella Antigen - Final 03/12/18 22:12 Urine For Antigen Detection Streptococcus pneumoniae Antigen (M - Final - ....Imaging Chest X-ray: Report Reviewed Problem List - Problems (1) Aspiration pneumonia of both lower lobes due to gastric secretions Code(s): J69.0 - PNEUMONITIS DUE TO INHALATION OF FOOD AND VOMIT (2) BPH (benign prostatic hyperplasia) Code(s): N40.0 - BENIGN PROSTATIC HYPERPLASIA WITHOUT LOWER URINRY TRACT SYMP Qualifiers: Lower urinary tract symptom presence: symptoms present Lower urinary tract symptom detail: urinary frequency Qualified Code(s): N40.1 - Benign prostatic hyperplasia with lower urinary tract symptoms; R35.0 - Frequency of micturition ; R35.0 - Frequency of micturition (3) DDD (degenerative disc disease), cervical Code(s): M50.30 - OTHER CERVICAL DISC DEGENERATION, UNSP CERVICAL REGION (4) Incarcerated left inguinal hernia Code(s): K40.30 - UNIL INGUINAL HERNIA, W OBST, W/O GANGR, NOT SPCF RECUR (5) SBO (small bowel obstruction) Code(s): K56.609 - UNSP INTESTNL OBST, UNSP TO PARTIAL VERSUS COMPLETE OBST (6) Strangulated inguinal hernia Code(s): K40.30 - UNIL INGUINAL HERNIA, W OBST, W/O GANGR, NOT SPCF RECUR Assessment/Plan Aspiration Pneumonia / hypoxic respiratory failure Septic Shock - improved Incarcerated Inguinal Hernia SBO s/p Ex-lap w/ resection/primary anastomosis Possible Acalculus Cholecystitis s/p cholecystostomy Diverticulosis BPH ANATOLIY Paroxysmal Atrial Fibrillation - pt is afebrile, remains weak - continue Meropenem - appears to be slowly improving - on NC O2 - critical care following - continue monitor temps/wbc - labs noted cc: 40 min
[2018-04-04] MEDS: ACETAMINOPHEN 650 MG/20.3 ML ORAL SOLUTION (CUPS) PO PRN (15:59)
--- NOTE | 2018-04-04 16:35 | PN ---
Progress Note (short form) - Note Progress Note: Chief Complaint: septic shock History of Present Illness: more awake, alert. appears comfortable. no overnight events. Denies sob or discomfort. appears to be tender in upper extremiteis. Resp rate recordings high, but patient not in respiratory distress --> RR monitor repositioned. Current Medications Acetaminophen (Tylenol Oral Solution -) 650 mg PO Q6H PRN PRN Reason: FEVER Last Admin: 04/04/18 15:59 Dose: 650 mg Amino Acids (Prosource No Carb Liquid Pkt) 30 ml PO DAILY [facility] Last Admin: 04/04/18 09:36 Dose: 30 ml Artificial Tears (Artificial Tears) 1 drop OU BID PRN PRN Reason: DRY EYES Last Admin: 03/30/18 10:34 Dose: 1 drop Meropenem 1 gm/ Dextrose 100 mls @ 200 mls/hr IVPB Q8H-IV [facility] Last Admin: 04/04/18 09:35 Dose: 200 mls/hr HEPARIN SOD,PORK IN 0.45% NACL (Heparin-1/2ns 25,000 Units/500) 25,000 units in 500 mls @ 20 mls/hr IVPB TITR [facility]; Protocol Last Admin: 04/04/18 14:58 Dose: 1,300 units/hr, 26 mls/hr Insulin Aspart (Novolog Vial Sliding Scale -) 1 vial SQ ACHS [facility]; Protocol Last Admin: 04/04/18 11:57 Dose: 2 units Ondansetron HCl (Zofran Injection) 4 mg IVPUSH Q6H PRN PRN Reason: NAUSEA Potassium Phos/Sodium Phos (Phos-Nak Packet -) 1 packet PO TID [facility] Stop: 04/05/18 06:01 Last Admin: 04/04/18 14:58 Dose: 1 packet Ranitidine HCl (Zantac Oral Solution -) 150 mg NGT DAILY [facility] Last Admin: 04/04/18 09:36 Dose: 150 mg Vital Signs - 24 hr 04/03/18 04/03/18 04/03/18 18:00 18:23 21:00 Temperature Pulse Rate 98 H Respiratory 23 22 Rate Blood Pressure 117/53 O2 Sat by Pulse 99 99 Oximetry (%) 04/03/18 04/03/18 04/04/18 21:35 22:00 00:00 Temperature 99.2 F Pulse Rate 96 H 97 H 98 H Respiratory 22 20 Rate Blood Pressure 109/58 100/53 O2 Sat by Pulse 99 99 Oximetry (%) 04/04/18 04/04/18 04/04/18 02:00 02:04 04:00 Temperature 99.7 F H Pulse Rate 76 92 H 69 Respiratory 20 20 Rate Blood Pressure 121/61 113/56 O2 Sat by Pulse 98 Oximetry (%) 04/04/18 04/04/18 04/04/18 04:11 05:47 06:00 Temperature 98.4 F Pulse Rate 100 H 99 H Respiratory 18 Rate Blood Pressure 111/59 O2 Sat by Pulse 98 99 Oximetry (%) 04/04/18 04/04/18 04/04/18 07:00 08:00 08:08 Temperature Pulse Rate 102 H Respiratory 26 H 18 Rate Blood Pressure 117/63 O2 Sat by Pulse 98 98 Oximetry (%) 04/04/18 04/04/18 04/04/18 10:00 12:00 16:03 Temperature Pulse Rate 92 H 102 H Respiratory 26 H 30 H Rate Blood Pressure 118/65 116/60 O2 Sat by Pulse 97 Oximetry (%) 04/04/18 16:04 Temperature Pulse Rate 105 H Respiratory Rate Blood Pressure O2 Sat by Pulse 97 Oximetry (%) Intake & Output 04/02/18 04/03/18 04/04/18 04/05/18 07:59 07:59 07:59 07:59 Intake Total 1554 1694 2283 1200 Output Total 2760 2485 2730 980 [id number] -791 -447 220 Weight 154 lb 5.177 oz 149 lb 9.6 oz 148 lb nad no jvd, on HFNC trace bibasilar rales, poor eff rrr nl s1s2 no mrg + bs soft nt nd no e/c/c no jaundice diaphoresis alert Labs: CBC, BMP 04/04/18 05:30 04/04/18 05:30 Laboratory Tests 04/04/18 05:30 Magnesium 2.4 Total Bilirubin 0.9 AST 37 D ALT 70 Alkaline Phosphatase 204 H Albumin 1.3 L tele: SR/sinus tach ecg: sr, nl intervals, no ischemic changes head ct: no acute pathology echo 02/2018: nl lv/rv, mild mr/tr/ar cxr: chf, slightly improved cxr 03/25: no sig change cxr 04/04: ng tube. some increased markings at left base. Assessment/Plan a/p: 82 m hx gerd, bph, here with abd pain/sepsis - found to have sbo, now s/p OR hospital course c/b new afib. septic shock/sbo/cholecystitis/asp pna: -s/p ex-lap/segmental terminal ileum resection/primary anastamosis 03/13 -Suspected Acalculus Cholecystitis s/p percutaneous cholecystostomy 03/20 -asp pna -now extubated, off pressors. However, +++ weakness. bp stable. cont abx per ID -receiving IV lasix prn per CXR appearing congested. Last lasix 03/31. new pafib --> conversion to sr: -new onset here. rate controlled w/o meds. 03/25 converted to sr-->remains in sinus -echo unremarkable -chadsvasc warrants ac. continue UFH gtt. Has plan for PEG. Will likely transition to noac after peg placement.
--- NOTE | 2018-04-04 19:36 | PN ---
Physical Exam: SUBJECTIVE: Patient seen and examined Patient is feeling better, no new changes. OBJECTIVE: Vital Signs Temperature 99.4 F 04/04/18 14:00 Pulse Rate 88 04/04/18 18:00 Respiratory Rate 23 04/04/18 18:00 Blood Pressure 115/62 04/04/18 18:00 O2 Sat by Pulse Oximetry (%) 97 04/04/18 16:04 GENERAL: NAD, alert. HEENT: KITTY, EOMI, NG in place, MMM Neck: no JVD LUNGS: Improved lung sounds with better aeration. On high flow O2 50L/min. 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 EXTREMITIES: 2+ pulses, warm, minimal ankle edema SKIN: Warm, dry, no rash or lesions currently CBCD WBC 11.7 K/mm3 (4.0-10.0) H 04/04/18 05:30 RBC 3.45 M/mm3 (4.00-5.60) L 04/04/18 05:30 Hgb 10.4 GM/dL (11.7-16.9) L 04/04/18 05:30 Hct 31.4 % (35.4-49) L 04/04/18 05:30 MCV 91.0 fl (80-96) 04/04/18 05:30 MCHC 33.1 g/dl (32.0-35.9) 04/04/18 05:30 RDW 15.5 % (11.9-15.9) 04/04/18 05:30 Plt Count 541 K/MM3 (134-434) H 04/04/18 05:30 MPV 9.7 fl (7.5-11.1) 04/04/18 05:30 CMP Sodium 137 mmol/L (136-145) 04/04/18 05:30 Potassium 4.5 mmol/L (3.5-5.1) 04/04/18 05:30 Chloride 106 mmol/L (98-107) 04/04/18 05:30 Carbon Dioxide 23 mmol/L (21-32) 04/04/18 05:30 Anion Gap 8 (8-16) 04/04/18 05:30 BUN 26 mg/dL (7-18) H 04/04/18 05:30 Creatinine 0.4 mg/dL (0.7-1.3) L D 04/04/18 05:30 Creat Clearance w eGFR > 60 (>60) 04/04/18 05:30 Random Glucose 182 mg/dL (74-106) H 04/04/18 05:30 Calcium 7.9 mg/dL (8.5-10.1) L 04/04/18 05:30 Total Bilirubin 0.9 mg/dL (0.2-1.0) 04/04/18 05:30 AST 37 U/L (15-37) D 04/04/18 05:30 ALT 70 U/L (12-78) 04/04/18 05:30 Alkaline Phosphatase 204 U/L (45-117) H 04/04/18 05:30 Total Protein 5.6 g/dl (6.4-8.2) L 04/04/18 05:30 Albumin 1.3 g/dl (3.4-5.0) L 04/04/18 05:30 CARDIAC ENZYMES Creatine Kinase 327 IU/L (39-308) H 03/19/18 20:09 Troponin I 0.03 ng/ml (0.00-0.05) D 03/19/18 20:09 Active Medications Generic Name Dose Route Start Last Admin Trade Name Freq PRN Reason Stop Dose Admin Acetaminophen 650 mg 03/27/18 13:00 04/04/18 15:59 Tylenol Oral Solution - PO 650 mg Q6H PRN Administration FEVER Amino Acids 30 ml 03/24/18 13:00 04/04/18 09:36 Prosource No Carb Liquid Pkt PO 30 ml DAILY JUDY Administration Artificial Tears 1 drop 03/24/18 10:59 03/30/18 10:34 Artificial Tears OU 1 drop BID PRN Administration DRY EYES Meropenem 1 gm/ Dextrose 100 mls @ 200 mls/hr 03/19/18 18:00 04/04/18 18:13 IVPB 200 mls/hr Q8H-IV JUDY Administration HEPARIN SOD,PORK IN 0.45% NACL 25,000 units in 500 mls @ 20 mls/hr 03/20/18 14 :15 04/04/18 14:58 Heparin-1/2ns 25,000 Units/500 IVPB 1,300 units/hr TITR JUDY 26 mls/hr Administration Protocol 1,000 UNITS/HR Insulin Aspart 1 vial 03/23/18 11:00 04/04/18 18:13 Novolog Vial Sliding Scale - SQ 4 units ACHS JUDY Administration Protocol Ondansetron HCl 4 mg 03/13/18 04:30 Zofran Injection IVPUSH Q6H PRN NAUSEA Potassium Phos/Sodium Phos 1 packet 04/04/18 14:00 04/04/18 14:58 Phos-Nak Packet - PO 04/05/18 06:01 1 packet TID JUDY Administration Ranitidine HCl 150 mg 04/03/18 11:45 04/04/18 09:36 Zantac Oral Solution - NGT 150 mg DAILY JUDY Administration Home Medications Medication Instructions Recorded Finasteride 5 mg PO DAILY 03/12/18 Omeprazole 20 mg PO DAILY 03/12/18 Tamsulosin HCl 0.4 mg PO DAILY 03/12/18 ASSESSMENT/PLAN: Patient is an 82 y/o male with h/o DJD, GERD, diverticulosis who presented with abdominal pain and was found to have SBO with bowel ischemia , with incarcerated hernia and developed acute respiratory failure and septic shock. # Acute hypoxic respirstory failure s/p extubation due to severe sepsis and b/l PNA /ARDS. continue IV antibiotic. # Septic shock. resolved on Iv Mereponem continue as per ID # S/p Exploratory Laparotomy, segmental terminal ileum ressection with primary anastomosis. on 03/13/2018. Ischemic bowel and incarcerated inguinal hernia repair. # s/p cholecystostomy tube ,surgery on the case Dr. Nance.and as per Radiology to keep it for 6-8 weeks, still draining. Also Peg tube placement ; radiology is consulted , Peg tube placement , earliest will be on Friday. #New onset A flutter/A fib : now in sinus rhythm. On heparin gtt. continue. will switch to po AC once patient is able to take po , # R IJ thrombus /DVT: on heparin gtt continue # NG-tube feeding ,patient is going for Peg tube feeding on Friday by IR. discussed with . DVT Px: heparin Visit type - Emergency Visit Emergency Visit: Yes ED Registration Date: 03/12/18 Care time: The patient presented to the Emergency Department on the above date and was hospitalized for further evaluation of their emergent condition. - New Patient This patient is new to me today: No - Critical Care Critical Care patient: No - Discharge Referral Referred to [facility] No
[2018-04-05] MEDS ORDERED: PT OWN MED DRAWER 7, Y5N ONE ×4 (01:05→21:56)
[2018-04-05] MEDS: MEROPENEM 1 GM in DEXTROSE 5%-WATER 100 ML IVPB SCH ×3 (01:08→16:59)
[2018-04-05] MEDS: ACETAMINOPHEN 650 MG/20.3 ML ORAL SOLUTION (CUPS) PO PRN (06:35)
[2018-04-05] MEDS: INSULIN SLIDING SCALE (NOVOLOG) 1 VIAL SQ SCH ×4 (06:35→23:12)
[2018-04-05] MEDS: NAPH,MB-DB/K PH,MBDB POWDER PACKET PO SCH (06:35)
[2018-04-05 06:38] LABS: HEMATOCRIT 30.5 % (35.4-49); HEMOGLOBIN 10.2 GM/dL (11.7-16.9); MCH 30.4 pg (25.7-33.7); MCHC 33.6 g/dl (32.0-35.9); MEAN CELL VOLUME 90.4 fl (80-96); MEAN PLT VOLUME 10.1 fl (7.5-11.1); PLATELET COUNT 488 K/MM3 (134-434); RBC 3.37 M/mm3 (4.00-5.60); RDW 15.2 % (11.9-15.9); WHITE BLOOD COUNT 11.6 K/mm3 (4.0-10.0)
[2018-04-05 07:05] LABS: ALBUMIN 1.3 g/dl (3.4-5.0); ALK PHOS 238 U/L (45-117); ANION GAP 7 (8-16); BILIRUBIN,TOTAL 1.1 mg/dL (0.2-1.0); BLOOD UREA NITROGEN 29 mg/dL (7-18); CHLORIDE 105 mmol/L (98-107); CO2 23 mmol/L (21-32); CREATININE 0.4 mg/dL (0.7-1.3); GLUCOSE,RANDOM 169 mg/dL (74-106); MAGNESIUM 2.3 mg/dL (1.8-2.4); POTASSIUM 4.7 mmol/L (3.5-5.1); SGOT/AST 60 U/L (15-37); SGPT/ALT 89 U/L (12-78); SODIUM 135 mmol/L (136-145); TOT PROT 5.6 g/dl (6.4-8.2)
[2018-04-05] MEDS: AMINO ACIDS/PROTEIN HYDROLYS 30 ML LIQUID.PKT PO SCH (09:16)
[2018-04-05] MEDS: RANITIDINE HCL 150 MG/10 ML UNIT-DOSE NGT SCH (09:17)
--- NOTE | 2018-04-05 09:19 | PN ---
Progress Note (short form) - Note Progress Note: Patient seen and examined in the ICU. Remains extubated, on HFNC O2 (45 liters / 35% FiO2). Awake and interactive, voice is still very weak. No pressors. CXR: No gross change in basilar atelectasis Intake & Output 04/02/18 04/03/18 04/04/18 04/05/18 23:59 23:59 23:59 23:59 Intake Total 1177 2510 2462 702 Output Total 2885 2520 2115 150 Balance -1708 -10 347 552 Weight 154 lb 5.177 oz 149 lb 9.6 oz 148 lb 145 lb 4 oz Last Vital Signs Temp Pulse Resp BP Pulse Ox 99.8 F H 99 H 24 112/71 98 04/05/18 06:00 04/05/18 06:00 04/05/18 06:00 04/05/18 06:00 04/05/18 06:49 Active Medications Acetaminophen (Tylenol Oral Solution -) 650 mg PO Q6H PRN PRN Reason: FEVER Last Admin: 04/05/18 06:35 Dose: 650 mg Amino Acids (Prosource No Carb Liquid Pkt) 30 ml PO DAILY JUDY Last Admin: 04/04/18 09:36 Dose: 30 ml Artificial Tears (Artificial Tears) 1 drop OU BID PRN PRN Reason: DRY EYES Last Admin: 03/30/18 10:34 Dose: 1 drop Meropenem 1 gm/ Dextrose 100 mls @ 200 mls/hr IVPB Q8H-IV JUDY Last Admin: 04/05/18 01:08 Dose: 200 mls/hr HEPARIN SOD,PORK IN 0.45% NACL (Heparin-1/2ns 25,000 Units/500) 25,000 units in 500 mls @ 20 mls/hr IVPB TITR JUDY; Protocol Last Titration: 04/05/18 08:33 Dose: 1,300 units/hr, 26 mls/hr Insulin Aspart (Novolog Vial Sliding Scale -) 1 vial SQ ACHS JUDY; Protocol Last Admin: 04/05/18 06:35 Dose: 2 units Ondansetron HCl (Zofran Injection) 4 mg IVPUSH Q6H PRN PRN Reason: NAUSEA Ranitidine HCl (Zantac Oral Solution -) 150 mg NGT DAILY JUDY Last Admin: 04/04/18 09:36 Dose: 150 mg Gen: Awake and interactive in HFNC O2 Heart: RRR Lung: scattered rhonchi Abd: soft, nontender, (+) BS Ext: less edema LE / LUE > RUE Laboratory Results - last 24 hr 04/04/18 04/04/18 04/04/18 11:21 18:09 21:45 WBC RBC Hgb Hct MCV MCH MCHC RDW Plt Count MPV PTT (Actin FS) Sodium Potassium Chloride Carbon Dioxide Anion Gap BUN Creatinine Creat Clearance w eGFR POC Glucometer 185.38995 241.23075 143.88297 Random Glucose Calcium Magnesium Total Bilirubin AST ALT Alkaline Phosphatase Total Protein Albumin 04/05/18 04/05/18 04/05/18 05:30 05:30 05:30 WBC 11.6 H RBC 3.37 L Hgb 10.2 L Hct 30.5 L MCV 90.4 MCH 30.4 MCHC 33.6 RDW 15.2 Plt Count 488 H MPV 10.1 PTT (Actin FS) 54.6 H Sodium 135 L Potassium 4.7 Chloride 105 Carbon Dioxide 23 Anion Gap 7 L BUN 29 H Creatinine 0.4 L Creat Clearance w eGFR > 60 POC Glucometer Random Glucose 169 H Calcium 8.0 L Magnesium 2.3 Total Bilirubin 1.1 H D AST 60 H D ALT 89 H D Alkaline Phosphatase 238 H Total Protein 5.6 L Albumin 1.3 L 04/05/18 05:48 WBC RBC Hgb Hct MCV MCH MCHC RDW Plt Count MPV PTT (Actin FS) Sodium Potassium Chloride Carbon Dioxide Anion Gap BUN Creatinine Creat Clearance w eGFR POC Glucometer [phone] Random Glucose Calcium Magnesium Total Bilirubin AST ALT Alkaline Phosphatase Total Protein Albumin ASSESSMENT AND PLAN: CIP Acute Hypoxic Respiratory Failure Aspiration Pneumonia ARDS resolving Incarcerated Inguinal Hernia s/p ex-lap/segmental terminal ileum resection/primary anastamosis 03/13 Suspected Acalculus Cholecystitis s/p percutaneous cholecystostomy Septic Shock resolving Acute Kidney Injury improving Lactic Acidosis resolved New onset Paroxysmal Atrial Fibrillation Diverticulosis BPH - Pulmonary toilet / Chest PT - Wean HFNC O2 as tolerated - Antibiotics per ID - IV Heparin - Daily assessment for need for lasix: hold today - monitor urine output, creatinine - Follow CXR - enteral feeds : Plan for PEG in AM by IR - DVT/GI prophylaxis - LTAC evaluation - Cool compresses LUE - Continue ICU monitoring Dr Moreno Critical care time spent in reviewing chart, evaluating patient and formulating plan 35 min
--- NOTE | 2018-04-05 09:25 | PN ---
<Mukul White - Last Filed: 04/05/18 12:09> Physical Exam: SUBJECTIVE: No acute events overnight. Pt remains alert with slightly tired appearing. Nods to questions and does not have any pain. No other complaints determined at this point OBJECTIVE: Vital Signs Period Temp Pulse Resp BP Sys/Ceballos Pulse Ox Last 24 Hr 97.8 F-99.8 F 88-105 20-30 101-126/54-108 97-99 GENERAL: NAD, slightly tired today, but easily arousable, nodding to yes-no questions HEENT: KITTY, EOMI, L nare NG intact, MMM, lip edema decreasing Neck: no JVD LUNGS: Aeration of lungs down to the bases. no overt rhonchi or rales today. On high flow O2 45L/min. 35% FiO2 HEART: RRR, S1, S2 without murmur ABDOMEN: Soft, nondistended, nontender, C-tube draining brown fluid NEURO: Strength 5/5 in lower extremities, 3/5 handgrip EXTREMITIES: 2+ DP pulses, warm, no edema today SKIN: Warm, dry, no rash or lesions currently Laboratory Results - last 24 hr 04/04/18 04/04/18 04/04/18 11:21 18:09 21:45 WBC RBC Hgb Hct MCV MCH MCHC RDW Plt Count MPV PTT (Actin FS) Sodium Potassium Chloride Carbon Dioxide Anion Gap BUN Creatinine Creat Clearance w eGFR POC Glucometer 185.14024 241.60412 143.74806 Random Glucose Calcium Magnesium Total Bilirubin AST ALT Alkaline Phosphatase Total Protein Albumin 04/05/18 04/05/18 04/05/18 05:30 05:30 05:30 WBC 11.6 H RBC 3.37 L Hgb 10.2 L Hct 30.5 L MCV 90.4 MCH 30.4 MCHC 33.6 RDW 15.2 Plt Count 488 H MPV 10.1 PTT (Actin FS) 54.6 H Sodium 135 L Potassium 4.7 Chloride 105 Carbon Dioxide 23 Anion Gap 7 L BUN 29 H Creatinine 0.4 L Creat Clearance w eGFR > 60 POC Glucometer Random Glucose 169 H Calcium 8.0 L Magnesium 2.3 Total Bilirubin 1.1 H D AST 60 H D ALT 89 H D Alkaline Phosphatase 238 H Total Protein 5.6 L Albumin 1.3 L 04/05/18 05:48 WBC RBC Hgb Hct MCV MCH MCHC RDW Plt Count MPV PTT (Actin FS) Sodium Potassium Chloride Carbon Dioxide Anion Gap BUN Creatinine Creat Clearance w eGFR POC Glucometer [phone] Random Glucose Calcium Magnesium Total Bilirubin AST ALT Alkaline Phosphatase Total Protein Albumin Active Medications Generic Name Dose Route Start Last Admin Trade Name Freq PRN Reason Stop Dose Admin Acetaminophen 650 mg 03/27/18 13:00 04/05/18 06:35 Tylenol Oral Solution - PO 650 mg Q6H PRN Administration FEVER Amino Acids 30 ml 03/24/18 13:00 04/05/18 09:16 Prosource No Carb Liquid Pkt PO 30 ml DAILY JUDY Administration Artificial Tears 1 drop 03/24/18 10:59 03/30/18 10:34 Artificial Tears OU 1 drop BID PRN Administration DRY EYES Meropenem 1 gm/ Dextrose 100 mls @ 200 mls/hr 03/19/18 18:00 04/05/18 09:17 IVPB 200 mls/hr Q8H-IV JUDY Administration HEPARIN SOD,PORK IN 0.45% NACL 25,000 units in 500 mls @ 20 mls/hr 03/20/18 14 :15 04/05/18 08:33 Heparin-1/2ns 25,000 Units/500 IVPB 1,300 units/hr TITR JUDY 26 mls/hr Titration Protocol 1,000 UNITS/HR Insulin Aspart 1 vial 03/23/18 11:00 04/05/18 06:35 Novolog Vial Sliding Scale - SQ 2 units ACHS JUDY Administration Protocol Ondansetron HCl 4 mg 03/13/18 04:30 Zofran Injection IVPUSH Q6H PRN NAUSEA Ranitidine HCl 150 mg 04/03/18 11:45 04/05/18 09:17 Zantac Oral Solution - NGT 150 mg DAILY JUDY Administration ASSESSMENT/PLAN: 1) Acute hypoxic respiratory failure --Resolving, extubated; 03/28 --Continue High flow O2 and maintain maintain SpO2 >90% --Current setting 45L/min and 35% FiO2 --Aspiration precautions: HOB elevated --No need for lasix today 2) Toxic metabolic neuropathy --Continue PT --Awaiting evaluation for LTAC at [place] for intensive physical therapy --Will have to wait to engage in oral medications (can most likely switch to NOACs once able to swallow) --IR PEG tube placement tomorrow --NPO after midnight --Hold heparin gtt ~6hrs beforehand 3) Septic shock 2/2 to bowel ischemia in addition to aspiration PNA --ID on board --Meropenem continues --? monitoring off abx this week at some point; to be discussed with ID 4) Elevated LFTs --Stable --Discussed with IR and will need to keep C-tube for long duration before pulling 5) Atrial flutter/fib --Cardiology consulted --Heparin gtt remains; monitor aPtt; see above regarding NOACs --Echo unremarkable FEN: Fluids: Avoid Electrolyte abnormalities: pseudohypocalcemia (cCa 10.1) Nutrition: NGT feeds ongoing; rate 50 with prosource on board PPX: DVT - Heparin gtt on already GI - Protonix 40mg IVP daily Dispo: Continue ICU monitoring; awaiting LTAC; awaiting PEG tube placement Case discussed with Dr. Soni White, DO - IM PGY-1 Visit type - Emergency Visit Emergency Visit: No - New Patient This patient is new to me today: No - Critical Care Critical Care patient: Yes Total Critical Care Time (in minutes): 35 Critical Care Statement: The care of this patient involved high complexity decision making to prevent further life threatening deterioration of the patient 's condition and/or to evaluate & treat vital organ system(s) failure or risk of failure. <Amber Shafer - Last Filed: 04/05/18 18:45> Physical Exam: Agree with the resident's plan . NPO after midnight going for Peg tube placement by IR in Am will hold heparin drip in am INR to checked in am
--- NOTE | 2018-04-05 11:58 | PN ---
Progress Note, Physician Chief Complaint: SBO History of Present Illness: 82 yo male PMH BPH, degernerative disc disease (cervical), diverticulosis, hemorrhoids presented to the ED with abdominal pain and vomiting for on day. He reports that he was weight training yesterday and developed some groin pain. 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 gradually more responsive, intermittent clinical improvement. - Current Medication List Current Medications: Active Medications Acetaminophen (Tylenol Oral Solution -) 650 mg PO Q6H PRN PRN Reason: FEVER Last Admin: 04/05/18 06:35 Dose: 650 mg Amino Acids (Prosource No Carb Liquid Pkt) 30 ml PO DAILY JUDY Last Admin: 04/05/18 09:16 Dose: 30 ml Artificial Tears (Artificial Tears) 1 drop OU BID PRN PRN Reason: DRY EYES Last Admin: 03/30/18 10:34 Dose: 1 drop Meropenem 1 gm/ Dextrose 100 mls @ 200 mls/hr IVPB Q8H-IV JUDY Last Admin: 04/05/18 09:17 Dose: 200 mls/hr HEPARIN SOD,PORK IN 0.45% NACL (Heparin-1/2ns 25,000 Units/500) 25,000 units in 500 mls @ 20 mls/hr IVPB TITR JUDY; Protocol Last Titration: 04/05/18 08:33 Dose: 1,300 units/hr, 26 mls/hr Insulin Aspart (Novolog Vial Sliding Scale -) 1 vial SQ ACHS JUDY; Protocol Last Admin: 04/05/18 06:35 Dose: 2 units Ondansetron HCl (Zofran Injection) 4 mg IVPUSH Q6H PRN PRN Reason: NAUSEA Ranitidine HCl (Zantac Oral Solution -) 150 mg NGT DAILY JUDY Last Admin: 04/05/18 09:17 Dose: 150 mg - Objective Vital Signs: Vital Signs Temperature 99.8 F H 04/05/18 06:00 Pulse Rate 99 H 04/05/18 07:55 Respiratory Rate 24 04/05/18 06:00 Blood Pressure 112/71 04/05/18 06:00 O2 Sat by Pulse Oximetry (%) 100 04/05/18 07:55 Vital Signs Period Temp Pulse Resp BP Sys/Ceballos Pulse Ox Last 24 Hr 97.8 F-99.8 F 88-105 20-30 101-126/54-108 97-100 Intake & Output 04/04/18 04/05/18 04/05/18 23:59 07:59 15:59 Intake Total 530 702 Output Total 125 150 Balance 405 552 Weight 145 lb 4 oz Intake: IV 130 182 HEPARIN-1/2NS 25,000 130 182 UNITS/500 25,000 units In 500 ml @ 1,000 UNITS/HR 20 mls/hr IVPB TITR JUDY Rx#:[id number] IVPB 100 Tube Feeding 250 350 Tube Irrigant 150 70 Output: Drainage 25 150 Right Upper Abdomen 25 150 Urine 100 External Catheter 100 Other: Voiding Method Diaper Diaper # Unmeasured Voids Void 3 Bowel Movement Yes: diarrhea Weight Measurement Method Built in [facility] Constitutional: Yes: No Distress, Calm, Cachectic, Thin Eyes: Yes: Conjunctiva Clear, EOM Intact HENT: Yes: Atraumatic, Normocephalic Neck: Yes: Supple, Trachea Midline Cardiovascular: Yes: Regular Rate and Rhythm, S2, S3 Respiratory: Yes: Regular, CTA Bilaterally, On Nasal O2 Gastrointestinal: Yes: Normal Bowel Sounds, Soft ...Rectal Exam: Yes: Deferred Genitourinary: No: CVA Tenderness - Left, CVA Tenderness - Right Edema: No Edema: LUE: Trace, RUE: Trace, LLE: Trace, RLE: Trace Peripheral Pulses WNL: Yes Peripheral Pulses: Left Doralis Pedis: 1+, Right Dorsalis Pedis: 1+ Integumentary: Yes: WNL Wound/Incision: Yes: Clean/Dry, Well Approximated Neurological: Yes: Alert, Oriented Psychiatric: Yes: Alert, Oriented Labs: CBC, BMP 04/05/18 05:30 04/05/18 05:30 INR, PTT INR 1.22 (0.82-1.09) H 03/31/18 05:20 Problem List - Problems (1) Strangulated inguinal hernia Assessment/Plan: 82yo male MMP relatively healthy with SBO abdominal pain non reducible LIH, unclear transition point and no clear bowel ischemia identified. Bibasilar pulmonary consolidation and hoarsness may be a sequela of an aspiration. POD#21 s/p Exploratory Laparotomy, segmental ressection of SB and primary stapled anastomosis for strangulated RIH. low grade fevers persists. Patient has soft bowel movements. Extubated on high flow NC. S/p percutaneous cholecystostomy. Surgical gastrostomy being discussed ICU management NGT feeds to goal for IBW Antibiotics per ID Cholecystostomy management per IR Physical Therapy followup GI and DVT prophylaxsis D/C planning to [facility] acute care facility to be determined will follow peripherally This patient is critically ill. Time spent reviewing chart, examining patient, talking with providers and/or family and documentation is 35 minutes Code(s): K40.30 - UNIL INGUINAL HERNIA, W OBST, W/O GANGR, NOT SPCF RECUR (2) Incarcerated left inguinal hernia Code(s): K40.30 - UNIL INGUINAL HERNIA, W OBST, W/O GANGR, NOT SPCF RECUR (3) BPH (benign prostatic hyperplasia) Code(s): N40.0 - BENIGN PROSTATIC HYPERPLASIA WITHOUT LOWER URINRY TRACT SYMP Qualifiers: Lower urinary tract symptom presence: symptoms present Lower urinary tract symptom detail: urinary frequency Qualified Code(s): N40.1 - Benign prostatic hyperplasia with lower urinary tract symptoms; R35.0 - Frequency of micturition ; R35.0 - Frequency of micturition (4) DDD (degenerative disc disease), cervical Code(s): M50.30 - OTHER CERVICAL DISC DEGENERATION, UNSP CERVICAL REGION (5) SBO (small bowel obstruction) Code(s): K56.609 - UNSP INTESTNL OBST, UNSP TO PARTIAL VERSUS COMPLETE OBST (6) Aspiration pneumonia of both lower lobes due to gastric secretions Code(s): J69.0 - PNEUMONITIS DUE TO INHALATION OF FOOD AND VOMIT
[2018-04-05] MEDS: HEPARIN SOD,PORK IN 0.45% NACL 25,000 UNITS/500 ML INFUS.BAG IVPB SCH (14:00)
--- NOTE | 2018-04-05 16:34 | PN ---
Progress Note, Physician History of Present Illness: Pt remains weak but without distress. Saturating well, s/p extubation. Tmax 99.8F. - Current Medication List Current Medications: Active Medications Acetaminophen (Tylenol Oral Solution -) 650 mg PO Q6H PRN PRN Reason: FEVER Last Admin: 04/05/18 06:35 Dose: 650 mg Amino Acids (Prosource No Carb Liquid Pkt) 30 ml PO DAILY JUDY Last Admin: 04/05/18 09:16 Dose: 30 ml Artificial Tears (Artificial Tears) 1 drop OU BID PRN PRN Reason: DRY EYES Last Admin: 03/30/18 10:34 Dose: 1 drop Meropenem 1 gm/ Dextrose 100 mls @ 200 mls/hr IVPB Q8H-IV JUDY Last Admin: 04/05/18 09:17 Dose: 200 mls/hr HEPARIN SOD,PORK IN 0.45% NACL (Heparin-1/2ns 25,000 Units/500) 25,000 units in 500 mls @ 20 mls/hr IVPB TITR [facility]; Protocol Last Titration: 04/05/18 08:33 Dose: 1,300 units/hr, 26 mls/hr Insulin Aspart (Novolog Vial Sliding Scale -) 1 vial SQ ACHS [facility]; Protocol Last Admin: 04/05/18 12:37 Dose: 2 units Ondansetron HCl (Zofran Injection) 4 mg IVPUSH Q6H PRN PRN Reason: NAUSEA Ranitidine HCl (Zantac Oral Solution -) 150 mg NGT DAILY JUDY Last Admin: 04/05/18 09:17 Dose: 150 mg - Objective Vital Signs: Vital Signs Temperature 98.5 F 04/05/18 12:00 Pulse Rate 96 H 04/05/18 14:00 Respiratory Rate 24 04/05/18 14:00 Blood Pressure 119/64 04/05/18 14:00 O2 Sat by Pulse Oximetry (%) 100 04/05/18 09:00 Constitutional: Yes: No Distress HENT: Yes: Other (+NGT) Cardiovascular: Yes: Tachycardia Respiratory: Yes: Rhonchi ( scattered rhonchi) Gastrointestinal: Yes: Normal Bowel Sounds, Soft, Other (RUQ drain) Edema: Yes (LE) Wound/Incision: Yes: Clean/Dry Labs: CBC, BMP 04/05/18 05:30 04/05/18 05:30 INR, PTT INR 1.22 (0.82-1.09) H 03/31/18 05:20 Problem List - Problems (1) Aspiration pneumonia of both lower lobes due to gastric secretions Code(s): J69.0 - PNEUMONITIS DUE TO INHALATION OF FOOD AND VOMIT (2) BPH (benign prostatic hyperplasia) Code(s): N40.0 - BENIGN PROSTATIC HYPERPLASIA WITHOUT LOWER URINRY TRACT SYMP Qualifiers: Lower urinary tract symptom presence: symptoms present Lower urinary tract symptom detail: urinary frequency Qualified Code(s): N40.1 - Benign prostatic hyperplasia with lower urinary tract symptoms; R35.0 - Frequency of micturition ; R35.0 - Frequency of micturition (3) DDD (degenerative disc disease), cervical Code(s): M50.30 - OTHER CERVICAL DISC DEGENERATION, UNSP CERVICAL REGION (4) Incarcerated left inguinal hernia Code(s): K40.30 - UNIL INGUINAL HERNIA, W OBST, W/O GANGR, NOT SPCF RECUR (5) SBO (small bowel obstruction) Code(s): K56.609 - UNSP INTESTNL OBST, UNSP TO PARTIAL VERSUS COMPLETE OBST (6) Strangulated inguinal hernia Code(s): K40.30 - UNIL INGUINAL HERNIA, W OBST, W/O GANGR, NOT SPCF RECUR Assessment/Plan Aspiration Pneumonia / hypoxic respiratory failure Septic Shock - improved Incarcerated Inguinal Hernia SBO s/p Ex-lap w/ resection/primary anastomosis Possible Acalculus Cholecystitis s/p cholecystostomy Diverticulosis BPH ANATOLIY Paroxysmal Atrial Fibrillation - mild temperature elevations - continue antibiotics for now - appears to be slowly improving, tolerated extubation, cont. chest PT - continue monitor temps/wbc - awaiting peg placement cc: 35 min
--- NOTE | 2018-04-05 16:45 | PN ---
Progress Note (short form) - Note Progress Note: Chief Complaint: septic shock History of Present Illness: more awake, alert, can communicate verbally although voice is weak. Denies sob, cp, palps, dizziness. appears to be tender in upper extremities. LFT's normalized yesterday, trending up today. On TF's through NGT. Current Medications Acetaminophen (Tylenol Oral Solution -) 650 mg PO Q6H PRN PRN Reason: FEVER Last Admin: 04/05/18 06:35 Dose: 650 mg Amino Acids (Prosource No Carb Liquid Pkt) 30 ml PO DAILY JUDY Last Admin: 04/05/18 09:16 Dose: 30 ml Artificial Tears (Artificial Tears) 1 drop OU BID PRN PRN Reason: DRY EYES Last Admin: 03/30/18 10:34 Dose: 1 drop Meropenem 1 gm/ Dextrose 100 mls @ 200 mls/hr IVPB Q8H-IV JUDY Last Admin: 04/05/18 09:17 Dose: 200 mls/hr HEPARIN SOD,PORK IN 0.45% NACL (Heparin-1/2ns 25,000 Units/500) 25,000 units in 500 mls @ 20 mls/hr IVPB TITR JUDY; Protocol Last Admin: 04/05/18 14:00 Dose: 1,300 units/hr, 26 mls/hr Insulin Aspart (Novolog Vial Sliding Scale -) 1 vial SQ ACHS JUDY; Protocol Last Admin: 04/05/18 16:29 Dose: 4 units Ondansetron HCl (Zofran Injection) 4 mg IVPUSH Q6H PRN PRN Reason: NAUSEA Ranitidine HCl (Zantac Oral Solution -) 150 mg NGT DAILY JUDY Last Admin: 04/05/18 09:17 Dose: 150 mg Vital Signs - 24 hr 04/04/18 04/04/18 04/04/18 18:00 20:00 21:00 Temperature Pulse Rate 88 102 H Respiratory 23 24 Rate Blood Pressure 115/62 117/62 O2 Sat by Pulse 99 Oximetry (%) 04/04/18 04/04/18 04/05/18 21:24 22:00 00:00 Temperature 99.8 F H Pulse Rate 101 H 98 H Respiratory 20 20 Rate Blood Pressure 110/54 101/61 O2 Sat by Pulse 98 Oximetry (%) 06/08/1304/05/18 04/05/18 02:00 02:29 04:00 Temperature 97.8 F Pulse Rate 94 H 93 H 102 H Respiratory 27 H 26 H Rate Blood Pressure 116/62 114/70 O2 Sat by Pulse 98 Oximetry (%) 04/05/18 04/05/18 04/05/18 06:00 06:49 07:55 Temperature 99.8 F H Pulse Rate 99 H 99 H Respiratory 24 Rate Blood Pressure 112/71 O2 Sat by Pulse 98 100 Oximetry (%) 04/05/18 04/05/18 04/05/18 08:00 09:00 10:00 Temperature 98.9 F Pulse Rate 101 H 83 Respiratory 21 24 21 Rate Blood Pressure 129/71 108/60 O2 Sat by Pulse 100 Oximetry (%) 04/05/18 04/05/18 12:00 14:00 Temperature 98.5 F Pulse Rate 91 H 96 H Respiratory 28 H 24 Rate Blood Pressure 110/61 119/64 O2 Sat by Pulse Oximetry (%) Intake & Output 04/03/18 04/04/18 04/05/18 04/06/18 07:59 07:59 07:59 07:59 Intake Total 1694 2283 2432 Output Total 2485 2730 1255 Balance -791 -332 1177 Weight 149 lb 9.6 oz 148 lb 145 lb 4 oz nad no jvd, on HFNC ctab, poor eff rrr nl s1s2 no mrg + bs soft nt nd no e/c/c no jaundice, + diaphoresis alert Labs: CBC, BMP 04/05/18 05:30 04/05/18 05:30 Laboratory Tests 04/05/18 05:30 Total Bilirubin 1.1 H D AST 60 H D ALT 89 H D Alkaline Phosphatase 238 H tele: SR/sinus tach ecg: sr, nl intervals, no ischemic changes head ct: no acute pathology echo 02/2018: nl lv/rv, mild mr/tr/ar RUE u/s: nonocclusive thrombus in Rt int jugular vein. cxr: chf, slightly improved cxr 03/25: no sig change cxr 04/04: ng tube. some increased markings at left base. by my review, overall unchanged cxr 04/05: overall unchanged. Assessment/Plan a/p: 82 m hx gerd, bph, here with abd pain/sepsis - found to have sbo, now s/p OR hospital course c/b new afib. septic shock/sbo/cholecystitis/asp pna: -s/p ex-lap/segmental terminal ileum resection/primary anastamosis 03/13 -Suspected Acalculus Cholecystitis s/p percutaneous cholecystostomy 03/20 -asp pna -now extubated, off pressors. bp stable. cont abx per ID. - +++ weakness, improving slowly. Has plan for Peg placement friday. -receiving IV lasix prn per CXR appearing congested. Last lasix 03/31. Resp status stable. new pafib --> conversion to sr: -new onset here. rate controlled w/o meds. 03/25 converted to sr-->remains in sinus -echo unremarkable -chadsvasc warrants ac. continue UFH gtt. Has plan for PEG. Will likely transition to noac after peg placement. RUE DVT - On AC.
[2018-04-06] MEDS: MEROPENEM 1 GM in DEXTROSE 5%-WATER 100 ML IVPB SCH ×3 (02:06→18:06)
[2018-04-06] MEDS ORDERED: DEXTROSE 5%-0.45% SALINE 1,000 ML IV SCH (06:30)
[2018-04-06] MEDS: INSULIN SLIDING SCALE (NOVOLOG) 1 VIAL SQ SCH ×4 (06:33→22:35)
[2018-04-06 06:51] LABS: HEMATOCRIT 33.3 % (35.4-49); HEMOGLOBIN 11.2 GM/dL (11.7-16.9); MCH 30.3 pg (25.7-33.7); MCHC 33.8 g/dl (32.0-35.9); MEAN CELL VOLUME 89.8 fl (80-96); MEAN PLT VOLUME 9.5 fl (7.5-11.1); PLATELET COUNT 572 K/MM3 (134-434); RDW 15.3 % (11.9-15.9); WHITE BLOOD COUNT 10.7 K/mm3 (4.0-10.0)
[2018-04-06 07:00] LABS: INR 1.29 (0.82-1.09); PROTHROMBIN TIME (PATIENT) 14.6 SEC (9.7-13.0)
[2018-04-06 07:12] LABS: CHLORIDE 105 mmol/L (98-107); POTASSIUM 4.6 mmol/L (3.5-5.1); SODIUM 136 mmol/L (136-145)
[2018-04-06 07:52] LABS: ALBUMIN 1.4 g/dl (3.4-5.0); ALK PHOS 216 U/L (45-117); ANION GAP 9 (8-16); BILIRUBIN,TOTAL 1.2 mg/dL (0.2-1.0); BLOOD UREA NITROGEN 28 mg/dL (7-18); CALCIUM 8.2 mg/dL (8.5-10.1); CO2 22 mmol/L (21-32); CREATININE 0.4 mg/dL (0.7-1.3); GLUCOSE,RANDOM 104 mg/dL (74-106); MAGNESIUM 2.3 mg/dL (1.8-2.4); PHOSPHOROUS 3.2 mg/dL (2.5-4.9); SGOT/AST 36 U/L (15-37); SGPT/ALT 76 U/L (12-78); TOT PROT 6.1 g/dl (6.4-8.2)
[2018-04-06] MEDS: RANITIDINE HCL 150 MG/10 ML UNIT-DOSE NGT SCH (09:17)
[2018-04-06] MEDS: AMINO ACIDS/PROTEIN HYDROLYS 30 ML LIQUID.PKT PO SCH (09:17)
[2018-04-06] MEDS ORDERED: PT OWN MED DRAWER 7, Y5N ONE ×2 (09:18→18:02)
--- NOTE | 2018-04-06 10:24 | PN ---
Progress Note, Physician Chief Complaint: resp failure History of Present Illness: cannot speak loudly/communicate clearly denies cp - Current Medication List Current Medications: Active Medications Acetaminophen (Tylenol Oral Solution -) 650 mg PO Q6H PRN PRN Reason: FEVER Last Admin: 04/05/18 06:35 Dose: 650 mg Amino Acids (Prosource No Carb Liquid Pkt) 30 ml PO DAILY JUDY Last Admin: 04/06/18 09:17 Dose: Not Given Artificial Tears (Artificial Tears) 1 drop OU BID PRN PRN Reason: DRY EYES Last Admin: 03/30/18 10:34 Dose: 1 drop Meropenem 1 gm/ Dextrose 100 mls @ 200 mls/hr IVPB Q8H-IV JUDY Last Admin: 04/06/18 09:20 Dose: 200 mls/hr HEPARIN SOD,PORK IN 0.45% NACL (Heparin-1/2ns 25,000 Units/500) 25,000 units in 500 mls @ 20 mls/hr IVPB TITR [facility]; Protocol Last Admin: 04/05/18 14:00 Dose: 1,300 units/hr, 26 mls/hr Insulin Aspart (Novolog Vial Sliding Scale -) 1 vial SQ ACHS [facility]; Protocol Last Admin: 04/06/18 06:33 Dose: 8 units Ondansetron HCl (Zofran Injection) 4 mg IVPUSH Q6H PRN PRN Reason: NAUSEA Ranitidine HCl (Zantac Oral Solution -) 150 mg NGT DAILY JUDY Last Admin: 04/06/18 09:17 Dose: Not Given - Objective Vital Signs: Vital Signs Temperature 99.4 F 04/06/18 08:00 Pulse Rate 97 H 04/06/18 10:15 Respiratory Rate 22 04/06/18 10:15 Blood Pressure 115/73 04/06/18 10:15 O2 Sat by Pulse Oximetry (%) 100 04/06/18 10:15 Constitutional: Yes: Well Nourished, No Distress, Calm Cardiovascular: Yes: Regular Rate and Rhythm, S1, S2. No: Gallop, Murmur Respiratory: Yes: Regular, CTA Bilaterally (anteriorly (nasal high flow O2 on)) . No: Accessory Muscle Use Extremities: No: Cool Edema: No Neurological: Yes: Alert. No: Seizure Labs: CBC, BMP 04/06/18 05:20 04/06/18 05:20 INR, PTT INR 1.29 (0.82-1.09) H 04/06/18 05:20 Assessment/Plan ecg: sr, nl intervals, no ischemic changes head ct: no acute pathology echo 02/2018: nl lv/rv, mild mr/tr/ar RUE u/s: nonocclusive thrombus in Rt int jugular vein. Assessment/Plan a/p: 82 m hx gerd, bph, here with abd pain/sepsis - found to have sbo, now s/p OR hospital course c/b new afib. septic shock/sbo/cholecystitis/asp pna: -s/p ex-lap/segmental terminal ileum resection/primary anastamosis 03/13 -Suspected Acalculus Cholecystitis s/p percutaneous cholecystostomy 03/20 -asp pna -now extubated, off pressors. bp stable. cont abx per ID. - +++ weakness, improving slowly. Has plan for Peg placement friday. -receiving IV lasix prn per CXR appearing congested. Last lasix 03/31. Resp status and CXR stable. new pafib --> conversion to sr: -new onset here. rate controlled w/o meds. 03/25 converted to sr-->remains in sinus -echo unremarkable -chadsvasc warrants ac. continue UFH gtt. Has plan for PEG. Will likely transition to noac after peg placement. RUE DVT - On AC.
--- NOTE | 2018-04-06 11:17 | PN ---
Progress Note, [employer]IST - Note Progress Note: GT inserted in IR. As pt becomes stronger and more stable, suggest MBS to further assess swallowing function, r/o aspiration/stasis,with goal to initiate PO trial with safety.
--- NOTE | 2018-04-06 11:28 | PN ---
Progress Note, Physician Chief Complaint: SBO History of Present Illness: 82 yo male PMH BPH, degernerative disc disease (cervical), diverticulosis, hemorrhoids presented to the ED with abdominal pain and vomiting for on day. He reports that he was weight training yesterday and developed some groin pain. 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 gradually more responsive, intermittent clinical improvement. - Current Medication List Current Medications: Active Medications Acetaminophen (Tylenol Oral Solution -) 650 mg PO Q6H PRN PRN Reason: FEVER Last Admin: 04/05/18 06:35 Dose: 650 mg Amino Acids (Prosource No Carb Liquid Pkt) 30 ml PO DAILY JUDY Last Admin: 04/06/18 09:17 Dose: Not Given Artificial Tears (Artificial Tears) 1 drop OU BID PRN PRN Reason: DRY EYES Last Admin: 03/30/18 10:34 Dose: 1 drop Meropenem 1 gm/ Dextrose 100 mls @ 200 mls/hr IVPB Q8H-IV JUDY Last Admin: 04/06/18 09:20 Dose: 200 mls/hr HEPARIN SOD,PORK IN 0.45% NACL (Heparin-1/2ns 25,000 Units/500) 25,000 units in 500 mls @ 20 mls/hr IVPB TITR [facility]Y; Protocol Last Admin: 04/05/18 14:00 Dose: 1,300 units/hr, 26 mls/hr Insulin Aspart (Novolog Vial Sliding Scale -) 1 vial SQ ACHS [facility]; Protocol Last Admin: 04/06/18 06:33 Dose: 8 units Ondansetron HCl (Zofran Injection) 4 mg IVPUSH Q6H PRN PRN Reason: NAUSEA Ranitidine HCl (Zantac Oral Solution -) 150 mg NGT DAILY JUDY Last Admin: 04/06/18 09:17 Dose: Not Given - Objective Vital Signs: Vital Signs Temperature 99.4 F 04/06/18 08:00 Pulse Rate 99 H 04/06/18 10:56 Respiratory Rate 23 04/06/18 10:56 Blood Pressure 127/75 04/06/18 10:56 O2 Sat by Pulse Oximetry (%) 100 04/06/18 10:56 Vital Signs Period Temp Pulse Resp BP Sys/Ceballos Pulse Ox Last 24 Hr 98.5 F-99.4 F 88-101 22-29 103-127/55-75 96-100 Intake & Output 04/05/18 04/06/18 04/06/18 23:59 07:59 15:59 Intake Total 912 880 Output Total 125 725 Balance 787 155 Weight 139 lb 1.6 oz Intake: IV 312 180 HEPARIN-1/2NS 25,000 312 180 UNITS/500 25,000 units In 500 ml @ 1,000 UNITS/HR 20 mls/hr IVPB TITR JUDY Rx#:[id number] IVPB 200 Tube Feeding 300 Tube Irrigant 100 700 Output: Drainage 125 125 Right Upper Abdomen 125 125 Urine 600 External Catheter 600 Other: Voiding Method Diaper External Catheter # Unmeasured Voids Void 3 2 Bowel Movement No Weight Measurement Method Built in [facility] Constitutional: Yes: No Distress, Calm, Thin Eyes: Yes: Conjunctiva Clear, EOM Intact HENT: Yes: Atraumatic, Normocephalic Neck: Yes: Supple, Trachea Midline Cardiovascular: Yes: Regular Rate and Rhythm, S1, S2 Respiratory: Yes: Regular, CTA Bilaterally, On Nasal O2 Gastrointestinal: Yes: Normal Bowel Sounds, Soft, Other (gastrostomy LUQ, cholecystostomy RUQ) ...Rectal Exam: Yes: Deferred Genitourinary: No: CVA Tenderness - Left, CVA Tenderness - Right Extremities: No: Cool, Cyanosis Edema: Yes Edema: LUE: Trace, RUE: Trace, LLE: Trace, RLE: Trace Peripheral Pulses WNL: Yes Peripheral Pulses: Left Doralis Pedis: 2+, Right Dorsalis Pedis: 2+ Integumentary: No: Jaundice, Rash Wound/Incision: Yes: Clean/Dry, Well Approximated, Open to air Neurological: Yes: Alert, Oriented Psychiatric: Yes: Alert, Oriented Labs: CBC, BMP 04/06/18 05:20 04/06/18 05:20 INR, PTT INR 1.29 (0.82-1.09) H 04/06/18 05:20 Problem List - Problems (1) Strangulated inguinal hernia Assessment/Plan: 82yo male MMP relatively healthy with SBO abdominal pain non reducible LIH, unclear transition point and no clear bowel ischemia identified. Bibasilar pulmonary consolidation and hoarsness may be a sequela of an aspiration. POD#23 s/p Exploratory Laparotomy, segmental ressection of SB and primary stapled anastomosis for strangulated RIH. low grade fevers persists. Patient has soft bowel movements. Extubated on high flow NC. S/p percutaneous cholecystostomy and gastrostomy. ICU management Antibiotics per ID Feed to goal HEIDE Cholecystostomy management per IR Physical Therapy followup GI and DVT prophylaxsis D/C [facility] to be determined will follow peripherally This patient is critically ill. Time spent reviewing chart, examining patient, talking with providers and/or family and documentation is 35 minutes Code(s): K40.30 - UNIL INGUINAL HERNIA, W OBST, W/O GANGR, NOT SPCF RECUR (2) Incarcerated left inguinal hernia Code(s): K40.30 - UNIL INGUINAL HERNIA, W OBST, W/O GANGR, NOT SPCF RECUR (3) BPH (benign prostatic hyperplasia) Code(s): N40.0 - BENIGN PROSTATIC HYPERPLASIA WITHOUT LOWER URINRY TRACT SYMP Qualifiers: Lower urinary tract symptom presence: symptoms present Lower urinary tract symptom detail: urinary frequency Qualified Code(s): N40.1 - Benign prostatic hyperplasia with lower urinary tract symptoms; R35.0 - Frequency of micturition ; R35.0 - Frequency of micturition (4) DDD (degenerative disc disease), cervical Code(s): M50.30 - OTHER CERVICAL DISC DEGENERATION, UNSP CERVICAL REGION (5) SBO (small bowel obstruction) Code(s): K56.609 - UNSP INTESTNL OBST, UNSP TO PARTIAL VERSUS COMPLETE OBST (6) Aspiration pneumonia of both lower lobes due to gastric secretions Code(s): J69.0 - PNEUMONITIS DUE TO INHALATION OF FOOD AND VOMIT
--- NOTE | 2018-04-06 11:52 | PN ---
Physical Exam: SUBJECTIVE: Patient seen and examined. Alert, following commands. s/p Peg tube placement. OBJECTIVE: Vital Signs Period Temp Pulse Resp BP Sys/Ceballos Pulse Ox Last 24 Hr 98.5 F-99.4 F 88-101 22-29 103-127/55-75 96-100 GENERAL: The patient is awake, alert. follows commands. EYES: PERRL, sclera anicteric, conjunctiva clear. No ptosis. ENT: moist mucous membranes, lip swelling decreased LUNGS: decreased breath sounds at the bases, On high flow O2 35% FiO2 HEART: Regular rate and rhythm, S1, S2 without murmur, rub or gallop. ABDOMEN: Soft, nontender, nondistended, (+) bowel sounds. RUQ LEIF draining EXTREMITIES: no LE edema Laboratory Results - last 24 hr 04/05/18 04/05/18 04/06/18 12:34 16:27 05:20 WBC 10.7 H RBC 3.70 L Hgb 11.2 L Hct 33.3 L MCV 89.8 MCH 30.3 MCHC 33.8 RDW 15.3 Plt Count 572 H MPV 9.5 PT with INR INR Sodium Potassium Chloride Carbon Dioxide Anion Gap BUN Creatinine Creat Clearance w eGFR POC Glucometer 183.28647 231.81519 Random Glucose Calcium Phosphorus Magnesium Total Bilirubin AST ALT Alkaline Phosphatase Total Protein Albumin 04/06/18 04/06/18 05:20 05:20 WBC RBC Hgb Hct MCV MCH MCHC RDW Plt Count MPV PT with INR 14.60 H INR 1.29 H Sodium 136 Potassium 4.6 Chloride 105 Carbon Dioxide 22 Anion Gap 9 BUN 28 H Creatinine 0.4 L Creat Clearance w eGFR > 60 POC Glucometer Random Glucose 104 D Calcium 8.2 L Phosphorus 3.2 D Magnesium 2.3 Total Bilirubin 1.2 H AST 36 D ALT 76 Alkaline Phosphatase 216 H Total Protein 6.1 L Albumin 1.4 L Active Medications Generic Name Dose Route Start Last Admin Trade Name Freq PRN Reason Stop Dose Admin Acetaminophen 650 mg 03/27/18 13:00 04/05/18 06:35 Tylenol Oral Solution - PO 650 mg Q6H PRN Administration FEVER Amino Acids 30 ml 03/24/18 13:00 04/06/18 09:17 Prosource No Carb Liquid Pkt PO Not Given DAILY JUDY Artificial Tears 1 drop 03/24/18 10:59 06/04/18 10:34 Artificial Tears OU 1 drop BID PRN Administration DRY EYES Meropenem 1 gm/ Dextrose 100 mls @ 200 mls/hr 03/19/18 18:00 04/06/18 09:20 IVPB 200 mls/hr Q8H-IV JUDY Administration HEPARIN SOD,PORK IN 0.45% NACL 25,000 units in 500 mls @ 20 mls/hr 03/20/18 14 :15 04/05/18 14:00 Heparin-1/2ns 25,000 Units/500 IVPB 1,300 units/hr TITR JUDY 26 mls/hr Administration Protocol 1,000 UNITS/HR Insulin Aspart 1 vial 03/23/18 11:00 04/06/18 06:33 Novolog Vial Sliding Scale - SQ 8 units ACHS JUDY Administration Protocol Ondansetron HCl 4 mg 03/13/18 04:30 Zofran Injection IVPUSH Q6H PRN NAUSEA Ranitidine HCl 150 mg 04/03/18 11:45 04/06/18 09:17 Zantac Oral Solution - NGT Not Given DAILY JUDY ASSESSMENT/PLAN: Patient is an 82 year old male who presented with abdominal pain and was found to have SBO with bowel ischemia from incarcerated hernia and developed acute respiratory failure from septic shock. Patient admitted for further monitoring and management. Pulm: #Acute Hypoxic Respiratory Failure -Likely secondary to Septic shock from Bowel ischemia and Aspiration PNA -Patient s/p extubation (03/28) and saturating well on high flow volume 35%. Patient remains non-verbal possibly due to vocal cord paralysis/Laryngeal edema/ scar or granluation tissue. -Maintain SpO2 >90% -Incentive spirometry -AM CXR ID: #Septic Shock secondary to SBO and bowel Ischemia -Afebrile -Patient remains off pressors -Continue Meropenem 1gm Q8H (DAY #18). -Will follow up with ID for deescalation of Abx GI: #Ischemic bowel and incarcerated inguinal Hernia -s/p ex lap and partial bowel resection (03/13) -C-TUBE in place and continues to drain bile -S/p Peg tube placement 04/06 -speech/ swallow eval, modified barium swallow Cardio: #New onset Atrial Flutter/Atrial Fibrillation -Currently rate controlled and in normal sinus rhythm -Will continue Heparin drip with future plans to bridge with oral AC Vascular: #Right IJ thrombus -Resume Heparin Drip. Held for Peg tube placement -will switch to NOAC was able to take PO Neuro: #Critical Illness Neuropathy -Continue physical therapy F/E/N -no fluids -monitor lytes -Speech/Swallow reccs before starting feeds Prophylaxis -Heparin drip for DVT -Zantac 150 daily Dispo -Full code -Family not interested in [facility]. manager behavioral looking into other options of LTACH placement. Visit type - Emergency Visit Emergency Visit: Yes ED Registration Date: 03/12/18 Care time: The patient presented to the Emergency Department on the above date and was hospitalized for further evaluation of their emergent condition. - New Patient This patient is new to me today: Yes Date on this admission: 04/06/18 - Critical Care Critical Care patient: Yes Total Critical Care Time (in minutes): 40 Critical Care Statement: The care of this patient involved high complexity decision making to prevent further life threatening deterioration of the patient 's condition and/or to evaluate & treat vital organ system(s) failure or risk of failure.
--- NOTE | 2018-04-06 12:42 | PN ---
<Mukul White - Last Filed: 04/06/18 14:37> Physical Exam: SUBJECTIVE: Pt for IR guided PEG placement today. NPO since midnight. Heparin gtt stopped last night in anticipation. No other acute events. Pt does not report any pain or complaints at this time. OBJECTIVE: Vital Signs Period Temp Pulse Resp BP Sys/Ceballos Pulse Ox Last 24 Hr 98.7 F-99.4 F 88-101 22-29 103-127/55-75 96-100 GENERAL: NAD, alert today. HEENT: KITTY, EOMI, L nare NG intact, MMM, lip edema resolving Neck: no JVD LUNGS: Aeration of lungs down to the bases. no overt rhonchi or rales . On high flow O2 55L/min. 35% FiO2 HEART: RRR, S1, S2 without murmur ABDOMEN: Soft, nondistended, nontender, C-tube draining brown fluid NEURO: Strength 5/5 in lower extremities, pt can now move arms weakly into supination by himself. 2-3/5 strength in Upper extremities. EXTREMITIES: 2+ DP pulses, warm, no edema today SKIN: Warm, dry, no rash or lesions currently Laboratory Results - last 24 hr 04/05/18 04/05/18 04/06/18 12:34 16:27 05:20 WBC 10.7 H RBC 3.70 L Hgb 11.2 L Hct 33.3 L MCV 89.8 MCH 30.3 MCHC 33.8 RDW 15.3 Plt Count 572 H MPV 9.5 PT with INR INR Sodium Potassium Chloride Carbon Dioxide Anion Gap BUN Creatinine Creat Clearance w eGFR POC Glucometer 183.01640 231.22176 Random Glucose Calcium Phosphorus Magnesium Total Bilirubin AST ALT Alkaline Phosphatase Total Protein Albumin 04/06/18 04/06/18 05:20 05:20 WBC RBC Hgb Hct MCV MCH MCHC RDW Plt Count MPV PT with INR 14.60 H INR 1.29 H Sodium 136 Potassium 4.6 Chloride 105 Carbon Dioxide 22 Anion Gap 9 BUN 28 H Creatinine 0.4 L Creat Clearance w eGFR > 60 POC Glucometer Random Glucose 104 D Calcium 8.2 L Phosphorus 3.2 D Magnesium 2.3 Total Bilirubin 1.2 H AST 36 D ALT 76 Alkaline Phosphatase 216 H Total Protein 6.1 L Albumin 1.4 L Active Medications Generic Name Dose Route Start Last Admin Trade Name Tushar PRN Reason Stop Dose Admin Acetaminophen 650 mg 03/27/18 13:00 04/05/18 06:35 Tylenol Oral Solution - PO 650 mg Q6H PRN Administration FEVER Amino Acids 30 ml 03/24/18 13:00 04/06/18 09:17 Prosource No Carb Liquid Pkt PO Not Given DAILY JUDY Artificial Tears 1 drop 03/24/18 10:59 03/30/18 10:34 Artificial Tears OU 1 drop BID PRN Administration DRY EYES Meropenem 1 gm/ Dextrose 100 mls @ 200 mls/hr 03/19/18 18:00 04/06/18 09:20 IVPB 200 mls/hr Q8H-IV JUDY Administration HEPARIN SOD,PORK IN 0.45% NACL 25,000 units in 500 mls @ 20 mls/hr 03/20/18 14 :15 04/05/18 14:00 Heparin-1/2ns 25,000 Units/500 IVPB 1,300 units/hr TITR JUDY 26 mls/hr Administration Protocol 1,000 UNITS/HR Insulin Aspart 1 vial 03/23/18 11:00 04/06/18 06:33 Novolog Vial Sliding Scale - SQ 8 units ACHS JUDY Administration Protocol Ondansetron HCl 4 mg 03/13/18 04:30 Zofran Injection IVPUSH Q6H PRN NAUSEA Ranitidine HCl 150 mg 04/03/18 11:45 04/06/18 09:17 Zantac Oral Solution - NGT Not Given DAILY JUDY ASSESSMENT/PLAN: 1) Acute hypoxic respiratory failure --Resolving, extubated; 6/ --Continue High flow O2 and maintain maintain SpO2 >90% --Current setting 55L/min and 35% FiO2 --Aspiration precautions: HOB elevated 2) Toxic metabolic neuropathy --Continue PT --Awaiting evaluation for LTAC at [place] for intensive physical therapy --When pt reinitiates feed through G-tube can start on NOAC orally for AC rather than heparin gtt to minimize fluid intake --IR PEG tube placement today --Restart AC per IR recommendations --Restart tube feeds per IR recommendations post-procedure 3) Septic shock 2/2 to bowel ischemia in addition to aspiration PNA --ID on board --Meropenem continues 4) Elevated LFTs --Stable --Discussed with IR and will need to keep C-tube for long duration before pulling 5) Atrial flutter/fib --Cardiology consulted --Heparin gtt remains; monitor aPtt; see above regarding NOACs --Echo unremarkable FEN: Fluids: Avoid Electrolyte abnormalities: pseudohypocalcemia (cCa 10.28; monitor for corrected hyperCa) Nutrition: NGT feeds to be restarted after PEG placement; goal rate 50 with prosource on board PPX: DVT - restart AC per IR GI - Protonix 40mg IVP daily Dispo: Continue ICU monitoring; awaiting LTAC decision; PEG today Case discussed with Dr. Soni White, DO - IM PGY-1 Visit type - Emergency Visit Emergency Visit: No - New Patient This patient is new to me today: No - Critical Care Critical Care patient: Yes Total Critical Care Time (in minutes): 35 Critical Care Statement: The care of this patient involved high complexity decision making to prevent further life threatening deterioration of the patient 's condition and/or to evaluate & treat vital organ system(s) failure or risk of failure. <Amber Shafer - Last Filed: 04/06/18 16:47> Physical Exam: Agree with the resident's note. Going for Peg tube by IR.
--- NOTE | 2018-04-06 13:00 | PN ---
Teaching Attending Note Name of Resident: Luke Drake ATTENDING PHYSICIAN STATEMENT I saw and evaluated the patient. I reviewed the resident's note and discussed the case with the resident. I agree with the resident's findings and plan as documented. SUBJECTIVE: Pt seen and examined in the ICU. s/p G tube placement by IR this AM. Remains on HFOT 50L/min, 50% FiO2. OBJECTIVE: Vital Signs Period Temp Pulse Resp BP Sys/Ceballos Pulse Ox Last 24 Hr 98.7 F-99.4 F 9-101 22-29 103-127/55-75 96-100 Intake & Output 04/03/18 04/04/18 04/05/18 04/06/18 23:59 23:59 23:59 23:59 Intake Total 2510 2462 1614 880 Output Total 2520 2115 275 725 Balance -10 347 1339 155 Weight 67.857 kg 67.132 kg 65.884 kg 63.095 kg Gen: mildly tachypneic on HFOT Heart: RRR Lung: scattered rhonchi Abd: soft, nontender Ext: no edema CBC, BMP 04/06/18 05:20 04/06/18 05:20 Active Medications Acetaminophen (Tylenol Oral Solution -) 650 mg PO Q6H PRN PRN Reason: FEVER Last Admin: 04/05/18 06:35 Dose: 650 mg Amino Acids (Prosource No Carb Liquid Pkt) 30 ml PO DAILY JUDY Last Admin: 04/06/18 09:17 Dose: Not Given Artificial Tears (Artificial Tears) 1 drop OU BID PRN PRN Reason: DRY EYES Last Admin: 03/30/18 10:34 Dose: 1 drop Meropenem 1 gm/ Dextrose 100 mls @ 200 mls/hr IVPB Q8H-IV JUDY Last Admin: 04/06/18 09:20 Dose: 200 mls/hr HEPARIN SOD,PORK IN 0.45% NACL (Heparin-1/2ns 25,000 Units/500) 25,000 units in 500 mls @ 20 mls/hr IVPB TITR [facility]; Protocol Last Admin: 04/05/18 14:00 Dose: 1,300 units/hr, 26 mls/hr Insulin Aspart (Novolog Vial Sliding Scale -) 1 vial SQ ACHS [facility]; Protocol Last Admin: 04/06/18 06:33 Dose: 8 units Ondansetron HCl (Zofran Injection) 4 mg IVPUSH Q6H PRN PRN Reason: NAUSEA Ranitidine HCl (Zantac Oral Solution -) 150 mg NGT DAILY JUDY Last Admin: 04/06/18 09:17 Dose: Not Given ASSESSMENT AND PLAN: Acute Hypoxic Respiratory Failure Pneumonia - ?Aspiration ARDS resolving Incarcerated Inguinal Hernia s/p ex-lap/segmental terminal ileum resection/primary anastamosis 03/13 r/o Acalculus Cholecystitis s/p percutaneous cholecystostomy Septic Shock resolving Acute Kidney Injury improving Lactic Acidosis resolved New onset Paroxysmal Atrial Fibrillation Diverticulosis BPH Critical Illness Polyneuropathy - antibiotics per ID - rate controlled - continue anticoagulation - monitor urine output, creatinine - taper FiO2, flow rate to keep SpO2 >90% - start enteral feeds when ok with IR - resume anticoagulation when ok with IR - DVT/GI prophylaxis - continue ICU monitoring critical care time spent in reviewing chart, evaluating patient and formulating plan 35 min
--- NOTE | 2018-04-06 13:08 | PN ---
Progress Note, Physician History of Present Illness: continues to improve still requiring higher o2 on high pressure o2 mentally awake - Current Medication List Current Medications: Active Medications Acetaminophen (Tylenol Oral Solution -) 650 mg PO Q6H PRN PRN Reason: FEVER Last Admin: 04/05/18 06:35 Dose: 650 mg Amino Acids (Prosource No Carb Liquid Pkt) 30 ml PO DAILY JUDY Last Admin: 04/06/18 09:17 Dose: Not Given Artificial Tears (Artificial Tears) 1 drop OU BID PRN PRN Reason: DRY EYES Last Admin: 03/30/18 10:34 Dose: 1 drop Meropenem 1 gm/ Dextrose 100 mls @ 200 mls/hr IVPB Q8H-IV JUDY Last Admin: 04/06/18 09:20 Dose: 200 mls/hr HEPARIN SOD,PORK IN 0.45% NACL (Heparin-1/2ns 25,000 Units/500) 25,000 units in 500 mls @ 20 mls/hr IVPB TITR [facility]; Protocol Last Admin: 04/05/18 14:00 Dose: 1,300 units/hr, 26 mls/hr Insulin Aspart (Novolog Vial Sliding Scale -) 1 vial SQ ACHS [facility]; Protocol Last Admin: 04/06/18 13:01 Dose: Not Given Ondansetron HCl (Zofran Injection) 4 mg IVPUSH Q6H PRN PRN Reason: NAUSEA Ranitidine HCl (Zantac Oral Solution -) 150 mg NGT DAILY [facility] Last Admin: 04/06/18 09:17 Dose: Not Given - Objective Vital Signs: Vital Signs Temperature 99.4 F 04/06/18 08:00 Pulse Rate 98 H 04/06/18 12:00 Respiratory Rate 23 04/06/18 12:00 Blood Pressure 115/64 04/06/18 12:00 O2 Sat by Pulse Oximetry (%) 100 04/06/18 11:36 Constitutional: Yes: No Distress, Calm Cardiovascular: Yes: Regular Rate and Rhythm Respiratory: Yes: Regular, Poor Air Entry Gastrointestinal: Yes: Normal Bowel Sounds, Soft, Other (peg in place) Musculoskeletal: Yes: WNL Extremities: Yes: WNL Neurological: Yes: Alert, Oriented Psychiatric: Yes: Alert, Oriented Labs: CBC, BMP 04/06/18 05:20 04/06/18 05:20 INR, PTT INR 1.29 (0.82-1.09) H 04/06/18 05:20 Assessment/Plan Problem List - Problems (1) Strangulated inguinal hernia Pulmonary evaluation - weaning today? GI Evaluation - Tbili 3.5, 3.6 BP goal MAP 65-70, has a stapled small bowel anastomosis avoid lwo flow states will follow Code(s): K40.30 - UNIL INGUINAL HERNIA, W OBST, W/O GANGR, NOT SPCF RECUR (2) Incarcerated left inguinal hernia Code(s): K40.30 - UNIL INGUINAL HERNIA, W OBST, W/O GANGR, NOT SPCF RECUR (3) BPH (benign prostatic hyperplasia) Code(s): N40.0 - BENIGN PROSTATIC HYPERPLASIA WITHOUT LOWER URINRY TRACT SYMP Qualifiers: Lower urinary tract symptom presence: symptoms present Lower urinary tract symptom detail: urinary frequency Qualified Code(s): N40.1 - Benign prostatic hyperplasia with lower urinary tract symptoms; R35.0 - Frequency of micturition ; R35.0 - Frequency of micturition (4) DDD (degenerative disc disease), cervical Code(s): M50.30 - OTHER CERVICAL DISC DEGENERATION, UNSP CERVICAL REGION (5) SBO (small bowel obstruction) Code(s): K56.609 - UNSP INTESTNL OBST, UNSP TO PARTIAL VERSUS COMPLETE OBST (6) Aspiration pneumonia of both lower lobes due to gastric secretions Code(s): J69.0 - PNEUMONITIS DUE TO INHALATION OF FOOD AND VOMIT r/o acalculus choley plan off of abx close watch chest pt rest as per icu xray labs noted patient improving nutrition peg tube feeding cc 40 min
[2018-04-06] MEDS ORDERED: ACETAMINOPHEN 1000 MG/100 ML VIAL (NON FORMULARY) IVPB PRN (14:51)
[2018-04-06] MEDS ORDERED: morphine SULFATE 4 MG/ML VIAL IVPUSH ONE ×2 (17:24→22:36)
[2018-04-06] MEDS ORDERED: morphine CARPU-JECT 4 MG/1 ML DISP.SYRIN IVPUSH ONE (22:36)
[2018-04-06] MEDS ORDERED: morphine SULFATE 4 MG/ML VIAL ONE (22:38)
[2018-04-07] MEDS: MEROPENEM 1 GM in DEXTROSE 5%-WATER 100 ML IVPB SCH ×2 (02:00→09:27)
[2018-04-07] MEDS ORDERED: PT OWN MED DRAWER 7, Y5N ONE ×3 (03:59→21:09)
[2018-04-07 06:13] LABS: HEMATOCRIT 34.7 % (35.4-49); HEMOGLOBIN 11.8 GM/dL (11.7-16.9); MCH 30.4 pg (25.7-33.7); MCHC 34.1 g/dl (32.0-35.9); MEAN CELL VOLUME 89.1 fl (80-96); MEAN PLT VOLUME 8.8 fl (7.5-11.1); PLATELET COUNT 609 K/MM3 (134-434); RBC 3.89 M/mm3 (4.00-5.60); RDW 14.8 % (11.9-15.9); WHITE BLOOD COUNT 11.9 K/mm3 (4.0-10.0)
[2018-04-07] MEDS: INSULIN SLIDING SCALE (NOVOLOG) 1 VIAL SQ SCH ×4 (06:14→21:19)
--- NOTE | 2018-04-07 06:31 | PN ---
Physical Exam: SUBJECTIVE: Pt alert, moving more, and with NG removed. Pt had IR placement of PEG yesterday. Pt is mouthing words move actively than prior, however phonation is still limited. OBJECTIVE: Vital Signs Period Temp Pulse Resp BP Sys/Ceballos Pulse Ox Last 24 Hr 98.4 F-99.5 F 94-118 14-27 102-136/61-98 96-100 GENERAL: NAD, alert today. HEENT: KITTY, EOMI, L nare NG intact, MMM, lip edema resolving Neck: no JVD LUNGS: Aeration of lungs down to the bases. no overt rhonchi or rales . On high flow O2 55L/min. 35% FiO2 HEART: RRR, S1, S2 without murmur ABDOMEN: Soft, nondistended, nontender, C-tube draining brown fluid NEURO: Strength 5/5 in lower extremities, pt can now move arms weakly into supination by himself. 2-3/5 strength in Upper extremities. EXTREMITIES: 2+ DP pulses, warm, no edema today SKIN: Warm, dry, no rash or lesions currently Laboratory Results - last 24 hr 04/06/18 04/06/18 04/06/18 05:20 05:20 05:20 WBC 10.7 H RBC 3.70 L Hgb 11.2 L Hct 33.3 L MCV 89.8 MCH 30.3 MCHC 33.8 RDW 15.3 Plt Count 572 H MPV 9.5 PT with INR 14.60 H INR 1.29 H Sodium 136 Potassium 4.6 Chloride 105 Carbon Dioxide 22 Anion Gap 9 BUN 28 H Creatinine 0.4 L Creat Clearance w eGFR > 60 POC Glucometer Random Glucose 104 D Calcium 8.2 L Phosphorus 3.2 D Magnesium 2.3 Total Bilirubin 1.2 H AST 36 D ALT 76 Alkaline Phosphatase 216 H Total Protein 6.1 L Albumin 1.4 L 04/06/18 04/06/18 04/07/18 16:35 22:22 05:46 WBC RBC Hgb Hct MCV MCH MCHC RDW Plt Count MPV PT with INR INR Sodium Potassium Chloride Carbon Dioxide Anion Gap BUN Creatinine Creat Clearance w eGFR POC Glucometer 143.34236 133.50497 165.68426 Random Glucose Calcium Phosphorus Magnesium Total Bilirubin AST ALT Alkaline Phosphatase Total Protein Albumin 04/07/18 06:00 WBC 11.9 H RBC 3.89 L Hgb 11.8 Hct 34.7 L MCV 89.1 MCH 30.4 MCHC 34.1 RDW 14.8 Plt Count 609 H MPV 8.8 PT with INR INR Sodium Potassium Chloride Carbon Dioxide Anion Gap BUN Creatinine Creat Clearance w eGFR POC Glucometer Random Glucose Calcium Phosphorus Magnesium Total Bilirubin AST ALT Alkaline Phosphatase Total Protein Albumin Active Medications Generic Name Dose Route Start Last Admin Trade Name Freq PRN Reason Stop Dose Admin Acetaminophen 650 mg 03/27/18 13:00 04/05/18 06:35 Tylenol Oral Solution - PO 650 mg Q6H PRN Administration FEVER Acetaminophen 1,000 mg 04/06/18 14:51 04/06/18 14:51 Ofirmev Injection - IVPB 1,000 mg Q6H PRN Administration PAIN Amino Acids 30 ml 03/24/18 13:00 04/06/18 09:17 Prosource No Carb Liquid Pkt PO Not Given DAILY JUDY Artificial Tears 1 drop 03/24/18 10:59 03/30/18 10:34 Artificial Tears OU 1 drop BID PRN Administration DRY EYES Meropenem 1 gm/ Dextrose 100 mls @ 200 mls/hr 03/19/18 18:00 04/07/18 02:00 IVPB 200 mls/hr Q8H-IV JUDY Administration HEPARIN SOD,PORK IN 0.45% NACL 25,000 units in 500 mls @ 20 mls/hr 03/20/18 14 :15 04/05/18 14:00 Heparin-1/2ns 25,000 Units/500 IVPB 1,300 units/hr TITR JUDY 26 mls/hr Administration Protocol 1,000 UNITS/HR Insulin Aspart 1 vial 03/23/18 11:00 04/07/18 06:14 Novolog Vial Sliding Scale - SQ 2 units ACHS JUDY Administration Protocol Ondansetron HCl 4 mg 03/13/18 04:30 Zofran Injection IVPUSH Q6H PRN NAUSEA Ranitidine HCl 150 mg 04/03/18 11:45 04/06/18 09:17 Zantac Oral Solution - NGT Not Given DAILY JUDY ASSESSMENT/PLAN: 1) Acute hypoxic respiratory failure --Resolving, extubated; 03/28 --Continue High flow O2 and maintain maintain SpO2 >90% --Current setting 55L/min and 35% FiO2 --Aspiration precautions: HOB elevated 2) Toxic metabolic neuropathy --Continue PT --Awaiting evaluation for LTAC at [place] for intensive physical therapy --When pt reinitiates feed through G-tube can start on NOAC orally for AC rather than heparin gtt to minimize fluid intake --IR PEG placed yesterday --Can restart feeds this afternoon; Perative per dietary recommendation 3) Septic shock 2/2 to bowel ischemia in addition to aspiration PNA --ID on board --Meropenem continues 4) Elevated LFTs --Stable --Discussed with IR and will need to keep C-tube for long duration before pulling 5) Atrial flutter/fib --Cardiology consulted --Eliquis 5mg GT BID start for the next week and then can switch to 2.5mg GT BID --Echo unremarkable FEN: Fluids: Avoid Electrolyte abnormalities: cCa 10.42 (corrected hypercalcemia; continue to monitor) Nutrition: Perative and Prosource BID PPX: DVT - Eliquis as above GI - Protonix 40mg IVP daily Dispo: Spoke with Allie and family at bedside; reports they were not interested in [place], however were looking at LTAC's in [place], [place], and other [place] location. Case discussed with Dr. Soni White, DO - IM PGY-1 Visit type - Emergency Visit Emergency Visit: No - New Patient This patient is new to me today: No - Critical Care Critical Care patient: No
[2018-04-07 06:36] LABS: ALBUMIN 1.6 g/dl (3.4-5.0); ANION GAP 8 (8-16); BLOOD UREA NITROGEN 25 mg/dL (7-18); CALCIUM 8.5 mg/dL (8.5-10.1); CHLORIDE 104 mmol/L (98-107); CO2 24 mmol/L (21-32); CREATININE 0.5 mg/dL (0.7-1.3); GLUCOSE,RANDOM 137 mg/dL (74-106); MAGNESIUM 2.3 mg/dL (1.8-2.4); PHOSPHOROUS 3.3 mg/dL (2.5-4.9); POTASSIUM 4.6 mmol/L (3.5-5.1); SGOT/AST 27 U/L (15-37); SGPT/ALT 63 U/L (12-78); SODIUM 136 mmol/L (136-145)
[2018-04-07 06:37] LABS: ALK PHOS 207 U/L (45-117); BILIRUBIN,TOTAL 1.2 mg/dL (0.2-1.0); TOT PROT 6.6 g/dl (6.4-8.2)
[2018-04-07] MEDS: AMINO ACIDS/PROTEIN HYDROLYS 30 ML LIQUID.PKT PO SCH ×2 (09:26→21:18)
[2018-04-07] MEDS: RANITIDINE HCL 150 MG/10 ML UNIT-DOSE NGT SCH (09:27)
--- NOTE | 2018-04-07 09:54 | PN ---
Progress Note, Physician Chief Complaint: SBO History of Present Illness: 82 yo male PMH BPH, degernerative disc disease (cervical), diverticulosis, hemorrhoids presented to the ED with abdominal pain and vomiting for on day. He reports that he was weight training yesterday and developed some groin pain. 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 gradually more responsive, intermittent clinical improvement. - Current Medication List Current Medications: Active Medications Acetaminophen (Tylenol Oral Solution -) 650 mg PO Q6H PRN PRN Reason: FEVER Last Admin: 04/05/18 06:35 Dose: 650 mg Acetaminophen (Ofirmev Injection -) 1,000 mg IVPB Q6H PRN PRN Reason: PAIN Last Admin: 04/06/18 14:51 Dose: 1,000 mg Amino Acids (Prosource No Carb Liquid Pkt) 30 ml PO DAILY JUDY Last Admin: 04/07/18 09:26 Dose: 30 ml Artificial Tears (Artificial Tears) 1 drop OU BID PRN PRN Reason: DRY EYES Last Admin: 03/30/18 10:34 Dose: 1 drop Meropenem 1 gm/ Dextrose 100 mls @ 200 mls/hr IVPB Q8H-IV JUDY Last Admin: 04/07/18 09:27 Dose: 200 mls/hr HEPARIN SOD,PORK IN 0.45% NACL (Heparin-1/2ns 25,000 Units/500) 25,000 units in 500 mls @ 20 mls/hr IVPB TITR [facility]; Protocol Last Admin: 04/05/18 14:00 Dose: 1,300 units/hr, 26 mls/hr Insulin Aspart (Novolog Vial Sliding Scale -) 1 vial SQ ACHS [facility]; Protocol Last Admin: 04/07/18 06:14 Dose: 2 units Ondansetron HCl (Zofran Injection) 4 mg IVPUSH Q6H PRN PRN Reason: NAUSEA Ranitidine HCl (Zantac Oral Solution -) 150 mg NGT DAILY JUDY Last Admin: 04/07/18 09:27 Dose: 150 mg - Objective Vital Signs: Vital Signs Temperature 98.9 F 04/07/18 06:00 Pulse Rate 110 H 04/07/18 08:00 Respiratory Rate 24 04/07/18 08:00 Blood Pressure 127/79 04/07/18 08:00 O2 Sat by Pulse Oximetry (%) 98 04/07/18 07:32 Vital Signs Period Temp Pulse Resp BP Sys/Ceballos Pulse Ox Last 24 Hr 98.4 F-99.5 F 94-118 14-26 102-150/61-98 96-100 Intake & Output 04/06/18 04/07/18 04/07/18 23:59 07:59 15:59 Intake Total 100 100 Output Total 800 850 Balance -700 -750 Weight 139 lb 1.6 oz Intake: IVPB 100 100 Output: Gastric Drainage 400 Drainage 350 50 Right Upper Abdomen 350 50 Urine 450 400 External Catheter 450 400 Other: Voiding Method External Catheter # Unmeasured Voids Void 2 Bowel Movement No No Weight Measurement Method Built in [facility] Constitutional: Yes: No Distress, Calm, Thin Eyes: Yes: Conjunctiva Clear, EOM Intact HENT: Yes: Atraumatic, Normocephalic Neck: Yes: Supple, Trachea Midline Cardiovascular: Yes: Regular Rate and Rhythm, S1, S2 Respiratory: Yes: Regular, CTA Bilaterally, On Nasal O2 Gastrointestinal: Yes: Normal Bowel Sounds, Soft. No: Tenderness ...Rectal Exam: Yes: Deferred Genitourinary: No: CVA Tenderness - Left, CVA Tenderness - Right Extremities: No: Cool, Cyanosis Integumentary: No: Jaundice, Rash Wound/Incision: Yes: Clean/Dry, Well Approximated, Open to air Neurological: Yes: Alert, Oriented Psychiatric: Yes: Alert, Oriented Labs: CBC, BMP 04/07/18 06:00 04/07/18 06:00 INR, PTT INR 1.29 (0.82-1.09) H 04/06/18 05:20 - ....Imaging Chest X-ray: Report Reviewed, Image Reviewed X-ray: Pending, Image Reviewed Problem List - Problems (1) Strangulated inguinal hernia Assessment/Plan: 82yo male MMP relatively healthy with SBO abdominal pain non reducible LIH, unclear transition point and no clear bowel ischemia identified. Bibasilar pulmonary consolidation and hoarsness may be a sequela of an aspiration. POD#23 s/p Exploratory Laparotomy, segmental ressection of SB and primary stapled anastomosis for strangulated RIH. low grade fevers persists. Patient has soft bowel movements. Extubated on high flow NC. S/p percutaneous cholecystostomy and gastrostomy. ICU management Antibiotics per ID Feed to goal HEIDE Cholecystostomy management per IR Physical Therapy followup GI and DVT prophylaxsis D/C planning to intermediate acute care facility to be determined will follow peripherally This patient is critically ill. Time spent reviewing chart, examining patient, talking with providers and/or family and documentation is 35 minutes Code(s): K40.30 - UNIL INGUINAL HERNIA, W OBST, W/O GANGR, NOT SPCF RECUR (2) Incarcerated left inguinal hernia Code(s): K40.30 - UNIL INGUINAL HERNIA, W OBST, W/O GANGR, NOT SPCF RECUR (3) BPH (benign prostatic hyperplasia) Code(s): N40.0 - BENIGN PROSTATIC HYPERPLASIA WITHOUT LOWER URINRY TRACT SYMP Qualifiers: Lower urinary tract symptom presence: symptoms present Lower urinary tract symptom detail: urinary frequency Qualified Code(s): N40.1 - Benign prostatic hyperplasia with lower urinary tract symptoms; R35.0 - Frequency of micturition ; R35.0 - Frequency of micturition (4) DDD (degenerative disc disease), cervical Code(s): M50.30 - OTHER CERVICAL DISC DEGENERATION, UNSP CERVICAL REGION (5) SBO (small bowel obstruction) Code(s): K56.609 - UNSP INTESTNL OBST, UNSP TO PARTIAL VERSUS COMPLETE OBST (6) Aspiration pneumonia of both lower lobes due to gastric secretions Code(s): J69.0 - PNEUMONITIS DUE TO INHALATION OF FOOD AND VOMIT
[2018-04-07] MEDS ORDERED: SODIUM CHLORIDE 1,000 ML IV SCH (11:30)
[2018-04-07] MEDS ORDERED: APIXABAN 5 MG TABLET PO SCH ×2 (11:51→22:00)
--- NOTE | 2018-04-07 12:10 | PN ---
Teaching Attending Note Name of Resident: Luke Drake ATTENDING PHYSICIAN STATEMENT I saw and evaluated the patient. I reviewed the resident's note and discussed the case with the resident. I agree with the resident's findings and plan as documented. SUBJECTIVE: Pt seen and examined in the ICU. Remains on HFOT. Alert, awake. Voice weak. OBJECTIVE: Vital Signs Period Temp Pulse Resp BP Sys/Ceballos Pulse Ox Last 24 Hr 98.4 F-99.6 F 94-118 14-26 102-150/61-98 96-100 Intake & Output 04/04/18 04/05/18 04/06/18 04/07/18 23:59 23:59 23:59 23:59 Intake Total 2462 1614 980 100 Output Total 2115 275 2225 850 Balance 347 5393 -8409 -594 Weight 67.132 kg 65.884 kg 63.095 kg 63.095 kg Gen: alert on HFOT Heart: tachycardic, regular Lung: decreased breath sounds at the bases Abd: soft, nontender Ext: no edema CBC, BMP 04/07/18 06:00 04/07/18 06:00 Active Medications Acetaminophen (Tylenol Oral Solution -) 650 mg PO Q6H PRN PRN Reason: FEVER Last Admin: 04/05/18 06:35 Dose: 650 mg Acetaminophen (Ofirmev Injection -) 1,000 mg IVPB Q6H PRN PRN Reason: PAIN Last Admin: 04/06/18 14:51 Dose: 1,000 mg Amino Acids (Prosource No Carb Liquid Pkt) 30 ml PO DAILY JUDY Last Admin: 04/07/18 09:26 Dose: 30 ml Apixaban (Eliquis -) 2.5 mg PO BID JUDY Apixaban (Eliquis -) 5 mg PO BID JUDY Stop: 04/14/18 22:00 Artificial Tears (Artificial Tears) 1 drop OU BID PRN PRN Reason: DRY EYES Last Admin: 03/30/18 10:34 Dose: 1 drop Meropenem 1 gm/ Dextrose 100 mls @ 200 mls/hr IVPB Q8H-IV JUDY Last Admin: 04/07/18 09:27 Dose: 200 mls/hr Insulin Aspart (Novolog Vial Sliding Scale -) 1 vial SQ ACHS [facility]; Protocol Last Admin: 04/07/18 11:48 Dose: 2 units Ondansetron HCl (Zofran Injection) 4 mg IVPUSH Q6H PRN PRN Reason: NAUSEA Ranitidine HCl (Zantac Oral Solution -) 150 mg NGT DAILY JUDY Last Admin: 04/07/18 09:27 Dose: 150 mg ASSESSMENT AND PLAN: Acute Hypoxic Respiratory Failure Pneumonia - ?Aspiration ARDS resolving Incarcerated Inguinal Hernia s/p ex-lap/segmental terminal ileum resection/primary anastamosis 03/13 r/o Acalculus Cholecystitis s/p percutaneous cholecystostomy Septic Shock resolving Acute Kidney Injury improving Lactic Acidosis resolved New onset Paroxysmal Atrial Fibrillation Diverticulosis BPH Critical Illness Polyneuropathy - antibiotics per ID, can likely d/c - rate controlled - resume anticoagulation, start NOAC - monitor urine output, creatinine - taper FiO2, flow rate to keep SpO2 >90% - start enteral feeds when ok with IR - rehab/PT - DVT/GI prophylaxis - continue ICU monitoring critical care time spent in reviewing chart, evaluating patient and formulating plan 35 min
--- NOTE | 2018-04-07 12:16 | PN ---
Physical Exam: SUBJECTIVE: Patient seen and examined. S/p PEG tube placement yesterday. Patient offers no complaints. More movement with extremities today. Able to hear voice today, but hoarse. HFNC down to 40 Flow, 35% FiO2 Tachy in the 100's-115's in the AM. OBJECTIVE: Vital Signs Period Temp Pulse Resp BP Sys/Ceballos Pulse Ox Last 24 Hr 98.4 F-99.5 F 94-118 14-26 102-150/61-98 96-100 GENERAL: The patient is awake, alert. follows commands. EYES: PERRL, sclera anicteric, conjunctiva clear. No ptosis. ENT: moist mucous membranes, lip swelling decreased LUNGS: decreased breath sounds at the bases, On high flow O2 35% FiO2 HEART: Regular rate and rhythm, S1, S2 without murmur, rub or gallop. ABDOMEN: Peg tube in place. Soft, nontender, nondistended, (+) bowel sounds. RUQ LEIF draining MSK: able to lift upper extremities, moving Lower extremities more today EXTREMITIES: no LE edema Laboratory Results - last 24 hr 04/06/18 04/06/18 04/07/18 16:35 22:22 05:46 WBC RBC Hgb Hct MCV MCH MCHC RDW Plt Count MPV Sodium Potassium Chloride Carbon Dioxide Anion Gap BUN Creatinine Creat Clearance w eGFR POC Glucometer 143.65517 133.22139 165.46750 Random Glucose Calcium Phosphorus Magnesium Total Bilirubin AST ALT Alkaline Phosphatase Total Protein Albumin 04/07/18 04/07/18 06:00 06:00 WBC 11.9 H RBC 3.89 L Hgb 11.8 Hct 34.7 L MCV 89.1 MCH 30.4 MCHC 34.1 RDW 14.8 Plt Count 609 H MPV 8.8 Sodium 136 Potassium 4.6 Chloride 104 Carbon Dioxide 24 Anion Gap 8 BUN 25 H Creatinine 0.5 L D Creat Clearance w eGFR > 60 POC Glucometer Random Glucose 137 H D Calcium 8.5 Phosphorus 3.3 Magnesium 2.3 Total Bilirubin 1.2 H AST 27 D ALT 63 Alkaline Phosphatase 207 H Total Protein 6.6 Albumin 1.6 L Active Medications Generic Name Dose Route Start Last Admin Trade Name Freq PRN Reason Stop Dose Admin Acetaminophen 650 mg 03/27/18 13:00 04/05/18 06:35 Tylenol Oral Solution - PO 650 mg Q6H PRN Administration FEVER Acetaminophen 1,000 mg 04/06/18 14:51 04/06/18 14:51 Ofirmev Injection - IVPB 1,000 mg Q6H PRN Administration PAIN Amino Acids 30 ml 03/24/18 13:00 04/07/18 09:26 Prosource No Carb Liquid Pkt PO 30 ml DAILY JUDY Administration Apixaban 2.5 mg 04/15/18 10:00 Eliquis - PO BID JUDY Apixaban 5 mg 04/07/18 11:51 Eliquis - PO 04/14/18 22:00 BID JUDY Artificial Tears 1 drop 03/24/18 10:59 03/30/18 10:34 Artificial Tears OU 1 drop BID PRN Administration DRY EYES Meropenem 1 gm/ Dextrose 100 mls @ 200 mls/hr 03/19/18 18:00 04/07/18 09:27 IVPB 200 mls/hr Q8H-IV JUDY Administration Insulin Aspart 1 vial 03/23/18 11:00 04/07/18 11:48 Novolog Vial Sliding Scale - SQ 2 units ACHS JUDY Administration Protocol Ondansetron HCl 4 mg 03/13/18 04:30 Zofran Injection IVPUSH Q6H PRN NAUSEA Ranitidine HCl 150 mg 04/03/18 11:45 04/07/18 09:27 Zantac Oral Solution - NGT 150 mg DAILY JUDY Administration ASSESSMENT/PLAN: Patient is an 82 year old male who presented with abdominal pain and was found to have SBO with bowel ischemia from incarcerated hernia and developed acute respiratory failure from septic shock. Patient admitted for further monitoring and management. Pulm: #Acute Hypoxic Respiratory Failure -Likely secondary to Septic shock from Bowel ischemia and Aspiration PNA -Patient s/p extubation (03/28) and saturating well on high flow volume , Flow rate of 40, 35% FiO2. -Maintain SpO2 >90% -Incentive spirometry -CXR with significant improvement ID: #Septic Shock secondary to SBO and bowel Ischemia -Afebrile -Patient remains off pressors -Continue Meropenem 1gm Q8H (DAY #19). -Will follow up with ID for deescalation of Abx GI: #Ischemic bowel and incarcerated inguinal Hernia -s/p ex lap and partial bowel resection (03/13) -C-TUBE in place and continues to drain bile -S/p Peg tube placement 04/06 -speech/ swallow eval, modified barium swallow -Start tube feeds Cardio: #New onset Atrial Flutter/Atrial Fibrillation -Currently rate controlled and in normal sinus rhythm -Start Eliquis, 5mg BID for 1 week, then 2.5 afterwards Vascular: #Right IJ thrombus -Heparin Drip stopped. -Eliquis Neuro: #Critical Illness Neuropathy -Continue physical therapy F/E/N -no fluids -monitor lytes -tube feeds Prophylaxis -Eliqius -Zantac 150 daily Dispo -Full code -Family not interested in [place]. territory manager looking into other options of LTACH placement. Visit type - Emergency Visit Emergency Visit: Yes ED Registration Date: 03/12/18 Care time: The patient presented to the Emergency Department on the above date and was hospitalized for further evaluation of their emergent condition. - New Patient This patient is new to me today: Yes Date on this admission: 04/07/18 - Critical Care Critical Care patient: Yes Total Critical Care Time (in minutes): 40 Critical Care Statement: The care of this patient involved high complexity decision making to prevent further life threatening deterioration of the patient 's condition and/or to evaluate & treat vital organ system(s) failure or risk of failure.
--- NOTE | 2018-04-07 13:13 | PN ---
Progress Note (short form) - Note Progress Note: Chief Complaint: resp failure History of Present Illness: s/p G tube placement yesterday. cannot speak loudly/communicate clearly denies cp - Objective Vital Signs: Current Medications Acetaminophen (Tylenol Oral Solution -) 650 mg PO Q6H PRN PRN Reason: FEVER Last Admin: 04/05/18 06:35 Dose: 650 mg Acetaminophen (Ofirmev Injection -) 1,000 mg IVPB Q6H PRN PRN Reason: PAIN Last Admin: 04/06/18 14:51 Dose: 1,000 mg Amino Acids (Prosource No Carb Liquid Pkt) 30 ml PO BID JUDY Apixaban (Eliquis -) 2.5 mg PO BID JUDY Apixaban (Eliquis -) 5 mg PO BID JUDY Stop: 04/14/18 22:00 Artificial Tears (Artificial Tears) 1 drop OU BID PRN PRN Reason: DRY EYES Last Admin: 03/30/18 10:34 Dose: 1 drop Meropenem 1 gm/ Dextrose 100 mls @ 200 mls/hr IVPB Q8H-IV JUDY Last Admin: 04/07/18 09:27 Dose: 200 mls/hr Insulin Aspart (Novolog Vial Sliding Scale -) 1 vial SQ ACHS [facility]; Protocol Last Admin: 04/07/18 11:48 Dose: 2 units Ondansetron HCl (Zofran Injection) 4 mg IVPUSH Q6H PRN PRN Reason: NAUSEA Ranitidine HCl (Zantac Oral Solution -) 150 mg NGT DAILY JUDY Last Admin: 04/07/18 09:27 Dose: 150 mg Vital Signs - 24 hr 04/06/18 04/06/18 04/06/18 14:00 14:17 16:00 Temperature 99.5 F Pulse Rate 98 H 100 H Respiratory 24 23 Rate Blood Pressure 111/65 121/69 O2 Sat by Pulse 96 Oximetry (%) 04/06/18 04/06/18 04/06/18 17:30 18:00 20:00 Temperature 98.5 F Pulse Rate 96 H 96 H Respiratory 19 26 H Rate Blood Pressure 125/68 111/63 O2 Sat by Pulse 100 100 Oximetry (%) 04/06/18 04/06/18 04/07/18 21:55 22:00 00:00 Temperature 98.9 F Pulse Rate 94 H 102 H 96 H Respiratory 24 24 Rate Blood Pressure 135/98 102/61 O2 Sat by Pulse 100 Oximetry (%) 04/07/18 04/07/18 04/07/18 02:00 03:30 04:00 Temperature 98.4 F Pulse Rate 103 H 118 H 116 H Respiratory 14 24 Rate Blood Pressure 136/69 136/74 O2 Sat by Pulse 98 Oximetry (%) 04/07/18 04/07/18 04/07/18 06:00 06:25 07:32 Temperature 98.9 F Pulse Rate 116 H Respiratory 24 Rate Blood Pressure 150/70 O2 Sat by Pulse 98 98 Oximetry (%) 04/07/18 04/07/18 04/07/18 08:00 10:00 11:36 Temperature 98.7 F Pulse Rate 110 H 115 H Respiratory 24 24 Rate Blood Pressure 127/79 129/73 O2 Sat by Pulse 97 Oximetry (%) 04/07/18 12:00 Temperature 99.6 F Pulse Rate 100 H Respiratory 22 Rate Blood Pressure 106/62 O2 Sat by Pulse Oximetry (%) Intake & Output 04/05/18 04/06/18 04/07/18 04/08/18 07:59 07:59 07:59 07:59 Intake Total 2432 1792 200 Output Total 6397 093 3693 Balance 1177 942 -2150 Weight 145 lb 4 oz 139 lb 1.6 oz 139 lb 1.6 oz nad no jvd, on HFNC ctab, poor eff rrr nl s1s2 no mrg + bs soft nt nd no e/c/c no jaundice, + diaphoresis alert + DP/PT Labs: CBC, BMP 04/07/18 06:00 04/07/18 06:00 Laboratory Tests 04/07/18 06:00 Total Bilirubin 1.2 H AST 27 D ALT 63 Alkaline Phosphatase 207 H tele: sr/sinus tach ecg: sr, nl intervals, no ischemic changes head ct: no acute pathology echo 02/2018: nl lv/rv, mild mr/tr/ar RUE u/s: nonocclusive thrombus in Rt int jugular vein. Assessment/Plan a/p: 82 m hx gerd, bph, here with abd pain/sepsis - found to have sbo, now s/p OR hospital course c/b new afib. septic shock/sbo/cholecystitis/asp pna: -s/p ex-lap/segmental terminal ileum resection/primary anastamosis 03/13 -Suspected Acalculus Cholecystitis s/p percutaneous cholecystostomy 03/20 -asp pna -now extubated, off pressors. bp stable. cont abx per ID. - +++ weakness, improving slowly. Has plan for Peg placement friday. -receiving IV lasix prn per CXR appearing congested. Last lasix 03/31. Resp status and CXR stable. new pafib --> conversion to sr: -new onset here. rate controlled w/o meds. 03/25 converted to sr-->remains in sinus -echo unremarkable -chadsvasc warrants ac. continue UFH gtt. Has plan for PEG. Will ltransition to noac after peg placement once ok per GI. RUE DVT - AC as above.
--- NOTE | 2018-04-07 14:30 | PN ---
Progress Note, SCENE PAINTER - Note Progress Note: Educated pt's on ways to facilitate improved pulmonary function, phonation , communication.. Deep breath and say AH! -Hold it [id number]! -repeat it AH! AH! AH! Deep breath and count- Breathe in 1 ! Breathe in 2 ! ........ Functional words Breathe in-Hello. Goodbye. Thank you. Turn me. Sit up. Lie down. TV. I love you. Mouth care/Swallow hard, throughout the day Review [facility]. Day.Month. Year. President. State. Family names Name as many as you can think of animal.colors. states. countries. etc.
--- NOTE | 2018-04-07 14:54 | PN ---
Progress Note, DRENCHER - Note Progress Note: Excellent performance today, taking deeper breathes and vocalizing. Aphonia with some dysphonic, audible words produced. Spontaneously producing some social speech eg I need to go to the bathroom. Thank you. Now coughing and expectorating thick white secretions c/w stronger pharyngeal function. Swallow reflex elicited several times. Continue vocal exercises to improve glottic closure/airway protection. For MBS as pt gets stronger. Excellent rehab candidate.
--- NOTE | 2018-04-07 15:35 | PN ---
Progress Note, Physician History of Present Illness: patient doing much better no complaints patient with peg tube in place feeding started still wbc slightly on the higher side - Current Medication List Current Medications: Active Medications Acetaminophen (Tylenol Oral Solution -) 650 mg PO Q6H PRN PRN Reason: FEVER Last Admin: 04/05/18 06:35 Dose: 650 mg Acetaminophen (Ofirmev Injection -) 1,000 mg IVPB Q6H PRN PRN Reason: PAIN Last Admin: 04/06/18 14:51 Dose: 1,000 mg Amino Acids (Prosource No Carb Liquid Pkt) 30 ml PO BID [facility] Apixaban (Eliquis -) 2.5 mg PO BID JUDY Apixaban (Eliquis -) 5 mg PO BID [facility] Stop: 04/14/18 22:00 Artificial Tears (Artificial Tears) 1 drop OU BID PRN PRN Reason: DRY EYES Last Admin: 03/30/18 10:34 Dose: 1 drop Insulin Aspart (Novolog Vial Sliding Scale -) 1 vial SQ [facility]; Protocol Last Admin: 04/07/18 11:48 Dose: 2 units Ondansetron HCl (Zofran Injection) 4 mg IVPUSH Q6H PRN PRN Reason: NAUSEA Ranitidine HCl (Zantac Oral Solution -) 150 mg NGT DAILY [facility] Last Admin: 04/07/18 09:27 Dose: 150 mg - Objective Vital Signs: Vital Signs Temperature 99.6 F 04/07/18 12:00 Pulse Rate 103 H 04/07/18 14:00 Respiratory Rate 25 H 04/07/18 14:00 Blood Pressure 111/65 04/07/18 14:00 O2 Sat by Pulse Oximetry (%) 97 04/07/18 11:36 Constitutional: Yes: No Distress, Calm Cardiovascular: Yes: Regular Rate and Rhythm Respiratory: Yes: On Nasal O2, Other Gastrointestinal: Yes: Normal Bowel Sounds, Soft, Other (peg tube in place) Musculoskeletal: Yes: WNL Extremities: Yes: WNL Neurological: Yes: Alert, Oriented Psychiatric: Yes: Alert, Oriented Labs: CBC, BMP 04/07/18 06:00 04/07/18 06:00 INR, PTT INR 1.29 (0.82-1.09) H 04/06/18 05:20 Assessment/Plan Problem List - Problems (1) Strangulated inguinal hernia Pulmonary evaluation - weaning today? GI Evaluation - Tbili 3.5, 3.6 BP goal MAP 65-70, has a stapled small bowel anastomosis avoid lwo flow states will follow Code(s): K40.30 - UNIL INGUINAL HERNIA, W OBST, W/O GANGR, NOT SPCF RECUR (2) Incarcerated left inguinal hernia Code(s): K40.30 - UNIL INGUINAL HERNIA, W OBST, W/O GANGR, NOT SPCF RECUR (3) BPH (benign prostatic hyperplasia) Code(s): N40.0 - BENIGN PROSTATIC HYPERPLASIA WITHOUT LOWER URINRY TRACT SYMP Qualifiers: Lower urinary tract symptom presence: symptoms present Lower urinary tract symptom detail: urinary frequency Qualified Code(s): N40.1 - Benign prostatic hyperplasia with lower urinary tract symptoms; R35.0 - Frequency of micturition ; R35.0 - Frequency of micturition (4) DDD (degenerative disc disease), cervical Code(s): M50.30 - OTHER CERVICAL DISC DEGENERATION, UNSP CERVICAL REGION (5) SBO (small bowel obstruction) Code(s): K56.609 - UNSP INTESTNL OBST, UNSP TO PARTIAL VERSUS COMPLETE OBST (6) Aspiration pneumonia of both lower lobes due to gastric secretions Code(s): J69.0 - PNEUMONITIS DUE TO INHALATION OF FOOD AND VOMIT r/o acalculus choley plan will stop abx monitor wbc close watch chest pt rest as per icu xray labs noted patient improving nutrition peg tube feeding cc 40 min
[2018-04-07] MEDS: APIXABAN 5 MG TABLET PO SCH ×2 (15:40→22:24)
--- NOTE | 2018-04-07 17:54 | PN ---
Teaching Attending Note Name of Resident: Mukul White ATTENDING PHYSICIAN STATEMENT I saw and evaluated the patient. I reviewed the resident's note and discussed the case with the resident. I agree with the resident's findings and plan as documented. SUBJECTIVE: OBJECTIVE: Vital Signs Temperature 99.6 F 04/07/18 12:00 Pulse Rate 110 H 04/07/18 16:00 Respiratory Rate 28 H 04/07/18 16:00 Blood Pressure 109/60 04/07/18 16:00 O2 Sat by Pulse Oximetry (%) 97 04/07/18 11:36 CBCD WBC 11.9 K/mm3 (4.0-10.0) H 04/07/18 06:00 RBC 3.89 M/mm3 (4.00-5.60) L 04/07/18 06:00 Hgb 11.8 GM/dL (11.7-16.9) 04/07/18 06:00 Hct 34.7 % (35.4-49) L 04/07/18 06:00 MCV 89.1 fl (80-96) 04/07/18 06:00 MCHC 34.1 g/dl (32.0-35.9) 04/07/18 06:00 RDW 14.8 % (11.9-15.9) 04/07/18 06:00 Plt Count 609 K/MM3 (134-434) H 04/07/18 06:00 MPV 8.8 fl (7.5-11.1) 04/07/18 06:00 CMP Sodium 136 mmol/L (136-145) 04/07/18 06:00 Potassium 4.6 mmol/L (3.5-5.1) 04/07/18 06:00 Chloride 104 mmol/L (98-107) 04/07/18 06:00 Carbon Dioxide 24 mmol/L (21-32) 04/07/18 06:00 Anion Gap 8 (8-16) 04/07/18 06:00 BUN 25 mg/dL (7-18) H 04/07/18 06:00 Creatinine 0.5 mg/dL (0.7-1.3) L D 04/07/18 06:00 Creat Clearance w eGFR > 60 (>60) 04/07/18 06:00 Random Glucose 137 mg/dL (74-106) H D 04/07/18 06:00 Calcium 8.5 mg/dL (8.5-10.1) 04/07/18 06:00 Total Bilirubin 1.2 mg/dL (0.2-1.0) H 04/07/18 06:00 AST 27 U/L (15-37) D 04/07/18 06:00 ALT 63 U/L (12-78) 04/07/18 06:00 Alkaline Phosphatase 207 U/L (45-117) H 04/07/18 06:00 Total Protein 6.6 g/dl (6.4-8.2) 04/07/18 06:00 Albumin 1.6 g/dl (3.4-5.0) L 04/07/18 06:00 CARDIAC ENZYMES Creatine Kinase 327 IU/L (39-308) H 03/19/18 20:09 Troponin I 0.03 ng/ml (0.00-0.05) D 03/19/18 20:09 Current Medications Generic Name Dose Route Start Last Admin Trade Name Freq PRN Reason Stop Dose Admin Acetaminophen 650 mg 03/27/18 13:00 04/05/18 06:35 Tylenol Oral Solution - PO 650 mg Q6H PRN Administration FEVER Acetaminophen 1,000 mg 04/06/18 14:51 04/06/18 14:51 Ofirmev Injection - IVPB 1,000 mg Q6H PRN Administration PAIN Amino Acids 30 ml 04/07/18 22:00 Prosource No Carb Liquid Pkt PO BID JUDY Apixaban 2.5 mg 04/15/18 10:00 Eliquis - PO BID JUDY Apixaban 5 mg 04/07/18 15:45 04/07/18 15:40 Eliquis - PO 04/14/18 23:00 5 mg BID JUDY Administration Artificial Tears 1 drop 03/24/18 10:59 03/30/18 10:34 Artificial Tears OU 1 drop BID PRN Administration DRY EYES Insulin Aspart 1 vial 03/23/18 11:00 04/07/18 17:06 Novolog Vial Sliding Scale - SQ Not Given ACHS [facility] Protocol Ondansetron HCl 4 mg 03/13/18 04:30 Zofran Injection IVPUSH Q6H PRN NAUSEA Ranitidine HCl 150 mg 04/03/18 11:45 04/07/18 09:27 Zantac Oral Solution - NGT 150 mg DAILY JUDY Administration Home Medications Medication Instructions Recorded Finasteride 5 mg PO DAILY 03/12/18 Omeprazole 20 mg PO DAILY 03/12/18 Tamsulosin HCl 0.4 mg PO DAILY 03/12/18 ASSESSMENT/PLAN: Patient is an 82 y/o male with h/o DJD, GERD, diverticulosis who presented with abdominal pain and was found to have SBO with bowel ischemia , with incarcerated hernia and developed acute respiratory failure and septic shock. # Acute hypoxic respirstory failure s/p intubation and extubation due to severe sepsis and b/l PNA /ARDS. off IV antibiotic, patient is doing well on high flow oxygen now, possible NC in am # Septic shock. resolved on Iv Mereponem # S/p Exploratory Laparotomy, segmental terminal ileum ressection with primary anastomosis. on 03/13/2018. Ischemic bowel and incarcerated inguinal hernia repair. # s/p cholecystostomy tube ,surgery on the case Dr. Nance.and as per Radiology to keep it for 6-8 weeks, still draining. s/p Peg tube placement by IR on 2017, will start tube feed as per Senior Game Advisor recommendations #New onset A flutter/A fib , on Eliquis now started today , now in sinus rhythm. off heparin gtt. # R IJ thrombus /DVT: on Eliquis now DVT Px: Mireillesuha Patient's family is looking for LTAc placement in [place] and [facility].
[2018-04-07] MEDS: MELATONIN 5 MG TABLETS NR PRN (22:25)
[2018-04-07] MEDS: LYTES/YERBA SANTA 240 ML BOTTLE MM SCH (22:26)
[2018-04-07] MEDS ORDERED: APIXABAN 2.5 MG TABLET PO SCH (22:30)
[2018-04-08] MEDS: INSULIN SLIDING SCALE (NOVOLOG) 1 VIAL SQ SCH ×4 (06:08→22:20)
[2018-04-08 06:10] LABS: HEMATOCRIT 34.6 % (35.4-49); HEMOGLOBIN 11.9 GM/dL (11.7-16.9); MCH 30.7 pg (25.7-33.7); MCHC 34.4 g/dl (32.0-35.9); MEAN CELL VOLUME 89.3 fl (80-96); MEAN PLT VOLUME 8.1 fl (7.5-11.1); PLATELET COUNT 566 K/MM3 (134-434); RBC 3.87 M/mm3 (4.00-5.60); WHITE BLOOD COUNT 8.7 K/mm3 (4.0-10.0)
[2018-04-08 06:46] LABS: ALBUMIN 1.7 g/dl (3.4-5.0); ANION GAP 10 (8-16); BLOOD UREA NITROGEN 28 mg/dL (7-18); CALCIUM 8.8 mg/dL (8.5-10.1); CHLORIDE 106 mmol/L (98-107); CO2 25 mmol/L (21-32); GLUCOSE,RANDOM 136 mg/dL (74-106); MAGNESIUM 2.4 mg/dL (1.8-2.4); SGOT/AST 27 U/L (15-37); SODIUM 141 mmol/L (136-145)
[2018-04-08 06:48] LABS: ALK PHOS 199 U/L (45-117); BILIRUBIN,TOTAL 1.1 mg/dL (0.2-1.0); CREATININE 0.5 mg/dL (0.7-1.3); PHOSPHOROUS 3.4 mg/dL (2.5-4.9); SGPT/ALT 51 U/L (12-78); TOT PROT 6.4 g/dl (6.4-8.2)
--- NOTE | 2018-04-08 08:15 | PN ---
Physical Exam: SUBJECTIVE: Patient seen and examined. Offers no complaints. Following commands. Moving both upper and lower extremities. HFNC Flow 30, Fio2 of 30% Tolerating tube feeds Antibiotics stopped yesterday. OBJECTIVE: Vital Signs Period Temp Pulse Resp BP Sys/Ceballos Pulse Ox Last 24 Hr 98.5 F-100 F 84-115 18-28 97-130/51-80 97-99 GENERAL: The patient is awake, alert. follows commands. EYES: PERRL, sclera anicteric, conjunctiva clear. No ptosis. ENT: moist mucous membranes, lip swelling decreased LUNGS: decreased breath sounds at the bases, On high flow O2 HEART: Regular rate and rhythm, S1, S2 without murmur, rub or gallop. ABDOMEN: Peg tube in place. Soft, nontender, nondistended, (+) bowel sounds. RUQ LEIF draining MSK: able to lift upper extremities, moving Lower extremities more today EXTREMITIES: no LE edema Laboratory Results - last 24 hr 04/05/18 04/06/18 04/06/18 23:07 06:18 11:42 WBC RBC Hgb Hct MCV MCH MCHC RDW Plt Count MPV Sodium Potassium Chloride Carbon Dioxide Anion Gap BUN Creatinine Creat Clearance w eGFR POC Glucometer 152.35481 315.14106 133.27801 Random Glucose Calcium Phosphorus Magnesium Total Bilirubin AST ALT Alkaline Phosphatase Total Protein Albumin 04/07/18 04/07/18 04/08/18 11:45 16:56 05:55 WBC 8.7 RBC 3.87 L Hgb 11.9 Hct 34.6 L MCV 89.3 MCH 30.7 MCHC 34.4 RDW 15.0 Plt Count 566 H MPV 8.1 Sodium Potassium Chloride Carbon Dioxide Anion Gap BUN Creatinine Creat Clearance w eGFR POC Glucometer 164.78162 149.39365 Random Glucose Calcium Phosphorus Magnesium Total Bilirubin AST ALT Alkaline Phosphatase Total Protein Albumin 04/08/18 05:55 WBC RBC Hgb Hct MCV MCH MCHC RDW Plt Count MPV Sodium 141 Potassium 4.0 Chloride 106 Carbon Dioxide 25 Anion Gap 10 BUN 28 H Creatinine 0.5 L Creat Clearance w eGFR > 60 POC Glucometer Random Glucose 136 H Calcium 8.8 Phosphorus 3.4 Magnesium 2.4 Total Bilirubin 1.1 H AST 27 ALT 51 Alkaline Phosphatase 199 H Total Protein 6.4 Albumin 1.7 L Active Medications Generic Name Dose Route Start Last Admin Trade Name Freq PRN Reason Stop Dose Admin Acetaminophen 650 mg 03/27/18 13:00 04/05/18 06:35 Tylenol Oral Solution - PO 650 mg Q6H PRN Administration FEVER Acetaminophen 1,000 mg 04/06/18 14:51 04/06/18 14:51 Ofirmev Injection - IVPB 1,000 mg Q6H PRN Administration PAIN Amino Acids 30 ml 04/07/18 22:00 04/07/18 21:18 Prosource No Carb Liquid Pkt PO 30 ml BID JUDY Administration Apixaban 5 mg 04/07/18 15:45 04/07/18 22:24 Eliquis - PO 04/14/18 23:00 5 mg BID JUDY Administration Apixaban 2.5 mg 04/15/18 10:00 Eliquis - PO BID JUDY Artificial Tears 1 drop 03/24/18 10:59 03/30/18 10:34 Artificial Tears OU 1 drop BID PRN Administration DRY EYES Insulin Aspart 1 vial 03/23/18 11:00 04/08/18 06:08 Novolog Vial Sliding Scale - SQ 2 units ACHS JUDY Administration Protocol Melatonin 5 mg 04/07/18 22:00 04/07/18 22:25 Melatonin NR 5 mg HS PRN Administration INSOMNIA Ondansetron HCl 4 mg 03/13/18 04:30 Zofran Injection IVPUSH Q6H PRN NAUSEA Ranitidine HCl 150 mg 04/03/18 11:45 04/07/18 09:27 Zantac Oral Solution - NGT 150 mg DAILY JUDY Administration Saliva Substitute 1 applic 04/07/18 22:13 04/07/18 22:26 Mouthkote Solution - MM 1 applic DAILY JUDY Administration ASSESSMENT/PLAN: Patient is an 82 year old male who presented with abdominal pain and was found to have SBO with bowel ischemia from incarcerated hernia and developed acute respiratory failure from septic shock. Patient admitted for further monitoring and management. Pulm: #Acute Hypoxic Respiratory Failure -Likely secondary to Septic shock from Bowel ischemia and Aspiration PNA -Patient s/p extubation (03/28) and saturating well on high flow volume , Flow rate of 30, 30% FiO2. -Plan to switch to Nasal Cannula in the afternoon -Maintain SpO2 >90% -Incentive spirometry -CXR with significant improvement ID: #Septic Shock secondary to SBO and bowel Ischemia -Afebrile -Patient remains off pressors -Completed IV Abx: Meropenem -improved GI: #Ischemic bowel and incarcerated inguinal Hernia -s/p ex lap and partial bowel resection (03/13) -C-TUBE in place and continues to drain bile -S/p Peg tube placement 04/06 -speech/ swallow eval, modified barium swallow -Cont. tube feeds Cardio: #New onset Atrial Flutter/Atrial Fibrillation -Currently rate controlled and in normal sinus rhythm -Cont. Eliquis, 5mg BID for 1 week, then 2.5 afterwards Vascular: #Right IJ thrombus -Eliquis Neuro: #Critical Illness Neuropathy -Continue physical therapy F/E/N -no fluids -monitor lytes -tube feeds Prophylaxis -Eliqius -Zantac 150 daily Dispo -Full code -contract manager looking into other options of LTACH placement. Visit type - Emergency Visit Emergency Visit: Yes ED Registration Date: 03/12/18 Care time: The patient presented to the Emergency Department on the above date and was hospitalized for further evaluation of their emergent condition. - New Patient This patient is new to me today: No - Critical Care Critical Care patient: Yes Total Critical Care Time (in minutes): 40 Critical Care Statement: The care of this patient involved high complexity decision making to prevent further life threatening deterioration of the patient 's condition and/or to evaluate & treat vital organ system(s) failure or risk of failure.
[2018-04-08] MEDS: AMINO ACIDS/PROTEIN HYDROLYS 30 ML LIQUID.PKT PO SCH ×2 (09:08→21:17)
[2018-04-08] MEDS: APIXABAN 5 MG TABLET PO SCH ×3 (09:08→21:17)
[2018-04-08] MEDS: RANITIDINE HCL 150 MG/10 ML UNIT-DOSE NGT SCH (09:09)
--- NOTE | 2018-04-08 09:10 | PN ---
Physical Exam: SUBJECTIVE: No acute events. no complaints. OBJECTIVE: Vital Signs Period Temp Pulse Resp BP Sys/Ceballos Pulse Ox Last 24 Hr 98.5 F-100 F 84-115 18-28 97-130/51-80 97-99 GENERAL: NAD, alert today. HEENT: KITTY, EOMI, L nare NG intact, MMM, lip edema resolving Neck: no JVD LUNGS: Aeration of lungs down to the bases. no overt rhonchi or rales . On high flow O2 30L/min. 30% FiO2 HEART: RRR, S1, S2 without murmur ABDOMEN: Soft, nondistended, nontender, C-tube draining brown fluid NEURO: Strength 5/5 in lower extremities, pt can now move arms weakly into supination by himself. 2-3/5 strength in Upper extremities. EXTREMITIES: 2+ DP pulses, warm, no edema today SKIN: Warm, dry, no rash or lesions currently Laboratory Results - last 24 hr 04/05/18 04/06/18 04/06/18 23:07 06:18 11:42 WBC RBC Hgb Hct MCV MCH MCHC RDW Plt Count MPV Sodium Potassium Chloride Carbon Dioxide Anion Gap BUN Creatinine Creat Clearance w eGFR POC Glucometer 152.64635 315.21195 133.35771 Random Glucose Calcium Phosphorus Magnesium Total Bilirubin AST ALT Alkaline Phosphatase Total Protein Albumin 04/07/18 04/07/18 04/08/18 11:45 16:56 05:55 WBC 8.7 RBC 3.87 L Hgb 11.9 Hct 34.6 L MCV 89.3 MCH 30.7 MCHC 34.4 RDW 15.0 Plt Count 566 H MPV 8.1 Sodium Potassium Chloride Carbon Dioxide Anion Gap BUN Creatinine Creat Clearance w eGFR POC Glucometer 164.90944 149.67477 Random Glucose Calcium Phosphorus Magnesium Total Bilirubin AST ALT Alkaline Phosphatase Total Protein Albumin 04/08/18 05:55 WBC RBC Hgb Hct MCV MCH MCHC RDW Plt Count MPV Sodium 141 Potassium 4.0 Chloride 106 Carbon Dioxide 25 Anion Gap 10 BUN 28 H Creatinine 0.5 L Creat Clearance w eGFR > 60 POC Glucometer Random Glucose 136 H Calcium 8.8 Phosphorus 3.4 Magnesium 2.4 Total Bilirubin 1.1 H AST 27 ALT 51 Alkaline Phosphatase 199 H Total Protein 6.4 Albumin 1.7 L Active Medications Generic Name Dose Route Start Last Admin Trade Name Franklinq PRN Reason Stop Dose Admin Acetaminophen 650 mg 03/27/18 13:00 04/05/18 06:35 Tylenol Oral Solution - PO 650 mg Q6H PRN Administration FEVER Acetaminophen 1,000 mg 04/06/18 14:51 04/06/18 14:51 Ofirmev Injection - IVPB 1,000 mg Q6H PRN Administration PAIN Amino Acids 30 ml 04/07/18 22:00 04/07/18 21:18 Prosource No Carb Liquid Pkt PO 30 ml BID JUDY Administration Apixaban 5 mg 04/07/18 15:45 04/07/18 22:24 Eliquis - PO 04/14/18 23:00 5 mg BID JUDY Administration Apixaban 2.5 mg 04/15/18 10:00 Eliquis - PO BID JUDY Artificial Tears 1 drop 03/24/18 10:59 03/30/18 10:34 Artificial Tears OU 1 drop BID PRN Administration DRY EYES Insulin Aspart 1 vial 03/23/18 11:00 04/08/18 06:08 Novolog Vial Sliding Scale - SQ 2 units ACHS JUDY Administration Protocol Melatonin 5 mg 04/07/18 22:00 04/07/18 22:25 Melatonin NR 5 mg HS PRN Administration INSOMNIA Ondansetron HCl 4 mg 03/13/18 04:30 Zofran Injection IVPUSH Q6H PRN NAUSEA Ranitidine HCl 150 mg 04/03/18 11:45 04/07/18 09:27 Zantac Oral Solution - NGT 150 mg DAILY JUDY Administration Saliva Substitute 1 applic 04/07/18 22:13 04/07/18 22:26 Mouthkote Solution - MM 1 applic DAILY JUDY Administration ASSESSMENT/PLAN: 1) Acute hypoxic respiratory failure --Resolving, extubated; 6/ --Continue High flow O2 and maintain maintain SpO2 >90% --Current setting 30L/min and 30% FiO2 --> --Aspiration precautions: HOB elevated 2) Toxic metabolic neuropathy --Continue PT --Awaiting evaluation for LTAC at [place] for intensive physical therapy --When pt reinitiates feed through G-tube can start on NOAC orally for AC rather than heparin gtt to minimize fluid intake --IR PEG placed --> Perative per dietary recommendation 3) Septic shock 2/2 to bowel ischemia in addition to aspiration PNA --ID on board --Meropenem continues 4) Elevated LFTs --Stable --Discussed with IR and will need to keep C-tube for long duration before pulling 5) Atrial flutter/fib --Cardiology consulted --Eliquis 5mg GT BID --Echo unremarkable FEN: Fluids: Avoid Nutrition: Perative and Prosource BID PPX: DVT - Eliquis as above GI - Protonix 40mg IVP daily Dispo: looking at LTAC's in [place], [place], and other [place] location. Case discussed with Dr. Mati White, DO - IM PGY-1 Visit type - Emergency Visit Emergency Visit: No - New Patient This patient is new to me today: No - Critical Care Critical Care patient: No
[2018-04-08] MEDS: LYTES/YERBA SANTA 240 ML BOTTLE MM SCH (09:11)
--- NOTE | 2018-04-08 10:57 | PN ---
Teaching Attending Note Name of Resident: Luke Drake ATTENDING PHYSICIAN STATEMENT I saw and evaluated the patient. I reviewed the resident's note and discussed the case with the resident. I agree with the resident's findings and plan as documented. SUBJECTIVE: Pt seen and examined in the ICU. Remains on HFOT 30L/min, 30%. Muscle strength improving. OBJECTIVE: Vital Signs Period Temp Pulse Resp BP Sys/Ceballos Pulse Ox Last 24 Hr 98.5 F-100 F 84-112 18-28 97-130/51-80 97-99 Intake & Output 04/05/18 04/06/18 04/07/18 04/08/18 23:59 23:59 23:59 23:59 Intake Total 1614 980 520 240 Output Total 275 2225 920 100 Balance 1339 -1245 -400 140 Weight 65.884 kg 63.095 kg 63.095 kg 64.047 kg Gen: less tachypneic Heart: RRR Lung: decreased breath sounds at the bases Abd: soft, nontender Ext: no edema CBC, BMP 04/08/18 05:55 04/08/18 05:55 Active Medications Acetaminophen (Tylenol Oral Solution -) 650 mg PO Q6H PRN PRN Reason: FEVER Last Admin: 04/05/18 06:35 Dose: 650 mg Acetaminophen (Ofirmev Injection -) 1,000 mg IVPB Q6H PRN PRN Reason: PAIN Last Admin: 04/06/18 14:51 Dose: 1,000 mg Amino Acids (Prosource No Carb Liquid Pkt) 30 ml PO BID [facility] Last Admin: 04/08/18 09:08 Dose: 30 ml Apixaban (Eliquis -) 5 mg PO BID [facility] Artificial Tears (Artificial Tears) 1 drop OU BID PRN PRN Reason: DRY EYES Last Admin: 03/30/18 10:34 Dose: 1 drop Insulin Aspart (Novolog Vial Sliding Scale -) 1 vial SQ ACHS [facility]; Protocol Last Admin: 04/08/18 06:08 Dose: 2 units Melatonin (Melatonin) 5 mg NR HS PRN PRN Reason: INSOMNIA Last Admin: 04/07/18 22:25 Dose: 5 mg Ondansetron HCl (Zofran Injection) 4 mg IVPUSH Q6H PRN PRN Reason: NAUSEA Ranitidine HCl (Zantac Oral Solution -) 150 mg NGT DAILY [facility] Last Admin: 04/08/18 09:09 Dose: 150 mg Saliva Substitute (Mouthkote Solution -) 1 applic MM DAILY [facility] Last Admin: 04/08/18 09:11 Dose: 1 applic ASSESSMENT AND PLAN: Acute Hypoxic Respiratory Failure improving Pneumonia - ?Aspiration ARDS resolving Incarcerated Inguinal Hernia s/p ex-lap/segmental terminal ileum resection/primary anastamosis 03/13 r/o Acalculus Cholecystitis s/p percutaneous cholecystostomy Septic Shock resolving Acute Kidney Injury improving Lactic Acidosis resolved New onset Paroxysmal Atrial Fibrillation Diverticulosis BPH Critical Illness Polyneuropathy - rate controlled - continue anticoagulation - monitor urine output, creatinine - taper FiO2, flow rate to keep SpO2 >90% - hope to transition to nasal cannula in next 1-2 days - enteral feeds - rehab/PT - DVT/GI prophylaxis - continue ICU monitoring critical care time spent in reviewing chart, evaluating patient and formulating plan 35 min
--- NOTE | 2018-04-08 12:17 | PN ---
Progress Note (short form) - Note Progress Note: Chief Complaint: septic shock History of Present Illness: awake, but minimally interactive. not communicating well. no overnight events. Current Medications Generic Name Dose Route Start Last Admin Trade Name Tushar PRN Reason Stop Dose Admin Acetaminophen 650 mg 03/27/18 13:00 04/05/18 06:35 Tylenol Oral Solution - PO 650 mg Q6H PRN Administration FEVER Acetaminophen 1,000 mg 04/06/18 14:51 04/06/18 14:51 Ofirmev Injection - IVPB 1,000 mg Q6H PRN Administration PAIN Amino Acids 30 ml 04/07/18 22:00 04/08/18 09:08 Prosource No Carb Liquid Pkt PO 30 ml BID [facility] Administration Apixaban 5 mg 04/08/18 11:15 04/08/18 11:49 Eliquis - PO Not Given BID [facility] Artificial Tears 1 drop 03/24/18 10:59 03/30/18 10:34 Artificial Tears OU 1 drop BID PRN Administration DRY EYES Insulin Aspart 1 vial 03/23/18 11:00 04/08/18 11:50 Novolog Vial Sliding Scale - SQ 2 units ACHS [facility] Administration Protocol Melatonin 5 mg 04/07/18 22:00 04/07/18 22:25 Melatonin NR 5 mg HS PRN Administration INSOMNIA Ondansetron HCl 4 mg 03/13/18 04:30 Zofran Injection IVPUSH Q6H PRN NAUSEA Ranitidine HCl 150 mg 04/03/18 11:45 04/08/18 09:09 Zantac Oral Solution - NGT 150 mg DAILY [facility] Administration Saliva Substitute 1 applic 04/07/18 22:13 04/08/18 09:11 Mouthkote Solution - MM 1 applic DAILY [facility] Administration Vital Signs Period Temp Pulse Resp BP Sys/Ceballos Pulse Ox Last 24 Hr 98.5 F-100 F 84-112 18-28 97-130/51-80 97-99 nad no jvd trace bibasilar rales, poor eff rrr nl s1s2 no mrg + bs soft nt nd trace dependent edema bl, no c/c no jaundice diaphoresis lethargic Labs: CBC, BMP 04/08/18 05:55 04/08/18 05:55 tele: sr/sinus tach ecg: sr, nl intervals, no ischemic changes head ct: no acute pathology echo 02/2018: nl lv/rv, mild mr/tr/ar RUE u/s: nonocclusive thrombus in Rt int jugular vein. a/p: 82 m hx gerd, bph, here with abd pain/sepsis - found to have sbo, now s/p OR hospital course c/b new afib. septic shock/sbo/cholecystitis/asp pna: -s/p ex-lap/segmental terminal ileum resection/primary anastamosis 03/13 -Suspected Acalculus Cholecystitis s/p percutaneous cholecystostomy 03/20 -asp pna -now extubated, off pressors. bp stable. abx per ID. -Peg -receiving IV lasix prn per CXR appearing congested. new pafib --> conversion to sr: -new onset here. rate controlled w/o meds. 03/25 converted to sr-->remains in sinus -echo unremarkable -chadsvasc warrants ac. continue eliquis. RUE DVT - AC as above.
--- NOTE | 2018-04-08 12:43 | PN ---
Progress Note, DIRECTOR OF DEVELOPMENT - Note Progress Note: Seen OOB in chair. Educated family on speech/swallowing exercises and ways to improve vocal quality and volume. Swallowing saliva intermittently. Delayed onset and weak laryngeal excursion/vom Voice aphonic/at times hypophonic/ but improving.
--- NOTE | 2018-04-08 15:10 | PN ---
Teaching Attending Note Name of Resident: Mukul White ATTENDING PHYSICIAN STATEMENT I saw and evaluated the patient. I reviewed the resident's note and discussed the case with the resident. I agree with the resident's findings and plan as documented. SUBJECTIVE: No fever or chills. No abd pain . no SOB OBJECTIVE: Awake , follows some commands .moves all extremities minimally . horse low voice CV: RRR. Lungs;decreased breath sounds at bases Abd: + BS. mid line surgical wound. RUQ LEIF drain with brown fluid. Ext: 1+ edema on LE ASSESSMENT AND PLAN: Unfortunate 82 y/o gentleman with h/o DJD, GERD, diverticulosis and other medical problems who presented with abd pain and was found to have SBO with bowel ischemia , and incarcerated hernia and developed acute resp failure and septic shock. 1- Acute hypoxic resp failure. due to severe sepsis and b/l PNA /ARDS. improved . - possible transition to regular NC 2- Septic shock. resolved - off Abx 3- Ischemic bowel and incarcerated inguinal hernia : s/p exploratory laparotomy and partial small bowel resection. 4- Possible acalculus cholecystitis : s/p cholecystostomy tube -cont with cholycystostomy tube 5-New onset A flutter/A fib: now in sinus rhythm. - cont eliquis at 5 . will not decrease dose - rate controlled 6- R IJ thrombus /DVT: - Eliquis with no dose decrease. has been on heparin for > 1 week 7- S/P PEG: cont TF 8- ICU neuropathy. improving slowly dispo For LTAC placement when facility is found
--- NOTE | 2018-04-08 16:49 | PN ---
Progress Note, Physician History of Present Illness: patient doing much better no complaints wbc normal high flow oxygen decreasing - Current Medication List Current Medications: Active Medications Acetaminophen (Tylenol Oral Solution -) 650 mg PO Q6H PRN PRN Reason: FEVER Last Admin: 04/05/18 06:35 Dose: 650 mg Acetaminophen (Ofirmev Injection -) 1,000 mg IVPB Q6H PRN PRN Reason: PAIN Last Admin: 04/06/18 14:51 Dose: 1,000 mg Amino Acids (Prosource No Carb Liquid Pkt) 30 ml PO BID [facility] Last Admin: 04/08/18 09:08 Dose: 30 ml Apixaban (Eliquis -) 5 mg PO BID [facility] Last Admin: 04/08/18 11:49 Dose: Not Given Artificial Tears (Artificial Tears) 1 drop OU BID PRN PRN Reason: DRY EYES Last Admin: 03/30/18 10:34 Dose: 1 drop Insulin Aspart (Novolog Vial Sliding Scale -) 1 vial SQ [facility]; Protocol Last Admin: 04/08/18 11:50 Dose: 2 units Melatonin (Melatonin) 5 mg NR HS PRN PRN Reason: INSOMNIA Last Admin: 04/07/18 22:25 Dose: 5 mg Ondansetron HCl (Zofran Injection) 4 mg IVPUSH Q6H PRN PRN Reason: NAUSEA Ranitidine HCl (Zantac Oral Solution -) 150 mg NGT DAILY [facility] Last Admin: 04/08/18 09:09 Dose: 150 mg Saliva Substitute (Mouthkote Solution -) 1 applic MM DAILY [facility] Last Admin: 04/08/18 09:11 Dose: 1 applic - Objective Vital Signs: Vital Signs Temperature 98.6 F 04/08/18 10:21 Pulse Rate 95 H 04/08/18 14:00 Respiratory Rate 28 H 04/08/18 14:00 Blood Pressure 104/68 04/08/18 14:00 O2 Sat by Pulse Oximetry (%) 98 04/08/18 10:00 Constitutional: Yes: No Distress, Calm Cardiovascular: Yes: Regular Rate and Rhythm Respiratory: Yes: Regular, CTA Bilaterally Gastrointestinal: Yes: Normal Bowel Sounds, Soft, Other (peg tube in place) Musculoskeletal: Yes: WNL Extremities: Yes: WNL Neurological: Yes: Alert, Oriented Psychiatric: Yes: Alert, Oriented Labs: CBC, BMP 04/08/18 05:55 04/08/18 05:55 INR, PTT INR 1.29 (0.82-1.09) H 04/06/18 05:20 Assessment/Plan Problem List - Problems (1) Strangulated inguinal hernia Pulmonary evaluation - weaning today? GI Evaluation - Tbili 3.5, 3.6 BP goal MAP 65-70, has a stapled small bowel anastomosis avoid lwo flow states will follow Code(s): K40.30 - UNIL INGUINAL HERNIA, W OBST, W/O GANGR, NOT SPCF RECUR (2) Incarcerated left inguinal hernia Code(s): K40.30 - UNIL INGUINAL HERNIA, W OBST, W/O GANGR, NOT SPCF RECUR (3) BPH (benign prostatic hyperplasia) Code(s): N40.0 - BENIGN PROSTATIC HYPERPLASIA WITHOUT LOWER URINRY TRACT SYMP Qualifiers: Lower urinary tract symptom presence: symptoms present Lower urinary tract symptom detail: urinary frequency Qualified Code(s): N40.1 - Benign prostatic hyperplasia with lower urinary tract symptoms; R35.0 - Frequency of micturition ; R35.0 - Frequency of micturition (4) DDD (degenerative disc disease), cervical Code(s): M50.30 - OTHER CERVICAL DISC DEGENERATION, UNSP CERVICAL REGION (5) SBO (small bowel obstruction) Code(s): K56.609 - UNSP INTESTNL OBST, UNSP TO PARTIAL VERSUS COMPLETE OBST (6) Aspiration pneumonia of both lower lobes due to gastric secretions Code(s): J69.0 - PNEUMONITIS DUE TO INHALATION OF FOOD AND VOMIT r/o acalculus choley plan stable off of abx close watch chest pt rest as per icu xray labs noted patient improving nutrition peg tube feeding cc 40 min
--- NOTE | 2018-04-08 17:11 | PN ---
Progress Note, Physician Chief Complaint: SBO History of Present Illness: 82 yo male PMH BPH, degernerative disc disease (cervical), diverticulosis, hemorrhoids presented to the ED with abdominal pain and vomiting for on day. He reports that he was weight training yesterday and developed some groin pain. 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 gradually more responsive, intermittent clinical improvement. - Current Medication List Current Medications: Active Medications Acetaminophen (Tylenol Oral Solution -) 650 mg PO Q6H PRN PRN Reason: FEVER Last Admin: 04/05/18 06:35 Dose: 650 mg Acetaminophen (Ofirmev Injection -) 1,000 mg IVPB Q6H PRN PRN Reason: PAIN Last Admin: 04/06/18 14:51 Dose: 1,000 mg Amino Acids (Prosource No Carb Liquid Pkt) 30 ml PO BID [facility] Last Admin: 04/08/18 09:08 Dose: 30 ml Apixaban (Eliquis -) 5 mg PO BID [facility] Last Admin: 04/08/18 11:49 Dose: Not Given Artificial Tears (Artificial Tears) 1 drop OU BID PRN PRN Reason: DRY EYES Last Admin: 03/30/18 10:34 Dose: 1 drop Insulin Aspart (Novolog Vial Sliding Scale -) 1 vial SQ [facility]; Protocol Last Admin: 04/08/18 17:06 Dose: 2 units Melatonin (Melatonin) 5 mg NR HS PRN PRN Reason: INSOMNIA Last Admin: 04/07/18 22:25 Dose: 5 mg Ondansetron HCl (Zofran Injection) 4 mg IVPUSH Q6H PRN PRN Reason: NAUSEA Ranitidine HCl (Zantac Oral Solution -) 150 mg NGT DAILY [facility] Last Admin: 04/08/18 09:09 Dose: 150 mg Saliva Substitute (Mouthkote Solution -) 1 applic MM DAILY [facility] Last Admin: 04/08/18 09:11 Dose: 1 applic - Objective Vital Signs: Vital Signs Temperature 98.6 F 04/08/18 10:21 Pulse Rate 95 H 04/08/18 14:00 Respiratory Rate 28 H 04/08/18 14:00 Blood Pressure 104/68 04/08/18 14:00 O2 Sat by Pulse Oximetry (%) 98 04/08/18 10:00 Vital Signs Period Temp Pulse Resp BP Sys/Ceballos Pulse Ox Last 24 Hr 98.5 F-100 F 84-112 18-29 97-130/51-80 98-98 Intake & Output 04/08/18 04/08/18 04/08/18 07:59 15:59 23:59 Intake Total 240 Output Total 100 Balance 140 Weight 141 lb 3.2 oz Intake: Tube Feeding 120 Tube Irrigant 120 Output: Drainage 100 Right Upper Abdomen 100 Other: Voiding Method Diaper # Unmeasured Voids Void 3 Bowel Movement No: large brown Weight Measurement Method Built in [facility] Constitutional: Yes: Well Nourished, No Distress, Calm Eyes: Yes: Conjunctiva Clear, EOM Intact HENT: Yes: Atraumatic, Normocephalic Neck: Yes: Supple, Trachea Midline Cardiovascular: Yes: Regular Rate and Rhythm, S1, S2 Respiratory: Yes: Regular, CTA Bilaterally, On Nasal O2 Gastrointestinal: Yes: Normal Bowel Sounds, Soft ...Rectal Exam: Yes: Deferred Genitourinary: No: CVA Tenderness - Left, CVA Tenderness - Right Extremities: No: Cool, Cyanosis Edema: No Peripheral Pulses WNL: Yes Peripheral Pulses: Left Doralis Pedis: 2+, Right Dorsalis Pedis: 2+ Neurological: Yes: Alert, Oriented Psychiatric: Yes: Alert, Oriented Labs: CBC, BMP 04/08/18 05:55 04/08/18 05:55 INR, PTT INR 1.29 (0.82-1.09) H 04/06/18 05:20 Problem List - Problems (1) Strangulated inguinal hernia Assessment/Plan: 82yo male MMP relatively healthy with SBO abdominal pain non reducible LIH, unclear transition point and no clear bowel ischemia identified. Bibasilar pulmonary consolidation and hoarsness may be a sequela of an aspiration. POD#23 s/p Exploratory Laparotomy, segmental ressection of SB and primary stapled anastomosis for strangulated RIH. low grade fevers persists. Patient has soft bowel movements. Extubated on high flow NC. S/p percutaneous cholecystostomy and gastrostomy. ICU management Antibiotics per ID Feed to goal HEIDE Cholecystostomy management per IR Physical Therapy followup GI and DVT prophylaxsis D/C planning to assisted acute care facility to be determined will follow peripherally This patient is critically ill. Time spent reviewing chart, examining patient, talking with providers and/or family and documentation is 35 minutes Code(s): K40.30 - UNIL INGUINAL HERNIA, W OBST, W/O GANGR, NOT SPCF RECUR (2) Incarcerated left inguinal hernia Code(s): K40.30 - UNIL INGUINAL HERNIA, W OBST, W/O GANGR, NOT SPCF RECUR (3) BPH (benign prostatic hyperplasia) Code(s): N40.0 - BENIGN PROSTATIC HYPERPLASIA WITHOUT LOWER URINRY TRACT SYMP Qualifiers: Lower urinary tract symptom presence: symptoms present Lower urinary tract symptom detail: urinary frequency Qualified Code(s): N40.1 - Benign prostatic hyperplasia with lower urinary tract symptoms; R35.0 - Frequency of micturition ; R35.0 - Frequency of micturition (4) DDD (degenerative disc disease), cervical Code(s): M50.30 - OTHER CERVICAL DISC DEGENERATION, UNSP CERVICAL REGION (5) SBO (small bowel obstruction) Code(s): K56.609 - UNSP INTESTNL OBST, UNSP TO PARTIAL VERSUS COMPLETE OBST (6) Aspiration pneumonia of both lower lobes due to gastric secretions Code(s): J69.0 - PNEUMONITIS DUE TO INHALATION OF FOOD AND VOMIT
[2018-04-09 08:56] LABS: ALBUMIN 1.7 g/dl (3.4-5.0); ALK PHOS 230 U/L (45-117); ANION GAP 9 (8-16); BILIRUBIN,TOTAL 0.8 mg/dL (0.2-1.0); BLOOD UREA NITROGEN 33 mg/dL (7-18); CALCIUM 8.9 mg/dL (8.5-10.1); CHLORIDE 108 mmol/L (98-107); CO2 26 mmol/L (21-32); CREATININE 0.5 mg/dL (0.7-1.3); GLUCOSE,RANDOM 160 mg/dL (74-106); MAGNESIUM 2.2 mg/dL (1.8-2.4); PHOSPHOROUS 3.1 mg/dL (2.5-4.9); SGOT/AST 47 U/L (15-37); SGPT/ALT 66 U/L (12-78); SODIUM 143 mmol/L (136-145); TOT PROT 6.2 g/dl (6.4-8.2)
[2018-04-09 09:02] LABS: HEMATOCRIT 34.9 % (35.4-49); HEMOGLOBIN 11.6 GM/dL (11.7-16.9); MCH 29.8 pg (25.7-33.7); MCHC 33.2 g/dl (32.0-35.9); MEAN CELL VOLUME 89.9 fl (80-96); MEAN PLT VOLUME 8.3 fl (7.5-11.1); PLATELET COUNT 508 K/MM3 (134-434); RBC 3.88 M/mm3 (4.00-5.60); RDW 14.8 % (11.9-15.9)
[2018-04-09] MEDS ORDERED: PT OWN MED DRAWER 7, Y5N ONE ×2 (10:22→21:46)
--- NOTE | 2018-04-09 10:38 | PN ---
Physical Exam: SUBJECTIVE: Patient seen and examined. Talking, offers no complaints. Off HFNC. on 2L NC sat 100% OBJECTIVE: Vital Signs Period Temp Pulse Resp BP Sys/Ceballos Pulse Ox Last 24 Hr 98.3 F-98.8 F 93-107 18-30 102-127/58-70 98-99 GENERAL: The patient is awake, alert. Talking, hoarse voice, follows commands. EYES: PERRL, sclera anicteric, conjunctiva clear. No ptosis. ENT: moist mucous membranes LUNGS: decreased breath sounds at the bases HEART: Regular rate and rhythm, S1, S2 without murmur, rub or gallop. ABDOMEN: Peg tube in place. Soft, nontender, nondistended, (+) bowel sounds. RUQ LEIF draining MSK: moving upper and lower extremities, strength improved. EXTREMITIES: no LE edema Laboratory Results - last 24 hr 04/07/18 04/08/18 04/08/18 21:01 06:07 11:37 WBC RBC Hgb Hct MCV MCH MCHC RDW Plt Count MPV Sodium Potassium Chloride Carbon Dioxide Anion Gap BUN Creatinine Creat Clearance w eGFR POC Glucometer 164.95539 162.47038 195.22506 Random Glucose Calcium Phosphorus Magnesium Total Bilirubin AST ALT Alkaline Phosphatase Total Protein Albumin 04/08/18 04/09/18 04/09/18 21:27 05:53 06:00 WBC 8.0 RBC 3.88 L Hgb 11.6 L Hct 34.9 L MCV 89.9 MCH 29.8 MCHC 33.2 RDW 14.8 Plt Count 508 H MPV 8.3 Sodium 143 Potassium 4.0 Chloride 108 H Carbon Dioxide 26 Anion Gap 9 BUN 33 H Creatinine 0.5 L Creat Clearance w eGFR > 60 POC Glucometer [phone] Random Glucose 160 H Calcium 8.9 Phosphorus 3.1 Magnesium 2.2 Total Bilirubin 0.8 D AST 47 H D ALT 66 D Alkaline Phosphatase 230 H Total Protein 6.2 L Albumin 1.7 L Active Medications Generic Name Dose Route Start Last Admin Trade Name Freq PRN Reason Stop Dose Admin Acetaminophen 650 mg 03/27/18 13:00 04/05/18 06:35 Tylenol Oral Solution - PO 650 mg Q6H PRN Administration FEVER Acetaminophen 1,000 mg 04/06/18 14:51 04/06/18 14:51 Ofirmev Injection - IVPB 1,000 mg Q6H PRN Administration PAIN Amino Acids 30 ml 04/07/18 22:00 04/08/18 21:17 Prosource No Carb Liquid Pkt PO 30 ml BID [facility] Administration Apixaban 5 mg 04/08/18 11:15 04/08/18 21:17 Eliquis - PO 5 mg BID [facility] Administration Artificial Tears 1 drop 03/24/18 10:59 03/30/18 10:34 Artificial Tears OU 1 drop BID PRN Administration DRY EYES Insulin Aspart 1 vial 03/23/18 11:00 04/08/18 22:20 Novolog Vial Sliding Scale - SQ 2 units ACHS JUDY Administration Protocol Melatonin 5 mg 04/07/18 22:00 04/07/18 22:25 Melatonin NR 5 mg HS PRN Administration INSOMNIA Ondansetron HCl 4 mg 03/13/18 04:30 Zofran Injection IVPUSH Q6H PRN NAUSEA Ranitidine HCl 150 mg 04/03/18 11:45 04/08/18 09:09 Zantac Oral Solution - NGT 150 mg DAILY [facility] Administration Saliva Substitute 1 applic 04/07/18 22:13 04/08/18 09:11 Mouthkote Solution - MM 1 applic DAILY [facility] Administration ASSESSMENT/PLAN: Patient is an 82 year old male who presented with abdominal pain and was found to have SBO with bowel ischemia from incarcerated hernia and developed acute respiratory failure from septic shock. Patient admitted for further monitoring and management. Pulm: #Acute Hypoxic Respiratory Failure -Likely secondary to Septic shock from Bowel ischemia and Aspiration PNA -Patient s/p extubation (03/28) -Off HFNC -Now on 2L NC. O2 Sats 100% -Maintain SpO2 >90% -Incentive spirometry ID: #Septic Shock secondary to SBO and bowel Ischemia -resolved -Afebrile -Patient remains off pressors -Completed IV Abx: Meropenem GI: #Ischemic bowel and incarcerated inguinal Hernia -s/p ex lap and partial bowel resection (03/13) -C-TUBE in place and continues to drain bile -S/p Peg tube placement 04/06 -follow speech/ swallow reccs -Cont. tube feeds Cardio: #New onset Atrial Flutter/Atrial Fibrillation -Currently rate controlled and in normal sinus rhythm -Cont. Eliquis, 5mg BID Vascular: #Right IJ thrombus -Eliquis Neuro: #Critical Illness Neuropathy -Continue physical therapy F/E/N -no fluids -monitor lytes -tube feeds Prophylaxis -Eliqius -Zantac 150 daily Dispo -Full code -Will reach out to [facility] for possible placement. Visit type - Emergency Visit Emergency Visit: Yes ED Registration Date: 03/12/18 Care time: The patient presented to the Emergency Department on the above date and was hospitalized for further evaluation of their emergent condition. - New Patient This patient is new to me today: No - Critical Care Critical Care patient: Yes Total Critical Care Time (in minutes): 40 Critical Care Statement: The care of this patient involved high complexity decision making to prevent further life threatening deterioration of the patient 's condition and/or to evaluate & treat vital organ system(s) failure or risk of failure.
[2018-04-09] MEDS: AMINO ACIDS/PROTEIN HYDROLYS 30 ML LIQUID.PKT PO SCH ×2 (10:47→22:01)
[2018-04-09] MEDS: RANITIDINE HCL 150 MG/10 ML UNIT-DOSE NGT SCH (10:47)
[2018-04-09] MEDS: APIXABAN 5 MG TABLET PO SCH ×2 (10:47→22:01)
[2018-04-09] MEDS: LYTES/YERBA SANTA 240 ML BOTTLE MM SCH (10:48)
--- NOTE | 2018-04-09 10:52 | PN ---
Teaching Attending Note Name of Resident: Luke Drake ATTENDING PHYSICIAN STATEMENT I saw and evaluated the patient. I reviewed the resident's note and discussed the case with the resident. I agree with the resident's findings and plan as documented. SUBJECTIVE: Pt seen and examined in the ICU. Voice stronger, motor strength improving. Was in chair this AM. OBJECTIVE: Vital Signs Period Temp Pulse Resp BP Sys/Ceballos Pulse Ox Last 24 Hr 98.3 F-98.8 F 93-107 18-30 102-127/58-70 98-99 Intake & Output 04/06/18 04/07/18 04/08/18 04/09/18 23:59 23:59 23:59 23:59 Intake Total 980 520 920 Output Total 2225 920 210 Balance -1245 -400 710 Weight 63.095 kg 63.095 kg 64.047 kg Gen: awake, alert Heart: RRR Lung: decreased breath sounds at the bases Abd: soft, nontender Ext: no edema CBC, BMP 04/09/18 05:53 04/09/18 06:00 Active Medications Acetaminophen (Tylenol Oral Solution -) 650 mg PO Q6H PRN PRN Reason: FEVER Last Admin: 04/05/18 06:35 Dose: 650 mg Acetaminophen (Ofirmev Injection -) 1,000 mg IVPB Q6H PRN PRN Reason: PAIN Last Admin: 04/06/18 14:51 Dose: 1,000 mg Amino Acids (Prosource No Carb Liquid Pkt) 30 ml PO BID [facility] Last Admin: 04/08/18 21:17 Dose: 30 ml Apixaban (Eliquis -) 5 mg PO BID [facility] Last Admin: 04/08/18 21:17 Dose: 5 mg Artificial Tears (Artificial Tears) 1 drop OU BID PRN PRN Reason: DRY EYES Last Admin: 03/30/18 10:34 Dose: 1 drop Insulin Aspart (Novolog Vial Sliding Scale -) 1 vial SQ ACHS [facility]; Protocol Last Admin: 04/08/18 22:20 Dose: 2 units Melatonin (Melatonin) 5 mg NR HS PRN PRN Reason: INSOMNIA Last Admin: 04/07/18 22:25 Dose: 5 mg Ondansetron HCl (Zofran Injection) 4 mg IVPUSH Q6H PRN PRN Reason: NAUSEA Ranitidine HCl (Zantac Oral Solution -) 150 mg NGT DAILY [facility] Last Admin: 04/08/18 09:09 Dose: 150 mg Saliva Substitute (Mouthkote Solution -) 1 applic MM DAILY [facility] Last Admin: 04/08/18 09:11 Dose: 1 applic ASSESSMENT AND PLAN: Acute Hypoxic Respiratory Failure improving Pneumonia treated ARDS resolving Incarcerated Inguinal Hernia s/p ex-lap/segmental terminal ileum resection/primary anastamosis 03/13 r/o Acalculus Cholecystitis s/p percutaneous cholecystostomy Septic Shock resolved Acute Kidney Injury improved Lactic Acidosis resolved New onset Paroxysmal Atrial Fibrillation Diverticulosis BPH Critical Illness Polyneuropathy - rate controlled - continue anticoagulation - monitor urine output, creatinine - O2 to keep SpO2 >90% - enteral feeds - rehab/PT - DVT/GI prophylaxis - would be excellent candidate for acute rehab
--- NOTE | 2018-04-09 11:01 | PN ---
Progress Note (short form) - Note Progress Note: Chief Complaint: septic shock History of Present Illness: awake, but minimally interactive. not communicating well. no overnight events. Current Medications Generic Name Dose Route Start Last Admin Trade Name Tushar PRN Reason Stop Dose Admin Acetaminophen 650 mg 03/27/18 13:00 04/05/18 06:35 Tylenol Oral Solution - PO 650 mg Q6H PRN Administration FEVER Acetaminophen 1,000 mg 04/06/18 14:51 04/06/18 14:51 Ofirmev Injection - IVPB 1,000 mg Q6H PRN Administration PAIN Amino Acids 30 ml 04/07/18 22:00 04/09/18 10:47 Prosource No Carb Liquid Pkt PO 30 ml BID JUDY Administration Apixaban 5 mg 04/08/18 11:15 04/09/18 10:47 Eliquis - PO 5 mg BID JUDY Administration Artificial Tears 1 drop 03/24/18 10:59 03/30/18 10:34 Artificial Tears OU 1 drop BID PRN Administration DRY EYES Insulin Aspart 1 vial 03/23/18 11:00 04/08/18 22:20 Novolog Vial Sliding Scale - SQ 2 units ACHS JUDY Administration Protocol Melatonin 5 mg 04/07/18 22:00 04/07/18 22:25 Melatonin NR 5 mg HS PRN Administration INSOMNIA Ondansetron HCl 4 mg 03/13/18 04:30 Zofran Injection IVPUSH Q6H PRN NAUSEA Ranitidine HCl 150 mg 04/03/18 11:45 04/09/18 10:47 Zantac Oral Solution - NGT 150 mg DAILY JUDY Administration Saliva Substitute 1 applic 04/07/18 22:13 04/09/18 10:48 Mouthkote Solution - MM 1 applic DAILY JUDY Administration Vital Signs Period Temp Pulse Resp BP Sys/Ceballos Pulse Ox Last 24 Hr 98.3 F-98.8 F 93-107 18-30 102-127/58-70 98-99 nad no jvd trace bibasilar rales, poor eff rrr nl s1s2 no mrg + bs soft nt nd trace dependent edema bl, no c/c no jaundice diaphoresis lethargic Labs: CBC, BMP 04/09/18 05:53 04/09/18 06:00 tele: sr ecg: sr, nl intervals, no ischemic changes head ct: no acute pathology echo 02/2018: nl lv/rv, mild mr/tr/ar RUE u/s: nonocclusive thrombus in Rt int jugular vein. a/p: 82 m hx gerd, bph, here with abd pain/sepsis - found to have sbo, now s/p OR hospital course c/b new afib. septic shock/sbo/cholecystitis/asp pna: -s/p ex-lap/segmental terminal ileum resection/primary anastamosis 03/13 -Suspected Acalculus Cholecystitis s/p percutaneous cholecystostomy 03/20 -asp pna -now extubated, off pressors. bp stable. abx per ID. -Peg -receiving IV lasix prn per CXR appearing congested. new pafib --> conversion to sr: -new onset here. rate controlled w/o meds. 03/25 converted to sr-->remains in sinus -echo unremarkable -chadsvasc warrants ac. continue eliquis. RUE DVT - AC as above.
--- NOTE | 2018-04-09 11:37 | PN ---
Progress Note, Physician Chief Complaint: SBO History of Present Illness: 82 yo male PMH BPH, degernerative disc disease (cervical), diverticulosis, hemorrhoids presented to the ED with abdominal pain and vomiting for on day. He reports that he was weight training yesterday and developed some groin pain. 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 gradually more responsive, intermittent clinical improvement. - Current Medication List Current Medications: Active Medications Acetaminophen (Tylenol Oral Solution -) 650 mg PO Q6H PRN PRN Reason: FEVER Last Admin: 04/05/18 06:35 Dose: 650 mg Acetaminophen (Ofirmev Injection -) 1,000 mg IVPB Q6H PRN PRN Reason: PAIN Last Admin: 04/06/18 14:51 Dose: 1,000 mg Amino Acids (Prosource No Carb Liquid Pkt) 30 ml PO BID JUDY Last Admin: 04/09/18 10:47 Dose: 30 ml Apixaban (Eliquis -) 5 mg PO BID [facility] Last Admin: 04/09/18 10:47 Dose: 5 mg Artificial Tears (Artificial Tears) 1 drop OU BID PRN PRN Reason: DRY EYES Last Admin: 03/30/18 10:34 Dose: 1 drop Insulin Aspart (Novolog Vial Sliding Scale -) 1 vial SQ [facility]; Protocol Last Admin: 04/08/18 22:20 Dose: 2 units Melatonin (Melatonin) 5 mg NR HS PRN PRN Reason: INSOMNIA Last Admin: 04/07/18 22:25 Dose: 5 mg Ondansetron HCl (Zofran Injection) 4 mg IVPUSH Q6H PRN PRN Reason: NAUSEA Ranitidine HCl (Zantac Oral Solution -) 150 mg NGT DAILY [facility] Last Admin: 04/09/18 10:47 Dose: 150 mg Saliva Substitute (Mouthkote Solution -) 1 applic MM DAILY [facility] Last Admin: 04/09/18 10:48 Dose: 1 applic - Objective Vital Signs: Vital Signs Temperature 98.5 F 04/09/18 00:00 Pulse Rate 93 H 04/09/18 00:00 Respiratory Rate 18 04/09/18 00:00 Blood Pressure 111/62 04/09/18 00:00 O2 Sat by Pulse Oximetry (%) 99 04/09/18 08:00 Vital Signs Period Temp Pulse Resp BP Sys/Ceballos Pulse Ox Last 24 Hr 98.3 F-98.8 F 93-107 18-30 102-127/58-70 98-99 Intake & Output 04/08/18 04/09/18 04/09/18 23:59 07:59 15:59 Intake Total 680 Output Total 110 Balance 570 Intake: Tube Feeding 460 Tube Irrigant 220 Output: Drainage 110 Right Upper Abdomen 110 Other: Voiding Method Diaper Diaper # Unmeasured Voids Void 2 Bowel Movement No Constitutional: Yes: No Distress, Calm, Thin Eyes: Yes: Conjunctiva Clear, EOM Intact HENT: Yes: Atraumatic, Normocephalic Neck: Yes: Supple, Trachea Midline Cardiovascular: Yes: Regular Rate and Rhythm, S1, S2 Respiratory: Yes: Regular, CTA Bilaterally, On Nasal O2 Gastrointestinal: Yes: Normal Bowel Sounds, Soft. No: Tenderness Genitourinary: No: CVA Tenderness - Left, CVA Tenderness - Right Musculoskeletal: Yes: Muscle Weakness Extremities: No: Cool, Cyanosis Edema: No Peripheral Pulses WNL: Yes Peripheral Pulses: Left Doralis Pedis: 2+, Right Dorsalis Pedis: 2+ Wound/Incision: Yes: Clean/Dry, Well Approximated, Open to air Neurological: Yes: Alert, Oriented Psychiatric: Yes: Alert, Oriented Labs: CBC, BMP 04/09/18 05:53 04/09/18 06:00 INR, PTT INR 1.29 (0.82-1.09) H 04/06/18 05:20 Problem List - Problems (1) Strangulated inguinal hernia Assessment/Plan: 82yo male MMP relatively healthy with SBO abdominal pain non reducible LIH, unclear transition point and no clear bowel ischemia identified. Bibasilar pulmonary consolidation and hoarsness may be a sequela of an aspiration. POD#25 s/p Exploratory Laparotomy, segmental ressection of SB and primary stapled anastomosis for strangulated RIH. low grade fevers persists. Patient has soft bowel movements. Extubated on high flow NC. S/p percutaneous cholecystostomy and gastrostomy. ICU management Antibiotics per ID Feed to goal HEIDE Cholecystostomy management per IR Physical Therapy followup GI and DVT prophylaxsis D/C planning to superintendent container terminal acute care facility to be determined will follow peripherally This patient is critically ill. Time spent reviewing chart, examining patient, talking with providers and/or family and documentation is 35 minutes Code(s): K40.30 - UNIL INGUINAL HERNIA, W OBST, W/O GANGR, NOT SPCF RECUR (2) Incarcerated left inguinal hernia Code(s): K40.30 - UNIL INGUINAL HERNIA, W OBST, W/O GANGR, NOT SPCF RECUR (3) BPH (benign prostatic hyperplasia) Code(s): N40.0 - BENIGN PROSTATIC HYPERPLASIA WITHOUT LOWER URINRY TRACT SYMP Qualifiers: Lower urinary tract symptom presence: symptoms present Lower urinary tract symptom detail: urinary frequency Qualified Code(s): N40.1 - Benign prostatic hyperplasia with lower urinary tract symptoms; R35.0 - Frequency of micturition ; R35.0 - Frequency of micturition (4) DDD (degenerative disc disease), cervical Code(s): M50.30 - OTHER CERVICAL DISC DEGENERATION, UNSP CERVICAL REGION (5) SBO (small bowel obstruction) Code(s): K56.609 - UNSP INTESTNL OBST, UNSP TO PARTIAL VERSUS COMPLETE OBST (6) Aspiration pneumonia of both lower lobes due to gastric secretions Code(s): J69.0 - PNEUMONITIS DUE TO INHALATION OF FOOD AND VOMIT
--- NOTE | 2018-04-09 11:50 | PN ---
Teaching Attending Note Name of Resident: Mukul White ATTENDING PHYSICIAN STATEMENT I saw and evaluated the patient. I reviewed the resident's note and discussed the case with the resident. I agree with the resident's findings and plan as documented. SUBJECTIVE: No fever or chills . Nopain or SOB. sat in a chair yesterday . OBJECTIVE: Awake , follows commands .stronger voice , moves all extremities. CV: RRR. Lungs; decreased breath sounds at bases Abd: + BS. Mid line surgical wound. RUQ LEIF drain with brown fluid. Ext: no edema on LE ASSESSMENT AND PLAN: Unfortunate 82 y/o gentleman with h/o DJD, GERD, diverticulosis and other medical problems who presented with abd pain and was found to have SBO with bowel ischemia , and incarcerated hernia and developed acute resp failure and septic shock. 1- Acute hypoxic resp failure. due to severe sepsis and b/l PNA /ARDS. improved . - on NC now 2- Septic shock. resolved - off Abx 3- Ischemic bowel and incarcerated inguinal hernia : s/p exploratory laparotomy and partial small bowel resection. 4- Possible acalculus cholecystitis : s/p cholecystostomy tube -cont with cholycystostomy tube 5-New onset A flutter/A fib: now in sinus rhythm. - cont eliquis at 5 BID . will not decrease dose - rate controlled 6- R IJ thrombus /DVT: - Eliquis with no dose decrease. 7- S/P PEG: cont TF 8- ICU neuropathy. improving . dispo since patient is no longer critically ill, then might benefit from rehab placement. Will d/w Social work .
--- NOTE | 2018-04-09 12:59 | PN ---
Progress Note, Physician History of Present Illness: patient doing much better now on nasal canula - Current Medication List Current Medications: Active Medications Acetaminophen (Tylenol Oral Solution -) 650 mg PO Q6H PRN PRN Reason: FEVER Last Admin: 04/05/18 06:35 Dose: 650 mg Acetaminophen (Ofirmev Injection -) 1,000 mg IVPB Q6H PRN PRN Reason: PAIN Last Admin: 04/06/18 14:51 Dose: 1,000 mg Amino Acids (Prosource No Carb Liquid Pkt) 30 ml PO BID JUDY Last Admin: 04/09/18 10:47 Dose: 30 ml Apixaban (Eliquis -) 5 mg PO BID [facility] Last Admin: 04/09/18 10:47 Dose: 5 mg Artificial Tears (Artificial Tears) 1 drop OU BID PRN PRN Reason: DRY EYES Last Admin: 03/30/18 10:34 Dose: 1 drop Insulin Aspart (Novolog Vial Sliding Scale -) 1 vial SQ ACHS [facility]; Protocol Last Admin: 04/08/18 22:20 Dose: 2 units Melatonin (Melatonin) 5 mg NR HS PRN PRN Reason: INSOMNIA Last Admin: 04/07/18 22:25 Dose: 5 mg Ondansetron HCl (Zofran Injection) 4 mg IVPUSH Q6H PRN PRN Reason: NAUSEA Ranitidine HCl (Zantac Oral Solution -) 150 mg NGT DAILY [facility] Last Admin: 04/09/18 10:47 Dose: 150 mg Saliva Substitute (Mouthkote Solution -) 1 applic MM DAILY [facility] Last Admin: 04/09/18 10:48 Dose: 1 applic - Objective Vital Signs: Vital Signs Temperature 98.5 F 04/09/18 00:00 Pulse Rate 93 H 04/09/18 00:00 Respiratory Rate 18 04/09/18 00:00 Blood Pressure 111/62 04/09/18 00:00 O2 Sat by Pulse Oximetry (%) 99 04/09/18 08:00 Constitutional: Yes: No Distress, Calm Cardiovascular: Yes: Regular Rate and Rhythm Respiratory: Yes: Regular, On Nasal O2, Other Gastrointestinal: Yes: Normal Bowel Sounds, Soft, Other (peg in place) Musculoskeletal: Yes: WNL Extremities: Yes: WNL Neurological: Yes: Alert, Oriented Psychiatric: Yes: Alert, Oriented Labs: CBC, BMP 04/09/18 05:53 04/09/18 06:00 INR, PTT INR 1.29 (0.82-1.09) H 04/06/18 05:20 Assessment/Plan Problem List - Problems (1) Strangulated inguinal hernia Pulmonary evaluation - weaning today? GI Evaluation - Tbili 3.5, 3.6 BP goal MAP 65-70, has a stapled small bowel anastomosis avoid lwo flow states will follow Code(s): K40.30 - UNIL INGUINAL HERNIA, W OBST, W/O GANGR, NOT SPCF RECUR (2) Incarcerated left inguinal hernia Code(s): K40.30 - UNIL INGUINAL HERNIA, W OBST, W/O GANGR, NOT SPCF RECUR (3) BPH (benign prostatic hyperplasia) Code(s): N40.0 - BENIGN PROSTATIC HYPERPLASIA WITHOUT LOWER URINRY TRACT SYMP Qualifiers: Lower urinary tract symptom presence: symptoms present Lower urinary tract symptom detail: urinary frequency Qualified Code(s): N40.1 - Benign prostatic hyperplasia with lower urinary tract symptoms; R35.0 - Frequency of micturition ; R35.0 - Frequency of micturition (4) DDD (degenerative disc disease), cervical Code(s): M50.30 - OTHER CERVICAL DISC DEGENERATION, UNSP CERVICAL REGION (5) SBO (small bowel obstruction) Code(s): K56.609 - UNSP INTESTNL OBST, UNSP TO PARTIAL VERSUS COMPLETE OBST (6) Aspiration pneumonia of both lower lobes due to gastric secretions Code(s): J69.0 - PNEUMONITIS DUE TO INHALATION OF FOOD AND VOMIT r/o acalculus choley plan stable off of abx on nasal canula now close watch chest pt rest as per icu xray labs noted patient improving nutrition peg tube feeding cc 40 min
--- NOTE | 2018-04-09 13:46 | PN ---
Physical Exam: SUBJECTIVE: Today pt is OOB to chair! He is able to speak and has no complaints at this time. No acute events overnight. OBJECTIVE: Vital Signs Period Temp Pulse Resp BP Sys/Ceballos Pulse Ox Last 24 Hr 98.3 F-98.8 F 93-107 18-30 102-127/58-68 98-99 GENERAL: NAD, alert today, oob2 chair HEENT: KITTY, EOMI, L nare NG intact, MMM Neck: no JVD LUNGS: Aeration of lungs down to the bases. no overt rhonchi or rales . On 3LNC HEART: RRR, S1, S2 without murmur ABDOMEN: Soft, nondistended, nontender, C-tube draining brown fluid NEURO: Strength 5/5 in lower extremities, pt can now move arms 3/5. Phonation noted in voice EXTREMITIES: 2+ DP pulses, warm, no edema today SKIN: Warm, dry, no rash or lesions currently Laboratory Results - last 24 hr 04/08/18 04/09/18 04/09/18 21:27 05:52 05:53 WBC 8.0 RBC 3.88 L Hgb 11.6 L Hct 34.9 L MCV 89.9 MCH 29.8 MCHC 33.2 RDW 14.8 Plt Count 508 H MPV 8.3 Sodium Potassium Chloride Carbon Dioxide Anion Gap BUN Creatinine Creat Clearance w eGFR POC Glucometer 170.62422 180.06877 Random Glucose Calcium Phosphorus Magnesium Total Bilirubin AST ALT Alkaline Phosphatase Total Protein Albumin 04/09/18 04/09/18 06:00 12:43 WBC RBC Hgb Hct MCV MCH MCHC RDW Plt Count MPV Sodium 143 Potassium 4.0 Chloride 108 H Carbon Dioxide 26 Anion Gap 9 BUN 33 H Creatinine 0.5 L Creat Clearance w eGFR > 60 POC Glucometer [phone] Random Glucose 160 H Calcium 8.9 Phosphorus 3.1 Magnesium 2.2 Total Bilirubin 0.8 D AST 47 H D ALT 66 D Alkaline Phosphatase 230 H Total Protein 6.2 L Albumin 1.7 L Active Medications Generic Name Dose Route Start Last Admin Trade Name Freq PRN Reason Stop Dose Admin Acetaminophen 650 mg 03/27/18 13:00 04/05/18 06:35 Tylenol Oral Solution - PO 650 mg Q6H PRN Administration FEVER Acetaminophen 1,000 mg 04/06/18 14:51 04/06/18 14:51 Ofirmev Injection - IVPB 1,000 mg Q6H PRN Administration PAIN Amino Acids 30 ml 04/07/18 22:00 04/09/18 10:47 Prosource No Carb Liquid Pkt PO 30 ml BID JUDY Administration Apixaban 5 mg 04/08/18 11:15 04/09/18 10:47 Eliquis - PO 5 mg BID JUDY Administration Artificial Tears 1 drop 03/24/18 10:59 03/30/18 10:34 Artificial Tears OU 1 drop BID PRN Administration DRY EYES Insulin Aspart 1 vial 03/23/18 11:00 04/08/18 22:20 Novolog Vial Sliding Scale - SQ 2 units ACHS JUDY Administration Protocol Melatonin 5 mg 04/07/18 22:00 04/07/18 22:25 Melatonin NR 5 mg HS PRN Administration INSOMNIA Ondansetron HCl 4 mg 03/13/18 04:30 Zofran Injection IVPUSH Q6H PRN NAUSEA Ranitidine HCl 150 mg 04/03/18 11:45 04/09/18 10:47 Zantac Oral Solution - NGT 150 mg DAILY JUDY Administration Saliva Substitute 1 applic 04/07/18 22:13 04/09/18 10:48 Mouthkote Solution - MM 1 applic DAILY JUDY Administration ASSESSMENT/PLAN: 1) Acute hypoxic respiratory failure --Resolving, extubated; 03/28 --Continue 3LNC --Aspiration precautions: HOB elevated 2) Toxic metabolic neuropathy --Continue PT --When pt reinitiates feed through G-tube can start on NOAC orally for AC rather than heparin gtt to minimize fluid intake --IR PEG placed --> Perative per dietary recommendation 3) Septic shock 2/2 to bowel ischemia in addition to aspiration PNA --ID on board --Monitor off ABX 4) Elevated LFTs --Stable --Discussed with IR and will need to keep C-tube for long duration before pulling 5) Atrial flutter/fib --Cardiology consulted --Eliquis 5mg GT BID --Echo unremarkable FEN: Fluids: Avoid E: No abnormalities Nutrition: Perative and Prosource BID PPX: DVT - Eliquis as above GI - Protonix 40mg IVP daily Dispo: Discussed with case management about possibility of Walker or intensive rehab facility as pt is off of high flow now; TERRY's were sent prior Case discussed with Dr. Mati White, DO - IM PGY-1 Visit type - Emergency Visit Emergency Visit: No - New Patient This patient is new to me today: No - Critical Care Critical Care patient: No
[2018-04-09] MEDS: INSULIN SLIDING SCALE (NOVOLOG) 1 VIAL SQ SCH ×3 (13:56→22:30)
--- NOTE | 2018-04-09 14:12 | PN ---
Progress Note, OUTPATIENT COORDINATOR - Note Progress Note: Now off HFNC, on NC. Alert, initiating speech more frequently with Dysphonic, more audible speech. Not aware he was in the hospital. Reviewed with family continued goals of improved phonation (Vocal quality,volume ), swallow, orientation, increasing conversation. MBS when pt is stronger to initiate PO trials. Possibly 04/13? Rehabilitation candidacy significantly improving.
[2018-04-09] MEDS: BANATROL PLUS POWDER PACKET PO SCH (22:01)
[2018-04-10] MEDS ORDERED: PT OWN MED DRAWER 7, Y5N ONE ×2 (00:58→11:50)
[2018-04-10 06:10] LABS: BASO % 0.6 % (0-2.0); EOS % 0.6 % (0-4.5); HEMATOCRIT 37.4 % (35.4-49); HEMOGLOBIN 12.4 GM/dL (11.7-16.9); LYMPH % 7.2 % (8-40); MCH 29.8 pg (25.7-33.7); MCHC 33.2 g/dl (32.0-35.9); MEAN PLT VOLUME 8.2 fl (7.5-11.1); MONO % 5.9 % (3.8-10.2); NEUT % 85.7 % (42.8-82.8); PLATELET COUNT 489 K/MM3 (134-434); RBC 4.15 M/mm3 (4.00-5.60); WHITE BLOOD COUNT 15.4 K/mm3 (4.0-10.0)
[2018-04-10] MEDS: INSULIN SLIDING SCALE (NOVOLOG) 1 VIAL SQ SCH ×5 (06:22→21:53)
[2018-04-10] MEDS: BANATROL PLUS POWDER PACKET PO SCH ×3 (06:24→21:44)
[2018-04-10 06:34] LABS: CHLORIDE 108 mmol/L (98-107); POTASSIUM 4.2 mmol/L (3.5-5.1); SODIUM 143 mmol/L (136-145)
[2018-04-10 06:40] LABS: ALK PHOS 259 U/L (45-117); ANION GAP 7 (8-16); BILIRUBIN,TOTAL 1.6 mg/dL (0.2-1.0); BLOOD UREA NITROGEN 33 mg/dL (7-18); CALCIUM 9.1 mg/dL (8.5-10.1); CO2 28 mmol/L (21-32); CREATININE 0.5 mg/dL (0.7-1.3); GLUCOSE,RANDOM 128 mg/dL (74-106); SGOT/AST 72 U/L (15-37); SGPT/ALT 93 U/L (12-78); TOT PROT 6.8 g/dl (6.4-8.2)
--- NOTE | 2018-04-10 06:49 | PN ---
Progress Note (short form) - Note Progress Note: S: -- Appropriately nodding to commands, trying to phonate. Trying to get OOB. CXR clearing -- Low grade temp and white count O: Vital Signs Period Temp Pulse Resp BP Sys/Ceballos Pulse Ox Last 24 Hr 97.8 F-99.0 F 102-119 19-34 115-134/64-85 97-99 Tele - Some mild desats GEN: Awake, alert, responding to commands HEENT: PERRL, no JVD CV: S1, S2, RRR LUNG: CTABL bilateral breath sounds ABD: Soft, NT, ND, normaoctive BS MSK: No edema, no erythema NEURO: +3 in UE bilaterally, +1 in LE bilaterally. A/P: 82yo relatively healthy M presented w/ SBO from an incarcerated R inguinal hernia after weight training # Acute Hypoxic RF from likely ARDS -- Initially from aspiration pneumonia, later developed ARDS. Now extubated. Improving. On NC. # Septic Shock from Incarcerated Inguinal Hernia and PNA -- Resolved. Partial resection and primary anastomosis on 03/13. Off abx. # ICU Polyneuropathy -- Improving. OOB to chair. S/p PEG tube. Continue aggressive PT # Transaminitis -- Now worsening. Though C-tube was placed, can still be some static flow. No abd pain. If worsening over next couple days can consider CT abd # Paroxysmal Afib -- New onset this hospitalization. Now sinus. Rate controlled. High CHADSVasc. Eliquis 5 bid. # DVT in R IJ -- Continue Eliquis # FEN/PPx -- No IVF. Tube feeds. Eliquis. # Dispo -- Primary team is working on rehab placement. Can keep in ICU another day Hailee Hummel MD pGY1 ICU Resident
--- NOTE | 2018-04-10 10:31 | PN ---
Teaching Attending Note Name of Resident: Hailee Hummel ATTENDING PHYSICIAN STATEMENT I saw and evaluated the patient. I reviewed the resident's note and discussed the case with the resident. I agree with the resident's findings and plan as documented. SUBJECTIVE: Patient seen and examined in the ICU. Awake and responsive. Noted low grade fever overnight and rise in WBC. This AM afebrile and exam stable. Noted slight increase in LFTs. OBJECTIVE: Intake & Output 04/07/18 04/08/18 04/09/18 04/10/18 23:59 23:59 23:59 23:59 Intake Total 094 494 8643 560 Output Total 920 210 90 60 Balance -070 013 3050 500 Weight 139 lb 1.6 oz 141 lb 3.2 oz 135 lb 3 oz Last Vital Signs Temp Pulse Resp BP Pulse Ox 100.2 F H 112 H 22 111/67 98 04/10/18 08:00 04/10/18 08:00 04/10/18 08:00 04/10/18 08:00 04/10/18 08:15 Active Medications Acetaminophen (Tylenol Oral Solution -) 650 mg PO Q6H PRN PRN Reason: FEVER Last Admin: 04/05/18 06:35 Dose: 650 mg Acetaminophen (Ofirmev Injection -) 1,000 mg IVPB Q6H PRN PRN Reason: PAIN Last Admin: 04/06/18 14:51 Dose: 1,000 mg Amino Acids (Prosource No Carb Liquid Pkt) 30 ml PO BID [facility] Last Admin: 04/09/18 22:01 Dose: 30 ml Apixaban (Eliquis -) 5 mg PO BID [facility] Last Admin: 04/09/18 22:01 Dose: 5 mg Artificial Tears (Artificial Tears) 1 drop OU BID PRN PRN Reason: DRY EYES Last Admin: 03/30/18 10:34 Dose: 1 drop Insulin Aspart (Novolog Vial Sliding Scale -) 1 vial SQ ACHS [facility]; Protocol Last Admin: 04/10/18 06:22 Dose: Not Given Melatonin (Melatonin) 5 mg NR HS PRN PRN Reason: INSOMNIA Last Admin: 04/07/18 22:25 Dose: 5 mg Ondansetron HCl (Zofran Injection) 4 mg IVPUSH Q6H PRN PRN Reason: NAUSEA Ranitidine HCl (Zantac Oral Solution -) 150 mg NGT DAILY [facility] Last Admin: 04/09/18 10:47 Dose: 150 mg Saliva Substitute (Mouthkote Solution -) 1 applic MM DAILY [facility] Last Admin: 04/09/18 10:48 Dose: 1 applic Gen: awake, alert Heart: RRR Lung: decreased breath sounds at the bases Abd: soft, nontender Ext: no edema Laboratory Results - last 24 hr 04/09/18 04/09/18 04/09/18 05:52 12:43 18:10 WBC RBC Hgb Hct MCV MCH MCHC RDW Plt Count MPV Absolute Neuts (auto) Neutrophils % Lymphocytes % Monocytes % Eosinophils % Basophils % Nucleated RBC % Sodium Potassium Chloride Carbon Dioxide Anion Gap BUN Creatinine Creat Clearance w eGFR POC Glucometer 180.57740 122.33390 200.52835 Random Glucose Calcium Total Bilirubin AST ALT Alkaline Phosphatase Total Protein Albumin 04/09/18 04/10/18 04/10/18 22:29 05:50 05:50 WBC 15.4 H D RBC 4.15 Hgb 12.4 Hct 37.4 MCV 90.0 MCH 29.8 MCHC 33.2 RDW 15.0 Plt Count 489 H MPV 8.2 Absolute Neuts (auto) 13.2 Neutrophils % 85.7 H D Lymphocytes % 7.2 L D Monocytes % 5.9 Eosinophils % 0.6 Basophils % 0.6 Nucleated RBC % 0 Sodium 143 Potassium 4.2 Chloride 108 H Carbon Dioxide 28 Anion Gap 7 L BUN 33 H Creatinine 0.5 L Creat Clearance w eGFR > 60 POC Glucometer 124.53567 Random Glucose 128 H Calcium 9.1 Total Bilirubin 1.6 H D AST 72 H D ALT 93 H D Alkaline Phosphatase 259 H Total Protein 6.8 Albumin 2.0 L 04/10/18 06:14 WBC RBC Hgb Hct MCV MCH MCHC RDW Plt Count MPV Absolute Neuts (auto) Neutrophils % Lymphocytes % Monocytes % Eosinophils % Basophils % Nucleated RBC % Sodium Potassium Chloride Carbon Dioxide Anion Gap BUN Creatinine Creat Clearance w eGFR POC Glucometer 137.44144 Random Glucose Calcium Total Bilirubin AST ALT Alkaline Phosphatase Total Protein Albumin ASSESSMENT AND PLAN: Acute Hypoxic Respiratory Failure improving Pneumonia treated ARDS resolving Incarcerated Inguinal Hernia s/p ex-lap/segmental terminal ileum resection/primary anastamosis 03/13 r/o Acalculus Cholecystitis s/p percutaneous cholecystostomy Septic Shock resolved Acute Kidney Injury improved Lactic Acidosis resolved New onset Paroxysmal Atrial Fibrillation Diverticulosis BPH Critical Illness Polyneuropathy - Arora-culture for fever > 101 - continue anticoagulation - Follow LFTs - May need to re-image - monitor urine output, creatinine - O2 to keep SpO2 >90% - enteral feeds - rehab/PT - DVT/GI prophylaxis Dr Moreno Critical care time spent in reviewing chart, evaluating patient and formulating plan - 36 minutes.
--- NOTE | 2018-04-10 11:17 | PN ---
Progress Note, Physician Chief Complaint: SBO History of Present Illness: 82 yo male PMH BPH, degernerative disc disease (cervical), diverticulosis, hemorrhoids presented to the ED with abdominal pain and vomiting for on day. He reports that he was weight training yesterday and developed some groin pain. 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 gradually more responsive, intermittent clinical improvement. - Current Medication List Current Medications: Active Medications Acetaminophen (Tylenol Oral Solution -) 650 mg PO Q6H PRN PRN Reason: FEVER Last Admin: 04/05/18 06:35 Dose: 650 mg Acetaminophen (Ofirmev Injection -) 1,000 mg IVPB Q6H PRN PRN Reason: PAIN Last Admin: 04/06/18 14:51 Dose: 1,000 mg Amino Acids (Prosource No Carb Liquid Pkt) 30 ml PO BID [facility] Last Admin: 04/09/18 22:01 Dose: 30 ml Apixaban (Eliquis -) 5 mg PO BID [facility] Last Admin: 04/09/18 22:01 Dose: 5 mg Artificial Tears (Artificial Tears) 1 drop OU BID PRN PRN Reason: DRY EYES Last Admin: 03/30/18 10:34 Dose: 1 drop Insulin Aspart (Novolog Vial Sliding Scale -) 1 vial SQ [facility]; Protocol Last Admin: 04/10/18 06:22 Dose: Not Given Melatonin (Melatonin) 5 mg NR HS PRN PRN Reason: INSOMNIA Last Admin: 04/07/18 22:25 Dose: 5 mg Ondansetron HCl (Zofran Injection) 4 mg IVPUSH Q6H PRN PRN Reason: NAUSEA Ranitidine HCl (Zantac Oral Solution -) 150 mg NGT DAILY [facility] Last Admin: 04/09/18 10:47 Dose: 150 mg Saliva Substitute (Mouthkote Solution -) 1 applic MM DAILY [facility] Last Admin: 04/09/18 10:48 Dose: 1 applic - Objective Vital Signs: Vital Signs Temperature 100.2 F H 04/10/18 08:00 Pulse Rate 112 H 04/10/18 08:00 Respiratory Rate 22 04/10/18 08:00 Blood Pressure 111/67 04/10/18 08:00 O2 Sat by Pulse Oximetry (%) 98 04/10/18 08:15 Vital Signs Period Temp Pulse Resp BP Sys/Ceballos Pulse Ox Last 24 Hr 97.8 F-100.2 F 102-119 19-34 111-134/64-85 97-98 Intake & Output 04/09/18 04/10/18 04/10/18 23:59 07:59 15:59 Intake Total 740 560 Output Total 90 60 Balance 650 500 Weight 135 lb 3 oz Intake: IVPB 100 Tube Feeding 480 420 Tube Irrigant 160 140 Output: Drainage 90 60 Right Upper Abdomen 90 60 Other: Voiding Method Diaper Diaper # Unmeasured Voids Void 1 2 Bowel Movement Yes: diarrhea # Bowel Movements 2 Weight Measurement Method Built in [facility] Constitutional: Yes: No Distress, Calm, Thin Eyes: Yes: Conjunctiva Clear, EOM Intact HENT: Yes: Atraumatic, Normocephalic Neck: Yes: Supple, Trachea Midline Cardiovascular: Yes: Regular Rate and Rhythm, S1, S2 Respiratory: Yes: Regular, CTA Bilaterally, On Nasal O2 Gastrointestinal: Yes: Normal Bowel Sounds, Soft. No: Distention, Tenderness Genitourinary: No: CVA Tenderness - Left, CVA Tenderness - Right Musculoskeletal: Yes: Muscle Weakness Extremities: No: Cool, Cyanosis Edema: No Peripheral Pulses WNL: Yes Neurological: Yes: Alert, Oriented, Confusion, Weakness Psychiatric: Yes: Alert, Oriented Labs: CBC, BMP 04/10/18 05:50 04/10/18 05:50 INR, PTT INR 1.29 (0.82-1.09) H 04/06/18 05:20 Problem List - Problems (1) Strangulated inguinal hernia Assessment/Plan: 82yo male MMP relatively healthy with SBO abdominal pain non reducible LIH, unclear transition point and no clear bowel ischemia identified. Bibasilar pulmonary consolidation and hoarsness may be a sequela of an aspiration. POD#26 s/p Exploratory Laparotomy, segmental ressection of SB and primary stapled anastomosis for strangulated RIH. low grade fevers persists. Patient has soft bowel movements. Extubated on high flow NC. S/p percutaneous cholecystostomy and gastrostomy. ICU management Antibiotics per ID Feed to goal HEIDE Cholecystostomy management per IR Physical Therapy followup GI and DVT prophylaxsis D/C planning to labeling associate acute care facility to be determined will follow peripherally This patient is critically ill. Time spent reviewing chart, examining patient, talking with providers and/or family and documentation is 35 minutes Code(s): K40.30 - UNIL INGUINAL HERNIA, W OBST, W/O GANGR, NOT SPCF RECUR (2) Incarcerated left inguinal hernia Code(s): K40.30 - UNIL INGUINAL HERNIA, W OBST, W/O GANGR, NOT SPCF RECUR (3) BPH (benign prostatic hyperplasia) Code(s): N40.0 - BENIGN PROSTATIC HYPERPLASIA WITHOUT LOWER URINRY TRACT SYMP Qualifiers: Lower urinary tract symptom presence: symptoms present Lower urinary tract symptom detail: urinary frequency Qualified Code(s): N40.1 - Benign prostatic hyperplasia with lower urinary tract symptoms; R35.0 - Frequency of micturition ; R35.0 - Frequency of micturition (4) DDD (degenerative disc disease), cervical Code(s): M50.30 - OTHER CERVICAL DISC DEGENERATION, UNSP CERVICAL REGION (5) SBO (small bowel obstruction) Code(s): K56.609 - UNSP INTESTNL OBST, UNSP TO PARTIAL VERSUS COMPLETE OBST (6) Aspiration pneumonia of both lower lobes due to gastric secretions Code(s): J69.0 - PNEUMONITIS DUE TO INHALATION OF FOOD AND VOMIT
[2018-04-10] MEDS: RANITIDINE HCL 150 MG/10 ML UNIT-DOSE NGT SCH (11:51)
[2018-04-10] MEDS: AMINO ACIDS/PROTEIN HYDROLYS 30 ML LIQUID.PKT PO SCH ×2 (11:51→21:44)
[2018-04-10] MEDS: LYTES/YERBA SANTA 240 ML BOTTLE MM SCH (11:51)
[2018-04-10] MEDS: APIXABAN 5 MG TABLET PO SCH ×2 (11:51→21:44)
--- NOTE | 2018-04-10 13:41 | PN ---
Teaching Attending Note Name of Resident: Mukul White ATTENDING PHYSICIAN STATEMENT I saw and evaluated the patient. I reviewed the resident's note and discussed the case with the resident. I agree with the resident's findings and plan as documented. SUBJECTIVE: had fever last night , was placed in [place] . OBJECTIVE: Awake , looke tired .stronger voice , moves all extremities. CV: RRR. Lungs; decreased breath sounds at bases Abd: + BS. Mid line surgical wound. RUQ LEIF drain with brown fluid. Ext: no edema on LE ASSESSMENT AND PLAN: Unfortunate 82 y/o gentleman with h/o DJD, GERD, diverticulosis and other medical problems who presented with abd pain and was found to have SBO with bowel ischemia , and incarcerated hernia and developed acute resp failure and septic shock. 1- Acute hypoxic resp failure. due to severe sepsis and b/l PNA /ARDS. improved . - on NC now 2- fever : -blood cx , urine cx - send c diff - off Abx for now 3- Ischemic bowel and incarcerated inguinal hernia : s/p exploratory laparotomy and partial small bowel resection. 4- Possible acalculus cholecystitis : s/p cholecystostomy tube -cont with cholycystostomy tube 5-New onset A flutter/A fib: now in sinus rhythm. - cont eliquis at 5 BID. - rate controlled 6- R IJ thrombus /DVT: - Eliquis 7- S/P PEG: cont TF 8- ICU neuropathy. improving. dispo : now has fever , not ready for DC
--- NOTE | 2018-04-10 14:23 | PN ---
Progress Note, Physician History of Present Illness: patient more confused today had a fever sputum production family in room - Current Medication List Current Medications: Active Medications Acetaminophen (Tylenol Oral Solution -) 650 mg PO Q6H PRN PRN Reason: FEVER Last Admin: 04/05/18 06:35 Dose: 650 mg Acetaminophen (Ofirmev Injection -) 1,000 mg IVPB Q6H PRN PRN Reason: PAIN Last Admin: 04/06/18 14:51 Dose: 1,000 mg Amino Acids (Prosource No Carb Liquid Pkt) 30 ml PO BID [facility] Last Admin: 04/10/18 11:51 Dose: 30 ml Apixaban (Eliquis -) 5 mg PO BID [facility] Last Admin: 04/10/18 11:51 Dose: 5 mg Artificial Tears (Artificial Tears) 1 drop OU BID PRN PRN Reason: DRY EYES Last Admin: 03/30/18 10:34 Dose: 1 drop Insulin Aspart (Novolog Vial Sliding Scale -) 1 vial SQ [facility]; Protocol Last Admin: 04/10/18 13:21 Dose: 2 units Melatonin (Melatonin) 5 mg NR HS PRN PRN Reason: INSOMNIA Last Admin: 04/07/18 22:25 Dose: 5 mg Ondansetron HCl (Zofran Injection) 4 mg IVPUSH Q6H PRN PRN Reason: NAUSEA Ranitidine HCl (Zantac Oral Solution -) 150 mg NGT DAILY [facility] Last Admin: 04/10/18 11:51 Dose: 150 mg Saliva Substitute (Mouthkote Solution -) 1 applic MM DAILY [facility] Last Admin: 04/10/18 11:51 Dose: 1 applic - Objective Vital Signs: Vital Signs Temperature 98.7 F 04/10/18 10:00 Pulse Rate 108 H 04/10/18 12:00 Respiratory Rate 13 04/10/18 12:00 Blood Pressure 108/38 04/10/18 12:00 O2 Sat by Pulse Oximetry (%) 98 04/10/18 08:15 Constitutional: Yes: No Distress, Calm Cardiovascular: Yes: S1, S2 Respiratory: Yes: Poor Air Entry, Rhonchi, Other Gastrointestinal: Yes: Normal Bowel Sounds, Soft, Other (peg in place) Musculoskeletal: Yes: WNL Extremities: Yes: WNL Neurological: Yes: Alert, Confusion Psychiatric: Yes: Alert Labs: CBC, BMP 04/10/18 05:50 04/10/18 05:50 INR, PTT INR 1.29 (0.82-1.09) H 04/06/18 05:20 Assessment/Plan Problem List - Problems (1) Strangulated inguinal hernia Pulmonary evaluation - weaning today? GI Evaluation - Tbili 3.5, 3.6 BP goal MAP 65-70, has a stapled small bowel anastomosis avoid lwo flow states will follow Code(s): K40.30 - UNIL INGUINAL HERNIA, W OBST, W/O GANGR, NOT SPCF RECUR (2) Incarcerated left inguinal hernia Code(s): K40.30 - UNIL INGUINAL HERNIA, W OBST, W/O GANGR, NOT SPCF RECUR (3) BPH (benign prostatic hyperplasia) Code(s): N40.0 - BENIGN PROSTATIC HYPERPLASIA WITHOUT LOWER URINRY TRACT SYMP Qualifiers: Lower urinary tract symptom presence: symptoms present Lower urinary tract symptom detail: urinary frequency Qualified Code(s): N40.1 - Benign prostatic hyperplasia with lower urinary tract symptoms; R35.0 - Frequency of micturition ; R35.0 - Frequency of micturition (4) DDD (degenerative disc disease), cervical Code(s): M50.30 - OTHER CERVICAL DISC DEGENERATION, UNSP CERVICAL REGION (5) SBO (small bowel obstruction) Code(s): K56.609 - UNSP INTESTNL OBST, UNSP TO PARTIAL VERSUS COMPLETE OBST (6) Aspiration pneumonia of both lower lobes due to gastric secretions Code(s): J69.0 - PNEUMONITIS DUE TO INHALATION OF FOOD AND VOMIT r/o acalculus choley plan off of abx on nasal canula now close watch chest pt rest as per icu xray labs noted patient improving nutrition peg tube feeding will await for cx report get and xray chest if patient spikes fever then and chest xray shows some finding will restart abx cc 40 min
--- NOTE | 2018-04-10 15:17 | PN ---
Progress Note, INFORMATION RESOURCES MANAGER - Note Progress Note: Selected Entries 04/09/18 04/09/18 04/09/18 00:00 08:00 16:00 Supper NPO Temperature 98.5 F 98.2 F 97.8 F 04/09/18 04/09/18 04/10/18 18:00 22:00 02:00 Supper NPO Temperature 99.0 F 98.4 F 04/10/18 04/10/18 04/10/18 06:00 08:00 10:00 Supper Temperature 97.9 F 100.2 F H 98.7 F Laboratory Tests 04/09/18 04/10/18 05:53 05:50 WBC 8.0 15.4 H D OOB, confused, less verbally responsive. With moderate cues, voice production is stronger and more euphonic. Coughing/ Nose running. Family continues to be educated regarding strategies to facilitate orientation, communication, respiratory function and swallowing.
[2018-04-10] MEDS: ACETAMINOPHEN 650 MG/20.3 ML ORAL SOLUTION (CUPS) PO PRN ×2 (16:32→21:44)
--- NOTE | 2018-04-10 22:26 | PN ---
Physical Exam: SUBJECTIVE: Pt became acutely delirious overnight requiring a edy. Complacent now. no new complaints. OBJECTIVE: Vital Signs Period Temp Pulse Resp BP Sys/Ceballos Pulse Ox Last 24 Hr 97.9 F-100.2 F 102-121 13-30 102-130/38-77 98 GENERAL: NAD, alert today, laying in bed HEENT: KITTY, EOMI, L nare NG intact, MMM Neck: no JVD LUNGS: Aeration of lungs down to the bases. no overt rhonchi or rales . On 3LNC HEART: RRR, S1, S2 without murmur ABDOMEN: Soft, nondistended, nontender, C-tube draining brown fluid NEURO: Strength 5/5 in lower extremities, pt can now move arms 3/5. Phonation noted in voice EXTREMITIES: 2+ DP pulses, warm, no edema today SKIN: Warm, dry, no rash or lesions currently Laboratory Results - last 24 hr 04/09/18 04/10/18 04/10/18 22:29 05:50 05:50 WBC 15.4 H D RBC 4.15 Hgb 12.4 Hct 37.4 MCV 90.0 MCH 29.8 MCHC 33.2 RDW 15.0 Plt Count 489 H MPV 8.2 Absolute Neuts (auto) 13.2 Neutrophils % 85.7 H D Lymphocytes % 7.2 L D Monocytes % 5.9 Eosinophils % 0.6 Basophils % 0.6 Nucleated RBC % 0 Sodium 143 Potassium 4.2 Chloride 108 H Carbon Dioxide 28 Anion Gap 7 L BUN 33 H Creatinine 0.5 L Creat Clearance w eGFR > 60 POC Glucometer 124.58018 Random Glucose 128 H Calcium 9.1 Total Bilirubin 1.6 H D AST 72 H D ALT 93 H D Alkaline Phosphatase 259 H Total Protein 6.8 Albumin 2.0 L 04/10/18 04/10/18 04/10/18 06:14 12:46 18:53 WBC RBC Hgb Hct MCV MCH MCHC RDW Plt Count MPV Absolute Neuts (auto) Neutrophils % Lymphocytes % Monocytes % Eosinophils % Basophils % Nucleated RBC % Sodium Potassium Chloride Carbon Dioxide Anion Gap BUN Creatinine Creat Clearance w eGFR POC Glucometer 137.15375 194.78983 246.62116 Random Glucose Calcium Total Bilirubin AST ALT Alkaline Phosphatase Total Protein Albumin Active Medications Generic Name Dose Route Start Last Admin Trade Name Freq PRN Reason Stop Dose Admin Acetaminophen 650 mg 03/27/18 13:00 04/10/18 21:44 Tylenol Oral Solution - PO 650 mg Q6H PRN Administration FEVER Acetaminophen 1,000 mg 04/06/18 14:51 04/06/18 14:51 Ofirmev Injection - IVPB 1,000 mg Q6H PRN Administration PAIN Amino Acids 30 ml 04/07/18 22:00 04/10/18 21:44 Prosource No Carb Liquid Pkt PO 30 ml BID [facility]Y Administration Apixaban 5 mg 04/08/18 11:15 04/10/18 21:44 Eliquis - PO 5 mg BID [facility] Administration Artificial Tears 1 drop 03/24/18 10:59 03/30/18 10:34 Artificial Tears OU 1 drop BID PRN Administration DRY EYES Insulin Aspart 1 vial 03/23/18 11:00 04/10/18 21:53 Novolog Vial Sliding Scale - SQ Not Given ACHS JUDY Protocol Melatonin 5 mg 04/07/18 22:00 04/07/18 22:25 Melatonin NR 5 mg HS PRN Administration INSOMNIA Ondansetron HCl 4 mg 03/13/18 04:30 Zofran Injection IVPUSH Q6H PRN NAUSEA Ranitidine HCl 150 mg 04/03/18 11:45 04/10/18 11:51 Zantac Oral Solution - NGT 150 mg DAILY [facility] Administration Saliva Substitute 1 applic 04/07/18 22:13 04/10/18 11:51 Mouthkote Solution - MM 1 applic DAILY [facility] Administration ASSESSMENT/PLAN: 1) Acute hypoxic respiratory failure --Resolving, extubated; 03/28 --Continue 3LNC --Aspiration precautions: HOB elevated 2) Toxic metabolic neuropathy --Continue PT --When pt reinitiates feed through G-tube can start on NOAC orally for AC rather than heparin gtt to minimize fluid intake --IR PEG placed --> Perative per dietary recommendation 3) Septic shock 2/2 to bowel ischemia in addition to aspiration PNA --ID on board --Fever spike and WBC increase today noted --Monitor 4) Elevated LFTs --Stable --Discussed with IR and will need to keep C-tube for long duration before pulling 5) Atrial flutter/fib --Cardiology consulted --Eliquis 5mg GT BID --Echo unremarkable FEN: Fluids: Avoid E: No abnormalities Nutrition: Perative and Prosource BID PPX: DVT - Eliquis as above GI - Protonix 40mg IVP daily Dispo: [facility] for acute rehab Case discussed with Dr. Mati White, DO - IM PGY-1 Visit type - Emergency Visit Emergency Visit: No - New Patient This patient is new to me today: No - Critical Care Critical Care patient: No
[2018-04-11] MEDS: BANATROL PLUS POWDER PACKET PO SCH ×3 (05:42→21:00)
[2018-04-11 06:19] LABS: ALBUMIN 1.9 g/dl (3.4-5.0); ANION GAP 5 (8-16); BLOOD UREA NITROGEN 37 mg/dL (7-18); CALCIUM 9.2 mg/dL (8.5-10.1); CHLORIDE 111 mmol/L (98-107); CO2 28 mmol/L (21-32); CREATININE 0.5 mg/dL (0.7-1.3); GLUCOSE,RANDOM 123 mg/dL (74-106); POTASSIUM 4.1 mmol/L (3.5-5.1); SGOT/AST 71 U/L (15-37); SGPT/ALT 122 U/L (12-78); SODIUM 144 mmol/L (136-145)
[2018-04-11 06:22] LABS: ALK PHOS 247 U/L (45-117); BILIRUBIN,TOTAL 1.1 mg/dL (0.2-1.0); TOT PROT 6.7 g/dl (6.4-8.2)
[2018-04-11 06:23] LABS: HEMOGLOBIN 12.1 GM/dL (11.7-16.9); MCHC 33.6 g/dl (32.0-35.9); MEAN CELL VOLUME 89.3 fl (80-96); MEAN PLT VOLUME 8.6 fl (7.5-11.1); PLATELET COUNT 427 K/MM3 (134-434); RBC 4.03 M/mm3 (4.00-5.60); RDW 14.9 % (11.9-15.9); WHITE BLOOD COUNT 14.7 K/mm3 (4.0-10.0)
[2018-04-11] MEDS: INSULIN SLIDING SCALE (NOVOLOG) 1 VIAL SQ SCH ×5 (06:25→22:15)
--- NOTE | 2018-04-11 07:13 | PN ---
Progress Note (short form) - Note Progress Note: Chief Complaint: septic shock History of Present Illness: awake, less interactive, appears more confused. sitting in chair today, sleepy. + clear nasal drainage. fevers overnight and rising wbc. Current Medications Acetaminophen (Tylenol Oral Solution -) 650 mg PO Q6H PRN PRN Reason: FEVER Acetaminophen (Ofirmev Injection -) 1,000 mg IVPB Q6H PRN PRN Reason: PAIN Amino Acids (Prosource No Carb Liquid Pkt) 30 ml PO BID [facility] Apixaban (Eliquis -) 5 mg PO BID [facility] Artificial Tears (Artificial Tears) 1 drop OU BID PRN PRN Reason: DRY EYES Insulin Aspart (Novolog Vial Sliding Scale -) 1 vial SQ [facility]; Protocol Melatonin (Melatonin) 5 mg NR HS PRN PRN Reason: INSOMNIA Ondansetron HCl (Zofran Injection) 4 mg IVPUSH Q6H PRN PRN Reason: NAUSEA Ranitidine HCl (Zantac Oral Solution -) 150 mg NGT DAILY [facility] Saliva Substitute (Mouthkote Solution -) 1 applic MM DAILY [facility] Vital Signs - 24 hr 04/10/18 04/10/18 04/10/18 08:00 08:15 10:00 Temperature 100.2 F H 98.7 F Pulse Rate 112 H 110 H Respiratory 22 24 Rate Blood Pressure 111/67 102/56 O2 Sat by Pulse 98 Oximetry (%) 04/10/18 04/10/18 04/10/18 12:00 14:00 16:00 Temperature 99.3 F Pulse Rate 108 H 120 H 121 H Respiratory 13 30 H 29 H Rate Blood Pressure 108/38 106/77 104/57 O2 Sat by Pulse Oximetry (%) nad no jvd trace bibasilar rales, poor eff rrr nl s1s2 no mrg + bs soft nt nd trace dependent edema bl, no c/c no jaundice diaphoresis lethargic Labs: Laboratory Tests 04/10/18 04/10/18 05:50 05:50 WBC 15.4 H D Hgb 12.4 Sodium 143 Potassium 4.2 Carbon Dioxide 28 BUN 33 H Creatinine 0.5 L Total Bilirubin 1.6 H D AST 72 H D ALT 93 H D Alkaline Phosphatase 259 H Albumin 2.0 L tele: sinus tach, jump to the 120's late this afternoon. ecg: sr, nl intervals, no ischemic changes head ct: no acute pathology echo 02/2018: nl lv/rv, mild mr/tr/ar RUE u/s: nonocclusive thrombus in Rt int jugular vein. a/p: 82 m hx gerd, bph, here with abd pain/sepsis - found to have sbo, now s/p OR hospital course c/b new afib. septic shock/sbo/cholecystitis/asp pna: -s/p ex-lap/segmental terminal ileum resection/primary anastamosis 03/13 -Suspected Acalculus Cholecystitis s/p percutaneous cholecystostomy 03/20 -asp pna -now extubated, off pressors. bp stable. abx per ID. -s/p Peg -receiving IV lasix prn per CXR appearing congested, last needed 03/31. new pafib --> conversion to sr: -new onset here. rate controlled w/o meds. 03/25 converted to sr-->remains in sinus -echo unremarkable -chadsvasc warrants ac. continue eliquis. - 04/10, HR up to 120's, but appears sinus. patient currently with temp of 99, not technically fever, but would administer tylenol to see if HR improves. Pain /infectious eval per pmd. patient with + clear nasal drainage and hx of prolonged ngt. lfts worsening. RUE DVT - AC as above.
[2018-04-11] MEDS: AMINO ACIDS/PROTEIN HYDROLYS 30 ML LIQUID.PKT PO SCH ×2 (09:09→21:00)
[2018-04-11] MEDS: RANITIDINE HCL 150 MG/10 ML UNIT-DOSE NGT SCH (09:09)
[2018-04-11] MEDS: APIXABAN 5 MG TABLET PO SCH ×2 (09:10→21:00)
[2018-04-11] MEDS: LYTES/YERBA SANTA 240 ML BOTTLE MM SCH (09:18)
--- NOTE | 2018-04-11 10:09 | PN ---
Progress Note, Physician Chief Complaint: resp failure History of Present Illness: no sob per family in the room. pt following commands but not communicative, fully alert though. out of bed and doing more PT/exercises today than usual. - Current Medication List Current Medications: Active Medications Acetaminophen (Tylenol Oral Solution -) 650 mg PO Q6H PRN PRN Reason: FEVER Last Admin: 04/10/18 21:44 Dose: 650 mg Acetaminophen (Ofirmev Injection -) 1,000 mg IVPB Q6H PRN PRN Reason: PAIN Last Admin: 04/06/18 14:51 Dose: 1,000 mg Amino Acids (Prosource No Carb Liquid Pkt) 30 ml PO BID [facility] Last Admin: 04/11/18 09:09 Dose: 30 ml Apixaban (Eliquis -) 5 mg PO BID [facility] Last Admin: 04/11/18 09:10 Dose: 5 mg Artificial Tears (Artificial Tears) 1 drop OU BID PRN PRN Reason: DRY EYES Last Admin: 03/30/18 10:34 Dose: 1 drop Insulin Aspart (Novolog Vial Sliding Scale -) 1 vial SQ ACHS [facility]; Protocol Last Admin: 04/11/18 06:25 Dose: Not Given Melatonin (Melatonin) 5 mg NR HS PRN PRN Reason: INSOMNIA Last Admin: 04/07/18 22:25 Dose: 5 mg Ondansetron HCl (Zofran Injection) 4 mg IVPUSH Q6H PRN PRN Reason: NAUSEA Ranitidine HCl (Zantac Oral Solution -) 150 mg NGT DAILY [facility] Last Admin: 04/11/18 09:09 Dose: 150 mg Saliva Substitute (Mouthkote Solution -) 1 applic MM DAILY [facility] Last Admin: 04/11/18 09:18 Dose: 1 applic - Objective Vital Signs: Vital Signs Temperature 98.4 F 04/11/18 06:00 Pulse Rate 95 H 04/11/18 06:00 Respiratory Rate 20 04/11/18 06:00 Blood Pressure 108/64 04/11/18 06:00 O2 Sat by Pulse Oximetry (%) 98 04/10/18 21:00 Constitutional: Yes: Well Nourished, No Distress, Calm Cardiovascular: Yes: Regular Rate and Rhythm (decr intensity), S1, S2. No: Bradycardia, Gallop Respiratory: Yes: Regular (decr intensity (and not taking deep breaths for me)) , CTA Bilaterally. No: Accessory Muscle Use Extremities: No: Cold Edema: No Neurological: Yes: Alert. No: Seizure Psychiatric: No: Agitated Labs: CBC, BMP 04/11/18 05:45 04/11/18 05:45 INR, PTT INR 1.29 (0.82-1.09) H 04/06/18 05:20 Assessment/Plan tele: sinus tach, no fib ecg: sr, nl intervals, no ischemic changes head ct: no acute pathology echo 02/2018: nl lv/rv, mild mr/tr/ar RUE u/s: nonocclusive thrombus in Rt int jugular vein. a/p: 82 m hx gerd, bph, here with abd pain/sepsis - found to have sbo, now s/p OR hospital course c/b new afib. septic shock/sbo/cholecystitis/asp pna: -s/p ex-lap/segmental terminal ileum resection/primary anastamosis 03/13 -Suspected Acalculus Cholecystitis s/p percutaneous cholecystostomy 03/20 -asp pna -now extubated, off pressors. bp stable. abx per ID. -s/p Peg -receiving IV lasix prn per CXR appearing congested, last needed 03/31. new pafib --> conversion to sr: -new onset here. rate controlled w/o meds. 03/25 converted to sr-->remains in sinus -echo unremarkable -chadsvasc warrants ac. continue eliquis. -sinus tach, no AF on tele --deferring AVN blockers (low end BP, AF previously controlled without meds) RUE DVT - AC as above.
--- NOTE | 2018-04-11 11:10 | PN ---
Progress Note, Physician History of Present Illness: doing better not confused wbc trending down breathing better remaining afebrile - Current Medication List Current Medications: Active Medications Acetaminophen (Tylenol Oral Solution -) 650 mg PO Q6H PRN PRN Reason: FEVER Last Admin: 04/10/18 21:44 Dose: 650 mg Acetaminophen (Ofirmev Injection -) 1,000 mg IVPB Q6H PRN PRN Reason: PAIN Last Admin: 04/06/18 14:51 Dose: 1,000 mg Amino Acids (Prosource No Carb Liquid Pkt) 30 ml PO BID [facility] Last Admin: 04/11/18 09:09 Dose: 30 ml Apixaban (Eliquis -) 5 mg PO BID [facility] Last Admin: 04/11/18 09:10 Dose: 5 mg Artificial Tears (Artificial Tears) 1 drop OU BID PRN PRN Reason: DRY EYES Last Admin: 03/30/18 10:34 Dose: 1 drop Insulin Aspart (Novolog Vial Sliding Scale -) 1 vial SQ ACHS [facility]; Protocol Last Admin: 04/11/18 06:25 Dose: Not Given Melatonin (Melatonin) 5 mg NR HS PRN PRN Reason: INSOMNIA Last Admin: 04/07/18 22:25 Dose: 5 mg Ondansetron HCl (Zofran Injection) 4 mg IVPUSH Q6H PRN PRN Reason: NAUSEA Ranitidine HCl (Zantac Oral Solution -) 150 mg NGT DAILY [facility] Last Admin: 04/11/18 09:09 Dose: 150 mg Saliva Substitute (Mouthkote Solution -) 1 applic MM DAILY [facility] Last Admin: 04/11/18 09:18 Dose: 1 applic - Objective Vital Signs: Vital Signs Temperature 99.1 F 04/11/18 10:00 Pulse Rate 102 H 04/11/18 10:00 Respiratory Rate 20 04/11/18 10:00 Blood Pressure 102/61 04/11/18 10:00 O2 Sat by Pulse Oximetry (%) 97 04/11/18 09:00 Constitutional: Yes: No Distress, Calm Cardiovascular: Yes: Regular Rate and Rhythm Respiratory: Yes: Regular, Poor Air Entry Gastrointestinal: Yes: Normal Bowel Sounds, Soft, Other (peg tube in place) Musculoskeletal: Yes: WNL Extremities: Yes: WNL Neurological: Yes: Alert, Oriented Psychiatric: Yes: Alert, Oriented Labs: CBC, BMP 04/11/18 05:45 04/11/18 05:45 INR, PTT INR 1.29 (0.82-1.09) H 04/06/18 05:20 Assessment/Plan Problem List - Problems (1) Strangulated inguinal hernia Pulmonary evaluation - weaning today? GI Evaluation - Tbili 3.5, 3.6 BP goal MAP 65-70, has a stapled small bowel anastomosis avoid lwo flow states will follow Code(s): K40.30 - UNIL INGUINAL HERNIA, W OBST, W/O GANGR, NOT SPCF RECUR (2) Incarcerated left inguinal hernia Code(s): K40.30 - UNIL INGUINAL HERNIA, W OBST, W/O GANGR, NOT SPCF RECUR (3) BPH (benign prostatic hyperplasia) Code(s): N40.0 - BENIGN PROSTATIC HYPERPLASIA WITHOUT LOWER URINRY TRACT SYMP Qualifiers: Lower urinary tract symptom presence: symptoms present Lower urinary tract symptom detail: urinary frequency Qualified Code(s): N40.1 - Benign prostatic hyperplasia with lower urinary tract symptoms; R35.0 - Frequency of micturition ; R35.0 - Frequency of micturition (4) DDD (degenerative disc disease), cervical Code(s): M50.30 - OTHER CERVICAL DISC DEGENERATION, UNSP CERVICAL REGION (5) SBO (small bowel obstruction) Code(s): K56.609 - UNSP INTESTNL OBST, UNSP TO PARTIAL VERSUS COMPLETE OBST (6) Aspiration pneumonia of both lower lobes due to gastric secretions Code(s): J69.0 - PNEUMONITIS DUE TO INHALATION OF FOOD AND VOMIT r/o acalculus choley plan continue monitoring off of abx watch for any fevers monitor wbc close watch chest pt rest as per icu xray labs noted patient improving nutrition peg tube feeding cc 40 min
--- NOTE | 2018-04-11 11:29 | PN ---
Progress Note (short form) - Note Progress Note: Seen and examined in the ICU Patient awake and alert x3, mental status improved from yesterday Afebrile overnight, BP stable OOB to chair yesterday bilis improved, slight increase in transaminitis Current Medications Acetaminophen (Tylenol Oral Solution -) 650 mg PO Q6H PRN PRN Reason: FEVER Last Admin: 04/10/18 21:44 Dose: 650 mg Acetaminophen (Ofirmev Injection -) 1,000 mg IVPB Q6H PRN PRN Reason: PAIN Last Admin: 04/06/18 14:51 Dose: 1,000 mg Amino Acids (Prosource No Carb Liquid Pkt) 30 ml PO BID JUDY Last Admin: 04/11/18 09:09 Dose: 30 ml Apixaban (Eliquis -) 5 mg PO BID JUDY Last Admin: 04/11/18 09:10 Dose: 5 mg Artificial Tears (Artificial Tears) 1 drop OU BID PRN PRN Reason: DRY EYES Last Admin: 03/30/18 10:34 Dose: 1 drop Insulin Aspart (Novolog Vial Sliding Scale -) 1 vial SQ [facility]; Protocol Last Admin: 04/11/18 06:25 Dose: Not Given Melatonin (Melatonin) 5 mg NR HS PRN PRN Reason: INSOMNIA Last Admin: 04/07/18 22:25 Dose: 5 mg Ondansetron HCl (Zofran Injection) 4 mg IVPUSH Q6H PRN PRN Reason: NAUSEA Ranitidine HCl (Zantac Oral Solution -) 150 mg NGT DAILY [facility] Last Admin: 04/11/18 09:09 Dose: 150 mg Saliva Substitute (Mouthkote Solution -) 1 applic MM DAILY [facility] Last Admin: 04/11/18 09:18 Dose: 1 applic Vital Signs Period Temp Pulse Resp BP Sys/Ceballos Pulse Ox Last 24 Hr 98.4 F-99.4 F 95-121 13-30 101-135/38-77 97-98 Intake & Output 04/08/18 04/09/18 04/10/18 04/11/18 23:59 23:59 23:59 23:59 Intake Total 920 1230 1840 560 Output Total 210 90 121 40 Balance 710 1140 1719 520 Weight 64.047 kg 61.32 kg 61.405 kg General: elderly man in bed, awake and alert w/o distress HEENT: PERRL CV: sinus tachycardia Pulm: CTA Abd: SNTND, slim tube w/ bilious drainage, PEG site c/d/i Ext: WWP no edema Neuro: AOx3 CBC, BMP 04/11/18 05:45 04/11/18 05:45 ASSESSMENT AND PLAN: Acute Hypoxic Respiratory Failure improving no on RA Pneumonia treated ARDS resolving Incarcerated Inguinal Hernia s/p ex-lap/segmental terminal ileum resection/primary anastamosis 03/13 r/o Acalculus Cholecystitis s/p percutaneous cholecystostomy Septic Shock resolved Acute Kidney Injury improved Lactic Acidosis resolved New onset Paroxysmal Atrial Fibrillation Diverticulosis BPH Critical Illness Polyneuropathy - Arora-culture for fever > 101, f/u cultures from 04/10 - continue anticoagulation - Follow LFTs - monitor urine output, creatinine - O2 to keep SpO2 >90% - enteral feeds - rehab/PT - DVT/GI prophylaxis stable for tele bed Boerem ACNP Pulm/CCM CCT: 35m
--- NOTE | 2018-04-11 12:10 | PN ---
Teaching Attending Note Name of Resident: Suhail Garza ATTENDING PHYSICIAN STATEMENT I saw and evaluated the patient. I reviewed the resident's note and discussed the case with the resident. I agree with the resident's findings and plan as documented. SUBJECTIVE: no fever or chills . No abd pain. No OSB, no events over night OBJECTIVE: Awake.stronger voice , moves all extremities. CV: RRR. Lungs; decreased breath sounds at bases Abd: + BS. Mid line surgical wound. RUQ LEIF drain with brown fluid. Ext: no edema on LE ASSESSMENT AND PLAN: Unfortunate 82 y/o gentleman with h/o DJD, GERD, diverticulosis and other medical problems who presented with abd pain and was found to have SBO with bowel ischemia , and incarcerated hernia and developed acute resp failure and septic shock. 1- Acute hypoxic resp failure. due to severe sepsis and b/l PNA /ARDS. improved . - on NC now 2- fever : resolved , WBC improved -repeat blood cx , urine cx pending -c diff Neg - off Abx for now . c ont to monitor 3- Ischemic bowel and incarcerated inguinal hernia : s/p exploratory laparotomy and partial small bowel resection. 4- Possible acalculus cholecystitis : s/p cholecystostomy tube -cont with cholycystostomy tube. 5-New onset A flutter/A fib: now in sinus rhythm. - cont eliquis at 5 BID. - rate controlled 6- R IJ thrombus /DVT: - Eliquis 7- S/P PEG: cont TF 8- ICU neuropathy. improving. Dispo : placement pending
--- NOTE | 2018-04-11 13:49 | PN ---
Physical Exam: SUBJECTIVE: Patient seen and examined. lying comfortably in bed appears much better. no new complaints. afebrile. on tube feed 60ml/hr continuously encourage patient to speak OBJECTIVE: Vital Signs Period Temp Pulse Resp BP Sys/Ceballos Pulse Ox Last 24 Hr 98.4 F-99.4 F 95-121 19-30 101-135/56-77 97-98 GENERAL: alert today, laying in bed Neck: no JVD LUNGS: b/l air entry present, no wheez, no crackels, on room air HEART: RRR, S1, S2 without murmur ABDOMEN: Soft, nondistended, nontender, C-tube draining wellington yellow bile EXTREMITIES: 2+ DP pulses, warm, no edema today SKIN: Warm, dry, no rash or lesions curre Laboratory Results - last 24 hr 04/10/18 04/10/18 04/11/18 18:53 21:51 05:39 WBC RBC Hgb Hct MCV MCH MCHC RDW Plt Count MPV Sodium Potassium Chloride Carbon Dioxide Anion Gap BUN Creatinine Creat Clearance w eGFR POC Glucometer 246.94012 115.25433 138.98145 Random Glucose Calcium Total Bilirubin AST ALT Alkaline Phosphatase Total Protein Albumin 04/11/18 04/11/18 05:45 05:45 WBC 14.7 H RBC 4.03 Hgb 12.1 Hct 36.0 MCV 89.3 MCH 30.0 MCHC 33.6 RDW 14.9 Plt Count 427 MPV 8.6 Sodium 144 Potassium 4.1 Chloride 111 H Carbon Dioxide 28 Anion Gap 5 L BUN 37 H Creatinine 0.5 L Creat Clearance w eGFR > 60 POC Glucometer Random Glucose 123 H Calcium 9.2 Total Bilirubin 1.1 H D AST 71 H ALT 122 H D Alkaline Phosphatase 247 H Total Protein 6.7 Albumin 1.9 L Active Medications Generic Name Dose Route Start Last Admin Trade Name Freq PRN Reason Stop Dose Admin Acetaminophen 650 mg 03/27/18 13:00 04/10/18 21:44 Tylenol Oral Solution - PO 650 mg Q6H PRN Administration FEVER Acetaminophen 1,000 mg 04/06/18 14:51 04/06/18 14:51 Ofirmev Injection - IVPB 1,000 mg Q6H PRN Administration PAIN Amino Acids 30 ml 04/07/18 22:00 04/11/18 09:09 Prosource No Carb Liquid Pkt PO 30 ml BID JUDY Administration Apixaban 5 mg 04/08/18 11:15 04/11/18 09:10 Eliquis - PO 5 mg BID JUDY Administration Artificial Tears 1 drop 03/24/18 10:59 03/30/18 10:34 Artificial Tears OU 1 drop BID PRN Administration DRY EYES Insulin Aspart 1 vial 03/23/18 11:00 04/11/18 11:00 Novolog Vial Sliding Scale - SQ Not Given [facility] Protocol Melatonin 5 mg 04/07/18 22:00 04/07/18 22:25 Melatonin NR 5 mg HS PRN Administration INSOMNIA Ondansetron HCl 4 mg 03/13/18 04:30 Zofran Injection IVPUSH Q6H PRN NAUSEA Ranitidine HCl 150 mg 04/03/18 11:45 04/11/18 09:09 Zantac Oral Solution - NGT 150 mg DAILY [facility] Administration Saliva Substitute 1 applic 04/07/18 22:13 04/11/18 09:18 Mouthkote Solution - MM 1 applic DAILY [facility] Administration ASSESSMENT/PLAN: 1- Acute hypoxic resp failure. due to severe sepsis and b/l PNA /ARDS. improved . - on room air. - spo2 > 90 - no distress 2- Ischemic bowel and incarcerated inguinal hernia : s/p exploratory laparotomy and partial small bowel resection. afebrile tolerating tube feed urine output adequate stool for c diff negative wbc trending down monitor vitals monitor intake output. had bowel movement yesterday. patient is on high protein diet and prosource. 3 - Possible acalculus cholecystitis : s/p cholecystostomy tube cont with cholycystostomy tube. draining well[place] yellow bile. 4 -New onset A flutter/A fib: now in sinus rhythm. - cont eliquis at 5 BID. - rate controlled without meds - cardiology on case 6- R IJ thrombus /DVT: - Eliquis 7- S/P PEG: tube feed 60ml/hr. fluid: tube feed electrolyte: repeat in am nutrition : tube feed Dispo : placement pending Visit type - Emergency Visit Emergency Visit: Yes ED Registration Date: 03/12/18 Care time: The patient presented to the Emergency Department on the above date and was hospitalized for further evaluation of their emergent condition. - New Patient This patient is new to me today: No - Critical Care Critical Care patient: Yes Total Critical Care Time (in minutes): 45 Critical Care Statement: The care of this patient involved high complexity decision making to prevent further life threatening deterioration of the patient 's condition and/or to evaluate & treat vital organ system(s) failure or risk of failure.
--- NOTE | 2018-04-11 17:59 | PN ---
Progress Note, Physician Chief Complaint: SBO History of Present Illness: 82 yo male PMH BPH, degernerative disc disease (cervical), diverticulosis, hemorrhoids presented to the ED with abdominal pain and vomiting for on day. He reports that he was weight training yesterday and developed some groin pain. 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 gradually more responsive, intermittent clinical improvement. - Current Medication List Current Medications: Active Medications Acetaminophen (Tylenol Oral Solution -) 650 mg PO Q6H PRN PRN Reason: FEVER Last Admin: 04/10/18 21:44 Dose: 650 mg Acetaminophen (Ofirmev Injection -) 1,000 mg IVPB Q6H PRN PRN Reason: PAIN Last Admin: 04/06/18 14:51 Dose: 1,000 mg Amino Acids (Prosource No Carb Liquid Pkt) 30 ml PO BID JUDY Last Admin: 04/11/18 09:09 Dose: 30 ml Apixaban (Eliquis -) 5 mg PO BID [facility] Last Admin: 04/11/18 09:10 Dose: 5 mg Artificial Tears (Artificial Tears) 1 drop OU BID PRN PRN Reason: DRY EYES Last Admin: 03/30/18 10:34 Dose: 1 drop Insulin Aspart (Novolog Vial Sliding Scale -) [address] [facility]; Protocol Last Admin: 04/11/18 16:59 Dose: 2 units Melatonin (Melatonin) 5 mg NR HS PRN PRN Reason: INSOMNIA Last Admin: 04/07/18 22:25 Dose: 5 mg Ondansetron HCl (Zofran Injection) 4 mg IVPUSH Q6H PRN PRN Reason: NAUSEA Ranitidine HCl (Zantac Oral Solution -) 150 mg NGT DAILY [facility] Last Admin: 04/11/18 09:09 Dose: 150 mg Saliva Substitute (Mouthkote Solution -) 1 applic MM DAILY [facility] Last Admin: 04/11/18 09:18 Dose: 1 applic - Objective Vital Signs: Vital Signs Temperature 98.3 F 04/11/18 14:00 Pulse Rate 112 H 04/11/18 16:00 Respiratory Rate 20 04/11/18 16:00 Blood Pressure 115/70 04/11/18 16:00 O2 Sat by Pulse Oximetry (%) 97 04/11/18 10:00 Constitutional: Yes: Well Nourished, No Distress, Calm Eyes: Yes: Conjunctiva Clear, EOM Intact HENT: Yes: Atraumatic, Normocephalic Neck: Yes: Supple, Trachea Midline Cardiovascular: Yes: Regular Rate and Rhythm Respiratory: Yes: Regular, CTA Bilaterally, On Nasal O2 Gastrointestinal: Yes: Normal Bowel Sounds, Soft. No: Tenderness ...Rectal Exam: Yes: Deferred Neurological: Yes: Alert, Oriented Psychiatric: Yes: Alert, Oriented Labs: CBC, BMP 04/11/18 05:45 04/11/18 05:45 INR, PTT INR 1.29 (0.82-1.09) H 04/06/18 05:20 Problem List - Problems (1) Strangulated inguinal hernia Assessment/Plan: 82yo male MMP relatively healthy with SBO abdominal pain non reducible LIH, unclear transition point and no clear bowel ischemia identified. Bibasilar pulmonary consolidation and hoarsness may be a sequela of an aspiration. POD#26 s/p Exploratory Laparotomy, segmental ressection of SB and primary stapled anastomosis for strangulated RIH. low grade fevers persists. Patient has soft bowel movements. Extubated on high flow NC. S/p percutaneous cholecystostomy and gastrostomy. ICU management Antibiotics per ID Feed to goal HEIDE Cholecystostomy management per IR Physical Therapy followup GI and DVT prophylaxsis D/C planning to long-term acute care facility to be determined will follow peripherally This patient is critically ill. Time spent reviewing chart, examining patient, talking with providers and/or family and documentation is 35 minutes Code(s): K40.30 - UNIL INGUINAL HERNIA, W OBST, W/O GANGR, NOT SPCF RECUR (2) Incarcerated left inguinal hernia Code(s): K40.30 - UNIL INGUINAL HERNIA, W OBST, W/O GANGR, NOT SPCF RECUR (3) BPH (benign prostatic hyperplasia) Code(s): N40.0 - BENIGN PROSTATIC HYPERPLASIA WITHOUT LOWER URINRY TRACT SYMP Qualifiers: Lower urinary tract symptom presence: symptoms present Lower urinary tract symptom detail: urinary frequency Qualified Code(s): N40.1 - Benign prostatic hyperplasia with lower urinary tract symptoms; R35.0 - Frequency of micturition ; R35.0 - Frequency of micturition (4) DDD (degenerative disc disease), cervical Code(s): M50.30 - OTHER CERVICAL DISC DEGENERATION, UNSP CERVICAL REGION (5) SBO (small bowel obstruction) Code(s): K56.609 - UNSP INTESTNL OBST, UNSP TO PARTIAL VERSUS COMPLETE OBST (6) Aspiration pneumonia of both lower lobes due to gastric secretions Code(s): J69.0 - PNEUMONITIS DUE TO INHALATION OF FOOD AND VOMIT
[2018-04-12] MEDS: INSULIN SLIDING SCALE (NOVOLOG) 1 VIAL SQ SCH ×4 (06:21→21:20)
[2018-04-12] MEDS: BANATROL PLUS POWDER PACKET PO SCH ×3 (06:21→22:23)
[2018-04-12 06:55] LABS: ALBUMIN 1.8 g/dl (3.4-5.0); ALK PHOS 210 U/L (45-117); ANION GAP 9 (8-16); BILIRUBIN,DIRECT 0.6 mg/dL (0.0-0.2); BILIRUBIN,TOTAL 0.8 mg/dL (0.2-1.0); BLOOD UREA NITROGEN 30 mg/dL (7-18); CALCIUM 9.2 mg/dL (8.5-10.1); CHLORIDE 111 mmol/L (98-107); CO2 26 mmol/L (21-32); CREATININE 0.5 mg/dL (0.7-1.3); GLUCOSE,RANDOM 107 mg/dL (74-106); MAGNESIUM 1.9 mg/dL (1.8-2.4); PHOSPHOROUS 3.5 mg/dL (2.5-4.9); SGOT/AST 38 U/L (15-37); SGPT/ALT 88 U/L (12-78); SODIUM 146 mmol/L (136-145); TOT PROT 6.3 g/dl (6.4-8.2)
[2018-04-12 07:03] LABS: HEMATOCRIT 35.2 % (35.4-49); HEMOGLOBIN 11.7 GM/dL (11.7-16.9); MCH 29.8 pg (25.7-33.7); MCHC 33.4 g/dl (32.0-35.9); MEAN CELL VOLUME 89.4 fl (80-96); MEAN PLT VOLUME 8.6 fl (7.5-11.1); PLATELET COUNT 367 K/MM3 (134-434); RBC 3.94 M/mm3 (4.00-5.60); RDW 14.9 % (11.9-15.9); WHITE BLOOD COUNT 13.9 K/mm3 (4.0-10.0)
[2018-04-12] MEDS: LYTES/YERBA SANTA 240 ML BOTTLE MM SCH (09:04)
[2018-04-12] MEDS: APIXABAN 5 MG TABLET PO SCH ×2 (09:04→21:19)
[2018-04-12] MEDS: AMINO ACIDS/PROTEIN HYDROLYS 30 ML LIQUID.PKT PO SCH ×2 (09:05→21:19)
--- NOTE | 2018-04-12 09:05 | PN ---
Progress Note, Physician Chief Complaint: resp failure History of Present Illness: non-verbal. alert with edy on, sleepy (awake all night per nurse), appears comfortable - Current Medication List Current Medications: Active Medications Acetaminophen (Tylenol Oral Solution -) 650 mg PO Q6H PRN PRN Reason: FEVER Last Admin: 04/10/18 21:44 Dose: 650 mg Acetaminophen (Ofirmev Injection -) 1,000 mg IVPB Q6H PRN PRN Reason: PAIN Last Admin: 04/06/18 14:51 Dose: 1,000 mg Amino Acids (Prosource No Carb Liquid Pkt) 30 ml PO BID JUDY Last Admin: 04/11/18 21:00 Dose: 30 ml Apixaban (Eliquis -) 5 mg PO BID [facility] Last Admin: 04/11/18 21:00 Dose: 5 mg Artificial Tears (Artificial Tears) 1 drop OU BID PRN PRN Reason: DRY EYES Last Admin: 03/30/18 10:34 Dose: 1 drop Insulin Aspart (Novolog Vial Sliding Scale -) 1 vial SQ [facility]; Protocol Last Admin: 04/12/18 06:21 Dose: Not Given Melatonin (Melatonin) 5 mg NR HS PRN PRN Reason: INSOMNIA Last Admin: 04/07/18 22:25 Dose: 5 mg Ondansetron HCl (Zofran Injection) 4 mg IVPUSH Q6H PRN PRN Reason: NAUSEA Ranitidine HCl (Zantac Oral Solution -) 150 mg NGT DAILY [facility] Last Admin: 04/11/18 09:09 Dose: 150 mg Saliva Substitute (Mouthkote Solution -) 1 applic MM DAILY [facility] Last Admin: 04/11/18 09:18 Dose: 1 applic - Objective Vital Signs: Vital Signs Temperature 98.7 F 04/12/18 06:00 Pulse Rate 96 H 04/12/18 06:00 Respiratory Rate 20 04/12/18 06:00 Blood Pressure 113/61 04/12/18 06:00 O2 Sat by Pulse Oximetry (%) 97 04/11/18 21:00 Constitutional: Yes: No Distress, Calm, Thin Cardiovascular: Yes: Regular Rate and Rhythm (soft intensity), S1, S2. No: Gallop, Murmur Respiratory: Yes: Regular, CTA Bilaterally (anteriorly. decr intensity). No: Accessory Muscle Use, Rales, Wheezes Extremities: No: Cold Edema: No Neurological: Yes: Alert. No: Seizure Psychiatric: No: Agitated Labs: CBC, BMP 04/12/18 06:15 04/12/18 06:15 INR, PTT INR 1.29 (0.82-1.09) H 04/06/18 05:20 Assessment/Plan tele: sinus tach, no fib ecg: sr, nl intervals, no ischemic changes head ct: no acute pathology echo 02/2018: nl lv/rv, mild mr/tr/ar RUE u/s: nonocclusive thrombus in Rt int jugular vein. a/p: 82 m hx gerd, bph, here with abd pain/sepsis - found to have sbo, now s/p OR hospital course c/b new afib. septic shock/sbo/cholecystitis/asp pna: -s/p ex-lap/segmental terminal ileum resection/primary anastamosis 03/13 -Suspected Acalculus Cholecystitis s/p percutaneous cholecystostomy 03/20 -asp pna -now extubated, off pressors. bp stable. abx per ID. -s/p Peg -receiving IV lasix prn per CXR appearing congested, last needed 03/31. new pafib --> conversion to sr: -new onset here. rate controlled w/o meds. 03/25 converted to sr-->remains in sinus -echo unremarkable -chadsvasc warrants ac. continue eliquis. -sinus tach, no AF on tele --deferring AVN blockers (low end BP, AF previously controlled without meds) sinus tach: -? agitation, ? ongoing deconditioning -improving on its own -no signs of active underlying systemic dz causing this--observe clinically and defer AVN blockers RUE DVT - AC as above.
[2018-04-12] MEDS: RANITIDINE HCL 150 MG/10 ML UNIT-DOSE NGT SCH (09:07)
--- NOTE | 2018-04-12 09:50 | PN ---
Progress Note (short form) - Note Progress Note: PULM/CCM Pt seen and examined in the ICU -cont to improve -working with PT in for Tele bed Vital Signs Temp 98.7 F 04/12/18 06:00 Pulse 96 H 04/12/18 08:00 Resp 20 04/12/18 08:00 BP 127/59 04/12/18 08:00 Pulse Ox 97 04/12/18 09:00 Intake & Output 04/11/18 04/11/18 04/12/18 11:59 23:59 11:59 Intake Total 560 1170 560 Output Total 40 370 60 Balance 520 800 500 Weight 61.405 kg 61.32 kg Intake: Tube Feeding 420 720 420 Tube Irrigant 140 450 140 Output: Drainage 40 50 60 Right Upper Abdomen 40 50 60 Urine 320 Void 320 Other: Voiding Method Incontinent Incontinent Incontinent # Unmeasured Voids Void 3 3 4 Weight Measurement Method Built in Bedscale Built in Bedscale Active Medications Acetaminophen (Tylenol Oral Solution -) 650 mg PO Q6H PRN PRN Reason: FEVER Last Admin: 04/10/18 21:44 Dose: 650 mg Acetaminophen (Ofirmev Injection -) 1,000 mg IVPB Q6H PRN PRN Reason: PAIN Last Admin: 04/06/18 14:51 Dose: 1,000 mg Amino Acids (Prosource No Carb Liquid Pkt) 30 ml PO BID [facility] Last Admin: 04/12/18 09:05 Dose: Not Given Apixaban (Eliquis -) 5 mg PO BID [facility] Last Admin: 04/12/18 09:04 Dose: 5 mg Artificial Tears (Artificial Tears) 1 drop OU BID PRN PRN Reason: DRY EYES Last Admin: 03/30/18 10:34 Dose: 1 drop Insulin Aspart (Novolog Vial Sliding Scale -) 1 vial SQ ACHS [facility]; Protocol Last Admin: 04/12/18 06:21 Dose: Not Given Melatonin (Melatonin) 5 mg NR HS PRN PRN Reason: INSOMNIA Last Admin: 04/07/18 22:25 Dose: 5 mg Ondansetron HCl (Zofran Injection) 4 mg IVPUSH Q6H PRN PRN Reason: NAUSEA Ranitidine HCl (Zantac Oral Solution -) 150 mg NGT DAILY [facility] Last Admin: 04/12/18 09:07 Dose: 150 mg Saliva Substitute (Mouthkote Solution -) 1 applic MM DAILY [facility] Last Admin: 04/12/18 09:04 Dose: 1 applic General: elderly man in bed, awake and alert w/o distress HEENT: PERRL CV: sinus tachycardia Pulm: CTA Abd: SNTND, slim tube w/ bilious drainage, PEG site c/d/i Ext: WWP no edema Neuro: AOx3 CBCD WBC 13.9 K/mm3 (4.0-10.0) H 04/12/18 06:15 RBC 3.94 M/mm3 (4.00-5.60) L 04/12/18 06:15 Hgb 11.7 GM/dL (11.7-16.9) 04/12/18 06:15 Hct 35.2 % (35.4-49) L 04/12/18 06:15 MCV 89.4 fl (80-96) 04/12/18 06:15 MCHC 33.4 g/dl (32.0-35.9) 04/12/18 06:15 RDW 14.9 % (11.9-15.9) 04/12/18 06:15 Plt Count 367 K/MM3 (134-434) 04/12/18 06:15 MPV 8.6 fl (7.5-11.1) 04/12/18 06:15 CMP Sodium 146 mmol/L (136-145) H 04/12/18 06:15 Potassium 4.0 mmol/L (3.5-5.1) 04/12/18 06:15 Chloride 111 mmol/L (98-107) H 04/12/18 06:15 Carbon Dioxide 26 mmol/L (21-32) 04/12/18 06:15 Anion Gap 9 (8-16) 04/12/18 06:15 BUN 30 mg/dL (7-18) H 04/12/18 06:15 Creatinine 0.5 mg/dL (0.7-1.3) L 04/12/18 06:15 Creat Clearance w eGFR > 60 (>60) 04/12/18 06:15 Random Glucose 107 mg/dL (74-106) H 04/12/18 06:15 Calcium 9.2 mg/dL (8.5-10.1) 04/12/18 06:15 Total Bilirubin 0.8 mg/dL (0.2-1.0) D 04/12/18 06:15 AST 38 U/L (15-37) H D 04/12/18 06:15 ALT 88 U/L (12-78) H D 04/12/18 06:15 Alkaline Phosphatase 210 U/L (45-117) H 04/12/18 06:15 Total Protein 6.3 g/dl (6.4-8.2) L 04/12/18 06:15 Albumin 1.8 g/dl (3.4-5.0) L 04/12/18 06:15 CARDIAC ENZYMES Creatine Kinase 327 IU/L (39-308) H 03/19/18 20:09 Troponin I 0.03 ng/ml (0.00-0.05) D 03/19/18 20:09 ASSESSMENT AND PLAN: Acute Hypoxic Respiratory Failure improving no on RA Pneumonia treated ARDS resolving Incarcerated Inguinal Hernia s/p ex-lap/segmental terminal ileum resection/primary anastamosis 03/13 r/o Acalculus Cholecystitis s/p percutaneous cholecystostomy Septic Shock resolved Acute Kidney Injury improved Lactic Acidosis resolved New onset Paroxysmal Atrial Fibrillation Diverticulosis BPH Critical Illness Polyneuropathy - Arora-culture for fever > 101, f/u cultures from 04/10, low threshold to restart abx - continue anticoagulation - Follow LFTs - monitor urine output, creatinine - O2 to keep SpO2 >90% - enteral feeds via PEG - rehab/PT - DVT/GI prophylaxis stable for [facility] [id number]
--- NOTE | 2018-04-12 12:34 | PN ---
Progress Note, Physician History of Present Illness: looking much better had a bm still very weak sitting in the chair - Current Medication List Current Medications: Active Medications Acetaminophen (Tylenol Oral Solution -) 650 mg PO Q6H PRN PRN Reason: FEVER Last Admin: 04/10/18 21:44 Dose: 650 mg Acetaminophen (Ofirmev Injection -) 1,000 mg IVPB Q6H PRN PRN Reason: PAIN Last Admin: 04/06/18 14:51 Dose: 1,000 mg Amino Acids (Prosource No Carb Liquid Pkt) 30 ml PO BID [facility] Last Admin: 04/12/18 09:05 Dose: Not Given Apixaban (Eliquis -) 5 mg PO BID [facility] Last Admin: 04/12/18 09:04 Dose: 5 mg Artificial Tears (Artificial Tears) 1 drop OU BID PRN PRN Reason: DRY EYES Last Admin: 03/30/18 10:34 Dose: 1 drop Insulin Aspart (Novolog Vial Sliding Scale -) 1 vial SQ [facility]; Protocol Last Admin: 04/12/18 11:18 Dose: 2 units Melatonin (Melatonin) 5 mg NR HS PRN PRN Reason: INSOMNIA Last Admin: 04/07/18 22:25 Dose: 5 mg Ondansetron HCl (Zofran Injection) 4 mg IVPUSH Q6H PRN PRN Reason: NAUSEA Ranitidine HCl (Zantac Oral Solution -) 150 mg NGT DAILY [facility] Last Admin: 04/12/18 09:07 Dose: 150 mg Saliva Substitute (Mouthkote Solution -) 1 applic MM DAILY [facility] Last Admin: 04/12/18 09:04 Dose: 1 applic - Objective Vital Signs: Vital Signs Temperature 98.8 F 04/12/18 10:00 Pulse Rate 100 H 04/12/18 12:00 Respiratory Rate 20 04/12/18 12:00 Blood Pressure 117/60 04/12/18 12:00 O2 Sat by Pulse Oximetry (%) 97 04/12/18 10:00 Constitutional: Yes: No Distress, Calm Cardiovascular: Yes: Regular Rate and Rhythm Respiratory: Yes: Regular, Poor Air Entry, Other Gastrointestinal: Yes: Normal Bowel Sounds, Soft, Other (peg in place) Musculoskeletal: Yes: WNL Extremities: Yes: WNL Neurological: Yes: Alert, Oriented Psychiatric: Yes: Alert, Oriented Labs: CBC, BMP 04/12/18 06:15 04/12/18 06:15 INR, PTT INR 1.29 (0.82-1.09) H 04/06/18 05:20 Assessment/Plan Problem List - Problems (1) Strangulated inguinal hernia Pulmonary evaluation - weaning today? GI Evaluation - Tbili 3.5, 3.6 BP goal MAP 65-70, has a stapled small bowel anastomosis avoid lwo flow states will follow Code(s): K40.30 - UNIL INGUINAL HERNIA, W OBST, W/O GANGR, NOT SPCF RECUR (2) Incarcerated left inguinal hernia Code(s): K40.30 - UNIL INGUINAL HERNIA, W OBST, W/O GANGR, NOT SPCF RECUR (3) BPH (benign prostatic hyperplasia) Code(s): N40.0 - BENIGN PROSTATIC HYPERPLASIA WITHOUT LOWER URINRY TRACT SYMP Qualifiers: Lower urinary tract symptom presence: symptoms present Lower urinary tract symptom detail: urinary frequency Qualified Code(s): N40.1 - Benign prostatic hyperplasia with lower urinary tract symptoms; R35.0 - Frequency of micturition ; R35.0 - Frequency of micturition (4) DDD (degenerative disc disease), cervical Code(s): M50.30 - OTHER CERVICAL DISC DEGENERATION, UNSP CERVICAL REGION (5) SBO (small bowel obstruction) Code(s): K56.609 - UNSP INTESTNL OBST, UNSP TO PARTIAL VERSUS COMPLETE OBST (6) Aspiration pneumonia of both lower lobes due to gastric secretions Code(s): J69.0 - PNEUMONITIS DUE TO INHALATION OF FOOD AND VOMIT r/o acalculus choley wbc trending down plan continue monitoring off of abx watch for any fevers monitor wbc close watch chest pt rest as per icu xray labs noted patient improving nutrition peg tube feeding cc 40 min
--- NOTE | 2018-04-12 17:40 | PN ---
Progress Note (short form) - Note Progress Note: Subjective: no fever or chills . no abd pain. cont to feel better Objective: Vital Signs: Last Vital Signs Temp Pulse Resp BP Pulse Ox 99.2 F 104 H 18 118/68 97 04/12/18 16:00 04/12/18 16:00 04/12/18 16:00 04/12/18 16:00 04/12/18 10:00 Laboratory Results - last 24 hr 04/08/18 04/11/18 04/11/18 17:02 14:08 16:51 WBC RBC Hgb Hct MCV MCH MCHC RDW Plt Count MPV Sodium Potassium Chloride Carbon Dioxide Anion Gap BUN Creatinine Creat Clearance w eGFR POC Glucometer 174.02375 220.41610 [phone] Random Glucose Calcium Phosphorus Magnesium Total Bilirubin Direct Bilirubin AST ALT Alkaline Phosphatase Total Protein Albumin 04/11/18 04/12/18 04/12/18 22:13 06:12 06:15 WBC 13.9 H RBC 3.94 L Hgb 11.7 Hct 35.2 L MCV 89.4 MCH 29.8 MCHC 33.4 RDW 14.9 Plt Count 367 MPV 8.6 Sodium Potassium Chloride Carbon Dioxide Anion Gap BUN Creatinine Creat Clearance w eGFR POC Glucometer [phone] Random Glucose Calcium Phosphorus Magnesium Total Bilirubin Direct Bilirubin AST ALT Alkaline Phosphatase Total Protein Albumin 04/12/18 06:15 WBC RBC Hgb Hct MCV MCH MCHC RDW Plt Count MPV Sodium 146 H Potassium 4.0 Chloride 111 H Carbon Dioxide 26 Anion Gap 9 BUN 30 H Creatinine 0.5 L Creat Clearance w eGFR > 60 POC Glucometer Random Glucose 107 H Calcium 9.2 Phosphorus 3.5 Magnesium 1.9 Total Bilirubin 0.8 D Direct Bilirubin 0.6 H AST 38 H D ALT 88 H D Alkaline Phosphatase 210 H Total Protein 6.3 L Albumin 1.8 L Physical Exam: Awake.stronger voice , moves all extremities. CV: RRR. Lungs; decreased breath sounds at bases Abd: + BS. Mid line surgical wound. RUQ LEIF drain with brown fluid. Ext: no edema on LE ASSESSMENT AND PLAN: Unfortunate 82 y/o gentleman with h/o DJD, GERD, diverticulosis and other medical problems who presented with abd pain and was found to have SBO with bowel ischemia , and incarcerated hernia and developed acute resp failure and septic shock. 1- Acute hypoxic resp failure. due to severe sepsis and b/l PNA /ARDS. improved . - on NC now 2- Fever : resolved , WBC cont to improve -repeat blood cx on 04/10 NGTD , urine cx neg - off Abx for now . cont to monitor 3- Ischemic bowel and incarcerated inguinal hernia : s/p exploratory laparotomy and partial small bowel resection. 4- Possible acalculus cholecystitis : s/p cholecystostomy tube -cont with cholycystostomy tube. 5-New onset A flutter/A fib: now in sinus rhythm. - cont eliquis at 5 BID. - rate controlled 6- R IJ thrombus /DVT: - Eliquis 7- S/P PEG: cont TF 8- ICU neuropathy. improving. Dispo : transfer to tele Visit type - Emergency Visit Emergency Visit: Yes ED Registration Date: 03/12/18 Care time: The patient presented to the Emergency Department on the above date and was hospitalized for further evaluation of their emergent condition. - New Patient This patient is new to me today: No - Critical Care Critical Care patient: No
[2018-04-12] MEDS: MELATONIN 5 MG TABLETS NR PRN (23:09)
[2018-04-13 06:17] LABS: BASO % 0.7 % (0-2.0); EOS % 3.5 % (0-4.5); HEMATOCRIT 34.2 % (35.4-49); HEMOGLOBIN 11.6 GM/dL (11.7-16.9); LYMPH % 20.2 % (8-40); MCH 29.9 pg (25.7-33.7); MCHC 33.8 g/dl (32.0-35.9); MEAN CELL VOLUME 88.5 fl (80-96); MEAN PLT VOLUME 8.6 fl (7.5-11.1); MONO % 7.5 % (3.8-10.2); NEUT % 68.1 % (42.8-82.8); PLATELET COUNT 367 K/MM3 (134-434); RBC 3.86 M/mm3 (4.00-5.60); RDW 14.8 % (11.9-15.9); WHITE BLOOD COUNT 11.6 K/mm3 (4.0-10.0)
[2018-04-13] MEDS: INSULIN SLIDING SCALE (NOVOLOG) 1 VIAL SQ SCH ×4 (06:21→21:19)
[2018-04-13] MEDS: BANATROL PLUS POWDER PACKET PO SCH ×3 (06:23→21:20)
[2018-04-13] MEDS: AMINO ACIDS/PROTEIN HYDROLYS 30 ML LIQUID.PKT PO SCH ×2 (10:23→21:20)
[2018-04-13] MEDS: APIXABAN 5 MG TABLET PO SCH ×2 (10:23→21:20)
[2018-04-13] MEDS: RANITIDINE HCL 150 MG/10 ML UNIT-DOSE NGT SCH (10:23)
--- NOTE | 2018-04-13 10:29 | PN ---
Progress Note, Physician History of Present Illness: pulmonary alert,no distress,-sob,-cough,-cp - Current Medication List Current Medications: Active Medications Acetaminophen (Tylenol Oral Solution -) 650 mg PO Q6H PRN PRN Reason: FEVER Last Admin: 04/10/18 21:44 Dose: 650 mg Acetaminophen (Ofirmev Injection -) 1,000 mg IVPB Q6H PRN PRN Reason: PAIN Last Admin: 04/06/18 14:51 Dose: 1,000 mg Amino Acids (Prosource No Carb Liquid Pkt) 30 ml PO BID [facility] Last Admin: 04/13/18 10:23 Dose: 30 ml Apixaban (Eliquis -) 5 mg PO BID [facility] Last Admin: 04/13/18 10:23 Dose: 5 mg Artificial Tears (Artificial Tears) 1 drop OU BID PRN PRN Reason: DRY EYES Last Admin: 03/30/18 10:34 Dose: 1 drop Insulin Aspart (Novolog Vial Sliding Scale -) 1 vial SQ [facility]; Protocol Last Admin: 04/13/18 06:21 Dose: Not Given Melatonin (Melatonin) 5 mg NR HS PRN PRN Reason: INSOMNIA Last Admin: 04/12/18 23:09 Dose: 5 mg Ondansetron HCl (Zofran Injection) 4 mg IVPUSH Q6H PRN PRN Reason: NAUSEA Ranitidine HCl (Zantac Oral Solution -) 150 mg NGT DAILY [facility] Last Admin: 04/13/18 10:23 Dose: 150 mg Saliva Substitute (Mouthkote Solution -) 1 applic MM DAILY [facility] Last Admin: 04/12/18 09:04 Dose: 1 applic - Objective Vital Signs: Vital Signs Temperature 98.2 F 04/13/18 05:00 Pulse Rate 98 H 04/13/18 05:00 Respiratory Rate 20 04/13/18 05:00 Blood Pressure 96/63 04/13/18 05:00 O2 Sat by Pulse Oximetry (%) 98 04/12/18 21:00 Constitutional: Yes: Well Nourished, Calm Eyes: Yes: WNL HENT: Yes: WNL Neck: Yes: WNL Cardiovascular: Yes: Pulse Irregular, S1, S2 Respiratory: Yes: Rales (bibasilar crackles) Gastrointestinal: Yes: Normal Bowel Sounds, Soft Extremities: Yes: WNL Edema: No Labs: CBC, BMP 04/13/18 05:33 04/13/18 05:33 INR, PTT INR 1.29 (0.82-1.09) H 04/06/18 05:20 Problem List - Problems (1) Afib Code(s): I48.91 - UNSPECIFIED ATRIAL FIBRILLATION (2) Dysphagia Code(s): R13.10 - DYSPHAGIA, UNSPECIFIED Qualifiers: Dysphagia type: unspecified Qualified Code(s): R13.10 - Dysphagia, unspecified (3) Aspiration pneumonia of both lower lobes due to gastric secretions Code(s): J69.0 - PNEUMONITIS DUE TO INHALATION OF FOOD AND VOMIT (4) BPH (benign prostatic hyperplasia) Code(s): N40.0 - BENIGN PROSTATIC HYPERPLASIA WITHOUT LOWER URINRY TRACT SYMP Qualifiers: Lower urinary tract symptom presence: symptoms present Lower urinary tract symptom detail: urinary frequency Qualified Code(s): N40.1 - Benign prostatic hyperplasia with lower urinary tract symptoms; R35.0 - Frequency of micturition ; R35.0 - Frequency of micturition (5) SBO (small bowel obstruction) Code(s): K56.609 - UNSP INTESTNL OBST, UNSP TO PARTIAL VERSUS COMPLETE OBST Assessment/Plan ASSESSMENT AND PLAN: Acute Hypoxic Respiratory Failure improved on RA Pneumonia treated ARDS resolving Incarcerated Inguinal Hernia s/p ex-lap/segmental terminal ileum resection/primary anastamosis 03/13 r/o Acalculus Cholecystitis s/p percutaneous cholecystostomy Septic Shock resolved Acute Kidney Injury improved Lactic Acidosis resolved New onset Paroxysmal Atrial Fibrillation Diverticulosis BPH Critical Illness Polyneuropathy - anticoagulation - Follow LFTs - monitor urine output, creatinine - O2 to keep SpO2 >90% - enteral feeds via PEG - rehab/PT - DVT/GI prophylaxis DR COLE
--- NOTE | 2018-04-13 10:40 | PN ---
Progress Note, Physician History of Present Illness: Coverage for Gitig, Ginelli. Remains in SR and in edy vest, no complaints. - Current Medication List Current Medications: Active Medications Acetaminophen (Tylenol Oral Solution -) 650 mg PO Q6H PRN PRN Reason: FEVER Last Admin: 04/10/18 21:44 Dose: 650 mg Acetaminophen (Ofirmev Injection -) 1,000 mg IVPB Q6H PRN PRN Reason: PAIN Last Admin: 04/06/18 14:51 Dose: 1,000 mg Amino Acids (Prosource No Carb Liquid Pkt) 30 ml PO BID [facility] Last Admin: 04/13/18 10:23 Dose: 30 ml Apixaban (Eliquis -) 5 mg PO BID [facility] Last Admin: 04/13/18 10:23 Dose: 5 mg Artificial Tears (Artificial Tears) 1 drop OU BID PRN PRN Reason: DRY EYES Last Admin: 03/30/18 10:34 Dose: 1 drop Insulin Aspart (Novolog Vial Sliding Scale -) 1 vial SQ [facility]; Protocol Last Admin: 04/13/18 06:21 Dose: Not Given Melatonin (Melatonin) 5 mg NR HS PRN PRN Reason: INSOMNIA Last Admin: 04/12/18 23:09 Dose: 5 mg Ondansetron HCl (Zofran Injection) 4 mg IVPUSH Q6H PRN PRN Reason: NAUSEA Ranitidine HCl (Zantac Oral Solution -) 150 mg NGT DAILY [facility] Last Admin: 04/13/18 10:23 Dose: 150 mg Saliva Substitute (Mouthkote Solution -) 1 applic MM DAILY [facility] Last Admin: 04/12/18 09:04 Dose: 1 applic - Objective Vital Signs: Vital Signs Temperature 98.2 F 04/13/18 05:00 Pulse Rate 98 H 04/13/18 05:00 Respiratory Rate 20 04/13/18 05:00 Blood Pressure 96/63 04/13/18 05:00 O2 Sat by Pulse Oximetry (%) 98 04/12/18 21:00 Constitutional: Yes: No Distress, Calm, Thin Neck: Yes: Supple Cardiovascular: Yes: Regular Rate and Rhythm Respiratory: Yes: Regular, Diminished Gastrointestinal: Yes: Normal Bowel Sounds, Soft, Other (G-tube in place) Edema: No Labs: CBC, BMP 04/13/18 05:33 04/13/18 05:33 INR, PTT INR 1.29 (0.82-1.09) H 04/06/18 05:20 - ....Imaging EKG: Report Reviewed (Tele: SR) Problem List - Problems (1) Afib Code(s): I48.91 - UNSPECIFIED ATRIAL FIBRILLATION Qualifiers: Atrial fibrillation type: paroxysmal Qualified Code(s): I48.0 - Paroxysmal atrial fibrillation (2) Aspiration pneumonia of both lower lobes due to gastric secretions Code(s): J69.0 - PNEUMONITIS DUE TO INHALATION OF FOOD AND VOMIT (3) Incarcerated left inguinal hernia Code(s): K40.30 - UNIL INGUINAL HERNIA, W OBST, W/O GANGR, NOT SPCF RECUR (4) SBO (small bowel obstruction) Code(s): K56.609 - UNSP INTESTNL OBST, UNSP TO PARTIAL VERSUS COMPLETE OBST Assessment/Plan tele: sinus tach, no afib ecg: sr, nl intervals, no ischemic changes head ct: no acute pathology echo 02/2018: nl lv/rv, mild mr/tr/ar RUE u/s: nonocclusive thrombus in Rt int jugular vein. 1. Post Acute Hypoxic Respiratory Failure, PNA, ARDS resolved 2. Incarcerated Inguinal Hernia s/p ex-lap/segmental terminal ileum resection/ primary anastamosis 03/13 3. r/o Acalculus Cholecystitis s/p percutaneous cholecystostomy 4. Septic Shock resolved 5. Acute Kidney Injury improved 6. Lactic Acidosis resolved 7. Paroxysmal Atrial Fibrillation->SR 8. Diverticulosis 9. BPH 10. Critical Illness Polyneuropathy P1. Continue Eliquis 5 bid, observing off AVN blocking agents 2. O2 to keep SpO2 >90% 3. Enteral feeds via PEG 4. rehab/PT 5. DVT/GI prophylaxis, OOB to chair
--- NOTE | 2018-04-13 12:13 | PN ---
Progress Note, Physician Chief Complaint: SBO History of Present Illness: 82 yo male PMH BPH, degernerative disc disease (cervical), diverticulosis, hemorrhoids presented to the ED with abdominal pain and vomiting for on day. He reports that he was weight training yesterday and developed some groin pain. 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 gradually more responsive, intermittent clinical improvement. - Current Medication List Current Medications: Active Medications Acetaminophen (Tylenol Oral Solution -) 650 mg PO Q6H PRN PRN Reason: FEVER Last Admin: 04/10/18 21:44 Dose: 650 mg Acetaminophen (Ofirmev Injection -) 1,000 mg IVPB Q6H PRN PRN Reason: PAIN Last Admin: 04/06/18 14:51 Dose: 1,000 mg Amino Acids (Prosource No Carb Liquid Pkt) 30 ml PO BID [facility] Last Admin: 04/13/18 10:23 Dose: 30 ml Apixaban (Eliquis -) 5 mg PO BID [facility] Last Admin: 04/13/18 10:23 Dose: 5 mg Artificial Tears (Artificial Tears) 1 drop OU BID PRN PRN Reason: DRY EYES Last Admin: 03/30/18 10:34 Dose: 1 drop Insulin Aspart (Novolog Vial Sliding Scale -) 1 vial SQ [facility]; Protocol Last Admin: 04/13/18 06:21 Dose: Not Given Melatonin (Melatonin) 5 mg NR HS PRN PRN Reason: INSOMNIA Last Admin: 04/12/18 23:09 Dose: 5 mg Ondansetron HCl (Zofran Injection) 4 mg IVPUSH Q6H PRN PRN Reason: NAUSEA Ranitidine HCl (Zantac Oral Solution -) 150 mg NGT DAILY [facility] Last Admin: 04/13/18 10:23 Dose: 150 mg Saliva Substitute (Mouthkote Solution -) 1 applic MM DAILY [facility] Last Admin: 04/12/18 09:04 Dose: 1 applic - Objective Vital Signs: Vital Signs Temperature 98.2 F 04/13/18 05:00 Pulse Rate 98 H 04/13/18 05:00 Respiratory Rate 20 04/13/18 05:00 Blood Pressure 96/63 04/13/18 05:00 O2 Sat by Pulse Oximetry (%) 98 04/12/18 21:00 Vital Signs Period Temp Pulse Resp BP Sys/Ceballos Pulse Ox Last 24 Hr 97.6 F-99.8 F 72-104 18-20 91-140/53-83 98 Constitutional: Yes: No Distress, Calm, Thin Eyes: Yes: Conjunctiva Clear, EOM Intact HENT: Yes: Atraumatic, Normocephalic Neck: Yes: Supple, Trachea Midline Cardiovascular: Yes: Regular Rate and Rhythm, S1, S2 Respiratory: Yes: Regular, CTA Bilaterally, On Nasal O2 Gastrointestinal: Yes: Normal Bowel Sounds, Soft. No: Tenderness ...Rectal Exam: Yes: Deferred Genitourinary: No: CVA Tenderness - Left, CVA Tenderness - Right Edema: Yes Peripheral Pulses WNL: No Labs: CBC, BMP 04/13/18 05:33 04/13/18 05:33 INR, PTT INR 1.29 (0.82-1.09) H 04/06/18 05:20 Problem List - Problems (1) Strangulated inguinal hernia Assessment/Plan: 82yo male MMP relatively healthy with SBO abdominal pain non reducible LIH, unclear transition point and no clear bowel ischemia identified. Bibasilar pulmonary consolidation and hoarsness may be a sequela of an aspiration. POD#26 s/p Exploratory Laparotomy, segmental ressection of SB and primary stapled anastomosis for strangulated RIH. low grade fevers persists. Patient has soft bowel movements. Extubated on high flow NC. S/p percutaneous cholecystostomy and gastrostomy. ICU management Antibiotics per ID Feed to goal HEIDE Cholecystostomy management per IR Physical Therapy followup GI and DVT prophylaxsis D/C planning to [facility] acute care facility to be determined will follow peripherally Code(s): K40.30 - UNIL INGUINAL HERNIA, W OBST, W/O GANGR, NOT SPCF RECUR (2) Incarcerated left inguinal hernia Code(s): K40.30 - UNIL INGUINAL HERNIA, W OBST, W/O GANGR, NOT SPCF RECUR (3) BPH (benign prostatic hyperplasia) Code(s): N40.0 - BENIGN PROSTATIC HYPERPLASIA WITHOUT LOWER URINRY TRACT SYMP Qualifiers: Lower urinary tract symptom presence: symptoms present Lower urinary tract symptom detail: urinary frequency Qualified Code(s): N40.1 - Benign prostatic hyperplasia with lower urinary tract symptoms; R35.0 - Frequency of micturition ; R35.0 - Frequency of micturition (4) DDD (degenerative disc disease), cervical Code(s): M50.30 - OTHER CERVICAL DISC DEGENERATION, UNSP CERVICAL REGION (5) SBO (small bowel obstruction) Code(s): K56.609 - UNSP INTESTNL OBST, UNSP TO PARTIAL VERSUS COMPLETE OBST (6) Aspiration pneumonia of both lower lobes due to gastric secretions Code(s): J69.0 - PNEUMONITIS DUE TO INHALATION OF FOOD AND VOMIT
[2018-04-13] MEDS: LYTES/YERBA SANTA 240 ML BOTTLE MM SCH (12:30)
--- NOTE | 2018-04-13 12:52 | PN ---
Progress Note, Physician History of Present Illness: looking much better no new issues breathing better - Current Medication List Current Medications: Active Medications Acetaminophen (Tylenol Oral Solution -) 650 mg PO Q6H PRN PRN Reason: FEVER Last Admin: 04/10/18 21:44 Dose: 650 mg Acetaminophen (Ofirmev Injection -) 1,000 mg IVPB Q6H PRN PRN Reason: PAIN Last Admin: 04/06/18 14:51 Dose: 1,000 mg Amino Acids (Prosource No Carb Liquid Pkt) 30 ml PO BID [facility] Last Admin: 04/13/18 10:23 Dose: 30 ml Apixaban (Eliquis -) 5 mg PO BID [facility] Last Admin: 04/13/18 10:23 Dose: 5 mg Artificial Tears (Artificial Tears) 1 drop OU BID PRN PRN Reason: DRY EYES Last Admin: 03/30/18 10:34 Dose: 1 drop Insulin Aspart (Novolog Vial Sliding Scale -) 1 vial SQ [facility]; Protocol Last Admin: 04/13/18 12:30 Dose: Not Given Melatonin (Melatonin) 5 mg NR HS PRN PRN Reason: INSOMNIA Last Admin: 04/12/18 23:09 Dose: 5 mg Ondansetron HCl (Zofran Injection) 4 mg IVPUSH Q6H PRN PRN Reason: NAUSEA Ranitidine HCl (Zantac Oral Solution -) 150 mg NGT DAILY [facility] Last Admin: 04/13/18 10:23 Dose: 150 mg Saliva Substitute (Mouthkote Solution -) 1 applic MM DAILY [facility] Last Admin: 04/13/18 12:30 Dose: Not Given - Objective Vital Signs: Vital Signs Temperature 97.6 F 04/13/18 09:00 Pulse Rate 87 04/13/18 09:00 Respiratory Rate 20 04/13/18 09:00 Blood Pressure 109/59 04/13/18 09:00 O2 Sat by Pulse Oximetry (%) 99 04/13/18 09:00 Constitutional: Yes: No Distress, Calm Neck: Yes: Supple Cardiovascular: Yes: Pulse Irregular, S1 Respiratory: Yes: Regular, Poor Air Entry Gastrointestinal: Yes: Normal Bowel Sounds, Soft, Other (peg in place) Musculoskeletal: Yes: WNL Extremities: Yes: WNL Neurological: Yes: Alert, Oriented Psychiatric: Yes: Alert, Oriented Labs: CBC, BMP 04/13/18 05:33 04/13/18 05:33 INR, PTT INR 1.29 (0.82-1.09) H 04/06/18 05:20 Assessment/Plan Problem List - Problems (1) Strangulated inguinal hernia Pulmonary evaluation - weaning today? GI Evaluation - Tbili 3.5, 3.6 BP goal MAP 65-70, has a stapled small bowel anastomosis avoid lwo flow states will follow Code(s): K40.30 - UNIL INGUINAL HERNIA, W OBST, W/O GANGR, NOT SPCF RECUR (2) Incarcerated left inguinal hernia Code(s): K40.30 - UNIL INGUINAL HERNIA, W OBST, W/O GANGR, NOT SPCF RECUR (3) BPH (benign prostatic hyperplasia) Code(s): N40.0 - BENIGN PROSTATIC HYPERPLASIA WITHOUT LOWER URINRY TRACT SYMP Qualifiers: Lower urinary tract symptom presence: symptoms present Lower urinary tract symptom detail: urinary frequency Qualified Code(s): N40.1 - Benign prostatic hyperplasia with lower urinary tract symptoms; R35.0 - Frequency of micturition ; R35.0 - Frequency of micturition (4) DDD (degenerative disc disease), cervical Code(s): M50.30 - OTHER CERVICAL DISC DEGENERATION, UNSP CERVICAL REGION (5) SBO (small bowel obstruction) Code(s): K56.609 - UNSP INTESTNL OBST, UNSP TO PARTIAL VERSUS COMPLETE OBST (6) Aspiration pneumonia of both lower lobes due to gastric secretions Code(s): J69.0 - PNEUMONITIS DUE TO INHALATION OF FOOD AND VOMIT r/o acalculus choley wbc trending down plan stable off of abx continue current mgmt nutrition rest as per the team await for final plan rest as per the team
[2018-04-13] MEDS ORDERED: PT OWN MED DRAWER 7, Y5N ONE ×2 (13:13→21:13)
--- NOTE | 2018-04-13 14:11 | PN ---
Teaching Attending Note Name of Resident: Mukul White ATTENDING PHYSICIAN STATEMENT I saw and evaluated the patient. I reviewed the resident's note and discussed the case with the resident. I agree with the resident's findings and plan as documented. SUBJECTIVE: No fever or chills . No abd pain. no OSB OBJECTIVE: Awake.stronger voice , moves all extremities. CV: RRR. Lungs; decreased breath sounds at bases Abd: + BS. Mid line surgical wound. RUQ LEIF drain with brown fluid. Ext: no edema on LE ASSESSMENT AND PLAN: Unfortunate 82 y/o gentleman with h/o DJD, GERD, diverticulosis and other medical problems who presented with abd pain and was found to have SBO with bowel ischemia , and incarcerated hernia and developed acute resp failure and septic shock. 1- Acute hypoxic resp failure. due to severe sepsis and b/l PNA /ARDS. improved . - on NC now 2- Fever : resolved, WBC cont to improve - off Abx for now. cont to monitor 3- Ischemic bowel and incarcerated inguinal hernia : s/p exploratory laparotomy and partial small bowel resection. 4- Possible acalculus cholecystitis: s/p cholecystostomy tube -cont with cholycystostomy tube. 5-New onset A flutter/A fib: now in sinus rhythm. - cont eliquis at 5 BID. - rate controlled 6- R IJ thrombus /DVT: - Eliquis 7- S/P PEG: cont TF 8- ICU neuropathy. improving. Dispo :awaiting transfer to rehab
--- NOTE | 2018-04-13 15:28 | PN ---
Progress Note, Physician Chief Complaint: SBO History of Present Illness: 82 yo male PMH BPH, degernerative disc disease (cervical), diverticulosis, hemorrhoids presented to the ED with abdominal pain and vomiting for on day. He reports that he was weight training yesterday and developed some groin pain. 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 gradually more responsive, intermittent clinical improvement. - Current Medication List Current Medications: Active Medications Acetaminophen (Tylenol Oral Solution -) 650 mg PO Q6H PRN PRN Reason: FEVER Last Admin: 04/10/18 21:44 Dose: 650 mg Acetaminophen (Ofirmev Injection -) 1,000 mg IVPB Q6H PRN PRN Reason: PAIN Last Admin: 04/06/18 14:51 Dose: 1,000 mg Amino Acids (Prosource No Carb Liquid Pkt) 30 ml PO BID [facility] Last Admin: 04/13/18 10:23 Dose: 30 ml Apixaban (Eliquis -) 5 mg PO BID [facility] Last Admin: 04/13/18 10:23 Dose: 5 mg Artificial Tears (Artificial Tears) 1 drop OU BID PRN PRN Reason: DRY EYES Last Admin: 03/30/18 10:34 Dose: 1 drop Insulin Aspart (Novolog Vial Sliding Scale -) 1 vial SQ [facility]; Protocol Last Admin: 04/13/18 12:30 Dose: Not Given Melatonin (Melatonin) 5 mg NR HS PRN PRN Reason: INSOMNIA Last Admin: 04/12/18 23:09 Dose: 5 mg Ondansetron HCl (Zofran Injection) 4 mg IVPUSH Q6H PRN PRN Reason: NAUSEA Ranitidine HCl (Zantac Oral Solution -) 150 mg NGT DAILY [facility] Last Admin: 04/13/18 10:23 Dose: 150 mg Saliva Substitute (Mouthkote Solution -) 1 applic MM DAILY [facility] Last Admin: 04/13/18 12:30 Dose: Not Given - Objective Vital Signs: Vital Signs Temperature 97.7 F 04/13/18 14:00 Pulse Rate 97 H 04/13/18 14:00 Respiratory Rate 20 04/13/18 14:00 Blood Pressure 119/69 04/13/18 14:00 O2 Sat by Pulse Oximetry (%) 99 04/13/18 09:00 Vital Signs Period Temp Pulse Resp BP Sys/Ceballos Pulse Ox Last 24 Hr 97.6 F-99.8 F 72-104 18-20 91-140/53-83 98-99 Labs: CBC, BMP 04/13/18 05:33 04/13/18 05:33 INR, PTT INR 1.29 (0.82-1.09) H 04/06/18 05:20 Problem List - Problems (1) Strangulated inguinal hernia Assessment/Plan: 82yo male MMP relatively healthy with SBO abdominal pain non reducible LIH, unclear transition point and no clear bowel ischemia identified. Bibasilar pulmonary consolidation and hoarsness may be a sequela of an aspiration. POD#26 s/p Exploratory Laparotomy, segmental ressection of SB and primary stapled anastomosis for strangulated RIH. low grade fevers persists. Patient has soft bowel movements. Extubated on high flow NC. S/p percutaneous cholecystostomy and gastrostomy. ICU management Antibiotics per ID Feed to goal HEIDE Cholecystostomy management per IR Physical Therapy followup GI and DVT prophylaxsis D/C planning to [facility] to be determined will follow peripherally Code(s): K40.30 - UNIL INGUINAL HERNIA, W OBST, W/O GANGR, NOT SPCF RECUR (2) Incarcerated left inguinal hernia Code(s): K40.30 - UNIL INGUINAL HERNIA, W OBST, W/O GANGR, NOT SPCF RECUR (3) BPH (benign prostatic hyperplasia) Code(s): N40.0 - BENIGN PROSTATIC HYPERPLASIA WITHOUT LOWER URINRY TRACT SYMP Qualifiers: Lower urinary tract symptom presence: symptoms present Lower urinary tract symptom detail: urinary frequency Qualified Code(s): N40.1 - Benign prostatic hyperplasia with lower urinary tract symptoms; R35.0 - Frequency of micturition ; R35.0 - Frequency of micturition (4) DDD (degenerative disc disease), cervical Code(s): M50.30 - OTHER CERVICAL DISC DEGENERATION, UNSP CERVICAL REGION (5) SBO (small bowel obstruction) Code(s): K56.609 - UNSP INTESTNL OBST, UNSP TO PARTIAL VERSUS COMPLETE OBST (6) Aspiration pneumonia of both lower lobes due to gastric secretions Code(s): J69.0 - PNEUMONITIS DUE TO INHALATION OF FOOD AND VOMIT
[2018-04-13] MEDS ORDERED: INSULIN (NOVOLOG) ASPART 100 UNITS/ML 10ML VIAL ONE (17:07)
--- NOTE | 2018-04-13 20:42 | PN ---
Physical Exam: SUBJECTIVE: No complaints today. Did not sleep too well last night otherwise. Son at bedside. Pt historically has sundowned which required a edy. OBJECTIVE: Vital Signs Period Temp Pulse Resp BP Sys/Ceballos Pulse Ox Last 24 Hr 97.1 F-98.5 F 87-102 20-20 91-131/53-69 98-99 GENERAL: NAD, alert today and oriented, laying in bed HEENT: KITTY, EOMI, no edematous facial structures, MMM Neck: no JVD LUNGS: Aeration of lungs down to the bases. no overt rhonchi or rales . HEART: RRR, S1, S2 without murmur ABDOMEN: Soft, nondistended, nontender, C-tube draining brown fluid NEURO: Strength 5/5 in lower extremities, pt can now move arms 4/5. Voice back to normal EXTREMITIES: 2+ DP pulses, warm, no edema today SKIN: Warm, dry, no rash or lesions currently Laboratory Results - last 24 hr 04/12/18 04/12/18 04/12/18 11:08 17:00 21:17 WBC RBC Hgb Hct MCV MCH MCHC RDW Plt Count MPV Absolute Neuts (auto) Neutrophils % Lymphocytes % Monocytes % Eosinophils % Basophils % Nucleated RBC % Sodium POC Glucometer 184.59202 185.10084 154 04/13/18 04/13/18 04/13/18 05:33 05:33 05:53 WBC 11.6 H RBC 3.86 L Hgb 11.6 L Hct 34.2 L MCV 88.5 MCH 29.9 MCHC 33.8 RDW 14.8 Plt Count 367 MPV 8.6 Absolute Neuts (auto) 7.9 Neutrophils % 68.1 D Lymphocytes % 20.2 D Monocytes % 7.5 Eosinophils % 3.5 D Basophils % 0.7 Nucleated RBC % 0 Sodium 143 POC Glucometer 120 04/13/18 04/13/18 12:01 17:30 WBC RBC Hgb Hct MCV MCH MCHC RDW Plt Count MPV Absolute Neuts (auto) Neutrophils % Lymphocytes % Monocytes % Eosinophils % Basophils % Nucleated RBC % Sodium POC Glucometer 147 195 Active Medications Generic Name Dose Route Start Last Admin Trade Name Freq PRN Reason Stop Dose Admin Acetaminophen 650 mg 03/27/18 13:00 04/10/18 21:44 Tylenol Oral Solution - PO 650 mg Q6H PRN Administration FEVER Acetaminophen 1,000 mg 04/06/18 14:51 04/06/18 14:51 Ofirmev Injection - IVPB 1,000 mg Q6H PRN Administration PAIN Amino Acids 30 ml 04/07/18 22:00 04/13/18 10:23 Prosource No Carb Liquid Pkt PO 30 ml BID JUDY Administration Apixaban 5 mg 04/08/18 11:15 04/13/18 10:23 Eliquis - PO 5 mg BID JUDY Administration Artificial Tears 1 drop 03/24/18 10:59 03/30/18 10:34 Artificial Tears OU 1 drop BID PRN Administration DRY EYES Insulin Aspart 1 vial 03/23/18 11:00 04/13/18 17:30 Novolog Vial Sliding Scale - SQ 2 units ACHS JUDY Administration Protocol Melatonin 5 mg 04/07/18 22:00 04/12/18 23:09 Melatonin NR 5 mg HS PRN Administration INSOMNIA Ondansetron HCl 4 mg 03/13/18 04:30 Zofran Injection IVPUSH Q6H PRN NAUSEA Ranitidine HCl 150 mg 04/03/18 11:45 04/13/18 10:23 Zantac Oral Solution - NGT 150 mg DAILY JUDY Administration Saliva Substitute 1 applic 04/07/18 22:13 04/13/18 12:30 Mouthkote Solution - MM Not Given DAILY [facility] ASSESSMENT/PLAN: 1) Toxic metabolic neuropathy --Continue PT; will require intensive PT for greatest improvement --Speech and swallow re-evaluation today --> MBS ordered --Continues to greatly improve 2) Acute hypoxic respiratory failure --Resolved, extubated; 6 --Continue 3LNC --Aspiration precautions: HOB elevated 3) Septic shock 2/2 to bowel ischemia in addition to aspiration PNA --Resolved --ID on board --Afebrile --WBC 11,000s --Monitor off antibiotics 4) Elevated LFTs --Stable --Discussed with IR and will need to keep C-tube for long duration before pulling 5) Atrial flutter/fib --Cardiology consulted --Eliquis 5mg GT BID --Echo unremarkable FEN: Fluids: Avoid E: No abnormalities Nutrition: Perative and Prosource BID; pending S&S eval PPX: DVT - Eliquis as above GI - Protonix 40mg IVP daily Dispo: [facility] for acute rehab Case discussed with Dr. Mati White, DO - IM PGY-1 Visit type - Emergency Visit Emergency Visit: No - New Patient This patient is new to me today: No - Critical Care Critical Care patient: No
[2018-04-13] MEDS: MELATONIN 5 MG TABLETS NR PRN (22:22)
[2018-04-14 06:19] LABS: HEMATOCRIT 33.3 % (35.4-49); HEMOGLOBIN 11.3 GM/dL (11.7-16.9); MCH 29.9 pg (25.7-33.7); MCHC 33.7 g/dl (32.0-35.9); MEAN CELL VOLUME 88.6 fl (80-96); MEAN PLT VOLUME 8.2 fl (7.5-11.1); PLATELET COUNT 330 K/MM3 (134-434); RBC 3.76 M/mm3 (4.00-5.60); RDW 14.7 % (11.9-15.9); WHITE BLOOD COUNT 10.7 K/mm3 (4.0-10.0)
[2018-04-14] MEDS: INSULIN SLIDING SCALE (NOVOLOG) 1 VIAL SQ SCH ×2 (06:23→12:43)
[2018-04-14] MEDS: BANATROL PLUS POWDER PACKET PO SCH (06:24)
[2018-04-14 06:43] LABS: ANION GAP 8 (8-16); BLOOD UREA NITROGEN 26 mg/dL (7-18); CALCIUM 8.9 mg/dL (8.5-10.1); CHLORIDE 107 mmol/L (98-107); CO2 27 mmol/L (21-32); CREATININE 0.5 mg/dL (0.7-1.3); GLUCOSE,RANDOM 144 mg/dL (74-106); SODIUM 142 mmol/L (136-145)
[2018-04-14 09:34] VITALS: BP 107/60; PULSE 85; TEMP 98.1
--- NOTE | 2018-04-14 10:50 | PN ---
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 Call placed to [facility] to send to EMR. In summary, pt is ready for PO trials, with Speech Pathology. Pt is pending d/c to [facility]/ Suggest f/u by Sp path at [facility] to initiate PO trials with careful monitoring for tolerance.
--- NOTE | 2018-04-14 11:24 | PN ---
Progress Note, Physician Chief Complaint: Events noted. Feels better Clinically improved History of Present Illness: Patient was seen and examined. Awake and alert. Chart was reviewed Denies chest pain, SOB or palpitations - Current Medication List Current Medications: Active Medications Acetaminophen (Tylenol Oral Solution -) 650 mg PO Q6H PRN PRN Reason: FEVER Last Admin: 04/10/18 21:44 Dose: 650 mg Acetaminophen (Ofirmev Injection -) 1,000 mg IVPB Q6H PRN PRN Reason: PAIN Last Admin: 04/06/18 14:51 Dose: 1,000 mg Amino Acids (Prosource No Carb Liquid Pkt) 30 ml PO BID JUDY Last Admin: 04/13/18 21:20 Dose: 30 ml Apixaban (Eliquis -) 5 mg PO BID [facility] Last Admin: 04/13/18 21:20 Dose: 5 mg Artificial Tears (Artificial Tears) 1 drop OU BID PRN PRN Reason: DRY EYES Last Admin: 03/30/18 10:34 Dose: 1 drop Insulin Aspart (Novolog Vial Sliding Scale -) 1 vial SQ ACHS [facility]; Protocol Last Admin: 04/14/18 06:23 Dose: Not Given Melatonin (Melatonin) 5 mg NR HS PRN PRN Reason: INSOMNIA Last Admin: 04/13/18 22:22 Dose: 5 mg Ondansetron HCl (Zofran Injection) 4 mg IVPUSH Q6H PRN PRN Reason: NAUSEA Ranitidine HCl (Zantac Oral Solution -) 150 mg NGT DAILY [facility] Last Admin: 04/13/18 10:23 Dose: 150 mg Saliva Substitute (Mouthkote Solution -) 1 applic MM DAILY [facility] Last Admin: 04/13/18 12:30 Dose: Not Given - Objective Vital Signs: Vital Signs Temperature 98.1 F 04/14/18 09:00 Pulse Rate 85 04/14/18 09:00 Respiratory Rate 20 04/14/18 09:00 Blood Pressure 107/60 04/14/18 09:00 O2 Sat by Pulse Oximetry (%) 98 04/14/18 09:00 HENT: Yes: Atraumatic Neck: Yes: Supple Cardiovascular: Yes: Regular Rate and Rhythm, S1, S2 Respiratory: Yes: CTA Bilaterally Gastrointestinal: Yes: Soft, Other (G tube in place). No: Tenderness Edema: No Labs: CBC, BMP 04/14/18 05:30 04/14/18 05:30 Problem List - Problems (1) Afib Code(s): I48.91 - UNSPECIFIED ATRIAL FIBRILLATION Qualifiers: Atrial fibrillation type: persistent Qualified Code(s): I48.1 - Persistent atrial fibrillation (2) Incarcerated left inguinal hernia Code(s): K40.30 - UNIL INGUINAL HERNIA, W OBST, W/O GANGR, NOT SPCF RECUR (3) Aspiration pneumonia of both lower lobes due to gastric secretions Code(s): J69.0 - PNEUMONITIS DUE TO INHALATION OF FOOD AND VOMIT (4) DDD (degenerative disc disease), cervical Code(s): M50.30 - OTHER CERVICAL DISC DEGENERATION, UNSP CERVICAL REGION Assessment/Plan 1. Post Acute Hypoxic Respiratory Failure, pneumonia and ARDS resolved 2. Incarcerated Inguinal Hernia s/p ex-lap/segmental terminal ileum resection/ primary anastamosis 3. Acalculus Cholecystitis s/p percutaneous cholecystostomy 4. Septic Shock resolved 5. Acute Kidney Injury improved 6. Lactic Acidosis resolved 7. Paroxysmal Atrial Fibrillation currently in sinus rhythm 8. Diverticulosis 9. BPH 10. Critical Illness Polyneuropathy PLAN: 1. Continue Eliquis 5 bid as tolerated 2. O2 to keep SpO2 >90% 3. Enteral feeds via PEG 4. Rehab/PT - SNF placement 5. DVT/GI prophylaxis Further plans are to follow. Drs. Hinds/Darlene to resume care tomorrow Alonso Fuentes MD
[2018-04-14] MEDS: RANITIDINE HCL 150 MG/10 ML UNIT-DOSE NGT SCH (12:42)
[2018-04-14] MEDS: AMINO ACIDS/PROTEIN HYDROLYS 30 ML LIQUID.PKT PO SCH (12:42)
[2018-04-14] MEDS: APIXABAN 5 MG TABLET PO SCH (12:45)
--- NOTE | 2018-04-14 12:59 | PN ---
Progress Note (short form) - Note Progress Note: PULMONARY Doing well. Stood with PT. No shortness of breath. Off oxygen. Vital Signs Period Temp Pulse Resp BP Sys/Ceballos Pulse Ox Last 24 Hr 97.7 F-98.2 F 85-98 20-20 107-155/47-69 98-98 Gen: NAD at rest Heart: RRR Lung: decreased breath sounds at the bases Abd: soft, nontender Ext: no edema CBC, BMP 04/14/18 05:30 04/14/18 05:30 Active Medications Acetaminophen (Tylenol Oral Solution -) 650 mg PO Q6H PRN PRN Reason: FEVER Last Admin: 04/10/18 21:44 Dose: 650 mg Acetaminophen (Ofirmev Injection -) 1,000 mg IVPB Q6H PRN PRN Reason: PAIN Last Admin: 04/06/18 14:51 Dose: 1,000 mg Amino Acids (Prosource No Carb Liquid Pkt) 30 ml PO BID [facility] Last Admin: 04/14/18 12:42 Dose: 30 ml Apixaban (Eliquis -) 5 mg PO BID [facility] Last Admin: 04/14/18 12:45 Dose: 5 mg Artificial Tears (Artificial Tears) 1 drop OU BID PRN PRN Reason: DRY EYES Last Admin: 03/30/18 10:34 Dose: 1 drop Insulin Aspart (Novolog Vial Sliding Scale -) 1 vial SQ ACHS [facility]; Protocol Last Admin: 04/14/18 12:43 Dose: 2 units Melatonin (Melatonin) 5 mg NR HS PRN PRN Reason: INSOMNIA Last Admin: 04/13/18 22:22 Dose: 5 mg Ondansetron HCl (Zofran Injection) 4 mg IVPUSH Q6H PRN PRN Reason: NAUSEA Ranitidine HCl (Zantac Oral Solution -) 150 mg NGT DAILY [facility] Last Admin: 04/14/18 12:42 Dose: 150 mg Saliva Substitute (Mouthkote Solution -) 1 applic MM DAILY [facility] Last Admin: 04/13/18 12:30 Dose: Not Given A/P Acute Hypoxic Respiratory Failure resolved Pneumonia - ?Aspiration treated ARDS resolved Incarcerated Inguinal Hernia s/p ex-lap/segmental terminal ileum resection/primary anastamosis 03/13 r/o Acalculus Cholecystitis s/p percutaneous cholecystostomy Septic Shock resolving Acute Kidney Injury improving Lactic Acidosis resolved New onset Paroxysmal Atrial Fibrillation Diverticulosis BPH - completed antibiotics - rate controlled - continue anticoagulation - aspiration precautions - enteral feeds - rehab/PT - DVT/GI prophylaxis - d/c planning
--- NOTE | 2018-04-14 15:43 | PN ---
Teaching Attending Note Name of Resident: Mukul White ATTENDING PHYSICIAN STATEMENT I saw and evaluated the patient. I reviewed the resident's note and discussed the case with the resident. I agree with the resident's findings and plan as documented. SUBJECTIVE: no pain , no SOB. OBJECTIVE: Awake. pleasant , smiling CV: RRR. Lungs; CTAB Abd: + BS. Mid line surgical wound. RUQ LEIF drain with brown fluid. Ext: no edema on LE ASSESSMENT AND PLAN: Unfortunate 82 y/o gentleman with h/o DJD, GERD, diverticulosis and other medical problems who presented with abd pain and was found to have SBO with bowel ischemia , and incarcerated hernia and developed acute resp failure and septic shock. 1- Acute hypoxic resp failure.resolved . not needing O2 2- septic shock resolved 3- Ischemic bowel and incarcerated inguinal hernia : s/p exploratory laparotomy and partial small bowel resection. 4- Possible acalculus cholecystitis: s/p cholecystostomy tube -cont with cholycystostomy tube. x 4 more weeks 5-New onset A flutter/A fib: now in sinus rhythm. - cont eliquis at 5 BID. - rate controlled 6- R IJ thrombus /DVT: - Eliquis 7- S/P PEG: cont TF . trial of puree and nectar thick liquids . d/w pt and . Dc today to rehab
--- NOTE | 2018-04-14 15:55 | DS ---
Physical Exam: SUBJECTIVE: Patient seen and examined OBJECTIVE: Vital Signs Period Temp Pulse Resp BP Sys/Ceballos Pulse Ox Last 24 Hr 97.7 F-98.2 F 85-98 20-20 107-155/47-66 98-98 PHYSICAL EXAM GENERAL: The patient is awake, alert, and fully oriented, in no acute distress. HEAD: Normal with no signs of trauma. EYES: PERRL, extraocular movements intact, sclera anicteric, conjunctiva clear. ENT: Ears normal, nares patent, oropharynx clear without exudates, moist mucous membranes. NECK: Trachea midline, full range of motion, supple. LUNGS: Breath sounds equal, clear to auscultation bilaterally, no wheezes, no crackles, no accessory muscle use. HEART: Regular rate and rhythm, S1, S2 without murmur, rub or gallop. ABDOMEN: Soft, nontender, nondistended, normoactive bowel sounds, no guarding, no rebound, no hepatosplenomegaly, no masses. EXTREMITIES: 2+ pulses, warm, well-perfused, no edema. NEUROLOGICAL: Cranial nerves II through XII grossly intact. Normal speech, gait not observed. PSYCH: Normal mood, normal affect. SKIN: Warm, dry, normal turgor, no rashes or lesions noted. LABS Laboratory Results - last 24 hr 04/13/18 04/13/18 04/14/18 17:30 21:18 05:30 WBC 10.7 H RBC 3.76 L Hgb 11.3 L Hct 33.3 L MCV 88.6 MCH 29.9 MCHC 33.7 RDW 14.7 Plt Count 330 MPV 8.2 Sodium Potassium Chloride Carbon Dioxide Anion Gap BUN Creatinine Creat Clearance w eGFR POC Glucometer 195 136 Random Glucose Calcium 04/14/18 04/14/18 04/14/18 05:30 06:02 12:15 WBC RBC Hgb Hct MCV MCH MCHC RDW Plt Count MPV Sodium 142 Potassium 4.0 Chloride 107 Carbon Dioxide 27 Anion Gap 8 BUN 26 H Creatinine 0.5 L Creat Clearance w eGFR > 60 POC Glucometer 141 178 Random Glucose 144 H D Calcium 8.9 HOSPITAL COURSE: Date of Admission:03/12/18 Date of Discharge: 04/14/18 Discharge Summary Reason For Visit: INCARCERATED LEFT INGUINAL HERNIA Current Active Problems Afib (Acute) Aspiration pneumonia of both lower lobes due to gastric secretions (Acute) Dysphagia (Acute) Incarcerated left inguinal hernia (Acute) SBO (small bowel obstruction) (Acute) Strangulated inguinal hernia (Acute) BPH (benign prostatic hyperplasia) (Chronic) DDD (degenerative disc disease), cervical (Chronic) Condition: Improved - Instructions Diet, Activity, Other Instructions: You were hospitalized here due to a bowel obstruction from your hernia causing your stomach contents to spill in your lungs which caused a pneumonia. You had a vast amount of interventions performed including a surgery with some intestine that was taken out. In addition you had a tube put to help you breath and help your gallbladder drain. MEDICATIONS: You will be continued on Eliquis 5mg TWICE DAILY Please continue to take your Tamsulosin 0.4mg daily and Finasteride 5mg daily Until your swallowing becomes stronger you can continue using continuous Perative at 62cc per hour with 25cc free water You are allowed to use a dysphagia puree diet with nectar thick liquids as well as per your swallowing evaluation FOLLOW-UP: You will need to follow-up with Dr. Bran in 4 weeks to remove the drain from your gallbladder In addition, as you get stronger, you may be able to eat more regular foods. You will have to follow-up with Dr. Bran as well if your become medically cleared to remove the feeding tube from your stomach. Please follow-up with Dr. Hinds to help guide your Atrial fibrillation episodes and anticoagulation You will be sent to [facility] for your rehab needs and will be seen by doctors there who can help guide your hopeful return home. follow with Dr. Goode the surgeon avoid falls as it can result in bleed while on anticoagulation you need repeat swallow eval to evaluate ability to eat . Referrals: Luis Carlos Bran MD [Staff Physician] - Kb Hinds MD [Staff Physician] - Manpreet Fox MD [Staff Physician] - 1 Week Disposition: [facility] - Home Medications Comprehensive Discharge Medication List: Ambulatory Orders Finasteride 5 mg PO DAILY 03/12/18 Omeprazole 20 mg PO DAILY 03/12/18 Tamsulosin HCl 0.4 mg PO DAILY 03/12/18 Amino Acids/Protein Hydrolys [Prosource No Carb Liquid Pkt] 30 ml PO BID packet 04/14/18 Apixaban [Eliquis -] 5 mg PO BID tablet 04/14/18 Lytes/Yerba Luma [Mouthkote Solution -] 1 applic MM DAILY applic 04/14/18 Melatonin 5 mg NR HS PRN tab 04/14/18 Polyvinyl Alcohol [Artificial Tears] 1 drop OU BID PRN drops 04/14/18 - Discharge Referral Referred to [facility] No
--- NOTE | 2018-04-14 16:48 | PN ---
Progress Note, Physician History of Present Illness: looking much better no new issues - Current Medication List Current Medications: Active Medications Acetaminophen (Tylenol Oral Solution -) 650 mg PO Q6H PRN PRN Reason: FEVER Last Admin: 04/10/18 21:44 Dose: 650 mg Acetaminophen (Ofirmev Injection -) 1,000 mg IVPB Q6H PRN PRN Reason: PAIN Last Admin: 04/06/18 14:51 Dose: 1,000 mg Amino Acids (Prosource No Carb Liquid Pkt) 30 ml PO BID [facility] Last Admin: 04/14/18 12:42 Dose: 30 ml Apixaban (Eliquis -) 5 mg PO BID [facility] Last Admin: 04/14/18 12:45 Dose: 5 mg Artificial Tears (Artificial Tears) 1 drop OU BID PRN PRN Reason: DRY EYES Last Admin: 03/30/18 10:34 Dose: 1 drop Insulin Aspart (Novolog Vial Sliding Scale -) 1 vial SQ [facility]; Protocol Last Admin: 04/14/18 12:43 Dose: 2 units Melatonin (Melatonin) 5 mg NR HS PRN PRN Reason: INSOMNIA Last Admin: 04/13/18 22:22 Dose: 5 mg Ondansetron HCl (Zofran Injection) 4 mg IVPUSH Q6H PRN PRN Reason: NAUSEA Ranitidine HCl (Zantac Oral Solution -) 150 mg NGT DAILY [facility] Last Admin: 04/14/18 12:42 Dose: 150 mg Saliva Substitute (Mouthkote Solution -) 1 applic MM DAILY [facility] Last Admin: 04/13/18 12:30 Dose: Not Given - Objective Vital Signs: Vital Signs Temperature 98.1 F 04/14/18 09:00 Pulse Rate 85 04/14/18 09:00 Respiratory Rate 20 04/14/18 09:00 Blood Pressure 107/60 04/14/18 09:00 O2 Sat by Pulse Oximetry (%) 98 04/14/18 09:00 Constitutional: Yes: No Distress, Calm Cardiovascular: Yes: Regular Rate and Rhythm Respiratory: Yes: Regular, CTA Bilaterally Gastrointestinal: Yes: Normal Bowel Sounds, Soft, Other (peg in place) Musculoskeletal: Yes: WNL Extremities: Yes: WNL Neurological: Yes: Alert Psychiatric: Yes: Alert Labs: CBC, BMP 04/14/18 05:30 04/14/18 05:30 INR, PTT INR 1.29 (0.82-1.09) H 04/06/18 05:20 Assessment/Plan Problem List - Problems (1) Strangulated inguinal hernia Pulmonary evaluation - weaning today? GI Evaluation - Tbili 3.5, 3.6 BP goal MAP 65-70, has a stapled small bowel anastomosis avoid lwo flow states will follow Code(s): K40.30 - UNIL INGUINAL HERNIA, W OBST, W/O GANGR, NOT SPCF RECUR (2) Incarcerated left inguinal hernia Code(s): K40.30 - UNIL INGUINAL HERNIA, W OBST, W/O GANGR, NOT SPCF RECUR (3) BPH (benign prostatic hyperplasia) Code(s): N40.0 - BENIGN PROSTATIC HYPERPLASIA WITHOUT LOWER URINRY TRACT SYMP Qualifiers: Lower urinary tract symptom presence: symptoms present Lower urinary tract symptom detail: urinary frequency Qualified Code(s): N40.1 - Benign prostatic hyperplasia with lower urinary tract symptoms; R35.0 - Frequency of micturition ; R35.0 - Frequency of micturition (4) DDD (degenerative disc disease), cervical Code(s): M50.30 - OTHER CERVICAL DISC DEGENERATION, UNSP CERVICAL REGION (5) SBO (small bowel obstruction) Code(s): K56.609 - UNSP INTESTNL OBST, UNSP TO PARTIAL VERSUS COMPLETE OBST (6) Aspiration pneumonia of both lower lobes due to gastric secretions Code(s): J69.0 - PNEUMONITIS DUE TO INHALATION OF FOOD AND VOMIT r/o acalculus choley wbc trending down plan stable off of abx continue current mgmt nutrition rest as per the team
[2018-04-15] MEDS ORDERED: APIXABAN 2.5 MG TABLET PO SCH (10:00)
== END 2018-04-14 17:13 | DRG 853 ==
LOC: JER 13:23 → JERBED 21:11 → JICU 03-13 03:31 → J4W 04-12 18:24
PROVIDERS: ADMIT Internal Medicine; ATTEND Internal Medicine
PROC: 05HM33Z Insertion of Infusion Device into Right Internal Jugular Vein, Percutaneous Approach (ICD-10-PCS; principal; 2018-03-12)
PROC: 0D9670Z Drainage of Stomach with Drainage Device, Via Natural or Artificial Opening (ICD-10-PCS; 2018-03-12)
PROC: 4A133B1 Monitoring of Arterial Pressure, Peripheral, Percutaneous Approach (ICD-10-PCS; 2018-03-12)
PROC: 4A133J1 Monitoring of Arterial Pulse, Peripheral, Percutaneous Approach (ICD-10-PCS; 2018-03-12)
PROC: 0DBB0ZZ Excision of Ileum, Open Approach (ICD-10-PCS; 2018-03-13)
PROC: 5A1955Z Respiratory Ventilation, Greater than 96 Consecutive Hours (ICD-10-PCS; 2018-03-13)
PROC: 3E0G76Z Introduction of Nutritional Substance into Upper GI, Via Natural or Artificial Opening (ICD-10-PCS; 2018-03-16)
PROC: 05HN33Z Insertion of Infusion Device into Left Internal Jugular Vein, Percutaneous Approach (ICD-10-PCS; 2018-03-19)
PROC: 0F9430Z Drainage of Gallbladder with Drainage Device, Percutaneous Approach (ICD-10-PCS; 2018-03-20)
PROC: 0DH63UZ Insertion of Feeding Device into Stomach, Percutaneous Approach (ICD-10-PCS; 2018-04-06)
DX: A41.89 Other specified sepsis (principal); J69.0 Pneumonitis due to inhalation of food and vomit; J96.01 Acute respiratory failure with hypoxia; R65.21 Severe sepsis with septic shock; K55.019 Acute (reversible) ischemia of small intestine, extent unspecified; K40.30 Unilateral inguinal hernia, with obstruction, without gangrene, not specified as recurrent; J90 Pleural effusion, not elsewhere classified; N17.9 Acute kidney failure, unspecified; E87.2 Acidosis; E87.3 Alkalosis; I48.92 Unspecified atrial flutter; G62.81 Critical illness polyneuropathy; I82.621 Acute embolism and thrombosis of deep veins of right upper extremity; N40.0 Benign prostatic hyperplasia without lower urinary tract symptoms; K21.9 Gastro-esophageal reflux disease without esophagitis; K29.70 Gastritis, unspecified, without bleeding; K59.09 Other constipation; K57.90 Diverticulosis of intestine, part unspecified, without perforation or abscess without bleeding; K64.9 Unspecified hemorrhoids; M50.30 Other cervical disc degeneration, unspecified cervical region; K81.9 Cholecystitis, unspecified; R00.0 Tachycardia, unspecified; D72.829 Elevated white blood cell count, unspecified; D72.819 Decreased white blood cell count, unspecified; E87.6 Hypokalemia; E83.39 Other disorders of phosphorus metabolism; R50.9 Fever, unspecified; R06.03 Acute respiratory distress; E88.09 Other disorders of plasma-protein metabolism, not elsewhere classified; E83.51 Hypocalcemia; I48.91 Unspecified atrial fibrillation; G72.9 Myopathy, unspecified; Z87.11 Personal history of peptic ulcer disease; R13.10 Dysphagia, unspecified
CPT/HCPCS: 36415; 36600; 47490; 49440; 70450-TC; 71045-TC-FY; 71250-TC; 71260-TC; 74018-TC-FY; 74176-TC; 74177-TC; 74230-TC-FY; 76000-TC-FY; 76705-TC; 80048; 80053; 80076; 81003; 81015; 82248; 82375; 82550; 82553; 82570; 82803; 82962; 83050; 83605; 83690; 83735; 84100; 84295; 84300; 84484; 85025; 85027; 85610; 85730; 86850; 86900; 86901; 87040; 87070; 87075; 87086; 87102; 87116; 87186; 87205; 87206; 87210; 87324; 87449; 87899; 88307-TC; 90670; 92611-GN; 93005; 93010; 93306-TC; 93970-TC; 93971; 94002; 94660; 94760; 97116-GP; 97161-GP; 99285-25; C1729; C1769; G0480; J0131; J1644; J7030

== ENCOUNTER 2018-04-21 17:02 | Observation (INO) | payer OTHER, BC ==
[2018-04-21 19:06] LABS: BASO % 0.6 % (0-2.0); EOS % 1.4 % (0-4.5); HEMOGLOBIN 11.3 GM/dL (11.7-16.9); LYMPH % 21.9 % (8-40); MCH 29.3 pg (25.7-33.7); MCHC 33.3 g/dl (32.0-35.9); MEAN PLT VOLUME 8.8 fl (7.5-11.1); MONO % 9.8 % (3.8-10.2); NEUT % 66.3 % (42.8-82.8); PLATELET COUNT 373 K/MM3 (134-434); RBC 3.86 M/mm3 (4.00-5.60); RDW 15.3 % (11.9-15.9); WHITE BLOOD COUNT 9.5 K/mm3 (4.0-10.0)
[2018-04-21 19:16] LABS: VENOUS PC02 39.2 mmHg (38-52); VENOUS PH 7.47 (7.32-7.42); VENOUS PO2 42.6 mmHg (28-48)
[2018-04-21 19:25] LABS: INR 1.56 (0.82-1.09); PROTHROMBIN TIME (PATIENT) 17.6 SEC (9.7-13.0)
[2018-04-21 19:27] LABS: ACTIVATED PTT 33.5 SECONDS (25.2-36.5)
[2018-04-21 19:35] LABS: ANION GAP 7 (8-16); BILIRUBIN,TOTAL 0.8 mg/dL (0.2-1.0); BLOOD UREA NITROGEN 16 mg/dL (7-18); CALCIUM 8.5 mg/dL (8.5-10.1); CHLORIDE 99 mmol/L (98-107); CO2 28 mmol/L (21-32); CREATININE 0.5 mg/dL (0.7-1.3); GLUCOSE,RANDOM 110 mg/dL (74-106); POTASSIUM 4.1 mmol/L (3.5-5.1); SGOT/AST 19 U/L (15-37); SGPT/ALT 39 U/L (12-78); SODIUM 134 mmol/L (136-145)
[2018-04-21 19:36] LABS: ALK PHOS 202 U/L (45-117); TOT PROT 6.2 g/dl (6.4-8.2)
--- NOTE | 2018-04-21 19:45 | PDOC ---
History of Present Illness - General History Source: Patient, Family, Old Records Exam Limitations: Clinical Condition - History of Present Illness Initial Comments: 04/21/18 19:49 The patient is a 82 year old male, accompanied by , with a significant past medical history of GERD, BPH, who presents to the emergency department with shake, chills, and secondary to malfunctioning cholecystectomy tube. The patient s family reports that his cholecystectomy tube was placed by KAREN-Dr. Martines. The patient was sent from [facility] due to increased concern for infection. The patient was unable to participate in history of present illness due to his clinical condition. HPI and ROS were obtained from family and retirement note. <Steven Jay - Last Filed: 04/21/18 20:46> <Pina Kasper - Last Filed: 04/21/18 20:50> - General Chief Complaint: Revisit,Radiology Variance Stated Complaint: Nelson prat TUBE PROBLEM Time Seen by Provider: 04/21/18 17:30 Past History <Steven Jay - Last Filed: 04/21/18 20:46> - Past Medical History Anemia: No Asthma: No Cancer: No Cardiac Disorders: No CVA: No COPD: No CHF: No Dementia: No Diabetes: No GI Disorders: Yes (acid reflux) Disorders: No HTN: No Hypercholesterolemia: No Liver Disease: No Seizures: No Thyroid Disease: No - Suicide/Smoking/Psychosocial Hx Smoking History: Never smoked Have you smoked in the past 12 months: No Information on smoking cessation initiated: No Hx Alcohol Use: No Drug/Substance Use Hx: No Substance Use Type: None <Pina Kasper - Last Filed: 04/21/18 20:50> - Past Medical History Allergies/Adverse Reactions: Allergies Allergy/AdvReac Type Severity Reaction Status Date / Time Fish Containing Products Allergy Verified 04/21/18 17:53 Home Medications: Ambulatory Orders Finasteride 5 mg PO DAILY 03/12/18 Omeprazole 4 mg PO DAILY 03/12/18 Tamsulosin HCl 0.4 mg PO DAILY 03/12/18 Amino Acids/Protein Hydrolys [Prosource No Carb Liquid Pkt] 30 ml PO BID packet 04/14/18 Apixaban [Eliquis -] 5 mg PO BID tablet 04/14/18 Melatonin 5 mg NR HS PRN tab 04/14/18 Polyvinyl Alcohol [Artificial Tears] 1 drop OU BID PRN drops 04/14/18 Review of Systems - Review of Systems Able to Perform ROS?: Yes Comments:: 04/21/18 19:50 CONSTITUTIONAL: (+) Shakes, chills, leukocytosis, cholecystostomy tube not draining <Steven Jay - Last Filed: 04/21/18 20:46> *Physical Exam - Vital Signs Last Vital Signs Temp Pulse Resp BP Pulse Ox 99.6 F 101 H 18 103/63 100 04/21/18 18:46 04/21/18 17:02 04/21/18 17:02 04/21/18 17:02 04/21/18 17:02 - Physical Exam Comments: 04/21/18 19:50 GENERAL: Well-appearing, well-nourished. No apparent distress. Afebrile HEENT: Normocephalic, atraumatic. PERRL, EOM intact. CARDIOVASCULAR: Normal S1, S2. Regular rate and rhythm. PULMONARY: Clear to auscultation bilaterally. ABDOMEN: (+) Peg tube intact, cholecystotomy tube without sign of cellulitis at point of enter on skin. Flat, Soft, non-distended, non-tender. EXTREMITIES: Normal ROM in all four extremities. No gross deformities. No edema. SKIN: Warm, dry. No rash NEUROLOGICAL: Patient was not able <Steven Jay - Last Filed: 04/21/18 20:46> - Vital Signs Last Vital Signs Temp Pulse Resp BP Pulse Ox 99.6 F 101 H 18 103/63 100 04/21/18 18:46 04/21/18 17:02 04/21/18 17:02 04/21/18 17:02 04/21/18 17:02 <Pina Kasper - Last Filed: 04/21/18 20:50> ED Treatment Course - LABORATORY CBC & Chemistry Diagram: 04/21/18 18:33 04/21/18 18:33 - ADDITIONAL ORDERS Additional order review: Laboratory Results 04/21/18 04/21/18 18:33 18:33 VBG pH 7.47 H POC VBG pCO2 39.2 POC VBG pO2 42.6 Mixed VBG HCO3 27.8 H Sodium 134 L Potassium 4.1 Chloride 99 Carbon Dioxide 28 Anion Gap 7 L BUN 16 Creatinine 0.5 L Creat Clearance w eGFR > 60 Random Glucose 110 H D Calcium 8.5 Total Bilirubin 0.8 AST 19 D ALT 39 D Alkaline Phosphatase 202 H Total Protein 6.2 L Albumin 2.0 L 04/21/18 18:33 RBC 3.86 L MCV 88.0 MCHC 33.3 RDW 15.3 MPV 8.8 Neutrophils % 66.3 Lymphocytes % 21.9 Monocytes % 9.8 Eosinophils % 1.4 Basophils % 0.6 <Steven Jay - Last Filed: 04/21/18 20:46> - LABORATORY CBC & Chemistry Diagram: 04/21/18 18:33 04/21/18 18:33 - ADDITIONAL ORDERS Additional order review: Laboratory Results 04/21/18 04/21/18 18:33 18:33 VBG pH 7.47 H POC VBG pCO2 39.2 POC VBG pO2 42.6 Mixed VBG HCO3 27.8 H Sodium 134 L Potassium 4.1 Chloride 99 Carbon Dioxide 28 Anion Gap 7 L BUN 16 Creatinine 0.5 L Creat Clearance w eGFR > 60 Random Glucose 110 H D Calcium 8.5 Total Bilirubin 0.8 AST 19 D ALT 39 D Alkaline Phosphatase 202 H Total Protein 6.2 L Albumin 2.0 L 04/21/18 18:33 RBC 3.86 L MCV 88.0 MCHC 33.3 RDW 15.3 MPV 8.8 Neutrophils % 66.3 Lymphocytes % 21.9 Monocytes % 9.8 Eosinophils % 1.4 Basophils % 0.6 - RADIOLOGY Radiology Studies Ordered: Category Date Time Status CHEST X-RAY PORTABLE* [RAD] Stat Radiology 04/21/18 18:21 Taken <Pina Kasper - Last Filed: 04/21/18 20:50> Medical Decision Making - Medical Decision Making 04/21/18 19:45 82-year-old male brought in by ambulance from [facility] for concern for shaking chills and nondraining cholecystostomy tube. Upon arrival, the Nelson Olsen drains was not on suction and this is corrected. In reviewing his old records. He's had this since March 20 and typically after 4 to 6 weeks these drains are removed Patient has a past medical history of GERD, BPH, hemorrhoids, incarcerated hernia. He recently had a PEG placed. It appears to be intact -notr from retirement stated that the cholecystostomy tube might have been pulled out. However, it appears to be in his proper position with sutures still intact Nursing homestates that the patient has not had any pain or nausea or vomiting and has been behaving properly. Patient has a history of dysphagia, gait disorder, contractures, muscle weakness. Plan is to look for any signs of infection. Following the report of shaking chills. Therefore, blood cultures, urine cultures, CBC, comp, chest x-ray will be sent Patient to be MedSurg obvious for evaluation by interventional radiology. Dr. Martines to assess if this cholecystostomy tube can be removed <Pina Kasper - Last Filed: 04/21/18 20:50> *DC/Admit/Observation/Transfer - Attestations Scribe Attestion: 04/21/18 19:50 Documentation prepared by Steven Jay, acting as chief medical physicist for Pina Kasper MD. <Steven Jay - Last Filed: 04/21/18 20:46> - Discharge Dispostion Decision to Admit order: Yes <Pina Kasper - Last Filed: 04/21/18 20:50> Diagnosis at time of Disposition: PEG (percutaneous endoscopic gastrostomy) status Cholecystostomy tube dysfunction Qualifiers: Encounter type: subsequent encounter Qualified Code(s): T85.518D - Breakdown ( mechanical) of other gastrointestinal prosthetic devices, implants and grafts, subsequent encounter BPH (benign prostatic hyperplasia) Qualifiers: Lower urinary tract symptom presence: unspecified whether lower urinary tract symptoms present Qualified Code(s): N40.0 - Benign prostatic hyperplasia without lower urinary tract symptoms - Referrals Referrals: Janie Rolle MD [Primary Care Provider] - - Patient Instructions - Post Discharge Activity
--- NOTE | 2018-04-21 21:14 | HP ---
CHIEF COMPLAINT: Cholecystostomy Tube Dysfunction PCP: Dr. Janie Rolle HISTORY OF PRESENT ILLNESS: This is a 82 y/o man from [facility] with a PMHx Acid Reflux, BPH, Incarcerated Hernia, Cholelithiasis, Cholecystoscopy. Recent PEG placement. Who presents to the ED for chills and shakiness, and possible tube dysfunction. Patient is alert to name, place, unable to provide HPI for past or present condition or procedures. Per ED record: The patients family reports that his cholecystectomy tube was placed by KAREN-Dr. Martines. The patient was sent from [facility] due to increased concern for infection. ER course was notable for: (1) No leukocytosis, LA- normal (2) T 99.3, P 101 (3) Recent Travel: None PAST MEDICAL HISTORY: see HPI PAST SURGICAL HISTORY: see HPI Social History: Smoking: Never Alcohol: None Drugs: None From [facility], retired [employer] Family History: Non-contributory Allergies Fish Containing Products Allergy (Verified 04/21/18 17:53) HOME MEDICATIONS: Home Medications Medication Instructions Recorded Finasteride 5 mg PO DAILY 03/12/18 Omeprazole 4 mg PO DAILY 03/12/18 Tamsulosin HCl 0.4 mg PO DAILY 03/12/18 Amino Acids/Protein Hydrolys 30 ml PO BID packet 04/14/18 [Prosource No Carb Liquid Pkt] Apixaban [Eliquis -] 5 mg PO BID tablet 04/14/18 Melatonin 5 mg NR HS PRN tab 04/14/18 Polyvinyl Alcohol [Artificial 1 drop OU BID PRN drops 04/14/18 Tears] REVIEW OF SYSTEMS CONSTITUTIONAL: fever, chills Absent: diaphoresis, generalized weakness, malaise, loss of appetite, weight change HEENT: Absent: rhinorrhea, nasal congestion, throat pain, throat swelling, difficulty swallowing, mouth swelling, ear pain, eye pain, visual changes CARDIOVASCULAR: Absent: chest pain, syncope, palpitations, irregular heart rate, lightheadedness , peripheral edema RESPIRATORY: Absent: cough, shortness of breath, dyspnea with exertion, orthopnea, wheezing, stridor, hemoptysis GASTROINTESTINAL: Absent: abdominal pain, abdominal distension, nausea, vomiting, diarrhea, constipation, melena, hematochezia GENITOURINARY: Absent: dysuria, frequency, urgency, hesitancy, hematuria, flank pain, genital pain MUSCULOSKELETAL: Absent: myalgia, arthralgia, joint swelling, back pain, neck pain SKIN: Absent: rash, itching, pallor HEMATOLOGIC/IMMUNOLOGIC: Absent: easy bleeding, easy bruising, lymphadenopathy, frequent infections ENDOCRINE: Absent: unexplained weight gain, unexplained weight loss, heat intolerance, cold intolerance NEUROLOGIC: Absent: headache, focal weakness or paresthesias, dizziness, unsteady gait, seizure, mental status changes, bladder or bowel incontinence PSYCHIATRIC: Absent: anxiety, depression, suicidal or homicidal ideation, hallucinations. PHYSICAL EXAMINATION Vital Signs - 24 hr 04/21/18 04/21/18 04/21/18 17:02 18:43 18:46 Temperature 99.3 F 99.6 F 99.6 F Pulse Rate 101 H Respiratory 18 Rate Blood Pressure 103/63 O2 Sat by Pulse 100 Oximetry (%) GENERAL: Awake, alert, to name and place only, in no acute distress. HEAD: Normal with no signs of trauma. EYES: Pupils equal, round and reactive to light, extraocular movements intact, sclera anicteric, conjunctiva clear. No lid lag. EARS, NOSE, THROAT: Ears normal, nares patent, oropharynx clear without exudates. Moist mucous membranes. NECK: Normal range of motion, supple without lymphadenopathy, JVD, or masses. LUNGS: Breath sounds equal, clear to auscultation bilaterally. No wheezes, and no crackles. No accessory muscle use. HEART: Regular rate and rhythm, normal S1 and S2 without murmur, rub or gallop. ABDOMEN: Soft, nontender, not distended, normoactive bowel sounds, no guarding, no rebound, no masses. No hepatomegaly or splenomegaly. PEG noted to mid abdomen intact, Cholecystostomy with bilious drainage in tubing noted MUSCULOSKELETAL: Normal range of motion at all joints. No bony deformities or tenderness. No CVA tenderness. UPPER EXTREMITIES: 2+ pulses, warm, well-perfused. No cyanosis. No clubbing. No peripheral edema. LOWER EXTREMITIES: 2+ pulses, warm, well-perfused. No calf tenderness. No peripheral edema. NEUROLOGICAL: Cranial nerves II-XII intact. Normal speech. Gait not observed. PSYCHIATRIC: Cooperative. Good eye contact. Appropriate mood and affect. SKIN: Warm, dry, normal turgor, no rashes or lesions noted, normal capillary refill. Laboratory Results - last 24 hr 04/21/18 04/21/18 04/21/18 18:33 18:33 18:33 WBC 9.5 RBC 3.86 L Hgb 11.3 L Hct 34.0 L MCV 88.0 MCH 29.3 MCHC 33.3 RDW 15.3 Plt Count 373 MPV 8.8 Absolute Neuts (auto) 6.3 Neutrophils % 66.3 Lymphocytes % 21.9 Monocytes % 9.8 Eosinophils % 1.4 Basophils % 0.6 Nucleated RBC % 0 PT with INR 17.60 H INR 1.56 H PTT (Actin FS) 33.5 D VBG pH 7.47 H POC VBG pCO2 39.2 POC VBG pO2 42.6 Mixed VBG HCO3 27.8 H Sodium Potassium Chloride Carbon Dioxide Anion Gap BUN Creatinine Creat Clearance w eGFR Random Glucose Lactic Acid Calcium Total Bilirubin AST ALT Alkaline Phosphatase Total Protein Albumin 04/21/18 04/21/18 18:33 18:33 WBC RBC Hgb Hct MCV MCH MCHC RDW Plt Count MPV Absolute Neuts (auto) Neutrophils % Lymphocytes % Monocytes % Eosinophils % Basophils % Nucleated RBC % PT with INR INR PTT (Actin FS) VBG pH POC VBG pCO2 POC VBG pO2 Mixed VBG HCO3 Sodium 134 L Potassium 4.1 Chloride 99 Carbon Dioxide 28 Anion Gap 7 L BUN 16 Creatinine 0.5 L Creat Clearance w eGFR > 60 Random Glucose 110 H D Lactic Acid 1.3 Calcium 8.5 Total Bilirubin 0.8 AST 19 D ALT 39 D Alkaline Phosphatase 202 H Total Protein 6.2 L Albumin 2.0 L ASSESSMENT/PLAN: 82 y/o man Placed in Observation for Tube Dysfunction. Will place in Observation blood cultures pending urine culture pending No abx started secondary to no Leukocytosis, no left shift, no Lactic Acidemia Patient does not meet SIRS Criteria qSOFA Score 1 Appreciate IR consult Monitor vitals Monitor CBC, BMP Continue IVF Will hold tube feedings for now Continue home meds with parameters FEN- D51/2NS@42ml/hr, Replete lytes prn, NPO(tube feeds) DVT ppx- SCDs, Continue Eliquis Code Status Full Code Dispo: Observation Problem List - Problem (1) Cholecystostomy tube dysfunction Code(s): T85.518A - BREAKDOWN (MECHANICAL) OF GI PROSTH DEV/GRFT, INIT Qualifiers: Encounter type: subsequent encounter Qualified Code(s): T85.518D - Breakdown (mechanical) of other gastrointestinal prosthetic devices, implants and grafts, subsequent encounter (2) PEG (percutaneous endoscopic gastrostomy) status Code(s): Z93.1 - GASTROSTOMY STATUS (3) Afib Code(s): I48.91 - UNSPECIFIED ATRIAL FIBRILLATION Qualifiers: Atrial fibrillation type: persistent Qualified Code(s): I48.1 - Persistent atrial fibrillation (4) DDD (degenerative disc disease), cervical Code(s): M50.30 - OTHER CERVICAL DISC DEGENERATION, UNSP CERVICAL REGION Visit type - Emergency Visit Emergency Visit: Yes ED Registration Date: 04/21/18 Care time: The patient presented to the Emergency Department on the above date and was hospitalized for further evaluation of their emergent condition. - New Patient This patient is new to me today: Yes Date on this admission: 04/21/18 - Critical Care Critical Care patient: No Hospitalist Screening - Colonoscopy Questionnaire Colonoscopy Questionnaire: Colonoscopy Questionnaire - Patient: 50 - 75 years old and never had a screening colonoscopy: Unknown History of colon or rectal polyps, or CA: Unknown History of IBD, Crohn's disease or UC: Unknown History of abdominal radiation therapy as a child: Unknown - Relative: 1 with colon or rectal CA, or polyps at age 60 or younger: Unknown Colon or rectal CA diagnosed at age 45 or younger: Unknown Multiple relatives with colon or rectal CA: Unknown - Outcome: Screening Result: Negative Screen
[2018-04-21] MEDS: DEXTROSE 5%-0.45% SALINE 1,000 ML IV SCH (22:37)
[2018-04-21 23:44] LABS: URINE APPEARANCE CLEAR; URINE BILIRUBIN NEGATIVE (<2.0 mg/dL); URINE COLOR YELLOW; URINE GLUCOSE (UA) NEGATIVE (NEGATIVE); URINE KETONE NEGATIVE (NEGATIVE); URINE LEUK ESTERASE NEGATIVE (NEGATIVE); URINE NITRITE NEGATIVE (NEGATIVE); URINE PROTEIN NEGATIVE (NEGATIVE); URINE UROBILINOGEN NEGATIVE mg/dL (0.2-1.0)
[2018-04-22 07:45] LABS: BASO % 0.5 % (0-2.0); EOS % 2.4 % (0-4.5); HEMATOCRIT 31.4 % (35.4-49); HEMOGLOBIN 10.7 GM/dL (11.7-16.9); LYMPH % 20.7 % (8-40); MCH 29.7 pg (25.7-33.7); MEAN CELL VOLUME 87.2 fl (80-96); MEAN PLT VOLUME 8.5 fl (7.5-11.1); MONO % 9.6 % (3.8-10.2); NEUT % 66.8 % (42.8-82.8); PLATELET COUNT 353 K/MM3 (134-434); RBC 3.61 M/mm3 (4.00-5.60); RDW 15.1 % (11.9-15.9); WHITE BLOOD COUNT 8.7 K/mm3 (4.0-10.0)
[2018-04-22 08:08] LABS: CHLORIDE 102 mmol/L (98-107); POTASSIUM 3.9 mmol/L (3.5-5.1); SODIUM 137 mmol/L (136-145)
[2018-04-22 08:32] LABS: ANION GAP 9 (8-16); BLOOD UREA NITROGEN 11 mg/dL (7-18); CALCIUM 8.5 mg/dL (8.5-10.1); CO2 26 mmol/L (21-32); CREATININE 0.4 mg/dL (0.7-1.3); GLUCOSE,RANDOM 101 mg/dL (74-106)
[2018-04-22 11:43] VITALS: BMI 20.5
--- NOTE | 2018-04-22 13:00 | EKG ---
Test Reason : Blood Pressure : / mmHG Vent. Rate : 088 BPM Atrial Rate : 088 BPM P-R Int : 170 ms QRS Dur : 068 ms QT Int : 358 ms P-R-T Axes : 002 -03 035 degrees QTc Int : 433 ms SINUS RHYTHM WITH MARKED SINUS ARRHYTHMIA OTHERWISE NORMAL ECG WHEN COMPARED WITH ECG OF 19-MAR-2018 18:41, SINUS RHYTHM HAS REPLACED ATRIAL FIBRILLATION T WAVE AMPLITUDE HAS INCREASED IN ANTEROLATERAL LEADS Confirmed by JERAMY PEREZ, RM ([id number]) on 04/22/2018 12:59:36 PM Referred By: Confirmed By:RM DESHPANDE MD
[2018-04-22] MEDS ORDERED: ARTIFICIAL TEARS (POLYVINYL ALCOHOL 1.4%) OPTH DROPS OU PRN (13:54)
--- NOTE | 2018-04-22 13:56 | PN ---
Progress Note, Physician Chief Complaint: no complaints at bedside pt has no pain he had srinath drain removed by IR - Current Medication List Current Medications: Active Medications Amino Acids (Prosource No Carb Liquid Pkt) 30 ml PO BID [facility] Apixaban (Eliquis -) 5 mg PO BID [facility] Artificial Tears (Artificial Tears) 1 drop OU BID PRN PRN Reason: DRY EYES Finasteride (Proscar -) 5 mg PO DAILY [facility] Dextrose/Sodium Chloride (D5-1/2ns -) 1,000 mls @ 42 mls/hr IV ASDIR JUDY Last Admin: 04/21/18 22:37 Dose: 42 mls/hr Tamsulosin HCl (Flomax -) 0.4 mg PO DAILY [facility] - Objective Vital Signs: Vital Signs Temperature 98.5 F 04/22/18 04:54 Pulse Rate 94 H 04/22/18 04:54 Respiratory Rate 18 04/22/18 07:00 Blood Pressure 119/54 04/22/18 04:54 O2 Sat by Pulse Oximetry (%) 98 04/22/18 07:00 Constitutional: Yes: No Distress, Calm Cardiovascular: Yes: Regular Rate and Rhythm Respiratory: Yes: CTA Bilaterally Gastrointestinal: Yes: Normal Bowel Sounds, Soft, Other (GT+). No: Tenderness Edema: No Labs: CBC, BMP 04/22/18 07:00 04/22/18 07:00 INR, PTT INR 1.56 (0.82-1.09) H 04/21/18 18:33 Problem List - Problems (1) Cholecystostomy tube dysfunction Code(s): T85.518A - BREAKDOWN (MECHANICAL) OF GI PROSTH DEV/GRFT, INIT Qualifiers: Encounter type: subsequent encounter Qualified Code(s): T85.518D - Breakdown (mechanical) of other gastrointestinal prosthetic devices, implants and grafts, subsequent encounter (2) PEG (percutaneous endoscopic gastrostomy) status Code(s): Z93.1 - GASTROSTOMY STATUS (3) BPH (benign prostatic hyperplasia) Code(s): N40.0 - BENIGN PROSTATIC HYPERPLASIA WITHOUT LOWER URINRY TRACT SYMP Qualifiers: Lower urinary tract symptom presence: unspecified whether lower urinary tract symptoms present Qualified Code(s): N40.0 - Benign prostatic hyperplasia without lower urinary tract symptoms (4) Afib Code(s): I48.91 - UNSPECIFIED ATRIAL FIBRILLATION Qualifiers: Atrial fibrillation type: persistent Qualified Code(s): I48.1 - Persistent atrial fibrillation (5) Dysphagia Code(s): R13.10 - DYSPHAGIA, UNSPECIFIED Qualifiers: Dysphagia type: unspecified Qualified Code(s): R13.10 - Dysphagia, unspecified (6) Incarcerated left inguinal hernia Code(s): K40.30 - UNIL INGUINAL HERNIA, W OBST, W/O GANGR, NOT SPCF RECUR Assessment/Plan PLAN SRINATH drain removed Will wait for sono abdomen repeat Keep NPO till sono clinically well dc planning
[2018-04-22] MEDS: AMINO ACIDS/PROTEIN HYDROLYS 30 ML LIQUID.PKT PO SCH (17:35)
[2018-04-22] MEDS: APIXABAN 5 MG TABLET PO SCH (21:15)
[2018-04-23] MEDS: DEXTROSE 5%-0.45% SALINE 1,000 ML IV SCH (05:50)
[2018-04-23 07:26] LABS: ALBUMIN 1.7 g/dl (3.4-5.0); ANION GAP 9 (8-16); BLOOD UREA NITROGEN 13 mg/dL (7-18); CALCIUM 8.2 mg/dL (8.5-10.1); CHLORIDE 106 mmol/L (98-107); CO2 25 mmol/L (21-32); GLUCOSE,RANDOM 88 mg/dL (74-106); POTASSIUM 3.9 mmol/L (3.5-5.1); SODIUM 140 mmol/L (136-145)
[2018-04-23 07:30] LABS: ALK PHOS 152 U/L (45-117); BASO % 0.7 % (0-2.0); BILIRUBIN,TOTAL 0.6 mg/dL (0.2-1.0); CREATININE 0.4 mg/dL (0.7-1.3); EOS % 4.4 % (0-4.5); HEMATOCRIT 30.8 % (35.4-49); HEMOGLOBIN 10.4 GM/dL (11.7-16.9); LYMPH % 29.1 % (8-40); MCH 29.5 pg (25.7-33.7); MCHC 33.8 g/dl (32.0-35.9); MEAN CELL VOLUME 87.2 fl (80-96); MEAN PLT VOLUME 8.6 fl (7.5-11.1); MONO % 8.3 % (3.8-10.2); NEUT % 57.5 % (42.8-82.8); PLATELET COUNT 381 K/MM3 (134-434); RBC 3.53 M/mm3 (4.00-5.60); RDW 14.9 % (11.9-15.9); SGOT/AST 15 U/L (15-37); SGPT/ALT 28 U/L (12-78); TOT PROT 5.6 g/dl (6.4-8.2); WHITE BLOOD COUNT 7.1 K/mm3 (4.0-10.0)
[2018-04-23] MEDS: AMINO ACIDS/PROTEIN HYDROLYS 30 ML LIQUID.PKT PO SCH ×2 (08:20→17:49)
[2018-04-23] MEDS ORDERED: TAMSULOSIN HCL 0.4 MG CAP.ER.24H (FP) PO SCH (08:30)
[2018-04-23] MEDS ORDERED: FINASTERIDE 5 MG TABLET (FP) PO SCH (10:00)
[2018-04-23] MEDS: APIXABAN 5 MG TABLET PO SCH (10:30)
--- NOTE | 2018-04-23 11:17 | DS ---
Physical Examination Vital Signs: Vital Signs Temperature 98.2 F 04/23/18 10:00 Pulse Rate 96 H 04/23/18 10:00 Respiratory Rate 20 04/23/18 10:00 Blood Pressure 112/68 04/23/18 10:00 O2 Sat by Pulse Oximetry (%) 96 04/23/18 06:14 Constitutional: Yes: No Distress, Calm Cardiovascular: Yes: Pulse Irregular Respiratory: Yes: CTA Bilaterally Gastrointestinal: Yes: Normal Bowel Sounds, Soft, Other (GT). No: Abdomen, Obese, Tenderness Edema: No Labs: CBC, BMP 04/23/18 06:00 04/23/18 06:00 Discharge Summary Reason For Visit: PERCUTANEOUS ENDOSCOPIC GASTROSTOMY STATUS Current Active Problems Cholecystostomy tube dysfunction (Acute) PEG (percutaneous endoscopic gastrostomy) status (Acute) BPH (benign prostatic hyperplasia) (Chronic) Hospital Course: Admitted for LEIF drain removal Afebrile pt feels well He ate PO meals well- no aspiration PT eval done Stable for dc to NH for Short term rehab Condition: Good - Instructions Referrals: Janie Rolle MD [Primary Care Provider] - Disposition: [facility] FACILITY - Home Medications Comprehensive Discharge Medication List: Ambulatory Orders Finasteride 5 mg PO DAILY 03/12/18 Omeprazole 4 mg PO DAILY 03/12/18 Tamsulosin HCl 0.4 mg PO DAILY 03/12/18 Amino Acids/Protein Hydrolys [Prosource No Carb Liquid Pkt] 30 ml PO BID packet 04/14/18 Apixaban [Eliquis -] 5 mg PO BID tablet 04/14/18 Melatonin 5 mg NR HS PRN tab 04/14/18 Polyvinyl Alcohol [Artificial Tears] 1 drop OU BID PRN drops 04/14/18
[2018-04-23 18:20] VITALS: BP 115/71; PULSE 92; TEMP 97.3
== END 2018-04-23 19:53 ==
LOC: JER 17:02 → JERBED 20:50 → J7W 04-22 04:33
PROVIDERS: ADMIT Internal Medicine; ATTEND Internal Medicine
PROC: BF12YZZ Fluoroscopy of Gallbladder using Other Contrast (ICD-10-PCS; principal; 2018-04-21)
PROC: 2W53XYZ Removal of Other Device on Abdominal Wall (ICD-10-PCS; 2018-04-21)
DX: K94.23 Gastrostomy malfunction (principal); I48.1 Persistent atrial fibrillation; Z79.01 Long term (current) use of anticoagulants; K40.30 Unilateral inguinal hernia, with obstruction, without gangrene, not specified as recurrent; K21.9 Gastro-esophageal reflux disease without esophagitis; R13.10 Dysphagia, unspecified; N40.0 Benign prostatic hyperplasia without lower urinary tract symptoms; Z91.013 Allergy to seafood
CPT/HCPCS: 36415; 71045-TC-FY; 76000-TC-FY; 76705-TC; 80048; 80053; 81003; 82803; 83605; 85025; 85610; 85730; 87040; 87086; 93005; 93010; 97116-GP; 97161-GP; 99285-25; G0378

== ENCOUNTER 2018-07-24 06:19 | Day surgery (SDC) | payer OTHER, BC ==
[2018-07-23 16:53] VITALS: BMI 22.8
[2018-07-24] MEDS ORDERED: ONDANSETRON 4 MG/2 ML VIAL IVPUSH PRN (07:22)
[2018-07-24] MEDS ORDERED: MIDAZOLAM HCL 2 MG/2 ML SINGLE DOSE VIAL ONE ×2 (07:27→07:32)
[2018-07-24] MEDS ORDERED: DEXAMETHASONE SOD PHOSPHATE/PF 10 MG/ML SDV ONE (07:29)
[2018-07-24] MEDS ORDERED: BUPIVACAINE HCL/PF 0.5% (5MG/ML) 10 ML VIAL ONE ×3 (07:29→07:45)
[2018-07-24] MEDS ORDERED: LACTATED RINGERS SOLUTION 1,000 ML IV SCH (07:30)
[2018-07-24] MEDS ORDERED: PROPOFOL 20 ML ONE (07:32)
--- NOTE | 2018-07-24 08:00 | HP ---
Admitting History and Physical - Admission Chief Complaint: left inguinal hernia History of Present Illness: 82 yo male with MMP including AFib (last eloqufriday) BPH s/p exploratory lapartomy for incarcerated LIH. Preseneting today for elective LIH repair with mesh. He has no obstructive symptoms but has intermittent achy pain. History Source: Patient, Medical Record Limitations to Obtaining History: No Limitations - Past Medical History Cardiovascular: Yes: AFIB Renal/: Yes: BPH Musculoskeletal: Yes: Osteoarthritis - Past Surgical History Past Surgical History: Yes: Hernia Repair (umbilcal?) - Advance Directives Advance Directives: Yes: Health Care Proxy - Smoking History Smoking history: Never smoked Have you smoked in the past 12 months: No - Alcohol/Substance Use Hx Alcohol Use: No History of Substance Use: reports: None - Social History Occupation: Retired [employer] History of Recent Travel: No Home Medications - Allergies Allergies/Adverse Reactions: Allergies Allergy/AdvReac Type Severity Reaction Status Date / Time Fish Containing Products Allergy Verified 07/24/18 07:15 No Known Drug Allergies Allergy Verified 07/24/18 07:15 - Home Medications Home Medications: Ambulatory Orders Finasteride 5 mg PO DAILY 03/12/18 Tamsulosin HCl 0.4 mg PO DAILY 03/12/18 Apixaban [Eliquis -] 5 mg PO BID tablet 04/14/18 Multivitamin [One Daily] 1 each PO DAILY 07/24/18 Review of Systems - Review of Systems Constitutional: denies: Chills, Fever Eyes: denies: Blind Spots, Recent Change in Vision HENT: denies: Difficult Swallowing, Throat Pain Neck: denies: Decreased ROM, Tenderness Cardiovascular: denies: Chest Pain, Palpitations Respiratory: denies: Cough, SOB Gastrointestinal: denies: Abdominal Pain, Constipation, Diarrhea Breasts: denies: See HPI Musculoskeletal: denies: Back Pain, Other Integumentary: denies: Bruising, Lesions Neurological: denies: Seizure, Syncope Endocrine: denies: Excessive Sweating, Flushing, Increased Hunger, Unexplained Weight Gain, Unexplained Weight Loss Hematology/Lymphatic: denies: Easily Bruised, Excessive Bleeding Psychiatric: denies: Anxiety, Depression Physical Examination Vital Signs: Vital Signs Temperature 98.0 F 07/24/18 07:12 Pulse Rate 66 07/24/18 07:12 Respiratory Rate 20 07/24/18 07:12 Blood Pressure 130/75 07/24/18 07:12 O2 Sat by Pulse Oximetry (%) 100 07/24/18 07:10 Constitutional: Yes: Well Nourished, No Distress, Calm Eyes: Yes: Conjunctiva Clear, EOM Intact HENT: Yes: Atraumatic, Normocephalic Neck: Yes: Supple, Trachea Midline Cardiovascular: Yes: Regular Rate and Rhythm Respiratory: Yes: Regular, CTA Bilaterally Gastrointestinal: Yes: Normal Bowel Sounds, Soft Renal/: No: CVA Tenderness - Left, CVA Tenderness - Right Musculoskeletal: No: Muscle Pain, Muscle Weakness Extremities: No: Cool Edema: No Peripheral Pulses WNL: Yes Peripheral Pulses: Left Radial: 2+, Right Radial: 2+, Left Doralis Pedis: 2+, Right Dorsalis Pedis: 2+ Neurological: Yes: Oriented. No: Alert Psychiatric: Yes: Alert, Oriented Problem List - Problems (1) Incarcerated left inguinal hernia Assessment/Plan: 82yo male with incarcerated left inguinal hernia NPO and IVF hydration IV antibiotics OR for LIH Repair with mesh Discussed with patient risks, benefits and alternatives of aforementioned procedure, including but not limited to bleeding, infection, injury to adjacent structures, recurrent, incisional hernia, need for further procedures, ; alternatives include antibiotics, delayed or no surgery - risks of this include failure of nonoperative therapy, perforation, sepsis, recurrence, . Patient desires to proceed with operation - will take to OR for above. Informed consent signed for same. Code(s): K40.30 - UNIL INGUINAL HERNIA, W OBST, W/O GANGR, NOT SPCF RECUR (2) Afib Code(s): I48.91 - UNSPECIFIED ATRIAL FIBRILLATION Qualifiers: Atrial fibrillation type: chronic Qualified Code(s): I48.2 - Chronic atrial fibrillation (3) Aspiration pneumonia of both lower lobes due to gastric secretions Code(s): J69.0 - PNEUMONITIS DUE TO INHALATION OF FOOD AND VOMIT (4) BPH (benign prostatic hyperplasia) Code(s): N40.0 - BENIGN PROSTATIC HYPERPLASIA WITHOUT LOWER URINRY TRACT SYMP Qualifiers: Lower urinary tract symptom presence: symptoms present Lower urinary tract symptom detail: urinary hesitancy Qualified Code(s): N40.1 - Benign prostatic hyperplasia with lower urinary tract symptoms; R39.11 - Hesitancy of micturition (5) DDD (degenerative disc disease), cervical Code(s): M50.30 - OTHER CERVICAL DISC DEGENERATION, UNSP CERVICAL REGION
--- NOTE | 2018-07-24 08:03 | OP ---
Operative Note - Note: Operative Date: 07/24/18 Pre-Operative Diagnosis: Incarcerated left inguinal hernia Operation: Left inguinal hernia Repair with Mesh and plug Findings: incarcerted sigmoid colon in left indirect AND direct inguinal hernia Implants: BARD Large Prefic mesh and plug system Post-Operative Diagnosis: Same as Pre-op Surgeon: Manpreet Fox Aircraft Structural Design Engineer: Devonte Butcher Anesthesiologist/NAVAL AIRCREWMAN TACTICAL HELICOPTER: Morena Trevino Anesthesia: General, Local (0.5% marcaine 20ml) Specimens Removed: hernia sac and cord lipoma Estimated Blood Loss (mls): 10 Fluid Volume Replaced (mls): 1,000 Operative Report Dictated: Yes
--- NOTE | 2018-07-24 08:04 | DS ---
Physical Examination Vital Signs: Vital Signs Temperature 98.0 F 07/24/18 07:12 Pulse Rate 66 07/24/18 07:12 Respiratory Rate 20 07/24/18 07:12 Blood Pressure 130/75 07/24/18 07:12 O2 Sat by Pulse Oximetry (%) 100 07/24/18 07:10 Vital Signs Period Temp Pulse Resp BP Sys/Ceballos Pulse Ox Last 24 Hr 98.0 F-98.0 F 66-66 20-20 130-130/75-75 100 Findings/Remarks: stable post operatively. Minimal pain at the operative site, voiding spontaneously. Constitutional: Yes: Well Nourished, No Distress, Calm Eyes: Yes: Conjunctiva Clear, EOM Intact HENT: Yes: Atraumatic, Normocephalic Neck: Yes: Supple Cardiovascular: Yes: Regular Rate and Rhythm, S1, S2 Respiratory: Yes: Regular, CTA Bilaterally Gastrointestinal: Yes: Normal Bowel Sounds, Soft. No: Tenderness ...Rectal Exam: Yes: Deferred Renal/: No: CVA Tenderness - Left, CVA Tenderness - Right Musculoskeletal: No: Muscle Pain, Muscle Weakness Extremities: No: Cool, Cyanosis Wound/Incision: Yes: Clean/Dry, Well Approximated, Dressing Dry and Intact ( Left inguinal area) Neurological: Yes: Alert, Oriented Psychiatric: Yes: Alert, Oriented Discharge Summary Reason For Visit: LEFT INGUINAL HERNIA incarcerated left inguinal hernia Procedures: Principal: Incarcerated left inguinal hernia repair Other Procedures: Left inguinal hernia repair with mesh and plug Hospital Course: admitted for elective surgical procedure. uneventful hernia repair. stable postop for discharge home. Condition: Improved - Instructions Diet, Activity, Other Instructions: Postoperative instructions: You had a Left Inguinal Hernia Repair 07/24/[address] Manpreet Fox of [facility]. Activity: Resume your usual activities gradually, but no heavy exertion or lifting more than 10-15 pounds for 4-6 weeks. Remove dressings 48 hours after surgery, if they are not already off. You may shower daily starting then, just pat the incision areas dry. No bath or swimming until skin incisions have healed. Albino should not need to be recovered with any dressings, unless you have been told otherwise. Eat lightly at first, but advance to your usual diet as tolerated. Pain: For pain, you may use and alternate Tylenol (acetaminophen) 1-2 pills and/ or ibuprofen 200 mg (1-3 pills) every 6 hours each as needed; this means that you can take one OR the other at 3-hour intervals. If you are prescribed a Tylenol/narcotic combination for severe pain, use it instead of plain Tylenol as needed and switch back when your pain starts decreasing. Do not take more than 4000 mg of acetaminophen in a day. Take medications as prescribed or indicated on the labeling. Follow-up: Call Dr. Fox' office at [phone] to make your postop appointment (Friday in approximately 2 weeks after surgery as advised). Clinic is held in the [facility] on the first floor of [facility]. Call the office if you have: * increasing pain not responsive to pain medication * fever of 101F or higher * vomiting * unusual or increasing bleeding or drainage from wounds * increasing redness or swelling at wound sites * inability to urinate Also, see your primary medical doctor within 1-2 weeks. Disposition: HOME - Home Medications Comprehensive Discharge Medication List: Ambulatory Orders Finasteride 5 mg PO DAILY 03/12/18 Tamsulosin HCl 0.4 mg PO DAILY 03/12/18 Apixaban [Eliquis -] 5 mg PO BID tablet 04/14/18 Multivitamin [One Daily] 1 each PO DAILY 07/24/18
[2018-07-24] MEDS ORDERED: BUPIVACAINE HCL/PF (5 MG/ML) 30 ML VIAL IJ ONE (09:30)
[2018-07-24] MEDS ORDERED: ACETAMINOPHEN 1000 MG/100 ML VIAL (NON FORMULARY) IVPB ONE (10:37)
[2018-07-24 14:18] VITALS: BP 124/66; PULSE 88; TEMP 98
--- NOTE | 2018-07-27 16:46 | PATH ---
Surgical Pathology Report Patient Name: BETTY PEDRO [facility]. Rec. #: [id number] /Age/Gender: 1935 (Age: 82) / M Account: [id number] Location: [facility] Taken: 07/24/2018 Received: 07/24/2018 Reported: 07/27/2018 Physicians: Manpreet Fox M.D. Specimen(s) Received A: CORD LIPOMA B: HERNIA SAC Clinical History Left inguinal hernia with sigmoid colon Final Diagnosis A. CORD LIPOMA, EXCISION: MATURE FIBROADIPOSE TISSUE AND ONE BENIGN LYMPH NODE (0/). B. HERNIA SAC, INGUINAL HERNIA REPAIR: HERNIA SAC AND CONTENTS. Electronically Signed Dianna Genao M.D. Gross Description A. The specimen is received in formalin labeled "cord lipoma" is an irregular piece of fatty soft tissue measuring 4.5 x 2.5 x 1.5 cm. Polytechnic Registrar sections are submitted in one cassette. B. The specimen is received in formalin labeled "hernia sac" is a fibromembranous to fibroadipose soft tissue consistent with hernia sac measuring 5 x 3 x 1.5 cm. Polytechnic Registrar sections are submitted in one cassette. MLSZ/07/24/2018 sanrenata/07/24/2018
--- NOTE | 2018-07-27 21:15 | OP ---
DATE OF OPERATION: 07/24/2018 PREOPERATIVE DIAGNOSIS: Incarcerated left inguinal hernia. POSTOPERATIVE DIAGNOSIS: Incarcerated left inguinal hernia. PROCEDURE: Left inguinal hernia repair with mesh and plug system. ATTENDING SURGEON: Manpreet Fox MD COOPER HELPER: Devonte Butcher MD ANESTHESIA: Morena Michaels CRNA ANESTHESIA TYPE: General with local. Local consisted of 0.5% Marcaine a total of 20 mL given in an area block fashion. ESTIMATED BLOOD LOSS: 10 mL. IV FLUIDS: 1000 mL crystalloid. SPECIMEN: Hernia sac and cord lipoma. BRIEF FINDINGS: The patient had an incarcerated loop of sigmoid colon in the left indirect and direct inguinal hernias. Cord lipoma as well was also discovered. All counts correct at the completion of the case. INDICATIONS: The patient is an 82-year-old male with a past medical history of a small bowel obstruction, incarcerated right inguinal hernia who was counseled regarding risks, benefits, and alternatives of repair of a left inguinal hernia. Signed informed consent was taken for the procedure. DESCRIPTION OF PROCEDURE: The patient was brought to the operating room and placed in supine position on the operating table. Lower extremity SCDs were placed to compression. The patient was induced with general anesthesia and endotracheally intubated and received 2 g of Ancef preoperatively prior to surgery. He was clipped, sterilely prepped, and draped in standard surgical fashion over the lower abdomen, to the groin, and inguinal region. Left side was identified. Formal time-out was completed identifying the operative site, and with all parties in agreement, began first with a scribed incision overlying the inguinal ligament on the left side. It was incised with a 15-blade scalpel, deepened, and widened through subcutaneous tissue with Bovie cautery through Loi and Sanjay to the anterior rectus external oblique fascia. Immediately, the fascia was elevated and then opened with a scalpel and then extended with Metzenbaum scissors to the external inguinal ring. The area was then retracted out of the surgical field, and the spermatic cord was identified. Between the pubic symphysis and the spermatic cord, the cord structures were encircled and surrounded with a Erika drain. This allowed for retraction into the surgical field. Loose, wafey connective tissue was controlled. The spermatic cord was then opened in the cremasteric fibers along the skeletal muscle, which was apparent. Once opened, it was clear that there was an indirect component of the hernia sac into the internal ring. This was reduced, and the hernia sac was divided and isolated from the cord structures. This appeared to be a loop of sigmoid colon. After opening the hernia sac, it was reduced into the abdomen and appeared very viable. We then returned to examine the floor, and the floor also in the direct area appeared to be quite weak. Care was taken to high ligate the indirect hernia sac with a 2-0 Vicryl in interrupted fashion. This was then inverted, and a mesh plug size large was interposed in this space. With the mesh plug in place, it was secured using 2-0 Prolene circumferentially to secure the mesh plug into the inverted hernia sac in the internal ring in the anteromedial position. Once this was done, after inspecting the floor, it was imbricated, according to the standard Marianna repair prior to the placement of mesh overlay, which would act as an additional tension-free repair. The floor itself was imbricated with 2-0 Vicryl in running fashion from the most medial aspect at the pubic tubercle toward the internal ring. Once done, the floor appeared quite flat. We then took the time to contour a 2 x 4 mesh with an eyelet cut for the spermatic cord structures and laid into position. The onlay mesh was then secured first with a pubic tubercle and then to the shelving edge of the transversalis fascia and the inguinal ligament itself until the tail was met posterior to the cord structures, which laid lateral and through the mesh and then they were tacked together all with 2-0 Prolene. This was done under direct visualization with adequate retraction. Once complete, the direct and indirect hernias were reinforced and then the external oblique fascia was closed in running fashion over the repair. The ilioinguinal and general femoral nerves were identified and sacrificed as they were impeding the repair. The area was irrigated and then the external oblique was approximated in running fashion. Once complete, the skin was cleaned and then closed in layers first by approximating the Sanjay fascia with 2-0 Vicryl then the Camper in a running subdermal stitch with 2-0 Vicryl to approximate the deep dermis. The skin was then closed with skin panda after being cleaned. Sterile dressings were placed. Local anesthetic was inoculated into the dermis at that layer for postoperative pain. The patient was awoken from general anesthesia having tolerated the procedure well. All counts were correct prior to closure. The mesh implant was a Bard large PerFix mesh and plug system. MD CONCEPCION Cotton/[id number]
== END 2018-07-24 13:30 | disposition home or self-care (01) ==
LOC: JASU-SURG 06:19
PROC: 0YU60JZ Supplement Left Inguinal Region with Synthetic Substitute, Open Approach (ICD-10-PCS; principal; 2018-07-24 08:00)
DX: K40.90 Unilateral inguinal hernia, without obstruction or gangrene, not specified as recurrent (principal)
CPT/HCPCS: 88302-TC; 88304-TC; 94760; J0131

== ENCOUNTER 2018-07-26 14:57 | Emergency (ER) | payer OTHER, BC ==
[2018-07-26 15:02] VITALS: BMI 22.8
--- NOTE | 2018-07-26 15:56 | PDOC ---
Attending Attestation - Resident Resident Name: Dustin Valle - ED Attending Attestation I have performed the following: I have examined & evaluated the patient, The case was reviewed & discussed with the resident, I agree w/resident's findings & plan, Exceptions are as noted - HPI HPI: 07/26/18 15:55 82y M hx of BPH, 3 days uncomplicated hernia repair, presents with complaint of urinary retention. Pt notes he was unable to urinate in the past day, feels urge to urinate but is unable to. pt denie any cp, sob, abd pain, n/v. pt also notes some scrotal edema/swelling and brusing in the region of his surgery but does not really hurt. pt endorses some constipation recently. on exam pt in n odistress abd soft nontender, L inguinal region - ecchymotic, but nontender, no massess, no warmth, dressing in place gu: circumcised penis, b/l scrotal edema, ecchymotic, nontender will obtain scrotoal US to r/o collection, hernia, no tenderness will place quintero will sen UA to r/o uti 07/26/18 16:55 drained 500cc of urine from quintero Awaiting lab work, UA and sonogram. suspect scrotoal edema c/w post op changes, doubt abcess/collection/torsion due to lack of pain/tenderness signed out to dr. artis to reassess and dispo with evening team - Physicial Exam PE: 07/27/18 10:01 see above - Medical Decision Making 07/27/18 10:01 see above
--- NOTE | 2018-07-26 16:11 | PDOC ---
History of Present Illness - General Chief Complaint: Urinary Problem Stated Complaint: cant urin/pain Time Seen by Provider: 07/26/18 15:11 - History of Present Illness Initial Comments: 07/26/18 16:10 82yo man with PMH of GERD, BPH, degenerative disc disease (cervical), diverticulosis, hemorrhoids, incarcerated LIH with R infarcted bowel s/p segmental terminal ileum resection with primary anastomosis on 03/2018 requiring pressor support, intubation, PEG tube, cholecystostomy tube and ICU for sepsis, and recent repair of LIH on 07/24/2018, p/w 1 day of urinary retention and scrotal swelling. Pt says he can't pee but feels the urge to go to the bathroom and it is difficult for him to poop. Swelling began yesterday as well and is worsening. Denies pain, fever, chills, cp, sob, n/v/d, numbness or tingling or hx of STDs. 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 Wine w/ dinner Past History - Past Medical History Allergies/Adverse Reactions: Allergies Allergy/AdvReac Type Severity Reaction Status Date / Time Fish Containing Products Allergy Verified 07/26/18 15:03 No Known Drug Allergies Allergy Verified 07/26/18 15:03 Home Medications: Ambulatory Orders Finasteride 5 mg PO DAILY 03/12/18 Tamsulosin HCl 0.4 mg PO DAILY 03/12/18 Amox-Tr/K Cl [Augmentin - 875Mg Tablet] 1 tab PO BID #14 tablet 07/24/18 Apixaban [Eliquis -] 5 mg PO BID #0 tablet 07/24/18 Multivitamin [One Daily] 1 each PO DAILY 07/24/18 Oxycodone HCl/Acetaminophen [Percocet 5/325 -] 1 tab PO Q6H #40 tab MDD 5 Anemia: No Asthma: No Cancer: No Cardiac Disorders: Yes (afib) CVA: No COPD: No CHF: No Dementia: No Diabetes: No GI Disorders: Yes (acid reflux) Disorders: Yes (bph) HTN: No Hypercholesterolemia: No Liver Disease: No Seizures: No Thyroid Disease: No - Surgical History Cholecystectomy: No - Suicide/Smoking/Psychosocial Hx Smoking History: Never smoked Have you smoked in the past 12 months: No Hx Alcohol Use: No Drug/Substance Use Hx: No Substance Use Type: None Hx Substance Use Treatment: No Review of Systems - Review of Systems Constitutional: Yes: See HPI HEENTM: Yes: See HPI Respiratory: Yes: See HPI Cardiac (ROS): Yes: See HPI ABD/GI: Yes: See HPI : Yes: See HPI Musculoskeletal: Yes: See HPI Integumentary: Yes: See HPI Neurological: Yes: See HPI Endocrine: Yes: See HPI Hematologic/Lymphatic: Yes: See HPI *Physical Exam - Vital Signs Last Vital Signs Temp Pulse Resp BP Pulse Ox 98.1 F 111 H 20 114/71 98 07/26/18 15:01 07/26/18 15:01 07/26/18 15:01 07/26/18 15:01 07/26/18 15:01 - Physical Exam Comments: 07/26/18 16:28 GENERAL: AOx3 in mild distress HEAD: No abrasion, hematoma or laceration. EYES: sclera anicteric, conjunctival injection ENT: Hearing grossly normal, NECK: Normal ROM, supple, no lymphadenopathy LUNGS: CTAB HEART: RRR normal S1 and S2, no murmurs appreciated, peripheral pulses normal and equal bilaterally ABDOMEN: Soft, ND, suprapubic tenderness. +BS. L inguinal region - ecchymotic, but nontender, no masses, no warmth, dressing in place : circumcised penis, b/l scrotal edema, ecchymotic, nontender. there does not appear to be bowel present. EXTREMITIES: No edema. strength grossly intact NEUROLOGICAL: Cranial nerves II through XII grossly intact. normal speech. SKIN: Warm, Dry ED Treatment Course - LABORATORY CBC & Chemistry Diagram: 07/26/18 16:40 07/26/18 16:40 - RADIOLOGY Radiology Studies Ordered: Category Date Time Status SCROTUM AND CONTENTS US [US] Stat Ultrasound 07/26/18 16:07 Ordered Medical Decision Making - Medical Decision Making 07/26/18 16:31 82yo man with PMH of GERD, BPH, degenerative disc disease (cervical), diverticulosis, hemorrhoids, incarcerated LIH with R infarcted bowel s/p segmental terminal ileum resection with primary anastomosis on 03/2018 requiring pressor support, intubation, PEG tube, cholecystostomy tube and ICU for sepsis, and recent repair of LIH on 07/24/2018, p/w 1 day of urinary retention and scrotal swelling. swelling/possible fluid collection likely 2/2 to recent repair of LIH on 2017. less likely bowel/hernia -CBC, CMP -scrotal US to r/o collection, hernia, no tenderness -will place quintero -UA to r/o UTI 07/26/18 18:48 quintero placed, drain 500cc clear urine. pt feeling better CBC shows leukocytosis, H/H stable UA neg U/S shows scrotal swelling, b/l hydrocele, and possible L epidydmitis. no torsion pt should f/u w/ PCP, urology ([facility]) and Dr Fox pt on abx from surgery. 07/26/18 19:32 Spoke w/ Dr. Fox and Dr. Trent. pt will go home w/ quintero and f/u w/ urology on friday07/28/18 pt is stable and ready for dc to home *DC/Admit/Observation/Transfer Diagnosis at time of Disposition: Epididymal cyst, Epididymitis BPH (benign prostatic hyperplasia) Qualifiers: Lower urinary tract symptom presence: symptoms present Lower urinary tract symptom detail: urinary retention Qualified Code(s): N40.1 - Benign prostatic hyperplasia with lower urinary tract symptoms - Discharge Dispostion Disposition: HOME Condition at time of disposition: Improved Decision to Admit order: No - Referrals Referrals: Ranjith Trent MD [Staff Physician] - 07/28/18 Manpreet Fox MD [Staff Physician] - 1 week Janie Rolle MD [Non Staff, Medical] - 1 week - Patient Instructions Printed Discharge Instructions: How to Care for Your Quintero Catheter -- Male Additional Instructions: You came in for scrotal swelling and inability to pee We put in a qiuntero catheter which helped you pee. We will send you home with the quintero. We have provided you with instructions for taking care of the quintero. Please follow up with Dr. Hunter on friday07/28/18 for quintero removal You may have epididymitis . Please continue with the antibiotics you have been taking since your surgery. Please continue with your home meds. Please follow up with Dr. Fox in 1 week Please follow up with your primary care physician in 1 week If you experience inability to pee, fevers, chills, chest pain, abdominal pain, shortness of breath, nausea, vomiting, diarrhea, blood in urine, blood in stools , please call 911 or come back to the ER. - Post Discharge Activity
[2018-07-26 16:50] LABS: BASO % 0.2 % (0-2.0); HEMOGLOBIN 14.7 GM/dL (11.7-16.9); LYMPH % 6.1 % (8-40); MCH 29.8 pg (25.7-33.7); MCHC 33.4 g/dl (32.0-35.9); MEAN PLT VOLUME 8.4 fl (7.5-11.1); MONO % 8.4 % (3.8-10.2); NEUT % 85.3 % (42.8-82.8); PLATELET COUNT 215 K/MM3 (134-434); RBC 4.94 M/mm3 (4.00-5.60); RDW 13.5 % (11.9-15.9); WHITE BLOOD COUNT 16.4 K/mm3 (4.0-10.0)
[2018-07-26 17:15] LABS: ALBUMIN 3.1 g/dl (3.4-5.0); ALK PHOS 89 U/L (45-117); ANION GAP 7 MMOL/L (8-16); BILIRUBIN,TOTAL 1.2 mg/dL (0.2-1); BLOOD UREA NITROGEN 18 mg/dL (7-18); CALCIUM 8.9 mg/dL (8.5-10.1); CHLORIDE 101 mmol/L (98-107); CO2 28 mmol/L (21-32); CREATININE 0.7 mg/dL (0.55-1.3); GLUCOSE,RANDOM 126 mg/dL (74-106); POTASSIUM 4.6 mmol/L (3.5-5.1); SGOT/AST 22 U/L (15-37); SGPT/ALT 21 U/L (13-61); SODIUM 135 mmol/L (136-145); TOT PROT 6.5 g/dl (6.4-8.2)
[2018-07-26 17:38] LABS: URINE APPEARANCE CLEAR; URINE BILIRUBIN NEGATIVE (<2.0 mg/dL); URINE COLOR YELLOW; URINE GLUCOSE (UA) NEGATIVE (NEGATIVE); URINE KETONE NEGATIVE (NEGATIVE); URINE LEUK ESTERASE NEGATIVE (NEGATIVE); URINE NITRITE NEGATIVE (NEGATIVE); URINE PROTEIN NEGATIVE (NEGATIVE); URINE UROBILINOGEN NEGATIVE mg/dL (0.2-1.0)
--- NOTE | 2018-07-26 19:26 | PDOC ---
*Physical Exam - Vital Signs Last Vital Signs Temp Pulse Resp BP Pulse Ox 99.6 F 94 H 18 142/69 94 L 07/26/18 18:14 07/26/18 18:14 07/26/18 18:14 07/26/18 18:14 07/26/18 18:14 ED Treatment Course - LABORATORY CBC & Chemistry Diagram: 07/26/18 16:40 07/26/18 16:40 - ADDITIONAL ORDERS Additional order review: Laboratory Results 07/26/18 07/26/18 16:50 16:40 Sodium 135 L Potassium 4.6 Chloride 101 Carbon Dioxide 28 Anion Gap 7 L BUN 18 Creatinine 0.7 Creat Clearance w eGFR > 60 Random Glucose 126 H Calcium 8.9 Total Bilirubin 1.2 H AST 22 ALT 21 Alkaline Phosphatase 89 Total Protein 6.5 Albumin 3.1 L Urine Color Yellow Urine Appearance Clear Urine pH 6.0 Ur Specific [place] 1.016 Urine Protein Negative Urine Glucose (UA) Negative Urine Ketones Negative Urine Blood Negative Urine Nitrite Negative Urine Bilirubin Negative Urine Urobilinogen Negative Ur Leukocyte Esterase Negative 07/26/18 16:40 RBC 4.94 MCV 89.0 MCHC 33.4 RDW 13.5 MPV 8.4 Neutrophils % 85.3 H D Lymphocytes % 6.1 L D Monocytes % 8.4 Eosinophils % 0.0 D Basophils % 0.2 Medical Decision Making - Medical Decision Making 07/26/18 19:24 UA is negative scrotal US mild epidydmitis pt 's urologist is Dr Prasad and he will follow up with him pt already on 2 antibiotics *DC/Admit/Observation/Transfer Diagnosis at time of Disposition: Epididymal cyst, Epididymitis BPH (benign prostatic hyperplasia) Qualifiers: Lower urinary tract symptom presence: symptoms present Lower urinary tract symptom detail: urinary retention Qualified Code(s): N40.1 - Benign prostatic hyperplasia with lower urinary tract symptoms - Discharge Dispostion Disposition: HOME Condition at time of disposition: Improved - Referrals - Patient Instructions Additional Instructions: You came in for scrotal swelling and inability to pee We put in a quintero catheter which helped you pee. We will send you home with the quintero. We have provided you with instructions for taking care of the quintero. Please make an appointment with a urologist within 1 week You may have an infection in your testicles. We will prescribe you antibiotics. Please follow up with Dr. Fox in 1 week Please follow up with your primary care physician in 1 week If you experience inability to pee, fevers, chills, chest pain, abdominal pain, shortness of breath, nausea, vomiting, diarrhea, blood in urine, blood in stools , please call 911 or come back to the ER. - Post Discharge Activity
[2018-07-26 20:33] VITALS: BP 140/76; PULSE 88; TEMP 98.4
== END 2018-07-26 20:33 | disposition home or self-care (01) ==
LOC: JER 14:57
PROC: 0T9B70Z Drainage of Bladder with Drainage Device, Via Natural or Artificial Opening (ICD-10-PCS; principal; 2018-07-26)
DX: N40.1 Benign prostatic hyperplasia with lower urinary tract symptoms (principal); R33.8 Other retention of urine; I48.91 Unspecified atrial fibrillation; Z79.01 Long term (current) use of anticoagulants; M50.30 Other cervical disc degeneration, unspecified cervical region; K21.9 Gastro-esophageal reflux disease without esophagitis; Z87.19 Personal history of other diseases of the digestive system
CPT/HCPCS: 36415; 51702; 76870-TC; 80053; 81003; 85025; 99284-25

== ENCOUNTER 2019-06-02 08:13 | Day surgery (SDC) | payer OTHER, BC | END 2019-06-02 10:54 | disposition home or self-care (01) | LOC: JASU-ENDO 08:13 ==

== ENCOUNTER 2019-08-23 12:06 | Inpatient (IN) | payer OTHER, BC ==
--- NOTE | 2019-08-23 13:53 | PDOC ---
History of Present Illness - General Chief Complaint: Urinary Problem Stated Complaint: STOMACH PAIN Time Seen by Provider: 08/23/19 13:20 - History of Present Illness Initial Comments: Mr. Guido is a 83 y/o male with hx of a-fib, BPH, inguinal hernia, presenting today with difficulty urinating and retention, diffuse suprapubic abdominal pain , nausea w/o vomiting, and penile and scrotal pain that started this morning. Reports that he started seeing a urologist for BPH. This is the first time that he has had urination retention and difficulty urinating. Denies purulent or bloody discharge from the penis. Denies hx of STIs. Is not sexually active. Denies fever, chills, chest pain, shortness of breath, back pain. Past History - Past Medical History Allergies/Adverse Reactions: Allergies Allergy/AdvReac Type Severity Reaction Status Date / Time Fish Containing Products Allergy Verified 08/23/19 12:26 No Known Drug Allergies Allergy Verified 08/23/19 12:26 Home Medications: Ambulatory Orders Finasteride 5 mg PO DAILY 03/12/18 Tamsulosin HCl 0.4 mg PO DAILY 03/12/18 Apixaban [Eliquis -] 5 mg PO BID #0 tablet 07/24/18 Mag Carb/Aluminum Hydrox/Algin [Gaviscon Liquid] 30 ml PO PRN PRN #0 oral.susp 06/02/19 Pantoprazole Sodium 40 mg PO DAILY 06/02/19 Ranitidine HCl 150 mg PO BID #180 tablet 06/02/19 Ranitidine [Zantac -] 150 mg PO BID #1 tablet 06/02/19 Anemia: No Asthma: No Cancer: No Cardiac Disorders: Yes (afib) CVA: No COPD: No CHF: No Dementia: No Diabetes: No GI Disorders: Yes (acid reflux) Disorders: Yes (bph) HTN: No Hypercholesterolemia: No Liver Disease: No Seizures: No Thyroid Disease: No - Surgical History Abdominal Surgery: Yes (Umbilical hernia repair) Cholecystectomy: No - Psycho Social/Smoking Cessation Hx Smoking History: Never smoked Have you smoked in the past 12 months: No Hx Alcohol Use: No Drug/Substance Use Hx: No Substance Use Type: None Hx Substance Use Treatment: No Review of Systems - Review of Systems Comments:: GENERAL/CONSTITUTIONAL: No fever or chills. No weakness._ HEAD, EYES, EARS, NOSE AND THROAT: No change in vision. No change in hearing. No sore throat._ CARDIOVASCULAR: No chest pain or shortness of breath_ RESPIRATORY: Denies cough, hemoptysis_ GASTROINTESTINAL: Reports suprapubic abdominal pain. No nausea, vomiting, diarrhea or constipation._ GENITOURINARY: No dysuria. Reports frequency and urinary retention. Reports mild penile and testicular pain. Denies purulent or bloody discharge from the penis. MUSCULOSKELETAL: No joint or muscle swelling or pain. No neck or back pain._ SKIN: No rash_ NEUROLOGIC: No headache, vertigo, loss of consciousness, or change in strength/ sensation._ ENDOCRINE: No increased thirst. No abnormal weight change_ HEMATOLOGIC/LYMPHATIC: No anemia, easy bleeding, or history of blood clots._ ALLERGIC/IMMUNOLOGIC: No hives or skin allergy._ *Physical Exam - Vital Signs Last Vital Signs Temp Pulse Resp BP Pulse Ox 97.2 F L 64 16 133/69 95 08/23/19 12:28 08/23/19 12:28 08/23/19 12:28 08/23/19 12:28 08/23/19 12:28 - Physical Exam Comments: GENERAL: Awake, alert, and oriented to person/place/time, in no acute distress_ HEAD: No signs of trauma, normocephalic, atraumatic _ EYES: PERRLA, EOMI, sclera anicteric, conjunctiva clear_ ENT: Hearing grossly normal, nares patent, oropharynx clear without exudates. No uvular deviation. Moist mucosa_ NECK: Normal ROM, supple, no lymphadenopathy, JVD, or masses_ LUNGS: No distress, speaks in full sentences, clear to auscultation bilaterally _ HEART: Regular rate and rhythm, normal S1 and S2, no murmurs appreciated, peripheral pulses normal and equal bilaterally._ ABDOMEN: Soft, diffuse TTP over suprapubic area. No guarding, no rebound. No masses_ : Right inguinal hernia with small bulge into scrotum. No overlying skin changes. Genital exam shows circumcised penis. No penile lesions. No discharge from the penis. No erythema over penis or scrotum. Testes mildly tender to touch. No color changes. Cremasteric reflex intact bilaterally. EXTREMITIES: Normal inspection, Normal range of motion, no edema. No clubbing or cyanosis_ NEUROLOGICAL: Cranial nerves II through XII grossly intact. Normal speech, normal gait, no focal sensorimotor deficits _ SKIN: Warm, Dry, normal turgor, no rashes or lesions noted_ ED Treatment Course - LABORATORY CBC & Chemistry Diagram: 08/23/19 14:20 08/23/19 14:20 Medical Decision Making - Medical Decision Making 83M hx of BPH and inguinal hernia presenting with urinary retention and penile pain that started today. DDx is very broad includes incarcerated vs strangulated hernia vs urinary retention vs epididymitis vs r/o torsion vs r/o fourniere's gangrene -UA/UC -CBC, CMP -bladder US 08/23/19 1430 EKG shows 61 bpm, 1st degree AV block, no ST elevation/depression, QTc 444. 08/23/19 14:32 Patient reports mild improvement of pain with urination. POCUS renal shows < 50 cc urine in the bladder, no signs of hydronephrosis bilaterally -CT abd/pelv w PO contrast -scrotal US -Dr. Fox (surgery) consulted for right inguinal hernia 08/23/19 16:41 Labs reviewed and wnl. D/w Dr. Garza who agrees to accept the patient for admission. Plan for OR with Dr. Fox at 6pm. 08/23/[address] abd/pelv shows right inguinal hernia. Hernia sac and free fluid in sac appears to be increased. Radiopaque gallbladder calculi noted. Moderate colonic fecal retention. Scrotal US does not show doppler evidence of testicular torsion. Hypoechoic lesion 0.6x0.4 cm in right testis which is also noted on prior scrotal US. Small to moderate bilateral hydroceles, which were also apparent on prior scna. Possible signs of acute vs chronic epididymitis. Discharge - Discharge Information Problems reviewed: Yes Clinical Impression/Diagnosis: Scrotal pain Abdominal pain Qualifiers: Abdominal location: lower abdomen, unspecified Qualified Code(s): R10.30 - Lower abdominal pain, unspecified Condition: Stable - Admission Yes - Follow up/Referral - Patient Discharge Instructions - Post Discharge Activity
[2019-08-23] MEDS ORDERED: SODIUM CHLORIDE 0.9% 1000 ML INFUS.BAG IV ONE (14:47)
--- NOTE | 2019-08-23 15:01 | CONSULT ---
Consult Consult Specialty:: General Surgery Reason for Consultation:: incarcerated right inguinal hernia - History of Present Illness Chief Complaint: right groin pain History of Present Illness: 82 y/o man from [facility] with a PMHx Acid Reflux, BPH, Incarcerated Hernia, Cholelithiasis, Cholecystoscopy. Recent PEG placement. Who presents to the ED for chills and shakiness, and possible tube dysfunction. Patient is alert to name, place, unable to provide HPI for past or present condition or procedures. Per ED record: The patients family reports that his cholecystectomy tube was placed by KAREN-Dr. Martines. The patient was sent from [facility] due to increased concern for infection. s/p left inguinal hernia repair no with incarcerated Right inguinal hernia. we were called to assess. 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 History of Recent Travel: No Home Medications - Allergies Allergies/Adverse Reactions: Allergies Allergy/AdvReac Type Severity Reaction Status Date / Time Fish Containing Products Allergy Verified 08/23/19 12:26 No Known Drug Allergies Allergy Verified 08/23/19 12:26 - Home Medications Home Medications: Ambulatory Orders Finasteride 5 mg PO DAILY 03/12/18 Tamsulosin HCl 0.4 mg PO DAILY 03/12/18 Apixaban [Eliquis -] 5 mg PO BID #0 tablet 07/24/18 Mag Carb/Aluminum Hydrox/Algin [Gaviscon Liquid] 30 ml PO PRN PRN #0 oral.susp 06/02/19 Pantoprazole Sodium 40 mg PO DAILY 06/02/19 Ranitidine HCl 150 mg PO BID #180 tablet 06/02/19 Ranitidine [Zantac -] 150 mg PO BID #1 tablet 06/02/19 Family Medical History Family History: Denies Review of Systems - Review of Systems Constitutional: denies: Chills, Fever Eyes: denies: Blind Spots, Recent Change in Vision HENT: denies: Difficult Swallowing, Throat Pain Neck: denies: Pain on Movement, Tenderness Cardiovascular: denies: Chest Pain, Palpitations Respiratory: denies: Cough, SOB Gastrointestinal: denies: Abdominal Pain, Constipation, Diarrhea Genitourinary: denies: Discharge, Dysuria Breasts: reports: No Symptoms Reported. denies: Pain Musculoskeletal: denies: Muscle Pain, Muscle Weakness Integumentary: denies: Lesions, Rash Neurological: denies: Seizure, Syncope Endocrine: denies: Unexplained Weight Gain, Unexplained Weight Loss Hematology/Lymphatic: denies: Easily Bruised, Excessive Bleeding Psychiatric: denies: Anxiety, Depression Physical Exam Vital Signs: Vital Signs Temperature 97.2 F L 08/23/19 12:28 Pulse Rate 64 08/23/19 12:28 Respiratory Rate 16 08/23/19 12:28 Blood Pressure 133/69 08/23/19 12:28 O2 Sat by Pulse Oximetry (%) 95 08/23/19 12:28 Constitutional: Yes: Well Nourished, No Distress, Calm Eyes: Yes: Conjunctiva Clear, EOM Intact HENT: Yes: Atraumatic, Normocephalic Neck: Yes: Supple, Trachea Midline Cardiovascular: Yes: Regular Rate and Rhythm, S1, S2 Respiratory: Yes: Regular, CTA Bilaterally Gastrointestinal: Yes: Normal Bowel Sounds, Soft, Hernia (non-reducible right inguinal hernia) ...Rectal Exam: Yes: Hemorrhoids/Internal, Sphincter Tone Normal Renal/: Yes: Scrotal Edema (right). No: CVA Tenderness - Left, CVA Tenderness - Right Breast(s): No: Skin Changes Extremities: No: Cool, Cyanosis Edema: No Peripheral Pulses WNL: Yes Integumentary: No: Jaundice, Rash Neurological: Yes: Alert, Oriented Psychiatric: Yes: Alert, Oriented Imaging - Results Cat Scan: Report Reviewed, Image Reviewed Problem List - Problems (1) Incarcerated right inguinal hernia Assessment/Plan: 83yo male with mmp s/p LIH repair with mesh, presents now with acutely incarcerated LIH NPO and IVF hydration IV antibiotics OR for emergency Right inguinal hernia repair with mesh, possile bowel ressection Discussed with patient risks, benefits and alternatives of aforemention procedure, including but not limited to bleeding, infection, injury to adjacent structures, leak or injury, intraabdominal abscess, incisional hernia, need for further procedures, ; alternatives include antibiotics, delayed or no surgery - risks of this include failure of nonoperative therapy, perforation, sepsis, recurrence, . Patient desires to proceed with operation - will take to OR for above. Informed consent signed for same. Thank you for the opportunity to participate in the care of this patient. Problems reviewed: Yes Code(s): K40.30 - UNIL INGUINAL HERNIA, W OBST, W/O GANGR, NOT SPCF RECUR (2) Afib Code(s): I48.91 - UNSPECIFIED ATRIAL FIBRILLATION Qualifiers: Atrial fibrillation type: longstanding persistent Qualified Code(s): I48.11 - Longstanding persistent atrial fibrillation (3) Incarcerated left inguinal hernia Problems reviewed: Yes Code(s): K40.30 - UNIL INGUINAL HERNIA, W OBST, W/O GANGR, NOT SPCF RECUR (4) BPH (benign prostatic hyperplasia) Problems reviewed: Yes Code(s): N40.0 - BENIGN PROSTATIC HYPERPLASIA WITHOUT LOWER URINRY TRACT SYMP Qualifiers: Lower urinary tract symptom presence: symptoms present Lower urinary tract symptom detail: urinary retention Qualified Code(s): N40.1 - Benign prostatic hyperplasia with lower urinary tract symptoms; R33.8 - Other retention of urine
--- NOTE | 2019-08-23 15:05 | PDOC ---
Documentation entered by Domonique Phelan SCRIBE, acting as scribe for Leona Watkins DO. Leona Watkins DO: This documentation has been prepared by the Tapan lund Sammi, SCRIBE, under my direction and personally reviewed by me in its entirety. I confirm that the documentation accurately reflects all work, treatment, procedures, and medical decision making performed by me. Attending Attestation - Resident Resident Name: MoniqueRuel - ED Attending Attestation I have performed the following: I have examined & evaluated the patient, The case was reviewed & discussed with the resident, I agree w/resident's findings & plan, Exceptions are as noted - HPI HPI: 08/23/19 15:08 The patient is an 83 year old male who presents to the emergency department for evaluation of 1 day of urinary retention and frequency with penile and abdominal pain. He notes nausea and vomiting and a last bowel movement yesterday. Urologist: Dr. Michael Tran ([facility]) ] - Physicial Exam PE: 08/23/19 15:08 GENERAL: Awake, alert, and fully oriented, in no acute distress NECK: Normal ROM, supple, no lymphadenopathy, JVD, or masses LUNGS: Breath sounds equal, clear to auscultation bilaterally. No wheezes, and no crackles HEART: Regular rate and rhythm, normal S1 and S2, no murmurs, rubs or gallops ABDOMEN: +midline well healed incision, proximal end reproducible hernia. Soft, nontender. No guarding, no rebound. : +right inguinal canal bulge, little bulge into scrotal sac with some soft tissue swelling and tenderness. EXTREMITIES: Normal range of motion, no edema or tenderness. NEUROLOGICAL: Cranial nerves II through XII grossly intact. Normal speech, normal gait SKIN: Warm, Dry, normal turgor, no rashes or lesions noted. - Medical Decision Making 08/23/19 15:01 I, Dr. Leona Watkins DO, attest that this document has been prepared under my direction and personally reviewed by me in its entirety. I further attest, that it accurately reflects all work, treatment, procedures and medical decision -making performed by me. a/p: 83yo male with abd pain, n/v today - last bm yesterday -abd pain, feels full in lower abd -denies dysuria, c/o penile and scrotal pain -no rashes -hx of epididymitis -past hernia repair by Dr. Fox -will send labs, testicular ultrasound, ua, ct abd/pelvis with contrast -will monitor and reassess 08/23/19 15:05 dr fox at the bedside agrees with CT scan 08/23/19 16:00 ua neg no elevated wbc dr. fox states pt going OR at 6p call placed to [facility] for admission 08/23/19 16:[address] jon garza - call placed to Dr. Garza 08/23/19 16:[address] Garza who accepts pt to service Discharge - Discharge Information Problems reviewed: Yes Clinical Impression/Diagnosis: Abdominal pain, Scrotal pain Condition: Guarded - Admission Yes - Follow up/Referral - Patient Discharge Instructions - Post Discharge Activity Heart Score/ECG Review - ECG Intrepretation Comment:: 08/23/19 15:05 sinus at 61, 1st degree av block, nl axis, no acute st/t wave findings
[2019-08-23 15:48] LABS: BASO % 0.4 % (0-2.0); EOS % 2.1 % (0-4.5); HEMOGLOBIN 16.7 GM/dL (11.7-16.9); LYMPH % 17.6 % (8-40); MCH 30.7 pg (25.7-33.7); MCHC 33.4 g/dl (32.0-35.9); MEAN CELL VOLUME 91.9 fl (80-96); MEAN PLT VOLUME 10.2 fl (7.5-11.1); MONO % 7.5 % (3.8-10.2); NEUT % 72.4 % (42.8-82.8); PLATELET COUNT 218 K/MM3 (134-434); RBC 5.45 M/mm3 (4.00-5.60); RDW 13.3 % (11.9-15.9); WHITE BLOOD COUNT 8.4 K/mm3 (4.0-10.0)
[2019-08-23 15:50] LABS: URINE APPEARANCE CLEAR; URINE BILIRUBIN NEGATIVE (NEGATIVE); URINE COLOR YELLOW; URINE GLUCOSE (UA) NEGATIVE (NEGATIVE); URINE KETONE NEGATIVE (NEGATIVE); URINE LEUK ESTERASE NEGATIVE (NEGATIVE); URINE NITRITE NEGATIVE (NEGATIVE); URINE PROTEIN NEGATIVE (NEGATIVE); URINE UROBILINOGEN 0.2 mg/dL (0.2-1.0)
[2019-08-23 16:19] LABS: ALBUMIN 3.8 g/dl (3.4-5.0); BILIRUBIN,TOTAL 0.9 mg/dL (0.2-1); BLOOD UREA NITROGEN 16.9 mg/dL (7-18); CREATININE 0.8 mg/dL (0.55-1.3); POTASSIUM 4.6 mmol/L (3.5-5.1)
[2019-08-23] MEDS ORDERED: LACTATED RINGERS SOLUTION 1000 ML INFUS.BAG IV ONE (16:26)
[2019-08-23 16:27] LABS: INR 1.13 (0.83-1.09); PROTHROMBIN TIME (PATIENT) 13.3 SEC (9.7-13.0)
[2019-08-23 16:29] LABS: ACTIVATED PTT 35.4 SECONDS (25.2-36.5)
[2019-08-23] MEDS ORDERED: LACTATED RINGERS SOLUTION 1,000 ML/1,000 ML INFUS.BAG IV SCH (16:30)
--- NOTE | 2019-08-23 17:18 | OP ---
Operative Note - Note: Operative Date: 08/23/19 Pre-Operative Diagnosis: incarcerted right inguinal hernia Operation: repair or right inguinal hernia with mesh Implants: BARD 2"X4" hernia mesh Post-Operative Diagnosis: Same as Pre-op Surgeon: Manpreet Fox Anesthesiologist/WARRANTY ADMINISTRATOR: Almas Kim Anesthesia: General, Local (0.5% marcaine 20ml) Specimens Removed: hernia sac right, cord lipoma right Estimated Blood Loss (mls): 10 Drains & Tubes with Location: right groin LEIF size 10 flat Drains, Volume Out (mls): 200 (quintero (removed) ) Fluid Volume Replaced (mls): 800 Operative Report Dictated: Yes
[2019-08-23] MEDS ORDERED: ceFAZolin 2 GRAM PREMIX BAG IVPB ONE (18:00)
[2019-08-23] MEDS ORDERED: ROCURONIUM BROMIDE 50 MG/5 ML SYRINGE ONE (23:15)
[2019-08-23] MEDS ORDERED: PROPOFOL 20 ML ONE (23:15)
[2019-08-23] MEDS ORDERED: SUCCINYLCHOLINE CHLORIDE 200 MG/10 ML SYRINGE ONE (23:16)
[2019-08-23] MEDS ORDERED: ONDANSETRON 4 MG/2 ML VIAL IVPUSH PRN (23:25)
[2019-08-23] MEDS ORDERED: LACTATED RINGERS SOLUTION 1,000 ML IV SCH (23:30)
[2019-08-23] MEDS ORDERED: ceFAZolin SODIUM 1 GM VIAL ONE (23:37)
[2019-08-23] MEDS ORDERED: ceFAZolin SODIUM 1 GM VIAL IVPB ONE (23:39)
[2019-08-24] MEDS ORDERED: GLYCOPYRROLATE 0.2 MG/1 ML VIAL ONE ×2
[2019-08-24] MEDS ORDERED: NEOSTIGMINE METHYLSULFATE 0.5 MG/ML - 10 ML MDV ONE
[2019-08-24] MEDS ORDERED: BUPIVACAINE HCL/PF 0.5% (5 MG/ML) 30 ML VIAL IJ ONE ×2 (00:23→00:25)
[2019-08-24] MEDS ORDERED: ONDANSETRON 4 MG/2 ML VIAL IVPUSH PRN ×2 (00:47→01:04)
[2019-08-24] MEDS ORDERED: MORPHINE SULFATE 2 MG/ML VIAL IVPUSH ONE (00:49)
[2019-08-24] MEDS ORDERED: IBUPROFEN 600 MG TABLET (FP) PO PRN (00:50)
[2019-08-24] MEDS ORDERED: ACETAMINOPHEN 325 MG TABLET (FP) PO PRN ×2 (00:50→01:04)
[2019-08-24] MEDS ORDERED: D5-1/2NS+20 MEQ KCL - 20 MEQ/1,000 ML INFUS.BAG IV SCH ×2 (01:00→01:04)
[2019-08-24] MEDS: DEXTROSE 5%-0.45% SALINE 1,000 ML IV SCH ×2 (01:17→21:01)
[2019-08-24] MEDS ORDERED: CEFAZOLIN 1 GM/D5W 1 GM/50 ML BAG IVPB SCH (02:00)
[2019-08-24 02:48] VITALS: BMI 25.2
[2019-08-24] MEDS: CEFAZOLIN 1 GM/D5W 1 GM/50 ML BAG IVPB SCH ×3 (03:20→17:17)
--- NOTE | 2019-08-24 05:43 | PN ---
Progress Note, Physician Chief Complaint: right groin pain History of Present Illness: 82 y/o male PMH BPH, Incarcerated left inguinal Hernia, presented with acute incarceration of the right side. He was taken for urgent operative repair and has been stable during the post operative period. no complaints this morning. - Current Medication List Current Medications: Active Medications Acetaminophen (Tylenol -) 650 mg PO Q6H PRN PRN Reason: PAIN LEVEL 1-5 Last Admin: 08/24/19 03:28 Dose: 650 mg Cefazolin Sodium (Ancef 1 Gm Premixed Ivpb -) 1 gm in 50 mls @ 100 mls/hr IVPB Q8H-IV JUDY Last Admin: 08/24/19 03:20 Dose: 100 mls/hr Dextrose/Sodium Chloride (D5-1/2ns -) 1,000 mls @ 100 mls/hr IV ASDIR JUDY Last Admin: 08/24/19 01:17 Dose: 50 mls Ibuprofen (Motrin -) 600 mg PO Q6H PRN PRN Reason: PAIN LEVEL 1-5 Ondansetron HCl (Zofran Injection) 4 mg IVPUSH Q8H PRN PRN Reason: NAUSEA - Objective Vital Signs: Vital Signs Temperature 97.4 F L 08/24/19 02:33 Pulse Rate 65 08/24/19 02:33 Respiratory Rate 18 08/24/19 02:33 Blood Pressure 127/72 08/24/19 02:33 O2 Sat by Pulse Oximetry (%) 97 08/24/19 02:33 Constitutional: Yes: Well Nourished, No Distress, Calm Eyes: Yes: Conjunctiva Clear, EOM Intact HENT: Yes: Atraumatic, Normocephalic Neck: Yes: Supple, Trachea Midline Cardiovascular: Yes: Regular Rate and Rhythm, S1, S2 Respiratory: Yes: Regular, CTA Bilaterally Gastrointestinal: Yes: Normal Bowel Sounds, Soft, Hernia ...Rectal Exam: Yes: Deferred Genitourinary: No: CVA Tenderness - Left, CVA Tenderness - Right Musculoskeletal: No: Muscle Pain, Muscle Weakness Extremities: No: Cool, Cyanosis Edema: No Peripheral Pulses WNL: Yes Peripheral Pulses: Left Radial: 2+, Right Radial: 2+, Left Doralis Pedis: 2+, Right Dorsalis Pedis: 2+, Left Femoral: 2+, Right Femoral: 2+ Wound/Incision: Yes: Clean/Dry, Well Approximated, Dressing Dry and Intact Neurological: Yes: Alert, Oriented Psychiatric: Yes: Alert, Oriented Labs: CBC, BMP 08/23/19 14:20 08/23/19 14:20 INR, PTT INR 1.13 (0.83-1.09) H 08/23/19 16:05 Problem List - Problems (1) Incarcerated right inguinal hernia Assessment/Plan: 83yo male with mmp s/p LIH repair with mesh, presents now with acutely incarcerated LIH POD#1 s/p RIH repair with mesh diet as tolerated IVF hydration IV antibiotics PT evaluation OOB and ambulate discuss continuing eloquis or not discharge at discretion of primary team Problems reviewed: Yes Code(s): K40.30 - UNIL INGUINAL HERNIA, W OBST, W/O GANGR, NOT SPCF RECUR (2) Afib Problems reviewed: Yes Code(s): I48.91 - UNSPECIFIED ATRIAL FIBRILLATION Qualifiers: Atrial fibrillation type: longstanding persistent Qualified Code(s): I48.11 - Longstanding persistent atrial fibrillation (3) Incarcerated left inguinal hernia Problems reviewed: Yes Code(s): K40.30 - UNIL INGUINAL HERNIA, W OBST, W/O GANGR, NOT SPCF RECUR (4) BPH (benign prostatic hyperplasia) Problems reviewed: Yes Code(s): N40.0 - BENIGN PROSTATIC HYPERPLASIA WITHOUT LOWER URINRY TRACT SYMP Qualifiers: Lower urinary tract symptom presence: symptoms present Lower urinary tract symptom detail: urinary retention Qualified Code(s): N40.1 - Benign prostatic hyperplasia with lower urinary tract symptoms; R33.8 - Other retention of urine
[2019-08-24] MEDS: IBUPROFEN 600 MG TABLET (FP) PO PRN (10:21)
--- NOTE | 2019-08-24 10:58 | PN ---
Progress Note (short form) - Note Progress Note: Anesthesia Post Op Note Pt awake alert, comfortable in bed Pt denies n/v, no puritis, denies urinary retention Pt ambulating well and reports good pain control VSS no apparent anesthesia complications Weston León.
--- NOTE | 2019-08-24 11:06 | EKG ---
Test Reason : Blood Pressure : / mmHG Vent. Rate : 061 BPM Atrial Rate : 061 BPM P-R Int : 218 ms QRS Dur : 082 ms QT Int : 442 ms P-R-T Axes : 014 000 044 degrees QTc Int : 444 ms SINUS RHYTHM WITH 1ST DEGREE A-V BLOCK OTHERWISE NORMAL ECG WHEN COMPARED WITH ECG OF 21-APR-2018 19:12, HI INTERVAL HAS INCREASED Confirmed by Ruel Rodriguez MD ([id number]) on 08/24/2019 11:05:30 AM Referred By: Confirmed By:Ruel Rodriguez MD
--- NOTE | 2019-08-24 11:16 | HP ---
Admitting History and Physical - Primary Care Physician PCP: Brady Garza - Admission Chief Complaint: pain in rt groin History of Present Illness: ER HISTORY - History of Present Illness Initial Comments: Mr. Guido is a 83 y/o male with hx of a-fib, BPH, inguinal hernia, presenting today with difficulty urinating and retention, diffuse suprapubic abdominal pain , nausea w/o vomiting, and penile and scrotal pain that started this morning. Reports that he started seeing a urologist for BPH. This is the first time that he has had urination retention and difficulty urinating. Denies purulent or bloody discharge from the penis. Denies hx of STIs. Is not sexually active. Denies fever, chills, chest pain, shortness of breath, back pain. Pt examined on the floors Underwent repair incarcerated inguinal hernia right yesterday Pt currently has pain in right groin-- not too severe Had liquids today -- tolerated fine History Source: Patient Limitations to Obtaining History: No Limitations - Past Medical History Cardiovascular: Yes: AFIB Renal/: Yes: BPH Musculoskeletal: Yes: Osteoarthritis - Past Surgical History Past Surgical History: Yes: Hernia Repair (umbilcal?) - Smoking History Smoking history: Never smoked Have you smoked in the past 12 months: No - Alcohol/Substance Use Hx Alcohol Use: No History of Substance Use: reports: None - Social History 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 History of Recent Travel: No Home Medications - Allergies Allergies/Adverse Reactions: Allergies Allergy/AdvReac Type Severity Reaction Status Date / Time Fish Containing Products Allergy Verified 08/23/19 12:26 No Known Drug Allergies Allergy Verified 08/23/19 12:26 - Home Medications Home Medications: Ambulatory Orders Finasteride 5 mg PO DAILY 03/12/18 Tamsulosin HCl 0.4 mg PO DAILY 03/12/18 Apixaban [Eliquis -] 5 mg PO BID #0 tablet 07/24/18 Mag Carb/Aluminum Hydrox/Algin [Gaviscon Liquid] 30 ml PO PRN PRN #0 oral.susp 06/02/19 Pantoprazole Sodium 40 mg PO DAILY 06/02/19 Ranitidine HCl 150 mg PO BID #180 tablet 06/02/19 Ranitidine [Zantac -] 150 mg PO BID #1 tablet 06/02/19 Review of Systems - Review of Systems Constitutional: denies: Chills, Fever Cardiovascular: denies: Chest Pain Genitourinary: denies: Burning, Discharge, Dysuria, Frequency Physical Examination Vital Signs: Vital Signs Temperature 97.8 F 08/24/19 06:33 Pulse Rate 84 08/24/19 06:33 Respiratory Rate 18 08/24/19 06:33 Blood Pressure 116/69 08/24/19 06:33 O2 Sat by Pulse Oximetry (%) 97 08/24/19 02:33 Constitutional: Yes: No Distress, Calm Cardiovascular: Yes: Regular Rate and Rhythm Respiratory: Yes: CTA Bilaterally Gastrointestinal: Yes: Normal Bowel Sounds, Soft. No: Tenderness Renal/: Yes: Other (right groin-- dressing , drain+) Edema: No Labs: CBC, BMP 08/23/19 14:20 08/23/19 14:20 Imaging - Results Cat Scan: Report Reviewed Ultrasound: Report Reviewed EKG: Image Reviewed Problem List - Problems (1) Incarcerated right inguinal hernia Code(s): K40.30 - UNIL INGUINAL HERNIA, W OBST, W/O GANGR, NOT SPCF RECUR (2) Scrotal pain Code(s): N50.82 - SCROTAL PAIN (3) Afib Code(s): I48.91 - UNSPECIFIED ATRIAL FIBRILLATION Qualifiers: Atrial fibrillation type: longstanding persistent Qualified Code(s): I48.11 - Longstanding persistent atrial fibrillation (4) BPH (benign prostatic hyperplasia) Code(s): N40.0 - BENIGN PROSTATIC HYPERPLASIA WITHOUT LOWER URINRY TRACT SYMP Qualifiers: Lower urinary tract symptom presence: symptoms present Lower urinary tract symptom detail: urinary retention Qualified Code(s): N40.1 - Benign prostatic hyperplasia with lower urinary tract symptoms; R33.8 - Other retention of urine Assessment/Plan PLAN med noted advance diet per surgery restart eliquis continue with pain control OOB daily
--- NOTE | 2019-08-24 12:05 | OP ---
DATE OF OPERATION: 08/23/2019 PREOPERATIVE DIAGNOSIS: Incarcerated right inguinal hernia. POSTOPERATIVE DIAGNOSIS: Incarcerated right inguinal hernia. PROCEDURE: Repair, right inguinal hernia with mesh. ATTENDING SURGEON: Manpreet Fox M.D. STENCIL INSPECTOR: None. ANESTHESIOLOGIST: Almas Kim M.D. ANESTHESIA: General with local. Local consisted of 0.5% Marcaine a total of 20 mL. ESTIMATED BLOOD LOSS: 10 mL INTRAVENOUS FLUID ADMINISTERED: 800 mL IMPLANT: The Bard 2 x 4 inch inguinal hernia mesh. DRAIN: Right groin LEIF size 10 flat. Scott was removed postoperatively. Drained 200 of clear urine. BRIEF FINDINGS: Patient had incarcerated right inguinal direct and indirect hernia, and a cord lipoma. All of these were cleared and reinforced with a mesh. INDICATION: The patient is an 83-year-old male presenting with an acutely incarcerated right inguinal hernia for 1 day. Groin pain as well as nausea and history of a left sided incarceration which required an exploratory laparotomy and subsequent external repair. He was counseled regarding risks, benefits, and alternatives to surgical exploration and repair, signed informed consent and was taken for the procedure. DESCRIPTION OF PROCEDURE: Patient is brought to the operating room, placed in the supine position on the operating table. Lower extremity SCDs placed to compression. Patient was induced under general anesthesia, endotracheally intubated with anesthesia. We began with a clip, prep and drape of the right inguinal region which was confirmed on CAT scan to have acute incarceration. A formal timeout was completed, identifying the operative site and procedure. With all parties in agreement, we began first with a localized incision focused over the right inguinal ligament, medial aspect. It was incised with a 15 blade scalpel, deepened and widening through subcutaneous tissue. Care was taken to dissect down to the external oblique fibers which ran oblique from superior to inferior, lateral to medial. They were incised with a 15 blade scalpel, and then extended with a Metzenbaum scissors. The external oblique fibers were elevated through the external ring, at which point we began first with clearing the external oblique fibers from the underlying transversalis fascia. The spermatic cord structure was then isolated and encircled with a Erika drain. They were elevated and retracted laterally to allow for dissection down to the pubic tubercle. It appeared at this point that there was a direct and indirect component. The indirect component was identified and spermatic cord structures were elevated away from the hernia sac which appeared in the anterior medial position. A spermatic cord lipoma was identified and debrided. The hernia sac was then identified and from the spermatic cord structures. It was reduced after opening its contents to search for incarcerated bowel, which appeared to have automatically reduced. Attempt was made to identify the incarcerated loop which was unsuccessful unfortunately. But there did not appear to be any spillage or contamination of the abdominal cavity. It was irrigated. High ligation of the hernia sac was then done, and the tip of the hernia sac was sent for pathological diagnosis along with the spermatic cord lipoma. The high ligation was then inverted and imbricated with 0 Vicryl in interrupted fashion. After completing this imbrication, we began to repair the hernia defect for the direct. We used 2 x 4 inch mesh which was cut and contoured to shape and then tacked down with 2-0 Prolene stitch, first to the pubic tubercle on the right followed by the inferior aspect of the inguinal ligament, the reflection on the shelving edge. It was tacked with 2-0 interrupted fashion. We then tacked the remaining aspect to the transversalis fascia. We repaired it from medial to lateral, laying in the 2 x 4 inch mesh. Once complete, the area was irrigated, and there appeared to be adequate reinforcement. The spermatic cord structures were taken lateral to the lateral aspect of the mesh which was laid in. We then took our time to reinspect the area, and when the floor was completely reinforced and spermatic cord was lateral, the external oblique fibers were then repaired from lateral to medial, leaving a space in the external oblique for the spermatic cord structure, and the external oblique ring was then recreated. This was done with 0 Vicryl in running fashion. The area was irrigated once again, and then the Sanjay's fascia was repaired with 3-0 Vicryl in interrupted fashion. After completing this repair, a layered repair of the deep dermis was completed. Care was taken at this time to lay in a size 10 flap LEIF given the patient's preoperative use of Eliquis. This was cut to size and contoured after running it through the lateral aspect of the inguinal repair. It was placed to bulb suction after the deep dermis was repaired, and the skin was cleaned and repaired with panda. The patient was awoken from general anesthesia, having tolerated procedure well. Care was taken to place a sterile dressing. The patient was awoken from general anesthesia in stable condition, having tolerated the procedure well. He was returned to recovery in stable condition. MD CONCEPCION Cotton/[id number]
[2019-08-24] MEDS: APIXABAN 5 MG TABLET PO SCH (21:01)
[2019-08-25] MEDS: IBUPROFEN 600 MG TABLET (FP) PO PRN ×2 (00:56→09:19)
[2019-08-25] MEDS: CEFAZOLIN 1 GM/D5W 1 GM/50 ML BAG IVPB SCH ×3 (00:59→21:01)
[2019-08-25] MEDS: DEXTROSE 5%-0.45% SALINE 1,000 ML IV SCH (06:05)
[2019-08-25] MEDS: FINASTERIDE 5 MG TABLET (FP) PO SCH (09:19)
[2019-08-25] MEDS: TAMSULOSIN HCL 0.4 MG CAP PO SCH (09:19)
[2019-08-25] MEDS: APIXABAN 5 MG TABLET PO SCH ×2 (09:19→21:01)
--- NOTE | 2019-08-25 11:18 | PN ---
Progress Note (short form) - Note Progress Note: no distress has mild drainage has pain in right groin Vital Signs - 24 hr 08/24/19 08/24/19 08/24/19 14:01 20:04 21:00 Temperature 97.7 F 94.6 F L Pulse Rate 75 73 Respiratory 18 Rate Blood Pressure 125/64 141/71 O2 Sat by Pulse 97 Oximetry (%) 08/25/19 08/25/19 08/25/19 02:00 09:00 09:20 Temperature 98.2 F 98.0 F Pulse Rate 69 73 Respiratory 18 17 17 Rate Blood Pressure 138/71 139/77 O2 Sat by Pulse 98 Oximetry (%) Current Medications Generic Name Dose Route Start Last Admin Trade Name Freq PRN Reason Stop Dose Admin Acetaminophen 650 mg 08/24/19 01:04 08/24/19 03:28 Tylenol - PO 650 mg Q6H PRN Administration PAIN LEVEL 1-5 Apixaban 5 mg 08/24/19 22:00 08/25/19 09:19 Eliquis - PO 5 mg BID JUDY Administration Finasteride 5 mg 08/25/19 10:00 08/25/19 09:19 Proscar - PO 5 mg DAILY JUDY Administration Cefazolin Sodium 1 gm in 50 mls @ 100 mls/hr 08/24/19 02:00 08/25/19 09:17 Ancef 1 Gm Premixed Ivpb - IVPB 100 mls/hr Q8H-IV JUDY Administration Dextrose/Sodium Chloride 1,000 mls @ 100 mls/hr 08/24/19 01:15 08/25/19 06:05 D5-1/2ns - IV 100 mls/hr ASDIR JUDY Administration Ibuprofen 600 mg 08/24/19 01:04 08/25/19 09:19 Motrin - PO 600 mg Q6H PRN Administration PAIN LEVEL 1-5 Ondansetron HCl 4 mg 08/24/19 01:04 Zofran Injection IVPUSH Q8H PRN NAUSEA Tamsulosin HCl 0.4 mg 08/25/19 08:30 08/25/19 09:19 Flomax - PO 0.4 mg DAILY@0830 JUDY Administration S 1S2 RRR Lungs clear Abd-soft,NT rt groin dressing in place drain+ PLAN start eliquis today advance diet Surgery follow up Problem List - Problems (1) Incarcerated right inguinal hernia Code(s): K40.30 - UNIL INGUINAL HERNIA, W OBST, W/O GANGR, NOT SPCF RECUR (2) Scrotal pain Code(s): N50.82 - SCROTAL PAIN (3) Afib Code(s): I48.91 - UNSPECIFIED ATRIAL FIBRILLATION Qualifiers: Atrial fibrillation type: longstanding persistent Qualified Code(s): I48.11 - Longstanding persistent atrial fibrillation (4) BPH (benign prostatic hyperplasia) Code(s): N40.0 - BENIGN PROSTATIC HYPERPLASIA WITHOUT LOWER URINRY TRACT SYMP Qualifiers: Lower urinary tract symptom presence: symptoms present Lower urinary tract symptom detail: urinary retention Qualified Code(s): N40.1 - Benign prostatic hyperplasia with lower urinary tract symptoms; R33.8 - Other retention of urine
[2019-08-25] MEDS: PANTOPRAZOLE 40 MG TABLET (FP) PO SCH (11:52)
--- NOTE | 2019-08-25 12:26 | PN ---
Progress Note, Physician Chief Complaint: right groin pain History of Present Illness: 82 y/o male PMH BPH, Incarcerated left inguinal Hernia, presented with acute incarceration of the right side. He was taken for urgent operative repair and has been stable during the post operative period. no complaints this morning. - Current Medication List Current Medications: Active Medications Acetaminophen (Tylenol -) 650 mg PO Q6H PRN PRN Reason: PAIN LEVEL 1-5 Last Admin: 08/24/19 03:28 Dose: 650 mg Apixaban (Eliquis -) 5 mg PO BID [facility] Last Admin: 08/25/19 09:19 Dose: 5 mg Finasteride (Proscar -) 5 mg PO DAILY [facility] Last Admin: 08/25/19 09:19 Dose: 5 mg Cefazolin Sodium (Ancef 1 Gm Premixed Ivpb -) 1 gm in 50 mls @ 100 mls/hr IVPB Q8H-IV [facility] Last Admin: 08/25/19 09:17 Dose: 100 mls/hr Dextrose/Sodium Chloride (D5-1/2ns -) 1,000 mls @ 100 mls/hr IV ASDIR [facility] Last Admin: 08/25/19 06:05 Dose: 100 mls/hr Ibuprofen (Motrin -) 600 mg PO Q6H PRN PRN Reason: PAIN LEVEL 1-5 Last Admin: 08/25/19 09:19 Dose: 600 mg Ondansetron HCl (Zofran Injection) 4 mg IVPUSH Q8H PRN PRN Reason: NAUSEA Pantoprazole Sodium (Protonix -) 40 mg PO DAILY [facility] Last Admin: 08/25/19 11:52 Dose: 40 mg Tamsulosin HCl (Flomax -) 0.4 mg PO DAILY@0830 [facility] Last Admin: 08/25/19 09:19 Dose: 0.4 mg - Objective Vital Signs: Vital Signs Temperature 98.0 F 08/25/19 09:20 Pulse Rate 73 08/25/19 09:20 Respiratory Rate 17 08/25/19 09:20 Blood Pressure 139/77 08/25/19 09:20 O2 Sat by Pulse Oximetry (%) 98 08/25/19 09:00 Vital Signs Period Temp Pulse Resp BP Sys/Ceballos Pulse Ox Last 24 Hr 94.6 F-98.2 F 69-75 17-18 125-141/64-77 97-98 Intake & Output 08/24/19 08/25/19 08/25/19 23:59 07:59 15:59 Intake Total 1250 230 Output Total 1500 1560 600 Balance -1500 -310 -370 Intake: IV 1200 D5-1/2Ns - 1,000 ml @ 100 1200 mls/hr IV ASDIR JUDY Rx#: [id number] IVPB 50 Oral 230 Output: Drainage 60 Right Lower Abdomen 60 Urine 1500 1500 600 Void 1500 1500 600 Other: Voiding Method Urinal Urinal Bowel Movement No No Yes # Bowel Movements 1 Constitutional: Yes: Well Nourished, No Distress, Calm Eyes: Yes: Conjunctiva Clear, EOM Intact HENT: Yes: Atraumatic, Normocephalic Neck: Yes: Supple, Trachea Midline Cardiovascular: Yes: Regular Rate and Rhythm, S1, S2 Respiratory: Yes: Regular, CTA Bilaterally Gastrointestinal: Yes: Normal Bowel Sounds, Soft, Tenderness (incisional). No: Hernia ...Rectal Exam: Yes: Deferred Genitourinary: No: CVA Tenderness - Left, Menses Present Breast(s): No: Mass, Skin Changes Musculoskeletal: No: Muscle Pain, Muscle Weakness Extremities: No: Cool, Cyanosis Edema: No Peripheral Pulses WNL: Yes Peripheral Pulses: Left Radial: 2+, Right Radial: 2+, Left Doralis Pedis: 2+, Right Dorsalis Pedis: 2+, Left Femoral: 2+, Right Femoral: 2+ Wound/Incision: Yes: Clean/Dry, Well Approximated, Open to air Neurological: Yes: Alert, Oriented Psychiatric: Yes: Alert, Oriented Labs: CBC, BMP 08/23/19 14:20 08/23/19 14:20 INR, PTT INR 1.13 (0.83-1.09) H 08/23/19 16:05 Problem List - Problems (1) Incarcerated right inguinal hernia Assessment/Plan: 83yo male with mmp s/p LIH repair with mesh, presents now with acutely incarcerated LIH POD#2 s/p RIH repair with mesh diet as tolerated IVF hydration IV antibiotics PT evaluation OOB and ambulate discuss continuing eloquis or not discharge at discretion of primary team Problems reviewed: Yes Code(s): K40.30 - UNIL INGUINAL HERNIA, W OBST, W/O GANGR, NOT SPCF RECUR (2) Afib Problems reviewed: Yes Code(s): I48.91 - UNSPECIFIED ATRIAL FIBRILLATION Qualifiers: Atrial fibrillation type: longstanding persistent Qualified Code(s): I48.11 - Longstanding persistent atrial fibrillation (3) Incarcerated left inguinal hernia Problems reviewed: Yes Code(s): K40.30 - UNIL INGUINAL HERNIA, W OBST, W/O GANGR, NOT SPCF RECUR (4) BPH (benign prostatic hyperplasia) Problems reviewed: Yes Code(s): N40.0 - BENIGN PROSTATIC HYPERPLASIA WITHOUT LOWER URINRY TRACT SYMP Qualifiers: Lower urinary tract symptom presence: symptoms present Lower urinary tract symptom detail: urinary retention Qualified Code(s): N40.1 - Benign prostatic hyperplasia with lower urinary tract symptoms; R33.8 - Other retention of urine
--- NOTE | 2019-08-25 19:22 | PATH ---
Surgical Pathology Report Patient Name: BETTY PEDRO [facility]. Rec. #: [id number] /Age/Gender: 1935 (Age: 83) / M Account: [id number] Location: [address] [place] [address] Taken: 08/23/2019 Received: 08/24/2019 Reported: 08/25/2019 Physicians: Manpreet Fox M.D. Specimen(s) Received A: LIPOMA OF CORD RIGHT B: HERNIA SAC RIGHT Clinical History Right incarcerated inguinal hernia Final Diagnosis A. LIPOMA OF CORD, RIGHT, EXCISION: MATURE ADIPOSE TISSUE, CONSISTENT WITH LIPOMA. B. RIGHT HERNIA SAC: CONSISTENT WITH HERNIA SAC. Electronically Signed Flakito Angulo M.D. Gross Description A. Received in formalin labeled "lipoma of cord," is a 3.6 x 2.8 x 0.8 cm gillette-yellow portion of fibrofatty tissue. Family [employer] Consumer [employer] Professor sections are submitted in one cassette. B. Received in formalin labeled "hernia sac," is a 5.5 x 1.5 x 0.1 cm gillette-marie portion of fibromembranous tissue, consistent with a hernia sac. Family [employer] Consumer Science Professor sections are submitted in one cassette. DL/08/24/2019 saudi/08/24/2019
[2019-08-26] MEDS: CEFAZOLIN 1 GM/D5W 1 GM/50 ML BAG IVPB SCH ×2 (01:56→09:17)
[2019-08-26 04:33] VITALS: BP 147/77; PULSE 76; TEMP 98
[2019-08-26] MEDS: APIXABAN 5 MG TABLET PO SCH (09:20)
[2019-08-26] MEDS: IBUPROFEN 600 MG TABLET (FP) PO PRN (09:20)
[2019-08-26] MEDS: TAMSULOSIN HCL 0.4 MG CAP PO SCH (09:23)
[2019-08-26] MEDS: FINASTERIDE 5 MG TABLET (FP) PO SCH (09:23)
[2019-08-26] MEDS: PANTOPRAZOLE 40 MG TABLET (FP) PO SCH (09:23)
--- NOTE | 2019-08-26 12:26 | DS ---
Physical Examination Vital Signs: Vital Signs Temperature 98.0 F 08/26/19 05:50 Pulse Rate 76 08/26/19 05:50 Respiratory Rate 16 08/26/19 09:00 Blood Pressure 147/77 08/26/19 05:50 O2 Sat by Pulse Oximetry (%) 95 08/26/19 09:00 Labs: CBC, BMP 08/23/19 14:20 08/23/19 14:20 Discharge Summary Problems reviewed: Yes Reason For Visit: PAIN IN SCROTUM Current Active Problems Abdominal pain (Acute) Incarcerated right inguinal hernia (Acute) Scrotal pain (Acute) Condition: Stable - Instructions Diet, Activity, Other Instructions: Postoperative instructions: You had a Right Inguinal Hernia repair with mesh on 08/23/[address] Manpreet Fox of [facility]. Activity: Resume your usual activities gradually, but no heavy exertion or lifting more than 10-15 pounds for 4-6 weeks. Remove dressings 48 hours after surgery, if they are not already off. You may shower daily starting then, just pat the incision areas dry. No bath or swimming until skin incisions have healed. Albino should not need to be recovered with any dressings, unless you have been told otherwise. Eat lightly at first, but advance to your usual diet as tolerated. Pain: For pain, you may use and alternate Tylenol (acetaminophen) 1-2 pills and/ or ibuprofen 200 mg (1-3 pills) every 6 hours each as needed; this means that you can take one OR the other at 3-hour intervals. If you are prescribed a Tylenol/narcotic combination for severe pain, use it instead of plain Tylenol as needed and switch back when your pain starts decreasing. Do not take more than 4000 mg of acetaminophen in a day. Take medications as prescribed or indicated on the labeling. Follow-up: Call Dr. Fox' office at [phone] to make your postop appointment (Friday in approximately 2 weeks after surgery as advised). Clinic is held in the [facility] on the first floor of [facility]. Call the office if you have: * increasing pain not responsive to pain medication * fever of 101F or higher * vomiting * unusual or increasing bleeding or drainage from wounds * increasing redness or swelling at wound sites * inability to urinate Also, see your primary medical doctor within 1-2 weeks. Referrals: Manpreet Fox MD [Primary Care Provider] - Disposition: HOME - Home Medications Comprehensive Discharge Medication List: Ambulatory Orders Finasteride 5 mg PO DAILY 03/12/18 Tamsulosin HCl 0.4 mg PO DAILY 03/12/18 Apixaban [Eliquis -] 5 mg PO BID #0 tablet 07/24/18 Mag Carb/Aluminum Hydrox/Algin [Gaviscon Liquid] 30 ml PO PRN PRN #0 oral.susp 06/02/19 Pantoprazole Sodium 40 mg PO DAILY 06/02/19 Ranitidine HCl 150 mg PO BID #180 tablet 06/02/19 Ranitidine [Zantac -] 150 mg PO BID #1 tablet 06/02/19
== END 2019-08-26 15:10 | disposition home or self-care (01) | DRG 351 ==
LOC: JER 12:06 → JERBED 16:06 → J6S 08-24 02:04
PROVIDERS: ADMIT Internal Medicine; ATTEND Internal Medicine
PROC: 0YU50JZ Supplement Right Inguinal Region with Synthetic Substitute, Open Approach (ICD-10-PCS; principal; 2019-08-23 15:30)
DX: K40.30 Unilateral inguinal hernia, with obstruction, without gangrene, not specified as recurrent (principal); I48.11 Longstanding persistent atrial fibrillation; N50.82 Scrotal pain; N40.0 Benign prostatic hyperplasia without lower urinary tract symptoms; R33.8 Other retention of urine
CPT/HCPCS: 36415; 74176-TC; 76870-TC; 80053; 81003; 83605; 85025; 85610; 85730; 86850; 86900; 86901; 87086; 88302-TC; 88304-TC; 93005; 93010; 94760; 97116-GP; 97161-GP; 99281-25; J7030

== ENCOUNTER 2020-06-28 13:20 | Inpatient (IN) | payer OTHER, BC ==
[2020-06-28] MEDS ORDERED: ONDANSETRON 4 MG/2 ML VIAL IVPUSH ONE (13:29)
--- NOTE | 2020-06-28 13:36 | PDOC ---
Rapid Medical Evaluation Chief Complaint: Pain Time Seen by Provider: 06/28/20 13:26 Medical Evaluation: Allergies Allergy/AdvReac Type Severity Reaction Status Date / Time Fish Containing Products Allergy Verified 08/23/19 12:26 No Known Drug Allergies Allergy Verified 08/23/19 12:26 Vital Signs Temp Pulse Resp BP Pulse Ox 97.2 F L 96 H 15 127/56 L 96 06/28/20 13:24 06/28/20 13:24 06/28/20 13:24 06/28/20 13:24 06/28/20 13:24 06/28/20 13:30 CC: n/v since yesterday with belching, no bowel complaints, hx mult hernia Exam: noted protrusion above umbilicus, + epigastric tenderness, vss Plan; labs, urine, zofran ct Discharge Disposition - Diagnosis Abdominal pain - Referrals - Patient Instructions - Post Discharge Activity
[2020-06-28] MEDS ORDERED: ACETAMINOPHEN 1000 MG/100 ML VIAL (NON FORMULARY) IVPB ONE (13:58)
[2020-06-28] MEDS ORDERED: SODIUM CHLORIDE 1,000 ML IV STA (13:59)
[2020-06-28] MEDS ORDERED: ACETAMINOPHEN INJECTION 100 ML IVPB ONE (14:05)
--- NOTE | 2020-06-28 14:32 | PDOC ---
History of Present Illness - General Chief Complaint: Pain Stated Complaint: UPSET STOMACH (DISCOMFORT) Time Seen by Provider: 06/28/20 13:26 - History of Present Illness Initial Comments: 06/28/20 14:32 HPI: 84 y/o M with hx of ?paroxysmal Afib on eliquis, BPH, BL inguinal hernias c/b SBO s/p partial bowel resection ([address] Fox) presenting with nausea and emesis since last night and abd pain today. He reports last night he was nauseous with several episodes of emesis and wasnt able to toelrate diet. This morning his symptoms worsened and developed abd pain and distension. Last BM and flatus was yesterday and he has been belching today. He denies fever, chills, abd pain, SOB, dysuria, hematuria. PMHx: as noted above ROS: as noted SHx: Denies tobacco use; +occ alcohol use; no rec drugs Allergies: NKDA ROS: GENERAL/CONSTITUTIONAL: No fever or chills. No weakness. HEAD, EYES, EARS, NOSE AND THROAT: No change in vision. No ear pain or discharge. No sore throat. CARDIOVASCULAR: No chest pain or shortness of breath RESPIRATORY: No cough, wheezing, or hemoptysis. GASTROINTESTINAL: +nausea, vomiting. GENITOURINARY: No dysuria, frequency, or change in urination. MUSCULOSKELETAL: No joint or muscle swelling or pain. No neck or back pain. SKIN: No rash NEUROLOGIC: No headache, vertigo, loss of consciousness, or change in strength/sensation. ENDOCRINE: No increased thirst. No abnormal weight change HEMATOLOGIC/LYMPHATIC: No anemia, easy bleeding, or history of blood clots. ALLERGIC/IMMUNOLOGIC: No hives or skin allergy. PE: GENERAL: Awake, alert, and fully oriented, no acute distress HEAD: No signs of trauma, normocephalic, atraumatic EYES: EOMI, sclera anicteric, conjunctiva clear ENT: Auricles normal inspection, hearing grossly normal, nares patent, oropharynx clear without exudates. Moist mucosa NECK: Normal ROM, no lymphadenopathy LUNGS: No increased work of breathing, symmetrical chest rise, clear to auscultation bilaterally, no wheezes, crackles or rhonchi HEART: Regular rate, regular rhythm, normal S1 and S2, no murmur, peripheral pulses 2+ and equal bilaterally. ABDOMEN: Distended abdomen with minimal bowel sounds and ?tinkling in RLQ with diffuse tenderness to palpation with guarding, tympanitic to percussion, no rebound. No masses. No CVAT MUSCULOSKELETAL: FROM NEUROLOGICAL: Cranial nerves II through XII grossly intact. Normal speech, stable gait, no focal sensorimotor deficits SKIN: Warm, Dry, normal turgor, no rashes or lesions noted Past History - Medical History Allergies/Adverse Reactions: Allergies Allergy/AdvReac Type Severity Reaction Status Date / Time Fish Containing Products Allergy Verified 08/23/19 12:26 No Known Drug Allergies Allergy Verified 08/23/19 12:26 Home Medications: Ambulatory Orders Finasteride 5 mg PO DAILY 03/12/18 Tamsulosin HCl 0.4 mg PO DAILY 03/12/18 Apixaban [Eliquis -] 5 mg PO BID #0 tablet 07/24/18 Mag Carb/Aluminum Hydrox/Algin [Gaviscon Liquid] 30 ml PO PRN PRN #0 oral.susp 06/02/19 Pantoprazole Sodium 40 mg PO DAILY 06/02/19 Docusate Sodium [Colace] 100 mg PO TID 30 Days #90 capsule 08/26/19 Anemia: No Asthma: No Cancer: No Cardiac Disorders: Yes (afib) CVA: No COPD: No CHF: No Dementia: No Diabetes: No GI Disorders: Yes (acid reflux) Disorders: Yes (bph) HTN: No Hypercholesterolemia: No Liver Disease: No Seizures: No Thyroid Disease: No - Surgical History Abdominal Surgery: Yes (Umbilical hernia repair) Cholecystectomy: No - Psycho-Social/Smoking History Smoking History: Never smoked Have you smoked in the past 12 months: No Information on smoking cessation initiated: No - Substance Abuse Hx (Audit-C & DAST Scrn) How often the patient has a drink containing alcohol: Never Score: In Men: 4 or > Positive; In Women: 3 or > Positive: 0 Screen Result (Pos requires Nsg. Audit-10AR): Negative In the last yr the pt used illegal drug/Rx for NonMed reason: No Score: Yes response is considered Positive: 0 Screen Result (Positive result requires Nsg. DAST-10): Negative *Physical Exam - Vital Signs Last Vital Signs Temp Pulse Resp BP Pulse Ox 97.2 F L 96 H 15 127/56 L 96 06/28/20 13:24 06/28/20 13:24 06/28/20 13:24 06/28/20 13:24 06/28/20 13:24 ED Treatment Course - LABORATORY CBC & Chemistry Diagram: 06/28/20 14:40 06/28/20 14:40 - RADIOLOGY Radiology Studies Ordered: Category Date Time Status ABDOMEN & PELVIS CT WITH CONTR [CT] Stat CT Scan 06/28/20 13:27 Ordered KUB (KID UR & BLAD) [RAD] Stat Radiology 06/28/20 13:57 Ordered Medical Decision Making - Medical Decision Making 06/28/20 15:55 84 y/o M with hx of ?paroxysmal Afib on eliquis, BPH, BL inguinal hernias c/b SBO s/p partial bowel resection ([address] Fox) presenting with nausea and emesis since last night and abd pain today associated with distension and inability to tolerate food. VSS, AF. PE with distended abdomen with minimal bowel sounds and ?tinkling in RLQ with diffuse tenderness to palpation with guarding, tympanitic to percussion -KUB, cbc, cmp, lipase, coags, card prof, ekg, t&s, coags, lactate -ivf, zofran, ofirmev 06/28/20 15:56 KUB with dilated loops of bowel POCUS with dilated loops of bowel and to and fro sign indicative of lack of peristalsis NG tube places with immediate 1.3L brown returns Will proceed with CT abd pel w iv and po contrast through NG will call surgery following CT and admit for SBO 06/28/20 17:[address] glez; npo, ivf, celestina mIVF administered Discharge - Discharge Information Problems reviewed: Yes Clinical Impression/Diagnosis: SBO (small bowel obstruction) Abdominal pain Qualifiers: Abdominal location: unspecified location Qualified Code(s): R10.9 - Unspecified abdominal pain Condition: Stable - Admission Yes - Follow up/Referral Referrals: Brady Garza MD [Primary Care Provider] - - Patient Discharge Instructions - Post Discharge Activity
--- NOTE | 2020-06-28 14:38 | PDOC ---
Documentation entered by Noreen Dodge SCRIBE, acting as scribe for Antolin Smith MD. Antolin Smith MD: This documentation has been prepared by the Dar lund Xhesika, SCRIBE, under my direction and personally reviewed by me in its entirety. I confirm that the documentation accurately reflects all work, treatment, procedures, and medical decision making performed by me. Attending Attestation - Resident Resident Name: Spike Rajan - ED Attending Attestation I have performed the following: I have examined & evaluated the patient, The case was reviewed & discussed with the resident, I agree w/resident's findings & plan, Exceptions are as noted - HPI HPI: 06/28/20 14:28 The patient is a 84 year old male with a significant PMH of who presents to the emergency department for nausea and vomiting associated with blenching since yesterday. Allergies: NKDA PCP:Brady Garza - Physicial Exam PE: 06/28/20 14:37 Patient is awake and alert, well-nourished, in no significant distress Normocephalic, atraumatic PERRLA, EOMI, no scleral icterus CTA RRR Abdomen is soft, tympanitic, distended, diffusely tender to palpation with decreased breath sounds in all 4 quadrants - Medical Decision Making 06/28/20 14:37 Patient is an 84-year-old male with multiple previous abdominal surgeries who presents to the ER distended abdomen, pain, persistent nausea and intermittent nonbloody, nonbilious vomiting. I suspect small bowel obstruction. KUB reveals dilated loops of small bowel. Will IV fluid resuscitate, will place NG tube with p.o. contrast. Will obtain CT of abdomen pelvis. Will consult surgery as needed. Discharge - Discharge Information Problems reviewed: Yes Clinical Impression/Diagnosis: SBO (small bowel obstruction) Abdominal pain Qualifiers: Abdominal location: unspecified location Qualified Code(s): R10.9 - Unspecified abdominal pain - Follow up/Referral Referrals: Brady Garza MD [Primary Care Provider] - - Patient Discharge Instructions - Post Discharge Activity
[2020-06-28] MEDS ORDERED: LIDOCAINE HCL 2% JELLY (5 ML/TUBE) ONE (14:49)
[2020-06-28] MEDS ORDERED: LIDOCAINE VISCOUS 2% ORAL/TOP 20 ML UNIT-DOSE CUP ONE (14:49)
[2020-06-28 14:56] LABS: BASO % 0.3 % (0-2.0); EOS % 0.1 % (0-4.5); HEMATOCRIT 49.9 % (35.4-49); HEMOGLOBIN 16.8 GM/dL (11.7-16.9); LYMPH % 6.3 % (8-40); MCH 31.1 pg (25.7-33.7); MCHC 33.7 g/dl (32.0-35.9); MEAN CELL VOLUME 92.2 fl (80-96); MEAN PLT VOLUME 9.3 fl (7.5-11.1); MONO % 8.6 % (3.8-10.2); NEUT % 84.7 % (42.8-82.8); PLATELET COUNT 223 K/MM3 (134-434); RBC 5.41 M/mm3 (4.00-5.60); RDW 12.6 % (11.9-15.9); WHITE BLOOD COUNT 21.1 K/mm3 (4.0-10.0)
[2020-06-28 15:02] LABS: INR 1.06 (0.83-1.09); PROTHROMBIN TIME (PATIENT) 12.5 SEC (9.7-13.0)
--- NOTE | 2020-06-28 15:04 | EKG ---
Test Reason : Blood Pressure : / mmHG Vent. Rate : 088 BPM Atrial Rate : 088 BPM P-R Int : 196 ms QRS Dur : 072 ms QT Int : 390 ms P-R-T Axes : 049 -17 034 degrees QTc Int : 471 ms POOR DATA QUALITY, INTERPRETATION MAY BE ADVERSELY AFFECTED NORMAL SINUS RHYTHM NORMAL ECG WHEN COMPARED WITH ECG OF 23-AUG-2019 14:20, NO SIGNIFICANT CHANGE WAS FOUND Confirmed by Ruel Rodriguez MD ([id number]) on 06/28/2020 3:04:11 PM Referred By: Confirmed By:Ruel Rodriguez MD
[2020-06-28 15:05] LABS: ACTIVATED PTT 31.5 SECONDS (25.2-36.5)
[2020-06-28 15:13] LABS: ALBUMIN 3.7 g/dl (3.4-5.0); BILIRUBIN,TOTAL 3.2 mg/dL (0.2-1); CALCIUM 7.4 mg/dL (8.5-10.1); MAGNESIUM 2.2 mg/dL (1.8-2.4); POTASSIUM 3.5 mmol/L (3.5-5.1)
[2020-06-28 15:49] LABS: ANISOCYTOSIS 0; MACROCYTOSIS 0; PLATELET ESTIMATE NORMAL
[2020-06-28] MEDS ORDERED: LACTATED RINGERS SOLUTION 1000 ML INFUS.BAG IV ONE (16:18)
[2020-06-28] MEDS ORDERED: LACTATED RINGERS SOLUTION 1,000 ML/1,000 ML INFUS.BAG IV SCH (17:30)
--- NOTE | 2020-06-28 22:06 | HP ---
Admitting History and Physical - Primary Care Physician PCP: Brady Garza - Admission Chief Complaint: Abdominal Pain History of Present Illness: This is a 84 y/o male with a PMHx of ?Paroxysmal Afib (on eliquis), BPH, Bilateral Inguinal Hernias c/b SBO s/p partial bowel resection ([address] Fox). Who presents with nausea and NB emesis x last nightm, diffuse sharp abdominal pain x today. He reports last night he was nauseous with several episodes of emesis and was not able to tolerate food. This morning he reports that his symptoms were worse and developed belching, abd pain with distension. Last BM and flatus was yesterday. Patient denies fever, chills, dizziness, ALFONSO, SOB, melena, hematochezia, hematuria, dysuria. Patient denies sick contacts or recent travel. History Source: Patient Limitations to Obtaining History: No Limitations - Past Medical History Cardiovascular: Yes: AFIB Gastrointestinal: Yes: GERD, Other ( bilateral Inguinal Hernia SBO) Renal/: Yes: BPH Musculoskeletal: Yes: Osteoarthritis - Past Surgical History Past Surgical History: Yes: Hernia Repair (umbilcal?) Additional Past Surgical History: Partial Bowel Resection - Smoking History Smoking history: Never smoked Have you smoked in the past 12 months: No - Alcohol/Substance Use Hx Alcohol Use: No History of Substance Use: reports: None - Social History Usual Living Arrangement: Yes: With Spouse ADL: Independent Occupation: Retired [employer] History of Recent Travel: No Home Medications - Allergies Allergies/Adverse Reactions: Allergies Allergy/AdvReac Type Severity Reaction Status Date / Time Fish Containing Products Allergy Verified 08/23/19 12:26 No Known Drug Allergies Allergy Verified 08/23/19 12:26 - Home Medications Home Medications: Ambulatory Orders Finasteride 5 mg PO DAILY 03/12/18 Tamsulosin HCl 0.4 mg PO DAILY 03/12/18 Apixaban [Eliquis -] 5 mg PO BID #0 tablet 07/24/18 Mag Carb/Aluminum Hydrox/Algin [Gaviscon Liquid] 30 ml PO PRN PRN #0 oral.susp 06/02/19 Pantoprazole Sodium 40 mg PO DAILY 06/02/19 Docusate Sodium [Colace] 100 mg PO TID 30 Days #90 capsule 08/26/19 Family Medical History Family History: Unremarkable Review of Systems - Review of Systems Constitutional: reports: Loss of Appetite Eyes: reports: No Symptoms HENT: reports: No Symptoms Neck: reports: No Symptoms Cardiovascular: reports: No Symptoms Respiratory: reports: No Symptoms Gastrointestinal: reports: Abdominal Pain, Bloating, Nausea, Vomiting Genitourinary: reports: No Symptoms Breasts: reports: No Symptoms Reported Musculoskeletal: reports: No Symptoms Integumentary: reports: No Symptoms Neurological: reports: No Symptoms Endocrine: reports: No Symptoms Hematology/Lymphatic: reports: No Symptoms Psychiatric: reports: No Symptoms Pain Intensity: 6 Physical Examination Vital Signs: Vital Signs Temperature 98.4 F 06/28/20 13:29 Pulse Rate 72 06/28/20 13:29 Respiratory Rate 20 06/28/20 13:29 Blood Pressure 115/65 06/28/20 13:29 O2 Sat by Pulse Oximetry (%) 98 06/28/20 13:29 Constitutional: Yes: No Distress, Calm, Thin Eyes: Yes: Conjunctiva Clear, EOM Intact, PERRL HENT: Yes: Atraumatic, Normocephalic, Other (NGT - Nare) Neck: Yes: Supple, Trachea Midline Cardiovascular: Yes: Regular Rate and Rhythm, S1, S2 Respiratory: Yes: Regular, CTA Bilaterally Gastrointestinal: Yes: Distention, Hypoactive Bowel Sounds, Tenderness (LUQ, RLQ) ...Rectal Exam: Yes: Deferred Renal/: Yes: WNL Breast(s): Yes: WNL Musculoskeletal: Yes: WNL Extremities: Yes: WNL Edema: No Peripheral Pulses WNL: Yes Neurological: Yes: WNL, Alert, Oriented, Cran Nerves II-XII Intact ...Motor Strength: WNL Psychiatric: Yes: WNL, Alert, Oriented Labs: CBC, BMP 06/28/20 14:40 06/28/20 14:40 Laboratory Results - last 24 hr 06/28/20 06/28/20 06/28/20 14:40 14:40 14:40 WBC 21.1 H RBC 5.41 Hgb 16.8 Hct 49.9 H MCV 92.2 MCH 31.1 MCHC 33.7 RDW 12.6 Plt Count 223 MPV 9.3 Absolute Neuts (auto) 17.9 H Neutrophils % 84.7 H Neutrophils % (Manual) 89.1 H Band Neutrophils % 0.0 Lymphocytes % 6.3 L D Lymphocytes % (Manual) 2.7 L D Monocytes % 8.6 Monocytes % (Manual) 8 D Eosinophils % 0.1 D Eosinophils % (Manual) 0.0 D Basophils % 0.3 Basophils % (Manual) 0.0 Myelocytes % (Man) 0 D Promyelocytes % (Man) 0 Blast Cells % (Manual) 0 Nucleated RBC % 0 Metamyelocytes 0 Hypochromia 0 Platelet Estimate Normal Polychromasia 0 Poikilocytosis 0 Anisocytosis 0 Microcytosis 0 Macrocytosis 0 PT with INR INR PTT (Actin FS) Sodium 128 L Potassium 3.5 Chloride 88 L Carbon Dioxide 33 H Anion Gap 8 BUN 12.0 Creatinine 1.0 Est GFR (CKD-EPI)AfAm 80.88 Est GFR (CKD-EPI)NonAf 69.78 Random Glucose 131 H Lactic Acid Calcium 7.4 L Magnesium 2.2 Total Bilirubin 3.2 H AST 26 ALT 28 Alkaline Phosphatase 83 Creatine Kinase 236 Creatine Kinase Index 2.5 CK-MB (CK-2) 6.0 H Troponin I < 0.02 Total Protein 7.0 Albumin 3.7 Blood Type Antibody Screen 06/28/20 06/28/20 06/28/20 14:40 14:40 16:56 WBC RBC Hgb Hct MCV MCH MCHC RDW Plt Count MPV Absolute Neuts (auto) Neutrophils % Neutrophils % (Manual) Band Neutrophils % Lymphocytes % Lymphocytes % (Manual) Monocytes % Monocytes % (Manual) Eosinophils % Eosinophils % (Manual) Basophils % Basophils % (Manual) Myelocytes % (Man) Promyelocytes % (Man) Blast Cells % (Manual) Nucleated RBC % Metamyelocytes Hypochromia Platelet Estimate Polychromasia Poikilocytosis Anisocytosis Microcytosis Macrocytosis PT with INR 12.50 INR 1.06 PTT (Actin FS) 31.5 Sodium Potassium Chloride Carbon Dioxide Anion Gap BUN Creatinine Est GFR (CKD-EPI)AfAm Est GFR (CKD-EPI)NonAf Random Glucose Lactic Acid 1.7 Calcium Magnesium Total Bilirubin AST ALT Alkaline Phosphatase Creatine Kinase Creatine Kinase Index CK-MB (CK-2) Troponin I Total Protein Albumin Blood Type AB POSITIVE Antibody Screen Negative Current Medications Generic Name Dose Route Start Last Admin Trade Name Freq PRN Reason Stop Dose Admin Acetaminophen 1,000 mg 06/28/20 22:10 06/29/20 02:40 Ofirmev Injection - IVPB 06/29/20 22:10 1,000 mg Q6H PRN Administration PAIN LEVEL 4 - 6 Lactated Ringer's 1,000 ml in 1,000 mls @ 75 mls/hr 06/28/20 22:11 06/28/20 22:47 Lactated Ringers Solution IV Not Given ASDIR JUDY Imaging - Results X-ray: Report Reviewed, Image Reviewed EKG: Image Reviewed Problem List - Problems (1) SBO (small bowel obstruction) Assessment/Plan: hx bowel obstruction s/p partial bowel resection 2017 Abdominal Xray- air distended small bowel loops, suggestive of small bowel or high-grade partial small bowel obstruction Appreciate Surgical consult- Dr Barakat aware per ED resident NGT- to low wall suction Gentle IVF Ofirmev prn [place] CBC, CMP Monitor vitals Code(s): K56.609 - UNSP INTESTNL OBST, UNSP TO PARTIAL VERSUS COMPLETE OBST (2) Abdominal pain Assessment/Plan: see above Code(s): R10.9 - UNSPECIFIED ABDOMINAL PAIN Qualifiers: Abdominal location: unspecified location Qualified Code(s): R10.9 - Unspecified abdominal pain (3) Leukocytosis Assessment/Plan: Likely secondary to inflammation vs infection vs malignancy Blood Cultures-pending Pt afebrile Will hold ABX for now, continue to monitor Monitor CBC Monitor vitals Code(s): D72.829 - ELEVATED WHITE BLOOD CELL COUNT, UNSPECIFIED (4) Afib Assessment/Plan: stable EKG- NSR no change compared to prior study [id number] 3 Hold Eliquis 2/2 SBO Continue to monitor Code(s): I48.91 - UNSPECIFIED ATRIAL FIBRILLATION Qualifiers: Atrial fibrillation type: longstanding persistent Qualified Code(s): I48.11 - Longstanding persistent atrial fibrillation (5) BPH (benign prostatic hyperplasia) Assessment/Plan: Hold current med for now Continue to monitor Code(s): N40.0 - BENIGN PROSTATIC HYPERPLASIA WITHOUT LOWER URINRY TRACT SYMP Qualifiers: Lower urinary tract symptom presence: symptoms present Lower urinary tract symptom detail: urinary retention Qualified Code(s): N40.1 - Benign prostatic hyperplasia with lower urinary tract symptoms; R33.8 - Other retention of urine (6) Encounter for screening laboratory testing for COVID-19 virus Assessment/Plan: Low Risk COVID PCR- pending Isolation Precautions Code(s): Z11.59 - ENCOUNTER FOR SCREENING FOR OTHER VIRAL DISEASES Assessment/Plan This is a 84 y/o male with a PMHx of ?Paroxysmal Afib (on eliquis), BPH, Bilateral Inguinal Hernias c/b SBO s/p partial bowel resection ([address] Fox). Admitted to [facility] for Small Bowel Obstruction for further evaluation of their emergent condition. Plan: See Problem List FEN LR@75ml/hr Replete lytes prn NPO DVT ppx OOB SCDs Heparin SQ Dispo: Requires Inpatient Care Visit type - Medication Review Med list reviewed for High Risk Meds patients 65 and older: Yes - Emergency Visit Emergency Visit: Yes ED Registration Date: 06/28/20 Care time: The patient presented to the Emergency Department on the above date and was hospitalized for further evaluation of their emergent condition. - New Patient This patient is new to me today: Yes Date on this admission: 06/28/20 - Critical Care Critical Care patient: No
[2020-06-28] MEDS ORDERED: ACETAMINOPHEN 1000 MG/100 ML VIAL (NON FORMULARY) IVPB PRN (22:10)
[2020-06-28] MEDS: LACTATED RINGERS SOLUTION 1,000 ML/1,000 ML INFUS.BAG IV SCH (22:47)
[2020-06-29 08:17] LABS: BASO % 0.2 % (0-2.0); EOS % 0.3 % (0-4.5); HEMATOCRIT 47.9 % (35.4-49); HEMOGLOBIN 16.1 GM/dL (11.7-16.9); LYMPH % 15.2 % (8-40); MCH 30.9 pg (25.7-33.7); MCHC 33.6 g/dl (32.0-35.9); MEAN PLT VOLUME 9.4 fl (7.5-11.1); MONO % 11.2 % (3.8-10.2); NEUT % 73.1 % (42.8-82.8); PLATELET COUNT 208 K/MM3 (134-434); RDW 12.7 % (11.9-15.9); WHITE BLOOD COUNT 9.7 K/mm3 (4.0-10.0)
[2020-06-29 08:18] LABS: POTASSIUM 3.8 mmol/L (3.5-5.1)
[2020-06-29 08:26] LABS: ALBUMIN 3.2 g/dl (3.4-5.0); BILIRUBIN,TOTAL 3.6 mg/dL (0.2-1); BLOOD UREA NITROGEN 12.6 mg/dL (7-18); CALCIUM 8.7 mg/dL (8.5-10.1); TOT PROT 6.1 g/dl (6.4-8.2)
--- NOTE | 2020-06-29 12:26 | PN ---
Progress Note (short form) - Note Progress Note: at bedside. Patient on NG tube suction. Has abdominal pain Vital Signs - 24 hr 06/28/20 06/28/20 06/29/20 13:24 13:29 00:18 Temperature 97.2 F L 98.4 F 98.1 F Pulse Rate 96 H 90 Pulse Rate [ 72 Left Radial] Respiratory 15 20 20 Rate Blood Pressure 127/56 L 115/69 Blood Pressure 115/65 [Left Arm] O2 Sat by Pulse 96 98 95 Oximetry (%) 06/29/20 06/29/20 06/29/20 01:59 06:18 09:00 Temperature 98.3 F 98.1 F Pulse Rate 86 86 Pulse Rate [ Left Radial] Respiratory 20 20 20 Rate Blood Pressure 111/64 104/59 L Blood Pressure [Left Arm] O2 Sat by Pulse 92 L 93 L 93 L Oximetry (%) Current Medications Generic Name Dose Route Start Last Admin Trade Name Freq PRN Reason Stop Dose Admin Acetaminophen 1,000 mg 06/28/20 22:10 06/29/20 02:40 Ofirmev Injection - IVPB 06/29/20 22:10 1,000 mg Q6H PRN Administration PAIN LEVEL 4 - 6 Lactated Ringer's 1,000 ml in 1,000 mls @ 75 mls/hr 06/28/20 22:11 06/28/20 22:47 Lactated Ringers Solution IV Not Given ASDIR JUDY Levofloxacin 500 mg in 100 mls @ 100 mls/hr 06/29/20 12:30 Levaquin 500 Mg Premixed Ivpb - IVPB DAILY [facility] Protocol Metronidazole 500 mg in 100 mls @ 100 mls/hr 06/29/20 12:30 Flagyl 500mg Premixed Ivpb - IVPB Q8H-IV JUDY Laboratory Results - last 24 hr 06/28/20 06/28/20 06/28/20 14:40 14:40 14:40 WBC 21.1 H RBC 5.41 Hgb 16.8 Hct 49.9 H MCV 92.2 MCH 31.1 MCHC 33.7 RDW 12.6 Plt Count 223 MPV 9.3 Absolute Neuts (auto) 17.9 H Neutrophils % 84.7 H Neutrophils % (Manual) 89.1 H Band Neutrophils % 0.0 Lymphocytes % 6.3 L D Lymphocytes % (Manual) 2.7 L D Monocytes % 8.6 Monocytes % (Manual) 8 D Eosinophils % 0.1 D Eosinophils % (Manual) 0.0 D Basophils % 0.3 Basophils % (Manual) 0.0 Myelocytes % (Man) 0 D Promyelocytes % (Man) 0 Blast Cells % (Manual) 0 Nucleated RBC % 0 Metamyelocytes 0 Hypochromia 0 Platelet Estimate Normal Polychromasia 0 Poikilocytosis 0 Anisocytosis 0 Microcytosis 0 Macrocytosis 0 PT with INR INR PTT (Actin FS) Sodium 128 L Potassium 3.5 Chloride 88 L Carbon Dioxide 33 H Anion Gap 8 BUN 12.0 Creatinine 1.0 Est GFR (CKD-EPI)AfAm 80.88 Est GFR (CKD-EPI)NonAf 69.78 Random Glucose 131 H Lactic Acid Calcium 7.4 L Magnesium 2.2 Total Bilirubin 3.2 H AST 26 ALT 28 Alkaline Phosphatase 83 Creatine Kinase 236 Creatine Kinase Index 2.5 CK-MB (CK-2) 6.0 H Troponin I < 0.02 Total Protein 7.0 Albumin 3.7 Blood Type Antibody Screen 06/28/20 06/28/20 06/28/20 14:40 14:40 16:56 WBC RBC Hgb Hct MCV MCH MCHC RDW Plt Count MPV Absolute Neuts (auto) Neutrophils % Neutrophils % (Manual) Band Neutrophils % Lymphocytes % Lymphocytes % (Manual) Monocytes % Monocytes % (Manual) Eosinophils % Eosinophils % (Manual) Basophils % Basophils % (Manual) Myelocytes % (Man) Promyelocytes % (Man) Blast Cells % (Manual) Nucleated RBC % Metamyelocytes Hypochromia Platelet Estimate Polychromasia Poikilocytosis Anisocytosis Microcytosis Macrocytosis PT with INR 12.50 INR 1.06 PTT (Actin FS) 31.5 Sodium Potassium Chloride Carbon Dioxide Anion Gap BUN Creatinine Est GFR (CKD-EPI)AfAm Est GFR (CKD-EPI)NonAf Random Glucose Lactic Acid 1.7 Calcium Magnesium Total Bilirubin AST ALT Alkaline Phosphatase Creatine Kinase Creatine Kinase Index CK-MB (CK-2) Troponin I Total Protein Albumin Blood Type AB POSITIVE Antibody Screen Negative 06/29/20 06/29/20 07:06 07:06 WBC 9.7 RBC 5.20 Hgb 16.1 Hct 47.9 MCV 92.0 MCH 30.9 MCHC 33.6 RDW 12.7 Plt Count 208 MPV 9.4 Absolute Neuts (auto) 7.1 Neutrophils % 73.1 Neutrophils % (Manual) Band Neutrophils % Lymphocytes % 15.2 D Lymphocytes % (Manual) Monocytes % 11.2 H Monocytes % (Manual) Eosinophils % 0.3 D Eosinophils % (Manual) Basophils % 0.2 Basophils % (Manual) Myelocytes % (Man) Promyelocytes % (Man) Blast Cells % (Manual) Nucleated RBC % 0 Metamyelocytes Hypochromia Platelet Estimate Polychromasia Poikilocytosis Anisocytosis Microcytosis Macrocytosis PT with INR INR PTT (Actin FS) Sodium 139 Potassium 3.8 Chloride 101 Carbon Dioxide 28 Anion Gap 10 BUN 12.6 Creatinine 1.0 Est GFR (CKD-EPI)AfAm 80.88 Est GFR (CKD-EPI)NonAf 69.78 Random Glucose 100 Lactic Acid Calcium 8.7 Magnesium Total Bilirubin 3.6 H AST 19 ALT 21 Alkaline Phosphatase 69 Creatine Kinase Creatine Kinase Index CK-MB (CK-2) Troponin I Total Protein 6.1 L Albumin 3.2 L Blood Type Antibody Screen S1, S2 irregular. Lungs clear. Abdomen soft, diffuse tenderness and distention, no bowel sounds no edema plan keep nothing by mouth start Antibiotics lovenox full dose IV fluids NG tube suction Surgical consult CT abdomen. Discussed with Problem List - Problems (1) Abdominal pain Code(s): R10.9 - UNSPECIFIED ABDOMINAL PAIN Qualifiers: Abdominal location: unspecified location Qualified Code(s): R10.9 - Unspecified abdominal pain (2) Leukocytosis Code(s): D72.829 - ELEVATED WHITE BLOOD CELL COUNT, UNSPECIFIED (3) SBO (small bowel obstruction) Code(s): K56.609 - UNSP INTESTNL OBST, UNSP TO PARTIAL VERSUS COMPLETE OBST (4) Afib Code(s): I48.91 - UNSPECIFIED ATRIAL FIBRILLATION Qualifiers: Atrial fibrillation type: longstanding persistent Qualified Code(s): I48.11 - Longstanding persistent atrial fibrillation
--- NOTE | 2020-06-29 14:44 | CONSULT ---
- Consultation REQUESTING PROVIDER: Spike Rajan MD CONSULT REQUEST: We have been asked to surgically evaluate this patient for a small bowel obstruction. Hospitalist:Brady Garza HISTORY OF PRESENT ILLNESS: EFE who is an 84 y/o w/male who presented w/nause and vomiting and crampy abdominal pain; he came to the ED for evaluation and w/u revealed an SBO. An NGT was placed and drained copious amounts of small bowel content; he has not passed flatus or had a BM. He has NOC. PMHx: BPH/Afib/cervical DJD/diverticulosis PSHx: 1. 03/13/18 ex.lap and small bowel resection for an incarcerated LIH; he also had a PEG and percutaneous cholecytectomy; the hernia was not repaired at the time. He also had a post op small bowel obstruction txed conservatively. 2. 07/24/18 LIH repair w/mesh 3. 08/23/19 repair incarcerated RIH w/mesh Home Medications Medication Instructions Recorded Finasteride 5 mg PO DAILY 03/12/18 Tamsulosin HCl 0.4 mg PO DAILY 03/12/18 Apixaban [Eliquis -] 5 mg PO BID #0 tablet 07/24/18 Mag Carb/Aluminum Hydrox/Algin 30 ml PO PRN PRN #0 oral.susp 06/02/19 [Gaviscon Liquid] Pantoprazole Sodium 40 mg PO DAILY 06/02/19 Docusate Sodium [Colace] 100 mg PO TID 30 Days #90 capsule 08/26/19 Allergies Allergy/AdvReac Type Severity Reaction Status Date / Time Fish Containing Products Allergy Verified 08/23/19 12:26 No Known Drug Allergies Allergy Verified 08/23/19 12:26 REVIEW OF SYSTEMS: CONSTITUTIONAL: Absent: fever, chills, diaphoresis, generalized weakness, malaise, loss of appetite, weight change CARDIOVASCULAR: Absent: chest pain, syncope, palpitations, irregular heart rate, lightheadedness, peripheral edema RESPIRATORY: Absent: cough, shortness of breath, dyspnea with exertion, wheezing, stridor, hemoptysis GASTROINTESTINAL: Present: abdominal pain, abdominal distension, nausea, vomiting, Absent:diarr hea, constipation, melena, hematochezia GENITOURINARY: Present: dysuria, frequency, urgency, hesitancy, hematuria, Absent: flank pain, genital pain MUSCULOSKELETAL: Present: myalgia, arthralgia, joint swelling, back pain, neck pain SKIN: Absent: rash, itching, pallor HEMATOLOGIC/IMMUNOLOGIC: Absent: easy bleeding, easy bruising, lymphadenopathy NEUROLOGIC: Absent: headache, focal weakness, paresthesias, dizziness, unsteady gait, seizure, mental status changes, bladder or bowel incontinence PSYCHIATRIC: Absent: anxiety, depression, suicidal or homicidal ideation, hallucinations. PHYSICAL EXAM: GENERAL: Awake, alert, and fully oriented, in no acute distress. HEAD: Normal with no signs of trauma. EYES: PERRL, sclera anicteric, conjunctiva clear. NECK: Normal ROM, supple without lymphadenopathy, JVD, or masses. ABDOMEN: Soft, slight tenderness to palpation, distended, absent bowel sounds, no guarding, no rebound, no masses. No organomegaly. Healed scars; no hernias. MUSCULOSKELETAL: Normal ROM at all joints. No bony deformities or tenderness. No CVA tenderness. UPPER EXTREMITIES: 2+ pulses, warm, well-perfused. No cyanosis. Cap refill <2 seconds. No peripheral edema. LOWER EXTREMITIES: 2+ pulses, warm, well-perfused. No calf tenderness. No peripheral edema. NEUROLOGICAL: Normal speech, gait not observed. PSYCH: Cooperative. Good eye contact. Appropriate mood and affect. SKIN: Warm, dry, normal turgor, no rashes or lesions noted. Vital Signs Temperature 97.7 F 06/29/20 14:30 Pulse Rate 82 06/29/20 14:30 Respiratory Rate 20 06/29/20 14:30 Blood Pressure 119/70 06/29/20 14:30 O2 Sat by Pulse Oximetry (%) 92 L 06/29/20 14:30 Lab Results WBC 9.7 K/mm3 (4.0-10.0) 06/29/20 07:06 RBC 5.20 M/mm3 (4.00-5.60) 06/29/20 07:06 Hgb 16.1 GM/dL (11.7-16.9) 06/29/20 07:06 Hct 47.9 % (35.4-49) 06/29/20 07:06 MCV 92.0 fl (80-96) 06/29/20 07:06 MCHC 33.6 g/dl (32.0-35.9) 06/29/20 07:06 RDW 12.7 % (11.9-15.9) 06/29/20 07:06 Plt Count 208 K/MM3 (134-434) 06/29/20 07:06 INR 1.06 (0.83-1.09) 06/28/20 14:40 Sodium 139 mmol/L (136-145) 06/29/20 07:06 Potassium 3.8 mmol/L (3.5-5.1) 06/29/20 07:06 Chloride 101 mmol/L (98-107) 06/29/20 07:06 Carbon Dioxide 28 mmol/L (21-32) 06/29/20 07:06 Anion Gap 10 MMOL/L (8-16) 06/29/20 07:06 BUN 12.6 mg/dL (7-18) 06/29/20 07:06 Creatinine 1.0 mg/dL (0.55-1.3) 06/29/20 07:06 Random Glucose 100 mg/dL (74-106) 06/29/20 07:06 Calcium 8.7 mg/dL (8.5-10.1) 06/29/20 07:06 Blood Type AB POSITIVE 06/28/20 14:40 Antibody Screen Negative 06/28/20 14:40 CT scan a/p reviewed IMP: SBO PMLAN: NPO/IVF/NGT/serial abdominal xrays; possible SBS and possible surgery; d/w the patient and his . Sam Barakat MD FACS
[2020-06-29] MEDS: ENOXAPARIN NA (PORCINE) 80 MG/0.8 ML DISP.SYRIN SQ SCH (21:59)
[2020-06-29] MEDS: LACTATED RINGERS SOLUTION 1,000 ML/1,000 ML INFUS.BAG IV SCH (22:00)
[2020-06-30] MEDS: PHENOL 177 ML SPRAY BOTTLE MM PRN ×2 (03:34→10:40)
[2020-06-30] MEDS: ACETAMINOPHEN 1000 MG/100 ML VIAL (NON FORMULARY) IVPB PRN ×2 (03:35→10:38)
[2020-06-30 08:51] LABS: ALBUMIN 2.8 g/dl (3.4-5.0); BILIRUBIN,TOTAL 2.6 mg/dL (0.2-1); BLOOD UREA NITROGEN 23.1 mg/dL (7-18); CALCIUM 8.4 mg/dL (8.5-10.1); CREATININE 0.9 mg/dL (0.55-1.3); POTASSIUM 3.4 mmol/L (3.5-5.1); TOT PROT 5.9 g/dl (6.4-8.2)
[2020-06-30 08:58] LABS: BASO % 0.3 % (0-2.0); EOS % 0.4 % (0-4.5); HEMATOCRIT 46.5 % (35.4-49); HEMOGLOBIN 15.5 GM/dL (11.7-16.9); LYMPH % 17.6 % (8-40); MCH 30.6 pg (25.7-33.7); MCHC 33.3 g/dl (32.0-35.9); MEAN CELL VOLUME 92.1 fl (80-96); MEAN PLT VOLUME 9.8 fl (7.5-11.1); NEUT % 66.7 % (42.8-82.8); PLATELET COUNT 197 K/MM3 (134-434); RBC 5.05 M/mm3 (4.00-5.60); RDW 13.2 % (11.9-15.9); WHITE BLOOD COUNT 7.3 K/mm3 (4.0-10.0)
--- NOTE | 2020-06-30 10:02 | PN ---
Progress Note (short form) - Note Progress Note: Surgery: Pt sates that he is having abd pain. No nasuea or emesis. No BM or flatus. Vital Signs Period Temp Pulse Resp BP Sys/Ceballos Pulse Ox Last 24 Hr 97.7 F-98.7 F 82-92 18-20 108-135/65-70 92-95 NGT: secured at 60 cm, and flushed with air to confirm placement in the stomach with auscultation GEN: A&0x3, appears uncomfortable ABD: distended, diffuse tenderness in his abd. No rebound. CBC, BMP 06/30/20 07:20 06/30/20 07:20 A/p: 84 yo male with SBO and history of multiple surgeries Recommend to continue NGT decompression and IV hydration AXR ordered for today hypokalemia, replete potassium and added mag/phos level Repeat labs and Abdomiinal xray ordered for the am d/W Dr. Barakat <Georgina Clayton - Last Filed: 06/30/20 10:16> - Note Progress Note: Attending Surgeon: I personally saw and examined the patient. My examination reveals a patient with an sbo. I discussed the case with the surgical PA and agree with their findings and plan of care with any exceptions as noted. ~ Sam Barakat MD, FACS <Sam Barakat - Last Filed: 07/06/20 15:36>
[2020-06-30] MEDS: ENOXAPARIN NA (PORCINE) 80 MG/0.8 ML DISP.SYRIN SQ SCH ×2 (10:39→21:27)
[2020-06-30 11:57] LABS: MAGNESIUM 2.3 mg/dL (1.8-2.4); PHOSPHOROUS 3.6 mg/dL (2.5-4.9)
[2020-06-30] MEDS: KCL 10 MEQ IVPB 10 MEQ/100 ML INFUS.BAG IVPB SCH ×3 (13:38→19:57)
--- NOTE | 2020-06-30 13:51 | PN ---
Progress Note, Physician History of Present Illness: Pt seen/ examined chart is reviewed awake No distress not passing gas yet at bedside - Current Medication List Current Medications: Active Medications Acetaminophen (Ofirmev Injection -) 1,000 mg IVPB Q6H PRN PRN Reason: PAIN LEVEL 4 - 6 Stop: 07/01/20 02:57 Last Admin: 06/30/20 10:38 Dose: 1,000 mg Documented by: Enoxaparin Sodium (Lovenox -) 80 mg SQ BID JUDY Last Admin: 06/30/20 10:39 Dose: 80 mg Documented by: Lactated Ringer's (Lactated Ringers Solution) 1,000 ml in 1,000 mls @ 75 mls/hr IV ASDIR JUDY Last Admin: 06/29/20 22:00 Dose: 75 mls/hr Documented by: Levofloxacin (Levaquin 500 Mg Premixed Ivpb -) 500 mg in 100 mls @ 100 mls/hr IVPB DAILY JUDY; Protocol Last Admin: 06/30/20 11:57 Dose: 100 mls/hr Documented by: Metronidazole (Flagyl 500mg Premixed Ivpb -) 500 mg in 100 mls @ 100 mls/hr IVPB Q8H-IV JUDY Last Admin: 06/30/20 10:38 Dose: 100 mls/hr Documented by: Pantoprazole Sodium (Protonix Iv) 40 mg IVPUSH DAILY JUDY Phenol/Menthol (Chloraseptic -) 1 spray MM Q6HPO PRN PRN Reason: SORE THROAT Last Admin: 06/30/20 10:40 Dose: 1 spray Documented by: - Objective Vital Signs: Vital Signs Temperature 99 F 06/30/20 10:07 Pulse Rate 81 06/30/20 10:07 Respiratory Rate 18 06/30/20 10:07 Blood Pressure 135/78 06/30/20 10:07 O2 Sat by Pulse Oximetry (%) 92 L 06/30/20 10:07 Constitutional: Yes: No Distress, Calm HENT: Yes: Other (NGT +) Neck: Yes: Supple Cardiovascular: Yes: Regular Rate and Rhythm Gastrointestinal: Yes: Soft (mild diffuse tenderness . Bowel sounds not Auscultated) Edema: No Neurological: Yes: Alert Psychiatric: Yes: Alert Labs: CBC, BMP 06/30/20 07:20 06/30/20 07:20 INR, PTT INR 1.06 (0.83-1.09) 06/28/20 14:40 Problem List - Problems (1) SBO (small bowel obstruction) Code(s): K56.609 - UNSP INTESTNL OBST, UNSP TO PARTIAL VERSUS COMPLETE OBST (2) Afib Code(s): I48.91 - UNSPECIFIED ATRIAL FIBRILLATION Qualifiers: Atrial fibrillation type: longstanding persistent Qualified Code(s): I48.11 - Longstanding persistent atrial fibrillation Assessment/Plan Discussed with pt/ / Rn Continue present care- Conservative for now Surgery following I/V protonix added monitor lytes Will follow Will order cxr also as not done
[2020-06-30] MEDS: PANTOPRAZOLE SODIUM 40 MG VIAL IVPUSH SCH (15:40)
[2020-06-30] MEDS: LACTATED RINGERS SOLUTION 1,000 ML/1,000 ML INFUS.BAG IV SCH (21:27)
[2020-07-01] MEDS ORDERED: PT OWN MED DRAWER 7, Y5N ONE (04:13)
[2020-07-01 08:39] LABS: BASO % 0.3 % (0-2.0); EOS % 0.6 % (0-4.5); HEMATOCRIT 44.8 % (35.4-49); HEMOGLOBIN 15.2 GM/dL (11.7-16.9); LYMPH % 15.3 % (8-40); MCH 31.6 pg (25.7-33.7); MEAN CELL VOLUME 92.8 fl (80-96); MEAN PLT VOLUME 9.6 fl (7.5-11.1); NEUT % 69.8 % (42.8-82.8); PLATELET COUNT 193 K/MM3 (134-434); RBC 4.83 M/mm3 (4.00-5.60); RDW 12.9 % (11.9-15.9); WHITE BLOOD COUNT 7.1 K/mm3 (4.0-10.0)
[2020-07-01 09:08] LABS: BLOOD UREA NITROGEN 24.1 mg/dL (7-18); CALCIUM 7.7 mg/dL (8.5-10.1); CREATININE 0.8 mg/dL (0.55-1.3); MAGNESIUM 2.1 mg/dL (1.8-2.4); PHOSPHOROUS 2.8 mg/dL (2.5-4.9); POTASSIUM 3.5 mmol/L (3.5-5.1)
[2020-07-01] MEDS: PANTOPRAZOLE SODIUM 40 MG VIAL IVPUSH SCH (09:51)
[2020-07-01] MEDS: PHENOL 177 ML SPRAY BOTTLE MM PRN (09:51)
--- NOTE | 2020-07-01 10:14 | PN ---
Progress Note (short form) - Note Progress Note: Attending Surgeon had 2 BM's +/-gas; NGT came out when he sneezed VSS T max 99.4 abdo-softly distended and minimal ttp WBC-nl IMP: SBO PLAN: Keep NPo w/NGT out for now; will reasses later today. Sam Barakat MD FACS
--- NOTE | 2020-07-01 11:16 | PN ---
Progress Note (short form) - Note Progress Note: at bedside. had 2 bm today nausea+ no pain in abdomen Vital Signs - 24 hr 06/30/20 06/30/20 06/30/20 14:00 18:00 21:00 Temperature 98.2 F 98.0 F Pulse Rate 86 84 Respiratory 18 18 18 Rate Blood Pressure 123/78 121/73 O2 Sat by Pulse 96 94 L 94 L Oximetry (%) 07/01/20 07/01/20 07/01/20 00:00 06:00 08:51 Temperature 99.4 F 98.8 F 99.1 F Pulse Rate 89 90 89 Respiratory 18 18 18 Rate Blood Pressure 133/75 136/75 129/68 O2 Sat by Pulse 94 L 93 L 95 Oximetry (%) Current Medications Generic Name Dose Route Start Last Admin Trade Name Freq PRN Reason Stop Dose Admin Enoxaparin Sodium 80 mg 06/29/20 22:00 06/30/20 21:27 Lovenox - SQ 80 mg BID JUDY Administration Lactated Ringer's 1,000 ml in 1,000 mls @ 75 mls/hr 06/28/20 22:11 06/30/20 21:27 Lactated Ringers Solution IV 75 mls/hr ASDIR JUDY Administration Levofloxacin 500 mg in 100 mls @ 100 mls/hr 06/29/20 12:30 07/01/20 11:10 Levaquin 500 Mg Premixed Ivpb - IVPB 100 mls/hr DAILY JUDY Administration Protocol Metronidazole 500 mg in 100 mls @ 100 mls/hr 06/29/20 12:30 07/01/20 09:50 Flagyl 500mg Premixed Ivpb - IVPB 100 mls/hr Q8H-IV JUDY Administration Pantoprazole Sodium 40 mg 06/30/20 14:00 07/01/20 09:51 Protonix Iv IVPUSH 40 mg DAILY JUDY Administration Phenol/Menthol 1 spray 06/30/20 02:55 07/01/20 09:51 Chloraseptic - MM 1 spray Q6HPO PRN Administration SORE THROAT Laboratory Results - last 24 hr 06/30/20 07/01/20 07/01/20 07:20 07:15 07:15 WBC 7.1 RBC 4.83 Hgb 15.2 Hct 44.8 MCV 92.8 MCH 31.6 MCHC 34.0 RDW 12.9 Plt Count 193 MPV 9.6 Absolute Neuts (auto) 5.0 Neutrophils % 69.8 Lymphocytes % 15.3 Monocytes % 14.0 H Eosinophils % 0.6 Basophils % 0.3 Nucleated RBC % 0 Sodium 140 142 Potassium 3.4 L 3.5 Chloride 102 104 Carbon Dioxide 28 24 Anion Gap 10 14 BUN 23.1 H 24.1 H Creatinine 0.9 0.8 Est GFR (CKD-EPI)AfAm 91.86 96.42 Est GFR (CKD-EPI)NonAf 79.26 83.19 Random Glucose 83 77 Calcium 8.4 L 7.7 L Phosphorus 3.6 2.8 Magnesium 2.3 2.1 Total Bilirubin 2.6 H AST 18 ALT 19 Alkaline Phosphatase 61 Total Protein 5.9 L Albumin 2.8 L S1, S2 irregular. Lungs clear. Abdomen soft,NT, minimal bs no edema plan keep nothing by mouth iv Antibiotics lovenox full dose IV fluids NG tube is out Surgical follow up noted Discussed with OOB daily Problem List - Problems (1) Abdominal pain Code(s): R10.9 - UNSPECIFIED ABDOMINAL PAIN Qualifiers: Abdominal location: unspecified location Qualified Code(s): R10.9 - Unspecified abdominal pain (2) Leukocytosis Code(s): D72.829 - ELEVATED WHITE BLOOD CELL COUNT, UNSPECIFIED (3) SBO (small bowel obstruction) Code(s): K56.609 - UNSP INTESTNL OBST, UNSP TO PARTIAL VERSUS COMPLETE OBST (4) Afib Code(s): I48.91 - UNSPECIFIED ATRIAL FIBRILLATION Qualifiers: Atrial fibrillation type: longstanding persistent Qualified Code(s): I48.11 - Longstanding persistent atrial fibrillation
[2020-07-01] MEDS: ENOXAPARIN NA (PORCINE) 80 MG/0.8 ML DISP.SYRIN SQ SCH ×2 (11:28→21:37)
[2020-07-01] MEDS: LACTATED RINGERS SOLUTION 1,000 ML/1,000 ML INFUS.BAG IV SCH ×2 (18:19→23:05)
[2020-07-01] MEDS ORDERED: ACETAMINOPHEN 1000 MG/100 ML VIAL (NON FORMULARY) IVPB ONE (22:21)
[2020-07-02 08:06] LABS: BLOOD UREA NITROGEN 18.7 mg/dL (7-18); CALCIUM 7.8 mg/dL (8.5-10.1); CREATININE 0.6 mg/dL (0.55-1.3); MAGNESIUM 2.1 mg/dL (1.8-2.4); POTASSIUM 3.3 mmol/L (3.5-5.1)
[2020-07-02] MEDS: PANTOPRAZOLE SODIUM 40 MG VIAL IVPUSH SCH (09:14)
[2020-07-02] MEDS: LACTATED RINGERS SOLUTION 1,000 ML/1,000 ML INFUS.BAG IV SCH ×2 (09:14→23:00)
[2020-07-02] MEDS: ENOXAPARIN NA (PORCINE) 80 MG/0.8 ML DISP.SYRIN SQ SCH ×2 (09:15→21:05)
--- NOTE | 2020-07-02 10:47 | PN ---
Progress Note (short form) - Note Progress Note: Attending Surgeon No flatus; BM x 2 yesterday; NGT was replaced VSS AF abdo-soft; distended; non tender. WBC-nl IMP: SBO PLAN: Continue same; possible small bowel series; may come to operative management Sam Barakat MD FACS
--- NOTE | 2020-07-02 11:24 | PN ---
Progress Note (short form) - Note Progress Note: no bm today nausea+ pain in abdomen+ NG tube in place Vital Signs - 24 hr 07/01/20 07/01/20 07/01/20 14:22 18:08 21:00 Temperature 98 F 98.2 F Pulse Rate 88 81 Respiratory 20 18 20 Rate Blood Pressure 133/65 128/76 O2 Sat by Pulse 94 L 94 L 97 Oximetry (%) 07/01/20 07/02/20 07/02/20 21:29 02:19 06:23 Temperature 98.1 F 98.7 F 98.4 F Pulse Rate 88 76 76 Respiratory 20 20 20 Rate Blood Pressure 139/67 121/60 132/64 O2 Sat by Pulse 97 94 L 96 Oximetry (%) 07/02/20 09:28 Temperature 99 F Pulse Rate 77 Respiratory 18 Rate Blood Pressure 131/69 O2 Sat by Pulse 95 Oximetry (%) Current Medications Generic Name Dose Route Start Last Admin Trade Name Freq PRN Reason Stop Dose Admin Enoxaparin Sodium 80 mg 06/29/20 22:00 07/02/20 09:15 Lovenox - SQ 80 mg BID JUDY Administration Lactated Ringer's 1,000 ml in 1,000 mls @ 75 mls/hr 06/28/20 22:11 07/02/20 09:14 Lactated Ringers Solution IV 75 mls/hr ASDIR JUDY Administration Levofloxacin 500 mg in 100 mls @ 100 mls/hr 06/29/20 12:30 07/02/20 09:14 Levaquin 500 Mg Premixed Ivpb - IVPB 100 mls/hr DAILY JUDY Administration Protocol Metronidazole 500 mg in 100 mls @ 100 mls/hr 06/29/20 12:30 07/02/20 09:14 Flagyl 500mg Premixed Ivpb - IVPB 100 mls/hr Q8H-IV JUDY Administration Potassium Chloride 10 meq in 100 mls @ 100 mls/hr 07/02/20 09:45 Potassium Chloride 10 Meq Premix Ivpb - IVPB 07/02/20 11:44 Q60M JUDY Pantoprazole Sodium 40 mg 06/30/20 14:00 07/02/20 09:14 Protonix Iv IVPUSH 40 mg DAILY JUDY Administration Phenol/Menthol 1 spray 06/30/20 02:55 07/01/20 09:51 Chloraseptic - MM 1 spray Q6HPO PRN Administration SORE THROAT Laboratory Results - last 24 hr 07/01/20 07/02/20 07/02/20 07:15 06:25 06:25 Sodium 142 Potassium 3.3 L Chloride 108 H Carbon Dioxide 24 Anion Gap 10 BUN 18.7 H Creatinine 0.6 Est GFR (CKD-EPI)AfAm 108.52 Est GFR (CKD-EPI)NonAf 93.63 Random Glucose 75 Calcium 7.8 L Magnesium 2.1 TSH 1.35 D Free T4 1.29 H Hep A IgM Ab Confirm Negative Hep Bs Antigen Negative Hep B Core IgM Ab Negative Hepatitis C Ab (EIA) <0.1 S1, S2 irregular. Lungs clear. Abdomen soft,NT, minimal bs no edema plan keep nothing by mouth iv Antibiotics lovenox full dose IV fluids replace potassium NG tube on suction Surgical follow up noted d/w surgeon small bowel series tomorrow OOB daily Problem List - Problems (1) Abdominal pain Code(s): R10.9 - UNSPECIFIED ABDOMINAL PAIN Qualifiers: Abdominal location: unspecified location Qualified Code(s): R10.9 - Unspecified abdominal pain (2) Leukocytosis Code(s): D72.829 - ELEVATED WHITE BLOOD CELL COUNT, UNSPECIFIED (3) SBO (small bowel obstruction) Code(s): K56.609 - UNSP INTESTNL OBST, UNSP TO PARTIAL VERSUS COMPLETE OBST (4) Afib Code(s): I48.91 - UNSPECIFIED ATRIAL FIBRILLATION Qualifiers: Atrial fibrillation type: longstanding persistent Qualified Code(s): I48.11 - Longstanding persistent atrial fibrillation
[2020-07-02] MEDS: KCL 10 MEQ IVPB 10 MEQ/100 ML INFUS.BAG IVPB SCH ×2 (13:29→14:54)
[2020-07-02] MEDS: ACETAMINOPHEN 1000 MG/100 ML VIAL (NON FORMULARY) IVPB PRN (16:45)
[2020-07-03] MEDS: LACTATED RINGERS SOLUTION 1,000 ML/1,000 ML INFUS.BAG IV SCH (01:22)
[2020-07-03 07:36] LABS: CALCIUM 7.6 mg/dL (8.5-10.1); CREATININE 0.5 mg/dL (0.55-1.3); MAGNESIUM 1.9 mg/dL (1.8-2.4); POTASSIUM 3.3 mmol/L (3.5-5.1)
[2020-07-03] MEDS: PANTOPRAZOLE SODIUM 40 MG VIAL IVPUSH SCH (09:28)
[2020-07-03] MEDS: ENOXAPARIN NA (PORCINE) 80 MG/0.8 ML DISP.SYRIN SQ SCH ×2 (09:32→21:01)
--- NOTE | 2020-07-03 10:05 | PN ---
Progress Note (short form) - Note Progress Note: Attending Surgeon No c/ ?; no flatus/no BM VSS AF abdo-softly distended; non tender; o/w normal WBC-nl NGT 250cc IMP: SBO PLAN: Imaging today; small bowel series tomorrow; possible OR; d/w the patient and his son Mukul and daughter in law Geetha. Sam Barakat MD FACS
--- NOTE | 2020-07-03 11:56 | PN ---
Progress Note (short form) - Note Progress Note: no bm today nausea+ pain in abdomen+ NG tube in place feels uncomfortable Vital Signs - 24 hr 07/02/20 07/02/20 07/02/20 13:55 18:35 20:16 Temperature 98.7 F 98.9 F 98.8 F Pulse Rate 74 70 68 Respiratory 20 20 20 Rate Blood Pressure 129/69 135/68 140/74 O2 Sat by Pulse 97 98 97 Oximetry (%) 07/02/20 07/03/20 07/03/20 20:17 07:00 08:56 Temperature 98.7 F 99 F Pulse Rate 73 73 Respiratory 20 18 18 Rate Blood Pressure 126/71 129/74 O2 Sat by Pulse 97 98 96 Oximetry (%) Current Medications Generic Name Dose Route Start Last Admin Trade Name Freq PRN Reason Stop Dose Admin Acetaminophen 1,000 mg 07/02/20 14:23 07/02/20 16:45 Ofirmev Injection - IVPB 1,000 mg Q8H PRN Administration PAIN 3-7 Enoxaparin Sodium 80 mg 06/29/20 22:00 07/03/20 09:32 Lovenox - SQ 80 mg BID JUDY Administration Levofloxacin 500 mg in 100 mls @ 100 mls/hr 06/29/20 12:30 07/03/20 11:29 Levaquin 500 Mg Premixed Ivpb - IVPB 100 mls/hr DAILY JUDY Administration Protocol Metronidazole 500 mg in 100 mls @ 100 mls/hr 06/29/20 12:30 07/03/20 09:28 Flagyl 500mg Premixed Ivpb - IVPB 100 mls/hr Q8H-IV JUDY Administration Potassium Chloride 10 meq in 100 mls @ 100 mls/hr 07/03/20 12:00 Potassium Chloride 10 Meq Premix Ivpb - IVPB 07/03/20 13:59 Q60M JUDY Potassium Chloride/Dextrose/Sod Cl 20 meq in 1,000 mls @ 83 mls/hr 07/03/20 12:00 D5-1/2ns+20 Meq Kcl - IV ASDIR JUDY Pantoprazole Sodium 40 mg 06/30/20 14:00 07/03/20 09:28 Protonix Iv IVPUSH 40 mg DAILY JUDY Administration Phenol/Menthol 1 spray 06/30/20 02:55 07/01/20 09:51 Chloraseptic - MM 1 spray Q6HPO PRN Administration SORE THROAT Laboratory Results - last 24 hr 07/03/20 06:50 Sodium 141 Potassium 3.3 L Chloride 106 Carbon Dioxide 22 Anion Gap 13 BUN 13.0 Creatinine 0.5 L Est GFR (CKD-EPI)AfAm 116.97 Est GFR (CKD-EPI)NonAf 100.92 Random Glucose 73 L Calcium 7.6 L Magnesium 1.9 S1, S2 irregular. Lungs clear. right arm lipoma Abdomen soft,NT, minimal bs no edema plan keep nothing by mouth iv Antibiotics lovenox full dose IV fluids replace potassium NG tube on suction Surgical follow up noted d/w surgeon small bowel series tomorrow FUA noted -->SBO OOB daily Problem List - Problems (1) Abdominal pain Code(s): R10.9 - UNSPECIFIED ABDOMINAL PAIN Qualifiers: Abdominal location: unspecified location Qualified Code(s): R10.9 - Unspecified abdominal pain (2) Leukocytosis Code(s): D72.829 - ELEVATED WHITE BLOOD CELL COUNT, UNSPECIFIED (3) SBO (small bowel obstruction) Code(s): K56.609 - UNSP INTESTNL OBST, UNSP TO PARTIAL VERSUS COMPLETE OBST (4) Afib Code(s): I48.91 - UNSPECIFIED ATRIAL FIBRILLATION Qualifiers: Atrial fibrillation type: longstanding persistent Qualified Code(s): I48.11 - Longstanding persistent atrial fibrillation
[2020-07-03] MEDS: D5-1/2NS+20 MEQ KCL - 20 MEQ/1,000 ML INFUS.BAG IV SCH (12:14)
[2020-07-03] MEDS: KCL 10 MEQ IVPB 10 MEQ/100 ML INFUS.BAG IVPB SCH ×2 (12:15→14:54)
[2020-07-03] MEDS: PHENOL 177 ML SPRAY BOTTLE MM PRN (14:55)
[2020-07-03] MEDS: ACETAMINOPHEN 1000 MG/100 ML VIAL (NON FORMULARY) IVPB PRN (17:10)
[2020-07-04] MEDS: D5-1/2NS+20 MEQ KCL - 20 MEQ/1,000 ML INFUS.BAG IV SCH ×2 (05:20→15:10)
[2020-07-04 07:34] LABS: HEMATOCRIT 43.3 % (35.4-49); HEMOGLOBIN 14.7 GM/dL (11.7-16.9); MCH 30.9 pg (25.7-33.7); MCHC 33.9 g/dl (32.0-35.9); PLATELET COUNT 207 K/MM3 (134-434); RBC 4.76 M/mm3 (4.00-5.60); RDW 13.1 % (11.9-15.9); WHITE BLOOD COUNT 7.2 K/mm3 (4.0-10.0)
[2020-07-04 07:52] LABS: BLOOD UREA NITROGEN 6.6 mg/dL (7-18); CALCIUM 7.5 mg/dL (8.5-10.1); CREATININE 0.5 mg/dL (0.55-1.3); MAGNESIUM 1.9 mg/dL (1.8-2.4); POTASSIUM 3.3 mmol/L (3.5-5.1)
--- NOTE | 2020-07-04 10:55 | PN ---
Progress Note (short form) - Note Progress Note: GENERAL SURGERY Continues to c/o ABD pain. Last recorded BM was on 07/01 (loose)...nothing since. Denies n/v/f/c, flatus, CP, palpitations, SOB or ALVAREZ. Last Vital Signs Temp Pulse Resp BP Pulse Ox 99.2 F 69 18 144/79 97 07/04/20 05:41 07/04/20 05:41 07/04/20 05:41 07/04/20 05:41 07/04/20 05:41 CBC, BMP 07/04/20 06:40 07/04/20 06:40 24 Hour NGT Output 07/03/20 07/03/20 07/04/20 07:00 18:21 06:21 NG Tube 250 600 300 Serology Test 06/28/20 00:25 COVID-19 ([facility]) Not detected GEN: A&0x3, appears uncomfortable ABD: distended. bowel sounds absent. diffuse ttp. No rebound. LE: all compartments soft A/P: 84 yo male with SBO and history of multiple surgeries. Hypokalemia. Patient very slow to progress. Abd remains distended. Fail to progress with conservative management. -Continue NGT decompression and record output q shift -IV hydration -GI PPx -DVT PPx -f/u SBS (ordered) -Replete elytes prn -Medical optimization / clearance for possible surgery Above plan discussed with Dr. Barakat and agrees. <Ignacio Laguna P - Last Filed: 07/04/20 11:02> - Note Progress Note: Attending Surgeon: I personally saw and examined the patient. My examination reveals a patient with sbo. I discussed the case with the surgical PA and agree with their findings and plan of care with any exceptions as noted. ~ Sam Barakat MD, FACS <Sam Barakat N - Last Filed: 07/04/20 17:29>
--- NOTE | 2020-07-04 11:19 | PN ---
Progress Note (short form) - Note Progress Note: no bm today nausea+ pain in abdomen+ NG tube in place feels uncomfortable Vital Signs - 24 hr 07/03/20 07/03/20 07/03/20 14:32 18:00 21:00 Temperature 98.8 F 97.8 F Pulse Rate 75 73 Respiratory 18 18 Rate Blood Pressure 133/82 153/84 O2 Sat by Pulse 97 95 96 Oximetry (%) 07/03/20 07/04/20 22:00 05:41 Temperature 98.5 F 99.2 F Pulse Rate 73 69 Respiratory 18 18 Rate Blood Pressure 116/63 144/79 O2 Sat by Pulse 96 97 Oximetry (%) Current Medications Generic Name Dose Route Start Last Admin Trade Name Freq PRN Reason Stop Dose Admin Acetaminophen 1,000 mg 07/02/20 14:23 07/03/20 17:10 Ofirmev Injection - IVPB 1,000 mg Q8H PRN Administration PAIN 3-7 Enoxaparin Sodium 80 mg 06/29/20 22:00 07/03/20 21:01 Lovenox - SQ 80 mg BID JUDY Administration Levofloxacin 500 mg in 100 mls @ 100 mls/hr 06/29/20 12:30 07/03/20 11:29 Levaquin 500 Mg Premixed Ivpb - IVPB 100 mls/hr DAILY JUDY Administration Protocol Metronidazole 500 mg in 100 mls @ 100 mls/hr 06/29/20 12:30 07/04/20 01:28 Flagyl 500mg Premixed Ivpb - IVPB 100 mls/hr Q8H-IV JUDY Administration Potassium Chloride/Dextrose/Sod Cl 20 meq in 1,000 mls @ 83 mls/hr 07/03/20 12:00 07/04/20 05:20 D5-1/2ns+20 Meq Kcl - IV 83 mls/hr ASDIR JUDY Administration Potassium Chloride 10 meq in 100 mls @ 100 mls/hr 07/04/20 11:30 Potassium Chloride 10 Meq Premix Ivpb - IVPB 07/04/20 13:29 Q60M JUDY Pantoprazole Sodium 40 mg 06/30/20 14:00 07/03/20 09:28 Protonix Iv IVPUSH 40 mg DAILY JUDY Administration Phenol/Menthol 1 spray 06/30/20 02:55 07/03/20 14:55 Chloraseptic - MM 1 spray Q6HPO PRN Administration SORE THROAT Laboratory Results - last 24 hr 07/04/20 07/04/20 06:40 06:40 WBC 7.2 RBC 4.76 Hgb 14.7 Hct 43.3 MCV 91.0 MCH 30.9 MCHC 33.9 RDW 13.1 Plt Count 207 MPV 9.0 Sodium 140 Potassium 3.3 L Chloride 109 H Carbon Dioxide 24 Anion Gap 8 BUN 6.6 L Creatinine 0.5 L Est GFR (CKD-EPI)AfAm 116.97 Est GFR (CKD-EPI)NonAf 100.92 Random Glucose 113 H Calcium 7.5 L Magnesium 1.9 S1, S2 irregular. Lungs clear. right arm lipoma Abdomen soft,NT, minimal bs no edema plan keep nothing by mouth iv Antibiotics zofran as needed lovenox full dose IV fluids replace potassium NG tube on suction Surgical follow up noted small bowel series today FUA noted -->SBO OOB daily Problem List - Problems (1) Abdominal pain Code(s): R10.9 - UNSPECIFIED ABDOMINAL PAIN Qualifiers: Abdominal location: unspecified location Qualified Code(s): R10.9 - Unspecified abdominal pain (2) Leukocytosis Code(s): D72.829 - ELEVATED WHITE BLOOD CELL COUNT, UNSPECIFIED (3) SBO (small bowel obstruction) Code(s): K56.609 - UNSP INTESTNL OBST, UNSP TO PARTIAL VERSUS COMPLETE OBST (4) Afib Code(s): I48.91 - UNSPECIFIED ATRIAL FIBRILLATION Qualifiers: Atrial fibrillation type: longstanding persistent Qualified Code(s): I48.11 - Longstanding persistent atrial fibrillation
--- NOTE | 2020-07-04 11:54 | EKG ---
Test Reason : Blood Pressure : / mmHG Vent. Rate : 088 BPM Atrial Rate : 088 BPM P-R Int : 196 ms QRS Dur : 072 ms QT Int : 390 ms P-R-T Axes : 049 -17 034 degrees QTc Int : 471 ms POOR DATA QUALITY, INTERPRETATION MAY BE ADVERSELY AFFECTED NORMAL SINUS RHYTHM NORMAL ECG Confirmed by MD JERAMIE, NILSON ([id number]) on 07/04/2020 11:54:09 AM Referred By: Confirmed By:NILSON BOBO MD
[2020-07-04 12:05] VITALS: BMI 24.0
[2020-07-04] MEDS ORDERED: ONDANSETRON 4 MG/2 ML VIAL IVPUSH PRN (12:40)
[2020-07-04] MEDS: PANTOPRAZOLE SODIUM 40 MG VIAL IVPUSH SCH (13:10)
[2020-07-04] MEDS: ENOXAPARIN NA (PORCINE) 80 MG/0.8 ML DISP.SYRIN SQ SCH ×2 (13:10→22:58)
[2020-07-04] MEDS ORDERED: PT OWN MED DRAWER 7, Y5N ONE ×2 (14:29→14:31)
[2020-07-04] MEDS: KCL 10 MEQ IVPB 10 MEQ/100 ML INFUS.BAG IVPB SCH ×2 (16:43→23:26)
[2020-07-04] MEDS ORDERED: KCL 10 MEQ IVPB 10 MEQ/100 ML INFUS.BAG IVPB SCH (23:00)
[2020-07-05] MEDS: D5-1/2NS+20 MEQ KCL - 20 MEQ/1,000 ML INFUS.BAG IV SCH ×3 (06:54→22:02)
[2020-07-05] MEDS: PANTOPRAZOLE SODIUM 40 MG VIAL IVPUSH SCH (10:10)
[2020-07-05] MEDS: ENOXAPARIN NA (PORCINE) 80 MG/0.8 ML DISP.SYRIN SQ SCH ×2 (10:16→21:48)
--- NOTE | 2020-07-05 12:16 | PN ---
Progress Note (short form) - Note Progress Note: he had bm today and yesterday-- soft stools NG tube in place abdomen does not have that "pressure"feeling no nausea Vital Signs - 24 hr 07/04/20 07/04/20 07/04/20 14:58 21:00 22:00 Temperature 98.2 F 98.6 F Pulse Rate 76 79 Respiratory 18 18 Rate Blood Pressure 142/78 120/80 O2 Sat by Pulse 92 L 92 L Oximetry (%) 07/05/20 07/05/20 06:20 10:00 Temperature 98.6 F 98.9 F Pulse Rate 77 77 Respiratory 18 20 Rate Blood Pressure 133/76 123/75 O2 Sat by Pulse 97 97 Oximetry (%) Current Medications Generic Name Dose Route Start Last Admin Trade Name Freq PRN Reason Stop Dose Admin Acetaminophen 1,000 mg 07/02/20 14:23 07/03/20 17:10 Ofirmev Injection - IVPB 1,000 mg Q8H PRN Administration PAIN 3-7 Enoxaparin Sodium 80 mg 06/29/20 22:00 07/05/20 10:16 Lovenox - SQ 80 mg BID JUDY Administration Levofloxacin 500 mg in 100 mls @ 100 mls/hr 06/29/20 12:30 07/05/20 11:18 Levaquin 500 Mg Premixed Ivpb - IVPB 100 mls/hr DAILY JUDY Administration Protocol Metronidazole 500 mg in 100 mls @ 100 mls/hr 06/29/20 12:30 07/05/20 10:09 Flagyl 500mg Premixed Ivpb - IVPB 100 mls/hr Q8H-IV JUDY Administration Potassium Chloride/Dextrose/Sod Cl 20 meq in 1,000 mls @ 83 mls/hr 07/03/20 12:00 07/05/20 06:54 D5-1/2ns+20 Meq Kcl - IV 83 mls/hr ASDIR JUDY Administration Ondansetron HCl 4 mg 07/04/20 12:40 Zofran Injection IVPUSH Q6H PRN NAUSEA AND/OR VOMITING Pantoprazole Sodium 40 mg 06/30/20 14:00 07/05/20 10:10 Protonix Iv IVPUSH 40 mg DAILY JUDY Administration Phenol/Menthol 1 spray 06/30/20 02:55 07/03/20 14:55 Chloraseptic - MM 1 spray Q6HPO PRN Administration SORE THROAT S1, S2 irregular. Lungs clear. right arm lipoma Abdomen soft,NT, minimal bs no edema plan keep nothing by mouth Xray abd- noted-- high grade SBO Small bowel series noted pt has bm iv Antibiotics zofran as needed lovenox full dose IV fluids check lytes NG tube on suction OOB daily Problem List - Problems (1) Abdominal pain Code(s): R10.9 - UNSPECIFIED ABDOMINAL PAIN Qualifiers: Abdominal location: unspecified location Qualified Code(s): R10.9 - Unspecified abdominal pain (2) Leukocytosis Code(s): D72.829 - ELEVATED WHITE BLOOD CELL COUNT, UNSPECIFIED (3) SBO (small bowel obstruction) Code(s): K56.609 - UNSP INTESTNL OBST, UNSP TO PARTIAL VERSUS COMPLETE OBST (4) Afib Code(s): I48.91 - UNSPECIFIED ATRIAL FIBRILLATION Qualifiers: Atrial fibrillation type: longstanding persistent Qualified Code(s): I48.11 - Longstanding persistent atrial fibrillation
--- NOTE | 2020-07-05 13:50 | PN ---
Progress Note (short form) - Note Progress Note: 84yo M h/o sbo, seen and examined at bedside. Pt states that he is feeling better and abd pain is improved. Pt denies n/v, fever, chills. Pt states he has had a BM yesterday and this morning. Last Vital Signs Temp Pulse Resp BP Pulse Ox 98.9 F 77 20 123/75 97 07/05/20 10:00 07/05/20 10:00 07/05/20 10:00 07/05/20 10:00 07/05/20 10:00 CBC, BMP 07/04/20 06:40 07/04/20 06:40 PE: Gen: A&O X3 Resp: breathing comfortably Abd: soft, non distended, mild diffuse tenderness, NGT in place with bilious drainage. <Rommel Dowd - Last Filed: 07/05/20 13:41> - Note Progress Note: Attending Surgeon: I personally saw and examined the patient. My examination reveals a patient with an sbo. I discussed the case with the surgical PA and agree with their findings and plan of care with any exceptions as noted. ~ Sam Barakat MD, FACS <Sam Barakat - Last Filed: 07/06/20 15:35> Problem List - Problems (1) SBO (small bowel obstruction) Assessment/Plan: Plan -pt appears to be improving, but will go slow as pt has complicated surgical history, will place NGT to gravity and hopefully remove tomorrow AM -NPO, IV fluids -dvt ppx Pt discussed with Dr. Barakat who agrees with plan Code(s): K56.609 - UNSP INTESTNL OBST, UNSP TO PARTIAL VERSUS COMPLETE OBST <Rommel Dowd - Last Filed: 07/05/20 13:41>
[2020-07-05] MEDS: ACETAMINOPHEN 1000 MG/100 ML VIAL (NON FORMULARY) IVPB PRN (16:46)
[2020-07-06 08:12] LABS: HEMATOCRIT 44.6 % (35.4-49); HEMOGLOBIN 15.1 GM/dL (11.7-16.9); MCH 30.8 pg (25.7-33.7); MCHC 33.8 g/dl (32.0-35.9); MEAN CELL VOLUME 91.1 fl (80-96); PLATELET COUNT 220 K/MM3 (134-434); RDW 12.6 % (11.9-15.9); WHITE BLOOD COUNT 6.4 K/mm3 (4.0-10.0)
[2020-07-06 08:17] LABS: ALBUMIN 2.5 g/dl (3.4-5.0); BILIRUBIN,TOTAL 1.2 mg/dL (0.2-1); BLOOD UREA NITROGEN 4.8 mg/dL (7-18); CALCIUM 7.9 mg/dL (8.5-10.1); CREATININE 0.5 mg/dL (0.55-1.3); POTASSIUM 3.3 mmol/L (3.5-5.1); TOT PROT 5.4 g/dl (6.4-8.2); URIC ACID 3.1 mg/dL (2.6-7.2)
[2020-07-06] MEDS: ENOXAPARIN NA (PORCINE) 80 MG/0.8 ML DISP.SYRIN SQ SCH (09:37)
[2020-07-06] MEDS: PANTOPRAZOLE SODIUM 40 MG VIAL IVPUSH SCH (09:37)
--- NOTE | 2020-07-06 10:05 | PN ---
Progress Note (short form) - Note Progress Note: Surgery: Pt without nausea. He had a small bm this am. NGT: secured at 60 cm, 550ml GEN: A&0x3, appears uncomfortable ABD: distended, Mild right sided abd pain. No rebound. CBC, BMP 07/06/20 06:40 07/06/20 06:40 A/p: 84 yo male with SBO and history of multiple surgeries Recommend to continue NGT decompression and IV hydration AXR ordered for today Hypokalemia, repleted today f/u am labs. BMP in the am D/w Dr. Barakat <Georgina Clayton - Last Filed: 07/06/20 10:12> - Note Progress Note: Attending Surgeon: I personally saw and examined the patient. My examination reveals a patient with an sbo. I discussed the case with the surgical PA and agree with their findings and plan of care with any exceptions as noted. ~ Sam Barakat MD, FACS <Sam Barakat - Last Filed: 07/06/20 15:34>
--- NOTE | 2020-07-06 11:39 | PN ---
Progress Note (short form) - Note Progress Note: small amount bm today no abd pain Vital Signs - 24 hr 07/05/20 07/05/20 07/06/20 18:54 21:00 00:00 Temperature 98.2 F 98.0 F Pulse Rate 79 83 Respiratory 18 18 18 Rate Blood Pressure 124/74 125/71 O2 Sat by Pulse 95 97 97 Oximetry (%) 07/06/20 07/06/20 07/06/20 06:00 08:46 09:00 Temperature 98.1 F 98.3 F Pulse Rate 81 78 Respiratory 18 16 Rate Blood Pressure 129/65 121/70 O2 Sat by Pulse 95 96 96 Oximetry (%) Current Medications Generic Name Dose Route Start Last Admin Trade Name Freq PRN Reason Stop Dose Admin Acetaminophen 1,000 mg 07/07/20 01:00 Ofirmev Injection - IVPB Q8H JUDY Enoxaparin Sodium 80 mg 07/07/20 10:00 Lovenox - SQ BID JUDY Lactated Ringer's 1,000 mls @ 75 mls/hr 07/06/20 18:00 Lactated Ringers Solution IV ASDIR [facility] Morphine Sulfate 2 mg 07/06/20 18:16 Morphine Sulfate IVPUSH Q6H PRN PAIN LEVEL 7 - 10 Ondansetron HCl 4 mg 07/06/20 18:16 Zofran Injection IVPUSH Q6H PRN NAUSEA AND/OR VOMITING Pantoprazole Sodium 40 mg 07/07/20 10:00 Protonix Iv IVPUSH DAILY [facility] Phenol/Menthol 1 spray 07/06/20 18:16 Chloraseptic - MM Q6HPO PRN SORE THROAT Laboratory Results - last 24 hr 07/06/20 07/06/20 07/06/20 06:40 06:40 06:40 WBC 6.4 RBC 4.90 Hgb 15.1 Hct 44.6 MCV 91.1 MCH 30.8 MCHC 33.8 RDW 12.6 Plt Count 220 MPV 9.0 ESR 10 Sodium 138 Potassium 3.3 L Chloride 106 Carbon Dioxide 24 Anion Gap 8 BUN 4.8 L Creatinine 0.5 L Est GFR (CKD-EPI)AfAm 116.97 Est GFR (CKD-EPI)NonAf 100.92 Random Glucose 121 H Uric Acid 3.1 Calcium 7.9 L Total Bilirubin 1.2 H AST 28 ALT 28 Alkaline Phosphatase 48 Total Protein 5.4 L Albumin 2.5 L S1, S2 irregular. Lungs clear. right arm lipoma Abdomen soft,NT, minimal bs no edema plan keep nothing by mouth Xray abd- noted-- high grade SBO Small bowel series noted pt has bm iv Antibiotics zofran as needed lovenox full dose IV fluids replace potassium may need to proceed with surgery check lytes NG tube on suction OOB daily Problem List - Problems (1) Abdominal pain Code(s): R10.9 - UNSPECIFIED ABDOMINAL PAIN Qualifiers: Abdominal location: unspecified location Qualified Code(s): R10.9 - Unspecified abdominal pain (2) Leukocytosis Code(s): D72.829 - ELEVATED WHITE BLOOD CELL COUNT, UNSPECIFIED (3) SBO (small bowel obstruction) Code(s): K56.609 - UNSP INTESTNL OBST, UNSP TO PARTIAL VERSUS COMPLETE OBST (4) Afib Code(s): I48.91 - UNSPECIFIED ATRIAL FIBRILLATION Qualifiers: Atrial fibrillation type: longstanding persistent Qualified Code(s): I48.11 - Longstanding persistent atrial fibrillation
[2020-07-06] MEDS: KCL 10 MEQ IVPB 10 MEQ/100 ML INFUS.BAG IVPB SCH ×3 (13:00→15:35)
[2020-07-06] MEDS: D5-1/2NS+20 MEQ KCL - 20 MEQ/1,000 ML INFUS.BAG IV SCH (13:01)
--- NOTE | 2020-07-06 14:56 | PN ---
Progress Note (short form) - Note Progress Note: Attending Surgeon We have exhausted all efforts at conservative tx. for this sbo; d/w the patient and his the need for operative intervention; the patient has signed informed consent for ex-lap; lysis of adhesions and possible bowel resection. Sam Barakat MD FACS
[2020-07-06] MEDS ORDERED: PROPOFOL 20 ML ONE (15:58)
[2020-07-06] MEDS ORDERED: ROCURONIUM BROMIDE 50 MG/5 ML SYRINGE ONE ×2 (15:58→17:01)
[2020-07-06] MEDS ORDERED: LIDOCAINE HCL 2% JELLY (5 ML/TUBE) ONE (16:05)
[2020-07-06] MEDS ORDERED: SUCCINYLCHOLINE CHLORIDE 200 MG/10 ML SYRINGE ONE (16:09)
[2020-07-06] MEDS ORDERED: PHENYLEPHRINE HCL 10 MG/1 ML SINGLE DOSE VIAL ONE (16:23)
[2020-07-06] MEDS ORDERED: ePHEDrine SULFATE 50 MG/1 ML AMPULE ONE (16:24)
[2020-07-06] MEDS ORDERED: HYDROmorphone HCl 2 MG/ML VIAL ONE (16:46)
[2020-07-06] MEDS ORDERED: METOPROLOL TARTRATE 5 MG/5 ML VIAL ONE (17:04)
[2020-07-06] MEDS ORDERED: NEOSTIGMINE METHYLSULFATE 0.5 MG/ML - 10 ML MDV ONE (17:17)
[2020-07-06] MEDS ORDERED: GLYCOPYRROLATE 0.2 MG/1 ML VIAL ONE (17:18)
[2020-07-06] MEDS ORDERED: ONDANSETRON 4 MG/2 ML VIAL IVPUSH PRN (17:48)
--- NOTE | 2020-07-06 17:53 | OP ---
Operative Note - Note: Operative Date: 07/06/20 Pre-Operative Diagnosis: small bowel obstruction Operation: laparotomy and lysis of adhesions Findings: adhesive bands to the abdominal wall as site of obstruction. Post-Operative Diagnosis: Same as Pre-op Surgeon: Sam Barakat Waste Picker: Georgina Clayton Anesthesiologist/ELECTRICIAN MAINTENANCE: Carlos Winters Anesthesia: General Specimens Removed: none Estimated Blood Loss (mls): 15
[2020-07-06] MEDS: LACTATED RINGERS SOLUTION 1,000 ML IV SCH (18:00)
[2020-07-06] MEDS ORDERED: PHENOL 177 ML SPRAY BOTTLE MM PRN (18:16)
[2020-07-06] MEDS ORDERED: METOPROLOL TARTRATE 5 MG/5 ML VIAL IVPUSH ONE (18:28)
[2020-07-06] MEDS: MORPHINE SULFATE 2 MG/ML VIAL IVPUSH PRN (23:14)
[2020-07-07] MEDS: ACETAMINOPHEN 1000 MG/100 ML VIAL (NON FORMULARY) IVPB SCH ×3 (00:14→17:23)
[2020-07-07] MEDS: MORPHINE SULFATE 2 MG/ML VIAL IVPUSH PRN ×2 (05:45→14:09)
[2020-07-07] MEDS: LACTATED RINGERS SOLUTION 1,000 ML IV SCH (05:55)
[2020-07-07 08:14] LABS: BASO % 0.1 % (0-2.0); EOS % 0.1 % (0-4.5); HEMATOCRIT 48.7 % (35.4-49); HEMOGLOBIN 16.4 GM/dL (11.7-16.9); LYMPH % 10.7 % (8-40); MCH 31.1 pg (25.7-33.7); MCHC 33.8 g/dl (32.0-35.9); MEAN PLT VOLUME 8.8 fl (7.5-11.1); MONO % 10.1 % (3.8-10.2); PLATELET COUNT 236 K/MM3 (134-434); RBC 5.29 M/mm3 (4.00-5.60); RDW 13.2 % (11.9-15.9); WHITE BLOOD COUNT 10.6 K/mm3 (4.0-10.0)
[2020-07-07 08:51] LABS: ALBUMIN 2.3 g/dl (3.4-5.0); BLOOD UREA NITROGEN 6.8 mg/dL (7-18); CALCIUM 7.9 mg/dL (8.5-10.1); CREATININE 0.5 mg/dL (0.55-1.3); MAGNESIUM 1.6 mg/dL (1.8-2.4); PHOSPHOROUS 2.9 mg/dL (2.5-4.9); POTASSIUM 3.8 mmol/L (3.5-5.1)
[2020-07-07 08:53] LABS: BILIRUBIN,TOTAL 1.1 mg/dL (0.2-1); TOT PROT 5.1 g/dl (6.4-8.2)
--- NOTE | 2020-07-07 09:34 | PN ---
Progress Note (short form) - Note Progress Note: Surgery: Pt without complaints of stomach pain today. No nausea. Vital Signs Period Temp Pulse Resp BP Sys/Ceballos Pulse Ox Last 24 Hr 97.5 F-98.9 F 77-109 16-20 119-176/75-105 94-100 NGT: secured at 70cm 550ml bilious material GEN: A&0x3, appears uncomfortable ABD: inc c/d/i. soft, non-distended, inc tenderness Laboratory Tests 07/07/20 07:31 Phosphorus 2.9 Magnesium 1.6 L CBC, BMP 07/07/20 07:31 07/07/20 07:31 A/p: 84 yo male with SBO and history of multiple surgeries, s/p exp laparotomy for SBO-lysis of adhesion, POD#1 Recommend to continue NGT decompression and IV hydration magnesium low today, replete today f/u am labs. BMP/mag/phos in the am Continue Lovenox 80mg SQ BID treatment for a fib D/w Dr. Barakat
[2020-07-07] MEDS ORDERED: POTASSIUM PHOSPHATE 15 MM in SODIUM CHLORIDE 250 ML IVPB ONE (09:40)
[2020-07-07] MEDS ORDERED: PT OWN MED DRAWER 7, Y5N ONE ×2 (09:44→15:47)
[2020-07-07] MEDS: PANTOPRAZOLE SODIUM 40 MG VIAL IVPUSH SCH (09:48)
[2020-07-07] MEDS: ENOXAPARIN NA (PORCINE) 80 MG/0.8 ML DISP.SYRIN SQ SCH ×2 (09:49→21:09)
[2020-07-07] MEDS ORDERED: MAGNESIUM 2GM/50ML STERILE WATER IVPB IVPB ONE (10:00)
--- NOTE | 2020-07-07 13:15 | PN ---
Progress Note, Physician History of Present Illness: Pt seen/ examined chart is reviewed awake comfortable pod # 2 s/p exp laparotomy for SBO-lysis of adhesion - Current Medication List Current Medications: Active Medications Acetaminophen (Ofirmev Injection -) 1,000 mg IVPB Q8H [facility] Last Admin: 07/07/20 08:56 Dose: 1,000 mg Documented by: Enoxaparin Sodium (Lovenox -) 80 mg SQ BID [facility] Last Admin: 07/07/20 09:49 Dose: 80 mg Documented by: Lactated Ringer's (Lactated Ringers Solution) 1,000 mls @ 75 mls/hr IV ASDIR [facility] Last Admin: 07/07/20 05:55 Dose: 75 mls/hr Documented by: Morphine Sulfate (Morphine Sulfate) 2 mg IVPUSH Q6H PRN PRN Reason: PAIN LEVEL 7 - 10 Last Admin: 07/07/20 05:45 Dose: 2 mg Documented by: Ondansetron HCl (Zofran Injection) 4 mg IVPUSH Q6H PRN PRN Reason: NAUSEA AND/OR VOMITING Pantoprazole Sodium (Protonix Iv) 40 mg IVPUSH DAILY [facility] Last Admin: 07/07/20 09:48 Dose: 40 mg Documented by: Phenol/Menthol (Chloraseptic -) 1 spray MM Q6HPO PRN PRN Reason: SORE THROAT - Objective Vital Signs: Vital Signs Temperature 98.5 F 07/07/20 08:15 Pulse Rate 97 H 07/07/20 08:15 Respiratory Rate 18 07/07/20 08:15 Blood Pressure 132/81 07/07/20 08:15 O2 Sat by Pulse Oximetry (%) 94 L 07/07/20 08:15 Constitutional: Yes: No Distress Neck: Yes: Supple Cardiovascular: Yes: Regular Rate and Rhythm Respiratory: Yes: Diminished Gastrointestinal: Yes: Soft Edema: No Neurological: Yes: Alert Labs: CBC, BMP 07/07/20 07:31 07/07/20 07:31 INR, PTT INR 1.06 (0.83-1.09) 06/28/20 14:40 Problem List - Problems (1) SBO (small bowel obstruction) Code(s): K56.609 - UNSP INTESTNL OBST, UNSP TO PARTIAL VERSUS COMPLETE OBST (2) Afib Code(s): I48.91 - UNSPECIFIED ATRIAL FIBRILLATION Qualifiers: Atrial fibrillation type: longstanding persistent Qualified Code(s): I48.11 - Longstanding persistent atrial fibrillation Assessment/Plan s/p exp laparotomy for SBO-lysis of adhesion, POD#2 Continue present care- Surgery following monitor lytes Will follow d/w Rn also
--- NOTE | 2020-07-07 13:16 | SURG ---
Surgery Spouter Note Spouter: Georgina Clayton PA-C Date of Service: 07/06/20 Diagnosis: small bowel obstruction Procedure: laparotomy and lysis of adhesions I was present for the entirety of the operative procedure. For further detail, please refer to operative report. Visit type - Case Type Case Type: ED Admission - Emergency Emergency Visit: Yes ED Registration Date: 06/28/20 Care time: The patient presented to the Emergency Department on the above date and was hospitalized for further evaluation of their emergent condition. - New patient This patient is new to me today: No
[2020-07-07] MEDS ORDERED: LACTATED RINGERS SOLUTION 1,000 ML IV SCH (14:01)
[2020-07-07] MEDS: AMINO ACIDS 4.25%/D5W 1,000 ML IV SCH (17:21)
[2020-07-08] MEDS: ACETAMINOPHEN 1000 MG/100 ML VIAL (NON FORMULARY) IVPB SCH ×3 (02:24→17:13)
[2020-07-08] MEDS: AMINO ACIDS 4.25%/D5W 1,000 ML IV SCH ×2 (03:19→17:12)
[2020-07-08 08:36] LABS: BASO % 0.1 % (0-2.0); EOS % 0.4 % (0-4.5); HEMATOCRIT 43.3 % (35.4-49); HEMOGLOBIN 14.7 GM/dL (11.7-16.9); LYMPH % 11.3 % (8-40); MCH 30.7 pg (25.7-33.7); MCHC 33.9 g/dl (32.0-35.9); MEAN CELL VOLUME 90.7 fl (80-96); MONO % 11.9 % (3.8-10.2); NEUT % 76.3 % (42.8-82.8); PLATELET COUNT 236 K/MM3 (134-434); RBC 4.78 M/mm3 (4.00-5.60); WHITE BLOOD COUNT 9.8 K/mm3 (4.0-10.0)
[2020-07-08 08:53] LABS: BLOOD UREA NITROGEN 10.5 mg/dL (7-18); CALCIUM 7.7 mg/dL (8.5-10.1); CREATININE 0.5 mg/dL (0.55-1.3); PHOSPHOROUS 1.6 mg/dL (2.5-4.9); POTASSIUM 3.3 mmol/L (3.5-5.1)
[2020-07-08] MEDS: ONDANSETRON 4 MG/2 ML VIAL IVPUSH PRN (09:08)
[2020-07-08] MEDS: ENOXAPARIN NA (PORCINE) 80 MG/0.8 ML DISP.SYRIN SQ SCH ×2 (09:14→21:16)
[2020-07-08] MEDS: PANTOPRAZOLE SODIUM 40 MG VIAL IVPUSH SCH (09:15)
--- NOTE | 2020-07-08 09:33 | PN ---
Progress Note, Physician History of Present Illness: Pt seen/ examined chart is reviewed awake no distress pod # 3 s/p exp laparotomy for SBO-lysis of adhesion not passing gas yet - Current Medication List Current Medications: Active Medications Acetaminophen (Ofirmev Injection -) 1,000 mg IVPB Q8H [facility] Last Admin: 07/08/20 09:06 Dose: 1,000 mg Documented by: Enoxaparin Sodium (Lovenox -) 80 mg SQ BID [facility] Last Admin: 07/08/20 09:14 Dose: 80 mg Documented by: Amino Acids (Clinimix -) 1,000 mls @ 84 mls/hr IV Q12H [facility] Last Admin: 07/08/20 03:19 Dose: 84 mls/hr Documented by: Morphine Sulfate (Morphine Sulfate) 2 mg IVPUSH Q6H PRN PRN Reason: PAIN LEVEL 7 - 10 Last Admin: 07/07/20 14:09 Dose: 2 mg Documented by: Ondansetron HCl (Zofran Injection) 4 mg IVPUSH Q6H PRN PRN Reason: NAUSEA AND/OR VOMITING Last Admin: 07/08/20 09:08 Dose: 4 mg Documented by: Pantoprazole Sodium (Protonix Iv) 40 mg IVPUSH DAILY [facility] Last Admin: 07/08/20 09:15 Dose: 40 mg Documented by: Phenol/Menthol (Chloraseptic -) 1 spray MM Q6HPO PRN PRN Reason: SORE THROAT - Objective Vital Signs: Vital Signs Temperature 99.0 F 07/08/20 06:00 Pulse Rate 89 07/08/20 03:00 Respiratory Rate 19 07/08/20 06:00 Blood Pressure 138/75 07/08/20 06:00 O2 Sat by Pulse Oximetry (%) 97 07/08/20 06:00 Constitutional: Yes: No Distress Neck: Yes: Supple Cardiovascular: Yes: Regular Rate and Rhythm Respiratory: Yes: CTA Bilaterally Gastrointestinal: Yes: Other (tympanic/ tense / mild generalized tenderness) Edema: No Neurological: Yes: Alert Labs: CBC, BMP 07/08/20 07:31 07/08/20 07:31 INR, PTT INR 1.06 (0.83-1.09) 06/28/20 14:40 Problem List - Problems (1) SBO (small bowel obstruction) Code(s): K56.609 - UNSP INTESTNL OBST, UNSP TO PARTIAL VERSUS COMPLETE OBST (2) Afib Code(s): I48.91 - UNSPECIFIED ATRIAL FIBRILLATION Qualifiers: Atrial fibrillation type: longstanding persistent Qualified Code(s): I48.11 - Longstanding persistent atrial fibrillation Assessment/Plan s/p exp laparotomy for SBO-lysis of adhesion, POD#3 Continue present care- Surgery following monitor lytes check kub Will follow d/w Rn also
[2020-07-08] MEDS: KCL 10 MEQ IVPB 10 MEQ/100 ML INFUS.BAG IVPB SCH ×3 (10:27→13:18)
--- NOTE | 2020-07-08 12:15 | PN ---
Progress Note (short form) - Note Progress Note: Attending Surgeon POD#2 No flatus/no BM VSS AF abdo-soft; less distended and tympanitic; incision c/d/i K 3.3 IMP: improving PLAN: OOB; replace K; continue NPO/IVF/Clinimix and NGT Sam Barakat MD FACS
[2020-07-08] MEDS: MORPHINE SULFATE 2 MG/ML VIAL IVPUSH PRN (21:49)
[2020-07-09] MEDS: ACETAMINOPHEN 1000 MG/100 ML VIAL (NON FORMULARY) IVPB SCH ×3 (01:35→17:52)
[2020-07-09] MEDS: AMINO ACIDS 4.25%/D5W 1,000 ML IV SCH ×2 (01:39→14:56)
[2020-07-09] MEDS: PANTOPRAZOLE SODIUM 40 MG VIAL IVPUSH SCH (09:13)
[2020-07-09] MEDS: ENOXAPARIN NA (PORCINE) 80 MG/0.8 ML DISP.SYRIN SQ SCH ×2 (09:14→21:45)
--- NOTE | 2020-07-09 10:39 | PN ---
Progress Note (short form) - Note Progress Note: Attending Surgeon POD#3 feels better but no flatus and/or BM VSS AF abdo-softly distended and tympanitic; incision c/d/i; panda in place K and Phosphorous low IMP; stable PLAN: Contiinue NPO/NGT/IV/replete K and phosphorous/await return of bowel function. Sam Barakat MD FACS
--- NOTE | 2020-07-09 11:05 | PN ---
Progress Note, Physician History of Present Illness: Pt seen/ examined chart is reviewed awake no distress feels better than yesterday pod # 4 s/p exp laparotomy for SBO-lysis of adhesion not passing gas yet - Current Medication List Current Medications: Active Medications Acetaminophen (Ofirmev Injection -) 1,000 mg IVPB Q8H [facility] Last Admin: 07/09/20 09:13 Dose: 1,000 mg Documented by: Enoxaparin Sodium (Lovenox -) 80 mg SQ BID [facility] Last Admin: 07/09/20 09:14 Dose: 80 mg Documented by: Amino Acids (Clinimix -) 1,000 mls @ 84 mls/hr IV Q12H [facility] Last Admin: 07/09/20 01:39 Dose: 84 mls/hr Documented by: Morphine Sulfate (Morphine Sulfate) 2 mg IVPUSH Q6H PRN PRN Reason: PAIN LEVEL 7 - 10 Last Admin: 07/08/20 21:49 Dose: 2 mg Documented by: Ondansetron HCl (Zofran Injection) 4 mg IVPUSH Q6H PRN PRN Reason: NAUSEA AND/OR VOMITING Last Admin: 07/08/20 09:08 Dose: 4 mg Documented by: Pantoprazole Sodium (Protonix Iv) 40 mg IVPUSH DAILY [facility] Last Admin: 07/09/20 09:13 Dose: 40 mg Documented by: Phenol/Menthol (Chloraseptic -) 1 spray MM Q6HPO PRN PRN Reason: SORE THROAT - Objective Vital Signs: Vital Signs Temperature 98.1 F 07/09/20 09:12 Pulse Rate 75 07/09/20 09:12 Respiratory Rate 18 07/09/20 09:12 Blood Pressure 125/54 L 07/09/20 09:12 O2 Sat by Pulse Oximetry (%) 95 07/09/20 09:12 Constitutional: Yes: No Distress, Calm HENT: Yes: Other (ngt +) Neck: Yes: Supple Cardiovascular: Yes: Regular Rate and Rhythm Respiratory: Yes: CTA Bilaterally Gastrointestinal: Yes: Soft, Tenderness Edema: No Neurological: Yes: Alert Labs: CBC, BMP 07/08/20 07:31 07/08/20 07:31 INR, PTT INR 1.06 (0.83-1.09) 06/28/20 14:40 Problem List - Problems (1) SBO (small bowel obstruction) Code(s): K56.609 - UNSP INTESTNL OBST, UNSP TO PARTIAL VERSUS COMPLETE OBST (2) Afib Code(s): I48.91 - UNSPECIFIED ATRIAL FIBRILLATION Qualifiers: Atrial fibrillation type: longstanding persistent Qualified Code(s): I48.11 - Longstanding persistent atrial fibrillation Assessment/Plan s/p exp laparotomy for SBO-lysis of adhesion, POD#4 Continue present care- Better K supplement yesterday Surgery following monitor kailey-- today pending Will follow d/w Rn also oob - chair
[2020-07-09 12:18] LABS: BASO % 0.4 % (0-2.0); EOS % 1.4 % (0-4.5); HEMATOCRIT 44.3 % (35.4-49); HEMOGLOBIN 15.2 GM/dL (11.7-16.9); LYMPH % 14.9 % (8-40); MCH 31.4 pg (25.7-33.7); MCHC 34.3 g/dl (32.0-35.9); MEAN CELL VOLUME 91.5 fl (80-96); MEAN PLT VOLUME 9.1 fl (7.5-11.1); MONO % 9.9 % (3.8-10.2); NEUT % 73.4 % (42.8-82.8); PLATELET COUNT 265 K/MM3 (134-434); RBC 4.85 M/mm3 (4.00-5.60); RDW 13.3 % (11.9-15.9); WHITE BLOOD COUNT 9.1 K/mm3 (4.0-10.0)
--- NOTE | 2020-07-09 12:51 | OP ---
DATE OF OPERATION: 07/06/2020 PREOPERATIVE DIAGNOSIS: Small-bowel obstruction. POSTOPERATIVE DIAGNOSIS: Small-bowel obstruction. PROCEDURE: Laparotomy and lysis of adhesions. SURGEON: Sam Barakat MD SHIP ENGINEER: Georgina Clayton PA-C ANESTHESIA: General. OPERATIVE FINDINGS: There were adhesive bands of the mid small-bowel to the abdominal wall as the site of obstruction. The rest of the findings were unremarkable. PROCEDURE: The patient was placed on the operating table in the supine position. After the induction of general anesthesia, the patient's abdomen was prepped with ChloraPrep and draped in a sterile fashion. Prior to this, a Scott catheter was placed and sequential compression devices placed on the patient's lower extremities. The abdomen was prepped with ChloraPrep and draped in a sterile fashion. Then a timeout was taken and the peritoneal cavity was entered through a midline incision start slightly above and extending slightly below the umbilicus for several centimeters in each direction. Upon entering the abdomen the previously noted findings were observed. Adhesions to the small-bowel were taken down where there appeared to be a rotation of the small-bowel around the adhesions and these were taken down using a combination of blunt and sharp dissection. Once these adhesions were taken down, the entire small-bowel was run from the terminal ileum back to the ligament of Treitz and there were no other areas of obstruction. The rest of the intraabdominal exploration was unremarkable and then small-bowel contents were milked back towards the stomach to be drained by the nasogastric tube which was on suction during the entirety of the procedure. Hemostasis was verified and noted to be good, and then the abdomen was closed in a single layer using 0 Maxon looped suture. The subcutaneous tissue was then irrigated and the skin edges reapproximated using some surgical panda. Dry sterile dressings were placed and the procedure terminated at this point and the patient aroused from general anesthesia and transferred to the postanesthesia care unit in stable condition awake and alert. ESTIMATED BLOOD LOSS: 15 mL REPLACEMENTS: Crystalloid. DRAINS: None. SPECIMEN: None. I, Sam Barakat, was physically present in the operating room from the time the patient was placed on the operating table until he was transferred to the postanesthesia care unit in my accompaniment. Sam Barakat MD /[id number] MTDAdrian
[2020-07-09 12:55] LABS: ALBUMIN 2.2 g/dl (3.4-5.0); BILIRUBIN,TOTAL 0.6 mg/dL (0.2-1); BLOOD UREA NITROGEN 16.2 mg/dL (7-18); CALCIUM 8.1 mg/dL (8.5-10.1); CREATININE 0.5 mg/dL (0.55-1.3); POTASSIUM 3.4 mmol/L (3.5-5.1); TOT PROT 5.2 g/dl (6.4-8.2)
[2020-07-09] MEDS: ONDANSETRON 4 MG/2 ML VIAL IVPUSH PRN (15:10)
[2020-07-09] MEDS: MORPHINE SULFATE 2 MG/ML VIAL IVPUSH PRN (15:10)
[2020-07-10] MEDS: ACETAMINOPHEN 1000 MG/100 ML VIAL (NON FORMULARY) IVPB SCH ×3 (00:17→16:23)
[2020-07-10] MEDS: AMINO ACIDS 4.25%/D5W 1,000 ML IV SCH ×2 (06:49→14:32)
--- NOTE | 2020-07-10 09:12 | PN ---
Progress Note (short form) - Note Progress Note: Surgery: Pt without complaints of stomach pain today. No nausea. Vital Signs Period Temp Pulse Resp BP Sys/Ceballos Pulse Ox Last 24 Hr 98.2 F-98.7 F 74-81 18-20 107-123/64-76 94-98 NGT: secured at 45-advanced to 57cm 210ml bilious material GEN: A&0x3, appears uncomfortable ABD: soft, slight distended, inc tenderness. Incision c/d/i CBC, BMP 07/09/20 11:40 07/09/20 11:40 Laboratory Tests 07/08/20 07/09/20 07:31 11:40 Phosphorus 1.6 L Magnesium 2.0 A/p: 84 yo male with SBO and history of multiple surgeries, s/p exp laparotomy for SBO-lysis of adhesion, POD#4 NGT placed to bedside drainage BMP/mag/phos ordered STAT for today Continue Lovenox 80mg SQ BID treatment for a fib PT for mobilization. OOB to chair/ambulate D/w Dr. Barakat
[2020-07-10] MEDS ORDERED: PT OWN MED DRAWER 7, Y5N ONE (09:17)
[2020-07-10] MEDS: ENOXAPARIN NA (PORCINE) 80 MG/0.8 ML DISP.SYRIN SQ SCH ×2 (09:19→21:11)
[2020-07-10] MEDS: PANTOPRAZOLE SODIUM 40 MG VIAL IVPUSH SCH (09:57)
--- NOTE | 2020-07-10 12:35 | PN ---
Progress Note, Physician History of Present Illness: Pt seen/ examined chart is reviewed awake no distress Not feels well today but no specific complains pod # 5 s/p exp laparotomy for SBO-lysis of adhesion not passing gas yet Surgical f/u noted Labs has been ordered for today - Current Medication List Current Medications: Active Medications Acetaminophen (Ofirmev Injection -) 1,000 mg IVPB Q8H [facility] Last Admin: 07/10/20 09:19 Dose: 1,000 mg Documented by: Enoxaparin Sodium (Lovenox -) 80 mg SQ BID [facility] Last Admin: 07/10/20 09:19 Dose: 80 mg Documented by: Amino Acids (Clinimix -) 1,000 mls @ 84 mls/hr IV Q12H [facility] Last Admin: 07/10/20 06:49 Dose: 84 mls/hr Documented by: Ondansetron HCl (Zofran Injection) 4 mg IVPUSH Q6H PRN PRN Reason: NAUSEA AND/OR VOMITING Last Admin: 07/09/20 15:10 Dose: 4 mg Documented by: Pantoprazole Sodium (Protonix Iv) 40 mg IVPUSH DAILY [facility] Last Admin: 07/10/20 09:57 Dose: 40 mg Documented by: Phenol/Menthol (Chloraseptic -) 1 spray MM Q6HPO PRN PRN Reason: SORE THROAT - Objective Vital Signs: Vital Signs Temperature 97.7 F 07/10/20 11:00 Pulse Rate 82 07/10/20 11:00 Respiratory Rate 20 07/10/20 11:00 Blood Pressure 126/64 07/10/20 11:00 O2 Sat by Pulse Oximetry (%) 95 07/10/20 11:00 Constitutional: Yes: No Distress HENT: Yes: Other (ngt +) Neck: Yes: Supple Cardiovascular: Yes: Regular Rate and Rhythm Respiratory: Yes: CTA Bilaterally Gastrointestinal: Yes: Soft, Other (mild diffuse tenderness + No rebound .) Edema: No Neurological: Yes: Alert Labs: CBC, BMP 07/09/20 11:40 07/09/20 11:40 INR, PTT INR 1.06 (0.83-1.09) 06/28/20 14:40 Problem List - Problems (1) SBO (small bowel obstruction) Code(s): K56.609 - UNSP INTESTNL OBST, UNSP TO PARTIAL VERSUS COMPLETE OBST (2) Afib Code(s): I48.91 - UNSPECIFIED ATRIAL FIBRILLATION Qualifiers: Atrial fibrillation type: longstanding persistent Qualified Code(s): I48.11 - Longstanding persistent atrial fibrillation Assessment/Plan s/p exp laparotomy for SBO-lysis of adhesion, POD#5 Continue present care- Surgery following monitor lytes-- today pending Will follow d/w Rn also oob - chair.
[2020-07-10 13:03] LABS: BASO % 0.3 % (0-2.0); EOS % 1.8 % (0-4.5); HEMOGLOBIN 15.1 GM/dL (11.7-16.9); LYMPH % 20.5 % (8-40); MCH 31.5 pg (25.7-33.7); MCHC 34.2 g/dl (32.0-35.9); MEAN PLT VOLUME 8.8 fl (7.5-11.1); MONO % 9.3 % (3.8-10.2); NEUT % 68.1 % (42.8-82.8); PLATELET COUNT 292 K/MM3 (134-434); RBC 4.79 M/mm3 (4.00-5.60); RDW 13.3 % (11.9-15.9); WHITE BLOOD COUNT 7.8 K/mm3 (4.0-10.0)
[2020-07-10 13:27] LABS: BILIRUBIN,TOTAL 0.8 mg/dL (0.2-1); BLOOD UREA NITROGEN 18.9 mg/dL (7-18); CALCIUM 8.2 mg/dL (8.5-10.1); CREATININE 0.7 mg/dL (0.55-1.3); MAGNESIUM 2.1 mg/dL (1.8-2.4); PHOSPHOROUS 2.6 mg/dL (2.5-4.9); POTASSIUM 3.4 mmol/L (3.5-5.1); TOT PROT 5.8 g/dl (6.4-8.2)
[2020-07-10] MEDS: KCL 10 MEQ IVPB 10 MEQ/100 ML INFUS.BAG IVPB SCH ×3 (16:22→19:02)
[2020-07-11] MEDS: ACETAMINOPHEN 1000 MG/100 ML VIAL (NON FORMULARY) IVPB SCH ×2 (01:29→09:40)
[2020-07-11] MEDS: AMINO ACIDS 4.25%/D5W 1,000 ML IV SCH ×4 (01:42→16:53)
[2020-07-11 08:34] LABS: CALCIUM 8.1 mg/dL (8.5-10.1); CREATININE 0.6 mg/dL (0.55-1.3); POTASSIUM 3.3 mmol/L (3.5-5.1)
[2020-07-11] MEDS ORDERED: PT OWN MED DRAWER 7, Y5N ONE (10:46)
[2020-07-11] MEDS: ENOXAPARIN NA (PORCINE) 80 MG/0.8 ML DISP.SYRIN SQ SCH ×2 (10:50→22:12)
[2020-07-11] MEDS: POTASSIUM CHLORIDE TABS 20 MEQ TABLET.ER (FP) PO SCH ×2 (10:50→22:12)
[2020-07-11] MEDS: PANTOPRAZOLE SODIUM 40 MG VIAL IVPUSH SCH (10:51)
[2020-07-11] MEDS ORDERED: ACETAMINOPHEN 325 MG TABLET (FP) PO PRN (12:34)
--- NOTE | 2020-07-11 12:35 | PN ---
Progress Note (short form) - Note Progress Note: small amount bm today drinking clears s/p exp laparotomy for SBO-lysis of adhesion, POD#5 Vital Signs - 24 hr 07/10/20 07/10/20 07/10/20 17:02 20:32 20:34 Temperature 97.9 F 98.7 F Pulse Rate 72 73 Respiratory 20 20 20 Rate Blood Pressure 126/76 134/81 O2 Sat by Pulse 96 96 Oximetry (%) 07/11/20 07/11/20 06:54 14:42 Temperature 98.2 F 98.3 F Pulse Rate 72 81 Respiratory 20 20 Rate Blood Pressure 122/69 118/62 O2 Sat by Pulse 95 97 Oximetry (%) Current Medications Generic Name Dose Route Start Last Admin Trade Name Freq PRN Reason Stop Dose Admin Acetaminophen 650 mg 07/11/20 12:34 Tylenol - PO Q6H PRN PAIN 1-3 Enoxaparin Sodium 80 mg 07/07/20 10:00 07/11/20 10:50 Lovenox - SQ 80 mg BID [facility] Administration Amino Acids 1,000 mls @ 84 mls/hr 07/07/20 14:00 07/11/20 15:20 Clinimix - IV Not Given Q12H [facility] Ondansetron HCl 4 mg 07/06/20 18:16 07/09/20 15:10 Zofran Injection IVPUSH 4 mg Q6H PRN Administration NAUSEA AND/OR VOMITING Pantoprazole Sodium 40 mg 07/12/20 10:00 Protonix - PO DAILY [facility] Phenol/Menthol 1 spray 07/06/20 18:16 Chloraseptic - MM Q6HPO PRN SORE THROAT Potassium Chloride 20 meq 07/11/20 10:34 07/11/20 10:50 K-Dur - PO 07/12/20 22:01 20 meq BID [facility] Administration Laboratory Results - last 24 hr 07/11/20 07:10 Sodium 137 Potassium 3.3 L Chloride 106 Carbon Dioxide 26 Anion Gap 5 L BUN 16.0 Creatinine 0.6 Est GFR (CKD-EPI)AfAm 108.52 Est GFR (CKD-EPI)NonAf 93.63 Random Glucose 124 H Calcium 8.1 L S1, S2 irregular. Lungs clear. right arm lipoma Abdomen soft,NT,surgical wound noted with panda+ no edema plan tolerating clears replace lytes on IV CLinimix Lovenox full dose- may need to change back to PO ELiquis OOB daily Problem List - Problems (1) Abdominal pain Code(s): R10.9 - UNSPECIFIED ABDOMINAL PAIN Qualifiers: Abdominal location: unspecified location Qualified Code(s): R10.9 - Unspecified abdominal pain (2) Leukocytosis Code(s): D72.829 - ELEVATED WHITE BLOOD CELL COUNT, UNSPECIFIED (3) SBO (small bowel obstruction) Code(s): K56.609 - UNSP INTESTNL OBST, UNSP TO PARTIAL VERSUS COMPLETE OBST (4) Afib Code(s): I48.91 - UNSPECIFIED ATRIAL FIBRILLATION Qualifiers: Atrial fibrillation type: longstanding persistent Qualified Code(s): I48.11 - Longstanding persistent atrial fibrillation
[2020-07-11] MEDS: ONDANSETRON 4 MG/2 ML VIAL IVPUSH PRN (22:12)
[2020-07-12] MEDS: AMINO ACIDS 4.25%/D5W 1,000 ML IV SCH (06:14)
[2020-07-12 07:57] LABS: HEMATOCRIT 41.8 % (35.4-49); MCH 30.7 pg (25.7-33.7); MCHC 33.6 g/dl (32.0-35.9); MEAN CELL VOLUME 91.3 fl (80-96); MEAN PLT VOLUME 8.2 fl (7.5-11.1); PLATELET COUNT 320 K/MM3 (134-434); RBC 4.58 M/mm3 (4.00-5.60); RDW 13.4 % (11.9-15.9); WHITE BLOOD COUNT 6.1 K/mm3 (4.0-10.0)
[2020-07-12 08:40] LABS: POTASSIUM 3.6 mmol/L (3.5-5.1)
[2020-07-12 08:59] LABS: BLOOD UREA NITROGEN 15.5 mg/dL (7-18); CREATININE 0.5 mg/dL (0.55-1.3)
[2020-07-12] MEDS: POTASSIUM CHLORIDE TABS 20 MEQ TABLET.ER (FP) PO SCH ×2 (09:49→21:32)
[2020-07-12] MEDS: ENOXAPARIN NA (PORCINE) 80 MG/0.8 ML DISP.SYRIN SQ SCH ×2 (09:49→21:32)
[2020-07-12] MEDS: PANTOPRAZOLE 40 MG TABLET PO SCH (09:49)
--- NOTE | 2020-07-12 14:43 | PN ---
Progress Note (short form) - Note Progress Note: Surgery: Pt tolerated clears yesterday and had a bm. Vital Signs Period Temp Pulse Resp BP Sys/Ceballos Pulse Ox Last 24 Hr 97.9 F-98.5 F 75-76 20-20 114-125/62-76 95-99 GEN: A&0x3, appears uncomfortable ABD: soft, slight distended, inc tenderness. Incision c/d/i CBC, BMP 07/12/20 07:27 07/12/20 07:27 A/p: 84 yo male with SBO and history of multiple surgeries, s/p exp laparotomy for SBO-lysis of adhesion, POD#5 Advance diet to fulls and solid in the am if continues to have bowel function Hypokalemia improved today. Continue Lovenox 80mg SQ BID treatment for a fib PT for mobilization. OOB to chair/ambulate D/w Dr. Barakat
--- NOTE | 2020-07-12 14:44 | PN ---
Progress Note (short form) - Note Progress Note: Surgery: Pt tolerated clears yesterday and had a bm. Vital Signs Period Temp Pulse Resp BP Sys/Ceballos Pulse Ox Last 24 Hr 97.9 F-98.5 F 75-76 20-20 114-125/62-76 95-99 GEN: A&0x3, appears uncomfortable ABD: soft, slight distended, inc tenderness. Incision c/d/i CBC, BMP 07/12/20 07:27 07/12/20 07:27 A/p: 84 yo male with SBO and history of multiple surgeries, s/p exp laparotomy for SBO-lysis of adhesion, POD#5 Advance diet to fulls and solid in the am if continues to have bowel function Hypokalemia improved today. Kcl 20meq x 1 tonight Continue Lovenox 80mg SQ BID treatment for a fib PT for mobilization. OOB to chair/ambulate D/w Dr. Barakat
--- NOTE | 2020-07-12 18:53 | PN ---
Progress Note (short form) - Note Progress Note: bm today drinking clears s/p exp laparotomy for SBO-lysis of adhesion, POD#6 Vital Signs - 24 hr 07/11/20 07/12/20 07/12/20 20:19 07:00 13:00 Temperature 97.9 F 98.5 F 97.8 F Pulse Rate 76 75 78 Respiratory 20 20 20 Rate Blood Pressure 116/62 114/65 119/66 O2 Sat by Pulse 99 95 100 Oximetry (%) 07/12/20 16:25 Temperature 97.6 F Pulse Rate 81 Respiratory 20 Rate Blood Pressure 114/72 O2 Sat by Pulse Oximetry (%) Current Medications Generic Name Dose Route Start Last Admin Trade Name Freq PRN Reason Stop Dose Admin Acetaminophen 650 mg 07/11/20 12:34 Tylenol - PO Q6H PRN PAIN 1-3 Enoxaparin Sodium 80 mg 07/07/20 10:00 07/12/20 09:49 Lovenox - SQ 80 mg BID [facility] Administration Ondansetron HCl 4 mg 07/06/20 18:16 07/11/20 22:12 Zofran Injection IVPUSH 4 mg Q6H PRN Administration NAUSEA AND/OR VOMITING Pantoprazole Sodium 40 mg 07/12/20 10:00 07/12/20 09:49 Protonix - PO 40 mg DAILY [facility] Administration Phenol/Menthol 1 spray 07/06/20 18:16 Chloraseptic - MM Q6HPO PRN SORE THROAT Potassium Chloride 20 meq 07/11/20 10:34 07/12/20 09:49 K-Dur - PO 07/12/20 22:01 20 meq BID [facility] Administration Laboratory Results - last 24 hr 07/12/20 07/12/20 07:27 07:27 WBC 6.1 RBC 4.58 Hgb 14.0 Hct 41.8 MCV 91.3 MCH 30.7 MCHC 33.6 RDW 13.4 Plt Count 320 MPV 8.2 Sodium 139 Potassium 3.6 Chloride 108 H Carbon Dioxide 23 Anion Gap 8 BUN 15.5 Creatinine 0.5 L Est GFR (CKD-EPI)AfAm 116.97 Est GFR (CKD-EPI)NonAf 100.92 Random Glucose 127 H Calcium 8.0 L S1, S2 irregular. Lungs clear. right arm lipoma Abdomen soft,NT,surgical wound noted with panda+ no edema plan tolerating clears replace lytes off IV CLinimix Lovenox full dose- may need to change back to PO ELiquis clinically improving had a bm today OOB daily Problem List - Problems (1) Abdominal pain Code(s): R10.9 - UNSPECIFIED ABDOMINAL PAIN Qualifiers: Abdominal location: unspecified location Qualified Code(s): R10.9 - Unspecified abdominal pain (2) Leukocytosis Code(s): D72.829 - ELEVATED WHITE BLOOD CELL COUNT, UNSPECIFIED (3) SBO (small bowel obstruction) Code(s): K56.609 - UNSP INTESTNL OBST, UNSP TO PARTIAL VERSUS COMPLETE OBST (4) Afib Code(s): I48.91 - UNSPECIFIED ATRIAL FIBRILLATION Qualifiers: Atrial fibrillation type: longstanding persistent Qualified Code(s): I48.11 - Longstanding persistent atrial fibrillation
[2020-07-12] MEDS: ONDANSETRON 4 MG/2 ML VIAL IVPUSH PRN (21:32)
[2020-07-13 08:19] LABS: HEMATOCRIT 42.6 % (35.4-49); HEMOGLOBIN 14.3 GM/dL (11.7-16.9); MCH 30.6 pg (25.7-33.7); MCHC 33.5 g/dl (32.0-35.9); MEAN CELL VOLUME 91.3 fl (80-96); MEAN PLT VOLUME 8.4 fl (7.5-11.1); PLATELET COUNT 317 K/MM3 (134-434); RBC 4.67 M/mm3 (4.00-5.60); RDW 13.6 % (11.9-15.9); WHITE BLOOD COUNT 6.6 K/mm3 (4.0-10.0)
[2020-07-13 08:38] LABS: POTASSIUM 3.9 mmol/L (3.5-5.1)
[2020-07-13 09:21] LABS: CALCIUM 8.6 mg/dL (8.5-10.1); CREATININE 0.5 mg/dL (0.55-1.3); MAGNESIUM 1.9 mg/dL (1.8-2.4)
[2020-07-13] MEDS: PANTOPRAZOLE 40 MG TABLET PO SCH (10:40)
[2020-07-13] MEDS: APIXABAN 5 MG TABLET PO SCH ×2 (10:40→21:54)
--- NOTE | 2020-07-13 11:10 | PN ---
Progress Note (short form) - Note Progress Note: Surgery: Pt tolerated diet yesterday and a BM Vital Signs Period Temp Pulse Resp BP Sys/Ceballos Pulse Ox Last 24 Hr 97.6 F-98.9 F 76-81 20-20 105-124/59-72 93-100 GEN: A&0x3, appears uncomfortable ABD: soft, slight distended, inc tenderness. Incision c/d/i CBC, BMP 07/13/20 07:26 07/13/20 07:26 A/p: 84 yo male with SBO and history of multiple surgeries, s/p exp laparotomy for SBO-lysis of adhesion, POD#6 Advance diet to regular today Spoke with Dr Sage and discontinue lovenox and resumed eliquis this am PT for mobilization. OOB to chair/ambulate D/w Dr. Barakat, talitacarpatric planning to home if tolerates regular diet
--- NOTE | 2020-07-13 11:55 | PN ---
Progress Note (short form) - Note Progress Note: he has bm, but feels he is not evacuating completely started regular diet s/p exp laparotomy for SBO-lysis of adhesion, POD#7 Vital Signs - 24 hr 07/12/20 07/12/20 07/12/20 13:00 16:25 20:16 Temperature 97.8 F 97.6 F 98.9 F Pulse Rate 78 81 79 Respiratory 20 20 20 Rate Blood Pressure 119/66 114/72 124/67 O2 Sat by Pulse 100 97 Oximetry (%) 07/13/20 06:25 Temperature 98.7 F Pulse Rate 76 Respiratory 20 Rate Blood Pressure 105/59 L O2 Sat by Pulse 93 L Oximetry (%) Current Medications Generic Name Dose Route Start Last Admin Trade Name Freq PRN Reason Stop Dose Admin Acetaminophen 650 mg 07/11/20 12:34 Tylenol - PO Q6H PRN PAIN 1-3 Apixaban 5 mg 07/13/20 11:00 07/13/20 10:40 Eliquis - PO 5 mg BID JUDY Administration Ondansetron HCl 4 mg 07/06/20 18:16 07/12/20 21:32 Zofran Injection IVPUSH 4 mg Q6H PRN Administration NAUSEA AND/OR VOMITING Pantoprazole Sodium 40 mg 07/12/20 10:00 07/13/20 10:40 Protonix - PO 40 mg DAILY JUDY Administration Phenol/Menthol 1 spray 07/06/20 18:16 Chloraseptic - MM Q6HPO PRN SORE THROAT Laboratory Results - last 24 hr 07/13/20 07/13/20 07:26 07:26 WBC 6.6 RBC 4.67 Hgb 14.3 Hct 42.6 MCV 91.3 MCH 30.6 MCHC 33.5 RDW 13.6 Plt Count 317 MPV 8.4 Sodium 137 Potassium 3.9 Chloride 106 Carbon Dioxide 24 Anion Gap 7 L BUN 9.0 Creatinine 0.5 L Est GFR (CKD-EPI)AfAm 116.97 Est GFR (CKD-EPI)NonAf 100.92 Random Glucose 107 H Calcium 8.6 Magnesium 1.9 S1, S2 irregular. Lungs clear. right arm lipoma Abdomen soft,NT,surgical wound noted with panda+ no edema plan on regular diet changed to po Eliquis clinically improving OOB daily dc planning anticipate tomorrow spoke with Surgical PA - Georgina Problem List - Problems (1) Abdominal pain Code(s): R10.9 - UNSPECIFIED ABDOMINAL PAIN Qualifiers: Abdominal location: unspecified location Qualified Code(s): R10.9 - Unspecified abdominal pain (2) Leukocytosis Code(s): D72.829 - ELEVATED WHITE BLOOD CELL COUNT, UNSPECIFIED (3) SBO (small bowel obstruction) Code(s): K56.609 - UNSP INTESTNL OBST, UNSP TO PARTIAL VERSUS COMPLETE OBST (4) Afib Code(s): I48.91 - UNSPECIFIED ATRIAL FIBRILLATION Qualifiers: Atrial fibrillation type: longstanding persistent Qualified Code(s): I48.11 - Longstanding persistent atrial fibrillation
[2020-07-13] MEDS ORDERED: MAG HYDROX/AL HYDROX/SIMETH 30 ML UNIT-DOSE CUP PO PRN (17:00)
[2020-07-14] MEDS ORDERED: PT OWN MED DRAWER 7, Y5N ONE (09:01)
[2020-07-14] MEDS: PANTOPRAZOLE 40 MG TABLET PO SCH (09:14)
[2020-07-14] MEDS: APIXABAN 5 MG TABLET PO SCH (09:14)
[2020-07-14 11:08] VITALS: BP 121/66; PULSE 78; TEMP 98.5
--- NOTE | 2020-07-14 11:31 | PN ---
Progress Note (short form) - Note Progress Note: SURGERY Pt tolerated diet yesterday and a BM, pt states ready to g home. Last Vital Signs Temp Pulse Resp BP Pulse Ox 98.5 F 78 20 121/66 96 07/14/20 09:00 07/14/20 09:00 07/14/20 09:00 07/14/20 09:00 07/14/20 09:00 GEN: A&0x3, appears uncomfortable ABD: soft, slight distended, inc tenderness. Incision c/d/i A/p: 84 yo male with SBO and history of multiple surgeries, s/p exp laparotomy for SBO-lysis of adhesion, POD#7 Pt appears to be doing well, pt cleared for discharge from surgery standpoint. Pt should follow up with Dr. Barakat in the office next week. Pt seen and examined with Dr. Barakat who agrees with plan. Problem List - Problems (1) SBO (small bowel obstruction) Code(s): K56.609 - UNSP INTESTNL OBST, UNSP TO PARTIAL VERSUS COMPLETE OBST
--- NOTE | 2020-07-14 11:56 | DS ---
Physical Examination Vital Signs: Vital Signs Temperature 98.5 F 07/14/20 09:00 Pulse Rate 78 07/14/20 09:00 Respiratory Rate 20 07/14/20 09:00 Blood Pressure 121/66 07/14/20 09:00 O2 Sat by Pulse Oximetry (%) 96 07/14/20 09:00 Findings/Remarks: Pt seen/ examined chart is reviewed Awake/ comfortable denies pain Having BM sitting in chair Excited to go home Constitutional: Yes: No Distress Neck: Yes: Supple Cardiovascular: Yes: Regular Rate and Rhythm Respiratory: Yes: CTA Bilaterally Gastrointestinal: Yes: Soft, Other (surgical site clean) Edema: No Neurological: Yes: Alert Psychiatric: Yes: Alert Labs: CBC, BMP 07/13/20 07:26 07/13/20 07:26 Discharge Summary Problems reviewed: Yes Reason For Visit: SMALL BOWEL OBSTRUCTION ABDOMINAL PAIN Current Active Problems Abdominal pain (Acute) Encounter for screening laboratory testing for COVID-19 virus (Acute) Leukocytosis (Acute) SBO (small bowel obstruction) (Acute) Hospital Course: Pt admitted for SBO. Failed Conservative treatment Underwent surgery. In Summary 84 yo male with SBO and history of multiple surgeries, s/p exp laparotomy for SBO-lysis of adhesion, POD#7 Doing well Cleared by surgical team also for d/c will d/c home Pt will be following in office as well as with surgical team Meds reconciled. Condition: Stable - Instructions Diet, Activity, Other Instructions: Dr. Barakat Discharge Instructions Dear BETTY PEDRO, Post Operative Instructions Physical activity Resume your normal everyday activity as tolerated no heavy lifting or exercise until seen by your surgeon. You may walk unlimited amounts of and climb stairs. You may resume driving the car when you feel safe and comfortable behind the wheel. Wound care You have a liquid bandage over your incisions. This will come off slowly on its own over the next few weeks. Please avoid picking at it if you notice it flaking. You may shower starting tomorrow. When showering allow soap and water to run over the incision. Do not scrub, pat dry after showering. Diet There are no dietary restrictions. Eat healthy, high-fiber foods. Drink 6 to 8 glasses of liquid each day. This will assist in keeping your bowels are regular. Pain management You may take Tylenol or acetaminophen or Ibuprofen (for example, Motrin, Advil etc.) Any pain prescription medication ordered should be taken as prescribed for moderate to severe pain. Call Dr. Barakat for any of the following: Severe pain not relieved by medication Fever of 101 or higher Excessive bleeding or drainage on dressing Inability to urinate Call the office at [phone] for a post operative appointment on Friday07/18/20 Referrals: Brady Garza MD [Primary Care Provider] - Disposition: HOME - Home Medications Comprehensive Discharge Medication List: Ambulatory Orders Finasteride 5 mg PO DAILY 03/12/18 Tamsulosin HCl 0.4 mg PO DAILY 03/12/18 Apixaban [Eliquis -] 5 mg PO BID #0 tablet 07/24/18 Pantoprazole Sodium 40 mg PO DAILY 06/02/19 Walker [Ultra-Light Rollator] 1 each MC DAILY #1 each 07/13/20 Acetaminophen [Tylenol .Regular Strength -] 650 mg PO Q6H PRN tablet 07/14/20
== END 2020-07-14 15:04 | disposition home or self-care (01) | DRG 336 ==
LOC: JER 13:20 → JERBED 18:13 → J7W 19:59 → J8W 07-06 18:45
PROVIDERS: ATTEND Internal Medicine
PROC: 0D9670Z Drainage of Stomach with Drainage Device, Via Natural or Artificial Opening (ICD-10-PCS; 2020-06-28)
PROC: 0DN80ZZ Release Small Intestine, Open Approach (ICD-10-PCS; principal; 2020-07-06 14:00)
DX: K56.50 Intestinal adhesions [bands], unspecified as to partial versus complete obstruction (principal); I48.11 Longstanding persistent atrial fibrillation; Z79.01 Long term (current) use of anticoagulants; N40.0 Benign prostatic hyperplasia without lower urinary tract symptoms; K21.9 Gastro-esophageal reflux disease without esophagitis; D72.829 Elevated white blood cell count, unspecified; E87.6 Hypokalemia; D17.21 Benign lipomatous neoplasm of skin and subcutaneous tissue of right arm
CPT/HCPCS: 36415; 71045-TC-FY; 74018-TC-FY; 74019-TC-FY; 74177-TC; 74251-TC-FY; 80048; 80053; 80074; 82550; 82553; 83605; 83735; 84100; 84439; 84443; 84484; 84550; 85025; 85027; 85610; 85651; 85730; 86850; 86900; 86901; 87040; 87086; 93005; 93010; 94010; 94760; 97116-GP; 97161-GP; 99285-25; J0131; Q9967; U0003

== ENCOUNTER 2023-03-01 14:54 | Inpatient (IN) | payer OTHER, BC ==
[2023-03-01] MEDS ORDERED: FAMOTIDINE 20 MG/50 ML IVPB 20 MG/50 ML MG IVPB ONE ×2 (15:17→15:33)
[2023-03-01] MEDS ORDERED: ONDANSETRON 4 MG/2 ML VIAL IVPB ONE (15:18)
[2023-03-01] MEDS ORDERED: ACETAMINOPHEN 1000 MG/100 ML BAG IVPB ONE (15:18)
[2023-03-01] MEDS ORDERED: ONDANSETRON 4 MG/2 ML VIAL ONE (15:32)
[2023-03-01] MEDS ORDERED: ACETAMINOPHEN INJECTION 100 ML IVPB ONE (15:32)
[2023-03-01 15:36] LABS: BASO % 0.4 % (0-2.0); EOS % 3.4 % (0-4.5); HEMATOCRIT 43.8 % (35.4-49); HEMOGLOBIN 15.2 GM/dL (11.7-16.9); LYMPH % 27.6 % (8-40); MCHC 34.7 g/dl (32.0-35.9); MEAN CELL VOLUME 89.2 fl (80-96); MEAN PLT VOLUME 9.6 fl (7.5-11.1); MONO % 11.1 % (3.8-10.2); NEUT % 57.5 % (42.8-82.8); PLATELET COUNT 168 10^3/uL (134-434); RBC 4.91 M/mm3 (4.00-5.60); RDW 13.4 % (11.9-15.9); WHITE BLOOD COUNT 6.8 K/mm3 (4.0-10.0)
[2023-03-01 15:42] LABS: INR 1.03 (0.83-1.09); PROTHROMBIN TIME (PATIENT) 11.9 SEC (9.7-13.0)
[2023-03-01 15:54] LABS: POTASSIUM 4.5 mmol/L (3.5-5.1)
[2023-03-01 15:56] LABS: ALBUMIN 3.2 g/dl (3.4-5.0); BLOOD UREA NITROGEN 22.8 mg/dL (7-18); CALCIUM 8.9 mg/dL (8.5-10.1)
[2023-03-01 16:01] LABS: BILIRUBIN,TOTAL 0.8 mg/dL (0.2-1); TOT PROT 6.5 g/dl (6.4-8.2)
[2023-03-01] MEDS ORDERED: levETIRAcetam 500 MG/5 ML INJECTION VIAL IVPB ONE ×2 (16:40→16:52)
[2023-03-01] MEDS ORDERED: ONDANSETRON 4 MG/2 ML VIAL IVPUSH PRN (17:19)
[2023-03-01] MEDS: APIXABAN 5 MG TABLET PO SCH (22:07)
[2023-03-02 07:23] LABS: BASO % 0.4 % (0-2.0); EOS % 3.4 % (0-4.5); HEMATOCRIT 40.6 % (35.4-49); HEMOGLOBIN 14.1 GM/dL (11.7-16.9); LYMPH % 20.3 % (8-40); MCHC 34.8 g/dl (32.0-35.9); MEAN CELL VOLUME 89.2 fl (80-96); MEAN PLT VOLUME 9.3 fl (7.5-11.1); MONO % 9.8 % (3.8-10.2); NEUT % 66.1 % (42.8-82.8); PLATELET COUNT 175 10^3/uL (134-434); RBC 4.55 M/mm3 (4.00-5.60); RDW 13.5 % (11.9-15.9); WHITE BLOOD COUNT 7.9 K/mm3 (4.0-10.0)
[2023-03-02 07:37] LABS: POTASSIUM 4.3 mmol/L (3.5-5.1)
[2023-03-02 07:42] LABS: CALCIUM 8.2 mg/dL (8.5-10.1)
[2023-03-02 07:43] LABS: ALBUMIN 2.9 g/dl (3.4-5.0); BLOOD UREA NITROGEN 15.1 mg/dL (7-18)
[2023-03-02 07:45] LABS: CREATININE 0.9 mg/dL (0.55-1.3)
[2023-03-02 07:47] LABS: BILIRUBIN,TOTAL 1.2 mg/dL (0.2-1); TOT PROT 5.8 g/dl (6.4-8.2)
[2023-03-02] MEDS: TAMSULOSIN HCL 0.4 MG CAP PO SCH (09:13)
[2023-03-02] MEDS: PANTOPRAZOLE 40 MG TABLET PO SCH (09:13)
[2023-03-02] MEDS: FINASTERIDE 5 MG TABLET (FP) PO SCH (09:13)
[2023-03-02] MEDS: APIXABAN 5 MG TABLET PO SCH ×2 (09:13→21:07)
[2023-03-02 09:54] LABS: URINE APPEARANCE CLEAR; URINE BILIRUBIN NEGATIVE (NEGATIVE); URINE COLOR YELLOW; URINE GLUCOSE (UA) NEGATIVE (NEGATIVE); URINE KETONE NEGATIVE (NEGATIVE); URINE LEUK ESTERASE NEGATIVE (NEGATIVE); URINE NITRITE NEGATIVE (NEGATIVE); URINE PROTEIN NEGATIVE (NEGATIVE); URINE UROBILINOGEN 0.2 mg/dL (0.2-1.0)
[2023-03-02] MEDS: levETIRAcetam 250 MG TABLET PO SCH ×2 (10:33→21:07)
[2023-03-02 11:56] LABS: MAGNESIUM 1.9 mg/dL (1.8-2.4)
[2023-03-02 14:09] VITALS: BMI 23.6
[2023-03-03] MEDS: TAMSULOSIN HCL 0.4 MG CAP PO SCH (08:06)
[2023-03-03] MEDS: levETIRAcetam 250 MG TABLET PO SCH ×2 (10:20→21:39)
[2023-03-03] MEDS: PANTOPRAZOLE 40 MG TABLET PO SCH (10:20)
[2023-03-03] MEDS: APIXABAN 5 MG TABLET PO SCH ×2 (10:20→21:39)
[2023-03-03] MEDS: FINASTERIDE 5 MG TABLET (FP) PO SCH (10:20)
[2023-03-04] MEDS: APIXABAN 5 MG TABLET PO SCH ×2 (09:22→21:25)
[2023-03-04] MEDS: TAMSULOSIN HCL 0.4 MG CAP PO SCH (09:22)
[2023-03-04] MEDS: levETIRAcetam 250 MG TABLET PO SCH ×2 (09:23→21:25)
[2023-03-04] MEDS: PANTOPRAZOLE 40 MG TABLET PO SCH (09:23)
[2023-03-04] MEDS: FINASTERIDE 5 MG TABLET (FP) PO SCH (09:23)
[2023-03-04] MEDS: ACETAMINOPHEN 325 MG TABLET (FP) PO PRN ×2 (15:32→20:19)
[2023-03-05] MEDS: ACETAMINOPHEN 325 MG TABLET (FP) PO PRN (05:52)
[2023-03-05] MEDS: TAMSULOSIN HCL 0.4 MG CAP PO SCH (08:29)
[2023-03-05 09:42] VITALS: BP 118/69; PULSE 80; RESP 18; TEMP 97.7
[2023-03-05] MEDS: FINASTERIDE 5 MG TABLET (FP) PO SCH (09:43)
[2023-03-05] MEDS: PANTOPRAZOLE 40 MG TABLET PO SCH (09:43)
[2023-03-05] MEDS: APIXABAN 5 MG TABLET PO SCH (09:43)
[2023-03-05] MEDS: levETIRAcetam 250 MG TABLET PO SCH (09:43)
== END 2023-03-05 13:03 | disposition home or self-care (01) | DRG 101 ==
LOC: JER 14:54 → INTOOBSV 16:36 → JERBED 16:36 → J4W 18:55 → OBSVTOIN 03-03 18:22
PROVIDERS: ADMIT Internal Medicine; ATTEND Internal Medicine
DX: R56.9 Unspecified convulsions (principal); N40.0 Benign prostatic hyperplasia without lower urinary tract symptoms; K21.9 Gastro-esophageal reflux disease without esophagitis; Z86.73 Personal history of transient ischemic attack (TIA), and cerebral infarction without residual deficits; I48.0 Paroxysmal atrial fibrillation; I44.1 Atrioventricular block, second degree
CPT/HCPCS: 0241U-QW; 36415; 70450-TC; 70551-TC; 71045-TC-FY; 80053; 81003; 82962; 83735; 84443; 84484; 85025; 85610; 85730; 87086; 93005; 93010; 93306-TC; 99285-25; G0378

== ENCOUNTER 2024-01-10 13:18 | Observation (INO) | payer OTHER, BC ==
[2024-01-10] MEDS ORDERED: ACETAMINOPHEN INJECTION 100 ML IVPB ONE ×2 (14:06→20:09)
[2024-01-10] MEDS ORDERED: MAG HYDROX/AL HYDROX/SIMETH 30 ML UNIT-DOSE CUP ONE (14:07)
[2024-01-10] MEDS ORDERED: ONDANSETRON 4 MG/2 ML VIAL ONE (14:07)
[2024-01-10] MEDS ORDERED: FAMOTIDINE 20 MG/50 ML IVPB 20 MG/50 ML MG IVPB ONE (14:36)
[2024-01-10] MEDS: ACETAMINOPHEN 1000 MG/100 ML BAG IVPB ONE ×2 (14:43→19:55)
[2024-01-10] MEDS: FAMOTIDINE 20 MG/50 ML IVPB 20 MG/50 ML MG IVPB ONE (14:43)
[2024-01-10] MEDS: ONDANSETRON 4 MG/2 ML VIAL IVPUSH ONE (14:43)
[2024-01-10] MEDS: MAG HYDROX/AL HYDROX/SIMETH -MYLANTA- ORAL SUSPENSION PO ONE (14:43)
[2024-01-10 14:54] LABS: BASO % 0.4 % (0-2.0); HEMATOCRIT 44.1 % (35.4-49); HEMOGLOBIN 14.6 GM/dL (11.7-16.9); MCH 30.3 pg (25.7-33.7); MEAN CELL VOLUME 91.9 fl (80-96); MONO % 9.3 % (3.8-10.2); NEUT % 79.3 % (42.8-82.8); PLATELET COUNT 176 10^3/uL (134-434); RBC 4.81 M/mm3 (4.00-5.60); RDW 13.9 % (11.9-15.9); WHITE BLOOD COUNT 10.8 K/mm3 (4.0-10.0)
[2024-01-10 15:02] LABS: INR 1.33 (0.83-1.09); PROTHROMBIN TIME (PATIENT) 15.4 SEC (9.7-13.0)
[2024-01-10 15:13] LABS: POTASSIUM 4.1 mmol/L (3.5-5.1)
[2024-01-10 15:15] LABS: ALBUMIN 3.1 g/dl (3.4-5.0); CALCIUM 8.8 mg/dL (8.5-10.1)
[2024-01-10 15:19] LABS: CREATININE 0.9 mg/dL (0.55-1.3)
[2024-01-10 15:20] LABS: BILIRUBIN,TOTAL 1.6 mg/dL (0.2-1); TOT PROT 6.5 g/dl (6.4-8.2)
[2024-01-10] MEDS ORDERED: LIDOCAINE 4% PATCH TP ONE (17:18)
[2024-01-10] MEDS: LIDOCAINE 4% PATCH TP ONE (17:25)
[2024-01-10] MEDS ORDERED: DOCUSATE SODIUM 100 MG CAPSULE (FP) PO PRN (19:32)
[2024-01-10] MEDS ORDERED: ONDANSETRON 4 MG/2 ML VIAL IVPUSH PRN (19:32)
[2024-01-10] MEDS ORDERED: FUROSEMIDE 40 MG/4 ML INJECTABLE VIAL ONE (19:59)
[2024-01-10] MEDS: FUROSEMIDE 40 MG/4 ML INJECTABLE VIAL IVPUSH ONE (20:09)
[2024-01-10] MEDS: ACETAMINOPHEN 1000 MG/100 ML BAG IVPB PRN (20:23)
[2024-01-10] MEDS ORDERED: MAG HYDROX/AL HYDROX/SIMETH 30 ML UNIT-DOSE CUP PO PRN (20:25)
[2024-01-11] MEDS ORDERED: ACETAMINOPHEN INJECTION 100 ML IVPB ONE (01:51)
[2024-01-11] MEDS: LIDOCAINE PATCH REMOVAL MC SCH (03:55)
[2024-01-11 08:12] LABS: POTASSIUM 4.1 mmol/L (3.5-5.1)
[2024-01-11 08:18] LABS: BLOOD UREA NITROGEN 19.9 mg/dL (7-18); CALCIUM 8.1 mg/dL (8.5-10.1); MAGNESIUM 2.2 mg/dL (1.8-2.4)
[2024-01-11 08:21] LABS: CREATININE 1.1 mg/dL (0.55-1.3); PHOSPHOROUS 3.7 mg/dL (2.5-4.9)
[2024-01-11 08:27] LABS: BASO % 0.4 % (0-2.0); EOS % 2.6 % (0-4.5); HEMATOCRIT 41.3 % (35.4-49); HEMOGLOBIN 13.8 GM/dL (11.7-16.9); LYMPH % 16.8 % (8-40); MCH 30.5 pg (25.7-33.7); MCHC 33.5 g/dl (32.0-35.9); MEAN CELL VOLUME 91.2 fl (80-96); MEAN PLT VOLUME 9.8 fl (7.5-11.1); MONO % 13.5 % (3.8-10.2); NEUT % 66.7 % (42.8-82.8); PLATELET COUNT 160 10^3/uL (134-434); RBC 4.53 M/mm3 (4.00-5.60); RDW 13.9 % (11.9-15.9); WHITE BLOOD COUNT 7.4 K/mm3 (4.0-10.0)
[2024-01-11] MEDS ORDERED: FUROSEMIDE 20 MG TABLET (FP) PO SCH (10:00)
[2024-01-11] MEDS ORDERED: PANTOPRAZOLE SOD 40 MG SUSPENSION PACKET PO SCH (10:00)
[2024-01-11] MEDS: APIXABAN 5 MG TABLET PO SCH (10:15)
[2024-01-11] MEDS: TAMSULOSIN HCL 0.4 MG CAP PO SCH (10:16)
[2024-01-11] MEDS: PANTOPRAZOLE 40 MG TABLET PO SCH (10:16)
[2024-01-11] MEDS: FINASTERIDE 5 MG TABLET (FP) PO SCH (10:16)
[2024-01-11] MEDS: levETIRAcetam 250 MG TABLET PO SCH (10:16)
[2024-01-11 10:59] VITALS: BMI 26.3
[2024-01-11] MEDS: ACETAMINOPHEN 325 MG TABLET (FP) PO PRN (20:48)
[2024-01-11] MEDS: MELATONIN 5 MG TABLETS PO PRN (20:57)
[2024-01-11] MEDS: ACETAMINOPHEN 1000 MG/100 ML BAG IVPB PRN (21:29)
[2024-01-11] MEDS: LIDOCAINE 4% PATCH TP SCH (21:30)
[2024-01-12 08:17] LABS: POTASSIUM 4.2 mmol/L (3.5-5.1)
[2024-01-12 08:32] LABS: CALCIUM 8.4 mg/dL (8.5-10.1)
[2024-01-12 08:33] LABS: ALBUMIN 2.9 g/dl (3.4-5.0); BLOOD UREA NITROGEN 24.9 mg/dL (7-18)
[2024-01-12 08:37] LABS: BILIRUBIN,TOTAL 0.8 mg/dL (0.2-1)
[2024-01-12 08:48] LABS: BASO % 0.6 % (0-2.0); EOS % 3.7 % (0-4.5); HEMATOCRIT 40.5 % (35.4-49); HEMOGLOBIN 13.9 GM/dL (11.7-16.9); LYMPH % 30.2 % (8-40); MCH 31.3 pg (25.7-33.7); MCHC 34.2 g/dl (32.0-35.9); MEAN CELL VOLUME 91.5 fl (80-96); MEAN PLT VOLUME 9.5 fl (7.5-11.1); MONO % 16.6 % (3.8-10.2); NEUT % 48.9 % (42.8-82.8); PLATELET COUNT 158 10^3/uL (134-434); RBC 4.43 M/mm3 (4.00-5.60); RDW 13.6 % (11.9-15.9); WHITE BLOOD COUNT 5.8 K/mm3 (4.0-10.0)
[2024-01-12] MEDS: LIDOCAINE PATCH REMOVAL MC SCH (09:01)
[2024-01-12] MEDS: FUROSEMIDE 40 MG/4 ML INJECTABLE VIAL IVPUSH SCH (11:18)
[2024-01-12 13:02] VITALS: BP 129/63; PULSE 67; RESP 22; TEMP 97.9
== END 2024-01-12 13:06 | disposition home or self-care (01) ==
LOC: JER 13:18 → JERBED 19:30 → J4W 01-11 08:40
PROVIDERS: ADMIT Internal Medicine; ATTEND Internal Medicine
PROC: 3E033NZ Introduction of Analgesics, Hypnotics, Sedatives into Peripheral Vein, Percutaneous Approach (ICD-10-PCS; principal; 2024-01-10)
PROC: 3E033GC Introduction of Other Therapeutic Substance into Peripheral Vein, Percutaneous Approach (ICD-10-PCS; 2024-01-10)
DX: I70.8 Atherosclerosis of other arteries (principal); I11.0 Hypertensive heart disease with heart failure; I48.91 Unspecified atrial fibrillation; I48.11 Longstanding persistent atrial fibrillation; K21.9 Gastro-esophageal reflux disease without esophagitis; I48.0 Paroxysmal atrial fibrillation; N40.0 Benign prostatic hyperplasia without lower urinary tract symptoms; M19.90 Unspecified osteoarthritis, unspecified site; Z90.49 Acquired absence of other specified parts of digestive tract; K56.609 Unspecified intestinal obstruction, unspecified as to partial versus complete obstruction; R60.0 Localized edema; K40.90 Unilateral inguinal hernia, without obstruction or gangrene, not specified as recurrent; E88.09 Other disorders of plasma-protein metabolism, not elsewhere classified; Z79.01 Long term (current) use of anticoagulants; Z86.73 Personal history of transient ischemic attack (TIA), and cerebral infarction without residual deficits; Z91.013 Allergy to seafood
CPT/HCPCS: 0241U-QW; 36415; 71045-TC-FY; 71275-TC; 73030-TC-LT-FY; 74174-TC; 80048; 80053; 83605; 83690; 83735; 83880; 84100; 84439; 84443; 84484; 85025; 85610; 85730; 86850; 86900; 86901; 93005; 93010; 93306-TC; 96365; 96375; 96376; 99285-25; G0378; J0131; Q9967

== ENCOUNTER 2025-03-06 20:00 | Inpatient (IN) | payer OTHER, BC ==
[2025-03-06 20:14] VITALS: BMI 25.8
[2025-03-06 21:25] LABS: ABSOLUTE IMMATURE GRANULOCYTES 0.03 x10^3/uL (0.0-0.031); BASOPHILS # 0.04 x10^3/uL (0.01-0.08); EOSINOPHIL % 2.2 % (0.8-7.0); EOSINOPHILS # 0.18 x10^3/uL (0.04-0.54); HEMATOCRIT 44.3 % (40.1-51.0); HEMOGLOBIN 14.8 g/dL (13.7-17.5); MCHC 33.4 g/dl (32.3-36.5); MEAN CELL VOLUME 93.3 fl (79.0-92.2); MONOCYTE # 0.93 x10^3/uL (0.30-0.82); MONOCYTE % 11.3 % (5.3-12.2); PLATELET COUNT 185 x10^3/uL (163-337)
[2025-03-06 21:43] LABS: POTASSIUM 5.5 mmol/L (3.5-5.1)
[2025-03-06 21:45] LABS: CALCIUM 9.2 mg/dL (8.5-10.1)
[2025-03-06 21:46] LABS: ALBUMIN 3.3 g/dl (3.4-5.0); MAGNESIUM 2.4 mg/dL (1.8-2.4)
[2025-03-06 21:47] LABS: BLOOD UREA NITROGEN 27.1 mg/dL (7-18)
[2025-03-06 21:49] LABS: CREATININE 1.3 mg/dL (0.55-1.3)
[2025-03-06 21:50] LABS: BILIRUBIN,TOTAL 1.6 mg/dL (0.2-1)
[2025-03-06 21:51] LABS: TOT PROT 6.7 g/dl (6.4-8.2)
[2025-03-06 22:03] LABS: N-TERMINAL BNP 2667.5 pg/ml (5-450)
[2025-03-06] MEDS ORDERED: FUROSEMIDE 40 MG/4 ML INJECTABLE VIAL ONE (22:26)
[2025-03-06] MEDS: FUROSEMIDE 100 MG/10 ML INJECTABLE VIAL IVPB ONE (22:30)
[2025-03-06 23:22] LABS: URINE APPEARANCE CLEAR; URINE BILIRUBIN NEGATIVE (NEGATIVE); URINE COLOR YELLOW; URINE GLUCOSE (UA) NEGATIVE (NEGATIVE); URINE KETONE NEGATIVE (NEGATIVE); URINE LEUK ESTERASE NEGATIVE (NEGATIVE); URINE NITRITE NEGATIVE (NEGATIVE); URINE PROTEIN NEGATIVE (NEGATIVE); URINE UROBILINOGEN 0.2 mg/dL (0.2-1.0)
[2025-03-06 23:43] LABS: POTASSIUM 4.3 mmol/L (3.5-5.1)
[2025-03-06 23:44] LABS: CALCIUM 9.1 mg/dL (8.5-10.1)
[2025-03-06 23:45] LABS: BLOOD UREA NITROGEN 28.2 mg/dL (7-18)
[2025-03-06 23:48] LABS: CREATININE 1.3 mg/dL (0.55-1.3)
[2025-03-06] MEDS ORDERED: ACETAMINOPHEN 325 MG TABLET (FP) PO PRN (23:55)
[2025-03-06] MEDS ORDERED: DOCUSATE SODIUM 100 MG CAPSULE (FP) PO PRN (23:55)
[2025-03-07] MEDS ORDERED: MAG HYDROX/AL HYDROX/SIMETH 30 ML UNIT-DOSE CUP PO PRN (03:44)
[2025-03-07] MEDS: levETIRAcetam 250 MG TABLET PO SCH (04:53)
[2025-03-07] MEDS: FUROSEMIDE 40 MG/4 ML INJECTABLE VIAL IVPUSH SCH (09:45)
[2025-03-07] MEDS: PANTOPRAZOLE 40 MG TABLET PO SCH (09:45)
[2025-03-07] MEDS: FINASTERIDE 5 MG TABLET (FP) PO SCH (09:45)
[2025-03-07] MEDS: TAMSULOSIN HCL 0.4 MG CAP PO SCH (09:45)
[2025-03-07] MEDS: APIXABAN 5 MG TABLET PO SCH (09:45)
[2025-03-07] MEDS: MELATONIN 5 MG TABLETS PO PRN (22:01)
[2025-03-08 06:43] LABS: ABSOLUTE IMMATURE GRANULOCYTES 0.03 x10^3/uL (0.0-0.031); BASOPHILS # 0.03 x10^3/uL (0.01-0.08); EOSINOPHIL % 3.3 % (0.8-7.0); EOSINOPHILS # 0.23 x10^3/uL (0.04-0.54); HEMATOCRIT 43.3 % (40.1-51.0); HEMOGLOBIN 13.8 g/dL (13.7-17.5); MCHC 31.9 g/dl (32.3-36.5); MEAN CELL VOLUME 92.1 fl (79.0-92.2); MEAN PLT VOLUME 11.5 fl (9.4-12.4); MONOCYTE # 0.71 x10^3/uL (0.30-0.82); MONOCYTE % 10.3 % (5.3-12.2); PLATELET COUNT 162 x10^3/uL (163-337); RDW 13.8 % (12.6-16.6)
[2025-03-08 06:51] LABS: INR 1.62 (0.83-1.09); PROTHROMBIN TIME (PATIENT) 17.8 SEC (9.7-13.0)
[2025-03-08 06:54] LABS: ACTIVATED PTT 30.9 SECONDS (25.2-36.5)
[2025-03-08 09:06] LABS: POTASSIUM 3.7 mmol/L (3.5-5.1)
[2025-03-08 09:27] LABS: BLOOD UREA NITROGEN 26.6 mg/dL (7-18); CALCIUM 8.9 mg/dL (8.5-10.1); MAGNESIUM 2.3 mg/dL (1.8-2.4)
[2025-03-08 09:30] LABS: CREATININE 0.9 mg/dL (0.55-1.3)
[2025-03-08 09:31] LABS: PHOSPHOROUS 3.8 mg/dL (2.5-4.9)
[2025-03-11 03:11] VITALS: RESP 18
[2025-03-11 09:26] VITALS: BP 118/71; PULSE 59; TEMP 97.5
== END 2025-03-11 14:02 | disposition home or self-care (01) | DRG 292 ==
LOC: JER 20:00 → JERBED 20:24 → J4W 03-07 02:14 → OBSVTOIN 03-08 11:04
PROVIDERS: ADMIT Internal Medicine; ATTEND Internal Medicine
DX: I50.22 Chronic systolic (congestive) heart failure (principal); I48.21 Permanent atrial fibrillation; N40.0 Benign prostatic hyperplasia without lower urinary tract symptoms; K21.9 Gastro-esophageal reflux disease without esophagitis; R60.9 Edema, unspecified; M50.30 Other cervical disc degeneration, unspecified cervical region
CPT/HCPCS: 36415; 71045-TC-FY; 80048; 80053; 81003; 83735; 83880; 84100; 84484; 85025; 85610; 85730; 93005; 93010; 93306-TC; 93970-TC; 97116-GP; 97161-GP; 99285-25; G0378